=== PATIENT | male | born 1950 | race African-American/Black ===

== ENCOUNTER 2017-12-15 10:45 | Outpatient (RCR) | payer MEDICARE, SELFPAY ==
[2017-11-22 00:48] VITALS: BP 120/74; PULSE 74; RESP 22; TEMP 36.4; O2SAT 96; BMI 22.4
== END 2017-12-22 23:59 ==
LOC: PR 10:45
PROVIDERS: Family Provider Family Medicine; PCP Family Medicine; Visit Provider Internal Medicine Critical Care Medicine
DX: J44.9 Chronic obstructive pulmonary disease, unspecified (principal); J62.8 Pneumoconiosis due to other dust containing silica; Z72.0 Tobacco use
CPT/HCPCS: 97150; G0424

== ENCOUNTER 2018-05-01 20:20 | Inpatient (IN) | payer MEDICARE, OTHER, SELFPAY ==
--- NOTE | 2018-05-01 12:37 | EKG12_ITS ---
Test Reason : REPEAT EKG Blood Pressure : / mmHG Vent. Rate : 079 BPM Atrial Rate : 079 BPM P-R Int : 140 ms QRS Dur : 108 ms QT Int : 360 ms P-R-T Axes : 075 -37 089 degrees QTc Int : 412 ms Normal sinus rhythm Left axis deviation Nonspecific ST and T wave abnormality Abnormal ECG Confirmed by LIZET NGUYEN, SASCHA ([id number]), web content editor MALIA INGRAM ([id number]) on 05/04/2018 5:47:13 PM Referred By: Clayton Joyce Confirmed By:SASCHA HINDS MD
--- NOTE | 2018-05-01 12:38 | EKG12_ITS ---
Test Reason : AM EKG Blood Pressure : / mmHG Vent. Rate : 108 BPM Atrial Rate : 150 BPM P-R Int : 156 ms QRS Dur : 108 ms QT Int : 370 ms P-R-T Axes : 055 -48 083 degrees QTc Int : 495 ms Sinus tachycardia with occasional Premature ventricular complexes Left axis deviation Abnormal ECG Confirmed by DUNCAN NGUYEN, KAHLIL ([id number]), greeting card editor MALIA INGRAM ([id number]) on 05/06/2018 1:45:42 PM Referred By: Clayton Joyce Confirmed By:KAHLIL SONG MD
--- NOTE | 2018-05-01 20:45 | RAD_ITS ---
STUDY: X-RAY CHEST REASON FOR EXAM: Male, 67 years old. Short of breath TECHNIQUE: AP portable COMPARISON: July 07, 2017 FINDINGS: Lungs are hyperinflated.. There is an irregular nodular opacity in the right upper lobe. There appears to be symmetric pulmonary interstitial edema or infiltrate in the left lung There is a small left pleural effusion. Heart is enlarged. Normal mediastinum and yee. Normal visualized pulmonary arteries. Tortuous aortic arch and descending thoracic aorta. Pacemaker noted on the left with electrodes in satisfactory position. Dorsal spine demonstrates spondylosis. Normal visualized ribs, clavicles, and shoulders. There is no demonstrated abnormality of the visualized soft tissue structures of the upper abdomen. RAD/Chest 1 View (Portable) IMPRESSION: Asymmetric unilateral pulmonary interstitial edema or infiltrate with small effusion. Persistent irregular nodular opacity in the right upper lobe Electronically Signed: Elijah Munoz MD at 21:15 EDT , Service support ,
--- NOTE | 2018-05-01 22:50 | DT_ITS ---
This patient was seen during an EMR downtime April 25, 2018 - May 02, 2018. This patient may have a combination of paper and electronic documentation or all paper documentation. All documentation is viewable within the e-chart portion of [facility] for each patient visit.
[2018-05-02] VITALS (14 sets, daily range): BP systolic 103–104; BP diastolic 60–67; PULSE 62–127; RESP 17–25; TEMP 36.7–36.8; O2SAT 97–100
[2018-05-02 03:30] LABS: Absolute Lymphocyte Count 0.22 X10^3/ul (0.83-4.51); Absolute Neutrophil Count 3.3 X10^3/uL (2.0-7.7); Hematocrit 32.5 % (40-54); Hemoglobin 9.3 g/dl (13.0-16.5); Lymphocyte # 0.22 X10^3/ul (4.0); Lymphocyte % 6.3 % (19-41); Mean Corp Hgb Conc 28.6 g/gl (32-36); Mean Corpuscular Hgb 27.7 pg (27.0-32.0); Mean Corpuscular Volume 96.7 fL (80-94); Mean Platelet Vol. 9.4 fl (6.2-12.0); Monocyte# 0.04 X10^3/uL; Monocyte% 1.1 % (0-10); Neutrophil # 3.26 X10^3/uL (2.7-7.7); Neutrophil % 92.6 % (47-70); Platelet Count 102 K/mm3 (150-450); RBC Distribution Width CV 14.3 % (11.6-14.6); RBC Distribution Width SD 48.2 fl (35.1-43.9); Red Blood Count 3.36 M/mm3 (4.6-6.2); White Blood Count 3.5 K/mm3 (4.4-11.0)
[2018-05-02 03:32] LABS: Differential Indicated SCAN CRITERIA MET; POSITIVE COUNT NO; POSITIVE DIFFERENTIAL YES; POSITIVE MORPHOLOGY YES
--- NOTE | 2018-05-02 05:55 | RAD_ITS ---
STUDY: X-RAY CHEST REASON FOR EXAM: Male, 67 years old. Chronic respiratory failure. COPD. TECHNIQUE: PA and lateral chest. COMPARISON: July 07, 2017. FINDINGS: Lungs are hyperinflated. Scattered areas of fibrosis primarily involving the upper lobes. No focal infiltrates or effusions. No pneumothorax. Cardiac pacemaker left hemithorax. Postoperative changes of lower cervical fusion. Normal size heart. Normal mediastinum and yee. Normal visualized pulmonary arteries. Normal visualized aortic arch and descending thoracic aorta. Normal visualized thoracic spine. Normal visualized ribs, clavicles, and shoulders. There is no demonstrated abnormality of the visualized soft tissue structures of the upper abdomen. RAD/Chest PA and Lateral IMPRESSION: Stable chest, no acute cardiopulmonary disease. COPD. Electronically Signed: Arpan Sabillon MD at 7:23 EDT , Service support ,
[2018-05-02] MEDS: hydrALAZINE 50 MG Tablet PO (06:15)
[2018-05-02] MEDS: 0.9% NaCl Peripheral Flush Adult/Peds IV (06:15)
[2018-05-02] MEDS: Budesonide Respules 0.5 MG/2 ML AMPUL.NEB. INHALATION ×2 (07:00→18:43)
[2018-05-02] MEDS: Ipratropium/Albuterol Sulfate 3 ML AMPUL.NEB INHALATION ×5 (07:00→23:03)
[2018-05-02] MEDS: Carvedilol 25 MG Tablet PO ×2 (10:28→21:50)
[2018-05-02] MEDS: APIXABAN 5 MG TABLET PO ×2 (10:28→21:49)
[2018-05-02] MEDS: Isosorbide Mononitrate 30 MG Tablet PO (10:28)
[2018-05-02] MEDS: Spironolactone 25 MG Tablet PO (10:28)
[2018-05-02] MEDS: Ferrous Sulfate 325 MG Tablet PO (10:28)
[2018-05-02] MEDS: Furosemide 40 MG Tablet PO ×2 (10:29→18:00)
[2018-05-02] MEDS: Digoxin 250 MCG Tablet PO (10:29)
[2018-05-02] MEDS: Memantine Hydrochloride 10 MG Tablet PO ×2 (10:29→21:49)
--- NOTE | 2018-05-02 10:29 | CON.PCM_ITS ---
Problem List (1) Acute on chronic respiratory failure with hypoxia and hypercapnia Status: Acute (2) COPD exacerbation Status: Acute (3) PETE (obstructive sleep apnea) Status: Chronic (4) Hypersomnia Status: Chronic (5) Stage 4 very severe COPD by GOLD classification Status: Chronic (6) Tobacco abuse Status: Chronic (7) Silicosis Status: Chronic (8) History of implantable cardioverter-defibrillator (ICD) placement Status: Chronic (9) Hypertension Status: Chronic Reason for Consult Date of Consultation: 05/02/18 Reason for Consultation: Respiratory failure, severe COPD History of Present Illness: The patient is a 67 year old M with past medical history as below, presented to the ED on 05/01/18 with complaints of a 3 day history of increased shortness of breath that worsened with exertion, wheezing, and fatigue. Patient follows the pulmonary clinic with Dr. Arnett and Kenna Trinh for stage IV COPD, PETE, combined respiratory failure, history of silicosis. He is on supplemental oxygen at home. He was last seen in February 2018 for management of his lung problems. He reports compliance with his BiPAP at home. Patient on maintenance dose of 10 mg prednisone daily. Patient does continue to smoke cigarettes despite urging in the past to quit. He admits not wearing his oxygen at all times at home. Patient unable to answer many of my questions, states he forgets easily and his usually handles everything. She is not present at the time of consultation. Patient denies any fever or chills, nausea, vomiting, or diarrhea. He denies any dizziness or orthopnea. Reports very minimal improvement in his overall breathing status. Most information was obtained from patient's medical record. He has required frequent prednisone taper for COPD exacerbations in the past. He has completed cardiac and pulmonary rehab in the past. Vital signs on arrival are stable, blood pressure 113/69, pulse 85, RR 22, 97.8 , and 94% on 3 L of oxygen. Blood work revealed WBC 3.5, hemoglobin 9.3, platelet 102. Chemistry is pending. A blood gas was drawn on 05/01/18 and revealed a pH of 7.33, PCO2 of 95.6, PO2 of 41, bicarbonate 50, and a base excess of 24. I did review past ABG results which were similar to current. Chest x-ray showed nothing acute, just hyperinflation and scattered areas of fibrosis primarily involving the upper lobes. The patient was treated in the emergency room with aerosols, Solu-Medrol, antibiotics, and BiPAP secondary to respiratory distress. He was admitted to the progressive care unit for further evaluation and management. He did improve with BiPAP therapy and wore it throughout the night. He is currently maintaining appropriate saturations on his home oxygen requirement of 3 L. He is on his baseline Lasix therapy of 40 mg p.o. A viral respiratory panel and blood cultures were ordered, however those results are not available to me at this time. Past Medical History Past Medical History (Chronic Problems): Chronic Problems (Last Reviewed 03/04/18 @ 09:42 by Kenna Trinh NP-C) PETE (obstructive sleep apnea) (Chronic) Hypersomnia (Chronic) PETE (obstructive sleep apnea) (Chronic) Stage 4 very severe COPD by GOLD classification (Chronic) Tobacco abuse (Chronic) Hypercapnic respiratory failure, chronic (Chronic) Acute and chronic respiratory failure with hypercapnia (Chronic) Chronic respiratory failure (Chronic) Silicosis (Chronic) History of implantable cardioverter-defibrillator (ICD) placement (Chronic) CHF (congestive heart failure) (Chronic) COPD (chronic obstructive pulmonary disease) (Chronic) Hypertension (Chronic) Medical History: Medical History (Last Reviewed 03/04/18 @ 09:42 by Kenna Trinh NP-C) Hypersomnia (Chronic) G47.10 Pleural effusion (Acute) J90 Runny nose (Acute) R09.89 PETE (obstructive sleep apnea) (Chronic) G47.33 Stage 4 very severe COPD by GOLD classification (Chronic) J44.9 Tobacco abuse (Chronic) Z72.0 Shortness of breath (Acute) R06.02 Confusion (Acute) R41.0 Hypercapnic respiratory failure, chronic (Chronic) J96.12 Acute and chronic respiratory failure with hypercapnia (Chronic) J96.22 Paroxysmal atrial fibrillation (Acute) I48.0 Chronic respiratory failure (Chronic) J96.10 Silicosis (Chronic) J62.8 Acute on chronic systolic (congestive) heart failure (Acute) I50.23 Pneumothorax on left (Acute) J93.9 CHF (congestive heart failure) (Chronic) I50.9 COPD (chronic obstructive pulmonary disease) (Chronic) J44.9 Hypertension (Chronic) I10 Allergies aspirin Adverse Reaction (Verified 11/17/17 12:54) Upset Stomach Home Medications: Ambulatory Orders Medication Instructions Recorded Carvedilol [Coreg (Beta Virgie)] 25 mg PO BID 09/09/15 Finasteride [Proscar] 5 mg PO DAILY 09/09/15 Vit B12/Levomefolate/Vit B6/B2 1 tab PO 1700 09/09/15 [l-Methyl-Mc Tablet] Apixaban [Eliquis] 5 mg PO BID 06/19/16 Isosorbide Mononitrate [Imdur] 30 mg PO DAILY 06/19/16 Oxygen, Home [Home Oxygen] 3 lpm NASAL DAILY PRN PRN 08/12/16 hydrALAZINE [Apresoline] 50 mg PO TID 08/12/16 Spironolactone [Aldactone] 25 mg PO DAILY 12/11/16 Lisinopril [Zestril] 20 mg PO QHS 03/19/17 Acetaminophen [Tylenol Tablet] 650 mg PO Q6H PRN PRN #0 tab 03/22/17 Digoxin [Lanoxin] 250 mcg PO DAILY tab 03/22/17 Furosemide [Lasix] 40 mg PO BID@1000,1800 tab 03/22/17 Potassium Chloride [K-Dur] 20 meq PO DAILY tab 03/22/17 Ferrous Sulfate 325 mg PO DAILY@0800 04/02/17 Gabapentin [Neurontin] 100 mg PO BID 04/02/17 Omeprazole [Prilosec] 20 mg PO BID 04/02/17 predniSONE tablet 10 mg PO DAILY 04/02/17 memantine 5 mg tablet 5 mg PO QDAY 11/09/17 nystatin 100,000 unit/mL oral 5 ml MUCOUS MEMBRANE TID #250 ml 11/17/17 suspension ipratropium-albuterol 0.5 mg-3 3 ml INHALATION Q4H PRN PRN #180 ml 11/18/17 mg(2.5 mg base)/3 mL nebulization soln budesonide 0.5 mg/2 mL suspension 0.5 mg INHALATION Q6H #60 ml 11/19/17 for nebulization prednisone 10 mg tablet 10 mg PO QDAY #30 tab 03/02/18 Surgical History: Surgical History (Last Reviewed 03/04/18 @ 09:42 by ARAM Garcia) History of implantable cardioverter-defibrillator (ICD) placement (Chronic) Z95.810 Surgical History: total knee arthroplasty, - - back surgery, brain surgery for aneurysm. ICD insertion Psychiatric History: No pertinent psych hx Lives: Spouse/ Significant Other Tobacco Use: Cigarettes, Vapor Alcohol: None Drugs: None - *Family History Paternal Family History: Family History (Last Reviewed 03/04/18 @ 09:42 by ARAM Garcia) Father Lung disease Brother Cancer History Items: No pertinent history Maternal Family History: Family History (Last Reviewed 03/04/18 @ 09:42 by ARAM Garcia) Father Lung disease Brother Cancer History Items: No pertinent history Review of Systems Constitutional: Reports: Weakness. Denies: Anorexia, Chills, Fever, Night Sweats, Malaise, Weight Change, Fatigue Eyes: Denies: Vision Change HEENT: Reports: Hard of Hearing. Denies: Difficulty Swallowing, Nasal Congestion, Post Nasal Drip, Sinus Congestion, Sore Throat Cardiovascular: Reports: Chest Tightness. Denies: Chest Pain, Edema, Light Headedness, Orthopnea, Palpitations, Paroxysmal Noc. Dyspnea, Syncope Respiratory: Reports: Shortness of breath upon exertion, Wheezing. Denies: Cough, Hemoptysis, Shortness of breath at rest, Sputum production Gastrointestinal: Denies: Abdominal Pain, Constipation, Diarrhea, Dyspepsia, Hematemesis, Hematochezia, Nausea, Melena, Vomiting Genitourinary: Reports: Frequency. Denies: Dysuria, Hematuria, Retention Musculoskeletal: Denies: Back Pain, Muscle pain Skin: Denies: Rash, Wounds Neurological: Reports: - - Forgetfulness. Denies: Balance problems, Change in Speech, Confusion, Difficulty swallowing, Focal weakness, Numbness, Tingling, Tremor, Seizures Psychiatric: Denies: Anxiety, Depression Endocrine: Denies: Change in Body Habitus, Polydipsia, Polyuria Hematologic/ Lymphatic: Reports: Anemia. Denies: Adenopathy, Easy Bruising Patient Problems: Active and Suspected Problems (Last Reviewed 03/04/18 @ 09:42 by ARAM Garcia) COPD exacerbation (Acute) Acute on chronic respiratory failure with hypoxia and hypercapnia (Acute) Subjective: The patient was seen and examined. He is resting in bed with eyes closed, did witness some apnea. He is not currently wearing BiPAP. Reports dyspnea on exertion is at his baseline. However, also states minimal improvement from arrival overnight. Maintaining appropriate oxygen saturations on 3 L. Denies cough or sputum production. Objective: Clinical Impression(s) from Imaging Studies Chest X-Ray 05/02/18 05:55 IMPRESSION: Stable chest, no acute cardiopulmonary disease. COPD. Electronically Signed: Arpan Sabillon MD at 7:23 EDT , Service support , - Physical Exam General: Alert, Oriented x3, Cooperative, No apparent distress, - - Forgetful. HEENT: Atraumatic, PERRLA, Normocephalic Oral: Moist Mucosa, No Gingival or Mucosal Lesions/ Ulcerations Neck: Supple, No Nodes, Trachea Midline Lungs: No rhonchi, No wheeze, No rales, Diminished, - - Poor air movement. Symmetric expansion, no dullness to percussion. Cardiovascular: Regular rate, Regular Rhythm, Normal S1, Normal S2, No rub noted , No Gallop, - - AICD Abdomen: Bowel Sounds Present, Soft, Non Tender, Non-Distended Extremities: No cyanosis, No edema, Clubbing Skin: No rashes, No breakdown Musculoskeletal: No Tenderness to Palpation of Joints or Extremities Lymphatic: No Cervical, Supraclavicular, or Inguinal Adenopathy Neurological: Cranial nerves II-XII grossly intact, Neuro grossly intact, Motor Exam 5/5 strength throughout Psych/Mental Status: Appropriate, Flat Affect Microbiology Past 72 Hours 05/02/18 03:15 Legionella Antigen - Final Urine, Clean Catch Streptococcus pneumoniae Antigen (M - Final Laboratory Tests Past 24 Hrs 05/02/18 05/02/18 05/02/18 00:28 00:28 03:10 WBC RBC Hgb Hct MCV MCH MCHC RDW RDW Differential Plt Count MPV Immature Gran % (Auto) Neut % (Auto) Lymph % (Auto) [place] % (Auto) Eos % (Auto) Baso % (Auto) Absolute Neuts (auto) Absolute Lymphs (auto) Total Counted Sodium Pending Potassium Pending Chloride Pending Carbon Dioxide Pending Anion Gap Pending BUN Pending Creatinine Pending Est GFR (MDRD) Af Amer Pending Est GFR (MDRD) Non-Af Pending BUN/Creatinine Ratio Pending Glucose Pending Lactic Acid 2.0 Calcium Pending Magnesium 2.0 Troponin I 0.078 H Pending 05/02/18 03:10 WBC 3.5 L RBC 3.36 L Hgb 9.3 L Hct 32.5 L MCV 96.7 H MCH 27.7 MCHC 28.6 L RDW 14.3 RDW Differential 48.2 H Plt Count 102 L MPV 9.4 Immature Gran % (Auto) 0.000 Neut % (Auto) 92.6 H Lymph % (Auto) 6.3 L [place] % (Auto) 1.1 Eos % (Auto) 0.0 Baso % (Auto) 0.0 Absolute Neuts (auto) 3.3 Absolute Lymphs (auto) 0.22 L Total Counted Not Reportable Sodium Potassium Chloride Carbon Dioxide Anion Gap BUN Creatinine Est GFR (MDRD) Af Amer Est GFR (MDRD) Non-Af BUN/Creatinine Ratio Glucose Lactic Acid Calcium Magnesium Troponin I Assessment/Plan All Active Problems (Last Reviewed 03/04/18 @ 09:42 by Kenna Trinh, ÁNGELA-C) COPD exacerbation (Acute) Acute on chronic respiratory failure with hypoxia and hypercapnia (Acute) Pleural effusion (Acute) Runny nose (Acute) Shortness of breath (Acute) Confusion (Acute) Paroxysmal atrial fibrillation (Acute) Acute on chronic systolic (congestive) heart failure (Acute) Pneumothorax on left (Acute) RECOMMENDATIONS 1. Wean oxygen supplementation to keep saturations 88-92%. 2. Encourage incentive spirometer. 3. Increase activity as tolerated, PT consult. 4. Continue aerosols, steroids. Transition to oral tomorrow. 5. Await infectious workup, discontinue antibiotics if negative. 6. Obtain sputum if cough becomes productive. 7. Ambulatory pulse ox prior to discharge 8. Follow-up in the pulmonary clinic in 2 weeks. 9. Continue palliative care IMPRESSIONS 1. Acute on chronic combined respiratory failure secondary to presumed acute COPD exacerbation (stage IV) Improved, BiPAP overnight. Currently on baseline 3 L. Minimal subjective improvement. Chest x-ray showed nothing acute, just hyperinflation and scattered areas of fibrosis primarily involving the upper lobes. Infectious workup is pending, consider discontinuation of antibiotics if negative. Respiratory viral panel was ordered, no results available at this time. Obtain sputum if cough becomes productive. Suspect patient has been taking off oxygen to smoke, likely resulting in persistent hypoxia and increased shortness of breath. Wean oxygen supplementation to keep saturations 88-92%. Increase activity as tolerated. Continue steroids and likely okay to transition to oral tomorrow. Continue breathing treatments. Patient had been following with palliative care in the past, unsure if this has been continued. Can obtain more information when the is present. 2. Ongoing tobacco abuse Patient has been decreasing the amount of cigarettes he smokes per day, was 1 pack per day and states he smokes anywhere from half to three quarters pack per day currently. Discussed with him the benefits of smoking cessation and he verbalized understanding. Also reinforced how smoking complicates his overall breathing status. 3. PETE Compliant with BiPAP at home. Continue BiPAP at night and PRN during the day for increased shortness of breath or lethargy. His ABG did indicate chronic CO2 retention. 4. History of silicosis/ischemic cardiomyopathy S/P AICD/PAF/chronic systolic CHF/hypertension Complicates care, management, recovery, and prognosis. Continue home medications as indicated. Patient on his baseline Lasix therapy of 40 mg p.o. Thank you for the opportunity to participate in this patient's care, please do not hesitate contact us with any further questions or concerns. This note was generated with bContext dictation software. It may contain incorrect words, spelling, and punctuation that were not noted in checking the note before signing.
[2018-05-02] MEDS: Famotidine 20 MG Tablet PO ×2 (10:30→21:49)
[2018-05-02] MEDS: Finasteride 5 MG Tablet PO (10:30)
[2018-05-02 11:11] LABS: Allen Test POS; Base Excess 24 mmol/L (-2 to +2); Bicarbonate 50.3 mmol/L (22-26); Blood Gas Specimen Type ART; EPAP 6; FI02 30; IPAP 12; PO2 41 mmHG (75-100); RR 12; SITE R Radial; SO2 67 % (95-99); Time Given 2315; Total Carbon Dioxide > 50 mmol/L; pCO2 95.6 mmHg (35-45); pH 7.33 (7.35-7.45)
[2018-05-02] MEDS: Ceftriaxone 1 GM/50 mL Premix Q24 IV (11:54)
--- NOTE | 2018-05-02 12:02 | EKG12_ITS ---
Test Reason : SOB Blood Pressure : / mmHG Vent. Rate : 108 BPM Atrial Rate : 108 BPM P-R Int : 144 ms QRS Dur : 110 ms QT Int : 354 ms P-R-T Axes : 072 -31 089 degrees QTc Int : 474 ms Sinus tachycardia with Premature supraventricular complexes and a short run of atrial fibrillation Left axis deviation ST & T wave abnormality, consider lateral ischemia Abnormal ECG Confirmed by LIZET NGUYEN, SASCHA ([id number]), slot editor MALIA INGRAM ([id number]) on 05/04/2018 5:46:58 PM Referred By: Clayton Joyce Confirmed By:SASCHA HINDS MD
[2018-05-02 12:21] LABS: Allen Test POS; Base Excess 21 mmol/L (-2 to +2); Bicarbonate 47.1 mmol/L (22-26); Blood Gas Specimen Type ART; EPAP 6; FI02 30; IPAP 12; PO2 68 mmHG (75-100); RR 24; SITE R Radial; SO2 90 % (95-99); Time Given 200; Total Carbon Dioxide 50 mmol/L; pCO2 87.4 mmHg (35-45); pH 7.34 (7.35-7.45)
--- NOTE | 2018-05-02 15:29 | CASEMGMT ---
RN FAISAL Face to Face with patient for initial transition planning/care coordination assessment. RN CM introduced self and role at [facility]. Patient lying in bed, alert and oriented, at bedside. Patient willing to participate in assessment and is able to answer all questions appropriately. Care providers, pharmacy, and demographics verified. See link attached. Patient wishes to discharge home, denies need for home health at this time. Patient states he has no further needs or concerns at this time. CM to follow for discharge planning needs that may arise. Disposition Plan: Patient to discharge home with family support and follow-up plans in place. Patient receives palliative and CCN services.
[2018-05-02 22:20] LABS: Bedside Glucose 131 mg/dL (70-110)
[2018-05-03] VITALS (24 sets, daily range): BP systolic 94–129; BP diastolic 49–78; PULSE 63–157; RESP 12–21; TEMP 36.3–36.8; O2SAT 86–100
[2018-05-03] MEDS: Ipratropium/Albuterol Sulfate 3 ML AMPUL.NEB INHALATION ×6 (03:42→22:35)
--- NOTE | 2018-05-03 04:45 | CPS ---
increased the FIO2 to 40%
[2018-05-03 06:20] LABS: Absolute Lymphocyte Count 0.25 X10^3/ul (0.83-4.51); Absolute Neutrophil Count 6.3 X10^3/uL (2.0-7.7); Hematocrit 30.7 % (40-54); Hemoglobin 8.7 g/dl (13.0-16.5); Lymphocyte # 0.25 X10^3/ul (4.0); Lymphocyte % 3.7 % (19-41); Mean Corp Hgb Conc 28.3 g/gl (32-36); Mean Corpuscular Hgb 26.9 pg (27.0-32.0); Monocyte# 0.19 X10^3/uL; Monocyte% 2.8 % (0-10); Neutrophil # 6.28 X10^3/uL (2.7-7.7); Neutrophil % 93.5 % (47-70); Platelet Count 96 K/mm3 (150-450); RBC Distribution Width CV 14.6 % (11.6-14.6); Red Blood Count 3.23 M/mm3 (4.6-6.2); White Blood Count 6.7 K/mm3 (4.4-11.0)
[2018-05-03 06:38] LABS: Anion Gap 4 (5-15); BUN 36 mg/dL (7-18); BUN/Creat Ratio 34.6 RATIO (10-20); Calcium,Total 8.5 mg/dL (8.5-10.1); Chloride 94 mmol/L (98-107); Creatinine, Serum 1.04 mg/dL (0.70-1.30); EST Glomerular Filtration Rate 75 mL/min (>60); Est Glom Filt Rate - Afr Amer 91 mL/min (>60); Glucose 137 mg/dL (74-106); Magnesium 2.5 mg/dL (1.6-2.6); Phosphorus 3.2 mg/dL (2.5-4.9); Potassium 4.8 mmol/L (3.5-5.1); Sodium Level 143 mmol/L (136-145)
[2018-05-03 06:52] LABS: Differential Comment SCANNED; Differential Indicated SCAN CRITERIA MET; Hypochromasia 1+; Ovalocyte 2+; POSITIVE COUNT NO; POSITIVE DIFFERENTIAL YES; POSITIVE MORPHOLOGY NO
--- NOTE | 2018-05-03 06:57 | PN_ITS ---
Patient Problems: Active and Suspected Problems (Last Reviewed 03/04/18 @ 09:42 by Kenna Trinh NP-C) COPD exacerbation (Acute) Acute on chronic respiratory failure with hypoxia and hypercapnia (Acute) Vitals/I&O's: Vital Signs Temp Pulse Resp BP Pulse Ox 98.1 F 63 14 105/70 97 05/03/18 06:11 05/03/18 06:12 05/03/18 06:11 05/03/18 06:12 05/03/18 06:11 Oxygen Flow Rate (L/min) 3 Oxygen Delivery Method CPAP Weight: 73.6 kg Intake and Output for Last 24 Hours 05/01/18 05/02/18 05/03/18 23:59 23:59 23:59 Intake Total 946 / 946 Output Total 550 / 550 450 / 450 Balance 396 / 396 -450 / -450 Microbiology Past 72 Hours 05/02/18 03:15 Urine, Clean Catch Legionella Antigen - Final 05/02/18 03:15 Urine, Clean Catch Streptococcus pneumoniae Antigen (M - Final Laboratory Results 05/01/18 23:37: Specimen Type ART, Sample Site R Radial, pH 7.33 L, Bicarbonate Actual 50.3 H, POC Total CO2 > 50, Base Excess 24 H, O2 Saturation 67 L, O2 % 30 , ABG pCO2 95.6 H*, ABG pO2 41 L, Cristian Test POS, Respiration Rate 12, O2 Delivery Device Bi / C PAP, EPAP 6, IPAP 12, Blood Gas Notified Whom ED , Blood Gas Notified Time 2315 05/02/18 00:28: Magnesium 2.0, Troponin I 0.078 H 05/02/18 00:28: Lactic Acid 2.0 05/02/18 01:54: Specimen Type ART, Sample Site R Radial, pH 7.34 L, Bicarbonate Actual 47.1 H, POC Total CO2 50, Base Excess 21 H, O2 Saturation 90 L, O2 % 30, ABG pCO2 87.4 H*, ABG pO2 68 L, Cristian Test POS, Respiration Rate 24, O2 Delivery Device Bi / C PAP, EPAP 6, IPAP 12, Blood Gas Notified Whom ROMEL NGUYEN, Blood Gas Notified Time 200 05/02/18 21:43: POC Glucose 131 H 05/03/18 06:00: WBC 6.7, RBC 3.23 L, Hgb 8.7 L, Hct 30.7 L, MCV 95.0 H, MCH 26.9 L, MCHC 28.3 L, RDW 14.6, RDW Differential 50.0 H, Plt Count 96 L, MPV 9.0 , Immature Gran % (Auto) 0.000, Neut % (Auto) 93.5 H, Lymph % (Auto) 3.7 L, [place] % (Auto) 2.8, Eos % (Auto) 0.0, Baso % (Auto) 0.0, Absolute Neuts (auto) 6.3, Absolute Lymphs (auto) 0.25 L, Total Counted Not Reportable, Differential Comment SCANNED, Hypochromasia 1+, Ovalocytes 2+ 05/03/18 06:00: Sodium 143, Potassium 4.8, Chloride 94 L, Carbon Dioxide 45.0 H , Anion Gap 4 L, BUN 36 H, Creatinine 1.04, Est GFR (MDRD) Af Amer 91, Est GFR ( MDRD) Non-Af 75, BUN/Creatinine Ratio 34.6 H, Glucose 137 H, Calcium 8.5, Phosphorus 3.2, Magnesium 2.5 Current Medications Acetaminophen (Tylenol) 650 mg PO Q4H PRN PRN PRN Reason: PAIN/FEVER Albuterol Sulfate (Ventolin Aerosols) 2.5 mg INHALATION Q2H PRN PRN PRN Reason: DYSPNEA/WHEEZING Albuterol/Ipratropium (Duoneb) 3 ml INHALATION Q4H.RT [facility] Last Admin: 05/03/18 03:42 Dose: 3 ml Apixaban (Eliquis) 5 mg PO BID [facility] Last Admin: 05/02/18 21:49 Dose: 5 mg Budesonide (Pulmicort Aerosol) 0.5 mg INHALATION Q6H.RT [facility] Last Admin: 05/02/18 18:43 Dose: 0.5 mg Carvedilol (Coreg) 25 mg PO BID [facility] Last Admin: 05/02/18 21:50 Dose: 25 mg Digoxin (Lanoxin) 250 mcg PO DAILY [facility] Last Admin: 05/02/18 10:29 Dose: 250 mcg Famotidine (Pepcid) 20 mg PO BID [facility] Last Admin: 05/02/18 21:49 Dose: 20 mg [facility] Last Admin: 05/02/18 10:28 Dose: 325 mg Finasteride (Proscar) 5 mg PO DAILY [facility] Last Admin: 05/02/18 10:30 Dose: 5 mg Furosemide (Lasix) 40 mg PO BIDLX [facility] Last Admin: 05/02/18 18:00 Dose: 40 mg Hydralazine HCl (Apresoline Iv) 10 mg IV Q4H PRN PRN PRN Reason: SBP >=160 Hydralazine HCl (Apresoline) 50 mg PO TID [facility] Last Admin: 05/03/18 06:12 Dose: Not Given Ceftriaxone Sodium (Rocephin) 1 gm in 50 mls @ 100 mls/hr IV Q24 [facility] Last Admin: 05/02/18 11:54 Dose: 100 mls/hr Azithromycin 500 mg/ Dextrose 255 mls @ 250 mls/hr IV Q24 [facility] Last Admin: 05/02/18 15:52 Dose: 250 mls/hr Isosorbide Mononitrate (Imdur) 30 mg PO DAILY [facility] Last Admin: 05/02/18 10:28 Dose: 30 mg Lisinopril (Zestril) 20 mg PO DAILY@2200 [facility] Last Admin: 05/02/18 21:49 Dose: Not Given Memantine (Namenda) 10 mg PO BID [facility] Last Admin: 05/02/18 21:49 Dose: 10 mg Methylprednisolone (Solu-Medrol) 40 mg IV Q6 [facility] Last Admin: 05/03/18 06:16 Dose: 40 mg Morphine Sulfate () 1 - 2 mg IV Q4H PRN PRN PRN Reason: SEVERE PAIN (6-10/10) Nitroglycerin (Nitrostat) 0.4 mg SUBLINGUAL Q5M PRN PRN Reason: CARDIAC/CHEST PAIN Ondansetron HCl (Zofran) 4 mg IV Q6H PRN PRN PRN Reason: NAUSEA/VOMITING Oxycodone HCl (Oxyir) 5 - 10 mg PO Q4H PRN PRN PRN Reason: MILD-MOD PAIN (1-5/10) Promethazine HCl (Phenergan) 6.25 mg IV Q6H PRN PRN PRN Reason: NAUSEA/VOMITING Sodium Chloride () 5 - 30 ml IV UD PRN PRN Reason: SALINE FLUSH Last Admin: 05/02/18 06:15 Dose: 5 ml Spironolactone (Aldactone) 25 mg PO DAILY [facility] Last Admin: 05/02/18 10:28 Dose: 25 mg Medical Necessity - Tobacco Use Smoking Status: Current every day smoker Tobacco Use: Cigarettes, Vapor Assessment/Plan All Active Problems (Last Reviewed 03/04/18 @ 09:42 by Kenna Trinh NP-C) COPD exacerbation (Acute) Acute on chronic respiratory failure with hypoxia and hypercapnia (Acute) Pleural effusion (Acute) Runny nose (Acute) Shortness of breath (Acute) Confusion (Acute) Paroxysmal atrial fibrillation (Acute) Acute on chronic systolic (congestive) heart failure (Acute) Pneumothorax on left (Acute) Acute on chronic hypoxic hypercapnic respiratory failure secondary to comment acquired pneumonia Community-acquired pneumonia Chronic systolic CHF status post AICD/pacemaker Moderate to severe protein calorie malnutrition Tobacco use disorder PETE on BiPAP Iron deficiency anemia Paroxysmal atrial fibrillation Hyperlipidemia Code Visit Inpatient E&M: 38348 Subs Hosp L2
[2018-05-03] MEDS: Budesonide Respules 0.5 MG/2 ML AMPUL.NEB. INHALATION (07:03)
[2018-05-03 07:11] LABS: Bedside Glucose 141 mg/dL (70-110)
--- NOTE | 2018-05-03 08:37 | PCM.PROGNOTE ---
Patient Problems: Active and Suspected Problems (Last Reviewed 03/04/18 @ 09:42 by ARAM Garcia) COPD exacerbation (Acute) Acute on chronic respiratory failure with hypoxia and hypercapnia (Acute) Subjective: The patient was seen and examined. Sitting up in bed in no acute distress, eating his breakfast. More alert this morning. Asking if he can go home. Denies any complaints. Nursing staff reports some air hunger earlier this morning, utilizing BiPAP. Maintaining appropriate saturations on baseline of 3 L of oxygen. Objective: Recent lab and culture data reviewed. WBC 6.7 and hemoglobin is stable at 8.7, chronic anemia. Viral respiratory panel is negative. Blood cultures from 05/02 are pending. Urine strep/Legionella antigens were also negative. Chest x-ray on 05/02 showed hyperinflation with scattered areas of fibrosis, primarily involving the upper lobes. Nothing acute. FiO2 was increased to 40% overnight. - Physical Exam General: Alert, Oriented x3, Cooperative, No apparent distress, - - No conversational dyspnea HEENT: Atraumatic, Normocephalic Oral: Moist Mucosa Neck: Supple, No Nodes, Trachea Midline Lungs: No rhonchi, No wheeze, No rales, Diminished, - - Few faint scattered wheezes intermittently, no dullness to percussion. No tachypnea Cardiovascular: Regular rate, Regular Rhythm, Normal S1, Normal S2, No murmurs, No rub noted, No Gallop Abdomen: Bowel Sounds Present, Soft, Non Tender, Non-Distended Extremities: No cyanosis, No edema, Clubbing Skin: No rashes, No breakdown Musculoskeletal: No Tenderness to Palpation of Joints or Extremities Lymphatic: - - No adenopathy Neurological: Neuro grossly intact Psych/Mental Status: Flat Affect, - - more alert, oriented at this time Vital Signs Temp Pulse Resp BP Pulse Ox 98.1 F 88 18 105/70 98 05/03/18 06:11 05/03/18 07:03 05/03/18 07:03 05/03/18 06:12 05/03/18 07:03 Oxygen Flow Rate (L/min) 3 Oxygen Delivery Method CPAP Weight: 162 lb 4.163 oz Intake and Output for Last 24 Hours 05/01/18 05/02/18 05/03/18 23:59 23:59 23:59 Intake Total 946 / 946 Output Total 550 / 550 450 / 450 Balance 396 / 396 -450 / -450 Microbiology Past 72 Hours 05/02/18 03:15 Legionella Antigen - Final Urine, Clean Catch Streptococcus pneumoniae Antigen (M - Final Laboratory Tests Past 24 Hrs 05/01/18 05/02/18 05/03/18 23:37 01:54 06:00 WBC 6.7 RBC 3.23 L Hgb 8.7 L Hct 30.7 L MCV 95.0 H MCH 26.9 L MCHC 28.3 L RDW 14.6 RDW Differential 50.0 H Plt Count 96 L MPV 9.0 Immature Gran % (Auto) 0.000 Neut % (Auto) 93.5 H Lymph % (Auto) 3.7 L [place] % (Auto) 2.8 Eos % (Auto) 0.0 Baso % (Auto) 0.0 Absolute Neuts (auto) 6.3 Absolute Lymphs (auto) 0.25 L Total Counted Not Reportable Differential Comment SCANNED Hypochromasia 1+ Ovalocytes 2+ Specimen Type ART ART Sample Site R Radial R Radial pH 7.33 L 7.34 L Bicarbonate Actual 50.3 H 47.1 H POC Total CO2 > 50 50 Base Excess 24 H 21 H O2 Saturation 67 L 90 L O2 % 30 30 ABG pCO2 95.6 H* 87.4 H* ABG pO2 41 L 68 L Cristian Test POS POS Respiration Rate 12 24 O2 Delivery Device Bi / C PAP Bi / C PAP EPAP 6 6 IPAP 12 12 Blood Gas Notified Whom ED HOSP Blood Gas Notified Time 2315 200 Sodium Potassium Chloride Carbon Dioxide Anion Gap BUN Creatinine Est GFR (MDRD) Af Amer Est GFR (MDRD) Non-Af BUN/Creatinine Ratio Glucose Hemoglobin A1c Calcium Phosphorus Magnesium 05/03/18 05/03/18 06:00 06:00 WBC RBC Hgb Hct MCV MCH MCHC RDW RDW Differential Plt Count MPV Immature Gran % (Auto) Neut % (Auto) Lymph % (Auto) [place] % (Auto) Eos % (Auto) Baso % (Auto) Absolute Neuts (auto) Absolute Lymphs (auto) Total Counted Differential Comment Hypochromasia Ovalocytes Specimen Type Sample Site pH Bicarbonate Actual POC Total CO2 Base Excess O2 Saturation O2 % ABG pCO2 ABG pO2 Cristian Test Respiration Rate O2 Delivery Device EPAP IPAP Blood Gas Notified Whom Blood Gas Notified Time Sodium 143 Potassium 4.8 Chloride 94 L Carbon Dioxide 45.0 H Anion Gap 4 L BUN 36 H Creatinine 1.04 Est GFR (MDRD) Af Amer 91 Est GFR (MDRD) Non-Af 75 BUN/Creatinine Ratio 34.6 H Glucose 137 H Hemoglobin A1c Pending Calcium 8.5 Phosphorus 3.2 Magnesium 2.5 POC Glucose 05/03/18 05/02/18 06:42 21:43 POC Glucose 141 H 131 H Medical Necessity - Tobacco Use Smoking Status: Current every day smoker Tobacco Use: Cigarettes, Vapor Assessment/Plan All Active Problems (Last Reviewed 03/04/18 @ 09:42 by Kenna Trinh, ÁNGELA-C) COPD exacerbation (Acute) Acute on chronic respiratory failure with hypoxia and hypercapnia (Acute) Pleural effusion (Acute) Runny nose (Acute) Shortness of breath (Acute) Confusion (Acute) Paroxysmal atrial fibrillation (Acute) Acute on chronic systolic (congestive) heart failure (Acute) Pneumothorax on left (Acute) RECOMMENDATIONS 1. Wean oxygen supplementation to keep saturations 88-92%. 2. Encourage incentive spirometer. 3. Increase activity as tolerated, continue PT/OT 4. Transition to oral steroids today, 12 day taper at DC 5. Await infectious workup, discontinue antibiotics if negative. 6. Obtain sputum if cough becomes productive. 7. Ambulatory pulse ox prior to discharge 8. Follow-up in the pulmonary clinic in 2 weeks. 9. Continue palliative care, consider hospice IMPRESSIONS 1. Acute on chronic combined respiratory failure secondary to presumed acute COPD exacerbation (stage IV) Improved, BiPAP overnight beneficial. Currently on baseline 3 L. Chest x-ray showed nothing acute, just hyperinflation and scattered areas of fibrosis primarily involving the upper lobes. Infectious workup is pending, consider discontinuation of antibiotics if negative after 48 hrs. Respiratory viral panel negative. Obtain sputum if cough becomes productive. Patient admits taking off oxygen to smoke, likely resulting in persistent hypoxia and increased shortness of breath. Wean oxygen supplementation to keep saturations 88-92%. Increase activity as tolerated. Continue breathing treatments and transition to oral steroids today. Patient had been following with palliative care in the past, would likely be hospice appropriate. 2. Ongoing tobacco abuse Patient has been decreasing the amount of cigarettes he smokes per day, was 1 pack per day and states he smokes anywhere from half to 3/4 PPD currently. Discussed with him the benefits of smoking cessation and he verbalized understanding. Also reinforced how smoking complicates his overall breathing status. 3. PETE Compliant with BiPAP at home. Continue BiPAP at night and PRN during the day for increased shortness of breath or lethargy. His ABG did indicate chronic CO2 retention. 4. History of silicosis/ischemic cardiomyopathy S/P AICD/PAF/chronic systolic CHF/hypertension Complicates care, management, recovery, and prognosis. Continue home medications as indicated. Patient on his baseline Lasix therapy of 40 mg p.o. Thank you for the opportunity to participate in this patient's care, please do not hesitate contact us with any further questions or concerns. This note was generated with [employer] dictation software. It may contain incorrect words, spelling, and punctuation that were not noted in checking the note before signing.
[2018-05-03 08:39] LABS: Hemoglobin A1c 4.8 % (4.2-6.3)
[2018-05-03] MEDS: Ceftriaxone 1 GM/50 mL Premix Q24 IV (09:41)
[2018-05-03] MEDS: 0.9% NaCl Peripheral Flush Adult/Peds IV ×2 (09:42→20:55)
[2018-05-03] MEDS: APIXABAN 5 MG TABLET PO ×2 (09:57→21:00)
[2018-05-03] MEDS: Famotidine 20 MG Tablet PO ×2 (09:57→21:00)
[2018-05-03] MEDS: Memantine Hydrochloride 10 MG Tablet PO ×2 (09:57→21:00)
[2018-05-03] MEDS: Finasteride 5 MG Tablet PO (09:57)
[2018-05-03] MEDS: Isosorbide Mononitrate 30 MG Tablet PO (09:57)
[2018-05-03] MEDS: Spironolactone 25 MG Tablet PO (09:57)
[2018-05-03] MEDS: Ferrous Sulfate 325 MG Tablet PO (09:57)
[2018-05-03] MEDS: Digoxin 250 MCG Tablet PO (09:57)
[2018-05-03] MEDS: Furosemide 40 MG Tablet PO ×2 (09:57→17:51)
[2018-05-03] MEDS: Carvedilol 25 MG Tablet PO (09:57)
[2018-05-03 11:24] LABS: Anion Gap 3 (5-15); BNP,B-Type NATRIURETIC PEPTIDE 190.5 pg/mL (0-100); BUN 21 mg/dL (7-18); BUN/Creat Ratio 25.3 RATIO (10-20); Calcium,Total 8.5 mg/dL (8.5-10.1); Chloride 96 mmol/L (98-107); Creatinine, Serum 0.83 mg/dL (0.70-1.30); Digoxin Level 0.88 ng/mL (0.80-2.00); EST Glomerular Filtration Rate 98 mL/min (>60); Est Glom Filt Rate - Afr Amer 119 mL/min (>60); Glucose 102 mg/dL (74-106); Potassium 4.7 mmol/L (3.5-5.1); Sodium Level 142 mmol/L (136-145)
[2018-05-03 11:37] LABS: BUN 24 mg/dL (7-18); Glucose 202 mg/dL (74-106)
[2018-05-03 11:38] LABS: Calcium,Total 8.5 mg/dL (8.5-10.1); Carbon Dioxide > 45.0 mmol/L (21.0-32.0); Chloride 92 mmol/L (98-107); EST Glomerular Filtration Rate 79 mL/min (>60); Est Glom Filt Rate - Afr Amer 96 mL/min (>60); Potassium 4.7 mmol/L (3.5-5.1); Sodium Level 141 mmol/L (136-145)
--- NOTE | 2018-05-03 12:25 | PN_ITS ---
<Deja Joseph - Last Filed: 05/03/18 12:25> Patient Problems: Active and Suspected Problems (Last Reviewed 03/04/18 @ 09:42 by Kenna Trinh NP-C) COPD exacerbation (Acute) Acute on chronic respiratory failure with hypoxia and hypercapnia (Acute) Subjective: Patient seen and examined. States he feels somewhat improved. Continues to have shortness of breath. Denies significant cough, fever, chills. No other current complaints. - Physical Exam General: Alert, Oriented x3, Cooperative, No apparent distress HEENT: Atraumatic, PERRLA, EOMI, Normocephalic Neck: Supple, No JVD, Negative Carotid Bruits Lungs: Diminished, Wheezes Cardiovascular: Regular rate, Regular Rhythm, Normal S1, Normal S2, No murmurs Abdomen: Bowel Sounds Present, Soft, Non Tender, Non-Distended Extremities: No clubbing, No cyanosis, No edema, Capillary Refill Less than 3 Seconds Skin: No rashes, No breakdown Musculoskeletal: No Tenderness to Palpation of Joints or Extremities Neurological: Cranial nerves II-XII grossly intact Psych/Mental Status: Normal Affect, Appropriate Vital Signs Temp Pulse Resp BP Pulse Ox 98.1 F 86 20 H 110/78 97 05/03/18 09:45 05/03/18 11:16 05/03/18 11:13 05/03/18 09:59 05/03/18 11:13 Oxygen Flow Rate (L/min) 2 Oxygen Delivery Method Nasal Cannula Weight: 73.6 kg Intake and Output for Last 24 Hours 05/01/18 05/02/18 05/03/18 23:59 23:59 23:59 Intake Total 946 / 946 Output Total 550 / 550 450 / 450 Balance 396 / 396 -450 / -450 Microbiology Past 72 Hours 05/02/18 03:15 Legionella Antigen - Final Urine, Clean Catch Streptococcus pneumoniae Antigen (M - Final Laboratory Tests Past 24 Hrs 05/01/18 05/01/18 05/01/18 Unknown Unknown Unknown WBC RBC Hgb Hct MCV MCH MCHC RDW RDW Differential Plt Count MPV Immature Gran % (Auto) Neut % (Auto) Lymph % (Auto) [place] % (Auto) Eos % (Auto) Baso % (Auto) Absolute Neuts (auto) Absolute Lymphs (auto) Total Counted Differential Comment Hypochromasia Ovalocytes Specimen Type Sample Site pH Bicarbonate Actual POC Total CO2 Base Excess O2 Saturation O2 % ABG pCO2 ABG pO2 Cristian Test Respiration Rate O2 Delivery Device EPAP IPAP Blood Gas Notified Whom Blood Gas Notified Time Sodium 142 Potassium 4.7 Chloride 96 L Carbon Dioxide 43.0 H Anion Gap 3 L BUN 21 H Creatinine 0.83 Est GFR (MDRD) Af Amer 119 Est GFR (MDRD) Non-Af 98 BUN/Creatinine Ratio 25.3 H Glucose 102 Hemoglobin A1c Calcium 8.5 Phosphorus Magnesium Troponin I 0.090 H B-Natriuretic Peptide 190.5 H Digoxin 0.88 05/02/18 05/02/18 05/03/18 01:54 03:10 06:00 WBC 6.7 RBC 3.23 L Hgb 8.7 L Hct 30.7 L MCV 95.0 H MCH 26.9 L MCHC 28.3 L RDW 14.6 RDW Differential 50.0 H Plt Count 96 L MPV 9.0 Immature Gran % (Auto) 0.000 Neut % (Auto) 93.5 H Lymph % (Auto) 3.7 L [place] % (Auto) 2.8 Eos % (Auto) 0.0 Baso % (Auto) 0.0 Absolute Neuts (auto) 6.3 Absolute Lymphs (auto) 0.25 L Total Counted Not Reportable Differential Comment SCANNED Hypochromasia 1+ Ovalocytes 2+ Specimen Type ART Sample Site R Radial pH 7.34 L Bicarbonate Actual 47.1 H POC Total CO2 50 Base Excess 21 H O2 Saturation 90 L O2 % 30 ABG pCO2 87.4 H* ABG pO2 68 L Cristian Test POS Respiration Rate 24 O2 Delivery Device Bi / C PAP EPAP 6 IPAP 12 Blood Gas Notified Whom [facility] Blood Gas Notified Time 200 Sodium 141 Potassium 4.7 Chloride 92 L Carbon Dioxide > 45.0 H* Anion Gap TNP BUN 24 H Creatinine 1.00 Est GFR (MDRD) Af Amer 96 Est GFR (MDRD) Non-Af 79 BUN/Creatinine Ratio 24.0 H Glucose 202 H Hemoglobin A1c Calcium 8.5 Phosphorus Magnesium Troponin I 0.078 H B-Natriuretic Peptide Digoxin 05/03/18 05/03/18 06:00 06:00 WBC RBC Hgb Hct MCV MCH MCHC RDW RDW Differential Plt Count MPV Immature Gran % (Auto) Neut % (Auto) Lymph % (Auto) [place] % (Auto) Eos % (Auto) Baso % (Auto) Absolute Neuts (auto) Absolute Lymphs (auto) Total Counted Differential Comment Hypochromasia Ovalocytes Specimen Type Sample Site pH Bicarbonate Actual POC Total CO2 Base Excess O2 Saturation O2 % ABG pCO2 ABG pO2 Cristian Test Respiration Rate O2 Delivery Device EPAP IPAP Blood Gas Notified Whom Blood Gas Notified Time Sodium 143 Potassium 4.8 Chloride 94 L Carbon Dioxide 45.0 H Anion Gap 4 L BUN 36 H Creatinine 1.04 Est GFR (MDRD) Af Amer 91 Est GFR (MDRD) Non-Af 75 BUN/Creatinine Ratio 34.6 H Glucose 137 H Hemoglobin A1c 4.8 Calcium 8.5 Phosphorus 3.2 Magnesium 2.5 Troponin I B-Natriuretic Peptide Digoxin POC Glucose 05/03/18 05/02/18 06:42 21:43 POC Glucose 141 H 131 H Medical Necessity - Tobacco Use Smoking Status: Current every day smoker Tobacco Use: Cigarettes, Vapor Assessment/Plan All Active Problems (Last Reviewed 03/04/18 @ 09:42 by Kenna Trinh NP-C) COPD exacerbation (Acute) Acute on chronic respiratory failure with hypoxia and hypercapnia (Acute) Pleural effusion (Acute) Runny nose (Acute) Shortness of breath (Acute) Confusion (Acute) Paroxysmal atrial fibrillation (Acute) Acute on chronic systolic (congestive) heart failure (Acute) Pneumothorax on left (Acute) 1. Acute on chronic combined respiratory failure secondary to presumed acute COPD exacerbation stage IV-pulmonary following. On baseline 3 L nasal cannula. Continue BiPAP at bedtime. Continue antibiotics empirically pending cultures. Respiratory panel negative. Patient denies productive cough. Send sputum sample if able. Continue albuterol and DuoNeb aerosols. Transition to oral prednisone today. Patient has been in palliative care in the past and pulmonary medicine feels hospice may be appropriate. We will further discuss with patient. 2. Chronic systolic CHF-no acute exacerbation. Continue home regimen including digoxin, Lasix, lisinopril. 3. Ischemic cardiomyopathy status post AICD 4. Paroxysmal atrial fibrillation-continue Eliquis, carvedilol. 5. Hypertension-stable, continue current regimen. 6. Obstructive sleep apnea-continue BiPAP at night and as needed during the day. 7. Tobacco dependence-encourage smoking cessation. DVT prophylaxis-Eliquis This patient was seen by Deja Jake, CELL SUPPORT OPERATOR-C under the supervision of Dr. Ca. <Shanelle Ca - Last Filed: 05/03/18 14:28> - Physical Exam Vital Signs Temp Pulse Resp BP Pulse Ox 98.1 F 86 20 H 110/78 97 05/03/18 09:45 05/03/18 11:16 05/03/18 11:13 05/03/18 09:59 05/03/18 11:13 Oxygen Flow Rate (L/min) 2 Oxygen Delivery Method Nasal Cannula Weight: 73.6 kg Intake and Output for Last 24 Hours 05/01/18 05/02/18 05/03/18 23:59 23:59 23:59 Intake Total 946 / 946 623 / 623 Output Total 550 / 550 450 / 450 Balance 396 / 396 173 / 173 Microbiology Past 72 Hours 05/02/18 03:15 Legionella Antigen - Final Urine, Clean Catch Streptococcus pneumoniae Antigen (M - Final Laboratory Tests Past 24 Hrs 05/01/18 05/01/18 05/01/18 Unknown Unknown Unknown WBC RBC Hgb Hct MCV MCH MCHC RDW RDW Differential Plt Count MPV Immature Gran % (Auto) Neut % (Auto) Lymph % (Auto) [place] % (Auto) Eos % (Auto) Baso % (Auto) Absolute Neuts (auto) Absolute Lymphs (auto) Total Counted Differential Comment Hypochromasia Ovalocytes Sodium 142 Potassium 4.7 Chloride 96 L Carbon Dioxide 43.0 H Anion Gap 3 L BUN 21 H Creatinine 0.83 Est GFR (MDRD) Af Amer 119 Est GFR (MDRD) Non-Af 98 BUN/Creatinine Ratio 25.3 H Glucose 102 Hemoglobin A1c Calcium 8.5 Phosphorus Magnesium Troponin I 0.090 H B-Natriuretic Peptide 190.5 H Digoxin 0.88 05/02/18 05/03/18 05/03/18 03:10 06:00 06:00 WBC 6.7 RBC 3.23 L Hgb 8.7 L Hct 30.7 L MCV 95.0 H MCH 26.9 L MCHC 28.3 L RDW 14.6 RDW Differential 50.0 H Plt Count 96 L MPV 9.0 Immature Gran % (Auto) 0.000 Neut % (Auto) 93.5 H Lymph % (Auto) 3.7 L [place] % (Auto) 2.8 Eos % (Auto) 0.0 Baso % (Auto) 0.0 Absolute Neuts (auto) 6.3 Absolute Lymphs (auto) 0.25 L Total Counted Not Reportable Differential Comment SCANNED Hypochromasia 1+ Ovalocytes 2+ Sodium 141 143 Potassium 4.7 4.8 Chloride 92 L 94 L Carbon Dioxide > 45.0 H* 45.0 H Anion Gap TNP 4 L BUN 24 H 36 H Creatinine 1.00 1.04 Est GFR (MDRD) Af Amer 96 91 Est GFR (MDRD) Non-Af 79 75 BUN/Creatinine Ratio 24.0 H 34.6 H Glucose 202 H 137 H Hemoglobin A1c Calcium 8.5 8.5 Phosphorus 3.2 Magnesium 2.5 Troponin I 0.078 H B-Natriuretic Peptide Digoxin 05/03/18 06:00 WBC RBC Hgb Hct MCV MCH MCHC RDW RDW Differential Plt Count MPV Immature Gran % (Auto) Neut % (Auto) Lymph % (Auto) [place] % (Auto) Eos % (Auto) Baso % (Auto) Absolute Neuts (auto) Absolute Lymphs (auto) Total Counted Differential Comment Hypochromasia Ovalocytes Sodium Potassium Chloride Carbon Dioxide Anion Gap BUN Creatinine Est GFR (MDRD) Af Amer Est GFR (MDRD) Non-Af BUN/Creatinine Ratio Glucose Hemoglobin A1c 4.8 Calcium Phosphorus Magnesium Troponin I B-Natriuretic Peptide Digoxin POC Glucose 05/03/18 05/02/18 06:42 21:43 POC Glucose 141 H 131 H Assessment/Plan Patient was seen and examined independently of nurse practitioner Deja Joseph. I agree with interval history physical exam and assessment and plan as documented above. Patient denied any new complaints, still feels short of breath, on 3 L of oxygen as at home. Vitals were reviewed, stable Physical exam is significant for significant wheezes in both anterior and posterior lung vargas. Bilateral leg edema, status post Jim wraps We will continue breathing treatment and IV steroids with transition to oral prednisone. Patient will be reassessed in the morning for ambulatory oxygen prior to possible discharge. Code Visit Inpatient E&M: 05440 Subs Hosp L2
[2018-05-03 13:43] LABS: Hematocrit 33.9 % (40-54); Hemoglobin 9.5 g/dl (13.0-16.5); Mean Corpuscular Hgb 26.9 pg (27.0-32.0); Platelet Count 102 K/mm3 (150-450); RBC Distribution Width SD 51.9 fl (35.1-43.9); Red Blood Count 3.53 M/mm3 (4.6-6.2); Scan Indicated on CBC? Y/N NO; White Blood Count 5.7 K/mm3 (4.4-11.0)
[2018-05-03] MEDS: hydrALAZINE 50 MG Tablet PO (14:41)
[2018-05-04] VITALS (11 sets, daily range): BP systolic 112–151; BP diastolic 72–77; PULSE 64–104; RESP 12–20; TEMP 36.6–37.1; O2SAT 96–99
[2018-05-04] MEDS: Ipratropium/Albuterol Sulfate 3 ML AMPUL.NEB INHALATION ×3 (03:05→11:00)
--- NOTE | 2018-05-04 03:10 | CPS ---
decreased Fio2 to 35%
[2018-05-04] MEDS: hydrALAZINE 50 MG Tablet PO (05:20)
--- NOTE | 2018-05-04 08:27 | PN_ITS ---
Patient Problems: Active and Suspected Problems (Last Updated 05/04/18 @ 09:00 by Nola Guzman , IV THERAPY NURSE-C) COPD exacerbation (Acute) Acute on chronic respiratory failure with hypoxia and hypercapnia (Acute) Subjective: The patient was seen and examined. He is sitting up in bed, no acute distress. No conversational dyspnea. Denies any complaints. No cough, sputum production. Does have some intermittent wheezing per nursing staff. Some tachycardia with exertion. Objective: No new labs to review. Culture data reviewed. Remains afebrile and hemodynamically stable. Viral respiratory panel is negative. Blood cultures from 05/02 showed no growth x48 hrs. Urine strep/Legionella antigens were also negative. Chest x-ray on 05/02 showed hyperinflation with scattered areas of fibrosis, primarily involving the upper lobes. Nothing acute. Cumulative fluid balance of as of this morning is +500 mL. - Physical Exam General: Alert, Oriented x3, Cooperative, No apparent distress, - - No conversational dyspnea HEENT: Atraumatic, Normocephalic Oral: Moist Mucosa, No Gingival or Mucosal Lesions/ Ulcerations Neck: Supple, No Nodes, Trachea Midline Lungs: No rhonchi, No rales, Diminished, - - Expiratory wheezes t/o. Poor airflow overall, no dullness to percussion, symmetric expansion Cardiovascular: Regular rate, Regular Rhythm, Normal S1, Normal S2, No murmurs, No rub noted, No Gallop, - - AICD left upper chest Abdomen: Bowel Sounds Present, Soft, Non Tender, Non-Distended Extremities: No cyanosis, No edema, Clubbing Skin: No rashes, No breakdown Musculoskeletal: No Tenderness to Palpation of Joints or Extremities Lymphatic: No Cervical, Supraclavicular, or Inguinal Adenopathy Neurological: Neuro grossly intact Psych/Mental Status: Flat Affect, - - Cooperative, appropriate Vital Signs Temp Pulse Resp BP Pulse Ox 98.7 F 94 20 H 139/76 H 96 05/04/18 02:47 05/04/18 06:49 05/04/18 03:05 05/04/18 05:20 05/04/18 03:05 Oxygen Flow Rate (L/min) 2 Oxygen Delivery Method Bi-pap Weight: 163 lb 5.8 oz Intake and Output for Last 24 Hours 05/02/18 05/03/18 05/04/18 23:59 23:59 23:59 Intake Total 946 / 946 1143 / 1143 Output Total 550 / 550 800 / 800 Balance 396 / 396 343 / 343 Microbiology Past 72 Hours 05/02/18 00:45 Blood Culture - Preliminary Blood Culture (Wb) - Anticubital Right No growth in 48 hours. 05/02/18 00:28 Blood Culture - Preliminary Blood Culture (Wb) - Anticubital Right No growth in 48 hours. 05/02/18 03:15 Legionella Antigen - Final Urine, Clean Catch Streptococcus pneumoniae Antigen (M - Final Laboratory Tests Past 24 Hrs 05/01/18 05/01/18 05/01/18 Unknown Unknown Unknown Sodium 142 Potassium 4.7 Chloride 96 L Carbon Dioxide 43.0 H Anion Gap 3 L BUN 21 H Creatinine 0.83 Est GFR (MDRD) Af Amer 119 Est GFR (MDRD) Non-Af 98 BUN/Creatinine Ratio 25.3 H Glucose 102 Hemoglobin A1c Calcium 8.5 Troponin I 0.090 H B-Natriuretic Peptide 190.5 H Digoxin 0.88 05/02/18 05/03/18 03:10 06:00 Sodium 141 Potassium 4.7 Chloride 92 L Carbon Dioxide > 45.0 H* Anion Gap TNP BUN 24 H Creatinine 1.00 Est GFR (MDRD) Af Amer 96 Est GFR (MDRD) Non-Af 79 BUN/Creatinine Ratio 24.0 H Glucose 202 H Hemoglobin A1c 4.8 Calcium 8.5 Troponin I 0.078 H B-Natriuretic Peptide Digoxin Medical Necessity - Tobacco Use Smoking Status: Current every day smoker Tobacco Use: Cigarettes, Vapor Assessment/Plan All Active Problems (Last Updated 05/04/18 @ 09:00 by Nola Guzman, ÁNGELA-C) COPD exacerbation (Acute) Acute on chronic respiratory failure with hypoxia and hypercapnia (Acute) Confusion (Resolved) Acute on chronic systolic (congestive) heart failure (Acute) Pneumothorax on left (Resolved) RECOMMENDATIONS 1. Wean oxygen supplementation to keep saturations 88-92%. 2. Encourage incentive spirometer. 3. Increase activity as tolerated, continue PT/OT 4. Transition to oral steroids today, 5 day course at d/c then resume baseline 10mg 5. Discontinue antibiotics 6. Ambulatory pulse ox prior to discharge 7. Follow-up in the pulmonary clinic in 2 weeks with IV THERAPY NURSE. 8. Continue palliative care, consider hospice. Okay to discharge from pulmonary perspective. IMPRESSIONS 1. Acute on chronic combined respiratory failure secondary to presumed acute COPD exacerbation (stage IV) Improved, BiPAP overnight beneficial. Chest x-ray showed nothing acute, just hyperinflation and scattered areas of fibrosis primarily involving the upper lobes. Infectious workup is pending, consider discontinuation of antibiotics if negative after 48 hrs. Respiratory viral panel negative. Obtain sputum if cough becomes productive. Patient admits taking off oxygen to smoke, likely resulting in persistent hypoxia and increased shortness of breath. Wean oxygen supplementation to keep saturations 88-92%. Has been weaned to 2 L, wears 3L at home. Increase activity as tolerated. Continue breathing treatments and oral steroids with plans for 5 day burst, then resume maintenance dose of 10mg. Resume home inhaler regimen upon d/c. Patient had been following with palliative care in the past, would likely be hospice appropriate. 2. Ongoing tobacco abuse Patient has been decreasing the amount of cigarettes he smokes per day, was 1 pack per day and states he smokes anywhere from half to 3/4 PPD currently. Discussed with him the benefits of smoking cessation and he verbalized understanding. Also reinforced how smoking and the removal of supplemental oxygen complicates his overall breathing status. 3. PETE Compliant with BiPAP at home. Continue BiPAP at night and PRN during the day for increased shortness of breath or lethargy. His ABG did indicate chronic CO2 retention. Encourage ongoing compliance at home, will decompensate if does not adhere to PAP therapy. 4. History of silicosis/ischemic cardiomyopathy S/P AICD/PAF/chronic systolic CHF/hypertension Complicates care, management, recovery, and prognosis. Continue home medications as indicated. Patient on his baseline Lasix dose. Cumulative fluid balance +500. PT eval with recommendations for further skilled therapy, possible HH? Thank you for the opportunity to participate in this patient's care, please do not hesitate contact us with any further questions or concerns. This note was generated with [employer]ji dictation software. It may contain incorrect words, spelling, and punctuation that were not noted in checking the note before signing.
[2018-05-04] MEDS: Digoxin 250 MCG Tablet PO (08:51)
[2018-05-04] MEDS: Famotidine 20 MG Tablet PO (08:51)
[2018-05-04] MEDS: Finasteride 5 MG Tablet PO (08:51)
[2018-05-04] MEDS: Spironolactone 25 MG Tablet PO (08:52)
[2018-05-04] MEDS: Isosorbide Mononitrate 30 MG Tablet PO (08:52)
[2018-05-04] MEDS: APIXABAN 5 MG TABLET PO (08:52)
[2018-05-04] MEDS: Ferrous Sulfate 325 MG Tablet PO (08:52)
[2018-05-04] MEDS: Furosemide 40 MG Tablet PO (08:52)
[2018-05-04] MEDS: predniSONE 20 MG Tablet 40 MG PO (08:52)
[2018-05-04] MEDS: Memantine Hydrochloride 10 MG Tablet PO (08:52)
[2018-05-04] MEDS: Carvedilol 25 MG Tablet PO (08:52)
[2018-05-04] MEDS: 0.9% NaCl Peripheral Flush Adult/Peds IV (08:55)
[2018-05-04] MEDS: Ceftriaxone 1 GM/50 mL Premix Q24 IV (08:55)
[2018-05-04] MEDS: Bisacodyl 5 MG Tablet 10 MG PO (09:56)
--- NOTE | 2018-05-04 10:55 | PCM.DC ---
- Discharge Diagnoses Current Active Problems: Current Active and Chronic Problems (Last Updated 05/04/18 @ 09:00 by ARAM Camacho) COPD exacerbation (Acute) Acute on chronic respiratory failure with hypoxia and hypercapnia (Acute) You will use the following diet at home:: Cardiac Discharge Activity: Return to Normal Activity Call your doctor if you observe: Fever of 101 or Higher, Shortness of breath, Dizziness, Fainting spells, Chest pain Allergies/Adverse Reactions: Allergies aspirin Adverse Reaction (Verified 11/17/17 12:54) Upset Stomach Medications to take at Discharge Carvedilol [Coreg (Beta Virgie)] 25 mg PO BID 09/09/15 Finasteride [Proscar] 5 mg PO DAILY 09/09/15 Vit B12/Levomefolate/Vit B6/B2 [l-Methyl-Mc Tablet] 1 tab PO 1700 09/09/15 Apixaban [Eliquis] 5 mg PO BID 06/19/16 Isosorbide Mononitrate [Imdur] 30 mg PO DAILY 06/19/16 Oxygen, Home [Home Oxygen] 3 lpm NASAL DAILY PRN PRN 08/12/16 hydrALAZINE [Apresoline] 50 mg PO TID 08/12/16 Spironolactone [Aldactone] 25 mg PO DAILY 12/11/16 Lisinopril [Zestril] 20 mg PO QHS 03/19/17 Acetaminophen [Tylenol Tablet] 650 mg PO Q6H PRN PRN #0 tab 03/22/17 Ferrous Sulfate 325 mg PO DAILY@0800 04/02/17 Gabapentin [Neurontin] 100 mg PO BID 04/02/17 Omeprazole [Prilosec] 20 mg PO BID 04/02/17 predniSONE tablet 10 mg PO DAILY 04/02/17 memantine 5 mg tablet 28 mg PO QDAY 11/09/17 nystatin 100,000 unit/mL oral suspension 5 ml MUCOUS MEMBRANE TID #250 ml 11/17/17 ipratropium-albuterol 0.5 mg-3 mg(2.5 mg base)/3 mL nebulization soln 3 ml INHALATION Q4H PRN PRN #180 ml 11/18/17 budesonide 0.5 mg/2 mL suspension for nebulization 0.5 mg INHALATION Q6H #60 ml 11/19/17 Cyanocobalamin [Vitamin B12] 1,000 mcg PO DAILY@0800 05/02/18 Digoxin [Lanoxin] 250 mcg PO DAILY 05/02/18 Furosemide [Lasix] 40 mg PO BID@1000,1800 05/02/18 Levalbuterol HCl [Xopenex] 3 ml INHALATION Q6H PRN PRN 05/02/18 Nitroglycerin 0.4 mg SL PRN PRN 05/02/18 Potassium Chloride [K-Dur] 20 meq PO DAILY 05/02/18 Prednisone 10 mg PO QDAY 05/02/18 Prednisone 40 mg PO DAILY 4 Days #8 tab 05/04/18 The following prescriptions were given: Prednisone 40 mg PO DAILY 4 Days #8 tab Primary Care Physician: Sony Allison MD [Primary Care Provider] - Please follow up with your Primary Care Physician in: 1 Week Please Follow Up With: Jet Arnett MD - May see STAFF RADIOGRAPHER When: 2 Weeks Proposed Discharge Date: 05/04/18
--- NOTE | 2018-05-04 11:00 | PCM.DC.SUM ---
<Deja Joseph - Last Filed: 05/04/18 11:13> Discharge Date and Diagnosis Date of Admission: 03/19/17 Date of Discharge: 05/04/18 - Primary Discharge Diagnosis Active and Suspected Problems (Last Updated 05/04/18 @ 09:00 by ARAM Camacho) 1. Acute on chronic combined respiratory failure secondary to presumed acute COPD exacerbation stage IV - Secondary Discharge Diagnosis Chronic Problems (Last Updated 05/04/18 @ 09:00 by ARAM Camacho) PETE (obstructive sleep apnea) (Chronic) Hypersomnia (Chronic) Runny nose (Chronic) PETE (obstructive sleep apnea) (Chronic) Stage 4 very severe COPD by GOLD classification (Chronic) Tobacco abuse (Chronic) Shortness of breath (Chronic) Hypercapnic respiratory failure, chronic (Chronic) Acute and chronic respiratory failure with hypercapnia (Chronic) Paroxysmal atrial fibrillation (Chronic) Chronic respiratory failure (Chronic) Silicosis (Chronic) History of implantable cardioverter-defibrillator (ICD) placement (Chronic) CHF (congestive heart failure) (Chronic) Hypertension (Chronic) Hospital Course and Treatment Imaging Results: Diagnostic Data Chest X-Ray 05/02/18 05:55 IMPRESSION: Stable chest, no acute cardiopulmonary disease. COPD. Electronically Signed: Arpan Sabillon MD at 7:23 EDT , Service support , Dr. Arnett- Pulmonary Medicine Operations: None Procedures: None Summary of Care Provided: 1. Acute on chronic combined respiratory failure secondary to presumed acute COPD exacerbation stage IV-pulmonary following. On baseline 3 L nasal cannula. Continue BiPAP at bedtime. Blood culture is negative, antibiotics discontinued. Respiratory panel negative. Patient denies productive cough. Continue home nebulizer and inhaler regimen. Continue oral prednisone at discharge for 40 mg ?5 days. Patient stable for discharge home with continued palliative care. Follow-up with pulmonary medicine in 2 weeks. 2. Chronic systolic CHF-no acute exacerbation. Continue home regimen including digoxin, Lasix, lisinopril. 3. Ischemic cardiomyopathy status post AICD 4. Paroxysmal atrial fibrillation-continue Eliquis, carvedilol. 5. Hypertension-stable, continue current regimen. 6. Obstructive sleep apnea-continue BiPAP at night and as needed during the day. 7. Tobacco dependence-encouraged smoking cessation. General: Alert, Oriented x3, Cooperative, No apparent distress HEENT: Atraumatic, PERRLA, EOMI, Normocephalic Neck: Supple, No JVD, Negative Carotid Bruits Lungs: Diminished, Wheezes Cardiovascular: Regular rate, Regular Rhythm, Normal S1, Normal S2, No murmurs Abdomen: Bowel Sounds Present, Soft, Non Tender, Non-Distended Extremities: No clubbing, No cyanosis, No edema, Capillary Refill Less than 3 Seconds Skin: No rashes, No breakdown Musculoskeletal: No Tenderness to Palpation of Joints or Extremities Neurological: Cranial nerves II-XII grossly intact Psych/Mental Status: Normal Affect, Appropriate Patient seen exam prior to discharge. Physical assessment as noted above. Patient is stable for discharge home with further follow-up recommendations as noted above. This patient was seen by ARAM Jordan under the supervision of Dr. Ca. Discharge Diet: Low fat/ Low Cholesterol Discharge Activity: Return to Normal Activity Call your doctor if you observe: Fever of 101 or Higher, Shortness of breath, Dizziness, Fainting spells, Chest pain Home Medications: Medications to take at Discharge Carvedilol [Coreg (Beta Virgie)] 25 mg PO BID 09/09/15 Finasteride [Proscar] 5 mg PO DAILY 09/09/15 Vit B12/Levomefolate/Vit B6/B2 [l-Methyl-Mc Tablet] 1 tab PO 1700 09/09/15 Apixaban [Eliquis] 5 mg PO BID 06/19/16 Isosorbide Mononitrate [Imdur] 30 mg PO DAILY 06/19/16 Oxygen, Home [Home Oxygen] 3 lpm NASAL DAILY PRN PRN 08/12/16 hydrALAZINE [Apresoline] 50 mg PO TID 08/12/16 Spironolactone [Aldactone] 25 mg PO DAILY 12/11/16 Lisinopril [Zestril] 20 mg PO QHS 03/19/17 Acetaminophen [Tylenol Tablet] 650 mg PO Q6H PRN PRN #0 tab 03/22/17 Ferrous Sulfate 325 mg PO DAILY@0800 04/02/17 Gabapentin [Neurontin] 100 mg PO BID 04/02/17 Omeprazole [Prilosec] 20 mg PO BID 04/02/17 predniSONE tablet 10 mg PO DAILY 04/02/17 memantine 5 mg tablet 28 mg PO QDAY 11/09/17 nystatin 100,000 unit/mL oral suspension 5 ml MUCOUS MEMBRANE TID #250 ml 11/17/17 ipratropium-albuterol 0.5 mg-3 mg(2.5 mg base)/3 mL nebulization soln 3 ml INHALATION Q4H PRN PRN #180 ml 11/18/17 budesonide 0.5 mg/2 mL suspension for nebulization 0.5 mg INHALATION Q6H #60 ml 11/19/17 Cyanocobalamin [Vitamin B12] 1,000 mcg PO DAILY@0800 05/02/18 Digoxin [Lanoxin] 250 mcg PO DAILY 05/02/18 Furosemide [Lasix] 40 mg PO BID@1000,1800 05/02/18 Levalbuterol HCl [Xopenex] 3 ml INHALATION Q6H PRN PRN 05/02/18 Nitroglycerin 0.4 mg SL PRN PRN 05/02/18 Potassium Chloride [K-Dur] 20 meq PO DAILY 05/02/18 Prednisone 10 mg PO QDAY 05/02/18 Prednisone 40 mg PO DAILY 4 Days #8 tab 05/04/18 Following Prescrptions Were Given to Patient: Prednisone 40 mg PO DAILY 4 Days #8 tab Primary Care Physician: Sony Allison MD [Primary Care Provider] - Please follow up with your Primary Care Physician in: 1 Week Please Follow Up With: Jet Arnett MD - May see TECHNICAL MGR When: 2 Weeks Disposition: Palliative Minutes spent on discharge:: 35 Patient Condition:: Stable Medical Necessity - Tobacco Use Smoking Status: Current every day smoker Tobacco Use: Cigarettes, Vapor Meaningful Use Info Meaningful Use Diagnoses (Choose all that apply): None applicable <Paintsil,[place] - Last Filed: 05/04/18 21:16> Discharge Date and Diagnosis - Secondary Discharge Diagnosis Chronic Problems (Last Updated 05/04/18 @ 09:00 by Nola Guzman NP-C) PETE (obstructive sleep apnea) (Chronic) Hypersomnia (Chronic) Runny nose (Chronic) PETE (obstructive sleep apnea) (Chronic) Stage 4 very severe COPD by GOLD classification (Chronic) Tobacco abuse (Chronic) Shortness of breath (Chronic) Hypercapnic respiratory failure, chronic (Chronic) Acute and chronic respiratory failure with hypercapnia (Chronic) Paroxysmal atrial fibrillation (Chronic) Chronic respiratory failure (Chronic) Silicosis (Chronic) History of implantable cardioverter-defibrillator (ICD) placement (Chronic) CHF (congestive heart failure) (Chronic) Hypertension (Chronic) Hospital Course and Treatment Summary of Care Provided: The patient is a 67 year old M [] Code Visit Inpatient E&M: 14977 Disch Hosp
--- NOTE | 2018-05-04 11:11 | DS.PCM_ITS ---
<Deja Joseph - Last Filed: 05/04/18 11:13> Discharge Date and Diagnosis Date of Admission: 03/19/17 Date of Discharge: 05/04/18 - Primary Discharge Diagnosis Active and Suspected Problems (Last Updated 05/04/18 @ 09:00 by ARAM Camacho) 1. Acute on chronic combined respiratory failure secondary to presumed acute COPD exacerbation stage IV - Secondary Discharge Diagnosis Chronic Problems (Last Updated 05/04/18 @ 09:00 by ARAM Camacho) PETE (obstructive sleep apnea) (Chronic) Hypersomnia (Chronic) Runny nose (Chronic) PETE (obstructive sleep apnea) (Chronic) Stage 4 very severe COPD by GOLD classification (Chronic) Tobacco abuse (Chronic) Shortness of breath (Chronic) Hypercapnic respiratory failure, chronic (Chronic) Acute and chronic respiratory failure with hypercapnia (Chronic) Paroxysmal atrial fibrillation (Chronic) Chronic respiratory failure (Chronic) Silicosis (Chronic) History of implantable cardioverter-defibrillator (ICD) placement (Chronic) CHF (congestive heart failure) (Chronic) Hypertension (Chronic) Hospital Course and Treatment Imaging Results: Diagnostic Data Chest X-Ray 05/02/18 05:55 IMPRESSION: Stable chest, no acute cardiopulmonary disease. COPD. Electronically Signed: Arpan Sabillon MD at 7:23 EDT , Service support , Dr. Arnett- Pulmonary Medicine Operations: None Procedures: None Summary of Care Provided: 1. Acute on chronic combined respiratory failure secondary to presumed acute COPD exacerbation stage IV-pulmonary following. On baseline 3 L nasal cannula. Continue BiPAP at bedtime. Blood culture is negative, antibiotics discontinued. Respiratory panel negative. Patient denies productive cough. Continue home nebulizer and inhaler regimen. Continue oral prednisone at discharge for 40 mg ?5 days. Patient stable for discharge home with continued palliative care. Follow-up with pulmonary medicine in 2 weeks. 2. Chronic systolic CHF-no acute exacerbation. Continue home regimen including digoxin, Lasix, lisinopril. 3. Ischemic cardiomyopathy status post AICD 4. Paroxysmal atrial fibrillation-continue Eliquis, carvedilol. 5. Hypertension-stable, continue current regimen. 6. Obstructive sleep apnea-continue BiPAP at night and as needed during the day. 7. Tobacco dependence-encouraged smoking cessation. General: Alert, Oriented x3, Cooperative, No apparent distress HEENT: Atraumatic, PERRLA, EOMI, Normocephalic Neck: Supple, No JVD, Negative Carotid Bruits Lungs: Diminished, Wheezes Cardiovascular: Regular rate, Regular Rhythm, Normal S1, Normal S2, No murmurs Abdomen: Bowel Sounds Present, Soft, Non Tender, Non-Distended Extremities: No clubbing, No cyanosis, No edema, Capillary Refill Less than 3 Seconds Skin: No rashes, No breakdown Musculoskeletal: No Tenderness to Palpation of Joints or Extremities Neurological: Cranial nerves II-XII grossly intact Psych/Mental Status: Normal Affect, Appropriate Patient seen exam prior to discharge. Physical assessment as noted above. Patient is stable for discharge home with further follow-up recommendations as noted above. This patient was seen by ARAM Jordan under the supervision of Dr. Ca. Discharge Diet: Low fat/ Low Cholesterol Discharge Activity: Return to Normal Activity Call your doctor if you observe: Fever of 101 or Higher, Shortness of breath, Dizziness, Fainting spells, Chest pain Home Medications: Medications to take at Discharge Carvedilol [Coreg (Beta Virgie)] 25 mg PO BID 09/09/15 Finasteride [Proscar] 5 mg PO DAILY 09/09/15 Vit B12/Levomefolate/Vit B6/B2 [l-Methyl-Mc Tablet] 1 tab PO 1700 09/09/15 Apixaban [Eliquis] 5 mg PO BID 06/19/16 Isosorbide Mononitrate [Imdur] 30 mg PO DAILY 06/19/16 Oxygen, Home [Home Oxygen] 3 lpm NASAL DAILY PRN PRN 08/12/16 hydrALAZINE [Apresoline] 50 mg PO TID 08/12/16 Spironolactone [Aldactone] 25 mg PO DAILY 12/11/16 Lisinopril [Zestril] 20 mg PO QHS 03/19/17 Acetaminophen [Tylenol Tablet] 650 mg PO Q6H PRN PRN #0 tab 03/22/17 Ferrous Sulfate 325 mg PO DAILY@0800 04/02/17 Gabapentin [Neurontin] 100 mg PO BID 04/02/17 Omeprazole [Prilosec] 20 mg PO BID 04/02/17 predniSONE tablet 10 mg PO DAILY 04/02/17 memantine 5 mg tablet 28 mg PO QDAY 11/09/17 nystatin 100,000 unit/mL oral suspension 5 ml MUCOUS MEMBRANE TID #250 ml ipratropium-albuterol 0.5 mg-3 mg(2.5 mg base)/3 mL nebulization soln 3 ml INHALATION Q4H PRN PRN #180 ml 11/18/17 budesonide 0.5 mg/2 mL suspension for nebulization 0.5 mg INHALATION Q6H #60 ml 11/19/17 Cyanocobalamin [Vitamin B12] 1,000 mcg PO DAILY@0800 05/02/18 Digoxin [Lanoxin] 250 mcg PO DAILY 05/02/18 Furosemide [Lasix] 40 mg PO BID@1000,1800 05/02/18 Levalbuterol HCl [Xopenex] 3 ml INHALATION Q6H PRN PRN 05/02/18 Nitroglycerin 0.4 mg SL PRN PRN 05/02/18 Potassium Chloride [K-Dur] 20 meq PO DAILY 05/02/18 Prednisone 10 mg PO QDAY 05/02/18 Prednisone 40 mg PO DAILY 4 Days #8 tab 05/04/18 Following Prescrptions Were Given to Patient: Prednisone 40 mg PO DAILY 4 Days #8 tab Primary Care Physician: Sony Allison MD [Primary Care Provider] - Please follow up with your Primary Care Physician in: 1 Week Please Follow Up With: Jet Arnett MD - May see COMPOUNDING SCALER When: 2 Weeks Disposition: Palliative Minutes spent on discharge:: 35 Patient Condition:: Stable Medical Necessity - Tobacco Use Smoking Status: Current every day smoker Tobacco Use: Cigarettes, Vapor Meaningful Use Info Meaningful Use Diagnoses (Choose all that apply): None applicable <Paintsil,[place] - Last Filed: 05/04/18 21:16> Discharge Date and Diagnosis - Secondary Discharge Diagnosis Chronic Problems (Last Updated 05/04/18 @ 09:00 by Nola Guzman NP-C) PETE (obstructive sleep apnea) (Chronic) Hypersomnia (Chronic) Runny nose (Chronic) PETE (obstructive sleep apnea) (Chronic) Stage 4 very severe COPD by GOLD classification (Chronic) Tobacco abuse (Chronic) Shortness of breath (Chronic) Hypercapnic respiratory failure, chronic (Chronic) Acute and chronic respiratory failure with hypercapnia (Chronic) Paroxysmal atrial fibrillation (Chronic) Chronic respiratory failure (Chronic) Silicosis (Chronic) History of implantable cardioverter-defibrillator (ICD) placement (Chronic) CHF (congestive heart failure) (Chronic) Hypertension (Chronic) Hospital Course and Treatment Summary of Care Provided: The patient is a 67 year old M [] Code Visit Inpatient E&M: 23217 Disch Hosp
[2018-05-05 13:15] LABS: Bedside Glucose 92 mg/dL (70-110)
== END 2018-05-04 12:45 | disposition hospice, home (50) | DRG 189 ==
LOC: ED 22:50 → PCU 05-02 08:02
PROVIDERS: Internal Medicine Critical Care Medicine; Admitting Provider Family Medicine; Emergency Provider Emergency Medicine; Family Provider Family Medicine; PCP Family Medicine; Visit Provider Internal Medicine
DX: J96.21 Acute and chronic respiratory failure with hypoxia (principal); J44.1 Chronic obstructive pulmonary disease with (acute) exacerbation; I50.22 Chronic systolic (congestive) heart failure; J96.22 Acute and chronic respiratory failure with hypercapnia; I25.5 Ischemic cardiomyopathy; I11.0 Hypertensive heart disease with heart failure; I48.0 Paroxysmal atrial fibrillation; D50.9 Iron deficiency anemia, unspecified; E78.5 Hyperlipidemia, unspecified; G47.33 Obstructive sleep apnea (adult) (pediatric); F17.210 Nicotine dependence, cigarettes, uncomplicated; Z91.14 Patient's other noncompliance with medication regimen; Z99.81 Dependence on supplemental oxygen; Z79.01 Long term (current) use of anticoagulants; Z79.52 Long term (current) use of systemic steroids; Z79.899 Other long term (current) drug therapy; Z95.810 Presence of automatic (implantable) cardiac defibrillator
CPT/HCPCS: 36415; 36600; 71045; 71046; 80048; 80162; 82803; 82962; 83036; 83605; 83735; 83880; 84100; 84484; 85025; 85027; 87040; 87449; 87633; 93005; 94002; 94003; 94640; 97162; 97165; 97530; 97802; A4216; J1940; J2405

== ENCOUNTER 2018-05-05 18:56 | Inpatient (IN) | payer MEDICARE, OTHER, SELFPAY ==
[2018-05-05 18:57] VITALS: BP 117/75; PULSE 79; RESP 30; TEMP 36.5; O2SAT 97; BMI 22.7
[2018-05-05 19:07] VITALS: O2SAT 99
--- NOTE | 2018-05-05 19:30 | EKG12_ITS ---
Test Reason : SOB Blood Pressure : / mmHG Vent. Rate : 081 BPM Atrial Rate : 081 BPM P-R Int : 104 ms QRS Dur : 114 ms QT Int : 356 ms P-R-T Axes : 055 -40 102 degrees QTc Int : 413 ms Sinus rhythm with marked sinus arrhythmia with short MS with occasional Premature ventricular complex es Left axis deviation ST & T wave abnormality, consider lateral ischemia Abnormal ECG Confirmed by DUNCAN NGUYEN, KAHLIL ([id number]), advertising editor MALIA INGRAM ([id number] on 05/11/2018 3:14:32 PM Referred By: VALERIE Confirmed By:KAHLIL SONG MD
--- NOTE | 2018-05-05 19:30 | RAD_ITS ---
STUDY: X-RAY CHEST REASON FOR EXAM: Male, 67 years old. Increased shortness of breath TECHNIQUE: AP portable COMPARISON: May 02, 2018 FINDINGS: There is bilateral interstitial thickening greater on the left. There appears to be a tiny left pleural effusion and small pneumothorax... There appears to be very small nodular opacity in the right upper lobe with possible cavitation. Heart is mildly enlarged. Normal mediastinum and yee. Normal visualized pulmonary arteries. Tortuous mildly calcified aortic arch and descending thoracic aorta. Pacer noted on the left with electrodes in satisfactory position. Normal visualized thoracic spine. Normal visualized ribs, clavicles, and shoulders. Postsurgical changes status post cervical fusion. There is no demonstrated abnormality of the visualized soft tissue structures of the upper abdomen. The interstitial thickening has increased in the left lung since previous study.. Pneumothorax appears slightly smaller. RAD/Chest 1 View (Portable) IMPRESSION: Increasing interstitial thickening in the left lung possibly representing unilateral pulmonary interstitial edema in association with tiny left pleural effusion and pneumothorax. Question nodule in the right upper lobe with cavitation CT would be useful for further assessment if clinically indicated.. N.B. : The above information has been verbally conveyed by Elijah Munoz MD to Dr. Elijah Rock, Referring Physician, on 05/05/2018 20:56:32 (ET). Electronically Signed: Elijah Munoz MD at 20:22 EDT , Service support , N.B. : The above information has been verbally conveyed by Elijah Munoz MD to Dr. Elijah Rock, Referring Physician, on 05/05/2018 20:56:32 (ET).
--- NOTE | 2018-05-05 19:35 | ED.DCSUM_ITS ---
- ER Visit Summary Date of Service: 05/05/18 Chief Complaint: Shortness of breath History of Present Illness: The patient is a 67 M 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 Also has a pacemaker defibrillator and a history of A. fib. Recently was hospitalized that was from the hospital for COPD flare and discharged yesterday. Today's getting progressively more short of breath. No chest pain. No hemoptysis. No history of DVT or PE. He also has a history of CHF and is has bipedal edema. Physical Examination: Male respiratory distress. Vital signs are stable. His pulse ox currently on 3 L is 97%. That is his normal home O2. H exam unremarkable. Neck nontender no JVD. Lungs prolonged story phase bilaterally. Externally wheezing throughout both sides. Equal symmetrical. Heart regular rhythm rate about 80 no murmur. Chest nontender. No subcu air. Abdomen soft nontender. Moving all 4 extremities. Neurovascular intact. Bipedal edema. Calves nontender no cords. Neurologically is awake alert without focal motor deficits. Test Results: Chest x-ray portable one view shows a small left pneumothorax. Chronic changes. Read by myself the radiologist. CT of the chest was done without contrast to define the size of a pneumothorax it appears to be small. There are also possible spiculated lesions and both upper lungs and will need further evaluation to rule out any type of malignancy. I did discuss the CAT scan with the radiologist. His CBC shows a white count of 6 a hemoglobin of 9.8 which is baseline anemia. Platelet count of 118,000. Electrolytes show a chloride of 97 and CO2 greater than 45. Normal creatinine. His troponin is elevated 0.181 it has been increasing over the last several troponins. This will need further evaluation. Emergency Department Course and Treatment: She will be treated with IV Solu- Medrol and aerosols. Treatment Plan: P exam patient is doing much better 2350. He is breathing much easier. I went over all test results with he and his . They did develop a prior small pneumothorax. And are agreeable with admission. I very spoken to the hospitalist. Disposition: Admission Impression: Acute exacerbation COPD Small left pneumothorax Upper lobe lung lesions of uncertain etiology Elevated troponin This note was generated with [employer] dictation software. It may contain incorrect words, spelling, and punctuation that were not noted in review of the chart prior to signing ED Disposition - Plan for ED Patient: Chief Complaint: Shortness of Breath Referrals: Sony Allison MD [Primary Care Provider] -
[2018-05-05] MEDS: MethylPREDNISolone 125 MG/2 ML Vial IV (19:39)
[2018-05-05 19:47] LABS: Absolute Lymphocyte Count 1.27 X10^3/ul (0.83-4.51); Absolute Neutrophil Count 4.9 X10^3/uL (2.0-7.7); Eosinophil# 0.01 X10^3/uL; Eosinophils% 0.2 % (0-5); Hematocrit 34.7 % (40-54); Hemoglobin 9.8 g/dl (13.0-16.5); Lymphocyte # 1.27 X10^3/ul (4.0); Lymphocyte % 20.2 % (19-41); Mean Corp Hgb Conc 28.2 g/gl (32-36); Mean Corpuscular Hgb 26.8 pg (27.0-32.0); Mean Corpuscular Volume 94.8 fL (80-94); Mean Platelet Vol. 9.1 fl (6.2-12.0); Monocyte# 0.08 X10^3/uL; Monocyte% 1.3 % (0-10); Neutrophil # 4.94 X10^3/uL (2.7-7.7); Neutrophil % 78.3 % (47-70); Platelet Count 118 K/mm3 (150-450); RBC Distribution Width CV 14.8 % (11.6-14.6); RBC Distribution Width SD 50.7 fl (35.1-43.9); Red Blood Count 3.66 M/mm3 (4.6-6.2); White Blood Count 6.3 K/mm3 (4.4-11.0)
[2018-05-05 19:49] LABS: POSITIVE COUNT NO; POSITIVE DIFFERENTIAL NO; POSITIVE MORPHOLOGY NO
[2018-05-05] MEDS: Albuterol 2.5 MG/3 ML VIAL.NEB. INHALATION ×2 (19:49)
[2018-05-05 19:51] VITALS: PULSE 81; RESP 18
[2018-05-05 20:06] LABS: BUN 36 mg/dL (7-18); BUN/Creat Ratio 32.1 RATIO (10-20); Chloride 97 mmol/L (98-107); Creatinine, Serum 1.12 mg/dL (0.70-1.30); EST Glomerular Filtration Rate 69 mL/min (>60); Est Glom Filt Rate - Afr Amer 83 mL/min (>60); Glucose 84 mg/dL (74-106); Potassium 4.3 mmol/L (3.5-5.1); Sodium Level 143 mmol/L (136-145)
--- NOTE | 2018-05-05 20:25 | ED.RN ---
lab called with critical lab results. CO2 level <45. Dr. Rock made aware. no new orders at this time
[2018-05-05 20:26] LABS: Carbon Dioxide > 45.0 mmol/L (21.0-32.0)
[2018-05-05 20:56] VITALS: BP 109/84; PULSE 75; RESP 22; O2SAT 98
--- NOTE | 2018-05-05 22:16 | CT_ITS ---
STUDY: CT CHEST WITHOUT CONTRAST REASON FOR EXAM: Male, 67 years old. Pneumothorax RADIATION DOSAGE (If Supplied By Facility): CTDIvol = ( 9.30 ) mGy, DLP = ( 332.19 ) mGycm TECHNIQUE: Transaxial imaging was performed without the administration of intravenous contrast material. Individualized dose optimization techniques were used for this CT. COMPARISON: Chest x-ray from today and CT chest September 05, 2017 FINDINGS: Centrilobular and paraseptal emphysema. Spiculated mass in the suprahilar region right lung measuring up to 3.1 x 1.5 cm in maximal transverse dimensions. There is a 2 x 2.2 cm spiculated mass in the left apex. There is a small left effusion. There is a small basilar pneumothorax on the left. Normal heart and pericardium. Pacer wires right heart. Calcific coronary artery disease. Normal mediastinum. Normal hilar regions. Normal unenhanced pulmonary arteries. Normal aorta arch and descending thoracic aorta. Normal osseous structures. There is no demonstrated abnormality of the visualized upper abdomen. CT/Chest without Contrast IMPRESSION: Small left basilar pneumothorax. Bilateral apical/suprahilar mass is. Neoplasm not excluded. Follow-up recommended. Centrilobular and paraseptal emphysema. Coronary artery disease and pacer. N.B. : The above information has been verbally conveyed by Lele Bearden MD to Dr. Elijah Rock, Covering Physician, on 05/05/2018 23:58:51 (ET). Electronically Signed: Lele Bearden MD at 23:37 EDT , Service support , N.B. : The above information has been verbally conveyed by Lele Bearden MD to Dr. Elijha Rock, Covering Physician, on 05/05/2018 23:58:51 (ET).
[2018-05-05 22:25] VITALS: BP 109/84; PULSE 75; RESP 25; O2SAT 99
[2018-05-05] MEDS: Acetaminophen 500 MG Tablet 1000 MG PO (22:25)
[2018-05-05 23:15] VITALS: BP 107/65; PULSE 71; RESP 17; O2SAT 100
[2018-05-06] VITALS (19 sets, daily range): BP systolic 109–122; BP diastolic 64–74; PULSE 72–141; RESP 16–24; TEMP 36.6–36.8; O2SAT 98–100; BMI 22.0
--- NOTE | 2018-05-06 00:15 | PCM.HP.STD ---
Problem List (1) Pneumothorax Status: Acute (2) Elevated troponin Status: Acute (3) COPD exacerbation Status: Acute History of Present Illness Date of Admission: 05/05/18 Chief Complaint: shortness of breath. The patient is a 67 year old M who was just discharged on the with acute on chronic respiratory failure due to COPD exacerbation. At home on the patient was doing well and his left and when the patient's daughter went to see him he was a short of breath. Patient was using his oxygen and was coughing up phlegm. Patient was brought to the emergency room for evaluation. In the emergency room patient underwent imaging that did show continued left sided pneumothorax but improved. Patient received Solu-Medrol and aerosols. Patient is currently breathing fine. Patient is currently on 4 L and is on 3 L at home. Patient has been using his BiPAP at home when he sleeps. Symptoms are similar to prior episodes of COPD exacerbation and respiratory failure. 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 classification (Chronic) Tobacco abuse (Chronic) Shortness of breath (Chronic) Hypercapnic respiratory failure, chronic (Chronic) Acute and chronic respiratory failure with hypercapnia (Chronic) Paroxysmal atrial fibrillation (Chronic) Chronic respiratory failure (Chronic) Silicosis (Chronic) History of implantable cardioverter-defibrillator (ICD) placement (Chronic) CHF (congestive heart failure) (Chronic) Hypertension (Chronic) Medical History: Medical History (Last Reviewed 05/06/18 @ 00:17 by Ronni Sotomayor DO) Hypersomnia (Chronic) G47.10 Pleural effusion (Inactive) J90 PETE (obstructive sleep apnea) (Chronic) G47.33 Stage 4 very severe COPD by GOLD classification (Chronic) J44.9 Tobacco abuse (Chronic) Z72.0 Shortness of breath (Chronic) R06.02 Confusion (Resolved) R41.0 Hypercapnic respiratory failure, chronic (Chronic) J96.12 Acute and chronic respiratory failure with hypercapnia (Chronic) J96.22 Paroxysmal atrial fibrillation (Chronic) I48.0 Chronic respiratory failure (Chronic) J96.10 Silicosis (Chronic) J62.8 Acute on chronic systolic (congestive) heart failure (Acute) I50.23 CHF (congestive heart failure) (Chronic) I50.9 Hypertension (Chronic) I10 Pneumothorax on left (Resolved) J93.9 Allergies aspirin Adverse Reaction (Verified 05/05/18 18:57) Upset Stomach Home Medications: Ambulatory Orders Medication Instructions Recorded Carvedilol [Coreg (Beta Virgie)] 25 mg PO BID 09/09/15 Finasteride [Proscar] 5 mg PO DAILY 09/09/15 Vit B12/Levomefolate/Vit B6/B2 1 tab PO 1700 09/09/15 [l-Methyl-Mc Tablet] Apixaban [Eliquis] 5 mg PO BID 06/19/16 Isosorbide Mononitrate [Imdur] 30 mg PO DAILY 06/19/16 Oxygen, Home [Home Oxygen] 3 lpm NASAL DAILY PRN PRN 08/12/16 hydrALAZINE [Apresoline] 50 mg PO TID 08/12/16 Spironolactone [Aldactone] 25 mg PO DAILY 12/11/16 Lisinopril [Zestril] 20 mg PO QHS 03/19/17 Acetaminophen [Tylenol Tablet] 650 mg PO Q6H PRN PRN #0 tab 03/22/17 Ferrous Sulfate 325 mg PO DAILY@0800 04/02/17 Gabapentin [Neurontin] 100 mg PO BID 04/02/17 Omeprazole [Prilosec] 20 mg PO BID 04/02/17 memantine 5 mg tablet 28 mg PO QDAY 11/09/17 nystatin 100,000 unit/mL oral 5 ml MUCOUS MEMBRANE TID #250 ml 11/17/17 suspension ipratropium-albuterol 0.5 mg-3 3 ml INHALATION Q4H PRN PRN #180 ml 11/18/17 mg(2.5 mg base)/3 mL nebulization soln budesonide 0.5 mg/2 mL suspension 0.5 mg INHALATION Q6H #60 ml 11/19/17 for nebulization Cyanocobalamin [Vitamin B12] 1,000 mcg PO DAILY@0800 05/02/18 Digoxin [Lanoxin] 250 mcg PO DAILY 05/02/18 Furosemide [Lasix] 40 mg PO BID@1000,1800 05/02/18 Levalbuterol HCl [Xopenex] 3 ml INHALATION Q6H PRN PRN 05/02/18 Nitroglycerin 0.4 mg SL PRN PRN 05/02/18 Potassium Chloride [K-Dur] 20 meq PO DAILY 05/02/18 Prednisone 40 mg PO DAILY 4 Days #8 tab 05/04/18 Surgical History: Surgical History (Last Reviewed 05/06/18 @ 00:17 by Ronni Sotomayor DO) History of implantable cardioverter-defibrillator (ICD) placement (Chronic) Z95.810 Surgical History: total knee arthroplasty, - - back surgery, brain surgery for aneurysm. ICD insertion Psychiatric History: No pertinent psych hx Smoking Status: Former smoker Tobacco Use: Non-smoker - Has not smoked since the Alcohol: None Drugs: None - *Family History Paternal Family History: Family History (Last Reviewed 05/06/18 @ 00:18 by Ronni Sotomayor DO) Father Lung disease Brother Cancer History Items: No pertinent history Maternal Family History: Family History (Last Reviewed 05/06/18 @ 00:18 by Ronni Sotomayor DO) Father Lung disease Brother Cancer History Items: No pertinent history Review of Systems Constitutional: Denies: Anorexia, Chills, Fever Eyes: Denies: Blurred vision, Double vision HEENT: Denies: Head Aches, Sinus Congestion, Sinus Drainage Cardiovascular: Denies: Chest Pain, Palpitations Respiratory: Reports: Cough, Shortness of Breath, Sputum production Gastrointestinal: Denies: Abdominal Pain, Nausea, Vomiting Genitourinary: Denies: Dysuria Musculoskeletal: Denies: Joint Pain, Joint Tenderness Skin: Denies: Rash, Wounds Neurological: Denies: Numbness, Tingling, Focal weakness Psychiatric: Denies: Anxiety, Depression Hematologic/ Lymphatic: Denies: Easy Bruising, Easy Bleeding, Hx of blood clot Comment: Otherwise all review systems are negative except for as mentioned above in HPI and ROS. VTE Information - Inpt Only VTE Present on Admission: No VTE Pharm Prophylaxis ordered?: Yes Patient Problems: Active and Suspected Problems (Last Updated 05/04/18 @ 09:00 by Nola Guzman NP-C) Pneumothorax (Acute) Elevated troponin (Acute) - Physical Exam General: Alert, Cooperative, No apparent distress, - - No respiratory distress. No conversational dyspnea. HEENT: Atraumatic, Normocephalic Oral: Moist Mucosa, No Gingival or Mucosal Lesions/ Ulcerations Neck: No Nodes, Thyroid Normal Size and Texture Lungs: Diminished, Wheezes Cardiovascular: Regular rate, Regular Rhythm, Normal S1, Normal S2 Abdomen: Bowel Sounds Present, Soft, Non Tender, Non-Distended Extremities: No edema, No Calf Tenderness Skin: No rashes, No breakdown Musculoskeletal: No Tenderness to Palpation of Joints or Extremities, No Muscle Wasting Neurological: Neuro grossly intact, Muscle tone normal, Sensory exam intact to light touch and pain Psych/Mental Status: Appropriate, Flat Affect Vital Signs Temp Pulse Resp BP Pulse Ox 36.5 C L 71 17 107/65 100 05/05/18 18:57 05/05/18 23:15 05/05/18 23:15 05/05/18 23:15 05/05/18 23:15 Oxygen Flow Rate (L/min) 3 Oxygen Delivery Method Nasal Cannula Weight: 73.936 kg Body Mass Index (BMI) 22.7 Laboratory Tests Past 24 Hrs 05/05/18 05/05/18 19:18 19:18 WBC 6.3 RBC 3.66 L Hgb 9.8 L Hct 34.7 L MCV 94.8 H MCH 26.8 L MCHC 28.2 L RDW 14.8 H RDW Differential 50.7 H Plt Count 118 L MPV 9.1 Immature Gran % (Auto) 0.000 Neut % (Auto) 78.3 H Lymph % (Auto) 20.2 [place] % (Auto) 1.3 Eos % (Auto) 0.2 Baso % (Auto) 0.0 Absolute Neuts (auto) 4.9 Absolute Lymphs (auto) 1.27 Total Counted Not Reportable Sodium 143 Potassium 4.3 Chloride 97 L Carbon Dioxide > 45.0 H* Anion Gap TNP BUN 36 H Creatinine 1.12 Estim Creat Clear Calc 65.10 Est GFR (MDRD) Af Amer 83 Est GFR (MDRD) Non-Af 69 BUN/Creatinine Ratio 32.1 H Glucose 84 Calcium 9.0 Troponin I 0.181 H Clinical Impression(s) from Imaging Studies Chest X-Ray 05/05/18 19:30 IMPRESSION: Increasing interstitial thickening in the left lung possibly representing unilateral pulmonary interstitial edema in association with tiny left pleural effusion and pneumothorax. Question nodule in the right upper lobe with cavitation CT would be useful for further assessment if clinically indicated.. N.B. : The above information has been verbally conveyed by Elijah Munoz MD to Dr. Elijah Rock, Referring Physician, on 05/05/2018 20:56:32 (ET). Electronically Signed: Elijah Munoz MD at 20:22 EDT , Service support , N.B. : The above information has been verbally conveyed by Elijah Munoz MD to Dr. Elijah Rock, Referring Physician, on 05/05/2018 20:56:32 (ET). Chest CT 05/05/18 22:16 IMPRESSION: Small left basilar pneumothorax. Bilateral apical/suprahilar mass is. Neoplasm not excluded. Follow-up recommended. Centrilobular and paraseptal emphysema. Coronary artery disease and pacer. N.B. : The above information has been verbally conveyed by eLle Bearden MD to Dr. Elijah Rock, Covering Physician, on 05/05/2018 23:58:51 (ET). Electronically Signed: Lele Bearden MD at 23:37 EDT , Service support , N.B. : The above information has been verbally conveyed by Lele Bearden MD to Dr. Elijah Rock, Covering Physician, on 05/05/2018 23:58:51 (ET). Assessment/Plan All Active Problems (Last Updated 05/04/18 @ 09:00 by Nola Guzman NP-C) Pneumothorax (Acute) Elevated troponin (Acute) COPD exacerbation (Acute) Acute on chronic respiratory failure with hypoxia and hypercapnia (Acute) Confusion (Resolved) Acute on chronic systolic (congestive) heart failure (Acute) Pneumothorax on left (Resolved) 1. Acute hypercapnic respiratory failure Patient is otherwise hypercapnic and his BMP shows his CO2 is greater than 45 which he has been before. I feel that his respiratory stress is due to his underlying lung disease but patient may have had a transient mucous plug that may have caused his acute decline. Patient is fine now but will monitor him overnight and watch him. 2. Acute COPD exacerbation Patient is diminished and does have wheezes sure this is actual worsening of where he was before this is just a continued improvement Would continue with Solu-Medrol for now and bronchodilators Consult pulmonology for further input 3. Left-sided pneumothorax Small and not necessary for a chest tube at this time. We will recheck chest x-ray in the morning 4. Advanced care planning: Discussed with the patient's states the patient is DNR Comfort Care arrest and no intubation 5. DVT prophylaxis patient is already anticoagulated on Eliquis. Patient seen and examined on the and billing to reflect as such. Code Visit Inpatient E&M: 47137 Init Hosp L3
--- NOTE | 2018-05-06 00:23 | HP.PCM_ITS ---
Problem List (1) Pneumothorax Status: Acute (2) Elevated troponin Status: Acute (3) COPD exacerbation Status: Acute History of Present Illness Date of Admission: 05/05/18 Chief Complaint: shortness of breath. The patient is a 67 year old M who was just discharged on the with acute on chronic respiratory failure due to COPD exacerbation. At home on the patient was doing well and his left and when the patient's daughter went to see him he was a short of breath. Patient was using his oxygen and was coughing up phlegm. Patient was brought to the emergency room for evaluation. In the emergency room patient underwent imaging that did show continued left sided pneumothorax but improved. Patient received Solu-Medrol and aerosols. Patient is currently breathing fine. Patient is currently on 4 L and is on 3 L at home. Patient has been using his BiPAP at home when he sleeps. Symptoms are similar to prior episodes of COPD exacerbation and respiratory failure. 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 classification (Chronic) Tobacco abuse (Chronic) Shortness of breath (Chronic) Hypercapnic respiratory failure, chronic (Chronic) Acute and chronic respiratory failure with hypercapnia (Chronic) Paroxysmal atrial fibrillation (Chronic) Chronic respiratory failure (Chronic) Silicosis (Chronic) History of implantable cardioverter-defibrillator (ICD) placement (Chronic) CHF (congestive heart failure) (Chronic) Hypertension (Chronic) Medical History: Medical History (Last Reviewed 05/06/18 @ 00:17 by Ronni Sotomayor DO) Hypersomnia (Chronic) G47.10 Pleural effusion (Inactive) J90 PETE (obstructive sleep apnea) (Chronic) G47.33 Stage 4 very severe COPD by GOLD classification (Chronic) J44.9 Tobacco abuse (Chronic) Z72.0 Shortness of breath (Chronic) R06.02 Confusion (Resolved) R41.0 Hypercapnic respiratory failure, chronic (Chronic) J96.12 Acute and chronic respiratory failure with hypercapnia (Chronic) J96.22 Paroxysmal atrial fibrillation (Chronic) I48.0 Chronic respiratory failure (Chronic) J96.10 Silicosis (Chronic) J62.8 Acute on chronic systolic (congestive) heart failure (Acute) I50.23 CHF (congestive heart failure) (Chronic) I50.9 Hypertension (Chronic) I10 Pneumothorax on left (Resolved) J93.9 Allergies aspirin Adverse Reaction (Verified 05/05/18 18:57) Upset Stomach Home Medications: Ambulatory Orders Medication Instructions Recorded Carvedilol [Coreg (Beta Virgie)] 25 mg PO BID 09/09/15 Finasteride [Proscar] 5 mg PO DAILY 09/09/15 Vit B12/Levomefolate/Vit B6/B2 1 tab PO 1700 09/09/15 [l-Methyl-Mc Tablet] Apixaban [Eliquis] 5 mg PO BID 06/19/16 Isosorbide Mononitrate [Imdur] 30 mg PO DAILY 06/19/16 Oxygen, Home [Home Oxygen] 3 lpm NASAL DAILY PRN PRN 08/12/16 hydrALAZINE [Apresoline] 50 mg PO TID 08/12/16 Spironolactone [Aldactone] 25 mg PO DAILY 12/11/16 Lisinopril [Zestril] 20 mg PO QHS 03/19/17 Acetaminophen [Tylenol Tablet] 650 mg PO Q6H PRN PRN #0 tab 03/22/17 Ferrous Sulfate 325 mg PO DAILY@0800 04/02/17 Gabapentin [Neurontin] 100 mg PO BID 04/02/17 Omeprazole [Prilosec] 20 mg PO BID 04/02/17 memantine 5 mg tablet 28 mg PO QDAY 11/09/17 nystatin 100,000 unit/mL oral 5 ml MUCOUS MEMBRANE TID #250 ml 11/17/17 suspension ipratropium-albuterol 0.5 mg-3 3 ml INHALATION Q4H PRN PRN #180 ml 11/18/17 mg(2.5 mg base)/3 mL nebulization soln budesonide 0.5 mg/2 mL suspension 0.5 mg INHALATION Q6H #60 ml 11/19/17 for nebulization Cyanocobalamin [Vitamin B12] 1,000 mcg PO DAILY@0800 05/02/18 Digoxin [Lanoxin] 250 mcg PO DAILY 05/02/18 Furosemide [Lasix] 40 mg PO BID@1000,1800 05/02/18 Levalbuterol HCl [Xopenex] 3 ml INHALATION Q6H PRN PRN 05/02/18 Nitroglycerin 0.4 mg SL PRN PRN 05/02/18 Potassium Chloride [K-Dur] 20 meq PO DAILY 05/02/18 Prednisone 40 mg PO DAILY 4 Days #8 tab 05/04/18 Surgical History: Surgical History (Last Reviewed 05/06/18 @ 00:17 by Ronni Sotomayor DO) History of implantable cardioverter-defibrillator (ICD) placement (Chronic) Z95.810 Surgical History: total knee arthroplasty, - - back surgery, brain surgery for aneurysm. ICD insertion Psychiatric History: No pertinent psych hx Smoking Status: Former smoker Tobacco Use: Non-smoker - Has not smoked since the Alcohol: None Drugs: None - *Family History Paternal Family History: Family History (Last Reviewed 05/06/18 @ 00:18 by Ronni Sotomayor DO) Father Lung disease Brother Cancer History Items: No pertinent history Maternal Family History: Family History (Last Reviewed 05/06/18 @ 00:18 by Ronni Sotomayor DO) Father Lung disease Brother Cancer History Items: No pertinent history Review of Systems Constitutional: Denies: Anorexia, Chills, Fever Eyes: Denies: Blurred vision, Double vision HEENT: Denies: Head Aches, Sinus Congestion, Sinus Drainage Cardiovascular: Denies: Chest Pain, Palpitations Respiratory: Reports: Cough, Shortness of Breath, Sputum production Gastrointestinal: Denies: Abdominal Pain, Nausea, Vomiting Genitourinary: Denies: Dysuria Musculoskeletal: Denies: Joint Pain, Joint Tenderness Skin: Denies: Rash, Wounds Neurological: Denies: Numbness, Tingling, Focal weakness Psychiatric: Denies: Anxiety, Depression Hematologic/ Lymphatic: Denies: Easy Bruising, Easy Bleeding, Hx of blood clot Comment: Otherwise all review systems are negative except for as mentioned above in HPI and ROS. VTE Information - Inpt Only VTE Present on Admission: No VTE Pharm Prophylaxis ordered?: Yes Patient Problems: Active and Suspected Problems (Last Updated 05/04/18 @ 09:00 by Nola Guzman NP-C) Pneumothorax (Acute) Elevated troponin (Acute) - Physical Exam General: Alert, Cooperative, No apparent distress, - - No respiratory distress. No conversational dyspnea. HEENT: Atraumatic, Normocephalic Oral: Moist Mucosa, No Gingival or Mucosal Lesions/ Ulcerations Neck: No Nodes, Thyroid Normal Size and Texture Lungs: Diminished, Wheezes Cardiovascular: Regular rate, Regular Rhythm, Normal S1, Normal S2 Abdomen: Bowel Sounds Present, Soft, Non Tender, Non-Distended Extremities: No edema, No Calf Tenderness Skin: No rashes, No breakdown Musculoskeletal: No Tenderness to Palpation of Joints or Extremities, No Muscle Wasting Neurological: Neuro grossly intact, Muscle tone normal, Sensory exam intact to light touch and pain Psych/Mental Status: Appropriate, Flat Affect Vital Signs Temp Pulse Resp BP Pulse Ox 36.5 C L 71 17 107/65 100 05/05/18 18:57 05/05/18 23:15 05/05/18 23:15 05/05/18 23:15 05/05/18 23:15 Oxygen Flow Rate (L/min) 3 Oxygen Delivery Method Nasal Cannula Weight: 73.936 kg Body Mass Index (BMI) 22.7 Laboratory Tests Past 24 Hrs 05/05/18 05/05/18 19:18 19:18 WBC 6.3 RBC 3.66 L Hgb 9.8 L Hct 34.7 L MCV 94.8 H MCH 26.8 L MCHC 28.2 L RDW 14.8 H RDW Differential 50.7 H Plt Count 118 L MPV 9.1 Immature Gran % (Auto) 0.000 Neut % (Auto) 78.3 H Lymph % (Auto) 20.2 [place] % (Auto) 1.3 Eos % (Auto) 0.2 Baso % (Auto) 0.0 Absolute Neuts (auto) 4.9 Absolute Lymphs (auto) 1.27 Total Counted Not Reportable Sodium 143 Potassium 4.3 Chloride 97 L Carbon Dioxide > 45.0 H* Anion Gap TNP BUN 36 H Creatinine 1.12 Estim Creat Clear Calc 65.10 Est GFR (MDRD) Af Amer 83 Est GFR (MDRD) Non-Af 69 BUN/Creatinine Ratio 32.1 H Glucose 84 Calcium 9.0 Troponin I 0.181 H Clinical Impression(s) from Imaging Studies Chest X-Ray 05/05/18 19:30 IMPRESSION: Increasing interstitial thickening in the left lung possibly representing unilateral pulmonary interstitial edema in association with tiny left pleural effusion and pneumothorax. Question nodule in the right upper lobe with cavitation CT would be useful for further assessment if clinically indicated.. N.B. : The above information has been verbally conveyed by Elijah Munoz MD to Dr. Elijah Rock, Referring Physician, on 05/05/2018 20:56:32 (ET). Electronically Signed: Elijah Munoz MD at 20:22 EDT , Service support , N.B. : The above information has been verbally conveyed by Elijah Munoz MD to Dr. Elijah Rock, Referring Physician, on 05/05/2018 20:56:32 (ET). Chest CT 05/05/18 22:16 IMPRESSION: Small left basilar pneumothorax. Bilateral apical/suprahilar mass is. Neoplasm not excluded. Follow-up recommended. Centrilobular and paraseptal emphysema. Coronary artery disease and pacer. N.B. : The above information has been verbally conveyed by Lele Bearden MD to Dr. Elijah Rock, Covering Physician, on 05/05/2018 23:58:51 (ET). Electronically Signed: Lele Bearden MD at 23:37 EDT , Service support , N.B. : The above information has been verbally conveyed by Lele Bearden MD to Dr. Elijah Rock, Covering Physician, on 05/05/2018 23:58:51 (ET). Assessment/Plan All Active Problems (Last Updated 05/04/18 @ 09:00 by Nola Guzman NP-C) Pneumothorax (Acute) Elevated troponin (Acute) COPD exacerbation (Acute) Acute on chronic respiratory failure with hypoxia and hypercapnia (Acute) Confusion (Resolved) Acute on chronic systolic (congestive) heart failure (Acute) Pneumothorax on left (Resolved) 1. Acute hypercapnic respiratory failure * Patient is otherwise hypercapnic and his BMP shows his CO2 is greater than 45 which he has been before. I feel that his respiratory stress is due to his underlying lung disease but patient may have had a transient mucous plug that may have caused his acute decline. Patient is fine now but will monitor him overnight and watch him. 2. Acute COPD exacerbation * Patient is diminished and does have wheezes sure this is actual worsening of where he was before this is just a continued improvement * Would continue with Solu-Medrol for now and bronchodilators * Consult pulmonology for further input 3. Left-sided pneumothorax * Small and not necessary for a chest tube at this time. * We will recheck chest x-ray in the morning 4. Advanced care planning: Discussed with the patient's states the patient is DNR Comfort Care arrest and no intubation 5. DVT prophylaxis patient is already anticoagulated on Eliquis. Patient seen and examined on the and billing to reflect as such. Code Visit Inpatient E&M: [id number] Init Hosp L3
--- NOTE | 2018-05-06 03:10 | CPS ---
PER DR. LAMBERT OKAY TO LET PT WEAR HIS HOME BIPAP UNIT HS. PT HAS BEEN WEARING AT HOME BETWEEN LAST ADMIT AND NOW AND HIS PNEUMOTHORAX IS SMALLER. FAMILY TO BRING HOME UNIT IN. PT DECLINES WANTING TO USE HOSPITAL MACHINE. NURSING AWARE.
[2018-05-06] MEDS: Ipratropium/Albuterol Sulfate 3 ML AMPUL.NEB INHALATION ×4 (03:25→14:49)
[2018-05-06 04:21] LABS: Anion Gap 5 (5-15); BUN 44 mg/dL (7-18); BUN/Creat Ratio 33.8 RATIO (10-20); Calcium,Total 8.5 mg/dL (8.5-10.1); Chloride 96 mmol/L (98-107); EST Glomerular Filtration Rate 58 mL/min (>60); Est Glom Filt Rate - Afr Amer 70 mL/min (>60); Estimated Creatinine Clearance 54.39 ml/min; Glucose 281 mg/dL (74-106); Potassium 4.5 mmol/L (3.5-5.1); Sodium Level 145 mmol/L (136-145)
[2018-05-06] MEDS: hydrALAZINE 50 MG Tablet PO ×2 (05:31→14:11)
[2018-05-06] MEDS: NYSTATIN 500,000 UNIT/5 ML UDC 500000 UNIT PO ×2 (05:32→14:11)
[2018-05-06] MEDS: 0.9% NaCl Peripheral Flush Adult/Peds IV (05:33)
--- NOTE | 2018-05-06 05:55 | RAD_ITS ---
STUDY: X-RAY CHEST REASON FOR EXAM: Male, 67 years old. LEFT PNEUMOTHORAX TECHNIQUE: Single AP portable view of the chest. COMPARISON: None. FINDINGS: There are interstitial fibrotic changes of the lungs. There is a small left pleural effusion. Normal size heart. Normal mediastinum and yee. Normal visualized pulmonary arteries. Normal visualized aortic arch and descending thoracic aorta. Normal visualized thoracic spine. Normal visualized ribs, clavicles, and shoulders. There is no demonstrated abnormality of the visualized soft tissue structures of the upper abdomen. RAD/Chest 1 View (Portable) IMPRESSION: Small left pleural effusion. There is no evidence of pneumothorax. Electronically Signed: Oscar Aguilera MD at 9:44 EDT Tel , Service support ,
[2018-05-06] MEDS: Budesonide Respules 0.5 MG/2 ML AMPUL.NEB. INHALATION (06:51)
--- NOTE | 2018-05-06 08:35 | PCM.CONS.GEN ---
Problem List (1) Pneumothorax Status: Acute Qualifiers: Encounter type: initial encounter (2) Acute on chronic respiratory failure with hypoxia and hypercapnia Status: Acute (3) PETE (obstructive sleep apnea) Status: Chronic (4) Stage 4 very severe COPD by GOLD classification Status: Chronic (5) 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 (6) Shortness of breath Status: Chronic (7) Paroxysmal atrial fibrillation Status: Chronic (8) Silicosis Status: Chronic (9) CHF (congestive heart failure) Status: Chronic (10) Hypertension Status: Chronic Reason for Consult Date of Consultation: 05/06/18 Reason for Consultation: COPD, pneumothorax History of Present Illness: The patient is a 67 year old M with past medical history as below, just discharged from hospital on May 04, presented to the ED on 05/05 with complaints of shortness of breath. Patient was reportedly doing well, however when the patient's daughter visited him in the 's absence, he seemed to be more short of breath and was coughing up white mucus. He admitted to a coughing episode that may have contributed to his SOB. He tried BiPAP with some relief. He denies smoking since prior to his last admission. He does have some difficulty expectorating sputum and feels his chest is congested intermittently. He denies any dizziness, syncope, or chest pain. Denies any hemoptysis. Chest x-ray on arrival showed increasing interstitial thickening in the left lung, ? unilateral pulmonary interstitial edema in association with tiny left pleural effusion and pneumothorax. Questionable nodule right upper lobe with cavitation. CT of the chest was then obtained and revealed a small left basilar pneumothorax, bilateral apical/suprahilar spiculated masses (right suprahilar measuring 3.1 x 1.5 cm and left apex measuring 2 x 2.2 cm), centrilobular and paraseptal emphysema, pacer and CAD. Small left effusion. Blood work revealed no leukocytosis. Chemistry remarkable for a chloride of 97 and serum bicarb of greater than 45, which is common for this patient. Kidney function was at baseline. Troponin mildly elevated at 0.181. The patient was given IV Solu-Medrol and aerosols, maintained on 2-4 L of oxygen supplementation, and transferred to the progressive care unit for further evaluation and management. Pulmonary was consulted for respiratory failure and pneumothorax. Since then, the patient has been maintained on his baseline oxygen requirements of 3 L. He is compliant with his BiPAP at night in the home environment. A repeat chest x-ray was obtained this morning to reevaluate the pneumothorax. Again, there was a small left pleural effusion, but no evidence of pneumothorax. Patient currently appears to be at his baseline, he has been maintained on 3 L of oxygen. He denies any nausea, vomiting, or diarrhea. He reports compliance with BiPAP and steroid burst he was sent home on from his last admission. 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 Shortness of breath (Chronic) Hypercapnic respiratory failure, chronic (Chronic) Acute and chronic respiratory failure with hypercapnia (Chronic) Paroxysmal atrial fibrillation (Chronic) Chronic respiratory failure (Chronic) Silicosis (Chronic) History of implantable cardioverter-defibrillator (ICD) placement (Chronic) CHF (congestive heart failure) (Chronic) Hypertension (Chronic) Medical History: Medical History (Last Reviewed 05/06/18 @ 00:17 by Ronni Sotomayor DO) Hypersomnia (Chronic) G47.10 Pleural effusion (Inactive) J90 PETE (obstructive sleep apnea) (Chronic) G47.33 Stage 4 very severe COPD by GOLD classification (Chronic) J44.9 Tobacco abuse (Chronic) Z72.0 Shortness of breath (Chronic) R06.02 Confusion (Resolved) R41.0 Hypercapnic respiratory failure, chronic (Chronic) J96.12 Acute and chronic respiratory failure with hypercapnia (Chronic) J96.22 Paroxysmal atrial fibrillation (Chronic) I48.0 Chronic respiratory failure (Chronic) J96.10 Silicosis (Chronic) J62.8 Acute on chronic systolic (congestive) heart failure (Acute) I50.23 CHF (congestive heart failure) (Chronic) I50.9 Hypertension (Chronic) I10 Pneumothorax on left (Resolved) J93.9 Allergies aspirin Adverse Reaction (Verified 05/05/18 18:57) Upset Stomach Home Medications: Ambulatory Orders Medication Instructions Recorded Carvedilol [Coreg (Beta Virgie)] 25 mg PO BID 09/09/15 Finasteride [Proscar] 5 mg PO DAILY 09/09/15 Vit B12/Levomefolate/Vit B6/B2 1 tab PO 1700 09/09/15 [l-Methyl-Mc Tablet] Apixaban [Eliquis] 5 mg PO BID 06/19/16 Isosorbide Mononitrate [Imdur] 30 mg PO DAILY 06/19/16 Oxygen, Home [Home Oxygen] 3 lpm NASAL DAILY PRN PRN 08/12/16 hydrALAZINE [Apresoline] 50 mg PO TID 08/12/16 Spironolactone [Aldactone] 25 mg PO DAILY 12/11/16 Lisinopril [Zestril] 20 mg PO QHS 03/19/17 Acetaminophen [Tylenol Tablet] 650 mg PO Q6H PRN PRN #0 tab 03/22/17 Ferrous Sulfate 325 mg PO DAILY@0800 04/02/17 Gabapentin [Neurontin] 100 mg PO BID 04/02/17 Omeprazole [Prilosec] 20 mg PO BID 04/02/17 memantine 5 mg tablet 28 mg PO QDAY 11/09/17 nystatin 100,000 unit/mL oral 5 ml MUCOUS MEMBRANE TID #250 ml 11/17/17 suspension ipratropium-albuterol 0.5 mg-3 3 ml INHALATION Q4H PRN PRN #180 ml 11/18/17 mg(2.5 mg base)/3 mL nebulization soln budesonide 0.5 mg/2 mL suspension 0.5 mg INHALATION Q6H #60 ml 11/19/17 for nebulization Cyanocobalamin [Vitamin B12] 1,000 mcg PO DAILY@0800 05/02/18 Digoxin [Lanoxin] 250 mcg PO DAILY 05/02/18 Furosemide [Lasix] 40 mg PO BID@1000,1800 05/02/18 Levalbuterol HCl [Xopenex] 3 ml INHALATION Q6H PRN PRN 05/02/18 Nitroglycerin 0.4 mg SL PRN PRN 05/02/18 Potassium Chloride [K-Dur] 20 meq PO DAILY 05/02/18 Prednisone 40 mg PO DAILY 4 Days #8 tab 05/04/18 Surgical History: Surgical History (Last Reviewed 05/06/18 @ 00:17 by Ronni Sotomayor DO) History of implantable cardioverter-defibrillator (ICD) placement (Chronic) Z95.810 Surgical History: total knee arthroplasty, - - back surgery, brain surgery for aneurysm. ICD insertion Psychiatric History: No pertinent psych hx Lives: Spouse/ Significant Other Smoking Status: Former smoker - quit early April 2018 Tobacco Use: Cigarettes Alcohol: None Drugs: None - *Family History Paternal Family History: Family History (Last Reviewed 05/06/18 @ 00:18 by Ronni Sotomayor DO) Father Lung disease Brother Cancer History Items: No pertinent history Maternal Family History: Family History (Last Reviewed 05/06/18 @ 00:18 by Ronni Sotomayor DO) Father Lung disease Brother Cancer History Items: No pertinent history Review of Systems Constitutional: Reports: Fatigue. Denies: Anorexia, Chills, Fever, Night Sweats, Malaise, Weakness, Weight Change Eyes: Denies: Vision Change HEENT: Reports: Post Nasal Drip. Denies: Difficulty Swallowing, Nasal Congestion, Sinus Congestion, Sore Throat Cardiovascular: Denies: Chest Pain, Chest Tightness, Edema, Light Headedness, Orthopnea, Palpitations, Paroxysmal Noc. Dyspnea, Syncope Respiratory: Reports: Cough, Shortness of breath upon exertion, Sputum production, Wheezing - occasional, - - SOB at rest has resolved. Denies: Hemoptysis Gastrointestinal: Denies: Abdominal Pain, Constipation, Diarrhea, Dyspepsia, Hematemesis, Hematochezia, Nausea, Melena, Vomiting Genitourinary: Denies: Dysuria, Frequency, Hematuria, Nocturia, Retention Musculoskeletal: Denies: Back Pain, Muscle pain Skin: Denies: Rash, Wounds Neurological: Denies: Balance problems, Change in Speech, Difficulty swallowing, Focal weakness, Tremor, Seizures Psychiatric: Reports: Depression. Denies: Anxiety Endocrine: Denies: Change in Body Habitus, Polydipsia, Polyuria Hematologic/ Lymphatic: Denies: Adenopathy, Anemia, Easy Bruising, Easy Bleeding Patient Problems: Active and Suspected Problems (Last Reviewed 05/06/18 @ 00:17 by Ronni Sotomayor DO) Pneumothorax (Acute) Elevated troponin (Acute) Subjective: The patient was seen and examined. He does not appear to be in any acute distress. Asking if he can go home. Objective: Clinical Impression(s) from Imaging Studies Chest X-Ray 05/05/18 19:30 IMPRESSION: Increasing interstitial thickening in the left lung possibly representing unilateral pulmonary interstitial edema in association with tiny left pleural effusion and pneumothorax. Question nodule in the right upper lobe with cavitation CT would be useful for further assessment if clinically indicated.. N.B. : The above information has been verbally conveyed by Elijah Munoz MD to Dr. Elijah Rock, Referring Physician, on 05/05/2018 20:56:32 (ET). Electronically Signed: Elijah Munoz MD at 20:22 EDT , Service support , N.B. : The above information has been verbally conveyed by Elijah Munoz MD to Dr. Elijah Rock, Referring Physician, on 05/05/2018 20:56:32 (ET). Chest CT 05/05/18 22:16 IMPRESSION: Small left basilar pneumothorax. Bilateral apical/suprahilar mass is. Neoplasm not excluded. Follow-up recommended. Centrilobular and paraseptal emphysema. Coronary artery disease and pacer. N.B. : The above information has been verbally conveyed by Lele Bearden MD to Dr. Elijah Rock, Covering Physician, on 05/05/2018 23:58:51 (ET). Electronically Signed: Lele Bearden MD at 23:37 EDT , Service support , N.B. : The above information has been verbally conveyed by Lele Bearden MD to Dr. Elijah Rock, Covering Physician, on 05/05/2018 23:58:51 (ET). Chest X-Ray 05/06/18 05:55 IMPRESSION: Small left pleural effusion. There is no evidence of pneumothorax. Electronically Signed: Oscar Aguilera MD at 9:44 EDT Tel , Service support , - Physical Exam General: Alert, Oriented x3, Cooperative, No apparent distress, - - Forgetful HEENT: Atraumatic, Normocephalic Oral: Moist Mucosa, No Gingival or Mucosal Lesions/ Ulcerations Neck: Supple, No JVD, No Nodes, Trachea Midline Lungs: - - Severely diminished throughout, otherwise clear to auscultation. Symmetric expansion, no dullness to percussion Cardiovascular: Normal S1, Normal S2, No murmurs, Irregular Rate, No rub noted, No Gallop Abdomen: Bowel Sounds Present, Soft, Non Tender, Non-Distended Extremities: No cyanosis, No edema, Clubbing, Diminished Peripheral Pulses Skin: No rashes, No breakdown Musculoskeletal: No Tenderness to Palpation of Joints or Extremities Lymphatic: No Cervical, Supraclavicular, or Inguinal Adenopathy Neurological: Cranial nerves II-XII grossly intact, Neuro grossly intact, Motor Exam 5/5 strength throughout Psych/Mental Status: Alert and oriented to time, place, person, mood and affect Vital Signs Temp Pulse Resp BP Pulse Ox 98 F 72 16 110/73 99 05/06/18 05:38 05/06/18 06:51 05/06/18 06:51 05/06/18 01:30 05/06/18 06:51 Oxygen Flow Rate (L/min) 3 Oxygen Delivery Method Nasal Cannula Weight: 158 lb 1.143 oz Body Mass Index (BMI) 22.0 Intake and Output for Last 24 Hours 05/04/18 05/05/18 05/06/18 23:59 23:59 23:59 Intake Total 1100 / 1100 Output Total 325 / 325 Balance 775 / 775 Laboratory Tests Past 24 Hrs 05/06/18 05/06/18 01:45 03:50 Sodium 145 Potassium 4.5 Chloride 96 L Carbon Dioxide 44.0 H Anion Gap 5 BUN 44 H Creatinine 1.30 Estim Creat Clear Calc 54.39 Est GFR (MDRD) Af Amer 70 Est GFR (MDRD) Non-Af 58 L BUN/Creatinine Ratio 33.8 H Glucose 281 H Calcium 8.5 Troponin I 0.163 H 0.153 H Assessment/Plan All Active Problems (Last Reviewed 05/06/18 @ 00:17 by Ronni Sotomayor DO) Pneumothorax (Acute) Elevated troponin (Acute) COPD exacerbation (Acute) Acute on chronic respiratory failure with hypoxia and hypercapnia (Acute) Confusion (Resolved) Acute on chronic systolic (congestive) heart failure (Acute) Pneumothorax on left (Resolved) RECOMMENDATIONS 1. Leave on baseline of 3L oxygen supplementation 2. Encourage incentive spirometer/Acapella 3. Increase activity as tolerated 4. Continue bronchodilators, discontinue Pulmicort secondary to systemic steroids 5. Transition to oral steroids today to complete outpatient course through 05/09. Restart Pulmicort 05/10. 6. Hold BiPAP over the weekend 7. Repeat CT chest on Wednesday IMPRESSIONS 1. Acute on chronic hypoxic and hypercarbic respiratory failure, small left basilar pneumothorax Improved. May have had mucous plug causing acute distress, patient appears to be back at his baseline at this time. Patient does have diffuse scarring and past pneumo. He will need to continue with aggressive pulmonary toileting as at home, including incentive spirometer and Acapella. He was instructed on this. Did have elevated troponin, likely demand ischemia. Patient is a chronic CO2 retainer and does require BiPAP, however CT confirmed pneumothorax so NO BIPAP over the weekend. Will repeat chest CT on Wednesday to reevaluate pneumo. Patient does have end-stage COPD and residual small left effusion that was previously present. Transition patient to prior oral steroids through 05/09, then restart Pulmicort when course completed. 2. Bilateral spiculated lung masses Present greater than 2 years. No further diagnostic studies needed at this time. 3. Tobacco abuse, in remission Quit prior to last admit, denies any smoking at home when discharged. Encourage ongoing cessation. 4. PETE/stage IV very severe COPD/PAF/silicosis/systolic CHF/AICD/hypertension Complicates care, management, recovery, and prognosis. Continue home medications as indicated. Resume home inhaler regimen when discharged. Anticoagulated on Eliquis. Thank you for the opportunity to participate in this patient's care, please do not hesitate contact us with any further questions or concerns. This note was generated with [employer] dictation software. It may contain incorrect words, spelling, and punctuation that were not noted in checking the note before signing.
--- NOTE | 2018-05-06 08:55 | CON.PCM_ITS ---
Problem List (1) Pneumothorax Status: Acute Qualifiers: Encounter type: initial encounter (2) Acute on chronic respiratory failure with hypoxia and hypercapnia Status: Acute (3) PETE (obstructive sleep apnea) Status: Chronic (4) Stage 4 very severe COPD by GOLD classification Status: Chronic (5) 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 (6) Shortness of breath Status: Chronic (7) Paroxysmal atrial fibrillation Status: Chronic (8) Silicosis Status: Chronic (9) CHF (congestive heart failure) Status: Chronic (10) Hypertension Status: Chronic Reason for Consult Date of Consultation: 05/06/18 Reason for Consultation: COPD, pneumothorax History of Present Illness: The patient is a 67 year old M with past medical history as below, just discharged from hospital on May 04, presented to the ED on 05/05 with complaints of shortness of breath. Patient was reportedly doing well, however when the patient's daughter visited him in the 's absence, he seemed to be more short of breath and was coughing up white mucus. He admitted to a coughing episode that may have contributed to his SOB. He tried BiPAP with some relief. He denies smoking since prior to his last admission. He does have some difficulty expectorating sputum and feels his chest is congested intermittently. He denies any dizziness, syncope, or chest pain. Denies any hemoptysis. Chest x-ray on arrival showed increasing interstitial thickening in the left lung, ? unilateral pulmonary interstitial edema in association with tiny left pleural effusion and pneumothorax. Questionable nodule right upper lobe with cavitation. CT of the chest was then obtained and revealed a small left basilar pneumothorax, bilateral apical/suprahilar spiculated masses (right suprahilar measuring 3.1 x 1.5 cm and left apex measuring 2 x 2.2 cm), centrilobular and paraseptal emphysema, pacer and CAD. Small left effusion. Blood work revealed no leukocytosis. Chemistry remarkable for a chloride of 97 and serum bicarb of greater than 45, which is common for this patient. Kidney function was at baseline. Troponin mildly elevated at 0.181. The patient was given IV Solu-Medrol and aerosols, maintained on 2-4 L of oxygen supplementation , and transferred to the progressive care unit for further evaluation and management. Pulmonary was consulted for respiratory failure and pneumothorax. Since then, the patient has been maintained on his baseline oxygen requirements of 3 L. He is compliant with his BiPAP at night in the home environment. A repeat chest x-ray was obtained this morning to reevaluate the pneumothorax. Again, there was a small left pleural effusion, but no evidence of pneumothorax. Patient currently appears to be at his baseline, he has been maintained on 3 L of oxygen. He denies any nausea, vomiting, or diarrhea. He reports compliance with BiPAP and steroid burst he was sent home on from his last admission. Past Medical History Past Medical History (Chronic Problems): Chronic Problems (Last Reviewed 05/06/18 @ 00:17 by Ronin Sotomayor DO) PETE (obstructive sleep apnea) (Chronic) Hypersomnia (Chronic) Runny nose (Chronic) PETE (obstructive sleep apnea) (Chronic) 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 Shortness of breath (Chronic) Hypercapnic respiratory failure, chronic (Chronic) Acute and chronic respiratory failure with hypercapnia (Chronic) Paroxysmal atrial fibrillation (Chronic) Chronic respiratory failure (Chronic) Silicosis (Chronic) History of implantable cardioverter-defibrillator (ICD) placement (Chronic) CHF (congestive heart failure) (Chronic) Hypertension (Chronic) Medical History: Medical History (Last Reviewed 05/06/18 @ 00:17 by Ronni Sotomayor DO) Hypersomnia (Chronic) G47.10 Pleural effusion (Inactive) J90 PETE (obstructive sleep apnea) (Chronic) G47.33 Stage 4 very severe COPD by GOLD classification (Chronic) J44.9 Tobacco abuse (Chronic) Z72.0 Shortness of breath (Chronic) R06.02 Confusion (Resolved) R41.0 Hypercapnic respiratory failure, chronic (Chronic) J96.12 Acute and chronic respiratory failure with hypercapnia (Chronic) J96.22 Paroxysmal atrial fibrillation (Chronic) I48.0 Chronic respiratory failure (Chronic) J96.10 Silicosis (Chronic) J62.8 Acute on chronic systolic (congestive) heart failure (Acute) I50.23 CHF (congestive heart failure) (Chronic) I50.9 Hypertension (Chronic) I10 Pneumothorax on left (Resolved) J93.9 Allergies aspirin Adverse Reaction (Verified 05/05/18 18:57) Upset Stomach Home Medications: Ambulatory Orders Medication Instructions Recorded Carvedilol [Coreg (Beta Virgie)] 25 mg PO BID 09/09/15 Finasteride [Proscar] 5 mg PO DAILY 09/09/15 Vit B12/Levomefolate/Vit B6/B2 1 tab PO 1700 09/09/15 [l-Methyl-Mc Tablet] Apixaban [Eliquis] 5 mg PO BID 06/19/16 Isosorbide Mononitrate [Imdur] 30 mg PO DAILY 06/19/16 Oxygen, Home [Home Oxygen] 3 lpm NASAL DAILY PRN PRN 08/12/16 hydrALAZINE [Apresoline] 50 mg PO TID 08/12/16 Spironolactone [Aldactone] 25 mg PO DAILY 12/11/16 Lisinopril [Zestril] 20 mg PO QHS 03/19/17 Acetaminophen [Tylenol Tablet] 650 mg PO Q6H PRN PRN #0 tab 03/22/17 Ferrous Sulfate 325 mg PO DAILY@0800 04/02/17 Gabapentin [Neurontin] 100 mg PO BID 04/02/17 Omeprazole [Prilosec] 20 mg PO BID 04/02/17 memantine 5 mg tablet 28 mg PO QDAY 11/09/17 nystatin 100,000 unit/mL oral 5 ml MUCOUS MEMBRANE TID #250 ml 11/17/17 suspension ipratropium-albuterol 0.5 mg-3 3 ml INHALATION Q4H PRN PRN #180 ml 11/18/17 mg(2.5 mg base)/3 mL nebulization soln budesonide 0.5 mg/2 mL suspension 0.5 mg INHALATION Q6H #60 ml 11/19/17 for nebulization Cyanocobalamin [Vitamin B12] 1,000 mcg PO DAILY@0800 05/02/18 Digoxin [Lanoxin] 250 mcg PO DAILY 05/02/18 Furosemide [Lasix] 40 mg PO BID@1000,1800 05/02/18 Levalbuterol HCl [Xopenex] 3 ml INHALATION Q6H PRN PRN 05/02/18 Nitroglycerin 0.4 mg SL PRN PRN 05/02/18 Potassium Chloride [K-Dur] 20 meq PO DAILY 05/02/18 Prednisone 40 mg PO DAILY 4 Days #8 tab 05/04/18 Surgical History: Surgical History (Last Reviewed 05/06/18 @ 00:17 by Ronni Sotomayor DO) History of implantable cardioverter-defibrillator (ICD) placement (Chronic) Z95.810 Surgical History: total knee arthroplasty, - - back surgery, brain surgery for aneurysm. ICD insertion Psychiatric History: No pertinent psych hx Lives: Spouse/ Significant Other Smoking Status: Former smoker - quit early April 2018 Tobacco Use: Cigarettes Alcohol: None Drugs: None - *Family History Paternal Family History: Family History (Last Reviewed 05/06/18 @ 00:18 by Ronni Sotomayor DO) Father Lung disease Brother Cancer History Items: No pertinent history Maternal Family History: Family History (Last Reviewed 05/06/18 @ 00:18 by Ronni Sotomayor DO) Father Lung disease Brother Cancer History Items: No pertinent history Review of Systems Constitutional: Reports: Fatigue. Denies: Anorexia, Chills, Fever, Night Sweats , Malaise, Weakness, Weight Change Eyes: Denies: Vision Change HEENT: Reports: Post Nasal Drip. Denies: Difficulty Swallowing, Nasal Congestion, Sinus Congestion, Sore Throat Cardiovascular: Denies: Chest Pain, Chest Tightness, Edema, Light Headedness, Orthopnea, Palpitations, Paroxysmal Noc. Dyspnea, Syncope Respiratory: Reports: Cough, Shortness of breath upon exertion, Sputum production, Wheezing - occasional, - - SOB at rest has resolved. Denies: Hemoptysis Gastrointestinal: Denies: Abdominal Pain, Constipation, Diarrhea, Dyspepsia, Hematemesis, Hematochezia, Nausea, Melena, Vomiting Genitourinary: Denies: Dysuria, Frequency, Hematuria, Nocturia, Retention Musculoskeletal: Denies: Back Pain, Muscle pain Skin: Denies: Rash, Wounds Neurological: Denies: Balance problems, Change in Speech, Difficulty swallowing , Focal weakness, Tremor, Seizures Psychiatric: Reports: Depression. Denies: Anxiety Endocrine: Denies: Change in Body Habitus, Polydipsia, Polyuria Hematologic/ Lymphatic: Denies: Adenopathy, Anemia, Easy Bruising, Easy Bleeding Patient Problems: Active and Suspected Problems (Last Reviewed 05/06/18 @ 00:17 by Ronni Sotomayor DO) Pneumothorax (Acute) Elevated troponin (Acute) Subjective: The patient was seen and examined. He does not appear to be in any acute distress. Asking if he can go home. Objective: Clinical Impression(s) from Imaging Studies Chest X-Ray 05/05/18 19:30 IMPRESSION: Increasing interstitial thickening in the left lung possibly representing unilateral pulmonary interstitial edema in association with tiny left pleural effusion and pneumothorax. Question nodule in the right upper lobe with cavitation CT would be useful for further assessment if clinically indicated.. N.B. : The above information has been verbally conveyed by Elijah Munoz MD to Dr. Elijah Rock, Referring Physician, on 05/05/2018 20:56:32 (ET). Electronically Signed: Elijah Munoz MD at 20:22 EDT , Service support , N.B. : The above information has been verbally conveyed by Elijah Munoz MD to Dr. Elijah Rock, Referring Physician, on 05/05/2018 20:56:32 (ET). Chest CT 05/05/18 22:16 IMPRESSION: Small left basilar pneumothorax. Bilateral apical/suprahilar mass is. Neoplasm not excluded. Follow-up recommended. Centrilobular and paraseptal emphysema. Coronary artery disease and pacer. N.B. : The above information has been verbally conveyed by Lele Bearden MD to Dr. Elijah Rock, Covering Physician, on 05/05/2018 23:58:51 (ET). Electronically Signed: Lele Bearedn MD at 23:37 EDT , Service support , N.B. : The above information has been verbally conveyed by Lele Bearden MD to Dr. Elijah Rock, Covering Physician, on 05/05/2018 23:58:51 (ET). Chest X-Ray 05/06/18 05:55 IMPRESSION: Small left pleural effusion. There is no evidence of pneumothorax. Electronically Signed: Oscar Aguilera MD at 9:44 EDT Tel , Service support , - Physical Exam General: Alert, Oriented x3, Cooperative, No apparent distress, - - Forgetful HEENT: Atraumatic, Normocephalic Oral: Moist Mucosa, No Gingival or Mucosal Lesions/ Ulcerations Neck: Supple, No JVD, No Nodes, Trachea Midline Lungs: - - Severely diminished throughout, otherwise clear to auscultation. Symmetric expansion, no dullness to percussion Cardiovascular: Normal S1, Normal S2, No murmurs, Irregular Rate, No rub noted, No Gallop Abdomen: Bowel Sounds Present, Soft, Non Tender, Non-Distended Extremities: No cyanosis, No edema, Clubbing, Diminished Peripheral Pulses Skin: No rashes, No breakdown Musculoskeletal: No Tenderness to Palpation of Joints or Extremities Lymphatic: No Cervical, Supraclavicular, or Inguinal Adenopathy Neurological: Cranial nerves II-XII grossly intact, Neuro grossly intact, Motor Exam 5/5 strength throughout Psych/Mental Status: Alert and oriented to time, place, person, mood and affect Vital Signs Temp Pulse Resp BP Pulse Ox 98 F 72 16 110/73 99 05/06/18 05:38 05/06/18 06:51 05/06/18 06:51 05/06/18 01:30 05/06/18 06:51 Oxygen Flow Rate (L/min) 3 Oxygen Delivery Method Nasal Cannula Weight: 158 lb 1.143 oz Body Mass Index (BMI) 22.0 Intake and Output for Last 24 Hours 05/04/18 05/05/18 05/06/18 23:59 23:59 23:59 Intake Total 1100 / 1100 Output Total 325 / 325 Balance 775 / 775 Laboratory Tests Past 24 Hrs 05/06/18 05/06/18 01:45 03:50 Sodium 145 Potassium 4.5 Chloride 96 L Carbon Dioxide 44.0 H Anion Gap 5 BUN 44 H Creatinine 1.30 Estim Creat Clear Calc 54.39 Est GFR (MDRD) Af Amer 70 Est GFR (MDRD) Non-Af 58 L BUN/Creatinine Ratio 33.8 H Glucose 281 H Calcium 8.5 Troponin I 0.163 H 0.153 H Assessment/Plan All Active Problems (Last Reviewed 05/06/18 @ 00:17 by Ronni Sotomayor DO) Pneumothorax (Acute) Elevated troponin (Acute) COPD exacerbation (Acute) Acute on chronic respiratory failure with hypoxia and hypercapnia (Acute) Confusion (Resolved) Acute on chronic systolic (congestive) heart failure (Acute) Pneumothorax on left (Resolved) RECOMMENDATIONS 1. Leave on baseline of 3L oxygen supplementation 2. Encourage incentive spirometer/Acapella 3. Increase activity as tolerated 4. Continue bronchodilators, discontinue Pulmicort secondary to systemic steroids 5. Transition to oral steroids today to complete outpatient course through . Restart Pulmicort 05/10. 6. Hold BiPAP over the weekend 7. Repeat CT chest on Wednesday IMPRESSIONS 1. Acute on chronic hypoxic and hypercarbic respiratory failure, small left basilar pneumothorax Improved. May have had mucous plug causing acute distress, patient appears to be back at his baseline at this time. Patient does have diffuse scarring and past pneumo. He will need to continue with aggressive pulmonary toileting as at home, including incentive spirometer and Acapella. He was instructed on this. Did have elevated troponin, likely demand ischemia. Patient is a chronic CO2 retainer and does require BiPAP, however CT confirmed pneumothorax so NO BIPAP over the weekend. Will repeat chest CT on Wednesday to reevaluate pneumo. Patient does have end-stage COPD and residual small left effusion that was previously present. Transition patient to prior oral steroids through 05/09 , then restart Pulmicort when course completed. 2. Bilateral spiculated lung masses Present greater than 2 years. No further diagnostic studies needed at this time. 3. Tobacco abuse, in remission Quit prior to last admit, denies any smoking at home when discharged. Encourage ongoing cessation. 4. PETE/stage IV very severe COPD/PAF/silicosis/systolic CHF/AICD/hypertension Complicates care, management, recovery, and prognosis. Continue home medications as indicated. Resume home inhaler regimen when discharged. Anticoagulated on Eliquis. Thank you for the opportunity to participate in this patient's care, please do not hesitate contact us with any further questions or concerns. This note was generated with [employer] dictation software. It may contain incorrect words, spelling, and punctuation that were not noted in checking the note before signing.
[2018-05-06] MEDS: Pantoprazole Sodium 20 MG Tablet PO (09:46)
[2018-05-06] MEDS: Isosorbide Mononitrate 30 MG Tablet PO (09:46)
[2018-05-06] MEDS: Gabapentin 100 MG Capsule PO (09:46)
[2018-05-06] MEDS: Memantine Hydrochloride 10 MG Tablet PO (09:46)
[2018-05-06] MEDS: Carvedilol 25 MG Tablet PO (09:46)
[2018-05-06] MEDS: Finasteride 5 MG Tablet PO (09:46)
[2018-05-06] MEDS: Furosemide 40 MG Tablet PO (09:46)
[2018-05-06] MEDS: Spironolactone 25 MG Tablet PO (09:46)
[2018-05-06] MEDS: Digoxin 250 MCG Tablet PO (09:46)
[2018-05-06] MEDS: APIXABAN 5 MG TABLET PO (09:47)
[2018-05-06] MEDS: Ferrous Sulfate 325 MG Tablet PO (09:47)
[2018-05-06] MEDS: Cyanocobalamin 500 MCG Tablet 1000 MCG PO (09:47)
--- NOTE | 2018-05-06 13:11 | CASEMGMT ---
Readmission chart review. Pt was released on 05/04 and came back 05/05 for increased SOB and pt now with small pneumothorax. See CM assessment completed by Betty REBOLLEDO CM on 05/02. This RN CM to room to speak with pt and regarding discharge plan and per pt/, he will go home with resumption of palliative care and CCN. Pt is also on home oxygen at 3 liters, has a nebulizer and bipap/cpap. Pt/ state no further concerns/needs at this time and pt states ready for discharge. Jeramie REBOLLEDO CM
--- NOTE | 2018-05-06 15:07 | PCM.DC ---
- Discharge Diagnoses Current Active Problems: Current Active and Chronic Problems (Last Reviewed 05/06/18 @ 00:17 by Ronni Sotomayor DO) Pneumothorax (Acute) Elevated troponin (Acute) You will use the following diet at home:: Cardiac - <2 grams Your food should be the consistency of: Regular Your liquids should be the consistency of: Regular/Thin Discharge Activity: Return to Normal Activity Additional Instructions: DO NOT USE CPAP/BiPAP for 1 WEEK UNLESS OTHERWISE ADVISED BY PULMONOLOGY Allergies/Adverse Reactions: Allergies aspirin Adverse Reaction (Verified 05/05/18 18:57) Upset Stomach Medications to take at Discharge Carvedilol [Coreg (Beta Virgie)] 25 mg PO BID 09/09/15 Finasteride [Proscar] 5 mg PO DAILY 09/09/15 Vit B12/Levomefolate/Vit B6/B2 [l-Methyl-Mc Tablet] 1 tab PO 1700 09/09/15 Apixaban [Eliquis] 5 mg PO BID 06/19/16 Isosorbide Mononitrate [Imdur] 30 mg PO DAILY 06/19/16 Oxygen, Home [Home Oxygen] 3 lpm NASAL DAILY PRN PRN 08/12/16 hydrALAZINE [Apresoline] 50 mg PO TID 08/12/16 Spironolactone [Aldactone] 25 mg PO DAILY 12/11/16 Lisinopril [Zestril] 20 mg PO QHS 03/19/17 Acetaminophen [Tylenol Tablet] 650 mg PO Q6H PRN PRN #0 tab 03/22/17 Ferrous Sulfate 325 mg PO DAILY@0800 04/02/17 Gabapentin [Neurontin] 100 mg PO BID 04/02/17 Omeprazole [Prilosec] 20 mg PO BID 04/02/17 memantine 5 mg tablet 28 mg PO QDAY 11/09/17 nystatin 100,000 unit/mL oral suspension 5 ml MUCOUS MEMBRANE TID #250 ml 11/17/17 ipratropium-albuterol 0.5 mg-3 mg(2.5 mg base)/3 mL nebulization soln 3 ml INHALATION Q4H PRN PRN #180 ml 11/18/17 budesonide 0.5 mg/2 mL suspension for nebulization 0.5 mg INHALATION Q6H #60 ml 11/19/17 Cyanocobalamin [Vitamin B12] 1,000 mcg PO DAILY@0800 05/02/18 Digoxin [Lanoxin] 250 mcg PO DAILY 05/02/18 Furosemide [Lasix] 40 mg PO BID@1000,1800 05/02/18 Levalbuterol HCl [Xopenex] 3 ml INHALATION Q6H PRN PRN 05/02/18 Nitroglycerin 0.4 mg SL PRN PRN 05/02/18 Potassium Chloride [K-Dur] 20 meq PO DAILY 05/02/18 Prednisone 40 mg PO DAILY 4 Days #8 tab 05/04/18 Orders to be completed after discharge: Chest PA and Lateral [RAD] Time Frame: 4 Days, Location: None Selected Primary Care Physician: Sony Allison MD [Primary Care Provider] - Please follow up with your Primary Care Physician in: 1-2 weeks Please Follow Up With: Jet Arnett MD - YOU MUST HAVE CHEST XRAY IN THE MORNING BEFORE YOUR APPOINTMENT When: 4 days Proposed Discharge Date: 05/06/18
--- NOTE | 2018-05-06 15:09 | PCM.DC.SUM ---
<Leo Londono - Last Filed: 05/06/18 15:09> Discharge Date and Diagnosis Date of Admission: 05/05/18 Date of Discharge: 05/06/18 - Primary Discharge Diagnosis Active and Suspected Problems (Last Reviewed 05/06/18 @ 00:17 by Ronni Sotomayor DO) Pneumothorax (Acute) - suspected ruptured bleb Elevated troponin (Acute) COPD exacerbation Chronic hypoxic and hypercapneic respiratory failure Continued tobacco abuse PAfib sillicosis CHF HTN ICD Ischemic cardiomyopathy PETE - Secondary Discharge Diagnosis Chronic Problems (Last Reviewed 05/06/18 @ 00:17 by Ronni Sotomayor DO) PETE (obstructive sleep apnea) (Chronic) Hypersomnia (Chronic) Runny nose (Chronic) PETE (obstructive sleep apnea) (Chronic) 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 Shortness of breath (Chronic) Hypercapnic respiratory failure, chronic (Chronic) Acute and chronic respiratory failure with hypercapnia (Chronic) Paroxysmal atrial fibrillation (Chronic) Chronic respiratory failure (Chronic) Silicosis (Chronic) History of implantable cardioverter-defibrillator (ICD) placement (Chronic) CHF (congestive heart failure) (Chronic) Hypertension (Chronic) Hospital Course and Treatment Imaging Results: RAD/Chest 1 View (Portable) IMPRESSION: Increasing interstitial thickening in the left lung possibly representing unilateral pulmonary interstitial edema in association with tiny left pleural effusion and pneumothorax. Question nodule in the right upper lobe with cavitation CT would be useful for further assessment if clinically indicated.. RAD/Chest 1 View (Portable) IMPRESSION: Small left pleural effusion. There is no evidence of pneumothorax. CT/Chest without Contrast IMPRESSION: Small left basilar pneumothorax. Bilateral apical/suprahilar mass is. Neoplasm not excluded. Follow-up recommended. Centrilobular and paraseptal emphysema. Coronary artery disease and pacer. Consults: Melquiades - pulm Operations: None Procedures: None Summary of Care Provided: Physical exam on day of discharge: General: Resting comfortably NAD Psych: A/Ox3 normal affect HEENT: PEARRLA AT NC Neck: Supple NT CV: RRR no m/t/r/g/h Resp: Lungs are severely diminished throughout all vargas, I do not appreciate any wheezing at this time. Abd: [id number] Soft NT no guarding or rigidity Ext: DP2+= no edema Skin: W/D normal turgor Lymph/Heme: No active bleeding or adenopathy Neuro: CN2-12 intact Hospital course: The patient is a 67 year old M with a history of end-stage COPD, chronic hypoxic and hypercapnic respiratory failure, CHF, ischemic cardiomyopathy, obstructive sleep apnea on CPAP, continued nicotine abuse, paroxysmal atrial fibrillation, silicosis, hypertension who presented to the emergency room 2 days after being discharged from the hospital with an acute COPD exacerbation with worsening shortness of breath. He was brought to the emergency room and a checks x-ray revealed a small left base pneumothorax. He was admitted to the hospital and pulmonology was consulted. He remained stable on his home oxygen levels. He was placed on Solu-Medrol and bronchodilators. Pulmonology came and saw the patient and felt immediate he may have ruptured a bleb. A repeat chest x-ray the following morning did not show pneumothorax. Pulmonology advised that the patient hold off on CPAP and BiPAP for 1 week given the pneumothorax. Patient and family were agreeable to discharge home with follow-up in the pulmonary clinic in 4 days. He will have a repeat chest x-ray in the morning before his pulmonary follow-up. He was advised to complete the prednisone course that he was previously does prescribed at discharge. He remained in stable condition and desired to go home. He was discharged home in stable condition. This patient was seen by Leo Londono PA-C under the supervision of Doctor Roby. [] Discharge Diet: Low fat/ Low Cholesterol, 2000 mg Sodium Diet Discharge Activity: Return to Normal Activity Home Medications: Medications to take at Discharge Carvedilol [Coreg (Beta Virgie)] 25 mg PO BID 09/09/15 Finasteride [Proscar] 5 mg PO DAILY 09/09/15 Vit B12/Levomefolate/Vit B6/B2 [l-Methyl-Mc Tablet] 1 tab PO 1700 09/09/15 Apixaban [Eliquis] 5 mg PO BID 06/19/16 Isosorbide Mononitrate [Imdur] 30 mg PO DAILY 06/19/16 Oxygen, Home [Home Oxygen] 3 lpm NASAL DAILY PRN PRN 08/12/16 hydrALAZINE [Apresoline] 50 mg PO TID 08/12/16 Spironolactone [Aldactone] 25 mg PO DAILY 12/11/16 Lisinopril [Zestril] 20 mg PO QHS 03/19/17 Acetaminophen [Tylenol Tablet] 650 mg PO Q6H PRN PRN #0 tab 03/22/17 Ferrous Sulfate 325 mg PO DAILY@0800 04/02/17 memantine 5 mg tablet 28 mg PO QDAY 11/09/17 nystatin 100,000 unit/mL oral suspension 5 ml MUCOUS MEMBRANE TID #250 ml 11/17/17 ipratropium-albuterol 0.5 mg-3 mg(2.5 mg base)/3 mL nebulization soln 3 ml INHALATION Q4H PRN PRN #180 ml 11/18/17 budesonide 0.5 mg/2 mL suspension for nebulization 0.5 mg INHALATION Q6H #60 ml 11/19/17 Cyanocobalamin [Vitamin B12] 1,000 mcg PO DAILY@0800 05/02/18 Digoxin [Lanoxin] 250 mcg PO DAILY 05/02/18 Furosemide [Lasix] 40 mg PO BID@1000,1800 05/02/18 Nitroglycerin 0.4 mg SL PRN PRN 05/02/18 Potassium Chloride [K-Dur] 20 meq PO DAILY 05/02/18 Prednisone 40 mg PO DAILY 4 Days #8 tab 05/04/18 Other Amb Orders: Chest PA and Lateral [RAD] Time Frame: 4 Days, Location: None Selected Primary Care Physician: Sony Allison MD [Primary Care Provider] - Please follow up with your Primary Care Physician in: 1-2 weeks Please Follow Up With: Jte Arnett MD - YOU MUST HAVE CHEST XRAY IN THE MORNING BEFORE YOUR APPOINTMENT When: 4 days Additional Instructions: no CPAP/BiPAP for a week. Repeat CXR prior to Pulm follow up Disposition: Home Minutes spent on discharge:: 35 Patient Condition:: Stable Medical Necessity - Tobacco Use Smoking Status: Former smoker - quit early April 2018 Tobacco Use: Cigarettes Meaningful Use Info Meaningful Use Diagnoses (Choose all that apply): None applicable <[place],[place] - Last Filed: 05/06/18 17:37> Discharge Date and Diagnosis - Secondary Discharge Diagnosis Chronic Problems (Last Reviewed 05/06/18 @ 00:17 by Ronni Sotomayor DO) PETE (obstructive sleep apnea) (Chronic) Hypersomnia (Chronic) Runny nose (Chronic) PETE (obstructive sleep apnea) (Chronic) 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 Shortness of breath (Chronic) Hypercapnic respiratory failure, chronic (Chronic) Acute and chronic respiratory failure with hypercapnia (Chronic) Paroxysmal atrial fibrillation (Chronic) Chronic respiratory failure (Chronic) Silicosis (Chronic) History of implantable cardioverter-defibrillator (ICD) placement (Chronic) CHF (congestive heart failure) (Chronic) Hypertension (Chronic) Hospital Course and Treatment Summary of Care Provided: The patient is a 67 year old M [] Code Visit Inpatient E&M: 70014 Disch Hosp
--- NOTE | 2018-05-06 15:17 | DS.PCM_ITS ---
<Leo Londono - Last Filed: 05/06/18 15:09> Discharge Date and Diagnosis Date of Admission: 05/05/18 Date of Discharge: 05/06/18 - Primary Discharge Diagnosis Active and Suspected Problems (Last Reviewed 05/06/18 @ 00:17 by Ronni Sotomayor DO) Pneumothorax (Acute) - suspected ruptured bleb Elevated troponin (Acute) COPD exacerbation Chronic hypoxic and hypercapneic respiratory failure Continued tobacco abuse PAfib sillicosis CHF HTN ICD Ischemic cardiomyopathy PETE - Secondary Discharge Diagnosis Chronic Problems (Last Reviewed 05/06/18 @ 00:17 by Ronni Sotomayor DO) PETE (obstructive sleep apnea) (Chronic) Hypersomnia (Chronic) Runny nose (Chronic) PETE (obstructive sleep apnea) (Chronic) 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 Shortness of breath (Chronic) Hypercapnic respiratory failure, chronic (Chronic) Acute and chronic respiratory failure with hypercapnia (Chronic) Paroxysmal atrial fibrillation (Chronic) Chronic respiratory failure (Chronic) Silicosis (Chronic) History of implantable cardioverter-defibrillator (ICD) placement (Chronic) CHF (congestive heart failure) (Chronic) Hypertension (Chronic) Hospital Course and Treatment Imaging Results: RAD/Chest 1 View (Portable) IMPRESSION: Increasing interstitial thickening in the left lung possibly representing unilateral pulmonary interstitial edema in association with tiny left pleural effusion and pneumothorax. Question nodule in the right upper lobe with cavitation CT would be useful for further assessment if clinically indicated.. RAD/Chest 1 View (Portable) IMPRESSION: Small left pleural effusion. There is no evidence of pneumothorax. CT/Chest without Contrast IMPRESSION: Small left basilar pneumothorax. Bilateral apical/suprahilar mass is. Neoplasm not excluded. Follow-up recommended. Centrilobular and paraseptal emphysema. Coronary artery disease and pacer. Consults: Melquiades - pulm Operations: None Procedures: None Summary of Care Provided: Physical exam on day of discharge: General: Resting comfortably NAD Psych: A/Ox3 normal affect HEENT: PEARRLA AT NC Neck: Supple NT CV: RRR no m/t/r/g/h Resp: Lungs are severely diminished throughout all vargas, I do not appreciate any wheezing at this time. Abd: [id number] Soft NT no guarding or rigidity Ext: DP2+= no edema Skin: W/D normal turgor Lymph/Heme: No active bleeding or adenopathy Neuro: CN2-12 intact Hospital course: The patient is a 67 year old M with a history of end-stage COPD, chronic hypoxic and hypercapnic respiratory failure, CHF, ischemic cardiomyopathy, obstructive sleep apnea on CPAP, continued nicotine abuse, paroxysmal atrial fibrillation, silicosis, hypertension who presented to the emergency room 2 days after being discharged from the hospital with an acute COPD exacerbation with worsening shortness of breath. He was brought to the emergency room and a checks x-ray revealed a small left base pneumothorax. He was admitted to the hospital and pulmonology was consulted. He remained stable on his home oxygen levels. He was placed on Solu-Medrol and bronchodilators. Pulmonology came and saw the patient and felt immediate he may have ruptured a bleb. A repeat chest x-ray the following morning did not show pneumothorax. Pulmonology advised that the patient hold off on CPAP and BiPAP for 1 week given the pneumothorax. Patient and family were agreeable to discharge home with follow- up in the pulmonary clinic in 4 days. He will have a repeat chest x-ray in the morning before his pulmonary follow-up. He was advised to complete the prednisone course that he was previously does prescribed at discharge. He remained in stable condition and desired to go home. He was discharged home in stable condition. This patient was seen by Leo Londono PA-C under the supervision of Doctor Roby. [] Discharge Diet: Low fat/ Low Cholesterol, 2000 mg Sodium Diet Discharge Activity: Return to Normal Activity Home Medications: Medications to take at Discharge Carvedilol [Coreg (Beta Virgie)] 25 mg PO BID 09/09/15 Finasteride [Proscar] 5 mg PO DAILY 09/09/15 Vit B12/Levomefolate/Vit B6/B2 [l-Methyl-Mc Tablet] 1 tab PO 1700 09/09/15 Apixaban [Eliquis] 5 mg PO BID 06/19/16 Isosorbide Mononitrate [Imdur] 30 mg PO DAILY 06/19/16 Oxygen, Home [Home Oxygen] 3 lpm NASAL DAILY PRN PRN 08/12/16 hydrALAZINE [Apresoline] 50 mg PO TID 08/12/16 Spironolactone [Aldactone] 25 mg PO DAILY 12/11/16 Lisinopril [Zestril] 20 mg PO QHS 03/19/17 Acetaminophen [Tylenol Tablet] 650 mg PO Q6H PRN PRN #0 tab 03/22/17 Ferrous Sulfate 325 mg PO DAILY@0800 04/02/17 memantine 5 mg tablet 28 mg PO QDAY 11/09/17 nystatin 100,000 unit/mL oral suspension 5 ml MUCOUS MEMBRANE TID #250 ml ipratropium-albuterol 0.5 mg-3 mg(2.5 mg base)/3 mL nebulization soln 3 ml INHALATION Q4H PRN PRN #180 ml 11/18/17 budesonide 0.5 mg/2 mL suspension for nebulization 0.5 mg INHALATION Q6H #60 ml 11/19/17 Cyanocobalamin [Vitamin B12] 1,000 mcg PO DAILY@0800 05/02/18 Digoxin [Lanoxin] 250 mcg PO DAILY 05/02/18 Furosemide [Lasix] 40 mg PO BID@1000,1800 05/02/18 Nitroglycerin 0.4 mg SL PRN PRN 05/02/18 Potassium Chloride [K-Dur] 20 meq PO DAILY 05/02/18 Prednisone 40 mg PO DAILY 4 Days #8 tab 05/04/18 Other Amb Orders: Chest PA and Lateral [RAD] Time Frame: 4 Days, Location: None Selected Primary Care Physician: Sony Allison MD [Primary Care Provider] - Please follow up with your Primary Care Physician in: 1-2 weeks Please Follow Up With: Jet Arnett MD - YOU MUST HAVE CHEST XRAY IN THE MORNING BEFORE YOUR APPOINTMENT When: 4 days Additional Instructions: no CPAP/BiPAP for a week. Repeat CXR prior to Pulm follow up Disposition: Home Minutes spent on discharge:: 35 Patient Condition:: Stable Medical Necessity - Tobacco Use Smoking Status: Former smoker - quit early April 2018 Tobacco Use: Cigarettes Meaningful Use Info Meaningful Use Diagnoses (Choose all that apply): None applicable <[place] - Last Filed: 05/06/18 17:37> Discharge Date and Diagnosis - Secondary Discharge Diagnosis Chronic Problems (Last Reviewed 05/06/18 @ 00:17 by Ronni Sotomayor DO) PETE (obstructive sleep apnea) (Chronic) Hypersomnia (Chronic) Runny nose (Chronic) PETE (obstructive sleep apnea) (Chronic) 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
== END 2018-05-06 16:05 | disposition home or self-care (01) | DRG 199 ==
LOC: ED 19:40 → PCU 05-06 00:29
PROVIDERS: Emergency Provider Emergency Medicine; Family Provider Family Medicine; PCP Family Medicine; Visit Provider Internal Medicine
DX: J93.9 Pneumothorax, unspecified (principal); J96.22 Acute and chronic respiratory failure with hypercapnia; I50.22 Chronic systolic (congestive) heart failure; J44.1 Chronic obstructive pulmonary disease with (acute) exacerbation; Z99.81 Dependence on supplemental oxygen; Z66 Do not resuscitate; I11.0 Hypertensive heart disease with heart failure; J62.8 Pneumoconiosis due to other dust containing silica; G47.33 Obstructive sleep apnea (adult) (pediatric); I48.0 Paroxysmal atrial fibrillation; I25.5 Ischemic cardiomyopathy; R79.89 Other specified abnormal findings of blood chemistry; Z72.0 Tobacco use; Z79.01 Long term (current) use of anticoagulants; Z95.810 Presence of automatic (implantable) cardiac defibrillator
CPT/HCPCS: 36415; 71045; 71250; 80048; 84484; 85025; 93005; 94640; 94667; 94668; 97161; 99283; A4216

== ENCOUNTER → 2018-05-10 10:34 | Outpatient (CLI) | payer MEDICARE, OTHER, SELFPAY ==
--- NOTE | 2018-05-10 10:35 | RAD_ITS ---
STUDY: X-RAY CHEST REASON FOR EXAM: Male, 67 years old. Shortness of breath. TECHNIQUE: PA and lateral views of the chest. COMPARISON: Comparison is made with prior study dated May 06, 2018. FINDINGS: Hyperinflation. Persistent infiltrates in the upper lobes. There is mild improvement. Blunting of left costophrenic angle with left basilar atelectasis and/or scarring. Normal size heart. A left-sided dual-chamber pacemaker is seen. Normal mediastinum and yee. Normal visualized pulmonary arteries. There is atherosclerotic calcification of the aortic arch with tortuosity. Normal visualized thoracic spine. Normal visualized ribs, clavicles, and shoulders. There is no demonstrated abnormality of the visualized soft tissue structures of the upper abdomen. RAD/Chest PA and Lateral IMPRESSION: Persistent bilateral upper lobe infiltrates although there has been mild improvement as compared to prior study. Blunting of left costophrenic angle with underlying atelectasis and/or scarring. Electronically Signed: Ritesh Bunch MD at 16:02 EDT Tel [phone], Service support ,
== END ==
PROVIDERS: Family Provider Family Medicine; PCP Family Medicine; Visit Provider Physician Assistant
DX: R06.02 Shortness of breath (principal); R06.00 Dyspnea, unspecified
CPT/HCPCS: 71046

== ENCOUNTER 2018-05-12 10:06 | Emergency (ER) | payer MEDICARE, OTHER, SELFPAY ==
[2018-05-12] VITALS (8 sets, daily range): BP systolic 92–119; BP diastolic 64–85; PULSE 51–104; RESP 13–22; TEMP 36.9; O2SAT 97–100; BMI 24.4
--- NOTE | 2018-05-12 10:22 | CT_ITS ---
STUDY: CTA CHEST REASON FOR EXAM: Male, 67 years old. Chest pain. Worsening back pain and shortness of breath. Recent hospitalization for pneumothorax. RADIATION DOSAGE (If Supplied By Facility): CTDIvol = ( 9.39 ) mGy, DLP = ( 236.99 ) mGycm TECHNIQUE: The examination was performed with the intravenous administration of 100 ml of Isovue 370 contrast material. Post-processing of the angiographic images was performed, with multiplanar reformation and 3D reconstruction. Individualized dose optimization techniques were used for this CT. COMPARISON: Comparison is made with prior study dated June 18, 2016. FINDINGS: Normal enhancement of the main pulmonary artery and right and left pulmonary arteries. Normal enhancement of the bilateral peripheral pulmonary arteries. There is no demonstrated pulmonary embolism. Normal thoracic aorta and visualized great vessels. There is no demonstrated aortic dissection. There are calcifications of the coronary arteries. Normal mediastinum. Normal hilar regions. Normal visualized trachea and bronchi. Hyperinflation. Diffuse emphysematous changes with bullous formation worse in the upper lobes. Spiculated right upper lobe mass adjacent to the major fissure. This is essentially unchanged. Stable nodular densities in the left upper lobe. Stable left pleural thickening on the left side. Normal chest wall structures. There are degenerative changes of thoracic spine. Normal visualized upper abdomen. CT/CTA Chest W/WO Contrast IMPRESSION: There is no evidence of pneumothorax at this time. Hyperinflation with the evidence of the emphysematous changes and bullous formation. Stable bilateral nodular densities. Stable left-sided pleural thickening. Electronically Signed: Ritesh Bunch MD at 12:22 EDT Tel [phone], Service support ,
--- NOTE | 2018-05-12 10:26 | RAD_ITS ---
STUDY: X-RAY CHEST REASON FOR EXAM: Male, 67 years old. Chest pain. History of silicosis. TECHNIQUE: Single AP portable view of the chest. COMPARISON: Comparison is made with prior study dated May 10, 2018. FINDINGS: EKG electrode are seen. Stable nodular infiltrates in the right upper lobe as well as in the left apex. Stable pleural parenchymal changes at the left lung base. There is no evidence of pneumothorax on this examination. Normal size heart. A left-sided dual-chamber pacemaker is seen. Normal mediastinum and yee. Normal visualized pulmonary arteries. There is atherosclerotic calcification of the aortic arch with tortuosity. Normal visualized thoracic spine. Normal visualized ribs, clavicles, and shoulders. There is no demonstrated abnormality of the visualized soft tissue structures of the upper abdomen. RAD/Chest 1 View (Portable) IMPRESSION: Stable nodular infiltrates in both upper lobes as well as stable left pleural-parenchymal changes. There is no evidence of pneumothorax. Electronically Signed: Ritesh Bunch MD at 12:23 EDT Tel [phone], Service support ,
--- NOTE | 2018-05-12 10:26 | EKG12_ITS ---
Test Reason : SOB Blood Pressure : / mmHG Vent. Rate : 106 BPM Atrial Rate : 106 BPM P-R Int : 156 ms QRS Dur : 108 ms QT Int : 334 ms P-R-T Axes : 052 -37 091 degrees QTc Int : 443 ms Sinus tachycardia with Premature ventricular complexes or Fusion complexes Left axis deviation Nonspecific ST and T wave abnormality Abnormal ECG Confirmed by SAM NEWTON ([id number]), editor city JOANNE BEE ([id number]) on 05/16/2018 2:46:38 PM Referred By: Leo Londono Confirmed By:SAM NEWTON
--- NOTE | 2018-05-12 10:28 | ED.VISSUMM ---
- ER Visit Summary Date of Service: 05/12/18 Chief Complaint: [] Left posterior back chest pain for about 2 weeks History of Present Illness: The patient is a 67 M [] history of severe COPD home O2 home BiPAP, cardiac defibrillator pacemaker rate of CHF and heart disease, was admitted to the hospital for chest pain found to have a left-sided pneumothorax is very small chronic spiculated masses upper lungs no major change on CT with pleural effusions or small he basically indicates per he has had persistent pain to the left posterior back chest since about May 01 when he was admitted to symptoms of not improved they seem worse today after the shower his symptoms are worse when he bends forward moves his left arm his cardiopulmonary status is stable he indicates his breathing is actually improved he has had no anginal type chest pain, no leg edema and history of DVT PE NH, no trauma no fever no cough he is eating and drinking well normal bowel bladder habits normal urinary output Physical Examination: [] His vital signs are within normal range she is chronic on his 3 L home O2 he speaking in his normal phrases he is in no distress his HEENT exams unremarkable the lungs are diminished bilaterally with scattered wheezing heart tones sound regular the abdomen soft nontender upper lower extremities unremarkable he is awake moving all 4, his back pain/area of pain is actually the left parascapular area infrascapular region this area to palpation shows mild pain no lesions no skin rashes the symptoms are worse when he bends forward or moves his left arm his upper lower extremity exams are again unremarkable he has about 2+ edema to lower legs that is not new neurologically is normal per the Test Results: [] Emergency Department Course and Treatment: [] Screening labs CT EKG and management the patient's lab studies EKG CTA of chest are all generally unremarkable nothing acute but no pneumothorax, no PE no abnormalities of the chest wall, some chronic changes that were present before please see all those reports I spoke with Dr. Marroquin occupational therapist assistants for Dr. Arnett given all the above he agrees the patient be discharged home to follow-up in the office tomorrow in the rapid follow-up clinic back to reassess the patient he is resting comfortably he feels better discussed all the above with him and the they are comfortable with discharge home to follow-up with a rapid clinic and stay on the chronic meds and return for change in symptoms he is feeling better Troponin is chronically elevated, and his potassium is 5.9 he is noted to be on potassium supplementations and have asked him to hold those until he follows up with his physicians Treatment Plan: [] Disposition: [] Stable home Impression: [] left parascapular pain etiology unclear weeks, history of COPD history of hyperkalemia on potassium supplements This note was generated with [employer] dictation software. It may contain incorrect words, spelling, and punctuation that were not noted in review of the chart prior to signing ED Disposition - Plan for ED Patient: Chief Complaint: Back Instructions: ED Spasm Back No Trauma Referrals: Jonathon Marroquin DO [STAFF PHYSICIAN] - Sony Allison MD [Primary Care Provider] -
[2018-05-12 10:49] LABS: Absolute Lymphocyte Count 0.73 X10^3/ul (0.83-4.51); Absolute Neutrophil Count 3.1 X10^3/uL (2.0-7.7); Eosinophil# 0.01 X10^3/uL; Eosinophils% 0.2 % (0-5); Hematocrit 33.2 % (40-54); Hemoglobin 9.6 g/dl (13.0-16.5); Lymphocyte # 0.73 X10^3/ul (4.0); Lymphocyte % 16.8 % (19-41); Mean Corp Hgb Conc 28.9 g/gl (32-36); Mean Corpuscular Hgb 27.4 pg (27.0-32.0); Mean Corpuscular Volume 94.9 fL (80-94); Mean Platelet Vol. 9.5 fl (6.2-12.0); Monocyte# 0.48 X10^3/uL; Neutrophil # 3.11 X10^3/uL (2.7-7.7); Neutrophil % 71.5 % (47-70); POSITIVE COUNT NO; POSITIVE DIFFERENTIAL NO; POSITIVE MORPHOLOGY NO; Platelet Count 143 K/mm3 (150-450); RBC Distribution Width CV 14.6 % (11.6-14.6); RBC Distribution Width SD 46.8 fl (35.1-43.9); White Blood Count 4.4 K/mm3 (4.4-11.0)
[2018-05-12] MEDS: Ondansetron 4 MG/2 ML Vial IV (10:51)
[2018-05-12] MEDS: morphine 8 MG/ML Syringe IV (10:51)
[2018-05-12 11:05] LABS: Anion Gap -2 (5-15); BUN 28 mg/dL (7-18); Calcium,Total 8.8 mg/dL (8.5-10.1); Chloride 100 mmol/L (98-107); Creatinine, Serum 1.22 mg/dL (0.70-1.30); EST Glomerular Filtration Rate 62 mL/min (>60); Est Glom Filt Rate - Afr Amer 76 mL/min (>60); Estimated Creatinine Clearance 60.86 ml/min; Glucose 94 mg/dL (74-106); Potassium 5.9 mmol/L (3.5-5.1); Sodium Level 142 mmol/L (136-145)
[2018-05-12 11:19] LABS: BNP,B-Type NATRIURETIC PEPTIDE 56.1 pg/mL (0-100)
[2018-05-12] MEDS: Ipratropium/Albuterol Sulfate 3 ML AMPUL.NEB INHALATION (11:23)
[2018-05-12] MEDS: Budesonide Respules 0.5 MG/2 ML AMPUL.NEB. INHALATION (11:31)
--- NOTE | 2018-05-12 13:49 | ED.DEP ---
ED Disposition - Plan for ED Patient: Chief Complaint: Back Instructions: ED Spasm Back No Trauma Referrals: Sony Allison MD [Primary Care Provider] - Jonathon Marroquin DO [STAFF PHYSICIAN] -
--- NOTE | 2018-05-12 13:51 | ED.DEP ---
ED Disposition - Plan for ED Patient: Chief Complaint: Back Instructions: ED Spasm Back No Trauma Referrals: Jonathon Marroquin DO [STAFF PHYSICIAN] - Sony Allison MD [Primary Care Provider] - Additional Instructions: Please stop the potassium pills you are taking at home until you follow-up with your doctors
== END 2018-05-12 14:17 | disposition home or self-care (01) ==
LOC: ED 11:10
PROVIDERS: Emergency Provider Emergency Medicine; Family Provider Family Medicine; PCP Family Medicine
DX: M54.9 Dorsalgia, unspecified (principal); J44.9 Chronic obstructive pulmonary disease, unspecified; E87.6 Hypokalemia; I50.9 Heart failure, unspecified; Z99.81 Dependence on supplemental oxygen; Z79.02 Long term (current) use of antithrombotics/antiplatelets; Z79.899 Other long term (current) drug therapy
CPT/HCPCS: 71045; 71275; 80048; 83880; 84484; 85025; 93005; 94640; 96374; 96375; 99284; J7040; J7050; Q9967; A4216; J2405

== ENCOUNTER → 2018-06-22 11:25 | Outpatient (CLI) | payer MEDICARE, OTHER, SELFPAY ==
--- NOTE | 2018-06-22 11:40 | RAD_ITS ---
STUDY: X-RAY - THORACIC SPINE REASON FOR EXAM: Male, 68 years old. Mid back pain, no known injury TECHNIQUE: 4 view(s) of the thoracic spine were obtained. COMPARISON: None. FINDINGS: Normal kyphosis of the thoracic spine. There is no substantial scoliosis. There is demineralization of the thoracic spine. Normal disc space heights. There is a moderately severe compression deformity of T7 and mild compression deformity of T6. There has been further compression deformity of T7 from prior CTA study of 05/12/2018. The T6 compression deformity represents a new interval finding. The soft tissue structures are unremarkable. RAD/Thoracic Spine 2 Views IMPRESSION: 1. Moderately severe compression deformity of T7, increased in severity from prior CT of the chest dated 05/12/2018. 2. New mild compression deformity of T6. 3. The bones are osteopenic. 4. If clinically indicated, nuclear bone scan may be helpful for further evaluation. Electronically Signed: Desmond Ty MD at 17:13 EDT , Service support ,
== END ==
PROVIDERS: Family Provider Family Medicine; PCP Family Medicine; Visit Provider Anesthesiology Pain Medicine
DX: M54.6 Pain in thoracic spine (principal)
CPT/HCPCS: 72070

== ENCOUNTER 2018-07-01 18:26 | Emergency (ER) | payer MEDICARE, OTHER, SELFPAY ==
[2018-07-01 18:28] VITALS: BP 108/70; PULSE 87; RESP 18; TEMP 36.3; O2SAT 98; BMI 23.4
--- NOTE | 2018-07-01 18:55 | ED.VISSUMM ---
- ER Visit Summary Date of Service: 07/01/18 Chief Complaint: Leg swelling History of Present Illness: The patient is a 68 M with a history of CHF, COPD, hypertension, paroxysmal A. fib, sleep apnea. Patient does wear 3 L of oxygen at home. He complains of a several week history of lower extremity edema. He states symptoms seem to get worse today. He does describe some aching in his legs. He does report shortness of breath with exertion similar to his prior CHF exacerbations, but does not have shortness of breath at rest. He denies chest pain. Patient believes his credit assessment analyst is Jarett Driscoll at the [facility]. Physical Examination: Vital signs are unremarkable. Pulse ox is 98% on 3 L. Head and neck examination unremarkable. Heart is regular rate and rhythm. Lung sounds are mildly diminished at the bases. Abdomen is soft, nontender, nondistended. Lower external examination reveals 2+ edema that is symmetric. He has strong distal pulses. No overlying skin changes. Test Results: EKG is sinus at 101. He has lateral ST depression and T inversion. This is more pronounced when compared to prior study of 05/12/2018, but does have a very similar appearance to study done on 05/05/2018. CBC reveals normal white count hemoglobin 9.5. Platelet count is 110,000. Chemistry studies significant for bicarb of greater than 45, which is consistent with his prior labs as well. BUN is 41. Troponin is 0.126. For the last 18 months patient has had a chronically elevated troponin in this range. BNP is mildly elevated at 170. Portable chest x-ray read by radiology is COPD and chronic interstitial lung disease. Bipolar pacemaker is in place. Venous ultrasound of the legs reveal no evidence of DVT. There is evidence of possible superficial clot in the lesser saphenous. Emergency Department Course and Treatment: Patient remained stable throughout his ED stay. Patient was given 40 mg of IV Lasix. I did discuss test results with him. I believe his chest x-ray looks slightly wet. Patient's Lasix dose at home will be altered for the next 3 days to try to remove extra fluid. I did review medication with him and he is currently on Eliquis. Patient will follow with his credit assessment analyst, Dr. Jarett Driscoll. Patient is encouraged to return for any worsening symptoms. Treatment Plan: [] Disposition: Discharge Impression: 1. Mild CHF exacerbation 2. Chronically elevated troponin This note was generated with [employer] dictation software. It may contain incorrect words, spelling, and punctuation that were not noted in review of the chart prior to signing ED Disposition - Plan for ED Patient: Disposition: Home or Assisted Living Chief Complaint: Edema Instructions: ED CHF General Referrals: Jarett Driscoll MD [STAFF PHYSICIAN] - 1 Week Additional Instructions: For the next 3 days only: Take 2 tabs Lasix in the morning (80mg) and 1 tab Lasix in the evening (40mg).
--- NOTE | 2018-07-01 19:07 | US_ITS ---
STUDY: VENOUS DOPPLER ULTRASOUND - BILATERAL LOWER EXTREMITIES REASON FOR EXAM: Male, 68 years old. Lower leg swelling TECHNIQUE: Ultrasound evaluation of the deep vein system to include bazzi-scale imaging and compression was performed. Baziz-scale imaging and Doppler sonographic evaluation, including duplex spectral analysis and qualitative color flow sonography, was performed. COMPARISON: None. FINDINGS: RIGHT LEG partial compression and internal echoes superficial lower lesser saphenous vein. Common Femoral Vein: Normal compression, spontaneity and augmentation. Normal color Doppler. Common Femoral Vein/Greater Saphenous Junction: Normal compression, spontaneity and augmentation. Normal color Doppler. Deep Femoral Vein: Normal compression, spontaneity and augmentation. Normal color Doppler. Femoral Proximal: Normal compression, spontaneity and augmentation. Normal color Doppler. Femoral Middle: Normal compression, spontaneity and augmentation. Normal color Doppler. Femoral Distal: Normal compression, spontaneity and augmentation. Normal color Doppler. Popliteal Vein: Normal compression, spontaneity and augmentation. Normal color Doppler. Posterior Tibial Vein: Normal compression, spontaneity and augmentation. Normal color Doppler. Peroneal Vein: Normal compression, spontaneity and augmentation. Normal color Doppler. LEFT LEG partial compression and internal echoes superficial lower lesser saphenous vein. Common Femoral Vein: Normal compression, spontaneity and augmentation. Normal color Doppler. Common Femoral Vein/Greater Saphenous Junction: Normal compression, spontaneity and augmentation. Normal color Doppler. Deep Femoral Vein: Normal compression, spontaneity and augmentation. Normal color Doppler. Femoral Proximal: Normal compression, spontaneity and augmentation. Normal color Doppler. Femoral Middle: Normal compression, spontaneity and augmentation. Normal color Doppler. Femoral Distal: Normal compression, spontaneity and augmentation. Normal color Doppler. Popliteal Vein: Normal compression, spontaneity and augmentation. Normal color Doppler. Posterior Tibial Vein: Normal compression, spontaneity and augmentation. Normal color Doppler. Peroneal Vein: Normal compression, spontaneity and augmentation. Normal color Doppler. US/Venous Duplex Imag/Aaron Extrem IMPRESSION: Bilateral nonocclusive thrombus lesser saphenous veins but no deep venous thrombosis. Electronically Signed: Lele Bearden MD at 20:56 EDT , Service support ,
[2018-07-01 19:22] LABS: Absolute Lymphocyte Count 0.39 X10^3/ul (0.83-4.51); Absolute Neutrophil Count 5.2 X10^3/uL (2.0-7.7); Hematocrit 34.1 % (40-54); Hemoglobin 9.5 g/dl (13.0-16.5); Lymphocyte # 0.39 X10^3/ul (4.0); Lymphocyte % 6.7 % (19-41); Mean Corp Hgb Conc 27.9 g/gl (32-36); Mean Corpuscular Hgb 26.8 pg (27.0-32.0); Mean Corpuscular Volume 96.3 fL (80-94); Mean Platelet Vol. 9.4 fl (6.2-12.0); Monocyte# 0.18 X10^3/uL; Monocyte% 3.1 % (0-10); Neutrophil # 5.22 X10^3/uL (2.7-7.7); Platelet Count 110 K/mm3 (150-450); RBC Distribution Width CV 14.7 % (11.6-14.6); RBC Distribution Width SD 51.1 fl (35.1-43.9); Red Blood Count 3.54 M/mm3 (4.6-6.2); White Blood Count 5.8 K/mm3 (4.4-11.0)
[2018-07-01 19:24] LABS: Differential Indicated SCAN CRITERIA MET; POSITIVE COUNT NO; POSITIVE DIFFERENTIAL YES; POSITIVE MORPHOLOGY NO
[2018-07-01 19:40] LABS: BUN 41 mg/dL (7-18); BUN/Creat Ratio 31.8 RATIO (10-20); Calcium,Total 8.9 mg/dL (8.5-10.1); Chloride 99 mmol/L (98-107); Creatinine, Serum 1.29 mg/dL (0.70-1.30); EST Glomerular Filtration Rate 59 mL/min (>60); Est Glom Filt Rate - Afr Amer 71 mL/min (>60); Estimated Creatinine Clearance 56.75 ml/min; Glucose 81 mg/dL (74-106); Potassium 4.9 mmol/L (3.5-5.1); Sodium Level 143 mmol/L (136-145)
[2018-07-01 19:43] LABS: Carbon Dioxide > 45.0 mmol/L (21.0-32.0)
[2018-07-01 19:53] LABS: Platelet Estimate SLT DEC (ADEQ)
[2018-07-01 19:54] LABS: Anisocytosis RARE; Hypochromasia 1+; Macrocytosis RARE; Ovalocyte RARE
[2018-07-01 20:33] VITALS: BP 120/77; PULSE 109; RESP 34
[2018-07-01 21:00] LABS: BNP,B-Type NATRIURETIC PEPTIDE 170.9 pg/mL (0-100)
--- NOTE | 2018-07-01 21:24 | RAD_ITS ---
STUDY: X-RAY CHEST REASON FOR EXAM: Male, 68 years old. Shortness of breath TECHNIQUE: Single frontal view of the chest. COMPARISON: May 12, 2018 FINDINGS: Bipolar pacer on the left unchanged. Patchy bilateral pleural-parenchymal infiltrates appear unchanged. Blunting of the costophrenic angle on the left. The lungs are hyperaerated. Normal size heart. Normal mediastinum and yee. Normal visualized pulmonary arteries. Normal visualized aortic arch and descending thoracic aorta. Normal visualized thoracic spine. Normal visualized ribs, clavicles, and shoulders. There is no demonstrated abnormality of the visualized soft tissue structures of the upper abdomen. RAD/Chest 1 View (Portable) IMPRESSION: COPD and interstitial lung disease unchanged. Bipolar pacer. Electronically Signed: Lele Bearden MD at 22:33 EDT , Service support ,
[2018-07-01] MEDS: Furosemide 40 MG/4 ML Vial IV (21:29)
[2018-07-01 21:30] VITALS: BP 118/72; PULSE 109; RESP 23; O2SAT 100
--- NOTE | 2018-07-01 21:55 | ED.DEP ---
ED Disposition - Plan for ED Patient: Disposition: Home or Assisted Living Chief Complaint: Edema Instructions: ED CHF General Referrals: Jarett Driscoll MD [STAFF PHYSICIAN] - 1 Week Additional Instructions: For the next 3 days only: Take 2 tabs Lasix in the morning (80mg) and 1 tab Lasix in the evening (40mg).
[2018-07-01 21:59] VITALS: BP 116/77; PULSE 102; RESP 28
== END 2018-07-01 22:00 | disposition home or self-care (01) ==
PROVIDERS: Emergency Provider Emergency Medicine; Family Provider Family Medicine; PCP Family Medicine
DX: I11.0 Hypertensive heart disease with heart failure (principal); I50.9 Heart failure, unspecified; R79.89 Other specified abnormal findings of blood chemistry; M54.9 Dorsalgia, unspecified; J44.9 Chronic obstructive pulmonary disease, unspecified; I48.0 Paroxysmal atrial fibrillation; G47.33 Obstructive sleep apnea (adult) (pediatric); Z99.81 Dependence on supplemental oxygen; Z87.891 Personal history of nicotine dependence; Z79.02 Long term (current) use of antithrombotics/antiplatelets; Z79.899 Other long term (current) drug therapy
CPT/HCPCS: 71045; 80048; 83880; 84484; 85025; 93005; 93970; 96374; 97110; 99284; A4216; J1940

== ENCOUNTER 2018-07-27 11:00 | Outpatient (RCR) | payer MEDICARE, OTHER, SELFPAY ==
--- NOTE | 2018-06-29 12:00 | HP.PTEVAL_ITS ---
Patient's Visit Information JOYCELYN BUTLER is a 68 year old M referred to Physical Therapy by Lamar Weiss with a diagnosis of BACK PAIN. Date of Evaluation: 06/29/18 Physical Therapist: [facility], - Visit Plan Frequency: 2x /Week Duration: 4 Weeks Plan: PRECAUTIONS: PACEMAKER /DIFFIBRILATOR. W/C LEVEL MIN WALKER AT HOME,3L02 CONTS,H/O LUMBAR FUSION/CERVICAL FUSION. VERY DECONDITIONED. GRADE SLOW PROGRESSION STRENGTHENING BLE,POSTURAL EX'S,CORE EX'S KARIS - Subjective Subjective: This 68 y/o male presents to physical therapy with back pain since FEBRUARY. Patient developed lumba pain symmtrical no radicular symptoms or etiology of pain . Symptoms worse walking short distances ,inactivity. Patient has 3 L02 continues. Patient limited with walking due COPD/CHF.PRECAUTION- PACEMAKER/DIFFIBRILATOR. Patient has h/o lumbar fusion x2 with foot drop , cervical fusion,left TKR. .Symtoms better with nothing. Seen DR Puentes tried 4 injections in lumbar didnt help. Patient sleeping okay. Denies parathesia/ tingling.Patient was hospitalized had pneumothorax . Patient has w/c at home , fww. Stays in bed majority of time. Bowel/bladder good. Patient condition impairs QOL and function,. Patient fww at home. Unable to stand less than a min walks 20 feet increase SOB and pain. SOCIAL: - Pain Bilateral Back Pain Intensity (Out of 10): 7 Pain Intensity Range: 10 - Objective POSTURE: rounded shoulders head foward ,posterior pelic tilt. NEURO: denies parathesia/tingling,reflexes L3-4,L4-5,L5-S1 1/3. GAIT: ambulated 10 feet shuffle steps unsteadt. BALANCE: FAIR dynamic. MMT: ankle DF 3+/5,PF 3/5,quads /hams 4-/5,hip flexion 3+/5. LUMBAR ROM: flexion mod loss,extension severe loss ,. FLEXABLITY: hams mod loss. CONDITION: very poor - Special Tests L/S Slump test left side: Negative L/S Slump test right side: Negative L/S Left Straight Leg Raise: Negative L/S Right Straight Leg Raise: Negative - Goals Goal 1:: Independant with HEP Goal Time Frame: 4-6 Weeks Goal 2:: Patient increase strength BLE 1/2 grade to improve function. Goal Time Frame: 4-6 Weeks Goal 3:: Patient decrease lumbar pain by 40% or greater to improve function. Goal Time Frame: 4-6 Weeks Goal 4:: Patient to ambulate 20-30 feet with less pain with 02 Goal Time Frame: 4-6 Weeks Goal 5:: Patient improve functional endurance for activity to fair- Goal Time Frame: 4-6 Weeks Goal 6:: Patient be more active at home to improve QOL Goal Time Frame: 4-6 Weeks - Rehabilitation Potential Physical Therapy Diagnosis: This patient has multiple complexity issues with back pain with comorbities with lumbar fusion x2,cervical fusion,left TKR , pacemaker/diffibralator,w/c level min walks no device ,bed majority of day , poor endurance on 3L02 thus benifit from skilled PT Rehabilitation Potential: Fair - Anticipated Interventions Patient/Client Instruction: Educate patient on: Condition, Plan of Care For the Purpose of:: To decrease pain, To increase ROM, To improve muscle performance and motor function, To improve ability to perform ADL's, To increase tolerance to activity/condition/position, To improve performance and independence with ADL's, To decrease level of supervision to perform tasks, To improve ability of physical actions for home/community/work/leisure, To improve gait and locomotor functions, To increase flexibility/ROM, To improve endurance , To improve balance, To improve safety with gait, To assume or resume ADL's, To improve health and function, To improve ability to perform tasks related to life management Therapeutic Exercise to Include: Strength training, Endurance training, Balance training, Postural training, Flexibilty training, Dynamic Lumbar Stabilization Comment: GRADED SLOW For the Purpose of:: To decrease pain, To increase ROM, To improve muscle performance and motor function, To increase tolerance to activity/condition/ position, To improve performance and independence with ADL's, To improve ability of physical actions for home/community/work/leisure, To improve gait and locomotor functions, To improve health of tissue, To decrease soft tissue restriction, To increase flexibility/ROM, To improve endurance, To improve balance, To improve safety with gait, To assume or resume ADL's, To improve ability to perform tasks related to life management Thank you for the opportunity to evaluate your patient. For Medicare and Medicare HMO plans, please review the plan of care and approve it. It will need to be FAXED BACK to us at [phone] for Medicare purposes. Please let me know if there are questions or concerns regarding this plan of care. Physician Signature: Date:
--- NOTE | 2018-07-27 11:30 | HP.PTDCSUM_ITS ---
HP - PT D/C Summary It has been my pleasure to treat JOYCELYN BUTLER under orders from Lamar Weiss, for the diagnosis of BACK PAIN for a total of 8 visit(s). Discharge Date: 07/27/18 Please see the following information for a summary of their discharge status. - Subjective Subjective: Seen Dr weston hernandez md thoracic region. Patient feels stronger , but spouse stated can do ex's on own - Pain Bilateral Back Pain Intensity (Out of 10): 5 - Overall Improvement % Improvement: 40 - Objective Objective/Function: POSTURE: mild foward posture trunk flexed ,hip knee flexed. GAIT: ambulates with slow cadnece mild foeard posture with O2. MMT: quads/ hams 4-/5 ,ankle 2/3 right,hip flexion 3+/5 right left 4-/5. TRANSFERS :sit stand mod independant. LUMBAR ROM: mod loss flexion extemsion sever loss - Goals Goal 1:: Independant with HEP Goal Progress: Goal Met Goal 2:: Patient increase strength BLE 1/2 grade to improve function. Goal Progress: Progressing Goal 3:: Patient decrease lumbar pain by 40% or greater to improve function. Goal Progress: Progressing Goal 4:: Patient to ambulate 20-30 feet with less pain with 02 Goal Progress: Progressing Goal 5:: Patient improve functional endurance for activity to fair- Goal Progress: Progressing Goal 6:: Patient be more active at home to improve QOL Goal Progress: Progressing - Plan Plan: D/C TO HEP - D/C Information Discharge Comments: HEP If there are questions or concerns regarding this patient's physical therapy, please feel free to call me at [phone]. Thank you for the referral of this patient. Sincerely, [place], PT,
== END 2018-07-27 19:00 | disposition home or self-care (01) ==
LOC: PT 11:00
PROVIDERS: Family Provider Family Medicine; PCP Family Medicine; Visit Provider Anesthesiology Pain Medicine
DX: M54.9 Dorsalgia, unspecified (principal)
CPT/HCPCS: 97110; 97162; 97530

== ENCOUNTER 2018-08-02 11:16 | Emergency (ER) | payer MEDICARE, OTHER, SELFPAY ==
[2018-08-02 11:17] VITALS: BP 101/85; PULSE 86; RESP 22; TEMP 35.8; O2SAT 92; BMI 20.9
[2018-08-02] MEDS: 0.9% Normal Saline 1,000 ML 250 ML IV (12:05)
[2018-08-02] MEDS: Morphine 4 MG/ML Syringe IV (12:06)
[2018-08-02] MEDS: Ondansetron 4 MG/2 ML Vial IV (12:06)
[2018-08-02 12:32] LABS: Anion Gap 2 (5-15); BUN 44 mg/dL (7-18); Calcium,Total 9.2 mg/dL (8.5-10.1); Chloride 100 mmol/L (98-107); Creatinine, Serum 1.42 mg/dL (0.70-1.30); EST Glomerular Filtration Rate 52 mL/min (>60); Est Glom Filt Rate - Afr Amer 63 mL/min (>60); Estimated Creatinine Clearance 46.58 ml/min; Glucose 112 mg/dL (74-106); Sodium Level 145 mmol/L (136-145)
[2018-08-02 13:05] LABS: Bacteria 0 SEEN /hpf (None Seen); Mucous, Urine 0 SEEN /hpf (<or=2+); Red Blood Cells-Urine 0 SEEN /hpf (0-5)
[2018-08-02 13:08] LABS: Color, Urine Yellow (Yellow); Glucose, Dipstick 100 mg/dl (Normal); Ketone-Dipstick Negative (Negative); Leukocyte Esterase-Dipstick 25 /ul (Negative); Nitrite-Dipstick Negative (Negative); Occult Blood-Urine Negative /ul (Negative); Protein-Dipstick Negative (Negative); Specific Gravity, Urine 1.015 (1.002-1.030); Urine Bilirubin Dipstick Negative (Negative); Urine Clarity Clear (Clear); Urine Urobilinogen Normal (Normal)
[2018-08-02 13:17] LABS: Squamous Epithelial Cells - UA 0-5 SEEN /hpf (0-5); White Blood Cells 0-5 SEEN /hpf (0-5)
--- NOTE | 2018-08-02 14:55 | ED.VISSUMM ---
- ER Visit Summary Date of Service: 08/02/18 Chief Complaint: Acute left flank pain History of Present Illness: The patient is a 68 M who presents with acute left flank pain that started last evening. He states he was reaching for something when he developed severe excruciating pain. He denies fever, chills night sweats. He denies dysuria, frequency, urgency or hematuria. He denies history of renal ureterolithiasis. He does have history of end-stage renal disease. He states he has slight worsening of pain with movement. The pain is constant. He has not taken anything for the pain. He states he has not noted a rash. He denies respiratory symptoms. He does report shortness of breath and dyspnea exertion secondary to chronic COPD. He is oxygen dependent. He also has history of obstructive sleep apnea. Physical Examination: Patient appears uncomfortable. He is thin. Vital signs noted and remarkable for respiratory rate of 22. He is not hypoxic. H EENT exam is unremarkable. Lungs revealed decreased movement of air bilaterally with end inspiratory rales. Slight scattered wheezing noted on expiration. Heart is regular without murmur, gallop or rub. Abdomen is soft nontender with no palpable cell mass or abdominal bruit. There is no reproducible left flank pain. Movement causes slight exacerbation of his pain. There is no evidence of inguinal lymphadenopathy or hernia. No rash noted. Neuro exam is nonfocal. Test Results: Basic metabolic panel marked for an elevated creatinine 1.42 and a BUN of 44. UA is remarkable for glucose. Emergency Department Course and Treatment: With minimal discomfort with movement and not reproducible pain on exam differential would include ureterolithiasis versus musculoskeletal versus other cause. Patient was medicated with 4 mg of morphine. He was reassessed at 1450 and reports marked improvement. Treatment Plan: Prescription for p.o. analgesia and follow-up with PCP as needed Disposition: Discharged to home with significant other/balance Impression: Musculoskeletal left back pain without sciatica This note was generated with [employer] dictation software. It may contain incorrect words, spelling, and punctuation that were not noted in review of the chart prior to signing ED Disposition - Plan for ED Patient: Disposition: Home or Assisted Living Chief Complaint: Back Instructions: ED Spasm Back No Trauma Prescriptions: Hydrocodone Bitart/Apap 5-325 [Hudson 5MG-325MG] 1 tab PO Q6H PRN PRN 3 Days #10 tab PRN Reason: Pain Referrals: Sony Allison MD [Primary Care Provider] - 3-5 Days if not improving
[2018-08-02 15:24] VITALS: BP 100/70; PULSE 70; RESP 16; O2SAT 100
== END 2018-08-02 15:24 | disposition home or self-care (01) ==
PROVIDERS: Emergency Provider Emergency Medicine; Family Provider Family Medicine; PCP Family Medicine
DX: M54.9 Dorsalgia, unspecified (principal); J44.9 Chronic obstructive pulmonary disease, unspecified; G47.33 Obstructive sleep apnea (adult) (pediatric); I13.2 Hypertensive heart and chronic kidney disease with heart failure and with stage 5 chronic kidney disease, or end stage renal disease; E11.22 Type 2 diabetes mellitus with diabetic chronic kidney disease; I50.9 Heart failure, unspecified; N18.6 End stage renal disease; I48.92 Unspecified atrial flutter; Z99.81 Dependence on supplemental oxygen; Z79.02 Long term (current) use of antithrombotics/antiplatelets; Z79.899 Other long term (current) drug therapy
CPT/HCPCS: 80048; 81001; 96361; 96374; 96375; 99283; J7030; A4216; J2405

== ENCOUNTER → 2018-10-10 13:42 | Outpatient (CLI) | payer MEDICARE, OTHER, SELFPAY ==
[2018-09-27 11:26] VITALS: BMI 21.7
--- NOTE | 2018-10-10 13:48 | RAD_ITS ---
STUDY: X-RAY - LUMBAR SPINE REASON FOR EXAM: Male, 68 years old. Intense pain but no recent fall. TECHNIQUE: 3 view(s) of the lumbar spine were obtained. COMPARISON: None FINDINGS: Normal lumbar lordosis. There is no substantial scoliosis. Mild degenerative anterolisthesis of L3 on L4. Mild anterior wedge compression fracture of the upper L2 vertebral body. Age is indeterminate. No other suspicious acute fractures of the lumbar spine. Mild L4-L5 disc space height narrowing. The remaining lumbar disc space heights are normal. The soft tissue structures are unremarkable. RAD/Lumbar Spine 2 or 3 Views IMPRESSION: 1. Mild anterior wedge compression fracture of the upper L2 vertebral body. Age is indeterminate. 2. Mild degenerative anterolisthesis of L3 on L4. COMMENT: If there is focal tenderness at the thoracolumbar junction area and kyphoplasty is a therapeutic consideration, MRI will be very helpful for further evaluation. Electronically Signed: Hossein Gonzales MD at 14:32 EST , Service support ,
== END ==
PROVIDERS: Family Provider Family Medicine; PCP Family Medicine; Referring Provider Anesthesiology Pain Medicine; Visit Provider Anesthesiology Pain Medicine
DX: M54.5 Low back pain (principal)
CPT/HCPCS: 72100

== ENCOUNTER 2018-11-04 11:59 | Day surgery (SDC) | payer MEDICARE, OTHER, SELFPAY ==
[2018-11-04] VITALS (7 sets, daily range): BP systolic 100–116; BP diastolic 62–79; PULSE 70–104; RESP 15–20; TEMP 36–36.6; O2SAT 99–100; BMI 19.8
--- NOTE | 2018-11-04 13:00 | RAD_ITS ---
PROCEDURE: Kyphoplasty of the L2 vertebrae. DATE OF EXAMINATION: November 04, 2018 INDICATION: Male, 68 years old. Back pain. FLUOROSCOPY TIME (if supplied): (1:20) minutes/seconds. 6 coned-down views were obtained. Intraoperative imaging provided for vertebroplasty of the L2 vertebrae. RAD/Spine 1 View Any Level IMPRESSION: Intraoperative imaging provided for vertebroplasty of the L2 vertebrae. Electronically Signed: Ritesh Bunch MD at 15:59 EST Tel [phone], Service support ,
[2018-11-04] MEDS: Cefazolin 2 GM in 0.9% Normal Saline 100 ML IV (14:11)
[2018-11-04] MEDS: Bupiv/Epi 0.5% Mpf 30 ML Vial (14:30)
--- OUTSIDE RECORDS SUMMARY | 2018-12-21 06:38 | XMS RPT_ITS ---
:1950 Author Organization [facility] Address [address] [place] [id number] Phone Care Team Providers Name Role Phone Smith Scot D Unavailable Reason for Visit Reason For Visit Description Start Date New - 1st visit with practice Preliminary reason for visit data, not yet signed by the author as of mid back pain Preliminary reason for visit data, not yet signed by the author as of Chief Complaint Chief Complaint Description Start Date mid back pain Preliminary chief complaint data, not yet signed by the author as of Instructions Instruction Description Start Date Completed Plan of Care Type Date Detail Patient education \cps-sql1\CPS_PtEducation\qu itting_[id number], \cps-[email or web address]\CPS_PtEducation\CD [email or web address].pdf Medications Medication Instructions Start Stop Generic Name NDC Provider Date Date [facility] VITAMIN B12 dissolve one CYANOCOBALAMIN 97689056501 Scot D 1000 MCG TABS tablet under 20 Smith DO the tongue once a day PREDNISONE 10 MG one tablet by / PREDNISONE 65092238604 Scot D TABS mouth daily 20 Smith DO PULMICORT inhale two / BUDESONIDE 30927540187 Scot D FLEXHALER 180 puffs as 20 Smith DO MCG/ACT AEPB instructed twice daily NITROGLYCERIN 0.4 dissolve one / NITROGLYCERIN 41851000653 Scot D MG SUBL tablet under 20 Smith DO tongue as needed KLOR-CON M10 10 one tablet by / POTASSIUM 92661884146 Scot D MEQ CR-TABS mouth at 20 CHLORIDE RACHANA ER Smith DO breakfast PULMICORT 0.5 / BUDESONIDE 38889871880 Scot D MG/2ML SUSP 20 Smith DO XOPENEX 0.63 3 ml via / LEVALBUTEROL HCL 57229050395 Scot D MG/3ML NEBU nebulizer every 20 Smith DO six hours as needed for wheezing/shortn ess of breath FINASTERIDE 5 MG one tablet a / FINASTERIDE 79780851378 Scot D TABS day 20 Smith DO CARVEDILOL 25 MG one tablet / CARVEDILOL 19100936999 Scot D TABS twice a day 20 Smith DO with meals DIGOXIN 250 MCG one tablet a / DIGOXIN 02784463656 Scot D TABS day 20 Smith DO FUROSEMIDE 20 MG one tablet / FUROSEMIDE 80987954933 Scot D TABS twice a day 20 Smith DO ELIQUIS 5 MG TABS one tablet a / APIXABAN 03296547694 Scot D day 20 Smith DO MEMANTINE HCL ER one tablet a / MEMANTINE HCL 59797990808 Scot D 28 MG [id number] day 20 Smith DO LISINOPRIL 20 MG one tablet a / LISINOPRIL 46628926429 Scot D TABS day 20 Smith DO SPIRONOLACTONE 25 one tablet a / SPIRONOLACTONE 29982335351 Scot D MG TABS day 20 Smith DO HYDRALAZINE HCL one tablet / HYDRALAZINE HCL 46233288524 Scot D 50 MG TABS three times a 20 Smith DO day ISOSORBIDE 1 tablet daily / ISOSORBIDE 07135017450 Scot D MONONITRATE ER 30 20 MONONITRATE Smith DO MG [id number] Conditions or Problems Problem Problem Onset Status Entry Provider Comment Standard Annotate Name Code Date Date Description Other [id number] Active Scot D Chronic low chronic (SNOMED CT) / Smith DO back pain pain Low back [id number] Active Scot D Chronic low pain (SNOMED CT) / Smith DO back pain Allergies, Adverse Reactions, Alerts Observed no known allergies at Social History Concept Description Observation Name Observation Value Units Start Date Alcohol use ETOH USE No Preliminary social history data, not yet signed by the author as of Current every day SMOK STATUS current everyday smoker smoker Preliminary social history data, not yet signed by the author as of Details of drug DRUG USE No misuse behavior Preliminary social history data, not yet signed by the author as of Vital Signs Date Name Value Unit Description BMI (Body Mass 21.84 kg/m2 Body Mass Index Index) [Ratio] Preliminary vital sign data, not yet signed by the author as of Height 71 [in_us] height E&M Preliminary vital sign data, not yet signed by the author as of Height 180 cm height in centimeters E&M Preliminary vital sign data, not yet signed by the author as of Weight Measured 156 [lb_av] weight E&M Preliminary vital sign data, not yet signed by the author as of Weight Measured 71 kg weight in kilograms E&M Preliminary vital sign data, not yet signed by the author as of Results No information available. Procedures Code Procedure Name Date Entry Date G8730 Pain assessment documented as positive - follow-up documented G8427 Current medications documented 4004F-8P Tobacco screening or cessation counseling not performed - unknown reason G8785 Blood pressure screening not performed - reason not given 1100F Fallen more than twice or injured themselves from a fall documented 3288F Falls risk assessment documented 0518F Falls plan of care documented [id number] Patient Encounter Medications Administered No information available. Immunizations No information available. Advance Directives There may be information available, but it has not been provided by the sender. Assessments There may be information available, but it has not been provided by the sender. Review of Systems There may be information available, but it has not been provided by the sender. Family History There may be information available, but it has not been provided by the sender. History of Past Illness There may be information available, but it has not been provided by the sender. History of Present Illness There may be information available, but it has not been provided by the sender.
--- OUTSIDE RECORDS SUMMARY | 2018-12-21 06:40 | XMS RPT_ITS ---
:1950 Author Organization OHIP Support Name Relationship Address Phone Kg Butler Unavailable [address] [place] [address] Marisol Butler Unavailable Unavailable + [place] [address] R Unavailable Unavailable Unavailable Butler, Kg Unavailable [address] + [address] [place] [address] Marisol Butler Unavailable Unavailable + [place] [address] R Unavailable Unavailable Unavailable Butler, Kg Unavailable [address] [place] [address] Marisol Butler Unavailable Unavailable + [place] [address] R Unavailable Unavailable Unavailable BUTLER, KG Unavailable [address] [place] [address] MARISOL BUTLER Unavailable Unavailable + [place] [address] R Unavailable Unavailable Unavailable Butler, Kg Unavailable [address] [place] [address] Marisol Butler Unavailable Unavailable + [place] [address] R Unavailable Unavailable Unavailable Butler, Kg Unavailable [address] [place] [address] Marisol Butler Unavailable Unavailable + [place] [address] R Unavailable Unavailable Unavailable BUTLER, KG Unavailable [address] [place] [address] MARISOL BUTLER Unavailable Unavailable + [place] [address] R Unavailable Unavailable Unavailable BUTLER, KG Unavailable [address] [place] [address] MARISOL BUTLER Unavailable Unavailable + [place] [address] R Unavailable Unavailable Unavailable BUTLER, KG Unavailable [address] [place] [address] MARISOL BUTLER Unavailable Unavailable + [place] [address] R Unavailable Unavailable Unavailable Butler, Kg Unavailable [address] [place] [address] Marisol Butler Unavailable Unavailable + [place] [address] R Unavailable Unavailable Unavailable Butler, Kg Unavailable [address] [place] [address] Marisol Butler Unavailable Unavailable + [place] [address] R Unavailable Unavailable Unavailable BUTLER, KG Unavailable [address] [place] [address] MARISOL BUTLER Unavailable Unavailable + [place] [address] R Unavailable Unavailable Unavailable Butler, Kg Unavailable [address] [place] [address] Marisol Butler Unavailable Unavailable + [place] [address] R Unavailable Unavailable Unavailable BUTLER, KG Unavailable [address] [place] [address] MARISOL BUTLER Unavailable Unavailable + [place] [address] R Unavailable Unavailable Unavailable Butler, Kg Unavailable [address] [place] [address] Marisol Butler Unavailable Unavailable + [place] [address] R Unavailable Unavailable Unavailable BUTLER, KG Unavailable [address] [place] [address] MARISOL BUTLER Unavailable Unavailable + [place] [address] R Unavailable Unavailable Unavailable Butler, Kg Unavailable [address] [place] [address] Marisol Butler Unavailable Unavailable + [place] [address] R Unavailable Unavailable Unavailable BUTLER, KG Unavailable [address] [place] [address] MARISOL BUTLER Unavailable Unavailable + [place] [address] R Unavailable Unavailable Unavailable Butler, Kg Unavailable [address] [place] [address] Marisol Butler Unavailable Unavailable + [place] [address] R Unavailable Unavailable Unavailable Butler, Kg Unavailable [address] [place] [address] Marisol Butler Unavailable Unavailable + [place] [address] R Unavailable Unavailable Unavailable Butler, Kg Unavailable [address] [place] [address] Marisol Butler Unavailable Unavailable + [place] [address] R Unavailable Unavailable Unavailable Butler, Kg Unavailable [address] [place] [address] Marisol Butler Unavailable Unavailable + [place] [address] R Unavailable Unavailable Unavailable BUTLER, KG Unavailable [address] [place] [address] MARISOL BUTLER Unavailable [address] [place] [address] R Unavailable Unavailable Unavailable BUTLER, KG Unavailable [address] [place] [address] MARISOL BUTLER Unavailable [address] [place] [address] R Unavailable Unavailable Unavailable BUTLER, KG Unavailable [address] [place] [address] MARISOL BUTLER Unavailable [address] [place] [address] R Unavailable Unavailable Unavailable BUTLER, KG Unavailable [address] [place] [address] MARISOL BUTLER Unavailable Unavailable + [place] [address] R Unavailable Unavailable Unavailable BUTLER, GK Unavailable [address] [place] [address] MARISOL BUTLER Unavailable Unavailable + [place] [address] R Unavailable Unavailable Unavailable BUTLER, KG Unavailable [address] [place] [address] MARISOL BUTLER Unavailable Unavailable + [place] [address] R Unavailable Unavailable Unavailable BUTLER, KG Unavailable [address] [place] [address] MARISOL BUTLER Unavailable . + [place] [address] R Unavailable Unavailable Unavailable BUTLER, KG Unavailable [address] [place] [address] MARISOL BUTLER Unavailable . + [place] [address] R Unavailable Unavailable Unavailable BUTLER, KG Unavailable [address] [place] [address] MARISOL BUTLER Unavailable . + [place] [address] R Unavailable Unavailable Unavailable BUTLER, KG Unavailable [address] [place] [address] MARISOL BUTLER Unavailable . + [place] [address] R Unavailable Unavailable Unavailable BUTLER, KG Unavailable [address] [place] [address] MARISOL BUTLER Unavailable Unavailable + [place] [address] R Unavailable Unavailable Unavailable BUTLER, KG Unavailable [address] [place] [address] MARISOL BUTLER Unavailable Unavailable + [place] [address] R Unavailable Unavailable Unavailable BUTLER, KG Unavailable [address] [place] [address] MARISOL BUTLER Unavailable Unavailable + [place] [address] R Unavailable Unavailable Unavailable BUTLER, KG Unavailable [address] [place] [address] MARISOL BUTLER Unavailable Unavailable + [place] [address] R Unavailable Unavailable Unavailable BUTLER, KG Unavailable [address] [place] [address] MARISOL BUTLER Unavailable . + [place] [address] R Unavailable Unavailable Unavailable BUTLER, KG Unavailable [address] [place] [address] MARISOL UBTLER Unavailable . + [place] [address] R Unavailable Unavailable Unavailable BUTLER, KG Unavailable [address] [place] [address] MARISOL BUTLER Unavailable Unavailable + [place] [address] R Unavailable Unavailable Unavailable BUTLER, KG Unavailable [address] [place] [address] MARISOL BUTLER Unavailable Unavailable + [place] [address] R Unavailable Unavailable Unavailable BUTLER, KG Unavailable [address] [place] [address] MARISOL BUTLER Unavailable Unavailable + [place] [address] R Unavailable Unavailable Unavailable BUTLER, KG Unavailable [address] [place] [address] MARISOL BUTLER Unavailable Unavailable + [place] [address] R Unavailable Unavailable Unavailable BUTLER, KG Unavailable [address] [place] [address] MARISOL BUTLER Unavailable . + [place] [address] R Unavailable Unavailable Unavailable BUTLER, KG Unavailable [address] [place] [address] MARISOL BUTLER Unavailable Unavailable + [place] [address] R Unavailable Unavailable Unavailable BUTLER, KG Unavailable [address] [place] [address] MARISOL BUTLER Unavailable Unavailable + [place] [address] R Unavailable Unavailable Unavailable BUTLER, KG Unavailable [address] [place] [address] MARISOL BUTLER Unavailable . + [place] [address] R Unavailable Unavailable Unavailable BUTLER, KG Unavailable [address] [place] [address] MARISOL BUTLER Unavailable . + [place] [address] R Unavailable Unavailable Unavailable KG BUTLER Unavailable [address] [address] [place] [address] MARISOL BUTLER Unavailable . + [place] [address] R Unavailable Unavailable Unavailable KG BUTLER Unavailable [address] [place] [address] R Unavailable Unavailable Unavailable KG BUTLER Unavailable [address] [place] [address] R Unavailable Unavailable Unavailable KG BUTLER Unavailable [address] [place] [address] R Unavailable Unavailable Unavailable KG BUTLER Unavailable [address] [place] [address] R Unavailable Unavailable Unavailable Care Team Providers Name Role Phone Lamar Weiss Attending Unavailable [facility] Unavailable Lamar Weiss Referring Unavailable [facility] Unavailable Agyepong, Alpesh Admitting Unavailable Agyepong, Alpesh Referring Unavailable Jet Arnett Consulting Unavailable SemenTheresa vieyra Attending Unavailable Prah, Alpesh Consulting Unavailable Agyepong, Alpesh Admitting Unavailable Agyepong, Alpesh Attending Unavailable Agyepong, Alpesh Referring Unavailable [facility] Unavailable Agyepong, Alpesh Consulting Unavailable Agyepong, Alpesh Admitting Unavailable Ronni Sotomayor Attending Unavailable Agyepong, Alpesh Referring Unavailable [facility] Unavailable Jet Arnett Consulting Unavailable Ronni Sotomayor Consulting Unavailable Agyepong, Alpesh Admitting Unavailable Jet Arnett Attending Unavailable Agyepong, Alpesh Referring Unavailable [facility] Unavailable Jet Arnett Consulting Unavailable Sementi, Theresa Consulting Unavailable Agyepong, Alpesh Admitting Unavailable Jonathon Marroquin D.O. Attending Unavailable Agyepong, Alpesh Referring Unavailable [facility] Unavailable Jet Arnett Consulting Unavailable Prah, Alpesh Consulting Unavailable Sementi, Theresa Consulting Unavailable Sementi, Theresa Referring Unavailable Agyepong, Alpesh Admitting Unavailable Prarolan, Alpesh Attending Unavailable [facility] Unavailable Jet Arnett Consulting Unavailable Prah, Alpesh Consulting Unavailable Sementi, Theresa Consulting Unavailable Agyepong, Alpesh Admitting Unavailable Sementi, Theresa Attending Unavailable Agyepong, Alpesh Referring Unavailable [facility] Unavailable Melquiades, Jet Consulting Unavailable Prah, Alpesh Consulting Unavailable Sementi, Theresa Consulting Unavailable Agyepong, Alpesh Admitting Unavailable Sementi, Theresa Attending Unavailable Agyepong, Alpesh Referring Unavailable [facility] Unavailable Melquiades, Jet Consulting Unavailable Prah, Alpesh Consulting Unavailable Sementi, Theresa Consulting Unavailable Agyepong, Alpesh Admitting Unavailable Jonathon Marroquin D.O. Attending Unavailable Agyepong, Alpesh Referring Unavailable [facility] Unavailable Melquiades, Jet Consulting Unavailable Prah, Alpesh Consulting Unavailable Sementi, Theresa Consulting Unavailable Agyepong, Alpesh Admitting Unavailable Sementi, Theresa Attending Unavailable Agyepong, Alpesh Referring Unavailable [facility] Unavailable Melquiades, Jet Consulting Unavailable Prah, Alpesh Consulting Unavailable Sementi, Theresa Consulting Unavailable Melquiades, Jet Attending Unavailable Melquiades, Jet Referring Unavailable [facility] Unavailable Melquiades, Jet Attending Unavailable Melquiades, Jet Referring Unavailable [facility] Un[facility] Unavailable Kenna Trinh Attending Unavailable RltaElijah aparicio Referring Unavailable Agyepong, Alpesh Admitting Unavailable Jonathon Marroquin D.O. Attending Unavailable Agyepong, Alpesh Referring Unavailable [facility] Unavailable Melquiades, Jet Consulting Unavailable Prah, Alpesh Consulting Unavailable Sementi, Theresa Consulting Unavailable Agyepong, Alpesh Admitting Unavailable Sementi, Theresa Attending Unavailable Agyepong, Alpesh Referring Unavailable [facility] Unavailable Melquiades, Jet Consulting Unavailable Prah, Alpesh Consulting Unavailable Sementi, Theresa Consulting Unavailable Agyepong, Alpesh Admitting Unavailable Jonathon Marroquin D.O. Attending Unavailable Agyepong, Alpesh Referring Unavailable [facility] Unavailable Melquiades, Jet Consulting Unavailable Prah, Alpesh Consulting Unavailable Sementi, Theresa Consulting Unavailable Agyepong, Alpesh Admitting Unavailable Sementi, Theresa Attending Unavailable Agyepong, Alpesh Referring Unavailable [facility] Unavailable Melquiades, Jet Consulting Unavailable Prah, Alpesh Consulting Unavailable Sementi, Theresa Consulting Unavailable Agyepong, Alpesh Admitting Unavailable Jonathon Marroquin D.O. Attending Unavailable Agyepong, Alpesh Referring Unavailable [facility] Unavailable Melquiades, Jet Consulting Unavailable Prah, Alpesh Consulting Unavailable Sementi, Theresa Consulting Unavailable Agyepong, Alpesh Admitting Unavailable Sementi, Theresa Attending Unavailable Agyepong, Alpesh Referring Unavailable [facility] Unavailable Melquiades, Jet Consulting Unavailable Prah, Alpesh Consulting Unavailable Sementi, Theresa Consulting Unavailable Agyepong, Alpesh Admitting Unavailable Sementi, Theresa Attending Unavailable Agyepong, Alpesh Referring Unavailable [facility] Unavailable Melquiades, Jet Consulting Unavailable Prah, Alpesh Consulting Unavailable Sementi, Theresa Consulting Unavailable Ingram, Marisol Attending Unavailable Ingram, Marisol Attending Unavailable Moodispaw, Jonny Attending Unavailable Agyepong, Alpesh Referring Unavailable MoodispaJonny glynn Attending Unavailable Sementi, Theresa Referring Unavailable Ingram, Marisol Attending Unavailable Maria Del Carmen, Phil Referring Unavailable [facility] Unavailable White, Anni Admitting Unavailable [place], [place] Attending Unavailable Melquiades, Jet Consulting Unavailable White, Anni Admitting Unavailable Nola Guzman [employer] Attending Unavailable Maria Del Carmen, Phil Referring Unavailable [facility] Unavailable [place], [place] Consulting Unavailable White, Anni Admitting Unavailable Melquiades, Jet Attending Unavailable Maria Del Carmen, Phil Referring Unavailable [facility] Unavailable [place], [place] Consulting Unavailable White, Anni Admitting Unavailable Nola Guzman [employer]IVER-C Attending Unavailable Maria Del Carmen, Phil Referring Unavailable [facility] Unavailable Melquiades, Jet Consulting Unavailable [place], [place] Consulting Unavailable White, Anni Admitting Unavailable Melquiades Jet Attending Unavailable Maria Del Carmen, Phil Referring Unavailable [facility] Unavailable Melquiades, Jet Consulting Unavailable Paint[place], [place] Consulting Unavailable White, Anni Admitting Unavailable Maria Del Carmen, Phil Referring Unavailable [facility] Unavailable Melquiades, Jet Consulting Unavailable [place], [place] Attending Unavailable [place], [place] Consulting Unavailable White, Anni Admitting Unavailable Nola Guzman [employer]IVER-C Attending Unavailable Maria Del Carmen, Phil Referring Unavailable [facility] Unavailable Melquiades, Jet Consulting Unavailable [place], [place] Consulting Unavailable White, Anni Admitting Unavailable Jet Arnett Attending Unavailable Maria Del Carmen, Phil Referring [facility]available [facility] Unavailable Melquiades, Jet Consulting Unavailable [place], [place] Consulting Unavailable White, Anni Admitting Unavailable Deja Joseph NP-C Attending Unavailable Maria Del Carmen, Phil Referring Unavailable [facility] Unavailable Melquiades, Jet Consulting Unavailable [place], [place] Consulting Unavailable [facility] [place] [facility] Unavailable Jopperi, Ronni Admitting Unavailable Melquiades, Jet Consulting Unavailable [place], [place] Attending Unavailable Jopperi, Ronni Attending Unavailable [facility] [place] [facility] Unavailable Jopperi, Ronni Admitting Unavailable Nola Guzman N[employer] TR[employer] DRIVER-C Attending Unavailable [facility] [place] [facility] Unavailable Melquiades, Jet Consulting Unavailable [place], [place] Consulting Unavailable Jopperi, Ronni Admitting Unavailable Melquiades Jet Attending Unavailable [facility] Unavailable Melquiades, Jte Consulting Unavailable [place], [place] Consulting Unavailable Leo Londono Attending Unavailable Leo Londono Referring Unavailable [facility] Unavailable Kenna Trinh Attending Unavailable [facility], Sally Referring Unavailable Anni Tello Attending Unavailable [place], [place] Attending Unavailable [facility] Unavailable Alli Hartman Attending Unavailable Jonny Meneses Attending Unavailable WhiteAnni Referring Unavailable BasaliLamar Attending Unavailable Basali, Ayman Referring Unavailable [facility] Unavailable Basali Ayman Attending Unavailable Basali, Ayman Referring Unavailable [facility] Unavailable [facility] Unavailable Jenifer Grewal Attending Unavailable [facility] Unavailable Ignacio New Attending Unavailable Jet Arnett Attending Unavailable Elijah Wayne Referring Unavailable Basali, Ayman Attending Unavailable Basali, Ayman Referring Unavailable [facility] [place] Primary [facility] Unavailable JARETT FINN Attending Unavailable JARETT FINN Referring Unavailable DESMOND ROMERO JR Attending Unavailable JARETT FINN Referring Unavailable MASON DIAZ (STEPHAN) Attending Unavailable JARETT FINN Referring Unavailable MASON DIAZ (STEPHAN) Referring Unavailable TONY RICK Attending Unavailable JARETT FINN Referring Unavailable HUMA, JARETT E Referring Unavailable DESMOND ROMERO JR Attending Unavailable ISHMAEL WAYNE R Referring Unavailable ELDERSALLY MATUTE Attending Unavailable MASON DIAZ ([place]) Attending Unavailable SALLY ALLISON Referring Unavailable ELDERBROSALLY MILLER Referring Unavailable DIAZ, MASON ([place]) Referring Unavailable FAB, CHRISS (RIBBON CLEANER) Attending Unavailable DIAZ, MASON ([place]) Attending Unavailable HUMA, JARETT E Attending Unavailable HUMA, JARETT E Referring Unavailable FAB, CHRISS (RIBBON CLEANER) Referring Unavailable DIAZ, MASON ([place]) Referring Unavailable ELDERBROSALLY MILLER Attending Unavailable FAB, CHRISS (RIBBON CLEANER) Referring Unavailable ELDERBROCKSALLY Referring Unavailable RLTAK, ISHMAEL R Referring Unavailable FAB, CHRISS (RIBBON CLEANER) Referring Unavailable HUMA, JARETT E Referring Unavailable HUMA, JARETT E Attending Unavailable HUMA, JARETT E Referring Unavailable HUMA, JARETT E Referring Unavailable TONY RICK Attending Unavailable TONY RICK Referring Unavailable TONY RICK Referring Unavailable HUMA, JARETT E Referring Unavailable HUMA, JARETT E Referring Unavailable HUMA, JARETT E Referring Unavailable HUMA, JARETT E Attending Unavailable HUMA, JARETT E Referring Unavailable HUMA, JARETT E Referring Unavailable SALLY ALLISON Attending Unavailable SALLY ALLISON Referring Unavailable HUMA, JARETT E Referring Unavailable MASON DIAZ ([place]) Referring Unavailable DESMOND ROMERO JR Referring Unavailable TEOFILO BEARDEN Referring Unavailable TEOFILO BEARDEN Attending Unavailable MARISOL INGRAM Referring Unavailable TEOFILO BEARDEN Referring Unavailable DESMOND ROMERO Attending Unavailable [facility] Referring Unavailable Sally Allison Primary Care Unavailable HUMA, JARETT Attending Unavailable HUMA, JARETT Referring Unavailable Elijah Wayne RJulian Primary Care Unavailable HUMA, JARETT Attending Unavailable HUMA, JARETT Referring Unavailable Elijah Wayne Primary Care Unavailable PROBLEMS PROBLEMS DATE TYPE CONDITION / CODE ATTENDING STATUS SOURCE Active Presence of automatic NA Active [facility] (implantable) cardiac Clinic Main defibrillator / [place] Z95.810(ICD-10) Repository Active Chronic obstructive NA Active [facility] pulmonary disease, Clinic Main unspecified / [place] J44.9(ICD-10) Repository Active Thrombocytopenia, NA Active [facility] [facility] unspecified / Clinic Main D69.6(ICD-10) [place] Repository Unknown M48.50XA - Collapsed Sementi, Active [place] 9 vertebra, not Theresa Community elsewhere classified, Hospital site unspecified, Repository initial encounter for fracture / M48.50XA(ICD-10) Unknown R94.31 - Abnormal Moodispaw, Active [place] 9 electrocardiogram [facility] [ECG] [EKG] / Hospital R94.31(ICD-10) Repository Active Obstructive sleep LIZZ DEVINE, Active [place] 8 apnea (adult) [facility] Other (pediatric) / [place] G47.33(ICD-10) Repository Active Unspecified dementia LIZZ DEVINE, Active [facility] 8 without behavioral [facility] Other disturbance / [place] F03.90(ICD-10) Repository Active Repeated falls / LIZZ DEVINE, Active [place] 8 R29.6(ICD-10) [facility] Other [place] Repository Active Disease of spinal LIZZ DEVINE, 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, unspecified / [facility] Other G95.9(ICD-10) [place] Repository Active Other fracture of LIZZ DEVINE, Active [facility] 8 unspecified lumbar [facility] Other vertebra, initial [place] encounter for closed Repository fracture / S32.008A(ICD-10) Admitting Unknown / UNK(Unknown) DESMOND ROMERO Active [facility] 8 [facility] Rep[facility] Unknown Z23 - Encounter for Jet Arnett Active [facility] 8 immunization / Community Z23(ICD-10) Hospital Repository Active 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 / I25.10(ICD-10) Active Other cardiomyopathies NA Active [facility] / I42.8(ICD-10) Clinic Main [place] Repository Unknown M54.9 - Dorsalgia, New, Ignacio Active [place] 8 unspecified / Community M54.9(ICD-10) Hospital Repository Unknown Z79.899 - Other long New, Ignacio Active [place] 8 term (current) drug Community therapy / Hospital Z79.899(ICD-10) Repository Active Essential (primary) NA Active [facility] hypertension / Clinic Main I10(ICD-10) [place] Repository Active Anemia, unspecified / NA Active [facility] 3 D64.9(ICD-10) Clinic Main [place] Repository Active Retention of urine, DIAZ, Active [facility] unspecified / [place] ([place]) Clinic Main R33.9(ICD-10) [place] Repository Active Urinary tract DIAZ, Active [place] 8 infection, site not MASON ([place]) Clinic Main specified / [place] N39.0(ICD-10) Repository Unknown R06.02 - Shortness of Leo Londono Active [place] 8 breath / Community R06.02(ICD-10) Hospital Repository Unknown R06.00 - Dyspnea, Leo Londono Active [place] 8 unspecified / Community R06.00(ICD-10) Hospital Repository Unknown I50.22 - Chronic Moodispaw, Active [place] 8 systolic (congestive) [facility] heart failure / Hospital I50.22(ICD-10) Repository Unknown I25.5 - Ischemic [place], Active [place] 8 cardiomyopathy / [facility] I25.5(ICD-10) Hospital Repository Active Acute cystitis without NA Active [facility] 8 hematuria / Clinic Main N30.00(ICD-10) [place] Repository Active Hypertrophy of breast NA Active [facility] / N62(ICD-10) Clinic Main [place] Repository Active Unspecified lump in NA Active [facility] 8 the right breast, Clinic Main unspecified quadrant / [place] N63.10(ICD-10) Repository Active Unknown / UNK(Unknown) LIZZ DEVINE, Active [place] 8 DESMOND Owen [facility] Main [place] Repository Unknown Z51.89 - Encounter for Andrés, Active [place] 8 other specified [facility] aftercare / Hospital Z51.89(ICD-10) Repository Active Unspecified atrial NA Active [facility] 5 fibrillation / Clinic Main I48.91(ICD-10) [place] Repository Active Benign prostatic NA Active [facility] 8 hyperplasia with lower Clinic Main urinary tract symptoms [place] / N40.1(ICD-10) Repository Active Frequency of NA Active [facility] 8 micturition / Clinic Main R35.0(ICD-10) [place] Repository Active Chronic systolic HUMA, Active [place] 8 (congestive) heart [facility] Other failure / [place] I50.22(ICD-10) Repository Active Paroxysmal atrial HUMA, Active [place] 8 fibrillation / [facility] Other I48.0(ICD-10) [place] Repository Unknown J44.9 - Chronic MelquiadesJet rodriguez Active [place] 8 obstructive pulmonary Community disease, unspecified / Hospital J44.9(ICD-10) Repository PROCEDURES PROCEDURES No Procedure Records FoundRESULTS RESULTS PROGRESS Observed: 12/14/2018 Status: COMPLETED Source: [place] 3:17 PM [facility] REPOSITORY HNO ID: [id number] Author: Robbin WrenRn) Service: (none) Author Type: Registered Nurse Type: Progress Notes Filed: 12/14/2018 3:18 PM Note Text: PRIMARY CARE COORDINATION FOLLOW-UP NOTE Provider Action/FYI Noted Patient identified by name and date of . YES Signature Tricia Siegel RN December 14, 2018 PROGRESS Observed: 12/14/2018 Status: COMPLETED Source: [place] 12:51 PM [facility] REPOSITORY HNO ID: [id number] Author: Elyssa Menendez Service: (none) Author Type: Journalism Professor Type: Progress Notes Filed: 12/14/2018 3:18 PM Note Text: POPULATION HEALTH FIELD SERVICE REP QUICKNOTE Provider Action/FYI: Mariah called from [facility]. Jimmy is doing ok. He is finishing with rehab. Service. Family hasn't decided if Jimmy will be return home or longterm resident. Palliative care was called and came to see the patient. No discharge date Will follow up next Wednesday, November Patient identified by name and . Elyssa Menendez MA PROGRESS Observed: 12/14/2018 Status: COMPLETED Source: [place] 8:41 AM [facility] REPOSITORY HNO ID: [id number] Author: Elyssa Menendez Service: (none) Author Type: Journalism Professor Type: Progress Notes Filed: 12/14/2018 3:18 PM Note Text: POPULATION HEALTH FIELD SERVICE REP QUICKNOTE Provider Action/FYI: Called , left message for MANJULA Ward, for an update of Jimmy Butler's condition. Next follow up December 21. Patient identified by name and . Elyssa Menendez MA BASIC METABOLIC Collected: 12/14/2018 Status: F Source: [place] PROFILE (BMP) 6:30 AM [facility] REPOSITORY Order Comment: 408 TYPE CODE TESTS RESULT OUT OF RANGE REFERENCE UNITS LAB L501.0100 74-106 mg/dL High GLU 112 Result Comment: Fasting Glucose result from 100 to 125 mg/dL suggests IMPAIRED HOMEOSTASIS per A.D.A. criteria. Please note revised GLUCOSE reference range effective 2017. LAB L501.1000 7-18 mg/dL High BUN 25 LAB L501.1100 0.70-1.30 mg/dL Normal CREAT,SERUM 1.03 Result Comment: The validity of the calculated GFR AND GFRAA in patients over 70 years has not been determined. Clinical correlation is essential. LAB L501.1110 >60 mL/min Normal EST GFR 76 Result Comment: Non- GFR Calc LAB L501.1115 >60 mL/min Normal EST GFR - AA 92 Result Comment: GFR Calc LAB L501.1300 10-20 RATIO High BUN/CRE 24.3 LAB L501.2200 8.5-10.1 mg/dL Low CA 8.3 LAB L501.5300 136-145 mmol/L High NA 146 LAB L501.5600 3.5-5.1 mmol/L K Normal 4.0 LAB L501.5900 98-107 mmol/L CL Normal 101 LAB L501.6100 21.0-32.0 mmol/L High CO2 41.0 LAB L501.6200 5-15 Low GAP 4 Performed By: #### L500.2500 #### [facility] [address] [place], [address] CBC-COMPLETE BLOOD CNT Collected: 12/14/2018 Status: F Source: [place] NO DIFF 6:30 AM [facility] REPOSITORY TYPE CODE TESTS RESULT OUT OF RANGE REFERENCE UNITS LAB L100.1000 4.4-11.0 K/mm3 Low WBC 2.9 LAB L100.1200 4.6-6.2 M/mm3 Low RBC 2.93 LAB L100.1300 13.0-16.5 g/dl Low HGB 8.1 LAB L100.1400 40-54 % Low HCT 28.8 LAB L100.1500 80-94 fL High MCV 98.3 LAB L100.1600 27.0-32.0 pg Normal MCH 27.6 LAB L100.1700 32-36 g/gl Low MCHC 28.1 LAB L100.1810 11.6-14.6 % High RDW CV 20.8 LAB L100.1820 35.1-43.9 fl High RDW SD 69.1 LAB L100.1900 150-450 K/mm3 Low PLT 121 LAB L100.2000 6.2-12.0 fl Normal MPV 9.0 Performed By: #### L100.0500, L100.4500 #### [facility] [address] [place], [place], [address] DIFFERENTIAL COMMENT Collected: 12/14/2018 Status: F Source: [place] 6:30 AM [facility] REPOSITORY TYPE CODE TESTS RESULT OUT OF RANGE REFERENCE UNITS LAB L100.4500 Normal SMEAR COMMENT Result Comment: SLIDE SCANNED - 1+ ANISO. Performed By: #### L100.0500, L100.4500 #### [facility] [address] [place], [place], [address] CNPTOUTREACH Observed: 12/14/2018 Status: COMPLETED Source: [place] 12:00 AM [facility] REPOSITORY Patient Outreach (FAMPWS) JIMMY BUTLER ([id number]) 1950 M Date Time Provider Department 12/14/18 ELYSSA MENENDEZ (KULDEEP) FAMPWS During your visit today, we recorded the following information about you: Elyssa Menendez MA 12/14/2018 3:18 PM Signed [facility] FIELD SERVICE REP FERN Provider Action/FYI: Called , left message for MANJULA Ward, for an update of Jimmy Butler's condition. Next follow up December 21. Patient identified by name and . KULDEEP Sanchez MA 12/14/2018 3:18 PM Signed [facility] FIELD SERVICE REP FERN Provider Action/FYI: Mariah called from [facility]. Jimmy is doing ok. He is finishing with rehab. Service. 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 Palliative care was called and came to see the patient. No discharge date Will follow up next Wednesday, November Patient identified by name and . KULDEEP Sanchez RN 12/14/2018 3:18 PM Signed PRIMARY CARE COORDINATION FOLLOW-UP NOTE Provider Action/FYI Noted Patient identified by name and date of . YES Signature Tricia Siegel RN December 14, 2018 Allergies As of Date: 12/14/2018 Noted Allergy Reaction ASA (ASPIRIN) 07/19/2017 8 - GI Upset ASA (SALICYLATES) 01/29/2006 8 - GI Upset Date Reviewed: 12/09/2018 Reviewed by: Marylou Rahman LPN - Fully Assessed Reason for Visit: PHMA Monitoring [3812] [facility] [3612] Reason For Visit History Recorded Prescriptions as of 12/14/2018 Sig: AMIODARONE 200 MG TABLET Take 200 mg by mouth once josh* OXYCODONE 5 MG TABLET Take 5 mg by mouth every 8 ho* ALBUTEROL SULFATE 2.5 MG/3 ML* Use 2.5 mg via nebulizer ever* POTASSIUM, SODIUM PHOSPHATES * Take 1 Packet by mouth three * PANTOPRAZOLE 40 MG TABLET,DEL* Take 40 mg by mouth once asad* LOSARTAN 25 MG TABLET Take 25 mg by mouth once asad* CHOLECALCIFEROL (VITAMIN D3) * Take 50,000 Units by mouth on* ALENDRONATE 70 MG TABLET Take 70 mg by mouth once each* AMMONIUM LACTATE 12 % LOTION Apply to affected area as nee* IPRATROPIUM-ALBUTEROL 0.5 MG-* Inhale 3 mL as instructed cooper* ACETAMINOPHEN 500 MG TABLET Take 1,000 mg by mouth every * MEMANTINE 28 MG CAPSULE SPRIN* Take 1 capsule by mouth once * DONEPEZIL 5 MG TABLET Take 1 tablet by mouth daily * ISOSORBIDE MONONITRATE ER 30 * TAKE 1 TABLET EVERY DAY HYDRALAZINE 50 MG TABLET TAKE 1 TABLET THREE TIMES JOSH* Patient not taking: Reported on 12/09/2018 LISINOPRIL 20 MG TABLET Take 1 tablet by mouth once d* Patient not taking: Reported on 12/09/2018 METOLAZONE 2.5 MG TABLET Take 2.5 mg by mouth every 48* PREDNISONE 10 MG TABLET Take 1 tablet by mouth once d* SPIRONOLACTONE 25 MG TABLET Take 0.5 tablets by mouth onc* FUROSEMIDE 40 MG TABLET Take 1 1/2 tablets (60mg) twi* DIGOXIN 62.5 MCG TABLET Take 1 tablet by mouth once d* Patient not taking: Reported on 12/09/2018 HYDRALAZINE 50 MG TABLET Take 0.5 tablets by mouth thr* Patient not taking: Reported on 12/09/2018 NYSTATIN 100,000 UNIT/ML ORAL* Take 5 mL by mouth three time* CARVEDILOL 25 MG TABLET TAKE 1 TABLET BY MOUTH TWICE * ELIQUIS 5 MG TABLET TAKE 1 TABLET BY MOUTH TWICE * NITROFURANTOIN MONOHYDRATE AND * Take 1 capsule by mouth once * Patient not taking: Reported on 12/09/2018 FINASTERIDE 5 MG TABLET Take 1 tablet by mouth once d* BIPAP LEVALBUTEROL 0.63 MG/3 ML BIBIANA* Use 3 mL via nebulizer every * Patient not taking: Reported on 12/09/2018 NITROGLYCERIN 0.4 MG SUBLINGU* Dissolve 1 tablet under the t* COMPOUNDED PRESCRIPTION [facility] for [facility]* COMPOUNDED PRESCRIPTION Oxygen 3 liters CYANOCOBALAMIN (VIT B-12) 1,0* Dissolve 1 tablet under the t* Problem List As Of Date 12/14/2018 Noted Resolved Hypertension [I10] INVALID FOR* Lumbar disc disease [M51.9] INVALID FOR* Cervical disc disease [M50.90] INVALID FOR* COPD (chronic obstructive pulmonary disease) [J*INVALID FOR* BPH (benign prostatic hyperplasia) [N40.0] INVALID FOR* Urethral stricture [IUP2889] INVALID FOR* Difficulty voiding [R39.198] INVALID FOR* Frequency of urination [R35.0] INVALID FOR* Urinary retention [R33.9] INVALID FOR* Anemia [D64.9] INVALID FOR* Tobacco abuse [Z72.0] INVALID FOR* Nonischemic cardiomyopathy (HCC) [I42.8] INVALID FOR* Atrial fibrillation with rapid ventricular resp*INVALID FOR* AICD (automatic cardioverter/defibrillator) pre*INVALID FOR* Spontaneous pneumothorax [J93.83] INVALID FOR* Swallowing difficulty [R13.10] INVALID FOR* More... PETE treated with BiPAP [G47.33] INVALID FOR* More... Vascular dementia without behavioral disturbanc*INVALID FOR* Encounter Status:Closed by TRICIA SIEGEL on 12/14/18 PROGRESS Observed: 12/09/2018 Status: COMPLETED Source: [place] 10:47 AM [facility] REPOSITORY HNO ID: [id number] Author: Teofilo Bearden Service: (none) Author Type: Physician Type: Progress Notes Filed: 12/12/2018 7:54 AM Note Text: Hematology and Medical Oncology PATIENT NAME: Jimmy Butler. CLINIC NO: [id number]. ATTENDING PHYSICIAN: Teofilo Bearden MD. DATE OF SERVICE:12/09/2018. DIAGNOSIS: anemia of chronic disease, lymphopenia and chronic thrombocytopenia Consultation requested by Dr. Marisol Ingram for an opinion regarding anemia and thrombocytopenia. My final recommendations will be communicated back to the requesting physician by way of shared Medical record or letter to requesting physician via US mail. PERFORMANCE STATUS:50% HPI: 68-year-old gentleman with anemia of chronic disease, chronic thrombocytopenia and leukopenia who presented to the hospital recently because of severe dehydration and sepsis. He was treated for UTI. She also had a compression fracture after kyphoplasty several months ago. He also have vascular dementia. He had blood transfusion for hemoglobin of 7.0 Gm/dl last month. He also has history of ischemic cardiomyopathy with EF 20%, COPD on oxygen. During hospitalization his stool was Hemoccult negative. He continue on Eliquis for paroxysmal atrial fibrillation. He denies rectal bleeding or melena. Not taking aspirin or NSAIDs. Patient has fallen several times in the last 6 months, and mainly bedbound. Appetite is poor enough to 25-50% of his meals, 3 times daily. No best sore role decubitus ulcer. He requires total assist for his ADL. MEDICATIONS: Current Outpatient Prescriptions: amiodarone (PACERONE) 200 mg tablet Take 200 mg by mouth once daily. oxyCODONE IR (ROXICODONE) 5 mg immediate release tablet Take 5 mg by mouth every 8 hours as needed. albuterol (PROVENTIL) 2.5 mg/3 mL (0.083 %) nebulizer solution Use 2.5 mg via nebulizer every 2 hours as needed. potassium-sodium phosphates (PHOS-NAK) 280-160-250 mg pwpk Take 1 Packet by mouth three times daily. pantoprazole DR (PROTONIX) 40 mg tablet Take 40 mg by mouth once daily. losartan (COZAAR) 25 mg tablet Take 25 mg by mouth once daily. cholecalciferol, Vitamin D3, (D3-50 CHOLECALCIFEROL) 50,000 unit cap capsule Take 50,000 Units by mouth once each week. alendronate (FOSAMAX) 70 mg tablet Take 70 mg by mouth once each week. ammonium lactate (LAC-HYDRIN) 12 % lotion Apply to affected area as needed. ipratropium-albuterol (DUONEB) 0.5 mg-3 mg(2.5 mg base)/3 mL nebu Inhale 3 mL as instructed every 6 hours as needed. acetaminophen (TYLENOL EXTRA STRENGTH) 500 mg tablet Take 1,000 mg by mouth every 8 hours as needed. memantine XR (NAMENDA XR) 28 mg CSpX Take 1 capsule by mouth once daily. donepezil (ARICEPT) 5 mg tablet Take 1 tablet by mouth daily at bedtime. isosorbide mononitrate ER (IMDUR) 30 mg 24 hr tablet TAKE 1 TABLET EVERY DAY predniSONE (DELTASONE) 10 mg tablet Take 1 tablet by mouth once daily. spironolactone (ALDACTONE) 25 mg tablet Take 0.5 tablets by mouth once daily. furosemide (LASIX) 40 mg tablet Take 1 1/2 tablets (60mg) twice daily nystatin (MYCOSTATIN) 100,000 unit/mL susp Take 5 mL by mouth three times daily. carvedilol (COREG) 25 mg tablet TAKE 1 TABLET BY MOUTH TWICE DAILY WITH MEALS ELIQUIS 5 mg tab(s) TAKE 1 TABLET BY MOUTH TWICE DAILY finasteride (PROSCAR) 5 mg tablet Take 1 tablet by mouth once daily. BIPAP nitroglycerin sublingual (NITROQUICK) 0.4 mg SL tablet Dissolve 1 tablet under the tongue as needed. FOR CHEST PAIN. IF NO RELIEF CALL 911 COMPOUNDED PRESCRIPTION Oxygen 3 liters Cyanocobalamin (VITAMIN B-12) 1,000 mcg subl Dissolve 1 tablet under the tongue once daily. hydrALAZINE (APRESOLINE) 50 mg tablet TAKE 1 TABLET THREE TIMES DAILY (Patient not taking: Reported on 12/09/2018) lisinopril (ZESTRIL, PRINIVIL) 20 mg tablet Take 1 tablet by mouth once daily. (Patient not taking: Reported on 12/09/2018) metOLAzone (ZAROXOLYN) 2.5 mg tablet Take 2.5 mg by mouth every 48 hours. digoxin 62.5 mcg tab Take 1 tablet by mouth once daily. (Patient not taking: Reported on 12/09/2018 ) hydrALAZINE (APRESOLINE) 50 mg tablet Take 0.5 tablets by mouth three times daily. (Patient not taking: Reported on 12/09/2018 ) nitrofurantoin monohydrate and macrocrystal (MACROBID) 100 mg capsule Take 1 capsule by mouth once daily. (Patient not taking: Reported on 12/09/2018 ) levalbuterol (XOPENEX) 0.63 mg/3 mL nebulizer solution Use 3 mL via nebulizer every 6 hours as needed for Wheezing/Shortness of Breath (for wheezing). Dx: J44.9 (Patient not taking: Reported on 12/09/2018 ) COMPOUNDED PRESCRIPTION [facility] for home BP monitoring No current facility-administered medications for this visit. . ALLERGIES: ALLERGIES Allergen Reactions - Asa [Aspirin] GI Upset - Asa [Salicylates] GI Upset . 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 Upper lobe nodular infiltrates. - Unspecified essential hypertension . PAST SURGICAL HISTORY: PAST SURGICAL HISTORY Procedure Laterality Date - INSERTION OF CHEST TUBE 06/19/16 left - KYPHOPLASTY 1 VERTEBRAL BODY-LUMBAR 11/04/2018 - LAMINECT W/EXPLOR LUMBAR ST jaylon Hess. - PAST SURGICAL HISTORY OF cervical fusion 2x. - PAST SURGICAL HISTORY OF torn lig. knee, left - PAST SURGICAL HISTORY OF carpel tunnel L side - PAST SURGICAL HISTORY OF ~ brain aneurysms, repaired before rupture. - PAST SURGICAL HISTORY OF pacemaker,defibrillator - TOTAL KNEE REPLACEMENT left knee - TRANSURETHRAL ELEC-SURG PROSTATECTOM ~2009 x2. Still symptomatic. . FAMILY HISTORY: FAMILY HISTORY Problem Relation Age of Onset - Hypertension Mother - Emphysema Father - Cancer Brother lung - COPD Sister - No Known Problems Sister . 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 Social History Main Topics Smoking status: Former Smoker Packs/day: 1.00 Years: 50.00 Types: Cigarettes Start date: 1964 Quit date: 10/22/2018 Smokeless tobacco: Never Used Alcohol use: Yes Comment: Infrequent beer. 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 Dog. Birds. PALLIATIVE MEDICINE PALLIATIVE PERFORMANCE SCALE Palliative Performance Scale % (PPS) 30-50 (2.5) Oral Intake Moderately reduced (> mouthfuls) (1.0) Edema Absent (0) Dyspnea at Rest Absent (0) Delirium Absent (0) Palliative Prognostic Index (PPI) Total Score 3.5 Note: The scores from each prognostic domain are added. A score of 0 to 2.0 was associated with a median survival of 90 days; score of 2.1 to 4.0 is 61 days, and score of >4.0 is 12 days. PHYSICAL EXAMINATION: 68-year-old thin with muscle wasting chronically ill gentleman. BP 112/80 Pulse 95 Temp (Src) 97.9 (Oral) Ht 5' 9.685[verified by Antoinette Alegre LPN[ (1.77m) Wt 145 lb 8 oz (66.0kg) BMI 21.07 kg/(m2). HEENT: Head is normocephalic, atraumatic. Sclerae white, conjunctivae pink. PEERL. EOMs are intact. Oropharynx is benign. Complexion PALE, anicteric Neck: supple + JVD, no thyromegaly LYMPHATICS: There is no palpable adenopathy in the neck, supraclavicular region, axillae, or groin. LUNGS: Lungs are clear to percussion and auscultation. HEART: Heart is normal with grade 1/6 systolic murmurs, gallops, or rubs. + pacemaker / defibrillator ABDOMEN: Soft and nontender without organomegaly. No masses can be palpated. EXTREMITIES: Are trace edema. NEUROLOGIC: Exam is physiologic LABORATORY DATA: Component Latest Ref Rng AND Units 12/09/2018 WBC, [place] 3.70 - 11.00 k/uL 3.14 (L) RBC, [place] 4.20 - 6.00 m/uL 3.05 (L) Hemoglobin, [place] 13.0 - 17.0 g/dL 8.4 (L) Hematocrit, [place] 39.0 - 51.0 % 29.4 (L) MCV, [place] 80.0 - 100.0 fL 96.4 MCH, [place] 26.0 - 34.0 pg 27.5 MCHC, [place] 30.5 - 36.0 g/dL 28.6 (L) RDW, [place] 11.5 - 15.0 % 20.2 (H) Platelet Cnt, [place] 150 - 400 k/uL 125 (L) MPV, [place] 9.0 - 12.7 fL 9.1 Comment, CBC Result checked and verified Neut%, [place] % 78.6 Lymp%, [place] % 9.9 [place]%, [place] % 10.2 Eos%, [place] % 1.0 Baso%, [place] % 0.3 Abs Neut, [place] 1.45 - 7.50 k/uL 2.47 Abs Lymp, [place] 1.00 - 4.00 k/uL 0.31 (L) Abs [place], [place] <0.87 k/uL 0.32 Abs Eos, [place] <0.46 k/uL 0.03 Abs Baso, [place] <0.11 k/uL <0.03 Component Latest Ref Rng AND Units 12/09/2018 Iron 41 - 186 ug/dL 95 TIBC 232 - 386 ug/dL 344 Transferrin Saturation 15 - 57 % 28 Retic % 0.4 - 2.0 % 3.3 (H) Abs Retic 0.0180 - 0.1000 M/uL 0.100 Ferritin 30.3 - 565.7 ng/mL 200.6 Folate >4.7 ng/mL >20.0 Vitamin B12 232 - 1,245 pg/mL >2,000 (H) Component Latest Ref Rng AND Units 12/09/2018 Hep C Antibody IA Negative Negative JULIO INDEX: patients with dementia Total score = 20.5 6 months Mortality ( 49% - 62% ) ASSESSMENT: 68-year-old gentleman with multiple comorbidity including vascular dementia, ischemic cardiomyopathy, COPD on oxygen, severe protein malnutrition with anorexia. Patient has anemia of chronic disease. He has chronic leukopenia and thrombocytopenia which has not changed in the last 5 years. However, he has required blood transfusion recently and chronic anticoagulation could increase his risk for bleeding and requirement for blood transfusion. PLAN: - anemia panel and hepatitis C serology ordered today. - Check stool for Hemoccult x 3; if stool was positive for occult blood, then stop ELIQUIS - Followed with cardiology regarding long-term anticoagulation therapy as well as inactivating his defibrillator. - I recommend supportive blood transfusion only for hemoglobin < 8.0 gm/dl or for symptom of anemia. - He is being seen in follow-up by palliative care next week. I will [facility]. 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 I spent 60 minutes in the visit, with more than 50% of the total [id number] time of the visit in counseling / coordination of care. The patient and family were allowed enough time to ask questions. All questions were answered to their satisfaction. Patient and family verbalized understanding of treatment plan and agreed to follow- up with PCP and palliative medicine. Teofilo Bearden MD. ELECTRONICALLY SIGNED Cc: Dr. Sally Pedro CNP - [facility] PROGRESS Observed: 12/09/2018 Status: COMPLETED Source: [place] 10:23 AM [facility] REPOSITORY HNO ID: [id number] Author: Robbin Clarke (Rn) Service: (none) Author Type: Registered Nurse Type: Progress Notes Filed: 12/09/2018 10:25 AM Note Text: PRIMARY CARE COORDINATION FOLLOW-UP NOTE Provider Action/FYI Noted, Thank You Patient identified by name and date of . YES Signature Tricia Siegel RN December 09, 2018 CNOVSP Observed: 12/09/2018 Status: COMPLETED Source: [place] 10:00 AM [facility] REPOSITORY Visit (SP) Office ([facility]) JIMMY BUTLER ([id number]) 1950 M Date Time Provider Department 12/09/18 10:00 AM TEOFILO BEARDEN During your visit today, we recorded the following information about you: Temperature Pulse Blood pressure Weight 97.9 degrees 95/minute 112/80 66 kg Height 1.77 m Marylou Rahman LPN 12/09/2018 10:35 AM Signed New patient. Dx possible MDS d/t anemia. Marylou Bearden MD 12/09/2018 10:41 AM Signed monitor CBC and transfuse if indicated for symptoms Or Hgb < 8.0 gm/dl Stop Eliquis if stool are Hemoccult positive Teofilo Beraden MD 12/12/2018 7:54 AM Signed Hematology and Medical Oncology PATIENT NAME: Jimmy Butler. CLINIC NO: [id number]. ATTENDING PHYSICIAN: Teofilo Bearden MD. DATE OF SERVICE:12/09/2018. DIAGNOSIS: anemia of chronic disease, lymphopenia and chronic thrombocytopenia Consultation requested by Dr. Marisol Ingram for an opinion regarding anemia and thrombocytopenia. My final recommendations will be communicated back to the requesting physician by way of shared Medical record or letter to requesting physician via US mail. PERFORMANCE STATUS:50% HPI: 68-year-old gentleman with anemia of chronic disease, chronic thrombocytopenia and leukopenia who presented to the hospital recently because of severe dehydration and sepsis. He was treated for UTI. She also had a compression fracture after kyphoplasty several months ago. He also have vascular dementia. He had blood transfusion for hemoglobin of 7.0 Gm/dl last month. He also has history of ischemic cardiomyopathy with EF 20%, COPD on oxygen. During hospitalization his stool was Hemoccult negative. He continue on Eliquis for paroxysmal atrial fibrillation. He denies rectal bleeding or melena. Not taking aspirin or NSAIDs. Patient has fallen several times in the last 6 months, and mainly bedbound. Appetite is poor enough to 25- 50% of his meals, 3 times daily. No best sore role decubitus ulcer. He requires total assist for his ADL. MEDICATIONS: Current Outpatient Prescriptions: amiodarone (PACERONE) 200 mg tablet Take 200 mg by mouth once daily. oxyCODONE IR (ROXICODONE) 5 mg immediate release tablet Take 5 mg by mouth every 8 hours as needed. albuterol (PROVENTIL) 2.5 mg/3 mL (0.083 %) nebulizer solution Use 2.5 mg via nebulizer every 2 hours as needed. potassium-sodium phosphates (PHOS-NAK) 280-160-250 mg pwpk Take 1 Packet by mouth three times daily. pantoprazole DR (PROTONIX) 40 mg tablet Take 40 mg by mouth once daily. losartan (COZAAR) 25 mg tablet Take 25 mg by mouth once daily. cholecalciferol, Vitamin D3, (D3-50 CHOLECALCIFEROL) 50,000 unit cap capsule Take 50,000 Units by mouth once each week. alendronate (FOSAMAX) 70 mg tablet Take 70 mg by mouth once each week. ammonium lactate (LAC-HYDRIN) 12 % lotion Apply to affected area as needed. ipratropium-albuterol (DUONEB) 0.5 mg-3 mg(2.5 mg base)/3 mL nebu Inhale 3 mL as instructed every 6 hours as needed. acetaminophen (TYLENOL EXTRA STRENGTH) 500 mg tablet Take 1,000 mg by mouth every 8 hours as needed. memantine XR (NAMENDA XR) 28 mg CSpX Take 1 capsule by mouth once daily. donepezil (ARICEPT) 5 mg tablet Take 1 tablet by mouth daily at bedtime. isosorbide mononitrate ER (IMDUR) 30 mg 24 hr tablet TAKE 1 TABLET EVERY DAY predniSONE (DELTASONE) 10 mg tablet Take 1 tablet by mouth once daily. spironolactone (ALDACTONE) 25 mg tablet Take 0.5 tablets by mouth once daily. furosemide (LASIX) 40 mg tablet Take 1 1/2 tablets (60mg) twice daily nystatin (MYCOSTATIN) 100,000 unit/mL susp Take 5 mL by mouth three times daily. carvedilol (COREG) 25 mg tablet TAKE 1 TABLET BY MOUTH TWICE DAILY WITH MEALS ELIQUIS 5 mg tab(s) TAKE 1 TABLET BY MOUTH TWICE DAILY finasteride (PROSCAR) 5 mg tablet Take 1 tablet by mouth once daily. BIPAP nitroglycerin sublingual (NITROQUICK) 0.4 mg SL tablet Dissolve 1 tablet under the tongue as needed. FOR CHEST PAIN. IF NO RELIEF CALL 911 COMPOUNDED PRESCRIPTION Oxygen 3 liters Cyanocobalamin (VITAMIN B-12) 1,000 mcg subl Dissolve 1 tablet under the tongue once daily. hydrALAZINE (APRESOLINE) 50 mg tablet TAKE 1 TABLET THREE TIMES DAILY (Patient not taking: Reported on 12/09/2018) lisinopril (ZESTRIL, PRINIVIL) 20 mg tablet Take 1 tablet by mouth once daily. (Patient not taking: Reported on 12/09/2018) metOLAzone (ZAROXOLYN) 2.5 mg tablet Take 2.5 mg by mouth every 48 hours. digoxin 62.5 mcg tab Take 1 tablet by mouth once daily. (Patient not taking: Reported on 12/09/2018 ) hydrALAZINE (APRESOLINE) 50 mg tablet Take 0.5 tablets by mouth three times daily. (Patient not taking: Reported on 12/09/2018 ) nitrofurantoin monohydrate and macrocrystal (MACROBID) 100 mg capsule Take 1 capsule by mouth once daily. (Patient not taking: Reported on 12/09/2018 ) levalbuterol (XOPENEX) 0.63 mg/3 mL nebulizer solution Use 3 mL via nebulizer every 6 hours as needed for Wheezing/Shortness of Breath (for wheezing). Dx: J44.9 (Patient not taking: Reported on 12/09/2018 ) COMPOUNDED PRESCRIPTION [facility] for home BP monitoring No current facility-administered medications for this visit. . ALLERGIES: ALLERGIES Allergen Reactions - Asa [Aspirin] GI Upset - Asa [Salicylates] GI Upset . 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 Upper lobe nodular infiltrates. - Unspecified essential hypertension . PAST SURGICAL HISTORY: PAST SURGICAL HISTORY Procedure Laterality Date - INSERTION OF CHEST TUBE 06/19/16 left - KYPHOPLASTY 1 VERTEBRAL BODY-LUMBAR 11/04/2018 - LAMINECT W/EXPLOR LUMBAR ST jaylon Hess. - PAST SURGICAL HISTORY OF cervical fusion 2x. - PAST SURGICAL HISTORY OF torn lig. knee, left - PAST SURGICAL HISTORY OF carpel tunnel L side - PAST SURGICAL HISTORY OF ~ brain aneurysms, repaired before rupture. - PAST SURGICAL HISTORY OF pacemaker,defibrillator - TOTAL KNEE REPLACEMENT left knee - TRANSURETHRAL ELEC-SURG PROSTATECTOM ~2009 x2. Still symptomatic. . FAMILY HISTORY: FAMILY HISTORY Problem Relation Age of Onset - Hypertension Mother - Emphysema Father - Cancer Brother lung - COPD Sister - No Known Problems Sister . 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 Social History Main Topics Smoking status: Former Smoker Packs/day: 1.00 Years: 50.00 Types: Cigarettes Start date: 1964 Quit date: 10/22/2018 Smokeless tobacco: Never Used Alcohol use: Yes Comment: Infrequent beer. 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 Dog. Birds. PALLIATIVE MEDICINE PALLIATIVE PERFORMANCE SCALE Palliative Performance Scale % (PPS) 30-50 (2.5) Oral Intake Moderately reduced (> mouthfuls) (1.0) Edema Absent (0) Dyspnea at Rest Absent (0) Delirium Absent (0) Palliative Prognostic Index (PPI) Total Score 3.5 Note: The scores from each prognostic domain are added. A score of 0 to 2.0 was associated with a median survival of 90 days; score of 2.1 to 4.0 is 61 days, and score of >4.0 is 12 days. PHYSICAL EXAMINATION: 68-year-old thin with muscle wasting chronically ill gentleman. BP 112/80 Pulse 95 Temp (Src) 97.9 (Oral) Ht 5' 9.685[verified by Antoinette Alegre LPN[ (1.77m) Wt 145 lb 8 oz (66.0kg) BMI 21.07 kg/(m2). HEENT: Head is normocephalic, atraumatic. Sclerae white, conjunctivae pink. PEERL. EOMs are intact. Oropharynx is benign. Complexion PALE, anicteric Neck: supple + JVD, no thyromegaly LYMPHATICS: There is no palpable adenopathy in the neck, supraclavicular region, axillae, or groin. LUNGS: Lungs are clear to percussion and auscultation. HEART: Heart is normal with grade 1/6 systolic murmurs, gallops, or rubs. + pacemaker / defibrillator ABDOMEN: Soft and nontender without organomegaly. No masses can be palpated. EXTREMITIES: Are trace edema. NEUROLOGIC: Exam is physiologic LABORATORY DATA: Component Latest Ref Rng AND Units 12/09/2018 WBC, [place] 3.70 - 11.00 k/uL 3.14 (L) RBC, [place] 4.20 - 6.00 m/uL 3.05 (L) Hemoglobin, [place] 13.0 - 17.0 g/dL 8.4 (L) Hematocrit, [place] 39.0 - 51.0 % 29.4 (L) MCV, [place] 80.0 - 100.0 fL 96.4 MCH, [place] 26.0 - 34.0 pg 27.5 MCHC, [place] 30.5 - 36.0 g/dL 28.6 (L) RDW, [place] 11.5 - 15.0 % 20.2 (H) Platelet Cnt, [place] 150 - 400 k/uL 125 (L) MPV, [place] 9.0 - 12.7 fL 9.1 Comment, CBC Result checked and verified Neut%, [place] % 78.6 Lymp%, [place] % 9.9 [place]%, [place] % 10.2 Eos%, [place] % 1.0 Baso%, [place] % 0.3 Abs Neut, [place] 1.45 - 7.50 k/uL 2.47 Abs Lymp, [place] 1.00 - 4.00 k/uL 0.31 (L) Abs [place], [place] <0.87 k/uL 0.32 Abs Eos, [place] <0.46 k/uL 0.03 Abs Baso, [place] <0.11 k/uL <0.03 Component Latest Ref Rng AND Units 12/09/2018 Iron 41 - 186 ug/dL 95 TIBC 232 - 386 ug/dL 344 Transferrin Saturation 15 - 57 % 28 Retic % 0.4 - 2.0 % 3.3 (H) Abs Retic 0.0180 - 0.1000 M/uL 0.100 Ferritin 30.3 - 565.7 ng/mL 200.6 Folate >4.7 ng/mL >20.0 Vitamin B12 232 - 1,245 pg/mL >2,000 (H) Component Latest Ref Rng AND Units 12/09/2018 Hep C Antibody IA Negative Negative JULIO INDEX: patients with dementia Total score = 20.5 6 months Mortality ( 49% - 62% ) ASSESSMENT: 68-year-old gentleman with multiple comorbidity including vascular dementia, ischemic cardiomyopathy, COPD on oxygen, severe protein malnutrition with anorexia. Patient has anemia of chronic disease. He has chronic leukopenia and thrombocytopenia which has not changed in the last 5 years. However, he has required blood transfusion recently and chronic anticoagulation could increase his risk for bleeding and requirement for blood transfusion. PLAN: - anemia panel and hepatitis C serology ordered today. - Check stool for Hemoccult x 3; if stool was positive for occult blood, then stop ELIQUIS - Followed with cardiology regarding long-term anticoagulation therapy as well as inactivating his defibrillator. - I recommend supportive blood transfusion only for hemoglobin < 8.0 gm/dl or for symptom of anemia. - He is being seen in follow-up by palliative care next week. I will forward my report to [facility]. 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 I spent 60 minutes in the visit, with more than 50% of the total [id number] time of the visit in counseling / coordination of care. The patient and family were allowed enough time to ask questions. All questions were answered to their satisfaction. Patient and family verbalized understanding of treatment plan and agreed to follow-up with PCP and palliative medicine. Teofilo Bearden MD. ELECTRONICALLY SIGNED Cc: Dr. Sally Pedro, [facility] - [facility] hospice Referring Provider: MARISOL INGRAM [[id number]] Allergies As of Date: 12/09/2018 Noted Allergy Reaction ASA (ASPIRIN) 07/19/2017 8 - GI Upset ASA (SALICYLATES) 01/29/2006 8 - GI Upset Date Reviewed: 12/09/2018 Reviewed by: Marylou Rahman LPN - Fully Assessed Reason for Visit: New Patient [172] Primary Visit Diagnosis:Anemia, unspecified type [D64.9] Other Visit Diagnoses:Nonischemic cardiomyopathy (HCC) [I42.8] Chronic obstructive pulmonary disease, unspecified COPD type (HCC) [J44.9] AICD (automatic cardioverter/defibrillator) present [Z95.810] Thrombocytopenia (HCC) [D69.6] Vascular dementia without behavioral disturbance [F01.50] Lymphopenia [D72.810] Order(s):FERRITIN BLD [SQFERR] Order #: [id number] FUTURE FOLATE SERUM [SQSERFOL] Order #: [id number] FUTURE METHYLMALONIC ACID [SQMMA] Order #: [id number] FUTURE RETIC COUNT [SQRETIC] Order #: [id number] FUTURE VITAMIN B12 BLOOD [SQB12] Order #: [id number] FUTURE VITAMIN B6/PYRIDOXIN [SQVITB6] Order #: [id number] FUTURE ERYTHROPOIETIN/EPO [SQEPO] Order #: [id number] FUTURE IRON + TIBC [SQIRON] Order #: [id number] FUTURE HEP C AB IA BLOOD [SQAHCV] Order #: [id number] FUTURE Level of Service: NEW PATIENT VISIT LEVEL 5 [[id number]] LOS history recorded Follow-up and Disposition History Recorded Prescriptions as of 12/09/2018 Sig: AMIODARONE 200 MG TABLET Take 200 mg by mouth once josh* OXYCODONE 5 MG TABLET Take 5 mg by mouth every 8 ho* ALBUTEROL SULFATE 2.5 MG/3 ML* Use 2.5 mg via nebulizer ever* POTASSIUM, SODIUM PHOSPHATES * Take 1 Packet by mouth three * PANTOPRAZOLE 40 MG TABLET,DEL* Take 40 mg by mouth once asad* LOSARTAN 25 MG TABLET Take 25 mg by mouth once asad* CHOLECALCIFEROL (VITAMIN D3) * Take 50,000 Units by mouth on* ALENDRONATE 70 MG TABLET Take 70 mg by mouth once each* AMMONIUM LACTATE 12 % LOTION Apply to affected area as nee* IPRATROPIUM-ALBUTEROL 0.5 MG-* Inhale 3 mL as instructed cooper* ACETAMINOPHEN 500 MG TABLET Take 1,000 mg by mouth every * MEMANTINE 28 MG CAPSULE SPRIN* Take 1 capsule by mouth once * DONEPEZIL 5 MG TABLET Take 1 tablet by mouth daily * ISOSORBIDE MONONITRATE ER 30 * TAKE 1 TABLET EVERY DAY PREDNISONE 10 MG TABLET Take 1 tablet by mouth once d* SPIRONOLACTONE 25 MG TABLET Take 0.5 tablets by mouth onc* FUROSEMIDE 40 MG TABLET Take 1 1/2 tablets (60mg) twi* NYSTATIN 100,000 UNIT/ML ORAL* Take 5 mL by mouth three time* CARVEDILOL 25 MG TABLET TAKE 1 TABLET BY MOUTH TWICE * ELIQUIS 5 MG TABLET TAKE 1 TABLET BY MOUTH TWICE * FINASTERIDE 5 MG TABLET Take 1 tablet by mouth once d* BIPAP NITROGLYCERIN 0.4 MG SUBLINGU* Dissolve 1 tablet under the t* COMPOUNDED PRESCRIPTION Oxygen 3 liters CYANOCOBALAMIN (VIT B-12) 1,0* Dissolve 1 tablet under the t* HYDRALAZINE 50 MG TABLET TAKE 1 TABLET THREE TIMES JOSH* Patient not taking: Reported on 12/09/2018 LISINOPRIL 20 MG TABLET Take 1 tablet by mouth once d* Patient not taking: Reported on 12/09/2018 METOLAZONE 2.5 MG TABLET Take 2.5 mg by mouth every 48* DIGOXIN 62.5 MCG TABLET Take 1 tablet by mouth once d* Patient not taking: Reported on 12/09/2018 HYDRALAZINE 50 MG TABLET Take 0.5 tablets by mouth thr* Patient not taking: Reported on 12/09/2018 NITROFURANTOIN MONOHYDRATE AND * Take 1 capsule by mouth once * Patient not taking: Reported on 12/09/2018 LEVALBUTEROL 0.63 MG/3 ML BIBIANA* Use 3 mL via nebulizer every * Patient not taking: Reported on 12/09/2018 COMPOUNDED PRESCRIPTION [facility] for ho* Medication notes this encounter FUROSEMIDE 40 MG TABLET >> Marylou Rahman LPN 12/09/2018 10:23 AM >> MARYLOU RAHMAN LPN Dec 09, 2018 10:23 AM Taking 60 mg once a day ELIQUIS 5 MG TABLET >> Marylou Rahman LPN 12/09/2018 10:22 AM >> MARYLOU RAHMAN LPN Dec 09, 2018 10:22 AM Taking 2.5 mg twice a day HYDRALAZINE 50 MG TABLET >> Marylou Rahman LPN 12/09/2018 10:25 AM >> MARYLOU RAHMAN LPN [facility] Dec 09, 2018 10:25 AM discontinued LISINOPRIL 20 MG TABLET >> Marylou Carli ELLIOTT 12/09/2018 10:27 AM >> MARYLOU RAHMAN LPN [facility] Dec 09, 2018 10:27 AM discontinued METOLAZONE 2.5 MG TABLET >> Maryloulilo Rahamn LPN 12/09/2018 10:28 AM >> RAHMAN EARLMARYLOU WedDec 09, 2018 10:28 AM discontinued DIGOXIN 62.5 MCG TABLET >> Maryloulilo Rahman LPN 12/09/2018 10:21 AM >> RAHMAN HEAD WAITRESSMARYLOU Amaya [facility] Dec 09, 2018 10:21 AM Not taking HYDRALAZINE 50 MG TABLET >> Maryloulilo Rahman LPN 12/09/2018 10:25 AM >> MARYLOU RAHMAN LPN [facility] Dec 09, 2018 10:25 AM discontinued LEVALBUTEROL 0.63 MG/3 ML SOLUTION FOR NEBULIZATION >> Maryloulilo Rahman LPN 12/09/2018 10:26 AM >> RAHMAN HEAD WAITRESSMARYLOU Amaya [facility] Dec 09, 2018 10:26 AM discontinued Problem List As Of Date 12/09/2018 Noted Resolved Hypertension [I10] INVALID FOR* Lumbar disc disease [M51.9] INVALID FOR* Cervical disc disease [M50.90] INVALID FOR* COPD (chronic obstructive pulmonary disease) [J*INVALID FOR* BPH (benign prostatic hyperplasia) [N40.0] INVALID FOR* Urethral stricture [IRJ7975] INVALID FOR* Difficulty voiding [R39.198] INVALID FOR* Frequency of urination [R35.0] INVALID FOR* Urinary retention [R33.9] INVALID FOR* Anemia [D64.9] INVALID FOR* Tobacco abuse [Z72.0] INVALID FOR* Nonischemic cardiomyopathy (HCC) [I42.8] INVALID FOR* Atrial fibrillation with rapid ventricular resp*INVALID FOR* AICD (automatic cardioverter/defibrillator) pre*INVALID FOR* Spontaneous pneumothorax [J93.83] INVALID FOR* Swallowing difficulty [R13.10] INVALID FOR* More... PETE treated with BiPAP [G47.33] INVALID FOR* More... Vascular dementia without behavioral disturbanc*INVALID FOR* Other instructions from your clinician: monitor CBC and transfuse if indicated for symptoms Or Hgb < 8.0 gm/dl Stop Eliquis if stool are Hemoccult positive Visit Notes: >> Marylou Carli ELLIOTT WedDec 09, 2018 10:15 AM Status: Signed New patient. Dx possible MDS d/t anemia. Marylou Carli ELLIOTT Encounter Status:Closed by TEOFILO BEARDEN MD on 12/12/18 IRON AND TIBC Collected: 12/09/2018 Status: F Source: [place] 9:55 AM [facility] REPOSITORY TYPE CODE TESTS RESULT OUT OF RANGE REFERENCE UNITS LAB IRN 41-186 ug/dL Iron 95 Result Comment: Results may be falsely increased due to interference by hemolysis. Suggest reorder as clinically indicated. LAB TIBC 232-386 ug/dL TIBC 344 LAB SAT 15-57 % Transferrin Saturatn 28 Performed By: #### IRON, RETIC, B12, SERFOL, FERR, AHCV, EPO, MMA #### [facility] [employer] [address] [place], [place] [address] RETICULOCYTE Collected: 12/09/2018 Status: F Source: [place] 9:55 AM [facility] REPOSITORY TYPE CODE TESTS RESULT OUT OF REFERENCE UNITS RANGE LAB RETC 0.4-2.0 % High Retic% 3.3 LAB ABRET 0.0180-0.1000 M/uL Abs Retic 0.100 Performed By: #### IRON, RETIC, B12, SERFOL, FERR, AHCV, EPO, MMA #### [facility] [employer] [address] [place], [place] [address] VITAMIN B12 Collected: 12/09/2018 Status: F Source: [place] 9:55 AM [facility] REPOSITORY TYPE CODE TESTS RESULT OUT OF REFERENCE UNITS RANGE LAB B12 232-1245 pg/mL High Vitamin B12 >2000 Performed By: #### IRON, RETIC, B12, SERFOL, FERR, AHCV, EPO, MMA #### [facility] [employer] [address] [place], [place] [address] FOLATE, SERUM Collected: 12/09/2018 Status: F Source: [place] 9:55 AM [facility] REPOSITORY TYPE CODE TESTS RESULT OUT OF REFERENCE UNITS RANGE LAB SERFOL >4.7 ng/mL Folate, >20.0 Serum Result Comment: A result of > 20 ng/mL is not necessarily indicative of a pathologic or treatable condition: it reflects a limitation of the test methodology. Assay reference range: 4.8 to 24.2 ng/mL. Suitable for detection of folate deficiency. Reference: Folate III (Folate III) [package insert V 2.0 Turkish]. [employer], [place], [place]: September 2015. Performed By: #### IRON, RETIC, B12, SERFOL, FERR, AHCV, EPO, MMA #### [facility] [address] [place] [address] FERRITIN Collected: 12/09/2018 Status: F Source: [place] 9:55 AM [facility] REPOSITORY TYPE CODE TESTS RESULT OUT OF REFERENCE UNITS RANGE LAB FERR 30.3-565.7 ng/mL Ferritin 200.6 Performed By: #### IRON, RETIC, B12, SERFOL, FERR, AHCV, EPO, MMA #### [place] [phone] HEPATITIS C AB IA Collected: 12/09/2018 Status: F Source: [place] 9:55 [facility] REPOSITORY TYPE CODE TESTS RESULT OUT OF REFERENCE UNITS RANGE LAB AHCV Negative Hepatitis C Ab Negative IA Performed By: #### IRON, RETIC, B12, SERFOL, FERR, AHCV, EPO, MMA #### [place] [id number] [place] [phone] EPO Collected: 12/09/2018 Status: F Source: [place] 9:55 [facility] REPOSITORY TYPE CODE TESTS RESULT OUT OF RANGE REFERENCE UNITS LAB EPO 2.6-18.5 mIU/mL High EPO 49.3 Result Comment: Test analyzed by the Ramirez DxI method. Performed By: #### IRON, RETIC, B12, SERFOL, FERR, AHCV, EPO, MMA #### [place] [phone] METHYLMALONIC ACID Collected: 12/09/2018 Status: F Source: [place] 9:55 [facility] REPOSITORY TYPE CODE TESTS RESULT OUT OF REFERENCE UNITS RANGE LAB MMA 79-376 nmol/L Methylmalonic Acid 215 Result Comment: This test was developed and its performance characteristics determined by [facility] ([facility]). It has not been cleared or approved by the FDA. [facility] is regulated under CLIA as qualified to perform high-complexity testing. This test is used for clinical purposes. It should not be regarded as investigational or for research. Performed By: #### IRON, RETIC, B12, SERFOL, FERR, AHCV, EPO, MMA #### [facility] [address] [place], [place] [address] [place] CBC AND DIFF Collected: 12/09/2018 Status: F Source: [place] 9:54 AM [facility] REPOSITORY TYPE CODE TESTS RESULT OUT OF REFERENCE UNITS RANGE LAB WWBC 3.70-11.00 k/uL Low [place] WBC 3.14 LAB WRBC 4.20-6.00 m/uL Low [place] RBC 3.05 LAB WHGB 13.0-17.0 g/dL Low [place] Hemoglobin 8.4 LAB WHCT 39.0-51.0 % Low [place] Hematocrit 29.4 LAB WMCV 80.0-100.0 fL [place] MCV 96.4 LAB WMCH 26.0-34.0 pg [place] MCH 27.5 LAB WMCHC 30.5-36.0 g/dL Low [place] MCHC 28.6 LAB WRDW 11.5-15.0 % [place] High RDW 20.2 LAB WPLT 150-400 k/uL Low [place] Platelet Cnt 125 LAB WMPV 9.0-12.7 fL [place] MPV 9.1 Result Comment: Test performed at: [facility], [address] [place] [address] Rd[address] [place] [address]. LAB CBCCOM Result Comment checked and verified LAB WNEUT % 78.6 [place] Neut% LAB WLYMP % 9.9 [place] Lymp% LAB WMONOC % 10.2 [place]% LAB WEOS % 1.0 [place] Eos% LAB WBASO % 0.3 [place] Baso% LAB WANEUT 1.45-7.5 k/uL 0 2.47 [place] Abs Neut LAB WALYMP 1.00-4.0 k/uL Low 0 0.31 [place] Abs Lymp LAB WAMONO <0.87 k/uL 0.32 [place] Abs [place] LAB WAEOS <0.46 k/uL 0.03 [place] Abs Eos LAB WABASO <0.11 k/uL <0.03 [place] Abs Baso STAFF REV W CBCDIF Collected: 12/09/2018 Status: F Source: [place] 9:53 AM [facility] REPOSITORY TYPE CODE TESTS RESULT OUT OF REFERENCE UNITS RANGE LAB WBC 3.70-11.00 k/uL WBC Low 3.00 LAB RBC 4.20-6.00 m/uL RBC Low 2.97 LAB HGB 13.0-17.0 g/dL Low Hemoglobin 8.2 LAB HCT 39.0-51.0 % Low Hematocrit 29.2 LAB MCV 80.0-100.0 fL MCV 98.3 LAB MCH 26.0-34.0 pG MCH 27.6 LAB MCHC 30.5-36.0 g/dL MCHC Low 28.1 LAB RDWCV 11.5-15.0 % RDW-CV High 20.4 LAB PLTCT 150-400 k/uL Platelet Low Count 127 LAB MPV 9.0-12.7 fL MPV 10.0 LAB ANEUT % Neut% 80.1 LAB AANEUT 1.45-7.50 k/uL Abs Neut 2.38 LAB ALYMP % Lymph% 10.3 LAB AALYMP 1.00-4.00 k/uL Abs Low Lymph 0.31 LAB AMONO % [place]% 9.3 LAB AAMONO <0.87 k/uL Abs [place] 0.28 LAB AEOS % Eosin% 0.3 LAB AAEOS <0.46 k/uL Abs Eosin <0.03 LAB ABASO % Baso% 0.0 LAB AABASO <0.11 k/uL Abs Baso <0.03 LAB AUNRBC 0 /100 WBC NRBCs 0.0 LAB ABNRBC <0.01 k/uL Absolute nRBC <0.01 LAB DTYP DTYPE Auto Diff LAB SREVW Staff Review SEE COMMENT Result Comment: The Staff Review on this sample was cancelled because the hematology analyzer did not flag any parameters as requiring manual review. If there is a specific clinical concern for which yo u would like a staff pathologist to review the blood smear, please call Lab Client Services within 28 days. Account Credited LAB SRPATH Pathologist The Staff Review on this sample was cancelled because the hematology analyzer did not flag any parameters as requiring manual review. If there is a specific clinical concern for which you would like a staff pathologist to review the blood smear, please call Lab Client Services within 28 days. Result Comment: Account Credited Performed By: #### STREV #### [facility] [address] [place] [id number] PROGRESS Observed: 12/07/2018 Status: COMPLETED Source: [place] 4:37 PM [facility] REPOSITORY HNO ID: [id number] Author: Sally Allison Service: (none) Author Type: Physician Type: Progress Notes Filed: 12/07/2018 4:37 PM Note Text: Noted Sally Allison MD PROGRESS Observed: 12/07/2018 Status: COMPLETED Source: [place] 12:27 PM [facility] REPOSITORY HNO ID: [id number] Author: Elyssa Menendez Service: (none) Author Type: Journalism Professor Type: Progress Notes Filed: 12/07/2018 4:37 PM Note Text: POPULATION HEALTH FIELD SERVICE REP QUICKNOTE Provider Action/FYI: Spoke to Mariah MANJULA at [facility]. Patient is still on the rehab unit. He is slightly Improved but not great. He will be there at least for a couple of weeks. With potential placement in intermediate care. I will follow up care next December 14. Elyssa Menendez MA Patient identified by name and .yes Elyssa Menendez MA CBC-COMPLETE BLOOD CNT Collected: 12/07/2018 Status: F Source: [place] NO DIFF 5:50 AM [facility] REPOSITORY Order Comment: ROOM 408 TYPE CODE TESTS RESULT OUT OF RANGE REFERENCE UNITS LAB L100.1000 4.4-11.0 K/mm3 Low WBC 3.2 LAB L100.1200 4.6-6.2 M/mm3 Low RBC 2.94 LAB L100.1300 13.0-16.5 g/dl Low HGB 8.0 LAB L100.1400 40-54 % Low HCT 28.7 LAB L100.1500 80-94 fL High MCV 97.6 LAB L100.1600 27.0-32.0 pg Normal MCH 27.2 LAB L100.1700 32-36 g/gl Low MCHC 27.9 LAB L100.1810 11.6-14.6 % High RDW CV 20.1 LAB L100.1820 35.1-43.9 fl High RDW SD 68.1 LAB L100.1900 150-450 K/mm3 Low PLT 131 LAB L100.2000 6.2-12.0 fl Normal MPV 9.2 Performed By: #### L100.0500, L100.4500 #### [facility] [address] [place], [address] DIFFERENTIAL COMMENT Collected: 12/07/2018 Status: F Source: [place] 5:50 AM [facility] REPOSITORY Order Comment: ROOM 408 TYPE CODE TESTS RESULT OUT OF RANGE REFERENCE UNITS LAB L100.4500 Normal SMEAR COMMENT COMMENT Result Comment: SLIDE SCANNED - 1+ ANISO. Performed By: #### L100.0500, L100.4500 #### [facility] [address] [place], [address] BASIC METABOLIC Collected: 12/07/2018 Status: F Source: [place] PROFILE (BMP) 5:50 AM [facility] REPOSITORY Order Comment: ROOM 408 TYPE CODE TESTS RESULT OUT OF RANGE REFERENCE UNITS LAB L501.0100 74-106 mg/dL Normal GLU 78 Result Comment: Please note revised GLUCOSE reference range effective 2017. LAB L501.1000 7-18 mg/dL High BUN 28 LAB L501.1100 0.70-1.30 mg/dL Normal CREAT,SERUM 1.16 Result Comment: The validity of the calculated GFR AND GFRAA in patients over 70 years has not been determined. Clinical correlation is essential. LAB L501.1110 >60 mL/min Normal EST GFR 66 Result Comment: Non- GFR Calc LAB L501.1115 >60 mL/min Normal EST GFR - AA 80 Result Comment: GFR Calc LAB L501.1300 10-20 RATIO High BUN/CRE 24.1 LAB L501.2200 8.5-10.1 mg/dL Low CA 8.3 LAB L501.5300 136-145 mmol/L NA Normal 143 LAB L501.5600 3.5-5.1 mmol/L K Normal 4.6 LAB L501.5900 98-107 mmol/L CL Normal 99 LAB L501.6100 21.0-32.0 mmol/L High CO2 42.0 LAB L501.6200 5-15 Low GAP 2 Performed By: #### L500.2500 #### [facility] [address] [place], [address] CNPTOUTREACH Observed: 12/07/2018 Status: COMPLETED Source: [place] 12:00 AM [facility] REPOSITORY Patient Outreach (FPWADS) JIMMY BUTLER ([id number]) 1950 M Date Time Provider Department 12/07/18 ELSYSA MENENDEZ) [place] During your visit today, we recorded the following information about you: Elyssa Menendez MA 12/07/2018 4:37 PM Signed [facility] FIELD SERVICE REP [place] Provider Action/FYI: Spoke to Mariah FAIR at [facility]. Patient is still on the rehab unit. He is slightly Improved but not great. He will be there at least for a couple of weeks. With potential placement in intermediate care. I will follow up care next December 14. Elyssa Menendez MA Patient identified by name and .yes KULDEEP Sanchez MD 12/07/2018 4:37 PM Signed Noted MD Tricia Murray RN 12/09/2018 10:25 AM Signed PRIMARY CARE COORDINATION FOLLOW-UP NOTE Provider Action/FYI Noted, Thank You Patient identified by name and date of . YES Signature Tricia Siegel RN December 09, 2018 Allergies As of Date: 12/07/2018 Noted Allergy Reaction ASA (ASPIRIN) 07/19/2017 8 - GI Upset ASA (SALICYLATES) 01/29/2006 8 - GI Upset Date Reviewed: 10/21/2018 Reviewed by: Desmond Romero Jr. - Fully Assessed Reason for Visit: PHMA Monitoring [3812] [facility] [3612] Reason For Visit History Recorded Prescriptions as of 12/07/2018 Sig: MEMANTINE 28 MG CAPSULE SPRIN* Take 1 capsule by mouth once * DONEPEZIL 5 MG TABLET Take 1 tablet by mouth daily * ISOSORBIDE MONONITRATE ER 30 * TAKE 1 TABLET EVERY DAY HYDRALAZINE 50 MG TABLET TAKE 1 TABLET THREE TIMES JOSH* Patient not taking: Reported on 12/09/2018 LISINOPRIL 20 MG TABLET Take 1 tablet by mouth once d* Patient not taking: Reported on 12/09/2018 METOLAZONE 2.5 MG TABLET Take 2.5 mg by mouth every 48* PREDNISONE 10 MG TABLET Take 1 tablet by mouth once d* SPIRONOLACTONE 25 MG TABLET Take 0.5 tablets by mouth onc* FUROSEMIDE 40 MG TABLET Take 1 1/2 tablets (60mg) twi* DIGOXIN 62.5 MCG TABLET Take 1 tablet by mouth once d* Patient not taking: Reported on 12/09/2018 HYDRALAZINE 50 MG TABLET Take 0.5 tablets by mouth thr* Patient not taking: Reported on 12/09/2018 NYSTATIN 100,000 UNIT/ML ORAL* Take 5 mL by mouth three time* CARVEDILOL 25 MG TABLET TAKE 1 TABLET BY MOUTH TWICE * ELIQUIS 5 MG TABLET TAKE 1 TABLET BY MOUTH TWICE * NITROFURANTOIN MONOHYDRATE AND * Take 1 capsule by mouth once * Patient not taking: Reported on 12/09/2018 FINASTERIDE 5 MG TABLET Take 1 tablet by mouth once d* BIPAP LEVALBUTEROL 0.63 MG/3 ML BIBIANA* Use 3 mL via nebulizer every * Patient not taking: Reported on 12/09/2018 NITROGLYCERIN 0.4 MG SUBLINGU* Dissolve 1 tablet under the t* COMPOUNDED PRESCRIPTION [facility]* COMPOUNDED PRESCRIPTION Oxygen 3 liters CYANOCOBALAMIN (VIT B-12) 1,0* Dissolve 1 tablet under the t* Problem List As Of Date 12/07/2018 Noted Resolved Hypertension [I10] INVALID FOR* Lumbar disc disease [M51.9] INVALID FOR* Cervical disc disease [M50.90] INVALID FOR* COPD (chronic obstructive pulmonary disease) [J*INVALID FOR* BPH (benign prostatic hyperplasia) [N40.0] INVALID FOR* Urethral stricture [JBG7292] INVALID FOR* Difficulty voiding [R39.198] INVALID FOR* Frequency of urination [R35.0] INVALID FOR* Urinary retention [R33.9] INVALID FOR* Anemia [D64.9] INVALID FOR* Tobacco abuse [Z72.0] INVALID FOR* Nonischemic cardiomyopathy (HCC) [I42.8] INVALID FOR* Atrial fibrillation with rapid ventricular resp*INVALID FOR* AICD (automatic cardioverter/defibrillator) pre*INVALID FOR* Spontaneous pneumothorax [J93.83] INVALID FOR* Swallowing difficulty [R13.10] INVALID FOR* More... PETE treated with BiPAP [G47.33] INVALID FOR* More... Encounter Status:Closed by SALLY ALLISON MD on 12/07/18 DISCHARGE SUMMARY Observed: 12/05/2018 Status: F Source: [place] 2:08 PM [facility] REPOSITORY [facility] Medical Records Department [address] [place] [id number] Discharge Summary 11/27/18 1521 MR#: [id number] Acct: [id number] Name: JIMMY BUTLER Rep #: [id number] : 1950 68 From: Kerri Quintanilla DO PCP: Sally Allison MD Status: DIS IN Y Location: [place] [address]1 ADDENDUM by Theresa Quintanilla on 12/05/18 at 1408 Code Visit The discharge diagnoses should include severe malnutrition which complicates immune function, care and recovery. 12/05/18 1408 <Electronically signed by Kerri Quintanilla DO> Date Kerri Quintanilla DO cc: Lamar Weiss MD; Theresa Quintanilla; Jonathon Marroquin D.O.; Sally Allison MD * Signed Discharge Date and Diagnosis - Problem List Patient Problems: Active and Suspected Problems (Last Reviewed 11/19/18 @ 21:52 by Alpesh Caro MD) RSV infection (Acute) Cystitis (Acute) Hypernatremia (Acute) Acute renal failure superimposed on chronic kidney disease (Acute) Cardiomyopathy (Acute) Severe with a 35% ejection fraction Hypophosphatemia (Acute) Elevated parathyroid hormone (Acute) PTH is 98, 24 hour urine Calcium is only 52. 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 Acute exacerbation of COPD Acute on chronic systolic congestive heart failure - Secondary Discharge Diagnosis Chronic Problems (Last Reviewed 11/19/18 @ 21:52 by Alpesh Caro MD) Anemia (Chronic) etiology unknown BPH (benign prostatic hyperplasia) (Chronic) Alzheimer's dementia (Chronic) History of kyphoplasty (Chronic) PETE (obstructive sleep apnea) (Chronic) Hypersomnia (Chronic) 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 No new or acute pathology. Electronically Signed: Jaylon Abarca MD at 20:22 EST , Service support , Lumbar Spine X-Ray 11/20/18 06:25 IMPRESSION: Mild acute superior endplate fracture at L2. Electronically Signed: Bay Johansen MD at 14:05 EST Tel , Service support , Lumbar Spine CT 11/23/18 05:55 IMPRESSION: Multilevel degenerative changes, as described above. Status post laminectomies at the L4-5 and L5-S1 levels. Status post kyphoplasty at the L2 level. Compression fractures of the T11 and L1 1 vertebral bodies were also present on the November 20 exam, but were not present on the October 10 exam. Electronically Signed: Jose Martin Hamilton MD at 7:49 EST , Service support , Chest X-Ray 11/23/18 13:39 IMPRESSION: 1. Bilateral upper lobe infiltrates stable in the interval. 2. Left costophrenic angle blunting consistent with small effusion or pleural reaction, also stable in the interval. 3. A bipolar left-sided pacemaker is present. Electronically Signed: Desmond Ty MD at 17:22 EST , Service support , Chest X-Ray 11/26/18 09:03 IMPRESSION: Mild bilateral upper lobes infiltrates slightly improved since previous exam. Electronically Signed: Felice Cross MD at 12:58 EST Tel , Service support , Microbiology 11/25/18 16:30 Urine Catheter - [place] Urine Culture - Final GNR lactose manager configuration 11/19/18 18:55 Blood Culture (Wb) - Anticubital Left Blood Culture - Final No growth in 5 days. 11/19/18 18:45 Blood Culture (Wb) - Anticubital Right Blood Culture - Final No growth in 5 days. 11/21/18 08:17 Mucosa - Nasopharyngeal Respiratory Panel (PCR) - Final RSV B 11/19/18 21:03 Urine, Clean Catch Urine Culture - Final Klebsiella pneumoniae sp pneum 11/19/18 19:55 Stool Stool Occult Blood (JEANNE) - Final Laboratory Results - last 24 hr ESR 38 H Sodium 146 H Potassium 4.6 Chloride 101 Carbon Dioxide 42.0 H Anion Gap 3 L BUN [address] Jonathon Marroquin and Dr. Jet Arnett-hot air furnace installer repairer/pulmonary medicine Dr. Alpesh Guevara-hematology/oncology Operations: None Procedures: 2-D Echocardiogram Summary of Care Provided: The pt is a 68 YO male with a PMH of stage 4 COPD, dilated CM with a 25-30% EF in 2014, CAD, chronic renal failure stage II 3, PETE, PAF, diabetes mellitus type 2, chronic anticoagulation with Eliquis, Silicosis, AICD placement, HTN , BPH with TURP's in the past with the most recent being in 2014, chronic dropped foot on the right, Alzheimer's dementia, cervical fusion and resection of a cerebral aneurysm who presented to the emergency department at [facility] on 11/10/2018 with complaints of increased confusion and increased somnolence. He additionally complained of severe back pain that started suddenly when he sat down hard in a WC. His stated that he had been unable to walk since then. He had recently had a Kyphoplasty at L2 by . Significant lab in the emergency room included a hemoglobin of 7.0, sodium of 149, serum bicarb of 44, BUN of 97 and creatinine of 2.21. Lactic acid was 1.2. Troponin was elevated at 0.408 and then trended down. UA had 5-10 white blood cells and was nitrite negative. There was 4+ bacteria. An ABG done on a 4 L nasal cannula showed a pH of 7.33, PCO2 of 89 and a PO2 of 122. Chest x-ray showed no infiltrates, pleural effusions or pulmonary vascular congestion. He was admitted to [facility] ICU on 11/19/2018 with acute metabolic encephalopathy on chronic dementia, acute on chronic respiratory failure with hypoxemia and hypercarbia, severe dehydration with hypernatremia, hypotension, acute kidney injury, cystitis and severe anemia. He was transfused and started on Steroids, aerosolized bronchodilators, ceftriaxone and IV fluids. Dr. Arnett was consulted to participate in management. Urine culture grew Klebsiella pneumoniae which was resistant to ampicillin but otherwise pansensitive. Blood cultures had no growth after 5 days. Hemoccult stool was negative. Respiratory panel grew RSV B. A plain x-ray of the back showed a new superior endplate depression at L1. He continued to complain of severe back pain and a CT scan of the lumbar spine was obtained and showed new compression fractures of the T11 and L1 vertebral bodies. There was multilevel degenerative changes and evidence of old laminectomies at L4-5 and L5-S1. He was started on Tylenol 1 GM PO q 8H and Oxy IR 5 mg every 8 hours and this adequately controlled his pain. An echocardiogram was done which showed mild to moderate global left ventricular systolic dysfunction with a 35% EF. The right ventricle was mildly dilated and the right ventricular systolic pressure was increased at 46 consistent with mild to moderate pulmonary hypertension. There was mild enlargement of both atria and no significant valvular heart disease. Dr. Guevara was consulted regarding the severe chronic anemia but, the pt had 2 units of PRBC's and this invalidated the results any blood testing done following the transfusions. He will follow up with the pt in the clinic in 3 months. Because of the multiple compression fractures PTH, vitamin D and a 24 hour urine for quantitative calcium were ordered. Vitamin D levels are still pending at the time of discharge. The calcium corrected for hypoalbuminemia is within normal limits. PTH is mildly elevated at 98.7. Testosterone is low at 6.4. The 24-hour urine for quantitative calcium had 52 mg of calcium per 24-hour period. 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 The PTH is only mildly elevated. Of interest is a low TSH with an A normal T3 and T4. He may have subclinical hyperthyroidism and this may be contributing to bone loss, AF and CM. It may be a good idea to refer him to an tester sound. Also of interest is and increased RA at 130. Rheumatologic disease could be contributing to the n/N anemia and he should be referred to a title i director to be evaluated. Would check a CCP. Lasix was held at admission due to severe dehydration and he subsequently developed acute systolic CHF. He was started on IV diuretics. He also went into AF with RVR and the rate was difficult to control until he was started on Amiodarone on 11/26/18. On 11/27/18 he was in NSR with occasional PVC's. He was discharged to [facility] on 11/27/18 for further PT/OT prior to returning home. He will be kept on Amiodarone. He was discharged on Lasix 60 mg daily. He also will continue on Keflex for 7 more doses. I recommend that he has a DEXA in the future and if he has osteoporosis would start a bisphosphonate. He was started on Vitamin D in the hospital. GENERAL: Looks more rested today. There are no family members in his room at the time I examined him. ORAL: moist mucosa, no mucosal lesions NECK: Mild JVD, supple, trachea midline LUNGS: diminished, symmetric chest expansion, no wheezing today, no rales today, still with pursed lip breathing but minimal. No conversational dyspnea today and no accessory muscle use HEART: regular, Normal S1 and S2, no rub, no gallop, telemetry shows NSR with occasional PVC's and some paced beats. ABDOMEN: soft, NT, mildly distended and tympanic, BS present, no guarding with palpation EXTREMITIES: no edema, no cyanosis, no calf tenderness SKIN: No rashes, no breakdown. He has petechiae on the arms from the BP cuff but this is unchanged and he has no rash any where else on his body NEUROLOGIC: no focal neurologic deficits PSYCH: appropriate, normal affect, pleasant This note was generated with [employer] dictation software. It may contain incorrect words, spelling, and punctuation that were not noted in checking the note before signing. Patient Problems: Active and Suspected Problems (Last Reviewed 11/19/18 @ 21:52 by Alpesh Caro MD) RSV infection (Acute) Cystitis (Acute) Hypernatremia (Acute) Acute renal failure superimposed on chronic kidney disease (Acute) Cardiomyopathy (Acute) Severe with a 35% ejection fraction Hypophosphatemia (Acute) Elevated parathyroid hormone (Acute) PTH is 98, 24 hour urine Calcium is only 52. 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 - Physical Exam Vital Signs Temp Pulse Resp BP Pulse Ox 97.9 F 96 18 107/64 95 11/27/18 14:09 11/27/18 15:00 11/27/18 14:09 11/27/18 14:09 11/27/18 14:09 Oxygen Flow Rate (L/min) 0.5 Oxygen Delivery Method Nasal Cannula Weight: 149 lb 11.102 oz Body Mass Index (BMI) 19.1 Intake and Output for Last 24 Hours Intake Total 828 / 828 1595 / 1595 794 / 794 Output Total 1450 / 1450 1950 / 1950 600 / 600 Balance -622 / -622 -355 / -355 194 / 194 Microbiology Past 72 Hours 11/25/18 16:30 Urine Culture - Final Urine Catheter - [place] GNR lactose manager configuration 11/19/18 18:55 Blood Culture - Final Laboratory Tests Past 24 Hrs ESR Home Medications: Medications to take at Discharge Finasteride [Proscar] 5 mg PO DAILY 09/09/15 Isosorbide Mononitrate [Imdur] 30 mg PO DAILY 06/19/16 memantine 5 mg tablet 28 mg PO QDAY 11/09/17 Cyanocobalamin [Vitamin B12] 1,000 mcg PO DAILY@0800 05/02/18 Nitroglycerin 0.4 mg SL PRN PRN 05/02/18 spironolactone 25 mg tablet 12.5 mg PO DAILY tab 09/27/18 Donepezil HCl 5 mg PO QHS 11/19/18 Acetaminophen [Tylenol] 1,000 mg PO Q8 tablet 11/27/18 Albuterol Aerosols [Ventolin Aerosols] 2.5 mg INHALATION Q2H PRN PRN vial.neb. 11/27/18 Amiodarone HCl [Pacerone] 200 mg PO UD #1 tablet 11/27/18 Apixaban [Eliquis] 2.5 mg PO BID tablet 11/27/18 Carvedilol [Coreg (Beta Kade)] 6.25 mg PO BID tablet 11/27/18 Cephalexin [Keflex] 500 mg PO Q8 #7 capsule 11/27/18 Ergocalciferol [Vitamin D] 50,000 unit PO Q7D capsule 11/27/18 Furosemide 60 mg PO DAILY #1 tab 11/27/18 Ipratropium/Albuterol Sulfate [Duoneb] 3 ml INHALATION Q6H.RT ampul.neb 11/27/18 Losartan Potassium [Cozaar] 25 mg PO DAILY #1 tablet 11/27/18 Na Biphos/Potassium Phosphate [Neutra-Phos Packet] 1 packet PO TID #6 packet 11/27/18 Oxycodone [Oxyir] 5 mg PO Q8 7 Days #21 tab 11/27/18 Oxygen, Home [Home Oxygen] 3 lpm NASAL DAILY PRN PRN #0 11/27/18 Pantoprazole Sodium [Protonix] 40 mg PO DAILY tablet 11/27/18 Prednisone 10 mg PO QDAY #30 tab 11/27/18 Following Prescrptions Were Given to Patient: Amiodarone HCl [Pacerone] 200 mg PO UD #1 tablet Losartan Potassium [Cozaar] 25 mg PO DAILY #1 tablet Oxycodone [Oxyir] 5 mg PO Q8 7 Days #21 tab Prednisone 10 mg PO QDAY #30 tab Na Biphos/Potassium Phosphate [Neutra-Phos Packet] 1 packet PO TID #6 packet Primary Care Physician: Sally Allison MD [Primary Care Provider] - Please follow up with your Primary Care Physician in: Following discharge from SNF Please Follow Up With: Alpesh Guevara MD When: 3 months Please Follow Up With: Jonathon Marroquin DO When: 2 weeks Please Follow Up With: Lamar Weiss MD When: as needed for pain management Disposition: Shelter facility Minutes spent on discharge:: 45 Patient Condition:: Stable Medical Necessity - Tobacco Use Smoking Status: Former smoker Tobacco Use: Non-smoker Meaningful Use Info Meaningful Use Diagnoses (Choose all that apply): CHF - CHF ANDREA/ARB ordered at discharge?: Yes Documented LVEF (%): 35 Code Visit Inpatient E AND M: [id number] Disch Hosp 11/27/18 1614 <Electronically signed by Kerri Quintanilla DO> Date Kerri Quintanilla DO Cosigner Signature (if applicable): Date CC: Lamar Weiss MD; Theresa Quintanilla; Jonathon Marroquin D.O.; Sally Allison MD Signed 12 LEAD ELECTROCARDIOGRAM Observed: 12/01/2018 Status: F Source: [place] 10:54 AM [facility] REPOSITORY [facility] Cardiovascular Services [address] [place] [address] 12 Lead EKG 11/26/18 1137 MR#: [id number] Acct: [id number] Name: JIMMY BUTLER Rep #: [id number] : 1950 68 From: Jonny Meneses MD Attending Dr: Theresa Quintanilla Status: DIS IN Ordering Dr: Kerri Quintanilla DO Date: 11/26/18 Location: [facility] Sex: M AA Admitted: 11/19/18 Test Reason : ARRYTHMIA Blood Pressure : / mmHG Vent. Rate : 132 BPM Atrial Rate : 133 BPM P-R Int : 122 ms QRS Dur : 108 ms QT Int : 304 ms P-R-T Axes : 051 -72 125 degrees QTc Int : 450 ms Sinus tachycardia with Premature supraventricular complexes and with occasional Premature ventricular complexes Left axis deviation ST AND T wave abnormality, consider lateral ischemia Abnormal ECG Confirmed by DUNCAN NGUYEN, JONNY ([id number]), news copy editor MALIA INGRAM ([id number]) on 12/01/2018 10:53:53 AM Referred By: Alpesh Caro Confirmed By:JONNY MENESES MD 12/01/18 1053 Date Jonny Meneses MD CC: Theresa Quintanilla; Alpesh Caro MD; Sally Allison MD Signed BASIC METABOLIC Collected: 11/30/2018 Status: F Source: [place] PROFILE (BMP) 6:45 AM [facility] REPOSITORY Order Comment: 408 TYPE CODE TESTS RESULT OUT OF RANGE REFERENCE UNITS LAB L501.0100 74-106 mg/dL High GLU 156 Result Comment: Fasting Glucose result greater than or equal to 126 mg/dL suggests DIABETES MELLITUS per A.D.A. criteria. Please note revised GLUCOSE reference range effective 2017. LAB L501.1000 7-18 mg/dL High BUN 27 LAB L501.1100 0.70-1.30 mg/dL Normal CREAT,SERUM 0.99 Result Comment: The validity of the calculated GFR AND GFRAA in patients over 70 years has not been determined. Clinical correlation is essential. LAB L501.1110 >60 mL/min Normal EST GFR 79 Result Comment: Non- GFR Calc LAB L501.1115 >60 mL/min Normal EST GFR - AA 96 Result Comment: GFR Calc LAB L501.1300 10-20 RATIO High BUN/CRE 27.2 LAB L501.2200 8.5-10.1 mg/dL Low CA 8.2 LAB L501.5300 136-145 mmol/L High NA 146 LAB L501.5600 3.5-5.1 mmol/L K Normal 4.2 LAB L501.5900 98-107 mmol/L CL Normal 100 LAB L501.6100 21.0-32.0 mmol/L High CO2 43.0 LAB L501.6200 5-15 Low GAP 3 Performed By: #### L500.2500, L501.2300 #### [facility] [address] [place], [place], [address] PHOSPHORUS Collected: 11/30/2018 Status: F Source: [place] 6:45 AM [facility] REPOSITORY Order Comment: 408 TYPE CODE TESTS RESULT OUT OF RANGE REFERENCE UNITS LAB L501.2300 2.5-4.9 mg/dL Low PHOS 1.5 Performed By: #### L500.2500, L501.2300 #### [facility] [address] [place], [place], [address] CBC-COMPLETE BLOOD CNT Collected: 11/30/2018 Status: F Source: [place] NO DIFF 6:45 AM [facility] REPOSITORY Order Comment: 408 TYPE CODE TESTS RESULT OUT OF RANGE REFERENCE UNITS LAB L100.1000 4.4-11.0 K/mm3 Normal WBC 6.5 LAB L100.1200 4.6-6.2 M/mm3 Low RBC 3.01 LAB L100.1300 13.0-16.5 g/dl Low HGB 8.0 LAB L100.1400 40-54 % Low HCT 28.7 LAB L100.1500 80-94 fL High MCV 95.3 LAB L100.1600 27.0-32.0 pg Low MCH 26.6 LAB L100.1700 32-36 g/gl Low MCHC 27.9 LAB L100.1810 11.6-14.6 % High RDW CV 17.2 LAB L100.1820 35.1-43.9 fl High RDW SD 54.3 LAB L100.1900 150-450 K/mm3 Normal PLT 174 LAB L100.2000 6.2-12.0 fl Normal MPV 9.6 Performed By: #### L100.0500 #### [facility] [address] [place], [address] PROGRESS Observed: 11/29/2018 Status: COMPLETED Source: [place] 2:31 PM [facility] REPOSITORY HNO ID: [id number] Author: Elyssa Tatum) Kapil Service: (none) Author Type: Journalism Professor Type: Progress Notes Filed: 11/29/2018 2:31 PM Note Text: Noted. Will follow patient at SNF. Elyssa Menendez MA PROGRESS Observed: 11/29/2018 Status: COMPLETED Source: [place] 12:25 PM [facility] REPOSITORY HNO ID: [id number] Author: Robbin Clarke (Rn) Service: (none) Author Type: Registered Nurse Type: Progress Notes Filed: 11/29/2018 2:23 PM Note Text: TRANSITION CARE MANAGEMENT (TCM) DISCHARGE TO POST ACUTE FACILITY POST ACUTE TRANSFER SUMMARY: -Pt discharged from [facility] on 11/27/18. -Post Acute Facility Admitted to [facility] -Admitted for: RSV infection (Acute), Cystitis (Acute), Hypernatremia (Acute), Acute renal failure superimposed on chronic kidney disease (Acute),Cardiomyopathy (Acute) Severe with a 35% ejection fraction, Hypophosphatemia (Acute), Elevated parathyroid hormone (Acute) PTH is 98, 24 hour urine Calcium is only 52, Elevated rheumatoid factor (Acute), 130, Osteoporosis (Suspected), Needs a DEXA scan, Atrial fibrillation with rapid ventricular response (Acute) Vertebral compression fracture (Acute), Severe dehydration (Acute), Acute encephalopathy (Acute) 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 BRIEF HOSPITAL COURSE: [facility] Excerpt Summary of Care Provided: The pt is a 68 YO male with a PMH of stage 4 COPD, dilated CM with a 25-30% EF in 2015, CAD, chronic renal failure stage II?3, PETE, PAF, diabetes mellitus type 2, chronic anticoagulation with Eliquis, Silicosis, AICD placement, HTN , BPH with TURP's in the past with the most recent being in 2014, chronic dropped foot on the right, Alzheimer's dementia, cervical fusion and resection of a cerebral aneurysm who presented to the emergency department at [facility] on 11/10/2018 with complaints of increased confusion and increased somnolence. He additionally complained of severe back pain that started suddenly when he sat down hard in a WC. His stated that he had been unable to walk since then. He had recently had a Kyphoplasty at L2 by . Significant lab in the emergency room included a hemoglobin of 7.0, sodium of 149, serum bicarb of 44, BUN of 97 and creatinine of 2.21. Lactic acid was 1.2. Troponin was elevated at 0.408 and then trended down. UA had 5-10 white blood cells and was nitrite negative. There was 4+ bacteria. An ABG done on a 4 L nasal cannula showed a pH of 7.33, PCO2 of 89 and a PO2 of 122. Chest x-ray showed no infiltrates, pleural effusions or pulmonary vascular congestion. He was admitted to [facility] ICU on 11/19/2018 with acute metabolic encephalopathy on chronic dementia, acute on chronic respiratory failure with hypoxemia and hypercarbia, severe dehydration with hypernatremia, hypotension, acute kidney injury, cystitis and severe anemia. He was transfused and started on Steroids, aerosolized bronchodilators, ceftriaxone and IV fluids. Dr. Arnett was consulted to participate in management. Urine culture grew Klebsiella pneumoniae which was resistant to ampicillin but otherwise pansensitive. Blood cultures had no growth after 5 days. Hemoccult stool was negative. Respiratory panel grew RSV B. A plain x-ray of the back showed a new superior endplate depression at L1. He continued to complain of severe back pain and a CT scan of the lumbar spine was obtained and showed new compression fractures of the T11 and L1 vertebral bodies. There was multilevel degenerative changes and evidence of old laminectomies at L4-5 and L5-S1. He was started on Tylenol 1 GM PO q 8H and Oxy IR 5 mg every 8 hours and this adequately controlled his pain. An echocardiogram was done which showed mild to moderate global left ventricular systolic dysfunction with a 35% EF. The right ventricle was mildly dilated and the right ventricular systolic pressure was increased at 46 consistent with mild to moderate pulmonary hypertension. There was mild enlargement of both atria and no significant valvular heart disease. Dr. Guevara was consulted regarding the severe chronic anemia but, the pt had 2 units of PRBC's and this invalidated the results any blood testing done following the transfusions. He will follow up with the pt in the clinic in 3 months. Because of the multiple compression fractures PTH, vitamin D and a 24 hour urine for quantitative calcium were ordered. Vitamin D levels are still pending at the time of discharge. The calcium corrected for hypoalbuminemia is within normal limits. PTH is mildly elevated at 98.7. Testosterone is low at 6.4. The 24-hour urine for quantitative calcium had 52 mg of calcium per 24-hour period. 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 The PTH is only mildly elevated. Of interest is a low TSH with an A normal T3 and T4. He may have subclinical hyperthyroidism and this may be contributing to bone loss, AF and CM. It may be a good idea to refer him to an tester sound. Also of interest is and increased RA at 130. Rheumatologic disease could be contributing to the n/N anemia and he should be referred to a title i director to be evaluated. Would check a CCP. Lasix was held at admission due to severe dehydration and he subsequently developed acute systolic CHF. He was started on IV diuretics. He also went into AF with RVR and the rate was difficult to control until he was started on Amiodarone on 11/26/18. On 11/27/18 he was in NSR with occasional PVC's. He was discharged to [facility] on 11/27/18 for further PT/OT prior to returning home. He will be kept on Amiodarone. He was discharged on Lasix 60 mg daily. He also will continue on Keflex for 7 more doses. I recommend that he has a DEXA in the future and if he has osteoporosis would start a bisphosphonate. He was started on Vitamin D in the hospital. Tricia Siegel RN November 29, 2018 2:20 PM ARTURO Observed: 11/29/2018 Status: COMPLETED Source: [place] 12:00 AM [facility] REPOSITORY Patient Outreach (FAMPWS) JIMMY BUTLER ([id number]) 1950 M Date Time Provider Department 11/29/18 ROBBIN CLARKE (RN) FAMPWS During your visit today, we recorded the following information about you: Tricia Siegel RN 11/29/2018 2:23 PM Signed TRANSITION CARE MANAGEMENT (TCM) DISCHARGE TO POST ACUTE FACILITY POST ACUTE TRANSFER SUMMARY: -Pt discharged from [facility] on 11/27/18. -Post Acute Facility Admitted to [facility] -Admitted for: RSV infection (Acute), Cystitis (Acute), Hypernatremia (Acute), Acute renal failure superimposed on chronic kidney disease (Acute),Cardiomyopathy (Acute) Severe with a 35% ejection fraction, Hypophosphatemia (Acute), Elevated parathyroid hormone (Acute) PTH is 98, 24 hour urine Calcium is only 52, Elevated rheumatoid factor (Acute), 130, Osteoporosis (Suspected), Needs a DEXA scan, Atrial fibrillation with rapid ventricular response (Acute) Vertebral compression fracture (Acute), Severe dehydration (Acute), Acute encephalopathy (Acute) 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 BRIEF HOSPITAL COURSE: [facility] Excerpt Summary of Care Provided: The pt is a 68 YO male with a PMH of stage 4 COPD, dilated CM with a 25-30% EF in 2014, CAD, chronic renal failure stage II?3, PETE, PAF, diabetes mellitus type 2, chronic anticoagulation with Eliquis, Silicosis, AICD placement, HTN , BPH with TURP's in the past with the most recent being in 2014, chronic dropped foot on the right, Alzheimer's dementia, cervical fusion and resection of a cerebral aneurysm who presented to the emergency department at [facility] on 11/10/2018 with complaints of increased confusion and increased somnolence. He additionally complained of severe back pain that started suddenly when he sat down hard in a WC. His stated that he had been unable to walk since then. He had recently had a Kyphoplasty at L2 by . Significant lab in the emergency room included a hemoglobin of 7.0, sodium of 149, serum bicarb of 44, BUN of 97 and creatinine of 2.21. Lactic acid was 1.2. Troponin was elevated at 0.408 and then trended down. UA had 5-10 white blood cells and was nitrite negative. There was 4+ bacteria. An ABG done on a 4 L nasal cannula showed a pH of 7.33, PCO2 of 89 and a PO2 of 122. Chest x-ray showed no infiltrates, pleural effusions or pulmonary vascular congestion. He was admitted to [facility] ICU on 11/19/2018 with acute metabolic encephalopathy on chronic dementia, acute on chronic respiratory failure with hypoxemia and hypercarbia, severe dehydration with hypernatremia, hypotension, acute kidney injury, cystitis and severe anemia. He was transfused and started on Steroids, aerosolized bronchodilators, ceftriaxone and IV fluids. Dr. Arnett was consulted to participate in management. Urine culture grew Klebsiella pneumoniae which was resistant to ampicillin but otherwise pansensitive. Blood cultures had no growth after 5 days. Hemoccult stool was negative. Respiratory panel grew RSV B. A plain x-ray of the back showed a new superior endplate depression at L1. He continued to complain of severe back pain and a CT scan of the lumbar spine was obtained and showed new compression fractures of the T11 and L1 vertebral bodies. There was multilevel degenerative changes and evidence of old laminectomies at L4-5 and L5-S1. He was started on Tylenol 1 GM PO q 8H and Oxy IR 5 mg every 8 hours and this adequately controlled his pain. An echocardiogram was done which showed mild to moderate global left ventricular systolic dysfunction with a 35% EF. The right ventricle was mildly dilated and the right ventricular systolic pressure was increased at 46 consistent with mild to moderate pulmonary hypertension. There was mild enlargement of both atria and no significant valvular heart disease. Dr. Guevara was consulted regarding the severe chronic anemia but, the pt had 2 units of PRBC's and this invalidated the results any blood testing done following the transfusions. He will follow up with the pt in the clinic in 3 months. Because of the multiple compression fractures PTH, vitamin D and a 24 hour urine for quantitative calcium were ordered. Vitamin D levels are still pending at the time of discharge. The calcium corrected for hypoalbuminemia is within normal limits. PTH is mildly elevated at 98.7. Testosterone is low at 6.4. The 24-hour urine for quantitative calcium had 52 mg of calcium per 24-hour period. 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 The PTH is only mildly elevated. Of interest is a low TSH with an A normal T3 and T4. He may have subclinical hyperthyroidism and this may be contributing to bone loss, AF and CM. It may be a good idea to refer him to an tester sound. Also of interest is and increased RA at 130. Rheumatologic disease could be contributing to the n/N anemia and he should be referred to a title i director to be evaluated. Would check a CCP. Lasix was held at admission due to severe dehydration and he subsequently developed acute systolic CHF. He was started on IV diuretics. He also went into AF with RVR and the rate was difficult to control until he was started on Amiodarone on 11/26/18. On 11/27/18 he was in NSR with occasional PVC's. He was discharged to [facility] on 11/27/18 for further PT/OT prior to returning home. He will be kept on Amiodarone. He was discharged on Lasix 60 mg daily. He also will continue on Keflex for 7 more doses. I recommend that he has a DEXA in the future and if he has osteoporosis would start a bisphosphonate. He was started on Vitamin D in the hospital. Tricia Siegel RN November 29, 2018 2:20 PM Elyssa Menendez MA 11/29/2018 2:31 PM Signed Noted. Will follow patient at [facility]. Elyssa Menendez MA Allergies As of Date: 11/29/2018 Noted Allergy Reaction ASA (ASPIRIN) 07/19/2017 8 - GI Upset ASA (SALICYLATES) 01/29/2006 8 - GI Upset Date Reviewed: 10/21/2018 Reviewed by: Desmond Romero Jr. - Fully Assessed Reason for Visit: Transition Of Care [7804] Cmt: HEMA D/C 11/27/18 Dx: Prescriptions as of 11/29/2018 Sig: MEMANTINE 28 MG CAPSULE SPRIN* Take 1 capsule by mouth once * DONEPEZIL 5 MG TABLET Take 1 tablet by mouth daily * ISOSORBIDE MONONITRATE ER 30 * TAKE 1 TABLET EVERY DAY HYDRALAZINE 50 MG TABLET TAKE 1 TABLET THREE TIMES JOSH* LISINOPRIL 20 MG TABLET Take 1 tablet by mouth once d* METOLAZONE 2.5 MG TABLET Take 2.5 mg by mouth every 48* PREDNISONE 10 MG TABLET Take 1 tablet by mouth once d* SPIRONOLACTONE 25 MG TABLET Take 0.5 tablets by mouth onc* FUROSEMIDE 40 MG TABLET Take 1 1/2 tablets (60mg) twi* DIGOXIN 62.5 MCG TABLET Take 1 tablet by mouth once d* HYDRALAZINE 50 MG TABLET Take 0.5 tablets by mouth thr* NYSTATIN 100,000 UNIT/ML ORAL* Take 5 mL by mouth three time* CARVEDILOL 25 MG TABLET TAKE 1 TABLET BY MOUTH TWICE * ELIQUIS 5 MG TABLET TAKE 1 TABLET BY MOUTH TWICE * NITROFURANTOIN MONOHYDRATE AND * Take 1 capsule by mouth once * FINASTERIDE 5 MG TABLET Take 1 tablet by mouth once d* BIPAP LEVALBUTEROL 0.63 MG/3 ML BIBIANA* Use 3 mL via nebulizer every * NITROGLYCERIN 0.4 MG SUBLINGU* Dissolve 1 tablet under the t* COMPOUNDED PRESCRIPTION [facility]* COMPOUNDED PRESCRIPTION Oxygen 3 liters CYANOCOBALAMIN (VIT B-12) 1,0* Dissolve 1 tablet under the t* Problem List As Of Date 11/29/2018 Noted Resolved Hypertension [I10] INVALID FOR* Lumbar disc disease [M51.9] INVALID FOR* Cervical disc disease [M50.90] INVALID FOR* COPD (chronic obstructive pulmonary disease) [J*INVALID FOR* BPH (benign prostatic hyperplasia) [N40.0] INVALID FOR* Urethral stricture [RTR3674] INVALID FOR* Difficulty voiding [R39.198] INVALID FOR* Frequency of urination [R35.0] INVALID FOR* Urinary retention [R33.9] INVALID FOR* Anemia [D64.9] INVALID FOR* Tobacco abuse [Z72.0] INVALID FOR* Nonischemic cardiomyopathy (HCC) [I42.8] INVALID FOR* Atrial fibrillation with rapid ventricular resp*INVALID FOR* AICD (automatic cardioverter/defibrillator) pre*INVALID FOR* Spontaneous pneumothorax [J93.83] INVALID FOR* Swallowing difficulty [R13.10] INVALID FOR* More... PETE treated with BiPAP [G47.33] INVALID FOR* More... Encounter Status:Closed by TRICIA SIEGEL on 11/29/18 TRANSFER TO EXTENDED Observed: 11/27/2018 Status: F Source: [facility] 3:21 PM [facility] REPOSITORY [facility] Medical Records Department [address] [place] [address] Transfer to Extended Care MR#: [id number] Acct: [id number] Name: JIMMY BUTLER Rep #: [id number] : 1950 68 From: Kerri Quintanilla DO PCP: Sally Allison MD Status: ADM IN JIMMY BUTLER (Patient) (Health Ins. Claim No.) (Day of Discharge to Facility) Certification of patient admission REQUIRED AT TIME OF ADMISSION. I CERTIFY THAT POST-HOSPITAL ECF SERVICES ARE REQUIRED TO BE GIVEN ON AN IN-PATIENT BASIS BECAUSE OF THE ABOVE NAMED PATIENT'S NEED FOR RESIDENTIAL CARE ON A CONTINUING BASIS FOR THE CONDITION(S) FOR WHICH HE/SHE WAS RECEIVING IN-PATIENT HOSPITAL SERVICES PRIOR TO HIS/HER TRANSFER TO THE ECF. 11/27/18 1521 <Electronically signed by Kerri Quintanilla DO> Date Kerri Quintanilla DO - Diet 11/21/18 13:38 Diet: Cardiac/Low Cholesterol Is pt able to select menu?: Yes Fluid restriction: 1500 cc daily - Routine Orders/Code Status Enema Type: Fleetz Enema Frequency: Daily PRN Suppository Type: Dulcolax 10mg Suppository Frequency: Daily PRN O2 Liters per Minute: 0.5-1 liter O2 Frequency: Continuous Keep PO Greater than or Equal to (%): 89 - titrate to keep the O2 sat between 89-93 and no higher than 93...he is a CO2 retainer Routine Lab Work: - - BMP, CBC, phos on 11/30/18 Code Status: DNRCC-A - Wound(s) Left chin Wound Type: Abrasion Left hip Wound Type: scab R Hip Wound Type: scab - Therapies Weight Bearing: Full weight bearing Physical Therapy: Eval and Treat Occupational Therapy: Eval and Treat - Problem/Diagnosis (1) Acute encephalopathy Status: Acute Comment: 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 Current Visit: Yes (2) Severe dehydration Status: Acute Current Visit: Yes (3) Anemia Status: Chronic Comment: etiology unknown Current Visit: Yes (4) Acute on chronic respiratory failure with hypoxia and hypercapnia Status: Acute Current Visit: No (5) Acute on chronic systolic (congestive) heart failure Status: Acute Current Visit: No (6) COPD exacerbation Status: Acute Current Visit: No (7) Elevated troponin Status: Acute Comment: likely due to acute on chronic renal failure Current Visit: No (8) History of implantable cardioverter-defibrillator (ICD) placement Status: Chronic Current Visit: No (9) Hypersomnia Status: Chronic Current Visit: No (10) Hypertension Status: Chronic Current Visit: No (11) PETE (obstructive sleep apnea) Status: Chronic Current Visit: No (12) Paroxysmal atrial fibrillation Status: Chronic Current Visit: No (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 Current Visit: No (14) Stage 4 very severe COPD by GOLD classification Status: Chronic Current Visit: No (15) 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 Current Visit: No (16) Pleural effusion Status: Acute Comment: due to acute systolic CHF Current Visit: No (17) RSV infection Status: Acute Current Visit: Yes (18) Cystitis Status: Acute Current Visit: Yes (19) Hypernatremia Status: Acute Current Visit: Yes (20) Thrombocytopenia Status: Resolved Current Visit: Yes (21) Leukopenia Status: Resolved Current Visit: Yes (22) BPH (benign prostatic hyperplasia) Status: Chronic Current Visit: Yes (23) Alzheimer's dementia Status: Chronic Current Visit: Yes (24) Acute renal failure superimposed on chronic kidney disease Status: Acute Current Visit: Yes (25) Cardiomyopathy Status: Acute Comment: Severe with a 35% ejection fraction Current Visit: Yes (26) Hypophosphatemia Status: Acute Current Visit: Yes (27) Elevated parathyroid hormone Status: Acute Comment: PTH is 98, 24 hour urine Calcium is only 52. Current Visit: Yes (28) Elevated rheumatoid factor Status: Acute Comment: 130 Current Visit: Yes (29) Osteoporosis Status: Suspected Comment: Needs a DEXA scan Current Visit: Yes (30) Atrial fibrillation with rapid ventricular response Status: Acute Current Visit: Yes (31) Vertebral compression fracture Status: Acute Current Visit: Yes (32) History of kyphoplasty Status: Chronic Current Visit: Yes - Allergies/Procedures Done in Hospital Allergies/Adverse Reactions: Allergies aspirin Adverse Reaction (Verified 11/19/18 18:24) Upset Stomach Procedures: 2-D Echocardiogram - Type of Care/Length of Stay Estimated LOS: Convalescent Care Less Than 30 days Type of Care Needed: Skilled Rehab Potential: Good Prognosis: Good - Additional Orders/Day of Discharge H AND P will serve as current which was dated: 11/19/18 Day of Discharge: 11/27/18 - Dietary and Speech Recommendations Dietitian Recommendations/Changes: Rec diet change to regular, no added salt d/t signs/symptoms of malnutrition. - Follow Up Care Primary Care Physician: Sally Allison MD [Primary Care Provider] - Please follow up with your Primary Care Physician in: Following discharge from SNF Please Follow Up With: Alpesh Guevara MD When: 3 months Please Follow Up With: Jonathon Marroquin DO When: 2 weeks Please Follow Up With: Lamar Weiss MD When: as needed for pain management 11/27/18 1521 <Electronically signed by Kerri Quintanilla DO> Date Kerri Quintanilla DO CC: Lamar Weiss MD; Jet Arnett MD; Jonathon Marroquin D.O.; Alpesh Guevara MD; Sally Allison MD Signed ERYTHROCYTE SED RATE Collected: 11/27/2018 Status: F Source: [place] 6:10 AM [facility] REPOSITORY TYPE CODE TESTS RESULT OUT OF RANGE REFERENCE UNITS LAB L102.0000 0-20 mm/hr High SED RATE 38 Performed By: #### L101.9900 #### [facility] [place], [address] BASIC METABOLIC Collected: 11/27/2018 Status: F Source: [place] PROFILE (BMP) 6:10 AM [facility] REPOSITORY TYPE CODE TESTS RESULT OUT OF RANGE REFERENCE UNITS LAB L501.0100 74-106 mg/dL Normal GLU 84 Result Comment: Please note revised GLUCOSE reference range effective 2017. LAB L501.1000 7-18 mg/dL High BUN 38 LAB L501.1100 0.70-1.30 mg/dL Normal CREAT,SERUM 0.97 Result Comment: The validity of the calculated GFR AND GFRAA in patients over 70 years has not been determined. Clinical correlation is essential. LAB L501.1110 >60 mL/min Normal EST GFR 81 Result Comment: Non- GFR Calc LAB L501.1115 >60 mL/min Normal EST GFR - AA 98 Result Comment: GFR Calc LAB L501.1255 ml/min Normal Estimated CRCL 68.06 LAB L501.1300 10-20 RATIO High BUN/CRE 39.2 LAB L501.2200 8.5-10 mg/dL Low .1 CA 8.3 LAB L501.5300 136-14 mmol/L High 5 NA 146 LAB L501.5600 3.5-5. mmol/L Normal 1 K 4.6 LAB L501.5900 98-107 mmol/L Normal CL 101 LAB L501.6100 21.0-3 mmol/L High 2.0 CO2 42.0 LAB L501.6200 5-15 Low GAP 3 Performed By: #### L500.2500, L501.2300, L501.6710 #### [facility] [address] [place], [place], [address] PHOSPHORUS Collected: 11/27/2018 Status: F Source: [place] 6:10 AM [facility] REPOSITORY TYPE CODE TESTS RESULT OUT OF RANGE REFERENCE UNITS LAB L501.2300 2.5-4.9 mg/dL Low PHOS 1.8 Performed By: #### L500.2500, L501.2300, L501.6710 #### [facility] [address] [place], [place], [address] CRP Collected: 11/27/2018 Status: F Source: [place] 6:10 AM [facility] REPOSITORY TYPE CODE TESTS RESULT OUT OF RANGE REFERENCE UNITS LAB L501.6710 0.0-3.0 mg/L High 5.32 C-REACTIVE PROT Result Comment: C-Reactive Protein (CRP) provides useful information for the diagnosis, therapy and monitoring of inflammatory processes and associated diseases. For the evaluation of Relative Risk for Cardiovascular Disease, a High Sensitivity CRP (HSCRP) should be ordered. Performed By: #### L500.2500, L501.2300, L501.6710 #### [facility] [address] [place], [address] VITAMIN D,25 HYDROXY Collected: 11/27/2018 Status: F Source: [place] 6:10 AM [facility] REPOSITORY TYPE CODE TESTS RESULT OUT OF RANGE REFERENCE UNITS LAB L506.1000 29.95-100.01 ng/mL Normal Vitamin D 41.8 25-OH Result Comment: Vitamin D 25(OH) Status Range Deficiency <20 ng/mL (50nmol/L) Insuffciency 20 - 30 ng/mL (50 - 75 nmol/L) Sufficiency 30 - 100 ng/mL (75 - 250 nmol/L) Toxicity >100 ng/mL (>250 nmol/L) Performed By: #### L506.1000 #### [facility] [address] [place], [address] CALCIUM, URINE 24HR Collected: 11/26/2018 Status: F Source: [place] 4:30 PM [facility] REPOSITORY TYPE CODE TESTS RESULT OUT OF RANGE REFERENCE UNITS LAB L501.2280 Normal Calcium UR pH 2 LAB L501.2281 24.0-24.0 HR Normal UR Collect 24.0 Time LAB L501.2288 ml Normal UR Total 2620 Volume LAB L501.2290 Not Estab. Normal Urine Calcium < 2.0 LAB L501.2293 42.0-353.0 mg/24 HR Normal 24HR UR 52.4 Calcium Performed By: #### L500.7000 #### [facility] [address] [place], [address] HH, HEMOGLOBIN AND Collected: 11/26/2018 Status: F Source: [place] HEMATOCRIT 7:44 AM [facility] REPOSITORY TYPE CODE TESTS RESULT OUT OF RANGE REFERENCE UNITS LAB L100.1300 13.0-16.5 g/dl Low HGB 7.9 LAB L100.1400 40-54 % Low HCT 27.6 Performed By: #### L100.0600 #### [facility] [address] [place], [place], [id number] BASIC METABOLIC Collected: 11/26/2018 Status: F Source: [place] PROFILE (BMP) 7:44 AM [facility] REPOSITORY TYPE CODE TESTS RESULT OUT OF RANGE REFERENCE UNITS LAB L501.0100 74-106 mg/dL Normal GLU 94 Result Comment: Please note revised GLUCOSE reference range effective 2017. LAB L501.1000 7-18 mg/dL High BUN 39 LAB L501.1100 0.70-1.30 mg/dL Normal CREAT,SERUM 1.00 Result Comment: The validity of the calculated GFR AND GFRAA in patients over 70 years has not been determined. Clinical correlation is essential. LAB L501.1110 >60 mL/min Normal EST GFR 78 Result Comment: Non- GFR Calc LAB L501.1115 >60 mL/min Normal EST GFR - AA 95 Result Comment: GFR Calc LAB L501.1255 ml/min Normal Estimated CRCL 64.85 LAB L501.1300 10-20 RATIO High BUN/CRE 39.0 LAB L501.2200 8.5-10 mg/dL Low .1 CA 8.3 LAB L501.5300 136-14 mmol/L High 5 NA 148 LAB L501.5600 3.5-5. mmol/L Normal 1 K 4.4 LAB L501.5900 98-107 mmol/L Normal CL 104 LAB L501.6100 21.0-3 mmol/L High 2.0 CO2 41.0 LAB L501.6200 5-15 Low GAP 3 Performed By: #### L500.2500, L501.1800, L501.2300 #### [facility] [address] [facility] [place], [address] ALBUMIN, SERUM Collected: 11/26/2018 Status: F Source: [place] 7:44 AM [facility] REPOSITORY TYPE CODE TESTS RESULT OUT OF RANGE REFERENCE UNITS LAB L501.1800 3.2-5.0 g/dL Low ALB 2.4 Performed By: #### L500.2500, L501.1800, L501.2300 #### [facility] [address] [place], [address] PHOSPHORUS Collected: 11/26/2018 Status: F Source: [place] 7:44 AM [facility] REPOSITORY TYPE CODE TESTS RESULT OUT OF RANGE REFERENCE UNITS LAB L501.2300 2.5-4.9 mg/dL Normal PHOS 3.2 Performed By: #### L500.2500, L501.1800, L501.2300 #### [facility] [address] [place], [address] CHEST PA AND LATERAL Observed: 11/26/2018 Status: F Source: [place] 12:00 AM [facility] REPOSITORY [facility] Imaging Services [address] [place] [address] Chest PA and Lateral MR#: [id number] Acct: [id number] Name: JIMMY BUTLER Rep #: [id number] : 1950 M 68 From: Felice Cross MD PCP: Keegan NGUYEN,Sally Status: ADM IN Study: Chest PA and Lateral Date of Exam: 11/26/18 Exam# [id number] Ordering Dr: Kerri Quintanilla DO STUDY: X-RAY CHEST REASON FOR EXAM: Male, 68 years old. Congestive heart failure. TECHNIQUE: PA and lateral views of the chest. COMPARISON: 11/23/2018. FINDINGS: There again is a dual-chamber left sided pacemaker in stable position. Patchy infiltrate in the right upper lobe is again seen slightly improved since the previous examination. There is continued slightly prominent markings in the left upper lobe/infiltrate. There is small left pleural effusion. There are mild atelectatic changes in the left lung base. The heart is within normal limits in size. Normal mediastinum and yee. Normal visualized pulmonary arteries. There is atherosclerotic tortuosity of the aortic arch and descending thoracic aorta. There is decrease height of several thoracic vertebrae. There are degenerative changes in the right shoulder. There is no demonstrated abnormality of the visualized soft tissue structures of the upper abdomen. RAD/Chest PA and Lateral IMPRESSION: Mild bilateral upper lobes infiltrates slightly improved since previous exam. Electronically Signed: Felice Cross MD at 12:58 EST Tel , Service support , CC: Theresa Quintanilla; Sally Allison MD [employer] Crewmember: Signed URINALYSIS, COMPLETE Collected: 11/25/2018 Status: F Source: [place] 4:30 PM [facility] REPOSITORY Order Comment: How was Urine Obtained? CUPOLA TENDER HELPER TO SPECIFY TYPE CODE TESTS RESULT OUT OF RANGE REFERENCE UNITS LAB L400.3000 Yellow COLOR Normal Yellow LAB L400.3050 Clear Normal CLARITY Clear LAB L400.3200 Normal mg/dl High 50 GLUCOSE, UR LAB L400.3300 Negative mg/dL Normal BILIRUBIN URINE Negative LAB L400.3400 Negative mg/dl Normal KETONE UR Negative LAB L400.3465 1.002-1.030 Normal SP.GR. DIPSTX 1.010 LAB L400.3550 5.0 - 8.0 pH UR Normal 8.0 LAB L400.3600 Negative mg/dl High PROT 15 DIPSTX LAB L400.3700 Normal mg/dl Normal UROBILI Normal LAB L400.3750 Negative Normal NITRITE UR Negative LAB L400.3780 Negative /ul Normal OCCULT BLOOD-UR Negative LAB L400.3800 Negative /ul LEUK Normal ESTERASE Negative LAB L400.4050 0-5 /hpf WBC 0 Normal SEEN LAB L400.4100 0-5 /hpf 0 Normal RBC-UA SEEN LAB L400.4150 0-5 /hpf SQUAM Normal EPI 0-5 SEEN LAB L400.4300 None Seen /hpf 0 Normal BACTERIA SEEN LAB L400.4350 <or=2+ /hpf 0 Normal MUCUS, URINE SEEN Performed By: #### L400.0001 #### [facility] [place], [address] Observed: 11/25/2018 Status: F Source: [place] CULTURE, URINE 4:30 PM [facility] REPOSITORY Urine Culture Below infection level. ORGANISM 1: GNR lactose manager configuration [place] Count <1000 Performed By: #### M100.0650 #### [facility] [address], [address] PROGRESS Observed: 11/25/2018 Status: COMPLETED Source: [place] 3:51 PM [facility] REPOSITORY HNO ID: [id number] Author: Sally Allison Service: (none) Author Type: Physician Type: Progress Notes Filed: 11/25/2018 5:11 PM Note Text: Noted Sally Allison MD PROGRESS Observed: 11/25/2018 Status: COMPLETED Source: [place] 2:50 PM [facility] REPOSITORY HNO ID: [id number] Author: Robbin Clarke (Rn) Service: (none) Author Type: Registered Nurse Type: Progress Notes Filed: 11/25/2018 5:11 PM Note Text: PRIMARY CARE COORDINATION FOLLOW-UP NOTE 1. Pt presented to [facility] ED 11/19/18 with Dyspnea, Dx: Acute on Chronic Respiratory Failure with Hypercapnia, Elevated Troponin, Anemia Hgb 7, Sepsis , UTI, RAFAEL 2. Pt remains Inpt at [facility] Patient identified by name and date of . 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: Follow for Care Needs Signature Tricia Siegel, [place] November 25, 2018 CBC-COMPLETE BLOOD CNT Collected: 11/25/2018 Status: F Source: [place] NO DIFF 6:30 AM [facility] REPOSITORY TYPE CODE TESTS RESULT OUT OF RANGE REFERENCE UNITS LAB L100.1000 4.4-11.0 K/mm3 Normal WBC 5.2 LAB L100.1200 4.6-6.2 M/mm3 Low RBC 2.78 LAB L100.1300 13.0-16.5 g/dl Low HGB 7.7 LAB L100.1400 40-54 % Low HCT 27.1 LAB L100.1500 80-94 fL High MCV 97.5 LAB L100.1600 27.0-32.0 pg Normal MCH 27.7 LAB L100.1700 32-36 g/gl Low MCHC 28.4 LAB L100.1810 11.6-14.6 % High RDW CV 15.1 LAB L100.1820 35.1-43.9 fl High RDW SD 49.6 LAB L100.1900 150-450 K/mm3 Low PLT 148 LAB L100.2000 6.2-12.0 fl Normal MPV 9.7 Performed By: #### L100.0500 #### [facility] [address] [facility]. [place], [place], [address] BASIC METABOLIC Collected: 11/25/2018 Status: F Source: [place] PROFILE (BMP) 6:30 AM [facility] REPOSITORY TYPE CODE TESTS RESULT OUT OF RANGE REFERENCE UNITS LAB L501.0100 74-106 mg/dL Normal GLU 84 Result Comment: Please note revised GLUCOSE reference range effective 2017. LAB L501.1000 7-18 mg/dL High BUN 41 LAB L501.1100 0.70-1.30 mg/dL Normal CREAT,SERUM 1.12 Result Comment: The validity of the calculated GFR AND GFRAA in patients over 70 years has not been determined. Clinical correlation is essential. LAB L501.1110 >60 mL/min Normal EST GFR 69 Result Comment: Non- GFR Calc LAB L501.1115 >60 mL/min Normal EST GFR - AA 83 Result Comment: GFR Calc LAB L501.1255 ml/min Normal Estimated CRCL 55.90 LAB L501.1300 10-20 RATIO High BUN/CRE 36.6 LAB L501.2200 8.5-10 mg/dL Normal .1 CA 8.8 LAB L501.5300 136-14 mmol/L High 5 NA 148 LAB L501.5600 3.5-5. mmol/L Normal 1 K 4.7 LAB L501.5900 98-107 mmol/L Normal CL 104 LAB L501.6100 21.0-3 mmol/L High 2.0 CO2 40.0 LAB L501.6200 5-15 Low GAP 4 Performed By: #### L500.2500, L501.2300, L501.5200 #### [facility] [address] [place], [address] PHOSPHORUS Collected: 11/25/2018 Status: F Source: [place] 6:30 AM [facility] REPOSITORY TYPE CODE TESTS RESULT OUT OF RANGE REFERENCE UNITS LAB L501.2300 2.5-4.9 mg/dL Low PHOS 1.6 Performed By: #### L500.2500, L501.2300, L501.5200 #### [facility] [address] [place], [address] MAGNESIUM Collected: 11/25/2018 Status: F Source: [place] 6:30 AM [facility] REPOSITORY TYPE CODE TESTS RESULT OUT OF RANGE REFERENCE UNITS LAB L501.5200 1.6-2.6 mg/dL Normal MG 2.5 Performed By: #### L500.2500, L501.2300, L501.5200 #### [facility] [address] [place], [address] BEDSIDE GLUCOSE Collected: 11/25/2018 Status: F Source: [place] 2:41 AM [facility] REPOSITORY TYPE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 Oropharynx:: Dry mucosa Neck:: Supple, Trachea midline. Negative for: JVD, bilateral Cardiac:: Regular rate, Regular rhythm, Normal S1, Normal S2. Negative for: Murmur Lungs: Clear to auscultation, Excusion symmetrical. Negative for: Rhonchi, Wheezes Abdomen:: Bowel sounds x 4, Soft, Non-tender, Non-distended. Negative for: Hepatosplenomegaly Skin:: Negative for: Lesions, Rash, Petechiae, Ecchymosis Lymphatics:: Negative for: Cervical lymphadenopathy, Supraclavicular lymphadenopathy, Axillary lymphadenopathy Laboratory Data: Microbiology 11/21/18 08:17 Respiratory Panel (PCR) - Final Laboratory Tests WBC (4.4-11.0) K/mm3 RBC (4.6-6.2) M/mm3 Hgb (13.0-16.5) g/dl WBC (4.4-11.0) K/mm3 RBC (4.6-6.2) M/mm3 Hgb (13.0-16.5) g/dl Hct (40-54) % MCV (80-94) fL Diagnostic Data: Diagnostic Data Chest X-Ray 11/19/18 18:35 IMPRESSION: Stable hyperexpansion compatible with COPD. No new or acute pathology. Electronically Signed: Jaylon Abarca MD at 20:22 EST , Service support , Lumbar Spine X-Ray 11/20/18 06:25 IMPRESSION: Mild acute superior endplate fracture at L2. Electronically Signed: Bay Johansen MD at 14:05 EST Tel , Service support , Assessment and Plan Chronic Anemia, etiology may be multifactorial, including malnutrition, anemia of chronic disease. Admitted with RSV and respiratory failure. S/P PRBC transfusion. Suggestion is to continue supportive care. Follow up as outpatient on discharge for work up. Medications: Prescriptions This Visit Medication Instructions Recorded Donepezil HCl 5 mg PO QHS 11/19/18 Medications Added to Medication List This Visit Apixaban [Eliquis] Med 11/21/18 10:00 Active Primary Care Provider: Sally Allison MD Referring Provider: Alpesh Caro MD - Problem List (1) Anemia Status: Chronic Qualifiers: Anemia type: unspecified type Qualified Code(s): D64.9 - Anemia, unspecified Code Visit Office Visits / Consults: [id number] IP Consult L5 11/21/18 1800 <Electronically signed by Alpesh Guevara MD> Date Alpesh Guevara MD Cosigner Signature (if applicable): Date CC: Jet Arnett MD; Alpesh Caro MD; Alpesh Guevara MD; Sally Allison MD Signed BEDSIDE GLUCOSE Collected: 11/21/2018 Status: F Source: [place] 5:07 PM [facility] REPOSITORY TYPE CODE TESTS RESULT OUT OF REFERENCE UNITS RANGE LAB L501.080 70-110 mg/dL High BEDSIDE GLU 121 Result Comment: MANAGEMENT OF PATIENT CARE PER NURSING PROTOCOL Performed By: #### L501.080 #### [facility] Point of Care [address] [place] [address] 12 LEAD ELECTROCARDIOGRAM Observed: 11/21/2018 Status: F Source: [place] 12:47 PM [facility] REPOSITORY [facility] Cardi[facility] Services [address] [place] [address] 12 Lead EKG 11/19/18 1933 MR#: [id number] Acct: [id number] Name: JIMMY BUTLER Rep #: [id number] : 1950 68 From: Jonny Meneses MD Attending Dr: Theresa Quintanilla Status: ADM IN Ordering Dr: Joseph Davis MD Date: 11/19/18 Location: ICU Sex: M AA Admitted: 11/19/18 Test Reason : SOB Blood Pressure : / mmHG Vent. Rate : 101 BPM Atrial Rate : 108 BPM P-R Int : 144 ms QRS Dur : 104 ms QT Int : 356 ms P-R-T Axes : 047 -62 121 degrees QTc Int : 461 ms Sinus tachycardia with occasional Premature ventricular complexes Left axis deviation ST AND T wave abnormality, consider lateral ischemia Abnormal ECG Confirmed by DUNCAN NGUYEN, JONNY ([id number]), news copy editor MALIA INGRAM ([id number]) on 11/21/2018 12:47:03 PM Referred By: Alpesh Caro Confirmed By:JONNY MENESES MD 11/21/18 1247 Date Jonny Meneses MD CC: Theresa Quintanilla; Joseph Davis MD; Alpesh Caro MD; Sally Allison MD Signed BEDSIDE GLUCOSE Collected: 11/21/2018 Status: F Source: [place] 11:20 AM [facility] REPOSITORY TYPE CODE TESTS RESULT OUT OF REFERENCE UNITS RANGE LAB L501.080 70-110 mg/dL High BEDSIDE GLU 201 Result Comment: MANAGEMENT OF PATIENT CARE PER NURSING PROTOCOL Performed By: #### L501.080 #### [facility] Point of Care [address] [place] [address] IMMUNOFIXATION URINE Collected: 11/21/2018 Status: F Source: [place] 9:40 AM [facility] REPOSITORY TYPE CODE TESTS RESULT OUT OF RANGE REFERENCE UNITS LAB L3600.4030 . Normal LIZETT Urine Comment: Result Comment: Urine LIZETT shows asymmetrical IgA suggestive of a monoclonal protein. Suggest serum LIZETT and free light chain analysis if clinically indicated. Performed at: [facility] [address] [id number] Director Public Policy: Minh Kwan PhD, Phone: [phone] Performed By: #### L3600.4030 #### [facility] (refer to report for specific site) refer to report for address and phone number CONSULTATION Observed: 11/21/2018 Status: F Source: [place] 9:05 AM [facility] REPOSITORY [facility] Medical Records Department [address] [place] [address] Consultation 11/20/18 0707 MR#: [id number] Acct: [id number] Name: JIMMY BUTLER Rep #: [id number] : 1950 68 From: Jet Arnett MD PCP: Sally Allison MD Status: ADM IN Y Location: ICU [id number] Problem List (1) Elevated troponin Status: Acute (2) Acute on chronic respiratory failure with hypercapnia Status: Acute (3) Severe dehydration Status: Acute (4) Acute encephalopathy Status: Acute (5) Acute on chronic respiratory failure with hypoxia and hypercapnia Status: Acute (6) PETE (obstructive sleep apnea) Status: Chronic (7) Pleural effusion Status: Inactive (8) Stage 4 very severe COPD by GOLD classification Status: Chronic (9) 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 (10) Chronic respiratory failure Status: Chronic (11) Silicosis Status: Chronic (12) History of implantable cardioverter-defibrillator (ICD) placement Status: Chronic (13) CHF (congestive heart failure) Status: Chronic (14) Hypertension Status: Chronic Reason for Consult Date of Consultation: 12/30/18 Reason for Consultation: Respiratory failure History of Present Illness: The patient is a 68 year old M, with past medical history listed below and well-known to me from the outpatient office, who presented to [facility] on 11/19/2018 secondary to increasing shortness of breath. Patient reportedly had also become very sleepy and confused. Patient reportedly has had no change in his cough or sputum and denied any leg swelling or chest pain. Patient reportedly did have a kyphoplasty of L2 3 weeks ago and has had continued back pain since that time with limited mobility. On presentation to the emergency room, patient was noted to be tachycardic at 106 bpm and 93% on his baseline 4 L nasal cannula. Patient was very slow to respond and noted to be hypernatremic with elevated creatinine at 2.2 and BNP at 343. ABG showed partially compensated hypercarbic respiratory failure. Patient was placed on BiPAP therapy and given DuoNeb therapy. Chest x-ray was not suggestive of any infiltrates. Patient was treated with Rocephin and admitted to the intensive care unit for further evaluation. Patient is not able to provide much additional history at this time. Patient has improved following BiPAP therapy. Patient has been receiving IV fluids and tolerating well. Patient's blood pressure has improved following IV hydration. Patient reportedly was a full code in the ER and this is consistent with outpatient discussions of CODE STATUS. Patient does have a history of a spiculated right upper lobe mass, but there was no significant change compared to 2016. In the office, patient has had issues with cor pulmonale requiring diuretic therapy with subjective improvement. Patient does continue to smoke despite oxygen therapy. Patient is relatively sedentary otherwise. Patient is anticoagulated secondary to A. fib. Patient has had a history in the past of a spontaneous pneumothorax secondary to his advanced COPD. Unable to obtain any further review of systems. 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 Shortness of breath (Chronic) Hypercapnic respiratory failure, chronic (Chronic) Acute and chronic respiratory failure with hypercapnia (Chronic) Paroxysmal atrial fibrillation (Chronic) Chronic respiratory failure (Chronic) Silicosis (Chronic) History of implantable cardioverter-defibrillator (ICD) placement (Chronic) CHF (congestive heart failure) (Chronic) Hypertension (Chronic) Medical History: Medical History (Last Reviewed 11/19/18 @ 21:52 by Alepsh Caro MD) Hypersomnia (Chronic) G47.10 Pleural effusion (Inactive) J90 PETE (obstructive sleep apnea) (Chronic) G47.33 Stage 4 very severe COPD by GOLD classification (Chronic) J44.9 Tobacco abuse (Chronic) Z72.0 in remission 04/2018 Shortness of breath (Chronic) R06.02 Confusion (Resolved) R41.0 Hypercapnic respiratory failure, chronic (Chronic) J96.12 Acute and chronic respiratory failure with hypercapnia (Chronic) J96.22 Paroxysmal atrial fibrillation (Chronic) I48.0 Chronic respiratory failure (Chronic) J96.10 Silicosis (Chronic) J62.8 Acute on chronic systolic (congestive) heart failure (Acute) I50.23 CHF (congestive heart failure) (Chronic) I50.9 Hypertension (Chronic) I10 Pneumothorax on left (Resolved) J93.9 Allergies aspirin Adverse Reaction (Verified 11/19/18 18:24) Upset Stomach Home Medications: Ambulatory Orders Medication Instructions Recorded Finasteride [Proscar] 5 mg PO DAILY 09/09/15 Apixaban [Eliquis] 5 mg PO BID 06/19/16 Isosorbide Mononitrate [Imdur] 30 mg PO DAILY 06/19/16 Oxygen, Home [Home Oxygen] 3 lpm NASAL DAILY PRN PRN 08/12/16 Surgical History: Surgical History (Last Reviewed 11/19/18 @ 21:52 by Alpesh Caro MD) History of implantable cardioverter-defibrillator (ICD) placement (Chronic) Z95.810 Surgical History: total knee arthroplasty, - - back surgery, brain surgery for aneurysm. ICD insertion Psychiatric History: No pertinent psych hx Smoking Status: Former smoker - *Family History Paternal Family History: Family History (Last Reviewed 11/19/18 @ 21:53 by Alpesh Caro MD) Father Lung disease Brother Cancer History Items: No pertinent history Maternal Family History: Family History (Last Reviewed 11/19/18 @ 21:53 by Alpesh Caro MD) Father Lung disease Brother Cancer History Items: No pertinent history Review of Systems Unable to obtain accurate/complete ROS d/t: See HPI Patient Problems: Active and Suspected Problems (Last Reviewed 11/19/18 @ 21:52 by Alpesh Caro MD) Acute on chronic respiratory failure with hypercapnia (Acute) Severe dehydration (Acute) Acute encephalopathy (Acute) Objective: Chest x-ray was personally reviewed and appears to be at his baseline. Patient CT scan from April was personally reviewed showing spiculated right upper lobe and left upper lobe masses. These were consistent with CT from 2016. - Physical Exam General: - - On BiPAP therapy. Appears older than stated age. Good BiPAP synchrony noted. HEENT: Atraumatic, PERRLA, EOMI, Normocephalic, - - Scleral injection without icterus Oral: No Gingival or Mucosal Lesions/ Ulcerations, Dry Mucosa Neck: Supple, No JVD, No Nodes, Trachea Midline Lungs: No rhonchi, No wheeze, No rales, Diminished, - - Symmetric expansion. No dullness to percussion. Cardiovascular: Normal S1, Normal S2, Irregular Rate, Murmur - Grade 2 out of 6 systolic ejection murmur at the left sternal border, No rub noted, No Gallop Abdomen: Bowel Sounds Present, Soft, Non Tender, Non-Distended Extremities: No cyanosis, Capillary Refill Less than 3 Seconds, Clubbing, Edema - Trace lower extremity Skin: No breakdown, - - Slight petechial rash noted in left antecubital Musculoskeletal: Cachexia, Muscle Wasting Lymphatic: No Cervical, Supraclavicular, or Inguinal Adenopathy Neurological: Cranial nerves II-XII grossly intact, Neuro grossly intact, Motor Exam 5/5 strength throughout Psych/Mental Status: Appropriate, Flat Affect Vital Signs Temp Pulse Resp BP Pulse Ox 37.5 C H 102 H 20 H 106/83 H 100 11/20/18 07:00 11/20/18 07:00 11/20/18 07:00 11/20/18 07:00 11/20/18 07:00 Oxygen Flow Rate (L/min) 6 Oxygen Delivery Method Nasal Cannula Weight: 64.5 kg Body Mass Index (BMI) 19.1 Intake and Output for Last 24 Hours Intake Total 0 / 0 1728 / 1728 Output Total 750 / 750 Balance 0 / 0 978 / 978 Microbiology Past 72 Hours 12/29/18 19:55 Stool Occult Blood (JEANNE) - Final Stool Laboratory Tests Past 24 Hrs WBC RBC Hgb Hct MCV MCH MCHC RDW RDW Differential Plt Count WBC WBC 4.3 L RBC 2.92 L Hgb 8.0 L POC Glucose POC Glucose 119 H 84 Clinical Impression(s) from Imaging Studies Chest X-Ray 11/19/18 18:35 IMPRESSION: Stable hyperexpansion compatible with COPD. No new or acute pathology. Electronically Signed: Jaylon Abarca MD at 20:22 EST , Service support , Assessment/Plan Active and Suspected Problems (Last Reviewed 11/19/18 @ 21:52 by Alpesh Caro MD) Acute on chronic respiratory failure with hypercapnia (Acute) Severe dehydration (Acute) Acute encephalopathy (Acute) RECOMMENDATIONS: 1. Continue BiPAP rescue as necessary 2. Obtain imaging of kyphoplasty 3. Okay to start clears if able to tolerate off BiPAP therapy for over an hour 4. Initiate D5W at low rate 5. Okay to continue baseline medications for rate control 6. No further transfusions IMPRESSIONS: 1. Acute on chronic combined respiratory failure Unclear etiology at this time. Patient is on steroids, bronchodilators and BiPAP therapy at this time. Patient did appear severely dehydrated on presentation and may have developed respiratory muscle fatigue from an attempt to compensate for metabolic acidosis. We will continue with BiPAP rescue as necessary. Empiric antibiotics are not unreasonable initially, but low clinical suspicion for acute infectious etiology. 2. Hypovolemic hypotension Clinical suspicion for dehydration secondary to decreased mobility with recent kyphoplasty. Patient responded well to volume resuscitation and blood pressures are doing better. Patient's creatinine is improved. Patient will be initiated on D5W secondary to hypernatremia. 3. Hypernatremia/hyperchloremia Likely secondary to initial volume resuscitation. Patient will be initiated on D5W. Will need to watch closely given patient's history of congestive heart failure/cor pulmonale. 4. Anemia/chronic A. fib/diabetes mellitus/early dementia/metabolic encephalopathy/acute kidney injury Complicates care, management, recovery and prognosis. Monitor blood sugars closely. No further transfusions are indicated. Patient appears to have prerenal etiology of acute kidney injury. Volume resuscitation has been ordered. Patient can likely be continued on baseline cardiac medications if able to pass a bedside swallow evaluation following at least 1 hour of BiPAP breaks. TIME: 37 minutes critical care time spent addressing patient's acute respiratory failure, hypotension, electrolyte abnormalities, review of all data and collaboration with care team (6 AM to 7 AM) Code Visit 9xxxx: [id number] Critical care first hour 11/21/18 0905 <Electronically signed by Jet Arnett MD> Date Jet Arnett MD Cosigner Signature (if applicable): Date CC: Jet Arnett MD; Alpesh Caro MD; Sally Allison MD Signed Observed: 11/21/2018 Status: F Source: [place] RESPIRATORY PANEL 8:17 AM [facility] MOLECULAR REPOSITORY RP PANEL Normal Reference Range = Not Detected RESULTS CALLED TO CATALINA MCCALLUM 11/21/18 1135 Deja Salmon. REPORT READ BACK BY SAME. Copy of report sent to Infection Control Printer MS#[id number] 11/21/18 2526 JOSHUA. ADENOVIRUS Not Detected HUMAN METAPHNEUMO Not Detected INFLUENZA A Not Detected INFLUENZA A (SUBTYPE H1) Not Detected INFLUENZA A (SUBTYPE H3) Not Detected INFLUENZA B Not Detected PARAINFLUENZA 1 Not Detected PARAINFLUENZA 2 Not Detected PARAINFLUENZA 3 Not Detected PARAINFLUENZA 4 Not Detected RHINOVIRUS Not Detected RSV A Not Detected RSV B Positive for RSV B by NAAT technology NAAT METHOD Testing was performed using nucleic acid amplification ORGANISM 1: RSV B Performed By: #### M100.638 #### [facility] [address] [place], [address] BEDSIDE GLUCOSE Collected: 11/21/2018 Status: F Source: [place] 5:28 AM [facility] REPOSITORY TYPE CODE TESTS RESULT OUT OF REFERENCE UNITS RANGE LAB L501.080 70-110 mg/dL High BEDSIDE GLU 157 Result Comment: MANAGEMENT OF PATIENT CARE PER NURSING PROTOCOL Performed By: #### L501.080 #### [facility] Point of Care [address] [place], [place] [address] PROTHROMBIN TIME W/INR Collected: 11/21/2018 Status: F Source: [place] 3:50 AM [facility] REPOSITORY TYPE CODE TESTS RESULT OUT OF RANGE REFERENCE UNITS LAB L300.4150 11.7-14.9 SECONDS High PROTIME 20.7 LAB L300.4200 Normal INR 1.8 Performed By: #### L300.3900 #### [facility] [address] [place], [place], [address] BASIC METABOLIC Collected: 11/21/2018 Status: F Source: [place] PROFILE (BMP) 3:50 AM [facility] REPOSITORY TYPE CODE TESTS RESULT OUT OF RANGE REFERENCE UNITS LAB L501.0100 74-106 mg/dL High GLU 158 Result Comment: Fasting Glucose result greater than or equal to 126 mg/dL suggests DIABETES MELLITUS per A.D.A. criteria. Please note revised GLUCOSE reference range effective 2017. LAB L501.1000 7-18 mg/dL High BUN 81 LAB L501.1100 0.70-1.30 mg/dL High CREAT,SERUM 1.60 Result Comment: The validity of the calculated GFR AND GFRAA in patients over 70 years has not been determined. Clinical correlation is essential. LAB L501.1110 >60 mL/min Low EST GFR 46 Result Comment: Non- GFR Calc LAB L501.1115 >60 mL/min Low EST GFR - AA 55 Result Comment: GFR Calc LAB L501.1255 ml/min Normal Estimated CRCL 40.10 LAB L501.1300 10-20 RATIO High BUN/CRE 50.6 LAB L501.2200 8.5-10 mg/dL Normal .1 CA 8.7 LAB L501.5300 136-14 mmol/L High 5 NA 148 LAB L501.5600 3.5-5. mmol/L Normal 1 K 4.8 LAB L501.5900 98-107 mmol/L Normal CL 103 LAB L501.6100 21.0-3 mmol/L High 2.0 CO2 38.0 LAB L501.6200 5-15 Normal GAP 7 Performed By: #### L500.2500, L501.5200 #### [facility] [address] [place], [address] MAGNESIUM Collected: 11/21/2018 Status: F Source: [place] 3:50 AM [facility] REPOSITORY TYPE CODE TESTS RESULT OUT OF RANGE REFERENCE UNITS LAB L501.5200 1.6-2.6 mg/dL Normal MG 2.6 Performed By: #### L500.2500, L501.5200 #### [facility] [address] [place], [address] CBC W/DIFF, AUTOMATED Collected: 11/21/2018 Status: F Source: [place] 3:50 AM [facility] REPOSITORY TYPE CODE TESTS RESULT OUT OF RANGE REFERENCE UNITS LAB L100.1000 4.4-11.0 K/mm3 Normal WBC 4.6 LAB L100.1200 4.6-6.2 M/mm3 Low RBC 2.91 LAB L100.1300 13.0-16.5 g/dl Low HGB 7.9 LAB L100.1400 40-54 % Low HCT 27.1 LAB L100.1500 80-94 fL Normal MCV 93.1 LAB L100.1600 27.0-32.0 pg Normal MCH 27.1 LAB L100.1700 32-36 g/gl Low MCHC 29.2 LAB L100.1810 11.6-14.6 % High RDW CV 15.7 LAB L100.1820 35.1-43.9 fl High RDW SD 51.3 LAB L100.1900 150-450 K/mm3 Normal PLT 156 LAB L100.2000 6.2-12.0 fl Normal MPV 10.0 LAB L100.2100 47-70 % High NEUT% 90.6 LAB L100.2200 19-41 % Low LY% 7.2 LAB L100.2300 0-10 % Normal MONO% 2.2 LAB L100.2400 0-5 % Normal EO% 0.0 LAB L100.2500 0-1 % Normal BASO% 0.0 LAB L100.2550 0.0-0.9 % Normal IM GRAN % 0.000 Result Comment: IG% - Immature Granulocytes (promyelocytes, myelocytes and metamyelocytes) > 1% indicates that a LEFT SHIFT is Present. LAB L100.2620 2.0-7.7 X10 3/uL Normal Absolute Neut 4.1 LAB L100.2720 0.83-4.51 X10 3/ul Low Absolute Lymph 0.33 LAB L100.4500 Normal SMEAR COMMENT SCANNED Result Comment: LYMPHOPENIA NOTED LAB L100.7600 Normal HYPOCHROMASIA 2+ LAB L100.8200 Normal OVALOCYTE 2+ LAB L100.8600 Normal TARGET CELLS 1+ Performed By: #### L100.0100 #### [facility] [address] [place], [place], [id number] PHOSPHORUS Collected: 11/21/2018 Status: F Source: [place] 3:50 AM [facility] REPOSITORY TYPE CODE TESTS RESULT OUT OF RANGE REFERENCE UNITS LAB L501.2300 2.5-4.9 mg/dL Normal PHOS 3.3 Performed By: #### L501.2300 #### [facility] [address] [place], [place], [address] RETIC PANEL Collected: 11/21/2018 Status: F Source: [place] 3:50 AM [facility] REPOSITORY TYPE CODE TESTS RESULT OUT OF RANGE REFERENCE UNITS LAB L101.0000 0.5-1.5 % High RETIC 1.82 LAB L101.0060 3.00-15.90 % High IM RET FRACTION 16.00 LAB L101.0090 30-35 pg Low RET-HE 15.7 LAB L101.0110 1.0-7.9 % Normal IPF 4.6 Result Comment: Low PLT + Low IPF suggest a bone marrow production disorder Low PLT + high IPF suggests peripheral destruction (e.g.ITP, TTP, HIT, DIC, autoimmune) or bone marrow recovery Trending of serial IPF measurements is recommended when evaluating for bone marrow respones Value above normal range indicates an increase in RBC cellular response from bone marrow. Performed By: #### L100.9950 #### [facility] [address] [place], [place], [address] FREE T3 Collected: 11/21/2018 Status: F Source: [place] 3:50 AM [facility] REPOSITORY TYPE CODE TESTS RESULT OUT OF RANGE REFERENCE UNITS LAB L501.07051 2.18-3.98 pg/mL Low FREE T3 1.1 Performed By: #### L501.68512, L501.9520, L506.0400, L505.7010 #### [facility] [address] [place], [address] THYROID STIM HORMONE Collected: 11/21/2018 Status: F Source: [place] (TSH) 3:50 AM [facility] REPOSITORY TYPE CODE TESTS RESULT OUT OF RANGE REFERENCE UNITS LAB L501.9520 0.358-3.74 uIU/mL Low TSH 0.06 Performed By: #### L501.54977, L501.9520, L506.0400, L505.7010 #### [facility] [address] [place], [place], [id number] T4 FREE DIRECT Collected: 11/21/2018 Status: F Source: [place] 3:50 AM [facility] REPOSITORY TYPE CODE TESTS RESULT OUT OF RANGE REFERENCE UNITS LAB L506.0400 0.76-1.46 ng/dL Normal T4 FREE 0.99 DIRECT Performed By: #### L501.20623, L501.9520, L506.0400, L505.7010 #### [facility] [address] [place], [place], [id number] RHEUMATOID FACTOR Collected: 11/21/2018 Status: F Source: [place] 3:50 AM [facility] REPOSITORY TYPE CODE TESTS RESULT OUT OF REFERENCE UNITS RANGE LAB L505.7010 <15 IU/mL High RHEUMATOID FAC 130.0 Performed By: #### L501.00102, L501.9520, L506.0400, L505.7010 #### [facility] [address] [place], [address] BEDSIDE GLUCOSE Collected: 11/21/2018 Status: F Source: [place] 12:00 AM [facility] REPOSITORY TYPE CODE TESTS RESULT OUT OF REFERENCE UNITS RANGE LAB L501.080 70-110 mg/dL High BEDSIDE GLU 152 Result Comment: MANAGEMENT OF PATIENT CARE PER NURSING PROTOCOL Performed By: #### L501.080 #### [facility] [place] [address] BELKIS W/ REFLEX MULT Collected: 11/21/2018 Status: F Source: [place] CONFIRM 12:00 AM [facility] REPOSITORY TYPE CODE TESTS RESULT OUT OF RANGE REFERENCE UNITS LAB L3100.5475 Negative High Positive BELKIS-DIRECT LAB L3100.5500 0-9 IU/mL <1 Normal dsDNA AB Result Comment: Negative <5 Equivocal 5 - 9 Positive >9 LAB L3100.9200 0.0-0.9 AI Anti-SS-A High 1.2 LAB L3100.9300 0.0-0.9 AI Anti-SS-B Normal < 0.2 LAB L3410.0427 0.0-0.9 AI ANTICHROMATIN Normal <0.2 LAB L3410.0500 0.0-0.9 AI ANTI-MICHELLE Normal <0.2 LAB L3410.0700 0.0-0.9 AI ANTISCLER Normal <0.2 LAB L3410.1200 0.0-0.9 AI STATISTICAL METHODS TEACHER Ab Normal 0.4 LAB L3410.1300 0.0-0.9 AI ESPARZA Ab Normal <0.2 LAB L3410.4010 0.0-0.9 AI ANTI-CENT B Normal <0.2 LAB L3410.4150 . COMMENT Normal Comment Result Comment: Autoantibody Disease Association Condition Frequency --------- Antinuclear Antibody, SLE, mixed connective Direct (BELKIS-D) tissue diseases --------- dsDNA SLE 40 - 60% --------- Chromatin Drug induced SLE 90% SLE 48 - 97% --------- SSA (Ro) SLE 25 - 35% Sjogren's Syndrome 40 - 70% Lupus 100% --------- SSB (La) SLE 10% Sjogren's Syndrome 30% --------- Sm (anti-Esparza) SLE 15 - 30% --------- STATISTICAL METHODS TEACHER Mixed Connective Tissue Disease 95% (U1 nRNP, SLE 30 - 50% anti-ribonucleoprotein) Polymyositis and/or Dermatomyositis 20% --------- Scl-70 (antiDNA Scleroderma (diffuse) 20 - 35% topoisomerase) Crest 13% --------- Michelle-1 Polymyositis and/or Dermatomyositis 20 - 40% --------- Centromere B Scleroderma - Crest variant 80% Performed at: - [facility] [address] [id number] Director Public Policy: Minh Kwan PhD, Phone: [phone] Performed By: #### L3100.5450 #### [facility] (refer to report for specific site) refer to report for address and phone number BEDSIDE GLUCOSE Collected: 11/20/2018 Status: F Source: [place] 5:36 PM [facility] REPOSITORY TYPE CODE TESTS RESULT OUT OF REFERENCE UNITS RANGE LAB L501.080 70-110 mg/dL High BEDSIDE GLU 139 Result Comment: MANAGEMENT OF PATIENT CARE PER NURSING PROTOCOL Performed By: #### L501.080 #### [facility] [place], [place] [address] BASIC METABOLIC Collected: 11/20/2018 Status: F Source: [place] PROFILE (BMP) 11:50 AM [facility] REPOSITORY TYPE CODE TESTS RESULT OUT OF RANGE REFERENCE UNITS LAB L501.0100 74-106 mg/dL High GLU 142 Result Comment: Fasting Glucose result greater than or equal to 126 mg/dL suggests DIABETES MELLITUS per A.D.A. criteria. Please note revised GLUCOSE reference range effective 2017. LAB L501.1000 7-18 mg/dL High BUN 82 LAB L501.1100 0.70-1.30 mg/dL High CREAT,SERUM 1.61 Result Comment: The validity of the calculated GFR AND GFRAA in patients over 70 years has not been determined. Clinical correlation is essential. LAB L501.1110 >60 mL/min Low EST GFR 45 Result Comment: Non- GFR Calc LAB L501.1115 >60 mL/min Low EST GFR - AA 55 Result Comment: GFR Calc LAB L501.1255 ml/min Normal Estimated CRCL 38.95 LAB L501.1300 10-20 RATIO High BUN/CRE 50.9 LAB L501.2200 8.5-10 mg/dL Normal .1 CA 8.5 LAB L501.5300 136-14 mmol/L High 5 NA 151 LAB L501.5600 3.5-5. mmol/L Normal 1 K 4.3 LAB L501.5900 98-107 mmol/L High CL 108 LAB L501.6100 21.0-3 mmol/L High 2.0 CO2 40.0 LAB L501.6200 5-15 Low GAP 3 Performed By: #### L500.2500 #### [facility] [address] [place], [address] BEDSIDE GLUCOSE Collected: 11/20/2018 Status: F Source: [place] 11:41 AM [facility] REPOSITORY TYPE CODE TESTS RESULT OUT OF REFERENCE UNITS RANGE LAB L501.080 70-110 mg/dL High BEDSIDE GLU 134 Result Comment: MANAGEMENT OF PATIENT CARE PER NURSING PROTOCOL Performed By: #### L501.080 #### [facility] Point of Care [address] [facility] [place] [address] LUMBAR SPINE 2 OR 3 Observed: 11/20/2018 Status: F Source: [place] VIEWS 6:26 AM [facility] REPOSITORY [facility] Services [address] [place] [address] Lumbar Spine 2 or 3 Views MR#: [id number] Acct: [id number] Name: JIMMY BUTLER Rep #: [id number] : 1950 M 68 From: Bay Johansen PCP: Sally Allison MD Status: ADM IN Study: Lumbar Spine 2 or 3 Views Date of Exam: 11/20/18 Exam# [id number] Ordering Dr: Jet Arnett MD STUDY: X-RAY - LUMBAR SPINE REASON FOR EXAM: Male, 68 years old. recent kyphoplasty, pain in back since TECHNIQUE: 2 view(s) of the lumbar spine were obtained. COMPARISON: October 10, 2018 FINDINGS: Normal lumbar lordosis. There is vertebroplasty at L2 now. There is superior endplate depression at L1 now. There is multilevel endplate spondylosis of the lumbar vertebrae. There is multi-level degenerative disc disease with multi-level disc space narrowing. The soft tissue structures are unremarkable. RAD/Lumbar Spine 2 or 3 Views IMPRESSION: Mild acute superior endplate fracture at L2. Electronically Signed: Bay Johansen MD at 14:05 EST Tel , Service support , CC: Jet Arnett MD; Sally Allison MD [employer]ocket [employer] Crewmember: Signed BEDSIDE GLUCOSE Collected: 11/20/2018 Status: F Source: [place] 5:17 AM [facility] REPOSITORY TYPE CODE TESTS RESULT OUT OF REFERENCE UNITS RANGE LAB L501.080 70-110 mg/dL High BEDSIDE GLU 119 Result Comment: MANAGEMENT OF PATIENT CARE PER NURSING PROTOCOL Performed By: #### L501.080 #### [facility] Point [place] [address] CBC-COMPLETE BLOOD CNT Collected: 11/20/2018 Status: F Source: [place] NO DIFF 4:50 AM [facility] REPOSITORY TYPE CODE TESTS RESULT OUT OF RANGE REFERENCE UNITS LAB L100.1000 4.4-11.0 K/mm3 Low WBC 4.3 LAB L100.1200 4.6-6.2 M/mm3 Low RBC 2.92 LAB L100.1300 13.0-16.5 g/dl Low HGB 8.0 LAB L100.1400 40-54 % Low HCT 27.3 LAB L100.1500 80-94 fL Normal MCV 93.5 LAB L100.1600 27.0-32.0 pg Normal MCH 27.4 LAB L100.1700 32-36 g/gl Low MCHC 29.3 LAB L100.1810 11.6-14.6 % High RDW CV 15.5 LAB L100.1820 35.1-43.9 fl High RDW SD 49.6 LAB L100.1900 150-450 K/mm3 Low PLT 135 LAB L100.2000 6.2-12.0 fl Normal MPV 9.7 Performed By: #### L100.0500 #### [facility] [address] [place], [place], [address] BASIC METABOLIC Collected: 11/20/2018 Status: F Source: [place] PROFILE (BMP) 4:50 AM [facility] REPOSITORY TYPE CODE TESTS RESULT OUT OF RANGE REFERENCE UNITS LAB L501.0100 74-106 mg/dL Normal GLU 106 Result Comment: Fasting Glucose result from 100 to 125 mg/dL suggests IMPAIRED HOMEOSTASIS per A.D.A. criteria. Please note revised GLUCOSE reference range effective 2017. LAB L501.1000 7-18 mg/dL High BUN 81 LAB L501.1100 0.70-1.30 mg/dL High CREAT,SERUM 1.61 Result Comment: The validity of the calculated GFR AND GFRAA in patients over 70 years has not been determined. Clinical correlation is essential. LAB L501.1110 >60 mL/min Low EST GFR 45 Result Comment: Non- GFR Calc LAB L501.1115 >60 mL/min Low EST GFR - AA 55 Result Comment: GFR Calc LAB L501.1255 ml/min Normal Estimated CRCL 38.95 LAB L501.1300 10-20 RATIO High BUN/CRE 50.3 LAB L501.2200 8.5-10 mg/dL Normal .1 CA 8.5 LAB L501.5300 136-14 mmol/L High 5 NA 155 LAB L501.5600 3.5-5. mmol/L Normal 1 K 4.6 LAB L501.5900 98-107 mmol/L High CL 109 LAB L501.6100 21.0-3 mmol/L High 2.0 CO2 41.0 LAB L501.6200 5-15 Normal GAP 5 Performed By: #### L500.2500 #### [facility] [address] [place], [place], [address] TROPONIN-I Collected: 11/20/2018 Status: F Source: [place] 2:22 AM [facility] REPOSITORY Order Comment: 'TROP' Serial specimen #1, #2 or #3: 3 TYPE CODE TESTS RESULT OUT OF RANGE REFERENCE UNITS LAB L501.4010 <0.045 ng/mL High 0.325 TROPONIN-I Result Comment: TROPONIN-I EXPECTED VALUES <0.045 Negative 0.045 - 0.590 Consistent with Cardiac Damage > OR = 0.600 Critical Value Not every elevated troponin is indicative of [place]. These values should be used with clinical judgement in examining the patient's clinical picture for diagnosis. To establish a diagnosis of [place] versus myocardial injury, there must be a demonstrated rise and/or fall in the troponin values, in addition to ischemic symptoms, EKG changes, new regional wall motion abnormality, and/or angiographical evidence. PLEASE NOTE: REFERENCE RANGES EDITED 18 Performed By: #### L501.4010 #### [facility] [address] [facility] [place], [place], [address] BEDSIDE GLUCOSE Collected: 11/20/2018 Status: F Source: [place] 1:15 AM [facility] REPOSITORY TYPE CODE TESTS RESULT OUT OF RANGE REFERENCE UNITS LAB L501.080 70-110 mg/dL Normal BEDSIDE GLU 84 Result Comment: MANAGEMENT OF PATIENT CARE PER NURSING PROTOCOL Performed By: #### L501.080 #### [facility] Point of Care [address] [facility] [place], [place] [address] BASIC METABOLIC Collected: 11/20/2018 Status: F Source: [place] PROFILE (BMP) 12:35 AM [facility] REPOSITORY TYPE CODE TESTS RESULT OUT OF RANGE REFERENCE UNITS LAB L501.0100 74-106 mg/dL Normal GLU 98 Result Comment: Please note revised GLUCOSE reference range effective 2017. LAB L501.1000 7-18 mg/dL High BUN 88 LAB L501.1100 0.70-1.30 mg/dL High CREAT,SERUM 1.73 Result Comment: The validity of the calculated GFR AND GFRAA in patients over 70 years has not been determined. Clinical correlation is essential. LAB L501.1110 >60 mL/min Low EST GFR 42 Result Comment: Non- GFR Calc LAB L501.1115 >60 mL/min Low EST GFR - AA 50 Result Comment: GFR Calc LAB L501.1255 ml/min Normal Estimated CRCL 35.01 LAB L501.1300 10-20 RATIO High BUN/CRE 50.9 LAB L501.2200 8.5-10 mg/dL Low .1 CA 8.2 LAB L501.5300 136-14 mmol/L High 5 NA 150 LAB L501.5600 3.5-5. mmol/L Normal 1 K 4.8 Result Comment: Slight Hemolysis, Result may be falsely increased. LAB L501.5900 98-107 mmol/L High CL 108 LAB L501.6100 21.0-32.0 mmol/L High CO2 40.0 LAB L501.6200 5-15 Low 2 GAP Performed By: #### L500.2500, L501.2300, L501.5200 #### [facility] [address] [place], [place], [address] PHOSPHORUS Collected: 11/20/2018 Status: F Source: [place] 12:35 AM [facility] REPOSITORY TYPE CODE TESTS RESULT OUT OF RANGE REFERENCE UNITS LAB L501.2300 2.5-4.9 mg/dL Normal PHOS 3.8 Performed By: #### L500.2500, L501.2300, L501.5200 #### [facility] [address] [place], [place], [address] MAGNESIUM Collected: 11/20/2018 Status: F Source: [place] 12:35 AM [facility] REPOSITORY TYPE CODE TESTS RESULT OUT OF RANGE REFERENCE UNITS LAB L501.5200 1.6-2.6 mg/dL Normal MG 2.5 Result Comment: Slight Hemolysis, Result may be falsely increased. Performed By: #### L500.2500, L501.2300, L501.5200 #### [facility] [address] [place], [place], [address] TROPONIN-I Collected: 11/20/2018 Status: F Source: [place] 12:35 AM [facility] REPOSITORY Order Comment: 'TROP' Serial specimen #1, #2 or #3: 2 TYPE CODE TESTS RESULT OUT OF RANGE REFERENCE UNITS LAB L501.4010 <0.045 ng/mL High 0.348 TROPONIN-I Result Comment: TROPONIN-I EXPECTED VALUES <0.045 Negative 0.045 - 0.590 Consistent with Cardiac Damage > OR = 0.600 Critical Value Not every elevated troponin is indicative of [place]. These values should be used with clinical judgement in examining the patient's clinical picture for diagnosis. To establish a diagnosis of [place] versus myocardial injury, there must be a demonstrated rise and/or fall in the troponin values, in addition to ischemic symptoms, EKG changes, new regional wall motion abnormality, and/or angiographical evidence. PLEASE NOTE: REFERENCE RANGES EDITED 18 Performed By: #### L501.4010 #### [facility] [address] [place], [address] IRON+IRON BINDING Collected: 11/20/2018 Status: F Source: [place] CAPACITY 12:35 AM [facility] REPOSITORY TYPE CODE TESTS RESULT OUT OF RANGE REFERENCE UNITS LAB L503.6075 250-450 ug/dL Low TIBC 218 LAB L503.6150 65-175 ug/dL Low IRON 36 Result Comment: Slight Hemolysis, Result may be falsely increased. LAB L503.6250 15.0-55.0 % IRON Normal SATURATION 16.5 Performed By: #### L503.6030, L503.6550, L506.0250 #### [facility] [address] [place], [address] FERRITIN Collected: 11/20/2018 Status: F Source: [place] 12:35 AM [facility] REPOSITORY TYPE CODE TESTS RESULT OUT OF RANGE REFERENCE UNITS LAB L503.6550 26-388 ng/mL Normal FERRITIN 269 Performed By: #### L503.6030, L503.6550, L506.0250 #### [facility] [address] [place], [address] FOLATES, (FOLIC ACID) Collected: 11/20/2018 Status: F Source: [place] 12:35 AM [facility] REPOSITORY TYPE CODE TESTS RESULT OUT OF RANGE REFERENCE UNITS LAB L506.0250 3.1-55.4 ng/mL Normal FOLATES 24.70 Result Comment: Slight Hemolysis, Result may be falsely increased. Performed By: #### L503.6030, L503.6550, L506.0250 #### [facility] [address] [place], [address] VITAMIN B12 Collected: 11/20/2018 Status: F Source: [place] 12:35 AM [facility] REPOSITORY TYPE CODE TESTS RESULT OUT OF REFERENCE UNITS RANGE LAB L503.0105 211-911 pg/mL High Vitamin B12 > 2000 Performed By: #### L503.0105 #### [facility] [address] [place], [address] HISTORY AND PHYSICAL Observed: 11/20/2018 Status: F Source: [place] EXAM 12:32 AM [facility] REPOSITORY [facility] Medical Records Department [address] [place] [address] History and Physical 11/19/18 2102 MR#: [id number] Acct: [id number] Name: JIMMY BUTLER Rep #: [id number] : 1950 68 From: Alpesh Caro MD PCP: Sally Allison MD Status: ADM IN Y Location: ICU ICU01-1 ADDENDUM by Alpesh Caro MD on 11/20/18 at 0032 Code Visit Echocardiogram ordered in a.m. for severe hypertension; shortness of breath acute encephalopathy with EKG changes and elevated troponin. CORRECTED TO : Echocardiogram ordered in a.m. for severe hypotension; shortness of breath acute encephalopathy with EKG changes and elevated troponin. Because his blood pressure is picking up into the normal range maintenance IV normal saline will be discontinued as patient receives 2 units of packed red blood cells. 11/20/18 003 <Electronically signed by Alpesh Caro MD> Date Alpesh Caro MD cc: Alpesh Caro MD; Sally Allison MD * Signed ADDENDUM by Alpesh Caro MD on 11/19/18 at 2238 Code Visit Echocardiogram ordered in a.m. for severe hypertension; shortness of breath acute encephalopathy with EKG changes and elevated troponin.. 11/19/182237 <Electronically signed by Alpesh Caro MD> Date Alpesh Caro MD cc: Alpesh Caro MD; Sally Allison MD * Signed Problem List (1) Acute on chronic respiratory failure with hypercapnia Status: Acute (2) Severe dehydration Status: Acute (3) COPD exacerbation Status: Acute (4) Acute encephalopathy Status: Acute (5) Acute on chronic respiratory failure with hypoxia and hypercapnia Status: Acute History of Present Illness Date of Admission: 11/19/18 Chief Complaint: lethargy History was taken from the emergency department doctor because at the time of assessment patient was on BiPAP and who came to the emergency department with patient was not present at that time. The patient is a 68 year old M with a significant history of CAD; COPD; type 2 diabetes; hypertension; hypercholesterolemia; and dementia who presented with increased shortness of breath and weakness for a couple of days. Associated with symptoms is confusion and increased somnolence. Patient had a compression fracture and he had a kyphoplasty with Dr. Weiss. He has continued to have pain after the procedure. At emergency department his hemoglobin was 7.0. The patient is on Eliquis for A. fib. EKG at the emergency department shows some ST changes and he had a troponin of 0.4. 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 Shortness of breath (Chronic) Hypercapnic respiratory failure, chronic (Chronic) Acute and chronic respiratory failure with hypercapnia (Chronic) Paroxysmal atrial fibrillation (Chronic) Chronic respiratory failure (Chronic) Silicosis (Chronic) History of implantable cardioverter-defibrillator (ICD) placement (Chronic) CHF (congestive heart failure) (Chronic) Hypertension (Chronic) Medical History: Medical History (Last Reviewed 11/19/18 @ 21:52 by Alpesh Caro MD) Hypersomnia (Chronic) G47.10 Pleural effusion (Inactive) J90 PETE (obstructive sleep apnea) (Chronic) G47.33 Stage 4 very severe COPD by GOLD classification (Chronic) J44.9 Tobacco abuse (Chronic) Z72.0 in remission 04/2018 Shortness of breath (Chronic) R06.02 Confusion (Resolved) R41.0 Hypercapnic respiratory failure, chronic (Chronic) J96.12 Acute and chronic respiratory failure with hypercapnia (Chronic) J96.22 Paroxysmal atrial fibrillation (Chronic) I48.0 Chronic respiratory failure (Chronic) J96.10 Silicosis (Chronic) J62.8 Acute on chronic systolic (congestive) heart failure (Acute) I50.23 CHF (congestive heart failure) (Chronic) I50.9 Hypertension (Chronic) I10 Pneumothorax on left (Resolved) J93.9 Allergies aspirin Adverse Reaction (Verified 11/19/18 18:24) Upset Stomach Home Medications: Ambulatory Orders Medication Instructions Recorded Finasteride [Proscar] 5 mg PO DAILY 09/09/15 Apixaban [Eliquis] 5 mg PO BID 06/19/16 Isosorbide Mononitrate [Imdur] 30 mg PO DAILY 06/19/16 Oxygen, Home [Home Oxygen] 3 lpm NASAL DAILY PRN PRN 08/12/16 Surgical History: Surgical History (Last Reviewed 11/19/18 @ 21:52 by Alpesh Caro MD) History of implantable cardioverter-defibrillator (ICD) placement (Chronic) Z95.810 Surgical History: total knee arthroplasty, - - back surgery, brain surgery for aneurysm. ICD insertion Psychiatric History: No pertinent psych hx Smoking Status: Former smoker - *Family History Paternal Family History: Family History (Last Reviewed 11/19/18 @ 21:53 by Alpesh Caro MD) Father Lung disease Brother Cancer History Items: No pertinent history Maternal Family History: Family History (Last Reviewed 11/19/18 @ 21:53 by Alpesh Caro MD) Father Lung disease Brother Cancer History Items: No pertinent history Review of Systems Unable to obtain accurate/complete ROS d/t: since patient is lethargic and he is on bipap. VTE Information - Inpt Only VTE Present on Admission: No VTE Mechan Device Prophylaxis: SCD's, None VTE Pharm Prophylaxis ordered?: Yes Patient Problems: Active and Suspected Problems (Last Reviewed 11/19/18 @ 21:52 by Alpesh Caro MD) Acute on chronic respiratory failure with hypercapnia (Acute) Severe dehydration (Acute) Acute encephalopathy (Acute) - Physical Exam General: Lethargic HEENT: Atraumatic, PERRLA, Normocephalic Neck: Supple, No JVD, Negative Carotid Bruits Lungs: Rhonchi, Tachypneic Cardiovascular: Regular rate, No murmurs Abdomen: Bowel Sounds Present, Soft, Non Tender, - - Emergency department doctor reported unremarkable rectal exams. Extremities: No edema, Capillary Refill Less than 3 Seconds Skin: No rashes, No breakdown Musculoskeletal: No Tenderness to Palpation of Joints or Extremities Neurological: - - Lethargic Psych/Mental Status: - - Patient was lethargic on BiPAP. Vital Signs Temp Pulse Resp BP Pulse Ox 96.9 F L 92 18 100/75 97 11/19/18 20:40 11/19/18 20:40 11/19/18 20:40 11/19/18 20:40 11/19/18 20:40 Oxygen Flow Rate (L/min) 4 Oxygen Delivery Method Bi-pap Weight: 65.771 kg Body Mass Index (BMI) 20.2 Microbiology Past 72 Hours 11/19/18 19:55 Stool Occult Blood (JEANNE) - Final Stool Laboratory Tests Past 24 Hrs WBC 5.3 RBC 2.71 L Hgb 7.0 L WBC RBC Hgb Hct MCV MCH MCHC RDW WBC RBC Hgb Hct MCV MCH Assessment/Plan All Active Problems (Last Reviewed 11/19/18 @ 21:52 by Alpesh Caro MD) Elevated troponin (Acute) Acute on chronic respiratory failure with hypercapnia (Acute) Severe dehydration (Acute) Acute encephalopathy (Acute) Pneumothorax (Acute) COPD exacerbation (Acute) Acute on chronic respiratory failure with hypoxia and hypercapnia (Acute) Confusion (Resolved) Acute on chronic systolic (congestive) heart failure (Acute) Pneumothorax on left (Resolved) The patient is a 68 year old M with a significant history of CAD; COPD; type 2 diabetes; hypertension; hypercholesterolemia; and dementia who presented with increased shortness of breath and weakness for a couple of days; and found to be anemic; with severely elevated creatinine and with severe hypotension; abnormal urinalysis; EKG changes and slightly elevated troponin. Acute encephalopathy Likely due to CO2 narcosis and severe dehydration BiPAP was started from the emergency department; continue. Acute COPD exacerbation Will order Solu-Medrol 125 mg x1 and prednisone 40 mg daily. Aakash scheduled Albuterol as needed Severe dehydration Sodium on admission was 149; his BUN was 97. Review of records shows that his BUN 3 months ago was 44 His creatinine on admission was 2.21. Review of records show that his creatinine about 3 months ago was 1.42. His baseline creatinine is about 1.25. Patient received normal saline IV bolus at emergency department. We will continue patient on maintenance infusion normal saline. Because of anemia to packed red blood cells was ordered for the emergency department the patient will receive. Severe hypotension On admission his blood pressure was 79/56. His blood pressures responded to IV fluids but still maintain low with systolic blood pressure of of 89-100. Emergency department doctor reports that after patient does not have high blood pressure and is highest home blood pressure is around 120. Patient does not meet criteria for sepsis at this time. Blood cultures was ordered from the emergency department. Urine culture was ordered from emergency department. Occult stool was ordered from emergency department. Lactic acid at emergency department was 1.2. RAFAEL On admission his creatinine was at 2.21. Review of records showed a baseline creatinine of around 1.25. BUN over creatinine is severely elevated. Likely prerenal azotemia from dehydration. IV hydration and blood administration as above. Trend BMP. Severe anemia Would hold Eliquis for A. fib at this time. We will get iron studies; folate and vitamin B12. Blood administration as above Repeat CBC in a.m Protonix twice daily Occult stool ordered from the ED. Acute cystitis Preliminary urinalysis at emergency department showed elevated leukocyte esterase. Patient has been started on ceftriaxone from the emergency department. We will continue ceftriaxone Chronic A. fib Eliquis held at this time because of anemia Digoxin level 1.36 comparatively elevated especially in the setting of RAFAEL. We will hold digoxin at this time. Diabetes mellitus Admission his blood glucose was not within goal. Because of his severe encephalopathy and on BiPAP we will keep patient n.p.o. and will start patient on low dose correction scale insulin every 4 hours. EKG changes with elevated troponin Is elevated troponin could be due to RAFAEL; or dehydration Trend troponin Repeat EKG in a.m. Dementia Home medication held because of acute encephalopathy. DVT prophylaxis SCD ordered. Miscellaneous: Because of encephalopathy all his p.o. medications were held. Code Visit Inpatient E AND M: 73660 Init Hosp 11/19/181 <Electronically signed by Alpesh Caro MD> Date Alpesh Caro MD Cosigner Signature: Date (if applicable) CC: Alpesh Caro MD; Sally Allison MD Signed EMERGENCY DEPARTMENT Observed: 11/19/2018 Status: F Source: [place] SUMMARY 11:54 PM [facility] REPOSITORY [facility] Medical Records Department [address] [place] [address] Emergency Department Summary 11/19/182214 MR#: [id number] Acct: [id number] Name: JIMMY BUTLER Rep #: [id number] : 1950 68 From: Joseph Davis MD PCP: Sally Allison MD Status: ADM IN - ER Visit Summary Date of Service: 11/19/18 Chief Complaint: Dyspnea History of Present Illness: The patient is a 68 M who was brought in from home for increasing shortness of breath that started this morning. It has been continuous and severe. He has been sleepy and confused and so some of the history is obtained from his . He is currently denying any cough or sputum. Denies any chest pain. Denies any leg swelling. He has an extensive medical history including respiratory failure, hypercapnia, obstructive sleep apnea, CHF, COPD, pleural effusions, smoking, A. fib, low blood pressure. He takes digoxin and Eliquis and is on 3 L of oxygen at home among his other medications. His reported that he had a kyphoplasty 3 weeks ago and has continued back pain since the kyphoplasty. Physical Examination: Afebrile. Heart rate 106 and respiratory rate 28. 93% on nasal cannula, 4 L. Initial blood pressure was 121/107. The patient was somnolent with his eyes mostly closed, but he aroused to voice. He was oriented. HEENT exam unremarkable. Heart tachycardic but regular. Lungs show diminished sounds throughout. Abdomen soft and nontender. Back was nontender. Rectal exam was nontender with no gross blood. Lower extremities show good symmetric strength and sensation. Normal reflexes, symmetric. Test Results: EKG showed sinus rhythm at a rate of 101 with PVCs and nonspecific ST and T wave changes. CBC unremarkable except for a white count of 7.0. Sodium 149, CO2 44, glucose 215, BUN 97, creatinine 2.21, INR 2.4. Troponin 0 0.408, BNP 343, lactate 1.2. Urinalysis showed signs of infection. Initial pH 7.329, CO2 89.1 and O2 122. Cultures pending. Hemoccult testing negative. Chest x-ray showed chronic changes, COPD. Emergency Department Course and Treatment: Patient presents with signs of respiratory failure, history of COPD and hypercapnia. He was started on BiPAP and placed on a monitor. He was treated with a DuoNeb. Symptomatically, he felt much better. Chest x-ray showed no evidence of pneumonia. He is not having pneumonia symptoms and does not have a fever or leukocytosis. Patient had an EKG concerning for some ischemia. His troponin was elevated at 0.408. He is denying any chest pain. Hemoglobin is 7. He has no history of bleeding or anemia. Type and cross was ordered and I ordered 2 units of packed red cells. He and his consented to this. His Hemoccult testing was negative. I am not sure where he is losing blood. Again, he is on Eliquis. Urinalysis showed signs of infection. He needs criteria for severe sepsis. His lactate was normal. He did have some hypotension, but his map was never below 65. His states that he is always hypotensive. I looked at his old records. He does tend to run around 100 systolic and rarely he is as high as 120 systolic. His blood pressure and heart rate improved with IV fluids. I suspect he will also improve with blood transfusion. He was treated with Rocephin. Culture pending. BUN 97 and creatinine 2.21. The patient received IV fluids. Patient was discussed with the hospitalist. Hospitalist requested central line placement for hypotension and possible need for pressors. I discussed this with the patient and his . She told me that he always has low blood pressure and does not understand why we would want to give pressors. I explained this. She does not want a central line at this point. He has [address] She said that she would consent for central line if he absolutely needed it but would not want one now unless it was truly an emergency. I discussed this with the hospitalist. I also spoke with the hot air furnace installer repairer, and the patient will be admitted to the ICU. I spoke with the patient's on multiple occasions. I expressed that he is critically ill and will require admission to the ICU because he has multiple serious medical issues going on right now. Patient is full code. Treatment Plan: As above Disposition: Admission to ICU Impression: 1. Acute respiratory failure 2. Severe sepsis 3. UTI 4. Elevated troponin 5. Anemia 6. Acute kidney injury This note was generated with [employer] dictation software. It may contain incorrect words, spelling, and punctuation that were not noted in review of the chart prior to signing ED Disposition - Plan for ED Patient: Chief Complaint: Shortness of Breath What to do if you have Problems For any increased pain, shortness of breath, bleeding, nausea or vomiting, chest pain, or any unexpected problems, contact your Primary Care Provider. Call [facility] ([phone]) or report to the closest Emergency Room. Call 911 if necessary. 11/19/18 9314 <Electronically signed by Joseph Davis MD> Date Joseph Davis MD Cosigner Signature (If Indicated): Date CC: Sally Allison MD BLOOD GASES BY CPS Collected: 11/19/2018 Status: F Source: [place] 9:51 PM [facility] REPOSITORY TYPE CODE TESTS RESULT OUT OF RANGE REFERENCE UNITS LAB L9000.9990 Normal BLD GAS TYPE ART LAB L9001.1000 Normal SITE L Radial LAB L9001.1010 Normal ZACHARY TEST POS LAB L9001.1050 O2 Normal Delivery Dev Bi / C PAP LAB L9001.1070 RR Normal 12 LAB L9001.1074 Normal FI02 45 LAB L9001.1088 Normal IPAP 14 LAB L9001.1090 Normal EPAP 6 LAB L9001.1104 Normal Results To ED LAB L9001.1105 Normal Time Given 2145 LAB L9001.1110 7.35-7.45 pH Normal - I-STAT 7.35 LAB L9001.1210 35-45 mmHg High alert pCO2 - ISTAT 80.1 LAB L9001.1310 75-100 mmHG Normal PO2 I-STAT 88 LAB L9001.2300 22-26 mmol/L High HCO3 ISTAT 44.0 LAB L9001.2400 -2 to +2 mmol/L High BE ISTAT 18 LAB L9001.2415 mmol/L Normal TOTAL CO2 46 ISTAT LAB L9001.2425 95-99 % Normal SO2 ISTAT 95 Performed By: #### L9000.0800 #### [facility] Point of Care [address] [place] [address] URINALYSIS, COMPLETE Collected: 11/19/2018 Status: F Source: [place] 9:03 PM [facility] REPOSITORY Order Comment: Order Date: 11/19/18 How was Urine Obtained? CUPOLA TENDER HELPER TO SPECIFY TYPE CODE TESTS RESULT OUT OF RANGE REFERENCE UNITS LAB L400.3000 Yellow COLOR Normal Yellow LAB L400.3050 Clear Normal CLARITY Sl. Cloudy LAB L400.3200 Normal mg/dl Normal GLUCOSE, UR Normal LAB L400.3300 Negative mg/dL Normal BILIRUBIN URINE Negative LAB L400.3400 Negative mg/dl Normal KETONE UR Negative LAB L400.3465 1.002-1.030 Normal SP.GR. DIPSTX 1.010 LAB L400.3550 5.0 - 8.0 pH UR Normal 5.0 LAB L400.3600 Negative mg/dl PROT Normal DIPSTX Negative LAB L400.3700 Normal mg/dl Normal UROBILI Normal LAB L400.3750 Negative Normal NITRITE UR Negative LAB L400.3780 Negative /ul Normal OCCULT BLOOD-UR Negative LAB L400.3800 Negative /ul High LEUK ESTERASE 500 LAB L400.4050 0-5 /hpf WBC Normal 5-10 SEEN LAB L400.4100 0-5 /hpf 0 Normal RBC-UA SEEN LAB L400.4150 0-5 /hpf SQUAM Normal EPI 0-5 SEEN LAB L400.4300 None Seen /hpf 4+ Normal BACTERIA LAB L400.4350 <or=2+ /hpf 1+ Normal MUCUS, URINE Performed By: #### L400.0001 #### [facility] [address] [place], [address] Observed: 11/19/2018 Status: F Source: [place] CULTURE, URINE 9:03 PM [facility] REPOSITORY Order Date: 11/19/18 Urine Culture ORGANISM 1: Klebsiella pneumoniae sp pneum [place] Count >100,000 Klebsiella pneumoniae sp pneum: REACTION Amoxacillin/Clavulanic Acid $ <=2 S Ampicillin $ >=32 R Ampicillin/Sulbactam $ 4 S Cefazolin $ <=4 S Cefepime $ <=1 S Ceftriaxone $ <=1 S Ciprofloxacin $ <=0.25 S ESBL - Ertapenim $$$ <=0.5 S Gentamicin $ <=1 S Imipenem *NF <=0.25 S Levofloxacin $ <=0.12 S Nitrofurantoin $ 32 S Piperacillin/Tazobactam $$ <=4 S Tobramycin $ <=1 S Trimethoprim/Sulfametho $ <=20 S (NF) indicates non-formulary drug at [facility]. Approval by Infectious Disease Specialist required before non-formulary drugs may be ordered and/or dispensed. Performed By: #### M100.0650 #### [facility] [address] [facility] [place], [place], [address] DIGOXIN LEVEL Collected: 11/19/2018 Status: F Source: [place] 8:14 PM [facility] REPOSITORY TYPE CODE TESTS RESULT OUT OF RANGE REFERENCE UNITS LAB L501.7510 0.80-2.00 ng/mL Normal DIG 1.36 Performed By: #### L501.7510 #### [facility] [address] [place], [place], [address] TYPE AND SCREEN Collected: 11/19/2018 Status: F Source: [place] 8:14 PM [facility] REPOSITORY Order Comment: REDRAW. PREVIOUS SPECIMEN REJECTED DUE TO HEMOLYSIS. 11/19/181954 Ana Mohan. CMV NEG?* N Give When? When Ready Irradiated? N Leukodepleted? Y Reason for Type AND Screen/Red Cells: ANEMIA TYPE CODE TESTS RESULT OUT OF RANGE REFERENCE UNITS LAB B10.0800 O Normal BLOOD TYPE GEL POSITIVE LAB B100.4000 Normal Antibody NEGATIVE Screen Performed By: #### B101.7450 #### [facility] [address] [place], [address] RC Collected: 11/19/2018 Status: F Source: [place] 8:14 PM [facility] REPOSITORY TYPE CODE TESTS RESULT OUT OF REFERENCE UNITS RANGE LAB U100.0000 [id number] TRANSFUSED PRODUCT: T AND S with Crossmatch, Red Cells COUNT: 2 Performed By: #### U100.0000 #### [facility] - refer to report for specific site Observed: 11/19/2018 Status: F Source: [place] STOOL OCCULT BLOOD 7:55 PM [facility] IFOB REPOSITORY STOB iFOB Occult Blood Negative Performed By: #### M100.7900 #### [facility] [place], [place], [address] Observed: 11/19/2018 Status: F Source: [place] CULTURE, BLOOD (WB) 6:55 PM [facility] REPOSITORY BC No growth in 5 days. Performed By: #### M200.1000 #### [facility] [address] [place], [address] BLOOD GASES BY CPS Collected: 11/19/2018 Status: F Source: [place] 6:52 PM [facility] REPOSITORY TYPE CODE TESTS RESULT OUT OF RANGE REFERENCE UNITS LAB L9000.9990 Normal BLD GAS TYPE ART LAB L9001.1000 Normal SITE R Radial LAB L9001.1010 Normal ZACHARY TEST POS LAB L9001.1050 O2 Normal Delivery Dev Nasal Can LAB L9001.1055 /min Normal LPM 4.0 LAB L9001.1104 Normal Results To ED LAB L9001.1105 Normal Time Given 1847 LAB L9001.1110 7.35-7.45 Low pH - I-STAT 7.33 LAB L9001.1210 35-45 mmHg High alert pCO2 - ISTAT 89.1 LAB L9001.1310 75-100 mmHG High PO2 I-STAT 122 LAB L9001.2300 22-26 mmol/L High HCO3 ISTAT 46.8 LAB L9001.2400 -2 to +2 mmol/L High BE ISTAT 21 LAB L9001.2415 mmol/L Normal TOTAL CO2 50 ISTAT LAB L9001.2425 95-99 % Normal SO2 ISTAT 98 Performed By: #### L9000.0800 #### [facility] [place] [address] CBC W/DIFF, AUTOMATED Collected: 11/19/2018 Status: F Source: [place] 6:45 PM [facility] REPOSITORY TYPE CODE TESTS RESULT OUT OF RANGE REFERENCE UNITS LAB L100.1000 4.4-11.0 K/mm3 Normal WBC 5.3 LAB L100.1200 4.6-6.2 M/mm3 Low RBC 2.71 LAB L100.1300 13.0-16.5 g/dl Low HGB 7.0 LAB L100.1400 40-54 % Low HCT 25.1 LAB L100.1500 80-94 fL Normal MCV 92.6 LAB L100.1600 27.0-32.0 pg Low MCH 25.8 LAB L100.1700 32-36 g/gl Low MCHC 27.9 LAB L100.1810 11.6-14.6 % High RDW CV 16.3 LAB L100.1820 35.1-43.9 fl High RDW SD 53.5 LAB L100.1900 150-450 K/mm3 Normal PLT 219 LAB L100.2000 6.2-12.0 fl Normal MPV 10.5 LAB L100.2100 47-70 % High NEUT% 84.3 LAB L100.2200 19-41 % Low LY% 8.3 LAB L100.2300 0-10 % Normal MONO% 7.4 LAB L100.2400 0-5 % Normal EO% 0.0 LAB L100.2500 0-1 % Normal BASO% 0.0 LAB L100.2550 0.0-0.9 % Normal IM GRAN % 0.000 Result Comment: IG% - Immature Granulocytes (promyelocytes, myelocytes and metamyelocytes) > 1% indicates that a LEFT SHIFT is Present. LAB L100.2620 2.0-7.7 X10 3/uL Normal Absolute Neut 4.5 LAB L100.2720 0.83-4.51 X10 3/ul Low Absolute Lymph 0.44 LAB L100.4500 Normal SMEAR COMMENT SCANNED Result Comment: LYMPHOPENIA NOTED Performed By: #### L100.0100 #### [facility] [address] [place], [place], [address] PROTHROMBIN TIME W/INR Collected: 11/19/2018 Status: F Source: [place] 6:45 PM [facility] REPOSITORY TYPE CODE TESTS RESULT OUT OF RANGE REFERENCE UNITS LAB L300.4150 11.7-14.9 SECONDS High PROTIME 26.5 LAB L300.4200 Normal INR 2.4 Performed By: #### L300.3900, L300.4310 #### [facility] [address] [facility] [place], [address] PARTIAL THROMBOPLAST Collected: 11/19/2018 Status: F Source: [facility] 6:45 PM [facility] REPOSITORY TYPE CODE TESTS RESULT OUT OF RANGE REFERENCE UNITS LAB L300.4310 24.1-36.2 Seconds Normal PTT 29.5 Performed By: #### L300.3900, L300.4310 #### [facility] [address] [facility] [place], [place], [address] COMPREHENSIVE METABOLIC Collected: 11/19/2018 Status: F Source: [place] PROFIL 6:45 PM [facility] REPOSITORY TYPE CODE TESTS RESULT OUT OF RANGE REFERENCE UNITS LAB L501.0100 74-106 mg/dL High GLU 215 Result Comment: Glucose result greater than or equal to 200 mg/dL suggests DIABETES MELLITUS per A.D.A. criteria. Please note revised GLUCOSE reference range effective 2017. LAB L501.1000 7-18 mg/dL High BUN 97 LAB L501.1100 0.70-1.30 mg/dL High CREAT,SERUM 2.21 Result Comment: The validity of the calculated GFR AND GFRAA in patients over 70 years has not been determined. Clinical correlation is essential. LAB L501.1110 >60 mL/min Low EST GFR 31 Result Comment: Non- GFR Calc LAB L501.1115 >60 mL/min Low EST GFR - AA 38 Result Comment: GFR Calc LAB L501.1255 ml/min Normal Estimated CRCL 28.93 LAB L501.1300 10-20 RATIO High BUN/CRE 43.9 LAB L501.1500 6.4-8. g/dL Normal 2 T PROT 7.6 LAB L501.1800 3.2-5. g/dL Low 0 ALB 2.9 LAB L501.1950 2.2-4. g/dL High 2 GLOB 4.7 LAB L501.2000 0.9-2. RATIO Low 4 A/G 0.6 LAB L501.2200 8.5-10 mg/dL Normal .1 CA 8.9 LAB L501.4100 15-37 U/L High AST 43 Result Comment: Moderate Hemolysis, Result may be falsely increased. LAB L501.4305 45-117 U/L Normal ALK P 92 LAB L501.4405 16-61 U/L Normal ALT 18 LAB L501.4600 0.20-1.00 mg/dL Normal T BILI 0.40 LAB L501.5300 136-145 mmol/L High NA 149 LAB L501.5600 3.5-5.1 mmol/L Normal K 5.0 Result Comment: Moderate Hemolysis, Result may be falsely increased. LAB L501.5900 98-107 mmol/L Normal CL 99 LAB L501.6100 21.0-32.0 mmol/L High CO2 44.0 LAB L501.6200 5-15 Normal GAP 6 Performed By: #### L500.4050, L501.4010 #### [facility] [address] [facility] [place], [address] TROPONIN-I Collected: 11/19/2018 Status: F Source: [place] 6:45 PM [facility] REPOSITORY TYPE CODE TESTS RESULT OUT OF RANGE REFERENCE UNITS LAB L501.4010 <0.045 ng/mL High 0.408 TROPONIN-I Result Comment: TROPONIN-I EXPECTED VALUES <0.045 Negative 0.045 - 0.590 Consistent with Cardiac Damage > OR = 0.600 Critical Value Not every elevated troponin is indicative of [place]. These values should be used with clinical judgement in examining the patient's clinical picture for diagnosis. To establish a diagnosis of [place] versus myocardial injury, there must be a demonstrated rise and/or fall in the troponin values, in addition to ischemic symptoms, EKG changes, new regional wall motion abnormality, and/or angiographical evidence. PLEASE NOTE: REFERENCE RANGES EDITED 18 Performed By: #### L500.4050, L501.4010 #### [facility] [address] [place], [address] LACTIC ACID Collected: 11/19/2018 Status: F Source: [place] 6:45 PM [facility] REPOSITORY Order Comment: Yes/No query for Sepsis Lactate Rule Y TYPE CODE TESTS RESULT OUT OF RANGE REFERENCE UNITS LAB L503.6005 0.4-2.0 mmol/L Normal LACTIC ACID 1.2 Performed By: #### L503.6005 #### [facility] [address] [place], [address] BNP,B-TYPE NATRIURETIC Collected: 11/19/2018 Status: F Source: [place] PEPTIDE 6:45 PM [facility] REPOSITORY TYPE CODE TESTS RESULT OUT OF RANGE REFERENCE UNITS LAB L503.6620 0-100 pg/mL High B-TYPE 343.0 EJ PEP Performed By: #### L503.6620 #### [facility] [address] [place], [address] Observed: 11/19/2018 Status: F Source: [place] CULTURE, BLOOD (WB) 6:45 PM [facility] REPOSITORY BC No growth in 5 days. Performed By: #### M200.1000 #### [facility] [address] [facility] [place], [address] CHEST 1 VIEW Observed: 11/19/2018 Status: F Source: [place] (PORTABLE) 6:38 PM [facility] REPOSITORY [facility] Imaging Services [address] [place] [address] Chest 1 View (Portable) MR#: [id number] Acct: [id number] Name: JIMMY BUTLER Rep #: [id number] : 1950 M 68 From: Jaylon Abarca MD PCP: Sally Allison MD Status: REG ER Study: Chest 1 View (Portable) Date of Exam: 11/19/18 Exam# [id number] Ordering Dr: Joseph Davis MD STUDY: X-RAY CHEST REASON FOR EXAM: Male, 68 years old. Dyspnea. Cough. TECHNIQUE: Single frontal view of the chest. COMPARISON: July 01, 2018 FINDINGS: There is stable hyperexpansion. There are interstitial opacities in both apices unchanged. There is no demonstrated pleural abnormality. There is stable cardiomegaly with a dual lead cardiac pacer. Normal mediastinum and yee. Normal visualized pulmonary arteries. Normal visualized aortic arch and descending thoracic aorta. There is a new kyphoplasty of the upper lumbar spine. Normal visualized ribs, clavicles, and shoulders. There is no demonstrated abnormality of the visualized soft tissue structures of the upper abdomen. RAD/Chest 1 View (Portable) IMPRESSION: Stable hyperexpansion compatible with COPD. No new or acute pathology. Electronically Signed: Jaylon Abarca MD at 20:22 EST , Service support , CC: Joseph Davis MD; Sally Allison MD Multiple Launch Rocket System Crewmember: Signed SPINE 1 VIEW ANY Observed: 11/04/2018 Status: F Source: [place] LEVEL 3:34 AM [facility] REPOSITORY [facility] Imaging Services [address] [place] [address] Spine 1 View Any Level MR#: [id number] Acct: [id number] Name: JIMMY BUTLER Rep #: [id number] : 1950 M 68 From: Ritesh Bunch MD PCP: Sally Allison MD Status: [facility] Study: Spine 1 View Any Level Date of Exam: 11/04/18 Exam# [id number] Ordering Dr: Lamar Weiss MD PROCEDURE: Kyphoplasty of the L2 vertebrae. DATE OF EXAMINATION: November 04, 2018 INDICATION: Male, 68 years old. Back pain. FLUOROSCOPY TIME (if supplied): (1:20) minutes/seconds. 6 coned-down views were obtained. Intraoperative imaging provided for vertebroplasty of the L2 vertebrae. RAD/Spine 1 View Any Level IMPRESSION: Intraoperative imaging provided for vertebroplasty of the L2 vertebrae. Electronically Signed: Ritesh Bunch MD at 15:59 EST Tel [phone], Service support , CC: Lamar Weiss MD; Sally Allison MD Multiple Launch Rocket System Crewmember: Signed CT BRAIN WO IVCON Observed: 10/31/2018 Status: F Source: [place] 12:26 PM [facility] REPOSITORY * * *Final Report* * * DATE OF EXAM: Oct 31 2018 12:26PM [facility] 0504 - CT BRAIN WO IVCON / PROCEDURE REASON: multiple diagnoses * * * * Physician Interpretation * * * * EXAMINATION: CT BRAIN WO IVCON CLINICAL HISTORY: Dementia. TECHNIQUE: Serial axial images without IV contrast were obtained from the vertex to the foramen magnum. MQ: [id number] CT Dose-Length Product (DLP): 2040 mGy*cm CT Dose Reduction Employed: Automated exposure control(AEC) and iterative recon COMPARISON: 08/24/2017 RESULT: Post-operative change: Again noted are changes of occipital craniectomy with underlying encephalomalacia involving cerebellum dorsally, similar in appearance to prior examination. Acute change: No CT evidence of an acute infarct or other acute parenchymal process. Hemorrhage: No evidence of acute intracranial hemorrhage. Mass Lesion / Mass Effect: There is no evidence of an intracranial mass or extraaxial fluid collection. No significant mass effect. Chronic change: Scattered patchy foci of low attenuation are present within supratentorial white matter which is a nonspecific finding but likely represents mild microvascular ischemia. Parenchyma: There is mild generalized volume loss. The brain parenchyma is otherwise within normal limits for age. Ventricles: Ventricular enlargement concordant with the degree of parenchymal volume loss. Paranasal sinuses and skull base: The visualized paranasal sinuses are grossly clear except for mucosal thickening within the partially visualized right maxillary sinus. The skull base and imaged soft tissues are unremarkable. IMPRESSION: No CT evidence of an acute intracranial process. Mild chronic changes as discussed. Postsurgical changes posterior fossa as discussed. [employer] Crewmember: PSCGiselle Transcribe Date/Time: Oct 31 2018 12:43P Dictated by : GONZALO GUZMAN MD This examination was interpreted and the report reviewed and electronically signed by: GONZALO GUZMAN MD on Oct 31 2018 12:46PM EST [id number] CT CERVICAL SPINE WO Observed: 10/31/2018 Status: F Source: [place] IVCON 12:26 PM [facility] REPOSITORY * * *Final Report* * * DATE OF EXAM: Oct 31 2018 12:26PM [facility] 0505 - CT CERVICAL SPINE WO IVCON / PROCEDURE REASON: Disease of spinal cord (HCC) * * * * Physician Interpretation * * * * EXAMINATION: CT CERVICAL SPINE WO IVCON CLINICAL HISTORY: Back pain. Multiple falls. TECHNIQUE: CT of the cervical spine without IV contrast. Spiral, high resolution axial images were obtained from the skull base to the cervicothoracic junction with sagittal and coronal planar reconstructions. MQ: CTCSPWO_5 CT Dose-Length Product (DLP): 2040 mGy*cm CT Dose Reduction Employed: Automated exposure control(AEC) and iterative recon COMPARISON: None. RESULT: Counting reference: Craniocervical junction. Anatomic Variants: None. Alignment: Grade 1 degenerative anterolisthesis of C2 on C3 with fusion of the posterior elements. Straightening of the cervical lordosis. Alignment is otherwise preserved. Craniocervical junction: Craniocervical junction is normal. Atlantoaxial interval is preserved. Osseous structures/fracture: Patient is status post C3- 6 posterior decompression with anterior instrumented fusion at C5-6-7. Hardware appears intact without CT evidence of loosening. There is osseous fusion between the vertebral bodies at C3-7 as well as posterior elements at C2-6 bilaterally. There is no fracture. No destructive osseous lesion. Cervical soft tissues: The paraspinal soft tissues are within normal limits. Degenerative changes: C2-3: Facet and uncinate joint hypertrophy at C2-3 with severe right and moderate left bony neural foraminal narrowing. Grade 1 degenerative anterolisthesis at C2-3 with disc/osteophyte bulge/uncovering resulting in moderate to severe bony spinal canal stenosis. C3-4: Canal is decompressed posteriorly. No significant bony neural foraminal stenosis. C4-5: Canal is decompressed posteriorly. Mild left bony neural foraminal stenosis. Right bony neural foramen is patent. C5-6: Canal is decompressed posteriorly. Facet and uncinate hypertrophy with moderate bilateral bony neural foraminal stenosis: C6-7: Disc/osteophyte complex bulge with mild bony spinal canal narrowing as well as moderate bilateral bony neural foraminal stenosis. C7-T1. Facet hypertrophy with mild bilateral bony neural foraminal stenosis. Spinal canal is patent. Noncalcified bilateral upper lobe nodules are partially visualized and can be further evaluated with CT chest. IMPRESSION: Degenerative and postsurgical changes of the cervical spine as discussed. No fracture or traumatic malalignment. Hardware appears intact and without CT evidence of loosening. Degenerative changes are most pronounced at C2-3 with moderate to severe bony spinal canal narrowing, severe right and moderate left bony neural foraminal stenosis. Additional multilevel mild to moderate bony neural foraminal stenosis identified. Noncalcified bilateral upper lobe nodules are partially visualized and can be further evaluated with CT chest. Anatomic Variant: None. Assume 7 cervical vertebrae with counting from the craniocervical junction. [employer] Crewmember: KIM Transcribe Date/Time: Oct 31 2018 12:46P Dictated by : GONZALO GUZMAN MD This examination was interpreted and the report reviewed and electronically signed by: GONZALO GUZMAN MD on Oct 31 2018 12:58PM EST [id number] CT LUMBAR SPINE WO Observed: 10/31/2018 Status: F [facility] REPOSITORY * * *Final Report* * * DATE OF EXAM: Oct 31 2018 12:26PM [facility] 0508 - CT LUMBAR SPINE WO IVCON / PROCEDURE REASON: Other fracture of unspecified lumbar vertebra, initial encounter for closed frac * * * * Physician Interpretation * * * * EXAMINATION: CT LUMBAR SPINE WO IVCON CLINICAL HISTORY: Recurrent falls. Low back pain. TECHNIQUE: Spiral, high resolution axial images were obtained from the thoracolumbar junction to the sacrum with sagittal and coronal planar reconstructions. MQ: CTLSPWO_3 Dose-Length Product (DLP): 2040 mGy*cm. CT Dose Reduction Employed: Automated exposure control(AEC) and iterative recon COMPARISON: None. RESULT: Counting reference: Lumbosacral junction. For the purposes of this report, L4-5 is considered the level of the iliac crest and there are 5 lumbar-type vertebrae. Anatomic Variants: None. Alignment: Alignment is anatomic. There is diffuse osteopenia. Mild age indeterminant compression deformities of L2 and L4 vertebral bodies with-type 15% height loss, no retropulsion. Additional, age indeterminant compression deformity of T11 with approximately 30% height loss centrally, no retropulsion. Mild sclerosis of the superior endplate of T11 suggesting acute to subacute etiology. Patient is status post L4-5 posterior decompression. No other fracture. No focal destructive osseous process identified. Paraspinal soft tissues: The paraspinal soft tissues planes are maintained. Lower thoracic spine: The visualized lower thoracic bony canal and foramina are patent. T12-L1: Canal and foramina are patent. L1-L2: Canal and foramina are patent. L2-L3: Disc bulge combined with facet ligamentous atrophy resulting in mild bony spinal canal narrowing and mild to moderate bilateral bony neural foraminal stenosis. L3-L4: Disc bulge combined with facet ligamentous hypertrophy resulting in mild to moderate bony spinal canal narrowing and moderate bilateral bony neural foraminal stenosis. L4-L5: Canal is decompressed posteriorly. Disc bulge and facet hypertrophy with mild to moderate bilateral bony neural foraminal stenosis. L5-S1: Canal is decompressed posteriorly. Mild bilateral bony neural foraminal stenosis. Sacrum and iliac wings: The visualized sacrum and iliac wings are within normal limits. IMPRESSION: Degenerative and postsurgical changes of the lumbar spine as discussed. Age indeterminant but likely acute to subacute compression deformity of T11 with approximately 30% height loss, no retropulsion. Age indeterminate but likely chronic mild compression deformities of L2 and L4 with 15% height loss, no retropulsion. No other compression deformity identified. Diffuse osteopenia. Degenerative changes of the lumbar spine are most pronounced at L3-4 with mild to moderate bony spinal canal stenosis as well as moderate bilateral bony neural foraminal narrowing. Anatomic Thoracic/Lumbar Variant: None. L4-5 is considered the level of the iliac crest and assume there are 5 lumbar-type vertebrae. [employer] Crewmember: KIM Transcribe Date/Time: Oct 31 2018 12:59P Dictated by : GONZALO GUZMAN MD This examination was interpreted and the report reviewed and electronically signed by: GONZALO GUZMAN MD on Oct 31 2018 1:04PM EST [id number] PROGRESS Observed: 10/31/2018 Status: COMPLETED Source: [place] 12:09 PM [facility] REPOSITORY HNO ID: [id number] Author: Pema Rucker Ct Service: (none) Author Type: (none) Type: Progress Notes Filed: 10/31/2018 12:09 PM Note Text: Radiology Service Progress Note PATIENT NAME: Jimmy Butler DATE OF SERVICE: October 31, 2018 TIME: 12:09 PM PATIENT IDENTITY VERIFICATION COMPLETED USING TWO (2) METHODS: Patient confirmed name verbally and Date of . PATIENT GENDER DATA: Male PATIENT RELEVANT IMPLANT DATA REVIEWED: Not Applicable RADIOLOGY DEPARTMENT: CT; Exam(s) Completed: Brain and Spine PERIPHERAL IV DATA: Not applicable SIGNED BY: Pema Rucker Ct October 31, 2018 12:09 PM Observed: 10/25/2018 Status: F Source: [place] URINE CULTURE 10:55 AM [facility] REPOSITORY Sp. Request/Comment: - FOR PRE OPERATIVE STERILIZATIONPLEASE ADD FOSFOMYCIN TO SENSITIVITY Culture Result - <10,000 CFU/ml Lactose negative gram negative bacilli --> ABNORMAL ALERT Insignificant colony count. No further workup. --> ABNORMAL ALERT 1,000 - <5,000 CFU/ml --> ABNOR MAL ALERT Lactose positive gram negative bacilli --> ABNORMAL ALERT Morphology 1 --> ABNORMAL ALERT Insignificant colony count. No further workup. --> ABNORMAL ALERT <1,000 CFU/ml --> ABN ORMAL ALERT Lactose positive gram negative bacilli --> ABNORMAL ALERT Morphology 2 --> ABNORMAL ALERT Insignificant colony count. No further workup. --> ABNORMAL ALERT Performed By: #### URCUL #### [facility] [address] [place] [address] CNOV Observed: 10/21/2018 Status: COMPLETED Source: [place] 9:[address] [facility] REPOSITORY Office Visit (NEURBA) JIMMY BUTLER ([id number]) 1950 M Date Time Provider Department 10/21/18 9:40 AM DESMOND ROMERO JR During your visit today, we recorded the following information about you: Pulse Respiration Blood pressure Weight 120/minute 20/minute 111/70 68.9 kg Height 1.803 m Desmond Romero MD 10/21/2018 10:39 AM Signed ESTABLISHED PATIENT VISIT HISTORY OF PRESENT ILLNESS: Jimmy Butler is a 68 year old male, with a PMH significant for: 1. Dementia without behavioral disturbance, unspecified dementia type - ICD9: 294.20, ICD10: F03.90 (primary diagnosis) Overall MOCA stable last visit, although subjectively, patient may have had more cognitive impairments at home then MOCA would predict. No changes made to meds last visit. 2. PETE treated with BiPAP - ICD9: 327.23, ICD10: G47.33 Overall doing well by download last visit. Family and patient still planning on moving to [place]. Patient reportedly now having a lot of falls with a reported fracture in his back. Patient is having increasing falls since February of this year. Reportedly no workup per family. Does have chronic history of back injury with drop foot. Just yesterday fell off the bed. At this time having about 1 fall per week. Denies vertigo or lightheadedness. Denies sensation that legs are giving out on him. Not tripping over oxygen. Can be standing and suddenly collapses. There is no loss of consciousness. Note he is on anticoagulation. At least one fall associated with head trauma. Denies headaches. Last CT I have record of was in 08/2017. Does have numbness in the feet, but non-specific description. In addition to falls, decline in memory. Increased forgetfulness. MOCA completed but did not save for unknown reasons. MOCA score today is 12. He could not tell me date, year, day of week correctly. He could not correctly perform serial 7s. Able to repeat numbers correctly as well as sentences. Unable to correctly answer tasks of abstract thought. Numbers inappropriately placed on clock as well as hands. Delayed recall 0/5. Overall more sleepy, despite compliance with Bilevel - using >4 hours per night. REVIEW OF SYSTEMS GENERAL:No weight loss, malaise or fevers. HEENT:Negative for frequent or significant headaches, No changes in hearing or vision, no nose bleeds or other nasal problems NECK:Negative for lumps, goiter, pain and significant neck swelling RESPIRATORY: CABRALES and SOB at rest as well. Followed by Dr. Jet Arnett in [place]. CARDIOVASCULAR: Negative for chest pain or palpitations. + Leg swelling. GASTROINTESTINAL: Negative for abdominal discomfort, blood in stools or black stools or change in bowel habits GENITOURINARY: No history of dysuria, frequency or incontinence MUSCULOSKELETAL: Negative for joint pain or swelling, back pain or muscle pain. NEUROLOGIC:Negative for focal numbness or weakness, headaches and dizziness or syncope, vision changes, speech/languag changes - EXCEPT that as per HPI above. SKIN:Negative for lesions, rash, and itching. HEMATOLOGIC/LYMPHATIC/IMMUNOLOGIC:Negative for prolonged bleeding, bruising easily or swollen nodes. ENDOCRINE: Negative for cold or heat intolerance, polyuria, polydipsia and goiter. The remainder of the ROS was reviewed and is negative. LAB/IMAGING: Those performed since patient's last visit have been reviewed. WBC (k/uL) Date Value 06/16/2018 4.80 RBC (m/uL) Date Value 06/16/2018 3.36 (L) Hemoglobin (g/dL) Date Value 06/16/2018 9.2 (L) Hematocrit (%) Date Value 06/16/2018 33.2 (L) MCV (fL) Date Value 06/16/2018 98.8 MCH (pG) Date Value 06/16/2018 27.4 MCHC (g/dL) Date Value 06/16/2018 27.7 (L) RDW-CV (%) Date Value 06/16/2018 15.4 (H) Platelet Count (k/uL) Date Value 06/16/2018 145 (L) MPV (fL) Date Value 06/16/2018 9.7 Glucose (mg/dL) Date Value 10/05/2018 125 (H) BUN (mg/dL) Date Value 10/05/2018 39 (H) Creatinine (mg/dL) Date Value 10/05/2018 1.30 (H) Sodium (mmol/L) Date Value 10/05/2018 142 Potassium (mmol/L) Date Value 10/05/2018 4.2 Chloride (mmol/L) Date Value 10/05/2018 91 (L) CO2 (mmol/L) Date Value 10/05/2018 45 (H) Protein, Total (g/dL) Date Value 05/19/2018 6.1 (L) Albumin (g/dL) Date Value 05/19/2018 3.6 (L) Calcium (mg/dL) Date Value 10/05/2018 10.0 Alkaline Phosphatase (U/L) Date Value 05/19/2018 52 Bilirubin, Total (mg/dL) Date Value 05/19/2018 0.2 AST (U/L) Date Value 05/19/2018 21 ALT (U/L) Date Value 05/19/2018 12 BELKIS (no units) Date Value 09/13/2015 Negative <1:40 MEDICATIONS: isosorbide mononitrate ER (IMDUR) 30 mg 24 hr tablet TAKE 1 TABLET EVERY DAY hydrALAZINE (APRESOLINE) 50 mg tablet TAKE 1 TABLET THREE TIMES DAILY lisinopril (ZESTRIL, PRINIVIL) 20 mg tablet Take 1 tablet by mouth once daily. metOLAzone (ZAROXOLYN) 2.5 mg tablet Take 2.5 mg by mouth every 48 hours. predniSONE (DELTASONE) 10 mg tablet Take 1 tablet by mouth once daily. spironolactone (ALDACTONE) 25 mg tablet Take 0.5 tablets by mouth once daily. furosemide (LASIX) 40 mg tablet Take 1 1/2 tablets (60mg) twice daily memantine XR (NAMENDA XR) 28 mg CSpX TAKE 1 CAPSULE EVERY DAY digoxin 62.5 mcg tab Take 1 tablet by mouth once daily. hydrALAZINE (APRESOLINE) 50 mg tablet Take 0.5 tablets by mouth three times daily. nystatin (MYCOSTATIN) 100,000 unit/mL susp Take 5 mL by mouth three times daily. carvedilol (COREG) 25 mg tablet TAKE 1 TABLET BY MOUTH TWICE DAILY WITH MEALS ELIQUIS 5 mg tab(s) TAKE 1 TABLET BY MOUTH TWICE DAILY nitrofurantoin monohydrate and macrocrystal (MACROBID) 100 mg capsule Take 1 capsule by mouth once daily. finasteride (PROSCAR) 5 mg tablet Take 1 tablet by mouth once daily. BIPAP levalbuterol (XOPENEX) 0.63 mg/3 mL nebulizer solution Use 3 mL via nebulizer every 6 hours as needed for Wheezing/Shortness of Breath (for wheezing). Dx: J44.9 nitroglycerin sublingual (NITROQUICK) 0.4 mg SL tablet Dissolve 1 tablet under the tongue as needed. FOR CHEST PAIN. IF NO RELIEF CALL 911 COMPOUNDED PRESCRIPTION [facility] for home BP monitoring COMPOUNDED PRESCRIPTION Oxygen 3 liters Cyanocobalamin (VITAMIN B-12) 1,000 mcg subl Dissolve 1 tablet under the tongue once daily. 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 Upper lobe nodular infiltrates. - Unspecified essential hypertension FAMILY HISTORY Problem Relation Age of Onset - Hypertension Mother - Emphysema Father - Cancer Brother Lung SOCIAL HISTORY Social History Substance Use Topics - Smoking status: Current Every Day Smoker Packs/day: 1.00 Years: 50.00 Types: Cigarettes Start date: 1964 Last attempt to quit: 12/23/2014 - Smokeless tobacco: Never Used Comment: 1-2 per dy - Alcohol use Yes Comment: Infrequent beer. PHYSICAL EXAMINATION Blood pressure 111/70, pulse 120, resp. rate 20, height 5' 11 (1.803 m), weight 152 lb (68.9 kg). GENERAL EXAM: General appearance: NAD, pleasant. HEENT: NC/AT, nasal congestion absent, no oral lesions, membranes moist. NECK: No masses, supple. Lungs: Mild scattered wheezes. Inspiration > Expiration. On O2 via NC. CV: Tachy. No carotid bruits. Abd: Soft, nontender. Bowel sounds present. Extr: Trace pedal edema. No evidence of fasciculations. Extremity pulses 1+ in DPPs. Skin: Cool to touch. NEUROLOGICAL EXAM: General: Awake, alert, oriented x2 (person,place), speech fluent, no dysarthria; See MOCA above CN: PERRL, fundi appear normal including no evidence of papilledema, EOMI and without nystagmus, VFF to confrontation, facial sensation and strength are normal and symmetric, hearing is intact, palate and tongue movements are intact and symmetric. SCM and trapezius strength normal. Motor: Normal tone, bulk and strength (5/5) bilaterally (throughout extremities x4). Reflexes: 1/4 and symmetric although cannot elicit at ankles, plantar stimulation is mute. Coordination: FNF, SOFIA, HTS intact. No tremors. Sensation: Light touch and pin diminished in distal lower exts but not absent. No evidence of neglect. Gait: Very unsteady gait, with legs essentially wobbly, somewhat decreased stride (not shuffling), and need for assist. Assessment and Plan: ASSESSMENT/PLAN: 1. Dementia without behavioral disturbance, unspecified dementia type - ICD9: 294.20, ICD10: F03.90 (primary diagnosis) Cognition has worsened since last visit with decrease in MOCA. As in past, encouraged brain exercises. Will continue Namenda XR 28mg daily. However, will now also initiate Aricept 5mg daily. SE and ADRs reviewed with pt. Uncertain if it will have any significant benefit at this time. Note they are still planning to move to [facility] next spring (2018). 2. Recurrent falls - ICD9: V15.88, ICD10: R29.6 Etiology unclear but concerning in that he has hit his head and is on Eliquis. Non-focal exam except abnormal gait and sensory deficits in lower exts as above. Will further evaluate with CT brain for intracranial etiology including SDH. Also will get CT C spine and L spine to evaluate for stenosis or further injuries secondary to traumas that could in fact result in recurrent falls. Note that it is reported he has a recent L spine fx and is seeing Dr. Weiss. 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 3. PETE treated with BiPAP - ICD9: 327.23, ICD10: G47.33 Encouraged PAP compliance. Download requested and awaiting data for review. Reminded to clean equipment regularly. Desmond Romero MD I spent 40 minutes in the visit, with more than 50% of the total [id number] time of the visit in counseling / coordination of care. Referring Provider: SELF [[id number]] Allergies As of Date: 10/21/2018 Noted Allergy Reaction ASA (ASPIRIN) 07/19/2017 8 - GI Upset ASA (SALICYLATES) 01/29/2006 8 - GI Upset Date Reviewed: 10/21/2018 Reviewed by: Desmond Romero Jr. - Fully Assessed Reason for Visit: Follow Up [171] Primary Visit Diagnosis:Dementia without behavioral disturbance, unspecified dementia type [F03.90] Other Visit Diagnoses:Recurrent falls [R29.6] Disease of spinal cord (HCC) [G95.9] Other fracture of unspecified lumbar vertebra, initial encounter for closed fracture (HCC) [S32.008A] PETE treated with BiPAP [G47.33] Order(s):memantine XR (NAMENDA XR) 28 mg CSpXTake 1 capsule by mouth once daily.Disp: 90 capsuleRfl: 3 donepezil (ARICEPT) 5 mg tabletTake 1 tablet by mouth daily at bedtime.Disp: 90 tabletRfl: 1 CT BRAIN WO IVCON [[id number]] Order #: [id number] FUTURE CT CERVICAL SPINE WO IVCON [[id number]] Order #: [id number] FUTURE CT LUMBAR SPINE WO IVCON [[id number]] Order #: [id number] FUTURE Prescriptions as of 10/21/2018 Sig: MEMANTINE 28 MG CAPSULE SPRIN* Take 1 capsule by mouth once * ISOSORBIDE MONONITRATE ER 30 * TAKE 1 TABLET EVERY DAY HYDRALAZINE 50 MG TABLET TAKE 1 TABLET THREE TIMES JOSH* LISINOPRIL 20 MG TABLET Take 1 tablet by mouth once d* PREDNISONE 10 MG TABLET Take 1 tablet by mouth once d* SPIRONOLACTONE 25 MG TABLET Take 0.5 tablets by mouth onc* FUROSEMIDE 40 MG TABLET Take 1 1/2 tablets (60mg) twi* DIGOXIN 62.5 MCG TABLET Take 1 tablet by mouth once d* HYDRALAZINE 50 MG TABLET Take 0.5 tablets by mouth thr* NYSTATIN 100,000 UNIT/ML ORAL* Take 5 mL by mouth three time* CARVEDILOL 25 MG TABLET TAKE 1 TABLET BY MOUTH TWICE * ELIQUIS 5 MG TABLET TAKE 1 TABLET BY MOUTH TWICE * NITROFURANTOIN MONOHYDRATE AND * Take 1 capsule by mouth once * FINASTERIDE 5 MG TABLET Take 1 tablet by mouth once d* BIPAP LEVALBUTEROL 0.63 MG/3 ML BIBIANA* Use 3 mL via nebulizer every * NITROGLYCERIN 0.4 MG SUBLINGU* Dissolve 1 tablet under the t* COMPOUNDED PRESCRIPTION [facility] for ho* COMPOUNDED PRESCRIPTION Oxygen 3 liters CYANOCOBALAMIN (VIT B-12) 1,0* Dissolve 1 tablet under the t* DONEPEZIL 5 MG TABLET Take 1 tablet by mouth daily * METOLAZONE 2.5 MG TABLET Take 2.5 mg by mouth every 48* Medication notes this encounter NITROFURANTOIN MONOHYDRATE AND MACROCRYSTAL 100 MG ORAL CAP >> Dale Franco MA 10/21/2018 10:05 AM >> FLACO FRANCO MASE WedOct 21, 2018 10:05 AM Refill needed Problem List As Of Date 10/21/2018 Noted Resolved Hypertension [I10] INVALID FOR* Lumbar disc disease [M51.9] INVALID FOR* Cervical disc disease [M50.90] INVALID FOR* COPD (chronic obstructive pulmonary disease) [J*INVALID FOR* BPH (benign prostatic hyperplasia) [N40.0] INVALID FOR* Urethral stricture [KZX6253] INVALID FOR* Difficulty voiding [R39.198] INVALID FOR* Frequency of urination [R35.0] INVALID FOR* Urinary retention [R33.9] INVALID FOR* Anemia [D64.9] INVALID FOR* Tobacco abuse [Z72.0] INVALID FOR* Nonischemic cardiomyopathy (HCC) [I42.8] INVALID FOR* Atrial fibrillation with rapid ventricular resp*INVALID FOR* AICD (automatic cardioverter/defibrillator) pre*INVALID FOR* Spontaneous pneumothorax [J93.83] INVALID FOR* Swallowing difficulty [R13.10] INVALID FOR* More... PETE treated with BiPAP [G47.33] INVALID FOR* More... Prescriptions ordered this encounter Disp Refills Start End MEMANTINE 28 MG CAPSULE TRUDY,EXT* 90 c* 3 10/21/2018 01/19/2019 Route: ORAL Sig: Take 1 capsule by mouth once daily. DONEPEZIL 5 MG TABLET 90 t* 1 10/21/2018 Route: ORAL Sig: Take 1 tablet by mouth daily at bedtime. Medications Discontinued During This Encounter memantine XR (NAMENDA XR) 28 mg CSpX 90 c* 0 09/20/2018 10/21/2018 Cmt: Med-sync patient. If too soon, we will put new RX on hold for next cycle. Sig: TAKE 1 CAPSULE EVERY DAY Disc: Reason for discontinue is not on file. Disposition: Return in about 9 weeks (around 12/23/2018). Follow-up and Disposition History Recorded Encounter Status:Closed by DESMOND ROMERO on 10/21/18 PROGRESS Observed: 10/21/2018 Status: COMPLETED Source: [place] 8:24 AM [facility] OTHER [facility]AMPUS REPOSITORY O ID: [id number] Author: Desmond Romero Jr. Service: (none) Author Type: Physician Type: Progress Notes Filed: 10/21/2018 10:39 AM Note Text: ESTABLISHED PATIENT VISIT HISTORY OF PRESENT ILLNESS: Jimmy Butler is a 68 year old male, with a PMH significant for: 1. Dementia without behavioral disturbance, unspecified dementia type - ICD9: 294.20, ICD10: F03.90 (primary diagnosis) Overall MOCA stable last visit, although subjectively, patient may have had more cognitive impairments at home then MOCA would predict. No changes made to meds last visit. 2. PETE treated with BiPAP - ICD9: 327.23, ICD10: G47.33 Overall doing well by download last visit. Family and patient still planning on moving to [place]. Patient reportedly now having a lot of falls with a reported fracture in his back. Patient is having increasing falls since February of this year. Reportedly no workup per family. Does have chronic history of back injury with drop foot. Just yesterday fell off the bed. At this time having about 1 fall per week. Denies vertigo or lightheadedness. Denies sensation that legs are giving out on him. Not tripping over oxygen. Can be standing and suddenly collapses. There is no loss of consciousness. Note he is on anticoagulation. At least one fall associated with head trauma. Denies headaches. Last CT I have record of was in 08/2017. Does have numbness in the feet, but non-specific description. In addition to falls, decline in memory. Increased forgetfulness. MOCA completed but did not save for unknown reasons. MOCA score today is 12. He could not tell me date, year, day of week correctly. He could not correctly perform serial 7s. Able to repeat numbers correctly as well as sentences. Unable to correctly answer tasks of abstract thought. Numbers inappropriately placed on clock as well as hands. Delayed recall 0/5. Overall more sleepy, despite compliance with Bilevel - using >4 hours per night. REVIEW OF SYSTEMS GENERAL:No weight loss, malaise or fevers. HEENT:Negative for frequent or significant headaches, No changes in hearing or vision, no nose bleeds or other nasal problems NECK:Negative for lumps, goiter, pain and significant neck swelling RESPIRATORY: CABRALES and SOB at rest as well. Followed by Dr. eJt Arnett in [place]. CARDIOVASCULAR: Negative for chest pain or palpitations. + Leg swelling. GASTROINTESTINAL: Negative for abdominal discomfort, blood in stools or black stools or change in bowel habits GENITOURINARY: No history of dysuria, frequency or incontinence MUSCULOSKELETAL: Negative for joint pain or swelling, back pain or muscle pain. NEUROLOGIC:Negative for focal numbness or weakness, headaches and dizziness or syncope, vision changes, speech/languag changes - EXCEPT that as per HPI above. SKIN:Negative for lesions, rash, and itching. HEMATOLOGIC/LYMPHATIC/IMMUNOLOGIC:Negative for prolonged bleeding, bruising easily or swollen nodes. ENDOCRINE: Negative for cold or heat intolerance, polyuria, polydipsia and goiter. The remainder of the ROS was reviewed and is negative. LAB/IMAGING: Those performed since patient's last visit have been reviewed. WBC (k/uL) Date Value 06/16/2018 4.80 RBC (m/uL) Date Value 06/16/2018 3.36 (L) Hemoglobin (g/dL) Date Value 06/16/2018 9.2 (L) Hematocrit (%) Date Value 06/16/2018 33.2 (L) MCV (fL) Date Value 06/16/2018 98.8 MCH (pG) Date Value 06/16/2018 27.4 MCHC (g/dL) Date Value 06/16/2018 27.7 (L) RDW-CV (%) Date Value 06/16/2018 15.4 (H) Platelet Count (k/uL) Date Value 06/16/2018 145 (L) MPV (fL) Date Value 06/16/2018 9.7 Glucose (mg/dL) Date Value 10/05/2018 125 (H) BUN (mg/dL) Date Value 10/05/2018 39 (H) Creatinine (mg/dL) Date Value 10/05/2018 1.30 (H) Sodium (mmol/L) Date Value 10/05/2018 142 Potassium (mmol/L) Date Value 10/05/2018 4.2 Chloride (mmol/L) Date Value 10/05/2018 91 (L) CO2 (mmol/L) Date Value 10/05/2018 45 (H) Protein, Total (g/dL) Date Value 05/19/2018 6.1 (L) Albumin (g/dL) Date Value 05/19/2018 3.6 (L) Calcium (mg/dL) Date Value 10/05/2018 10.0 Alkaline Phosphatase (U/L) Date Value 05/19/2018 52 Bilirubin, Total (mg/dL) Date Value 05/19/2018 0.2 AST (U/L) Date Value 05/19/2018 21 ALT (U/L) Date Value 05/19/2018 12 BELKIS (no units) Date Value 09/13/2015 Negative <1:40 MEDICATIONS: isosorbide mononitrate ER (IMDUR) 30 mg 24 hr tablet TAKE 1 TABLET EVERY DAY hydrALAZINE (APRESOLINE) 50 mg tablet TAKE 1 TABLET THREE TIMES DAILY lisinopril (ZESTRIL, PRINIVIL) 20 mg tablet Take 1 tablet by mouth once daily. metOLAzone (ZAROXOLYN) 2.5 mg tablet Take 2.5 mg by mouth every 48 hours. predniSONE (DELTASONE) 10 mg tablet Take 1 tablet by mouth once daily. spironolactone (ALDACTONE) 25 mg tablet Take 0.5 tablets by mouth once daily. furosemide (LASIX) 40 mg tablet Take 1 1/2 tablets (60mg) twice daily memantine XR (NAMENDA XR) 28 mg CSpX TAKE 1 CAPSULE EVERY DAY digoxin 62.5 mcg tab Take 1 tablet by mouth once daily. hydrALAZINE (APRESOLINE) 50 mg tablet Take 0.5 tablets by mouth three times daily. nystatin (MYCOSTATIN) 100,000 unit/mL susp Take 5 mL by mouth three times daily. carvedilol (COREG) 25 mg tablet TAKE 1 TABLET BY MOUTH TWICE DAILY WITH MEALS ELIQUIS 5 mg tab(s) TAKE 1 TABLET BY MOUTH TWICE DAILY nitrofurantoin monohydrate and macrocrystal (MACROBID) 100 mg capsule Take 1 capsule by mouth once daily. finasteride (PROSCAR) 5 mg tablet Take 1 tablet by mouth once daily. BIPAP levalbuterol (XOPENEX) 0.63 mg/3 mL nebulizer solution Use 3 mL via nebulizer every 6 hours as needed for Wheezing/Shortness of Breath (for wheezing). Dx: J44.9 nitroglycerin sublingual (NITROQUICK) 0.4 mg SL tablet Dissolve 1 tablet under the tongue as needed. FOR CHEST PAIN. IF NO RELIEF CALL 911 COMPOUNDED PRESCRIPTION [facility] for home BP monitoring COMPOUNDED PRESCRIPTION Oxygen 3 liters Cyanocobalamin (VITAMIN B-12) 1,000 mcg subl Dissolve 1 tablet under the tongue once daily. 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 Upper lobe nodular infiltrates. - Unspecified essential hypertension FAMILY HISTORY Problem Relation Age of Onset - Hypertension Mother - Emphysema Father - Cancer Brother Lung SOCIAL HISTORY Social History Substance Use Topics - Smoking status: Current Every Day Smoker Packs/day: 1.00 Years: 50.00 Types: Cigarettes Start date: 1964 Last attempt to quit: 12/23/2014 - Smokeless tobacco: Never Used Comment: 1-2 per dy - Alcohol use Yes Comment: Infrequent beer. PHYSICAL EXAMINATION Blood pressure 111/70, pulse 120, resp. rate 20, height 5' 11 (1.803 m), weight 152 lb (68.9 kg). GENERAL EXAM: General appearance: NAD, pleasant. HEENT: NC/AT, nasal congestion absent, no oral lesions, membranes moist. NECK: No masses, supple. Lungs: Mild scattered wheezes. Inspiration > Expiration. On O2 via NC. CV: Tachy. No carotid bruits. Abd: Soft, nontender. Bowel sounds present. Extr: Trace pedal edema. No evidence of fasciculations. Extremity pulses 1+ in DPPs. Skin: Cool to touch. NEUROLOGICAL EXAM: General: Awake, alert, oriented x2 (person,place), speech fluent, no dysarthria; See MOCA above CN: PERRL, fundi appear normal including no evidence of papilledema, EOMI and without nystagmus, VFF to confrontation, facial sensation and strength are normal and symmetric, hearing is intact, palate and tongue movements are intact and symmetric. SCM and trapezius strength normal. Motor: Normal tone, bulk and strength (5/5) bilaterally (throughout extremities x4). Reflexes: 1/4 and symmetric although cannot elicit at ankles, plantar stimulation is mute. Coordination: FNF, SOFIA, HTS intact. No tremors. Sensation: Light touch and pin diminished in distal lower exts but not absent. No evidence of neglect. Gait: Very unsteady gait, with legs essentially wobbly, somewhat decreased stride (not shuffling), and need for assist. Assessment and Plan: ASSESSMENT/PLAN: 1. Dementia without behavioral disturbance, unspecified dementia type - ICD9: 294.20, ICD10: F03.90 (primary diagnosis) Cognition has worsened since last visit with decrease in MOCA. As in past, encouraged brain exercises. Will continue Namenda XR 28mg daily. However, will now also initiate Aricept 5mg daily. SE and ADRs reviewed with pt. Uncertain if it will have any significant benefit at this time. Note they are still planning to move to [facility] next spring (2018). 2. Recurrent falls - ICD9: V15.88, ICD10: R29.6 Etiology unclear but concerning in that he has hit his head and is on Eliquis. Non-focal exam except abnormal gait and sensory deficits in lower exts as above. Will further evaluate with CT brain for intracranial etiology including SDH. Also will get CT C spine and L spine to evaluate for stenosis or further injuries secondary to traumas that could in fact result in recurrent falls. Note that it is reported he has a recent L spine fx and is seeing Dr. Weiss. 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 3. PETE treated with BiPAP - ICD9: 327.23, ICD10: G47.33 Encouraged PAP compliance. Download requested and awaiting data for review. Reminded to clean equipment regularly. Desmond Romero MD I spent 40 minutes in the visit, with more than 50% of the total [id number] time of the visit in counseling / coordination of care. PROGRESS Observed: 10/10/2018 Status: COMPLETED Source: [place] 3:38 PM [facility] REPOSITORY HNO ID: [id number] Author: Robbin Clarke (Rn) Service: (none) Author Type: Registered Nurse Type: Progress Notes Filed: 10/10/2018 5:03 PM Note Text: PRIMARY CARE COORDINATION FOLLOW-UP NOTE Provider Action/FYI 1. Spk with Pt's significant other, Pt was had back injections in June by Dr. Weiss, Appt scheduled with see [facility] Dr. Jake Ingram 10/20/18 to discuss option of Kyphoplasty. 2. Pt denies CP, has Sob when in pain, denies new or unusual symptoms. 3. Pt was seen by Dr. Arnett last week, had flu vaccination at that time 4. Denies needs or concerns at this time Patient identified by name and date of . YES Signature Tricia Siegel RN October 10, 2018 LUMBAR SPINE 2 OR 3 Observed: 10/10/2018 Status: F Source: [place] 1:47 PM [facility] REPOSITORY [facility] Imaging Services [address] [place] [address] Lumbar Spine 2 or 3 Views MR#: [id number] Acct: [id number] Name: JIMMY BUTLER Rep #: [id number] : 1950 M 68 From: Hossein Gonzales MD PCP: Keegan NGUYEN,Sally Status: REG CLI Study: Lumbar Spine 2 or 3 Views Date of Exam: 10/10/18 Exam# [id number] Ordering Dr: Lamar Weiss MD STUDY: X-RAY - LUMBAR SPINE REASON FOR EXAM: Male, 68 years old. Intense pain but no recent fall. TECHNIQUE: 3 view(s) of the lumbar spine were obtained. COMPARISON: None FINDINGS: Normal lumbar lordosis. There is no substantial scoliosis. Mild degenerative anterolisthesis of L3 on L4. Mild anterior wedge compression fracture of the upper L2 vertebral body. Age is indeterminate. No other suspicious acute fractures of the lumbar spine. Mild L4-L5 disc space height narrowing. The remaining lumbar disc space heights are normal. The soft tissue structures are unremarkable. RAD/Lumbar Spine 2 or 3 Views IMPRESSION: 1. Mild anterior wedge compression fracture of the upper L2 vertebral body. Age is indeterminate. 2. Mild degenerative anterolisthesis of L3 on L4. COMMENT: If there is focal tenderness at the thoracolumbar junction area and kyphoplasty is a therapeutic consideration, MRI will be very helpful for further evaluation. 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 Reference ranges and high/low indicator flags are provided as general guidelines only. The treating physician must determine appropriate target levels/dosing based on the specific clinical situation. Performed By: #### DIG #### [facility] [address] [place] [address] BASIC METABOLIC PANL Collected: 10/05/2018 Status: F Source: [place] 10:03 AM [facility] REPOSITORY TYPE CODE TESTS RESULT OUT OF REFERENCE UNITS RANGE LAB GLU 74-99 mg/dL Glucose High 125 LAB BUN 7-21 mg/dL BUN High 39 LAB CRET 0.73-1.22 mg/dL High Creatinine 1.30 LAB NA 136-144 mmol/L Sodium 142 LAB K 3.7-5.1 mmol/L Potassium 4.2 LAB CL 97-105 mmol/L Low Chloride 91 LAB CO2 22-30 mmol/L CO2 High 45 LAB AGAP 9-18 mmol/L Low Anion Gap 6 LAB CA 8.5-10.2 mg/dL Calcium, Total 10.0 LAB GFRAA eGFR- >60 Amer. LAB GFRNAA . eGFR-All Other Races 55 Result Comment: eGFR (Estimated GFR) Units of measure: mL/min/1.73 meters squared eGFR is derived from the reexpressed MDRD Study equation using the following parameters: serum creatinine, age, gender and race. The creatinine assay has been calibrated to be traceable to IDMS. An eGFR <60 mL/min/1.73m2 for >3 months is consistent with chronic kidney disease. Refer to KDOQI guidelines for clinical interpretation. In patients with unstable renal function, e.g. those with acute kidney injury, the eGFR may not accurately reflect actual GFR. PROGRESS Observed: 09/30/2018 Status: COMPLETED Source: [place] 3:13 PM [facility] REPOSITORY HNO ID: [id number] Author: Sally Allison Service: (none) Author Type: Physician Type: Progress Notes Filed: 09/30/2018 5:26 PM Note Text: Chief Complaint Patient presents with: F/U 6 Month: HTN and COPD HPI Jimmy Butler is a 68 year old male who presents here today for a 6 mo f/u. Pt here today with his for a follow up. Barely able to stay awake during the exam. Notes he doesn't have an appetite much. PETE - Improved with BiPap nightly, but continues to sleep often through out the day. Sleeps all night and then sleeps most of the day cause he's tired. Pulm - Recently seen Dr. Arnett who started him on Zaroxoyln 2.5 mg 1 tab po q other day for 7 days for bilateral ankle edema. Pt on constant 3 liters of oxygen, stating this his breathing still isn't very good. Admits to smoking 1-2 cigarettes per day. On regimen of Prednisone 10 mg once daily, Oxygen 3 liters and Nebulizer. Following up with him in 3 months. Using Morphine Solution 0.25 ml every 4 hours prn for dyspnea or prior to breathing tests. states this comes from Penny who see's pt once a month, but Rx'd by Dr. Nicole. HTN/ASHD - Denies checking BP at home, but most times his BP is low. Denies any chest pain or dizziness. Admits to constant sob and bilateral ankle/foot edema. Following with Dr. Finn every 4 months with most recent visit on 09/20/18. On current regimen of Imdur 30 mg once daily, Digoxin 62.5 mg once daily, Eliquis 5 mg 1 tab po bid, Aldactone 25 mg 0.5 tab po once daily, Lasix 40 mg 1.5 tabs po twice daily (kidney function improved), Coreg 25 mg 1 tab po bid, Hydralazine 50 mg 0.5 tab po TID, Lisinopril 20 mg once daily and most recently added to regimen Zaroxolyn 2.5 mg 1 tab po q other day for 7 days. Back pain - Continuous lower back pain since February with no improvement. Following with Dr. Weiss who's been giving him shots with no improvement. Using Tramadol 50 mg prn with last Rx dispensed on 06/25/18. On review of medications pt is also receiving Morphine sulf 100 mg, taking 0.25 ml (5 mg) po q 4 hrs as needed for dyspnea by outside Provider. states that x-ray showed an old fracture and new fracture. Pain rated an 8/10 today, located on lower right side, but moves to either side. Pain has worsened due to recent fall. No improvement with oral medication, giving him Aleve and using icy hot as well. Has an appt with [facility]. BPH - Following with Dr. Diaz and taking Finasteride 5 mg once daily. Past medical history, appointments, medications, allergies reviewed. 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 Upper lobe nodular infiltrates. - Unspecified essential hypertension Previous Surgical History PAST SURGICAL HISTORY Procedure Laterality Date - INSERTION OF CHEST TUBE 06/19/16 left - LAMINECT W/EXPLOR LUMBAR ST jaylon Hess. - PAST SURGICAL HISTORY OF cervical fusion 2x. - PAST SURGICAL HISTORY OF torn lig. knee, left - PAST SURGICAL HISTORY OF carpel tunnel L side - PAST SURGICAL HISTORY OF ~ brain aneurysms, repaired before rupture. - TOTAL KNEE REPLACEMENT left knee - TRANSURETHRAL ELEC-SURG PROSTATECTOM ~2009 x2. Still symptomatic. Family History FAMILY HISTORY Problem Relation Age of Onset - Hypertension Mother - Emphysema Father - Cancer Brother Lung Patient Allergies ALLERGIES Allergen Reactions - Asa [Aspirin] GI Upset - Asa [Salicylates] GI Upset Current Medications Current Outpatient Prescriptions on File Prior to Visit: spironolactone (ALDACTONE) 25 mg tablet Take 0.5 tablets by mouth once daily. furosemide (LASIX) 40 mg tablet Take 1 1/2 tablets (60mg) twice daily memantine XR (NAMENDA XR) 28 mg CSpX TAKE 1 CAPSULE EVERY DAY digoxin 62.5 mcg tab Take 1 tablet by mouth once daily. predniSONE (DELTASONE) 20 mg tablet Take 2 tablets by mouth once daily. lisinopril (ZESTRIL, PRINIVIL) 20 mg tablet Take 0.5 tablets by mouth once daily. hydrALAZINE (APRESOLINE) 50 mg tablet Take 0.5 tablets by mouth three times daily. nystatin (MYCOSTATIN) 100,000 unit/mL susp Take 5 mL by mouth three times daily. carvedilol (COREG) 25 mg tablet TAKE 1 TABLET BY MOUTH TWICE DAILY WITH MEALS ELIQUIS 5 mg tab(s) TAKE 1 TABLET BY MOUTH TWICE DAILY nitrofurantoin monohydrate and macrocrystal (MACROBID) 100 mg capsule Take 1 capsule by mouth once daily. finasteride (PROSCAR) 5 mg tablet Take 1 tablet by mouth once daily. isosorbide mononitrate ER (IMDUR) 30 mg 24 hr tablet TAKE 1 TABLET BY MOUTH EVERY DAY BIPAP levalbuterol (XOPENEX) 0.63 mg/3 mL nebulizer solution Use 3 mL via nebulizer every 6 hours as needed for Wheezing/Shortness of Breath (for wheezing). Dx: J44.9 nitroglycerin sublingual (NITROQUICK) 0.4 mg SL tablet Dissolve 1 tablet under the tongue as needed. FOR CHEST PAIN. IF NO RELIEF CALL 911 COMPOUNDED PRESCRIPTION [facility] for home BP monitoring COMPOUNDED PRESCRIPTION Oxygen 3 liters Cyanocobalamin (VITAMIN B-12) 1,000 mcg subl Dissolve 1 tablet under the tongue once daily. No current facility-administered medications on file prior to visit. 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 Social History Main Topics Smoking status: Current Every Day Smoker Packs/day: 1.00 Years: 50.00 Types: Cigarettes Start date: 1964 Last attempt to quit: 12/23/2014 Smokeless tobacco: Never Used Comment: 1-2 per dy Alcohol use: Yes Comment: Infrequent beer. 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 Dog. Birds. EXAM: BP 92/58 (BP Site: Left Arm, BP Position: Sitting, BP Cuff Size: Regular Adult) Pulse (!) 52 Resp 16 Wt 68.8 kg (151 lb 9.6 oz) BMI 21.14 kg/m? General Appearance: Well appearing, semi-alert, falling asleep in exam, in no acute distress, well-hydrated, well nourished. Back: Chronic back pain Lungs: lungs clear to auscultation. No wheezing, rhonchi, rales. Heart: RRR without murmur, gallop, or rubs. No ectopy. Extremities: Edema: L>R located around ankles. States they tend to be painful when rubbed. Health Maintenance List DTAP,TDAP,TD(1 - Tdap) due on 1967 HEPATITIS C SCREENING due on 1992 LUNG CANCER SCREENING due on 2003 COLORECTAL CANCER SCREENING,SEE MODIFIER due on 05/08/2012 INFLUENZA(1) due on 07/23/2018 ANDREA/ARB MED PRESCRIBED due on 10/22/2018 LDL CHOLESTEROL due on 12/16/2018 ANNUAL PCP TEAM CHRONIC DISEASE VISIT due on 06/16/2019 BP CONTROLLED (<130/80) due on 09/20/2019 DIABETES SCREEN due on 09/20/2021 LIPID SCREEN due on 12/16/2022 ADULT PREVNAR-13 Completed PNEUMOVAX AGE 65 AND OVER WITH 5YR LOOKBACK Completed Data reviewed Appointment on 09/20/2018 Component Date Value - Glucose 09/20/2018 118* - BUN 09/20/2018 30* - Creatinine 09/20/2018 1.15 - Sodium 09/20/2018 141 - Potassium 09/20/2018 4.2 - Chloride 09/20/2018 95* - CO2 09/20/2018 39* - Anion Gap 09/20/2018 7* - Calcium 09/20/2018 9.6 - eGFR- 09/20/2018 >60 - eGFR-All Other Races 09/20/2018 >60 - Digoxin 09/20/2018 0.5* Appointment on 08/29/2018 Component Date Value - Digoxin 08/29/2018 1.3* Appointment on 08/29/2018 Component Date Value - Glucose 08/29/2018 100* - BUN 08/29/2018 39* - Creatinine 08/29/2018 1.53* - Sodium 08/29/2018 147* - Potassium 08/29/2018 4.7 - Chloride 08/29/2018 96* - CO2 08/29/2018 37* - Anion Gap 08/29/2018 14 - Calcium 08/29/2018 9.5 - eGFR- 08/29/2018 55 - eGFR-All Other Races 08/29/2018 45 Appointment on 08/19/2018 Component Date Value - Glucose 08/19/2018 93 - BUN 08/19/2018 43* - Creatinine 08/19/2018 1.42* - Sodium 08/19/2018 144 - Potassium 08/19/2018 5.2* - Chloride 08/19/2018 95* - CO2 08/19/2018 38* - Anion Gap 08/19/2018 11 - Calcium 08/19/2018 9.7 - eGFR- 08/19/2018 60 - eGFR-All Other Races 08/19/2018 49 ASSESSMENT/PLAN: 1. Chronic obstructive pulmonary disease, unspecified COPD type (HCC) - ICD9: 496, ICD10: J44.9 (primary diagnosis) - Cont f/u with Dr. Arnett - Continue current medication regimen. 2. Hypertension, unspecified type - ICD9: 401.9, ICD10: I10 - Low BP, stable - Continue current medication(s) 3. Atrial fibrillation with rapid ventricular response (HCC) - ICD9: 427.31, ICD10: I48.91 - carpometacarpal 4. PETE treated with BiPAP - ICD9: 327.23, ICD10: G47.33 - Continue current medication regimen. 5. Bilateral leg edema - ICD9: 782.3, ICD10: R60.0 - Continue current medication regimen. - Give compression stockings 6. Lumbar disc disease - ICD9: 722.93, ICD10: M51.9 Chronic low back pain - F/u with Emma LaiDr. Ingram 7. Benign prostatic hyperplasia without lower urinary tract symptoms - ICD9: 600.00, ICD10: N40.0 - Continue current medication regimen. 3 mo f/u I agree with the Chief Complaint, ROS, and Past Histories independently gathered by the clinical customer support technician and the remaining scribed note accurately describes my personal service to the patient. Sally Allison MD The documentation for this note was completed by Leesa Jeffrey Ma acting as scribe for Sally Allison MD. September 30, 2018 3:14 PM. CNOV Observed: 09/30/2018 Status: COMPLETED Source: [place] 2:40 PM [facility] REPOSITORY Office Visit (FAMPWS) JIMMY BUTLER ([id number]) 1950 M Date Time Provider Department 09/30/18 2:40 PM SALLY ALLISON FAMPWS During your visit today, we recorded the following information about you: Pulse Respiration Blood pressure Weight 52/minute 16/minute 92/58 68.8 kg Sally Allison MD 09/30/2018 5:26 PM Signed Chief Complaint Patient presents with: F/U 6 Month: HTN and COPD HPI Jimmy Butler is a 68 year old male who presents here today for a 6 mo f/u. Pt here today with his for a follow up. Barely able to stay awake during the exam. Notes he doesn't have an appetite much. PETE - Improved with BiPap nightly, but continues to sleep often through out the day. Sleeps all night and then sleeps most of the day cause he's tired. Pulm - Recently seen Dr. Arnett who started him on Zaroxoyln 2.5 mg 1 tab po q other day for 7 days for bilateral ankle edema. Pt on constant 3 liters of oxygen, stating this his breathing still isn't very good. Admits to smoking 1-2 cigarettes per day. On regimen of Prednisone 10 mg once daily, Oxygen 3 liters and Nebulizer. Following up with him in 3 months. Using Morphine Solution 0.25 ml every 4 hours prn for dyspnea or prior to breathing tests. states this comes from Penny who see's pt once a month, but Rx'd by Dr. Nicole. HTN/ASHD - Denies checking BP at home, but most times his BP is low. Denies any chest pain or dizziness. Admits to constant sob and bilateral ankle/foot edema. Following with Dr. Finn every 4 months with most recent visit on 09/20/18. On current regimen of Imdur 30 mg once daily, Digoxin 62.5 mg once daily, Eliquis 5 mg 1 tab po bid, Aldactone 25 mg 0.5 tab po once daily, Lasix 40 mg 1.5 tabs po twice daily (kidney function improved), Coreg 25 mg 1 tab po bid, Hydralazine 50 mg 0.5 tab po TID, Lisinopril 20 mg once daily and most recently added to regimen Zaroxolyn 2.5 mg 1 tab po q other day for 7 days. Back pain - Continuous lower back pain since February with no improvement. Following with Dr. Weiss who's been giving him shots with no improvement. Using Tramadol 50 mg prn with last Rx dispensed on 06/25/18. On review of medications pt is also receiving Morphine sulf 100 mg, taking 0.25 ml (5 mg) po q 4 hrs as needed for dyspnea by outside Provider. states that x-ray showed an old fracture and new fracture. Pain rated an 8/10 today, located on lower right side, but moves to either side. Pain has worsened due to recent fall. No improvement with oral medication, giving him Aleve and using icy hot as well. Has an appt with [facility]. BPH - Following with Dr. Diaz and taking Finasteride 5 mg once daily. Past medical history, appointments, medications, allergies reviewed. 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 Upper lobe nodular infiltrates. - Unspecified essential hypertension Previous Surgical History PAST SURGICAL HISTORY Procedure Laterality Date - INSERTION OF CHEST TUBE 06/19/16 left - LAMINECT W/EXPLOR LUMBAR ST jaylon Hess. - PAST SURGICAL HISTORY OF cervical fusion 2x. - PAST SURGICAL HISTORY OF torn lig. knee, left - PAST SURGICAL HISTORY OF carpel tunnel L side - PAST SURGICAL HISTORY OF ~ brain aneurysms, repaired before rupture. - TOTAL KNEE REPLACEMENT left knee - TRANSURETHRAL ELEC-SURG PROSTATECTOM ~2009 x2. Still symptomatic. Family History FAMILY HISTORY Problem Relation Age of Onset - Hypertension Mother - Emphysema Father - Cancer Brother Lung Patient Allergies ALLERGIES Allergen Reactions - Asa [Aspirin] GI Upset - Asa [Salicylates] GI Upset Current Medications Current Outpatient Prescriptions on File Prior to Visit: spironolactone (ALDACTONE) 25 mg tablet Take 0.5 tablets by mouth once daily. furosemide (LASIX) 40 mg tablet Take 1 1/2 tablets (60mg) twice daily memantine XR (NAMENDA XR) 28 mg CSpX TAKE 1 CAPSULE EVERY DAY digoxin 62.5 mcg tab Take 1 tablet by mouth once daily. predniSONE (DELTASONE) 20 mg tablet Take 2 tablets by mouth once daily. lisinopril (ZESTRIL, PRINIVIL) 20 mg tablet Take 0.5 tablets by mouth once daily. hydrALAZINE (APRESOLINE) 50 mg tablet Take 0.5 tablets by mouth three times daily. nystatin (MYCOSTATIN) 100,000 unit/mL susp Take 5 mL by mouth three times daily. carvedilol (COREG) 25 mg tablet TAKE 1 TABLET BY MOUTH TWICE DAILY WITH MEALS ELIQUIS 5 mg tab(s) TAKE 1 TABLET BY MOUTH TWICE DAILY nitrofurantoin monohydrate and macrocrystal (MACROBID) 100 mg capsule Take 1 capsule by mouth once daily. finasteride (PROSCAR) 5 mg tablet Take 1 tablet by mouth once daily. isosorbide mononitrate ER (IMDUR) 30 mg 24 hr tablet TAKE 1 TABLET BY MOUTH EVERY DAY BIPAP levalbuterol (XOPENEX) 0.63 mg/3 mL nebulizer solution Use 3 mL via nebulizer every 6 hours as needed for Wheezing/Shortness of Breath (for wheezing). Dx: J44.9 nitroglycerin sublingual (NITROQUICK) 0.4 mg SL tablet Dissolve 1 tablet under the tongue as needed. FOR CHEST PAIN. IF NO RELIEF CALL 911 COMPOUNDED PRESCRIPTION [facility] for home BP monitoring COMPOUNDED PRESCRIPTION Oxygen 3 liters Cyanocobalamin (VITAMIN B-12) 1,000 mcg subl Dissolve 1 tablet under the tongue once daily. No current facility-administered medications on file prior to visit. 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 Social History Main Topics Smoking status: Current Every Day Smoker Packs/day: 1.00 Years: 50.00 Types: Cigarettes Start date: 1964 Last attempt to quit: 12/23/2014 Smokeless tobacco: Never Used Comment: 1-2 per dy Alcohol use: Yes Comment: Infrequent beer. 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 Dog. Birds. EXAM: BP 92/58 (BP Site: Left Arm, BP Position: Sitting, BP Cuff Size: Regular Adult) Pulse (!) 52 Resp 16 Wt 68.8 kg (151 lb 9.6 oz) BMI 21.14 kg/m? General Appearance: Well appearing, semi-alert, falling asleep in exam, in no acute distress, well-hydrated, well nourished. Back: Chronic back pain Lungs: lungs clear to auscultation. No wheezing, rhonchi, rales. Heart: RRR without murmur, gallop, or rubs. No ectopy. Extremities: Edema: L>R located around ankles. States they tend to be painful when rubbed. Health Maintenance List DTAP,TDAP,TD(1 - Tdap) due on 1967 HEPATITIS C SCREENING due on 1992 LUNG CANCER SCREENING due on 2003 COLORECTAL CANCER SCREENING,SEE MODIFIER due on 05/08/2012 INFLUENZA(1) due on 07/23/2018 ANDREA/ARB MED PRESCRIBED due on 10/22/2018 LDL CHOLESTEROL due on 12/16/2018 ANNUAL PCP TEAM CHRONIC DISEASE VISIT due on 06/16/2019 BP CONTROLLED (<130/80) due on 09/20/2019 DIABETES SCREEN due on 09/20/2021 LIPID SCREEN due on 12/16/2022 ADULT PREVNAR-13 Completed PNEUMOVAX AGE 65 AND OVER WITH 5YR LOOKBACK Completed Data reviewed Appointment on 09/20/2018 Component Date Value - Glucose 09/20/2018 118* - BUN 09/20/2018 30* - Creatinine 09/20/2018 1.15 - Sodium 09/20/2018 141 - Potassium 09/20/2018 4.2 - Chloride 09/20/2018 95* - CO2 09/20/2018 39* - Anion Gap 09/20/2018 7* - Calcium 09/20/2018 9.6 - eGFR- 09/20/2018 >60 - eGFR-All Other Races 09/20/2018 >60 - Digoxin 09/20/2018 0.5* Appointment on 08/29/2018 Component Date Value - Digoxin 08/29/2018 1.3* Appointment on 08/29/2018 Component Date Value - Glucose 08/29/2018 100* - BUN 08/29/2018 39* - Creatinine 08/29/2018 1.53* - Sodium 08/29/2018 147* - Potassium 08/29/2018 4.7 - Chloride 08/29/2018 96* - CO2 08/29/2018 37* - Anion Gap 08/29/2018 14 - Calcium 08/29/2018 9.5 - eGFR- 08/29/2018 55 - eGFR-All Other Races 08/29/2018 45 Appointment on 08/19/2018 Component Date Value - Glucose 08/19/2018 93 - BUN 08/19/2018 43* - Creatinine 08/19/2018 1.42* - Sodium 08/19/2018 144 - Potassium 08/19/2018 5.2* - Chloride 08/19/2018 95* - CO2 08/19/2018 38* - Anion Gap 08/19/2018 11 - Calcium 08/19/2018 9.7 - eGFR- 08/19/2018 60 - eGFR-All Other Races 08/19/2018 49 ASSESSMENT/PLAN: 1. Chronic obstructive pulmonary disease, unspecified COPD type (HCC) - ICD9: 496, ICD10: J44.9 (primary diagnosis) - Cont f/u with Dr. Arnett - Continue current medication regimen. 2. Hypertension, unspecified type - ICD9: 401.9, ICD10: I10 - Low BP, stable - Continue current medication(s) 3. Atrial fibrillation with rapid ventricular response (HCC) - ICD9: 427.31, ICD10: I48.91 - carpometacarpal 4. PETE treated with BiPAP - ICD9: 327.23, ICD10: G47.33 - Continue current medication regimen. 5. Bilateral leg edema - ICD9: 782.3, ICD10: R60.0 - Continue current medication regimen. - Give compression stockings 6. Lumbar disc disease - ICD9: 722.93, ICD10: M51.9 Chronic low [facility] 7. Benign prostatic hyperplasia without lower urinary tract symptoms - ICD9: 600.00, ICD10: N40.0 - Continue current medication regimen. 3 mo f/u I agree with the Chief Complaint, ROS, and Past Histories independently gathered by the clinical customer support technician and the remaining scribed note accurately describes my personal service to the patient. Sally Allison MD The documentation for this note was completed by Leesa Jeffrey Ma acting as scribe for Sally Allison MD. September 30, 2018 3:14 PM. Referring Provider: SALLY ALLISON [[id number]] Allergies As of Date: 09/30/2018 Noted Allergy Reaction ASA (ASPIRIN) 07/19/2017 8 - GI Upset ASA (SALICYLATES) 01/29/2006 8 - GI Upset Date Reviewed: 09/30/2018 Reviewed by: Leesa Jeffrey Ma - Fully Assessed Reason for Visit: F/U 6 Month [444] Cmt: HTN and COPD Primary Visit Diagnosis:Chronic obstructive pulmonary disease, unspecified COPD type (HCC) [J44.9] Other Visit Diagnoses:Hypertension, unspecified type [I10] Atrial fibrillation with rapid ventricular response (HCC) [I48.91] PETE treated with BiPAP [G47.33] Bilateral leg edema [R60.0] Lumbar disc disease [M51.9] Benign prostatic hyperplasia without lower urinary tract symptoms [N40.0] Order(s):COMPRESSION STOCKINGS [[id number]] Order #: [id number] Prescriptions as of 09/30/2018 Sig: METOLAZONE 2.5 MG TABLET Take 2.5 mg by mouth every 48* SPIRONOLACTONE 25 MG TABLET Take 0.5 tablets by mouth onc* FUROSEMIDE 40 MG TABLET Take 1 1/2 tablets (60mg) twi* MEMANTINE 28 MG CAPSULE SPRIN* TAKE 1 CAPSULE EVERY DAY DIGOXIN 62.5 MCG TABLET Take 1 tablet by mouth once d* LISINOPRIL 20 MG TABLET Take 0.5 tablets by mouth onc* HYDRALAZINE 50 MG TABLET Take 0.5 tablets by mouth thr* NYSTATIN 100,000 UNIT/ML ORAL* Take 5 mL by mouth three time* CARVEDILOL 25 MG TABLET TAKE 1 TABLET BY MOUTH TWICE * ELIQUIS 5 MG TABLET TAKE 1 TABLET BY MOUTH TWICE * NITROFURANTOIN MONOHYDRATE AND * Take 1 capsule by mouth once * FINASTERIDE 5 MG TABLET Take 1 tablet by mouth once d* ISOSORBIDE MONONITRATE ER 30 * TAKE 1 TABLET BY MOUTH EVERY * BIPAP LEVALBUTEROL 0.63 MG/3 ML BIBIANA* Use 3 mL via nebulizer every * NITROGLYCERIN 0.4 MG SUBLINGU* Dissolve 1 tablet under the t* COMPOUNDED PRESCRIPTION [facility] for ho* COMPOUNDED PRESCRIPTION Oxygen 3 liters CYANOCOBALAMIN (VIT B-12) 1,0* Dissolve 1 tablet under the t* PREDNISONE 10 MG TABLET Take 1 tablet by mouth once d* Problem List As Of Date 09/30/2018 Noted Resolved Hypertension [I10] INVALID FOR* Lumbar disc disease [M51.9] INVALID FOR* Cervical disc disease [M50.90] INVALID FOR* COPD (chronic obstructive pulmonary disease) [J*INVALID FOR* BPH (benign prostatic hyperplasia) [N40.0] INVALID FOR* Urethral stricture [FRC2549] INVALID FOR* Difficulty voiding [R39.198] INVALID FOR* Frequency of urination [R35.0] INVALID FOR* Urinary retention [R33.9] INVALID FOR* Anemia [D64.9] INVALID FOR* Tobacco abuse [Z72.0] INVALID FOR* Nonischemic cardiomyopathy (HCC) [I42.8] INVALID FOR* Atrial fibrillation with rapid ventricular resp*INVALID FOR* AICD (automatic cardioverter/defibrillator) pre*INVALID FOR* Spontaneous pneumothorax [J93.83] INVALID FOR* Swallowing difficulty [R13.10] INVALID FOR* More... PETE treated with BiPAP [G47.33] INVALID FOR* More... Medications Discontinued During This Encounter ferrous sulfate 325 mg (65 mg iron) * 30 t* 2 05/09/2018 09/30/2018 Route: ORAL Sig: Take 1 tablet by mouth daily with breakfast. Patient not taking: Reported on 08/01/2018 Disc: Course of therapy completed memantine XR (NAMENDA XR) 28 mg CSpX 90 c* 3 03/15/2018 09/30/2018 Route: ORAL Sig: Take 1 capsule by mouth once daily. Disc: Duplicate Entry predniSONE (DELTASONE) 10 mg tablet 09/30/2018 Class: Historical Med Route: ORAL Sig: Take 10 mg by mouth once daily. Disc: Duplicate Entry predniSONE (DELTASONE) 20 mg tablet 10 t* 0 06/16/2018 09/30/2018 Route: ORAL Sig: Take 2 tablets by mouth once daily. Disc: Changing Therapy/Dosage Form Disposition: Return in about 3 months (around 12/31/2018). Follow-up and Disposition History Recorded Encounter Status:Closed by SALLY ALLISON MD on 09/30/18 ARTURO Observed: 09/30/2018 Status: COMPLETED Source: [place] 12:00 AM [facility] REPOSITORY Patient Outreach (FAMPWS) JIMMY BUTLER ([id number]) 1950 M Date Time Provider Department 09/30/18 ROBBIN WrenRN) FAMPWS During your visit today, we recorded the following information about you: Tricia Siegel RN 10/10/2018 5:03 PM Signed PRIMARY CARE COORDINATION FOLLOW-UP NOTE Provider Action/FYI 1. Spk with Pt's significant other, Pt was had back injections in June by Dr. Weiss, Appt scheduled with see [facility] Dr. Jake Ingram 10/20/18 to discuss option of Kyphoplasty. 2. Pt denies CP, has Sob when in pain, denies new or unusual symptoms. 3. Pt was seen by Dr. Arnett last week, had flu vaccination at that time 4. Denies needs or concerns at this time Patient identified by name and date of . YES Signature Tricia Siegel RN October 10, 2018 Allergies As of Date: 09/30/2018 Noted Allergy Reaction ASA (ASPIRIN) 07/19/2017 8 - GI Upset ASA (SALICYLATES) 01/29/2006 8 - GI Upset Date Reviewed: 09/30/2018 Reviewed by: Leesa Jeffrey Ma - Fully Assessed Reason for Visit: [facility] [0255] Cmt: [facility] Maint. / Update Reason For Visit History Recorded Prescriptions as of 09/30/2018 Sig: METOLAZONE 2.5 MG TABLET Take 2.5 mg by mouth every 48* PREDNISONE 10 MG TABLET Take 1 tablet by mouth once d* SPIRONOLACTONE 25 MG TABLET Take 0.5 tablets by mouth onc* FUROSEMIDE 40 MG TABLET Take 1 1/2 tablets (60mg) twi* MEMANTINE 28 MG CAPSULE SPRIN* TAKE 1 CAPSULE EVERY DAY DIGOXIN 62.5 MCG TABLET Take 1 tablet by mouth once d* X PREDNISONE 20 MG TABLET Take 2 tablets by mouth once * X LISINOPRIL 20 MG TABLET Take 0.5 tablets by mouth onc* HYDRALAZINE 50 MG TABLET Take 0.5 tablets by mouth thr* NYSTATIN 100,000 UNIT/ML ORAL* Take 5 mL by mouth three time* CARVEDILOL 25 MG TABLET TAKE 1 TABLET BY MOUTH TWICE * ELIQUIS 5 MG TABLET TAKE 1 TABLET BY MOUTH TWICE * NITROFURANTOIN MONOHYDRATE AND * Take 1 capsule by mouth once * FINASTERIDE 5 MG TABLET Take 1 tablet by mouth once d* ISOSORBIDE MONONITRATE ER 30 * TAKE 1 TABLET BY MOUTH EVERY * BIPAP LEVALBUTEROL 0.63 MG/3 ML BIBIANA* Use 3 mL via nebulizer every * NITROGLYCERIN 0.4 MG SUBLINGU* Dissolve 1 tablet under the t* COMPOUNDED PRESCRIPTION [facility] for ho* COMPOUNDED PRESCRIPTION Oxygen 3 liters CYANOCOBALAMIN (VIT B-12) 1,0* Dissolve 1 tablet under the t* Problem List As Of Date 09/30/2018 Noted Resolved Hypertension [I10] INVALID FOR* Lumbar disc disease [M51.9] INVALID FOR* Cervical disc disease [M50.90] INVALID FOR* COPD (chronic obstructive pulmonary disease) [J*INVALID FOR* BPH (benign prostatic hyperplasia) [N40.0] INVALID FOR* Urethral stricture [OYB1289] INVALID FOR* Difficulty voiding [R39.198] INVALID FOR* Frequency of urination [R35.0] INVALID FOR* Urinary retention [R33.9] INVALID FOR* Anemia [D64.9] INVALID FOR* Tobacco abuse [Z72.0] INVALID FOR* Nonischemic cardiomyopathy (HCC) [I42.8] INVALID FOR* Atrial fibrillation with rapid ventricular resp*INVALID FOR* AICD (automatic cardioverter/defibrillator) pre*INVALID FOR* Spontaneous pneumothorax [J93.83] INVALID FOR* Swallowing difficulty [R13.10] INVALID FOR* More... PETE treated with BiPAP [G47.33] INVALID FOR* More... Encounter Status:Closed by TRICIA SIEGEL on 10/10/18 PULMONARY VISIT REPORT Observed: 09/27/2018 Status: F Source: [place] 12:22 PM [facility] REPOSITORY [facility] [address] [place] [address] OFFICE VISIT Date of Service: 09/27/18 MR#: [id number] Acct: [id number] Name: JIMMY BUTLER Rep #: [id number] : 1950 Provider: Jet Arnett MD Age/Sex: 68/M Location: [facility] [place].[facility] Status: Signed Assessment AND Plan Problems 1. Stage 4 very severe COPD by GOLD classification J44.9 2. PETE (obstructive sleep apnea) G47.33 3. Tobacco abuse Z72.0 4. Acute on chronic systolic (congestive) heart failure I50.23 Plan Patient with worsening shortness of breath, but states saturations have been controlled with supplemental oxygen. Patient does have significant lower extremity swelling at this time and there is significant concern for acute on chronic CHF adding to current situation. Patient will be placed on Zaroxolyn for a short period of time in addition to his current diuretics. Patient understands that he should not use more than 3 doses at a time. Spoke frankly with the patient about the quit smoking entirely. Patient voiced understanding, but does not have any plan at this time. Tobacco discussion approximately 4 minutes. Patient will be given a flu shot today. Trial of Zaroxolyn. Flu shot. Continue current plan otherwise. Orders Orders: Medications New: Discontinued: Fluad 65yr up(PF)45 mcg(15 mcgx3)/0.5 mL intr45 mcg (0.5 mL) IM ONCE #1 0RF NS Z23 amuscular syringe (flu vac 2017 [id number])) Discontinued Reason: Office Medication has been Doc umented as given HPI 3 M FU: Chief Complaint: Shortness of breath on exertion Details: Patient is a 68-year-old -[place] male, currently under the care of Dr. esquivel, who presents for evaluation secondary to shortness of breath on exertion. Since last visit, patient denies any ER visits, hospitalizations or prednisone burst. 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 Patient reports that he has had significant anorexia recently. Patient states that he complies with a low-salt diet, but has noted progressive edema of his lower extremities. Patient states they can weep at times. Patient does use Andrea bandages and elevation at night, but typically does not wear them during the day. Patient continues to have a cough, but denies any change in consistency, frequency or color. Patient states he continues to smoke approximately 1 cigarette/day. Patient states this can be at any time during the day and tends to help with his nerves. Patient states he does take off his oxygen prior to any open flames. Patient has been compliant with his BiPAP therapy. Patient states occasionally will fall asleep in the chair without putting on his mask leading to decreased use overnight. Patient states that he has no problems with pain at the interface site, epistaxis or sore throat limiting compliance. 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 Accompanied by: Allergies aspirin Adverse Reaction (Verified 09/27/18 11:26) Upset Stomach Medications Finasteride [Proscar] 5 mg PO DAILY 09/09/15 [History Confirmed 09/27/18] Apixaban [Eliquis] 5 mg PO BID 06/19/16 [History Confirmed 09/27/18] Isosorbide Mononitrate [Imdur] 30 mg PO DAILY 06/19/16 [History Confirmed 09/27/18] Oxygen, Home [Home Oxygen] 3 lpm NASAL DAILY PRN PRN 08/12/16 [History Confirmed 09/27/18] hydrALAZINE [Apresoline] 25 mg PO TID 08/12/16 [History Confirmed 09/27/18] Lisinopril [Zestril] 20 mg PO QHS 03/19/17 [History Confirmed 09/27/18] Ferrous Sulfate 325 mg PO DAILY@0800 04/02/17 [History Confirmed 09/27/18] memantine 5 mg tablet 28 mg PO QDAY 11/09/17 [History Confirmed 09/27/18] Cyanocobalamin [Vitamin B12] 1,000 mcg PO DAILY@0800 05/02/18 [History Confirmed 09/27/18] Nitroglycerin 0.4 mg SL PRN PRN 05/02/18 [History Confirmed 09/27/18] prednisone 10 mg tablet 10 mg PO QDAY 05/10/18 [History Confirmed 09/27/18] Nitrofurantoin Macrocrystal [Nitrofurantoin] 100 mg PO DAILY 05/12/18 [History Confirmed 09/27/18] Carvedilol 25 mg PO BID 07/01/18 [History Confirmed 09/27/18] Hydrocodone Bitart/Apap 5-325 [[place] 5MG-325MG] 1 tab PO Q6H PRN PRN 3 Days #10 tab 08/02/18 [Rx Confirmed 09/27/18] digoxin 62.5 mcg tablet 62.5 mcg PO DAILY 09/27/18 [History Confirmed 09/27/18] furosemide 40 mg tablet 60 mg PO BID tab 09/27/18 [History Confirmed 09/27/18] metolazone 2.5 mg tablet 2.5 mg PO Q OTHER DAY #7 tab 09/27/18 [Rx Confirmed 09/27/18] spironolactone 25 mg tablet 12.5 mg PO DAILY tab 09/27/18 [History Confirmed 09/27/18] PFSH Medical History Hypersomnia (Chronic) Pleural effusion (Inactive) PETE (obstructive sleep apnea) (Chronic) Stage 4 very severe COPD by GOLD classification (Chronic) Tobacco abuse (Chronic) Shortness of breath (Chronic) Confusion (Resolved) Hypercapnic respiratory failure, chronic (Chronic) Acute and chronic respiratory failure with hypercapnia (Chronic) Paroxysmal atrial fibrillation (Chronic) Chronic respiratory failure (Chronic) Silicosis (Chronic) Acute on chronic systolic (congestive) heart failure (Acute) CHF (congestive heart failure) (Chronic) Hypertension (Chronic) Pneumothorax on left (Resolved) Surgical History History of implantable cardioverter-defibrillator (ICD) placement (Chronic) Family History Father Lung disease Brother Cancer lung Social History Smoking Status: Current every day smoker second hand exposure: Yes alcohol intake: never substance use type: does not use Review of Systems Const CONSTITUTIONAL: Positive fatigue and weight gain; negative anorexia, body ache, chills, daytime sleepiness, fever(s), night sweats, oral thrush, stops breathing during sleep, weight loss, sleeping in chair, weight loss, frequent colds, seasonal allergies, other, headache(s) or orthopnea EETM Ear Nose Throat Mouth: Positive hearing normal; negative hoarseness, dry mouth in morning, change in vision, itchy eyes, eye pain, swallowing Difficulty, ear pain, headache(s), mouth pain, nasal congestion, nasal discharge, sinus pain, sinus pressure, sore throat, other, hard of hearing, nose bleed or post nasal drip Cardio Cardiovascular: Positive murmur; negative chest pain, chest pain at rest, chest pain with activity, irregular heart rhythm, edema, shortness of breath when lying down, palpitations or other Resp Respiratory: Positive as per HPI and shortness of breath shortness of breath: Positive with activity; negative pain with cough, wheezing, chest congestion, cough, chest tightness, pain on inspiration, inhalers, increase use of rescue inhalers, snoring, apnea or other Gastro Gastrointestional: Negative bloody stools, change in appetite, difficulty swallowing, reflux, hematemesis, melena stool, loose stool, constipation or other Genitourinary: Negative blood in urine, nocturia, pain with urination or other Musc Musculoskeletal: Negative body pain, back pain, neck pain or other Skin/Breast Skin/Breast: Negative dry skin, itching, unusual bruising, breast lump, other or rash Neuro Neurological: Negative restless legs, confusion, weakness or other Psych Psychocological: Negative abnormal sleep pattern, anxiety, thoughts of hurting self/others, hopelessness or other Lymph Lymphatic: Negative easy bleeding, easy bruising, swollen lymph nodes or other Exam Const Constitutional: Positive cooperative, in no acute respiratory distress, healthy appearing, well developed, well nourished, good hygiene and conversant Head Head: Positive normocephalic and atraumatic; negative cyanosis of lips/distal nose, frontal sinus tenderness or maxillary sinus tenderness Eyes Eye: Positive clear conjunctiva; negative nystagmus, scleral abnormality or cataract present Ears Ear: Positive hearing normal and external ears normal; negative hard of hearing Nose Nose: Positive external nose normal, septum normal and no nasal discharge; negative epistaxis or nasal polyp Mouth Mouth: Positive oral mucosae normal, no lesions, dentures and posterior oropharynx is adequate; negative post nasal drip, malodorous breath or oral thrush present Mallampati Score: II: Mallampati Score Neck Neck: Positive normal visual inspection, full ROM and trachea midline; negative lymphadenopathy or JVD Chest Wall Chest: Positive symmetric chest movement and increased A/P diameter; negative crepitus or tenderness Resp lung sounds: Positive rales, diminished, wheeze present on forced exhalation, prolonged expiratory time and normal chronic state of increased work of breathing; negative wheezes, rhonchi, use of accessory muscles or dullness to percussion Cardio Cardiac: Positive murmur, regular rate, S1 normal and S2 normal; negative rub or gallop GI GI: Positive normal to inspection and normal bowel sounds; negative distended, ascites or epigastric tenderness Genitourinary: Positive deferred Musc Musculoskeletal: Positive in a wheelchair; negative kyphosis or scoliosis Skin Pulmonary Skin Exam: Positive intact, scaly and dermal atrophy; negative rash, lesion or ulcers Pulses Pulse: Yes radial pulses present Extremities Extremities: Yes capillary refill normal, Yes clubbing, No cyanosis, Yes edema Location: lower extremity location: Bilateral chronic, pitting +3 Neuro Neurologic: Yes no focal neuro deficits, Yes normal concentration, Yes understands questions, Yes cooperative, Yes normal cognition, Yes normal coordination, Yes conversant Lymph Lymphatic: No lymphadenopathy Psych Appearance: Positive grossly normal Mental Status: Positive mental status grossly normal Mood: Positive congruent mood Affect: Positive normal affect Immunizations Fluad 2017- 65yr up(PF)45 mcg(15 mcgx3)/0.5 mL intramuscular syringe Performing Provider: Jet Arnett MD Administered by: Deja Chu on 09/27/18 12:06 Dose Route Admin Location Lot Number Expiration Date NDC Roll Icer 45 mcg IM Right Deltoid [id number] 03/21/19 98294-103-77 SEQIRUS VIS Given Date VIS Publication Date 09/27/18 06/28/15 Eligibility Eligibility Date Pulmonary Procedure Smoking Cessation Education: Yes 3-10 minutes, education provided, continue to encourage smoking cessation, expresses understanding and needs reinforcement Coding Level of Care Code Off vis,est,level 3 Diagnoses Stage 4 very severe COPD by GOLD classification J44.9 PETE (obstructive sleep apnea) G47.33 Tobacco abuse Z72.0 Acute on chronic systolic (congestive) heart failure I50.23 09/27/18 1222 <Electronically signed by Jet Arnett MD> Date Jet Arnett MD Cosigner Signature: Date (if applicable) CC: Elijah Wayne MD PROGRESS Observed: 09/20/2018 Status: COMPLETED Source: [place] 4:38 PM [facility] REPOSITORY HNO ID: [id number] Author: Jarett Finn Service: (none) Author Type: Physician Type: Progress Notes Filed: 09/20/2018 5:20 PM Note Text: PERTINENT CARDIAC HISTORY Cardiomyopathy - post viral HTN NSVT - ICD 2014 CHF - systolic Silicosis PAF AAA - 4.4 cm ADHERENCE TO GUIDELINES ANDREA-I or ARB for HF with prior LVEF<40 (NQF 0081) - met ASA or Plavix for ASHD (NQF 0067) - N/A Beta kade for ASHD with prior [place] or prior LVEF<40 (NQF 0070) - N/A Beta kade for HF with prior LVEF<40 (NQF 0083) - met ANDREA-I or ARB for ASHD with DM or prior LVEF<40 (NQF 0066) - N/A Statin therapy for ASHD or FHL or DM - N/A BMI documented and plan if >25 (NQF 0421) - lifestyle recommendation form Tobacco use screening and referral (NQF 0028) - lifestyle recommendation form Recommendation for whole food, plant based diet - lifestyle recommendation form CLINICAL IMPRESSION/PLAN: Jimmy Butler has stable nonischemic cardiomyopathy. He's still having short runs of SVT on exam. He will have basic profile and digoxin level. He is on a very small dose of digoxin at this time, although it may need to be adjusted. We may need to restart him on Aldactone for better control of his edema. If his potassium level is reasonable, we will try at low dose. I will see him in 4 months or as needed. I will pass along his concerns about his back pain to Dr. Allison. Written and verbal health teaching given to patient, patient verbalizes understanding and agrees with treatment plan. DIAGNOSIS FOR VISIT: CHF PAF HISTORY OF PRESENT ILLNESS Jimmy Butler returns for follow-up of his cardiomyopathy and hypertension. Exercise tolerance has been stable, but he is largely confined to wheelchair. His pulmonary status is gradually worsening. He is having more trouble with back pain and is under the care of pain management. He has not been satisfied with the care he has gotten and reports that he is having intermittent exacerbation of pain. He's had no chest tightness. He has had chronic pedal edema without change. He denies syncope, TIAs, amaurosis and claudication. He has received no therapies from his device and is unaware of his heart rhythm. ALLERGIES: ALLERGIES Allergen Reactions - Asa [Aspirin] GI Upset - Asa [Salicylates] GI Upset CURRENT OUTPATIENT MEDICATIONS: furosemide (LASIX) 40 mg tablet Take 1 1/2 tablets (60mg) twice daily digoxin 62.5 mcg tab Take 1 tablet by mouth once daily. lisinopril (ZESTRIL, PRINIVIL) 20 mg tablet Take 0.5 tablets by mouth once daily. hydrALAZINE (APRESOLINE) 50 mg tablet Take 0.5 tablets by mouth three times daily. nystatin (MYCOSTATIN) 100,000 unit/mL susp Take 5 mL by mouth three times daily. carvedilol (COREG) 25 mg tablet TAKE 1 TABLET BY MOUTH TWICE DAILY WITH MEALS ELIQUIS 5 mg tab(s) TAKE 1 TABLET BY MOUTH TWICE DAILY nitrofurantoin monohydrate and macrocrystal (MACROBID) 100 mg capsule Take 1 capsule by mouth once daily. finasteride (PROSCAR) 5 mg tablet Take 1 tablet by mouth once daily. memantine XR (NAMENDA XR) 28 mg CSpX Take 1 capsule by mouth once daily. isosorbide mononitrate ER (IMDUR) 30 mg 24 hr tablet TAKE 1 TABLET BY MOUTH EVERY DAY BIPAP levalbuterol (XOPENEX) 0.63 mg/3 mL nebulizer solution Use 3 mL via nebulizer every 6 hours as needed for Wheezing/Shortness of Breath (for wheezing). Dx: J44.9 nitroglycerin sublingual (NITROQUICK) 0.4 mg SL tablet Dissolve 1 tablet under the tongue as needed. FOR CHEST PAIN. IF NO RELIEF CALL 911 predniSONE (DELTASONE) 10 mg tablet Take 10 mg by mouth once daily. COMPOUNDED PRESCRIPTION [facility] for home BP monitoring COMPOUNDED PRESCRIPTION Oxygen 3 liters Cyanocobalamin (VITAMIN B-12) 1,000 mcg subl Dissolve 1 tablet under the tongue once daily. memantine XR (NAMENDA XR) 28 mg CSpX TAKE 1 CAPSULE EVERY DAY predniSONE (DELTASONE) 20 mg tablet Take 2 tablets by mouth once daily. ferrous sulfate 325 mg (65 mg iron) tablet Take 1 tablet by mouth daily with breakfast. PHYSICAL EXAMINATION: VITAL SIGNS: BP 95/68 Pulse 77 Ht 5' 11 (1.80m) Wt 154 lb (69.9kg) BMI 21.49 kg/(m2). Chest: Breath sounds are diminished. There are scattered rhonchi. There is marked expiratory prolongation. There are end inspiratory rales. Air entry is equal. Cardiac: irregularly irregular rhythm, s1 and S2 are normal. PMI is nondisplaced. there is a soft systolic ejection murmur and a soft murmur of tricuspid insufficiency Carotids are brisk without bruits. JVP is less than 10 cm. Abdomen: Soft and nontender. There are no pulsatile masses or bruits. No liver enlargement. Bowel sounds are active. Extremities:1 plus edema. Pulses are intact and symmetrical. Recent labs were reviewed. Renal function is moderately impaired and somewhat worse. Digoxin level was 1.3. Electronically Signed: Jarett Finn MD September 20, 2018 4:38 PM CC: Sally Allison MD DIGOXIN Collected: 09/20/2018 Status: F Source: [place] 11:52 AM [facility] REPOSITORY TYPE CODE TESTS RESULT OUT OF REFERENCE UNITS RANGE LAB DIG 0.6-1.2 ng/mL Low Digoxin 0.5 Result Comment: Provided therapeutic concentrations are based on the 2008 ESC Guidelines for the Diagnosis and Treatment of Acute and Chronic Heart Failure. Reference ranges and high/low indicator flags are provided as general guidelines only. The treating physician must determine appropriate target levels/dosing based on the specific clinical situation. Performed By: #### DIG #### [facility] [address] [place], [place] [address] BASIC METABOLIC PANL Collected: 09/20/2018 Status: F Source: [place] 11:51 AM [facility] REPOSITORY TYPE CODE TESTS RESULT OUT OF REFERENCE UNITS RANGE LAB GLU 74-99 mg/dL Glucose High 118 LAB BUN 7-21 mg/dL BUN High 30 LAB CRET 0.73-1.22 mg/dL Creatinine 1.15 LAB NA 136-144 mmol/L Sodium 141 LAB K 3.7-5.1 mmol/L Potassium 4.2 LAB CL 97-105 mmol/L Low Chloride 95 LAB CO2 22-30 mmol/L CO2 High 39 LAB AGAP 9-18 mmol/L Low Anion Gap 7 LAB CA 8.5-10.2 mg/dL Calcium, Total 9.6 LAB GFRAA eGFR- >60 Amer. LAB GFRNAA . eGFR-All Other Races >60 Result Comment: eGFR (Estimated GFR) Units of measure: mL/min/1.73 meters squared eGFR is derived from the reexpressed MDRD Study equation using the following parameters: serum creatinine, age, gender and race. The creatinine assay has been calibrated to be traceable to IDMS. An eGFR <60 mL/min/1.73m2 for >3 months is consistent with chronic kidney disease. Refer to KDOQI guidelines for clinical interpretation. In patients with unstable renal function, e.g. those with acute kidney injury, the eGFR may not accurately reflect actual GFR. CNOV Observed: 09/20/2018 Status: COMPLETED Source: [place] 11:15 AM [facility] REPOSITORY Office Visit (CAWSTR) JIMMY BUTLER ([id number]) 1950 M Date Time Provider Department 09/20/18 11:15 AM JARETT FINN During your visit today, we recorded the following information about you: Pulse Blood pressure Weight Height 77/minute 95/68 69.9 kg 1.803 m Jarett Finn MD 09/20/2018 5:20 PM Signed PERTINENT CARDIAC HISTORY Cardiomyopathy - post viral HTN NSVT - ICD 2014 CHF - systolic Silicosis PAF AAA - 4.4 cm ADHERENCE TO GUIDELINES ANDREA-I or ARB for HF with prior LVEF<40 (NQF 0081) - met ASA or Plavix for ASHD (NQF 0067) - N/A Beta kade for ASHD with prior [place] or prior LVEF<40 (NQF 0070) - N/A Beta kade for HF with prior LVEF<40 (NQF 0083) - met ANDREA-I or ARB for ASHD with DM or prior LVEF<40 (NQF 0066) - N/A Statin therapy for ASHD or FHL or DM - N/A BMI documented and plan if >25 (NQF 0421) - lifestyle recommendation form Tobacco use screening and referral (NQF 0028) - lifestyle recommendation form Recommendation for whole food, plant based diet - lifestyle recommendation form CLINICAL IMPRESSION/PLAN: Jimmy Butler has stable nonischemic cardiomyopathy. He's still having short runs of SVT on exam. He will have basic profile and digoxin level. He is on a very small dose of digoxin at this time, although it may need to be adjusted. We may need to restart him on Aldactone for better control of his edema. If his potassium level is reasonable, we will try at low dose. I will see him in 4 months or as needed. I will pass along his concerns about his back pain to Dr. Allison. Written and verbal health teaching given to patient, patient verbalizes understanding and agrees with treatment plan. DIAGNOSIS FOR VISIT: CHF PAF HISTORY OF PRESENT ILLNESS Jimmy Butler returns for follow-up of his cardiomyopathy and hypertension. Exercise tolerance has been stable, but he is largely confined to wheelchair. His pulmonary status is gradually worsening. He is having more trouble with back pain and is under the care of pain management. He has not been satisfied with the care he has gotten and reports that he is having intermittent exacerbation of pain. He's had no chest tightness. He has had chronic pedal edema without change. He denies syncope, TIAs, amaurosis and claudication. He has received no therapies from his device and is unaware of his heart rhythm. ALLERGIES: ALLERGIES Allergen Reactions - Asa [Aspirin] GI Upset - Asa [Salicylates] GI Upset CURRENT OUTPATIENT MEDICATIONS: furosemide (LASIX) 40 mg tablet Take 1 1/2 tablets (60mg) twice daily digoxin 62.5 mcg tab Take 1 tablet by mouth once daily. lisinopril (ZESTRIL, PRINIVIL) 20 mg tablet Take 0.5 tablets by mouth once daily. hydrALAZINE (APRESOLINE) 50 mg tablet Take 0.5 tablets by mouth three times daily. nystatin (MYCOSTATIN) 100,000 unit/mL susp Take 5 mL by mouth three times daily. carvedilol (COREG) 25 mg tablet TAKE 1 TABLET BY MOUTH TWICE DAILY WITH MEALS ELIQUIS 5 mg tab(s) TAKE 1 TABLET BY MOUTH TWICE DAILY nitrofurantoin monohydrate and macrocrystal (MACROBID) 100 mg capsule Take 1 capsule by mouth once daily. finasteride (PROSCAR) 5 mg tablet Take 1 tablet by mouth once daily. memantine XR (NAMENDA XR) 28 mg CSpX Take 1 capsule by mouth once daily. isosorbide mononitrate ER (IMDUR) 30 mg 24 hr tablet TAKE 1 TABLET BY MOUTH EVERY DAY BIPAP levalbuterol (XOPENEX) 0.63 mg/3 mL nebulizer solution Use 3 mL via nebulizer every 6 hours as needed for Wheezing/Shortness of Breath (for wheezing). Dx: J44.9 nitroglycerin sublingual (NITROQUICK) 0.4 mg SL tablet Dissolve 1 tablet under the tongue as needed. FOR CHEST PAIN. IF NO RELIEF CALL 911 predniSONE (DELTASONE) 10 mg tablet Take 10 mg by mouth once daily. COMPOUNDED PRESCRIPTION [facility] for home BP monitoring COMPOUNDED PRESCRIPTION Oxygen 3 liters Cyanocobalamin (VITAMIN B-12) 1,000 mcg subl Dissolve 1 tablet under the tongue once daily. memantine XR (NAMENDA XR) 28 mg CSpX TAKE 1 CAPSULE EVERY DAY predniSONE (DELTASONE) 20 mg tablet Take 2 tablets by mouth once daily. ferrous sulfate 325 mg (65 mg iron) tablet Take 1 tablet by mouth daily with breakfast. PHYSICAL EXAMINATION: VITAL SIGNS: BP 95/68 Pulse 77 Ht 5' 11 (1.80m) Wt 154 lb (69.9kg) BMI 21.49 kg/(m2). Chest: Breath sounds are diminished. There are scattered rhonchi. There is marked expiratory prolongation. There are end inspiratory rales. Air entry is equal. Cardiac: irregularly irregular rhythm, s1 and S2 are normal. PMI is nondisplaced. there is a soft systolic ejection murmur and a soft murmur of tricuspid insufficiency Carotids are brisk without bruits. JVP is less than 10 cm. Abdomen: Soft and nontender. There are no pulsatile masses or bruits. No liver enlargement. Bowel sounds are active. Extremities:1 plus edema. Pulses are intact and symmetrical. Recent labs were reviewed. Renal function is moderately impaired and somewhat worse. Digoxin level was 1.3. Electronically Signed: Jarett Finn MD September 20, 2018 4:38 PM CC: Sally Allison MD Referring Provider: JARETT FINN [[id number]] Allergies As of Date: 09/20/2018 Noted Allergy Reaction ASA (ASPIRIN) 07/19/2017 8 - GI Upset ASA (SALICYLATES) 01/29/2006 8 - GI Upset Date Reviewed: 09/20/2018 Reviewed by: Nelly Carson MA - Fully Assessed Reason for Visit: Established Patient [175] Primary Visit Diagnosis:ASHD (arteriosclerotic heart disease) [I25.10] Other Visit Diagnoses:Cardiomyopathy, nonischemic (HCC) [I42.8] Chronic systolic CHF (congestive heart failure) (HCC) [I50.22] PAF (paroxysmal atrial fibrillation) (HCC) [I48.0] Order(s):furosemide (LASIX) 40 mg tabletTake 1 1/2 tablets (60mg) twice dailyDisp: 270 tabletRfl: 3 DIGOXIN/LANOXIN [SQDIG] Order #: [id number] FUTURE BASIC METABOLIC PNL [SQBMP] Order #: [id number] FUTURE Prescriptions as of 09/20/2018 Sig: HYDRALAZINE 50 MG TABLET Take 0.5 tablets by mouth thr* NYSTATIN 100,000 UNIT/ML ORAL* Take 5 mL by mouth three time* CARVEDILOL 25 MG TABLET TAKE 1 TABLET BY MOUTH TWICE * ELIQUIS 5 MG TABLET TAKE 1 TABLET BY MOUTH TWICE * NITROFURANTOIN MONOHYDRATE AND * Take 1 capsule by mouth once * FINASTERIDE 5 MG TABLET Take 1 tablet by mouth once d* MEMANTINE 28 MG CAPSULE SPRIN* Take 1 capsule by mouth once * ISOSORBIDE MONONITRATE ER 30 * TAKE 1 TABLET BY MOUTH EVERY * BIPAP LEVALBUTEROL 0.63 MG/3 ML BIBIANA* Use 3 mL via nebulizer every * NITROGLYCERIN 0.4 MG SUBLINGU* Dissolve 1 tablet under the t* PREDNISONE 10 MG TABLET Take 10 mg by mouth once asad* COMPOUNDED PRESCRIPTION [facility] for ho* COMPOUNDED PRESCRIPTION Oxygen 3 liters CYANOCOBALAMIN (VIT B-12) 1,0* Dissolve 1 tablet under the t* FUROSEMIDE 40 MG TABLET Take 1 1/2 tablets (60mg) twi* DIGOXIN 62.5 MCG TABLET Take 1 tablet by mouth once d* PREDNISONE 20 MG TABLET Take 2 tablets by mouth once * Patient not taking: Reported on 09/20/2018 LISINOPRIL 20 MG TABLET Take 0.5 tablets by mouth onc* FERROUS SULFATE 325 MG (65 MG* Take 1 tablet by mouth daily * Patient not taking: Reported on 08/01/2018 Problem List As Of Date 09/20/2018 Noted Resolved Hypertension [I10] INVALID FOR* Lumbar disc disease [M51.9] INVALID FOR* Cervical disc disease [M50.90] INVALID FOR* COPD (chronic obstructive pulmonary disease) [J*INVALID FOR* BPH (benign prostatic hyperplasia) [N40.0] INVALID FOR* Urethral stricture [JLY9336] INVALID FOR* Difficulty voiding [R39.198] INVALID FOR* Frequency of urination [R35.0] INVALID FOR* Urinary retention [R33.9] INVALID FOR* Anemia [D64.9] INVALID FOR* Tobacco abuse [Z72.0] INVALID FOR* Nonischemic cardiomyopathy (HCC) [I42.8] INVALID FOR* Atrial fibrillation with rapid ventricular resp*INVALID FOR* AICD (automatic cardioverter/defibrillator) pre*INVALID FOR* Spontaneous pneumothorax [J93.83] INVALID FOR* Swallowing difficulty [R13.10] INVALID FOR* More... PETE treated with BiPAP [G47.33] INVALID FOR* More... Prescriptions ordered this encounter Disp Refills Start End FUROSEMIDE 40 MG TABLET 270 * 3 09/20/2018 Sig: Take 1 1/2 tablets (60mg) twice daily Medications Discontinued During This Encounter furosemide (LASIX) 40 mg tablet 08/31/2018 09/20/2018 Class: Med Update Sig: Take 1 1/2 tablets (60mg) twice daily Disc: Reason for discontinue is not on file. Follow-up and Disposition History Recorded Encounter Status:Closed by JARETT FINN MD on 09/20/18 DIGOXIN Collected: 08/29/2018 Status: F Source: [place] 4:25 PM [facility] REPOSITORY TYPE CODE TESTS RESULT OUT OF REFERENCE UNITS RANGE LAB DIG 0.6-1.2 ng/mL High Digoxin 1.3 Result Comment: Provided therapeutic concentrations are based on the 2008 ESC Guidelines for the Diagnosis and Treatment of Acute and Chronic Heart Failure. Reference ranges and high/low indicator flags are provided as general guidelines only. The treating physician must determine appropriate target levels/dosing based on the specific clinical situation. Performed By: #### DIG #### [facility] [address] [place] [id number] BASIC METABOLIC PANL Collected: 08/29/2018 Status: F Source: [place] 12:14 PM [facility] REPOSITORY TYPE CODE TESTS RESULT OUT OF REFERENCE UNITS RANGE LAB GLU 74-99 mg/dL High Glucose 100 Result Comment: The [place] Diabetes Association (ADA) provides guidance for cutoff values for fasting glucose and random glucose. The ADA defines fasting as no caloric intake for at least 8 hours. Fas ting plasma glucose results between 100 to 125 mg/dL indicate increased risk for diabetes (prediabetes). Fasting plasma glucose results greater than or equal to 126 mg/dL meet the criteria for diagnosis of diabetes. In the absence of unequivocal hyperglycemia, results should be confirmed by repeat testing. In a patient with classic symptoms of hyperglycemia or hyperglycemic crisis, random plasma glucose results greater than or equal to 200 mg/dL meet the criteria for diagnosis of diabetes. Reference: Standards of Medical Care in Diabetes 2016, [place] [employer] Association. Diabetes Care. 2016.39(Suppl 1). LAB BUN 9-24 mg/dL BUN High 39 LAB CRET 0.73-1.22 mg/dL Creatinine High 1.53 LAB NA 136-144 mmol/L Sodium High 147 LAB K 3.7-5.1 mmol/L Potassium 4.7 LAB CL 97-105 mmol/L Low Chloride 96 LAB CO2 22-30 mmol/L CO2 High 37 LAB AGAP 9-18 mmol/L Anion Gap 14 LAB CA 8.5-10.2 mg/dL Calcium, Total 9.5 LAB GFRAA eGFR- Amer. 55 LAB GFRNAA . eGFR-All Other Races 45 Result Comment: eGFR (Estimated GFR) Units of measure: mL/min/1.73 meters squared eGFR is derived from the reexpressed MDRD Study equation using the following parameters: serum creatinine, age, gender and race. The creatinine assay has been calibrated to be traceable to IDMS. An eGFR <60 mL/min/1.73m2 for >3 months is consistent with chronic kidney disease. Refer to KDOQI guidelines for clinical interpretation. In patients with unstable renal function, e.g. those with acute kidney injury, the eGFR may not accurately reflect actual GFR. Performed By: #### BMP #### [facility] [address] [place], [place] [address] BASIC METABOLIC PANL Collected: 08/19/2018 Status: F Source: [place] 12:33 PM [facility] REPOSITORY TYPE CODE TESTS RESULT OUT OF REFERENCE UNITS RANGE LAB GLU 74-99 mg/dL Glucose 93 Result Comment: The [place] Diabetes [employer] (ADA) provides guidance for cutoff values for fasting glucose and random glucose. The ADA defines fasting as no caloric intake for at least 8 hours. Fas ting plasma glucose results between 100 to 125 mg/dL indicate increased risk for diabetes (prediabetes). Fasting plasma glucose results greater than or equal to 126 mg/dL meet the criteria for diagnosis of diabetes. In the absence of unequivocal hyperglycemia, results should be confirmed by repeat testing. In a patient with classic symptoms of hyperglycemia or hyperglycemic crisis, random plasma glucose results greater than or equal to 200 mg/dL meet the criteria for diagnosis of diabetes. Reference: Standards of Medical Care in Diabetes 2016, [place] [employer]. Diabetes Care. 2016.39(Suppl 1). LAB BUN 9-24 mg/dL BUN High 43 LAB CRET 0.73-1.22 mg/dL Creatinine High 1.42 LAB NA 136-144 mmol/L Sodium 144 LAB K 3.7-5.1 mmol/L Potassium High 5.2 LAB CL 97-105 mmol/L Low Chloride 95 LAB CO2 22-30 mmol/L CO2 High 38 LAB AGAP 9-18 mmol/L Anion Gap 11 LAB CA 8.5-10.2 mg/dL Calcium, Total 9.7 LAB GFRAA eGFR- Amer. 60 LAB GFRNAA . eGFR-All Other Races 49 Result Comment: eGFR (Estimated GFR) Units of measure: mL/min/1.73 meters squared eGFR is derived from the reexpressed MDRD Study equation using the following parameters: serum creatinine, age, gender and race. The creatinine assay has been calibrated to be traceable to IDMS. An eGFR <60 mL/min/1.73m2 for >3 months is consistent with chronic kidney disease. Refer to KDOQI guidelines for clinical interpretation. In patients with unstable renal function, e.g. those with acute kidney injury, the eGFR may not accurately reflect actual GFR. Performed By: #### BMP #### [facility] [address] [place], [place] [address] EMERGENCY DEPARTMENT Observed: 08/02/2018 Status: F Source: [place] 3:01 PM [facility] REPOSITORY [facility] Medical Records Department [address] [place] [address] Emergency Department Summary 08/02/18 1455 MR#: [id number] Acct: [id number] Name: JIMMY BUTLER Rep #: [id number] : 1950 68 From: Ignacio New MD PCP: Sally Allison MD Status: REG ER - ER Visit Summary Date of Service: 08/02/18 Chief Complaint: Acute left flank pain History of Present Illness: The patient is a 68 M who presents with acute left flank pain that started last evening. He states he was reaching for something when he developed severe excruciating pain. He denies fever, chills night sweats. He denies dysuria, frequency, urgency or hematuria. He denies history of renal ureterolithiasis. He does have history of end-stage renal disease. He states he has slight worsening of pain with movement. The pain is constant. He has not taken anything for the pain. He states he has not noted a rash. He denies respiratory symptoms. He does report shortness of breath and dyspnea exertion secondary to chronic COPD. He is oxygen dependent. He also has history of obstructive sleep apnea. Physical Examination: Patient appears uncomfortable. He is thin. Vital signs noted and remarkable for respiratory rate of 22. He is not hypoxic. H EENT exam is unremarkable. Lungs revealed decreased movement of air bilaterally with end inspiratory rales. Slight scattered wheezing noted on expiration. Heart is regular without murmur, gallop or rub. Abdomen is soft nontender with no palpable cell mass or abdominal bruit. There is no reproducible left flank pain. Movement causes slight exacerbation of his pain. There is no evidence of inguinal lymphadenopathy or hernia. No rash noted. Neuro exam is nonfocal. Test Results: Basic metabolic panel marked for an elevated creatinine 1.42 and a BUN of 44. UA is remarkable for glucose. Emergency Department Course and Treatment: With minimal discomfort with movement and not reproducible pain on exam differential would include ureterolithiasis versus musculoskeletal versus other cause. Patient was medicated with 4 mg of morphine. He was reassessed at 1450 and reports marked improvement. Treatment Plan: Prescription for p.o. analgesia and follow- up with PCP as needed Disposition: Discharged to home with significant other/balance Impression: Musculoskeletal left back pain without sciatica This note was generated with [employer] dictation software. It may contain incorrect words, spelling, and punctuation that were not noted in review of the chart prior to signing ED Disposition - Plan for ED Patient: Disposition: Home or Assisted Living Chief Complaint: Back Instructions: ED Spasm Back No Trauma Prescriptions: Hydrocodone Bitart/Apap 5-325 [[place] 5MG-325MG] 1 tab PO Q6H PRN PRN 3 Days #10 tab PRN Reason: Pain Referrals: Sally Allison MD [Primary Care Provider] - 3-5 Days if not improving What to do if you have Problems For any increased pain, shortness of breath, bleeding, nausea or vomiting, chest pain, or any unexpected problems, contact your Primary Care Provider. Call [facility] ([phone]) or report to the closest Emergency Room. Call 911 if necessary. 08/02/18 1501 <Electronically signed by Ignacio New MD> Date Ignacio New MD Cosigner Signature (If Indicated): Date CC: Sally Allison MD URINALYSIS, COMPLETE Collected: 08/02/2018 Status: F Source: [place] 1:00 PM [facility] REPOSITORY Order Comment: Order Date: 08/02/18 How was Urine Obtained? CLEAN CATCH TYPE CODE TESTS RESULT OUT OF RANGE REFERENCE UNITS LAB L400.3000 Yellow COLOR Normal Yellow LAB L400.3050 Clear Normal CLARITY Clear LAB L400.3200 Normal mg/dl High GLUCOSE, UR 100 LAB L400.3300 Negative mg/dL Normal BILIRUBIN URINE Negative LAB L400.3400 Negative mg/dl Normal KETONE UR Negative LAB L400.3465 1.002-1.030 Normal SP.GR. DIPSTX 1.015 LAB L400.3550 5.0 - 8.0 pH UR Normal 6.0 LAB L400.3600 Negative mg/dl PROT Normal DIPSTX Negative LAB L400.3700 Normal mg/dl Normal UROBILI Normal LAB L400.3750 Negative Normal NITRITE UR Negative LAB L400.3780 Negative /ul Normal OCCULT BLOOD-UR Negative LAB L400.3800 Negative /ul High LEUK 25 ESTERASE LAB L400.4050 0-5 /hpf WBC Normal 0-5 SEEN LAB L400.4100 0-5 /hpf 0 Normal RBC-UA SEEN LAB L400.4150 0-5 /hpf SQUAM Normal EPI 0-5 SEEN LAB L400.4300 None Seen /hpf 0 Normal BACTERIA SEEN LAB L400.4350 <or=2+ /hpf 0 Normal MUCUS, URINE SEEN Performed By: #### L400.0001 #### [facility] [address] [place], [address] BASIC METABOLIC Collected: 08/02/2018 Status: F Source: [place] PROFILE (BMP) 12:10 PM [facility] REPOSITORY TYPE CODE TESTS RESULT OUT OF RANGE REFERENCE UNITS LAB L501.0100 74-106 mg/dL High GLU 112 Result Comment: Fasting Glucose result from 100 to 125 mg/dL suggests IMPAIRED HOMEOSTASIS per A.D.A. criteria. Please note revised GLUCOSE reference range effective 2017. LAB L501.1000 7-18 mg/dL High BUN 44 LAB L501.1100 0.70-1.30 mg/dL High CREAT,SERUM 1.42 Result Comment: The validity of the calculated GFR AND GFRAA in patients over 70 years has not been determined. Clinical correlation is essential. LAB L501.1110 >60 mL/min Low EST GFR 52 Result Comment: Non- GFR Calc LAB L501.1115 >60 mL/min Normal EST GFR - AA 63 Result Comment: GFR Calc LAB L501.1255 ml/min Normal Estimated CRCL 46.58 LAB L501.1300 10-20 RATIO High BUN/CRE 31.0 LAB L501.2200 8.5-10 mg/dL Normal .1 CA 9.2 LAB L501.5300 136-14 mmol/L Normal 5 NA 145 LAB L501.5600 3.5-5. mmol/L Normal 1 K 5.0 LAB L501.5900 98-107 mmol/L Normal CL 100 LAB L501.6100 21.0-3 mmol/L High 2.0 CO2 43.0 LAB L501.6200 5-15 Low GAP 2 Performed By: #### L500.2500 #### [facility] [address] [place] [address]. [place], [address] ECG COMPLETE W Observed: 08/01/2018 Status: F Source: [facility] 3:11 PM [facility] REPOSITORY NAME : JIMMY BUTLER PID : [id number] : 1950 Gender : Male Race : ORD : [id number] Procedure Date : Aug 01 2018 15:11:16 Edit Date : Aug 04 2018 16:08:48 Diagnosis:SINUS RHYTHM WITH PREMATURE SUPRAVENTRICULAR COMPLEXES LEFT AXIS DEVIATION ST & LATERAL T WAVE ABNORMALITY ABNORMAL ECG Confirmed by BIENVENIDO CRAVEN D.O. ([id number]) on 08/04/2018 4:08:37 PM Ventricular Rate : 100 BPM Atrial Rate : 100 BPM P-R Interval : 134 ms QRS Duration : 112 ms Q-T Interval : 344 ms QTC Calculation(Bezet) : 443 ms P [place] : 12 degrees R [place] : -38 degrees T [place] : 101 degrees Test Reason : Location : 158 : [facility] Overread By : BIENVENIDO CRAVEN D.O. Edited By : BIENVENIDO CRAVEN D.O. Referred By : TONY RICK Acquired by : FABRICE DE LA GARZA Observed: 08/01/2018 Status: COMPLETED Source: [place] 10:30 AM [facility] REPOSITORY Office Visit (CARDMM) JIMMY BUTLER ([id number]) 1950 M Date Time Provider Department 08/01/18 10:30 AM TONY RICK During your visit today, we recorded the following information about you: Pulse Blood pressure Weight 100/minute 96/60 69.4 kg Tony Rick MD, 08/01/2018 11:48 AM Signed EP STAFF NOTE: ? Please note: This note has been produced using speech recognition software and may contain errors related to that system including grammar, punctuation, spelling, gender and words and phrases that may be inappropriate ? ?ekg TODAY 08-01-18 - NSR with frequent multifocal PACs, IVCD ? PE: Vitals: BP 96/60 Pulse 100 Wt 69.4 kg (153 lb) SpO2 100% BMI 21.34 kg/m? General: On home O2. In no acute distress. Neck: no carotid bruits Lungs: diffuse wheezing bilaterally. Heart: IRIR, No M/G/R Extremities: trace peripheral edema bilaterally. ? ? ? DEVICE CHECK: ? UNDERLYING RHYTHM: SR ? BATTERY STATUS: Normal and shows no significant depletion. COUNTERS SINCE 04/26/17 ? ATRIAL ARRHYTHMIAS: AF burden <1%. ?On eliquis ? VENTRICULAR ARRHYTHMIAS: There have been no ventricular detections since the last evaluation. ? LEAD MEASUREMENTS: Capture and sensing are appropriate. The pacing outputs maintain safety margin. Review of the lead impedance trends are normal. ? IMPLANT SITE/ SYMPTOMS: The incision and pocket are painfree (0/10), well healed and without signs of erosion or infection. No arm swelling, syncope, pre-syncope or device related pocket stimulation. ? OTHER DIAGNOSTICS: RV pacing ?<1 %. ? PROGRAMMING CHANGES MADE TODAY: No changes made today ? ? Repreat check 06-27-18: UNDERLYING RHYTHM: SR with runs of 1:1 SVT at 110-120 bpm. ? BATTERY STATUS: Normal and shows no significant depletion. ? COUNTERS SINCE 12/2017: ? ATRIAL ARRHYTHMIAS: There have been 0 triggered episodes of atrial high rates. Anticoagulants listed: Eliquis. ? VENTRICULAR ARRHYTHMIAS: There have been a few nsVT ventricular detections since the last evaluation. ? LEAD MEASUREMENTS: Capture and sensing are appropriate. The pacing outputs maintain safety margin. Review of the lead impedance trends are normal. ? IMPLANT SITE/ SYMPTOMS: The incision and pocket are pain-free (0/10), well healed and without signs of erosion or infection. No arm swelling, syncope, pre-syncope or device related pocket stimulation. ? OTHER DIAGNOSTICS: V pacing <1%. ? PROGRAMMING CHANGES MADE TODAY: Increased the PVARP due to recorded PMTs. ? FOLLOW UP: Alerted Dr. Rick re: SVTs, he increased the digoxin. PROBLEM LIST: ? Cardiomyopathy - post viral ? HTN ? NSVT - DDD-ICD 2014 at an OSH ? CHF - systolic ? Silicosis ? PAF ? CHADS VASc - CHF / HTN / Age - 1 - on Eliquis ? EKG 12-16-2017 - NSR - QRS IVCD - 112 msec ? PETE - on CPAP ? TTE 2016: ? - The left ventricle is moderately dilated. There is mild concentric left ventricular hypertrophy. Left ventricular systolic function is moderately decreased. EF = 35 ? 5% (visual est.) Baseline left ventricular diastolic function ?is consistent with abnormal relaxation (stage 1). - The right ventricle is normal in size. Right ventricular systolic function is normal. - The left atrial cavity is mildly dilated. - The right atrial cavity is dilated. - There are no significant valvular abnormalities. - Mild MV thickening with trivial MR - 1+ TR - Mild AV sclerosis with 1+ AI - Estimated right ventricular systolic pressure is 51 mmHg consistent with moderate pulmonary hypertension. Estimated right atrial pressure is 5 mmHg. - Mild aortic root dilatation - Exam was compared with the prior echocardiographic exam performed on 05/29/2015. LVEF is probably the same. Prior images were off axis. The RVSP is higher. Aortic root is no larger after remeasuring. ? ? ? Exercise stress : 1. THE TEST WAS TERMINATED DUE TO GENERAL FATIGUE. ? 2. ADEQUATE HEART RATE RESPONSE OF ?86% ?PREDICTED MAXIMAL HEART RATE, ABNORMAL HEART RATE RECOVERY @ 1 MINUTE POST-EXERCISE. ?INCREASED RISK, ABNORMAL CHRONOTROPIC RESPONSE INDEX (</= 0.62 ON BETA-KADE) INCREASED RISK. ? 3. FUNCTIONAL CAPACITY IS ESTIMATED AT ?3 METS, STAGE ?2 ?MANUAL PROTOCOL. MAXIMAL RATE PRESSURE PRODUCT IS ?01903, ?POOR FUNCTIONAL CAPACITY FOR AGE AND GENDER. ?HIGH RISK. ? 4. RESTING HYPERTENSION. ? 5. NONDIAGNOSTIC ST SEGMENTS DUE TO ABNORMAL RESTING ECG. ? 7. ANGINA WAS NOT PROVOKED BY STRESS. ? 8. FREQUENT VENTRICULAR ECTOPY AT REST REMAINED UNCHANGED DURING STRESS, MULTIFOCAL PVC'S DURING THE TEST, PAC'S DURING THE TEST. ? 9. IN COMPARISON TO LAST TEST, GREATER ABNORMALITY DUE TO WORK CAPACITY. CONCLUSION: ? ABNORMAL DUE TO: POOR FUNCTIONAL CAPACITY. ADDITIONAL COMMENTS: ? NON-DIAGNOSTIC EXERCISE STRESS ECG AT 86% PMHR AND 2.5 METS DUE TO ABNORMAL RESTING ECG. ? CLINICALLY NEGATIVE FOR ISCHEMIA. OXYGEN SATURATION 93% ON 3 L/MIN AT REST AND 90-91% ON 4 L/MIN DURING LOW LEVEL EXERCISE. ? NOTE VERY POOR EXERCISE CAPACITY AND CHRONOTROPIC RESPONSE.. ? IMPRESSION: ? 67 y/o with a NICM, EF 35%, s/p DDD-ICD at an OSH and PAF on Xarelto. ? He presented to establish longitudinal care for his ICD - ? He is SOB with exertion. ? He continues to smoke. ? He has previously completed pulmonary rehab x2. Unable to complete cardiac rehab. ? Low burden of AF on device check - 1%. In AF at time of initial encounter - not acutely aware. Rate controlled. On Coreg 25 mg BID. ? On Xarelto - tolerating well without bleeding. ? Discussed remotes - deferred - wants to continue q6 month checks. I last him 06-27-18 when he was here for a device check - noted to be having frequent runs of SVT. AAD options limited based on his co- morbidities. His Dig was restarted. EKG today - multifocal PACs without SVT runs. His SVT remains asymptomatic. Will defer initiating dedicated AAD therapy. Was hospitalized in June in [place] for ADSHF. At that time weight 170 lbs. Currently 153. Euvolemic on PE - only trace edema noted on PE. BMP 8 with hypernatremia and hyperkalemia - diuretic regiment adjusted. Repeat 8 WNL. ? ? PLAN: ? 1. Follow burden of AF / PSVT - if burden worsens and this correlated to clinical decompensation - may benefit from a switch to a rhythm control strategy - options are going to be very limited in the setting of his impaired LV function and severe COPD - likely limited to Tikosyn. QTc 443 today. renal function normal. ? 2. Continue Eliquis ? 3. 6 month follow up with device check ? ? ? This note was created with electronic dictation and errors in syntax and meaning may have occurred. ? ? Tony Rick MD Pager: [phone] Office: [phone] ? I personally examined the patient and repeated the shabazz components of the exam and cardiac history, past medical and surgical history, social and family history. The assessment and plan were formulated and discussed with the patient and family. I spent over 25 minutes (face time) and greater than 50% of this time was spent counseling and/or coordinating the care of the patient with regard the diagnosis and medical regimen ? ? Referring Physician: ? Ishmael Wayne MD [address] [place] [address] [place] [address] ? Jarett Finn MD [address] [facility] [address] ? Referring Provider: TONY RICK [[id number]] Allergies As of Date: 08/01/2018 Noted Allergy Reaction ASA (ASPIRIN) 07/19/2017 8 - GI Upset ASA (SALICYLATES) 01/29/2006 8 - GI Upset Date Reviewed: 08/01/2018 Reviewed by: Sophie Teague Ma - Fully Assessed Reason for Visit: CARD Follow Up 6 Month [1231] Primary Visit Diagnosis:Paroxysmal atrial fibrillation (HCC) [I48.0] Order(s):ECG COMPLETE W INTERPRETATION [ECG01] Order #: [id number] FUTURE PACER OR ICD CHECK [1021526] Order #: [id number]: 1 FUTURE Prescriptions as of 08/01/2018 Sig: DIGOXIN 250 MCG TABLET Take 0.5 tablets by mouth onc* FUROSEMIDE 40 MG TABLET Take 1 tablet by mouth twice * SPIRONOLACTONE 25 MG TABLET Take 1 tablet by mouth once d* LISINOPRIL 20 MG TABLET Take 0.5 tablets by mouth onc* HYDRALAZINE 50 MG TABLET Take 0.5 tablets by mouth thr* NYSTATIN 100,000 UNIT/ML ORAL* Take 5 mL by mouth three time* CARVEDILOL 25 MG TABLET TAKE 1 TABLET BY MOUTH TWICE * ELIQUIS 5 MG TABLET TAKE 1 TABLET BY MOUTH TWICE * NITROFURANTOIN MONOHYDRATE AND * Take 1 capsule by mouth once * FINASTERIDE 5 MG TABLET Take 1 tablet by mouth once d* MEMANTINE 28 MG CAPSULE SPRIN* Take 1 capsule by mouth once * ISOSORBIDE MONONITRATE ER 30 * TAKE 1 TABLET BY MOUTH EVERY * BIPAP LEVALBUTEROL 0.63 MG/3 ML BIBIANA* Use 3 mL via nebulizer every * NITROGLYCERIN 0.4 MG SUBLINGU* Dissolve 1 tablet under the t* PREDNISONE 10 MG TABLET Take 10 mg by mouth once asad* COMPOUNDED PRESCRIPTION [facility] for ho* COMPOUNDED PRESCRIPTION Oxygen 3 liters CYANOCOBALAMIN (VIT B-12) 1,0* Dissolve 1 tablet under the t* PREDNISONE 20 MG TABLET Take 2 tablets by mouth once * Patient not taking: Reported on 08/01/2018 FERROUS SULFATE 325 MG (65 MG* Take 1 tablet by mouth daily * Patient not taking: Reported on 08/01/2018 Problem List As Of Date 08/01/2018 Noted Resolved Hypertension [I10] INVALID FOR* Lumbar disc disease [M51.9] INVALID FOR* Cervical disc disease [M50.90] INVALID FOR* COPD (chronic obstructive pulmonary disease) [J*INVALID FOR* BPH (benign prostatic hyperplasia) [N40.0] INVALID FOR* Urethral stricture [N35.9] INVALID FOR* Difficulty voiding [R39.198] INVALID FOR* Frequency of urination [R35.0] INVALID FOR* Urinary retention [R33.9] INVALID FOR* Anemia [D64.9] INVALID FOR* Tobacco abuse [Z72.0] INVALID FOR* Nonischemic cardiomyopathy (HCC) [I42.8] INVALID FOR* Atrial fibrillation with rapid ventricular resp*INVALID FOR* AICD (automatic cardioverter/defibrillator) pre*INVALID FOR* Spontaneous pneumothorax [J93.83] INVALID FOR* Swallowing difficulty [R13.10] INVALID FOR* More... PETE treated with BiPAP [G47.33] INVALID FOR* More... Disposition: Return in 6 months (on 01/29/2019). Follow-up and Disposition History Recorded Encounter Status:Closed by TONY RICK MD on 08/01/18 PROGRESS Observed: 07/31/2018 Status: COMPLETED Source: [place] 1:03 PM [facility] REPOSITORY HNO ID: [id number] Author: Tony Rick MD Service: (none) Author Type: Physician Type: Progress Notes Filed: 08/01/2018 11:48 AM Note Text: EP STAFF NOTE: ? Please note: This note has been produced using speech recognition software and may contain errors related to that system including grammar, punctuation, spelling, gender and words and phrases that may be inappropriate ? ?ekg TODAY 08-01-18 - NSR with frequent multifocal PACs, IVCD ? PE: Vitals: BP 96/60 Pulse 100 Wt 69.4 kg (153 lb) SpO2 100% BMI 21.34 kg/m? General: On home O2. In no acute distress. Neck: no carotid bruits Lungs: diffuse wheezing bilaterally. Heart: IRIR, No M/G/R Extremities: trace peripheral edema bilaterally. ? ? ? DEVICE CHECK: ? UNDERLYING RHYTHM: SR ? BATTERY STATUS: Normal and shows no significant depletion. COUNTERS SINCE 04/26/17 ? ATRIAL ARRHYTHMIAS: AF burden <1%. ?On eliquis ? VENTRICULAR ARRHYTHMIAS: There have been no ventricular detections since the last evaluation. ? LEAD MEASUREMENTS: Capture and sensing are appropriate. The pacing outputs maintain safety margin. Review of the lead impedance trends are normal. ? IMPLANT SITE/ SYMPTOMS: The incision and pocket are painfree (0/10), well healed and without signs of erosion or infection. No arm swelling, syncope, pre-syncope or device related pocket stimulation. ? OTHER DIAGNOSTICS: RV pacing ?<1 %. ? PROGRAMMING CHANGES MADE TODAY: No changes made today ? ? Repreat check 06-27-18: UNDERLYING RHYTHM: SR with runs of 1:1 SVT at 110-120 bpm. ? BATTERY STATUS: Normal and shows no significant depletion. ? COUNTERS SINCE 12/2017: ? ATRIAL ARRHYTHMIAS: There have been 0 triggered episodes of atrial high rates. Anticoagulants listed: Eliquis. ? VENTRICULAR ARRHYTHMIAS: There have been a few nsVT ventricular detections since the last evaluation. ? LEAD MEASUREMENTS: Capture and sensing are appropriate. The pacing outputs maintain safety margin. Review of the lead impedance trends are normal. ? IMPLANT SITE/ SYMPTOMS: The incision and pocket are pain-free (0/10), well healed and without signs of erosion or infection. No arm swelling, syncope, pre-syncope or device related pocket stimulation. ? OTHER DIAGNOSTICS: V pacing <1%. ? PROGRAMMING CHANGES MADE TODAY: Increased the PVARP due to recorded PMTs. ? FOLLOW UP: Alerted Dr. Rick re: SVTs, he increased the digoxin. PROBLEM LIST: ? Cardiomyopathy - post viral ? HTN ? NSVT - DDD-ICD 2014 at an OSH ? CHF - systolic ? Silicosis ? PAF ? CHADS VASc - CHF / HTN / Age - 1 - on Eliquis ? EKG 12-16-2017 - NSR - QRS IVCD - 112 msec ? PETE - on CPAP ? TTE 2016: ? - The left ventricle is moderately dilated. There is mild concentric left ventricular hypertrophy. Left ventricular systolic function is moderately decreased. EF = 35 ? 5% (visual est.) Baseline left ventricular diastolic function ?is consistent with abnormal relaxation (stage 1). - The right ventricle is normal in size. Right ventricular systolic function is normal. - The left atrial cavity is mildly dilated. - The right atrial cavity is dilated. - There are no significant valvular abnormalities. - Mild MV thickening with trivial MR - 1+ TR - Mild AV sclerosis with 1+ AI - Estimated right ventricular systolic pressure is 51 mmHg consistent with moderate pulmonary hypertension. Estimated right atrial pressure is 5 mmHg. - Mild aortic root dilatation - Exam was compared with the prior echocardiographic exam performed on 05/29/2015. LVEF is probably the same. Prior images were off axis. The RVSP is higher. Aortic root is no larger after remeasuring. ? ? ? Exercise stress : 1. THE TEST WAS TERMINATED DUE TO GENERAL FATIGUE. ? 2. ADEQUATE HEART RATE RESPONSE OF ?86% ?PREDICTED MAXIMAL HEART RATE, ABNORMAL HEART RATE RECOVERY @ 1 MINUTE POST-EXERCISE. ?INCREASED RISK, ABNORMAL CHRONOTROPIC RESPONSE INDEX (</= 0.62 ON BETA-KADE) INCREASED RISK. ? 3. FUNCTIONAL CAPACITY IS ESTIMATED AT ?3 METS, STAGE ?2 ?MANUAL PROTOCOL. MAXIMAL RATE PRESSURE PRODUCT IS ?86957, ?POOR FUNCTIONAL CAPACITY FOR AGE AND GENDER. ?HIGH RISK. ? 4. RESTING HYPERTENSION. ? 5. NONDIAGNOSTIC ST SEGMENTS DUE TO ABNORMAL RESTING ECG. ? 7. ANGINA WAS NOT PROVOKED BY STRESS. ? 8. FREQUENT VENTRICULAR ECTOPY AT REST REMAINED UNCHANGED DURING STRESS, MULTIFOCAL PVC'S DURING THE TEST, PAC'S DURING THE TEST. ? 9. IN COMPARISON TO LAST TEST, GREATER ABNORMALITY DUE TO WORK CAPACITY. CONCLUSION: ? ABNORMAL DUE TO: POOR FUNCTIONAL CAPACITY. ADDITIONAL COMMENTS: ? NON-DIAGNOSTIC EXERCISE STRESS ECG AT 86% PMHR AND 2.5 METS DUE TO ABNORMAL RESTING ECG. ? CLINICALLY NEGATIVE FOR ISCHEMIA. OXYGEN SATURATION 93% ON 3 L/MIN AT REST AND 90-91% ON 4 L/MIN DURING LOW LEVEL EXERCISE. ? NOTE VERY POOR EXERCISE CAPACITY AND CHRONOTROPIC RESPONSE.. ? IMPRESSION: ? 67 y/o with a NICM, EF 35%, s/p DDD- ICD at an OSH and PAF on Xarelto. ? He presented to establish longitudinal care for his ICD - ? He is SOB with exertion. ? He continues to smoke. ? He has previously completed pulmonary rehab x2. Unable to complete cardiac rehab. ? Low burden of AF on device check 2017 - 1%. In AF at time of initial encounter - not acutely aware. Rate controlled. On Coreg 25 mg BID. ? On Xarelto - tolerating well without bleeding. ? Discussed remotes - deferred - wants to continue q6 month checks. I last him 06-27-18 when he was here for a device check - noted to be having frequent runs of SVT. AAD options limited based on his co-morbidities. His Dig was restarted. EKG today - multifocal PACs without SVT runs. His SVT remains asymptomatic. Will defer initiating dedicated AAD therapy. Was hospitalized in June in [place] for ADSHF. At that time weight 170 lbs. Currently 153. Euvolemic on PE - only trace edema noted on PE. BMP 07-08 with hypernatremia and hyperkalemia - diuretic regiment adjusted. Repeat 07-19 WNL. ? ? PLAN: ? 1. Follow burden of AF / PSVT - if burden worsens and this correlated to clinical decompensation - may benefit from a switch to a rhythm control strategy - options are going to be very limited in the setting of his impaired LV function and severe COPD - likely limited to Tikosyn. QTc 443 today. renal function normal. ? 2. Continue Eliquis ? 3. 6 month follow up with device check ? ? ? This note was created with electronic dictation and errors in syntax and meaning may have occurred. ? ? Tony Rick MD Pager: [phone] Office: [phone] ? I personally examined the patient and repeated the shabazz components of the exam and cardiac history, past medical and surgical history, social and family history. The assessment and plan were formulated and discussed with the patient and family. I spent over 25 minutes (face time) and greater than 50% of this time was spent counseling and/or coordinating the care of the patient with regard the diagnosis and medical regimen ? ? Referring Physician: ? Ishmael Wayne MD [address] [place] [address] ? Jarett Finn MD [address] [facility] [address] ? PT D/C SUMMARY (1) Observed: 07/28/2018 Status: F Source: [place] 1:29 PM [facility] REPOSITORY [facility] [facility] [place] [address] Fax REHABILITATION SERVICES DISCHARGE SUMMARY MR#: [id number] Acct: [id number] Name: JIMMY BUTLER Rep #: [id number] : 1950 68 From: [place] PT, Cert. T, OCS Referring Dr.: Lamar Weiss MD Status: REG RCR Insurance: MEDICARE PART A B AARP HP - PT D/C Summary It has been my pleasure to treat JIMMY BUTLER under orders from Lamar Weiss, for the diagnosis of BACK PAIN for a total of 8 visit(s). Discharge Date: 07/27/18 Please see the following information for a summary of their discharge status. - Subjective Subjective: Seen Dr weston hernandez md thoracic region. Patient feels stronger ,but spouse stated can do ex's on own - Pain Bilateral Back Pain Intensity (Out of 10): 5 - Overall Improvement % Improvement: 40 - Objective Objective/Function: POSTURE: mild foward posture trunk flexed ,hip knee flexed. GAIT: ambulates with slow cadnece mild foeard posture with O2. MMT: quads/hams 4-/5 ,ankle 2/3 right,hip flexion 3+/5 right left 4-/5. TRANSFERS :sit stand mod independant. LUMBAR ROM: mod loss flexion extemsion sever loss - Goals Goal 1:: Independant with HEP Goal Progress: Goal Met Goal 2:: Patient increase strength BLE 1/2 grade to improve function. Goal Progress: Progressing Goal 3:: Patient decrease lumbar pain by 40% or greater to improve function. Goal Progress: Progressing Goal 4:: Patient to ambulate 20-30 feet with less pain with 02 Goal Progress: Progressing Goal 5:: Patient improve functional endurance for activity to fair- Goal Progress: Progressing Goal 6:: Patient be more active at home to improve QOL Goal Progress: Progressing - Plan Plan: D/C TO HEP - D/C Information Discharge Comments: HEP If there are questions or concerns regarding this patient's physical therapy, please feel free to call me at [phone]. Thank you for the referral of this patient. Sincerely, [place], PT, <Electronically signed by [place] PT, Cert. MDT, OCS> 07/28/18 1325 CC: Lamar Weiss MD; Sally Allison MD JLA Signed [place] BMP Collected: 07/19/2018 Status: F Source: [place] 2:11 PM [facility] REPOSITORY TYPE CODE TESTS RESULT OUT OF REFERENCE UNITS RANGE LAB NAWB 135-146 mmol/L Sodium, Whole 139 Bld LAB K1WB 3.5-5.0 mmol/L Potassium,Who 4.5 le Bld LAB CLWB 98-110 mmol/L Low Chloride, 93 Whole Bld LAB ICAWB 1.08-1.30 mmol/L Ionized 1.14 Calcium, WB Result Comment: Please note: This value represents ionized calcium not total calcium. LAB CO2WB 23-32 mmol/L High TCO2, Whole Blood 39 LAB GLUWB 65-100 mg/dL Glucose, Whole Bld 79 LAB BUNWB 10-25 mg/dL High BUN, Whole Blood 34 LAB BCRET 0.70-1.40 mg/dL Creatinine,Wh ole Bld 1.30 LAB AGAPWB 0-15 mmol/L Anion Gap, 7 Whole Bld LAB GFRAA eGFR- Amer. >60 LAB GFRNAA . eGFR-All Other Races 55 Result Comment: eGFR (Estimated GFR) Units of measure: mL/min/1.73 meters squared eGFR is derived from the reexpressed MDRD Study equation using the following parameters: serum creatinine, age, gender and race. The creatinine assay has been calibrated to be traceable to IDMS. An eGFR <60 mL/min/1.73m2 for >3 months is consistent with chronic kidney disease. Refer to KDOQI guidelines for clinical interpretation. In patients with unstable renal function, e.g. those with acute kidney injury, the eGFR may not accurately reflect actual GFR. PROGRESS Observed: 07/09/2018 Status: COMPLETED Source: [place] 10:18 AM [facility] REPOSITORY O ID: [id number] Author: Jarett Finn Service: (none) Author Type: Physician Type: Progress Notes Filed: 07/09/2018 10:24 AM Note Text: PERTINENT CARDIAC HISTORY Cardiomyopathy - post viral HTN NSVT - ICD 2014 CHF - systolic Silicosis PAF AAA - 4.4 cm ADHERENCE TO GUIDELINES ANDREA-I or ARB for HF with prior LVEF<40 (NQF 0081) - met ASA or Plavix for ASHD (NQF 0067) - N/A Beta kade for ASHD with prior [place] or prior LVEF<40 (NQF 0070) - N/A Beta kade for HF with prior LVEF<40 (NQF 0083) - met ANDREA-I or ARB for ASHD with DM or prior LVEF<40 (NQF 0066) - N/A Statin therapy for ASHD or FHL or DM - N/A BMI documented and plan if >25 (NQF 0421) - lifestyle recommendation form Tobacco use screening and referral (NQF 0028) - lifestyle recommendation form Recommendation for whole food, plant based diet - lifestyle recommendation form CLINICAL IMPRESSION/PLAN: Jimmy Butler has end-stage lung disease and heart disease. He is having intermittent episodes of SVT but I am leery of increasing his digoxin as his renal function is labile and his diet is not good. He was advised to return to his prior dose of digoxin. He is unaware of his SVT and more aggressive treatment would likely not improve his quality of life. We will continue to monitor this at pacemaker checks. Basic profile and magnesium level checked today and diuretics adjusted appropriately. I will see him as routinely scheduled. Written and verbal health teaching given to patient, patient verbalizes understanding and agrees with treatment plan. DIAGNOSIS FOR VISIT: CHF PAF HISTORY OF PRESENT ILLNESS Jimmy Butler returns for follow-up of his heart failure and PAF. He was recently hospitalized with decompensated heart failure. Medications were adjusted. He was noted to have episodic SVT. Rates were up to 150. His digoxin was recently increased because of a finding of SVT on his pacemaker check. He has not been eating. His edema has decreased significantly since discharge. He is currently on an increased dose of Lasix and Aldactone. He's had no chest tightness. He is short of breath all the time. Edema had worsened last weekend, but has improved. He's had no syncope, TIAs, amaurosis or claudication. He is unaware of his heart rhythm. ALLERGIES: ALLERGIES Allergen Reactions - Asa [Aspirin] GI Upset - Asa [Salicylates] GI Upset CURRENT OUTPATIENT MEDICATIONS: digoxin (LANOXIN) 250 mcg tablet Take 0.5 tablets by mouth once daily. furosemide (LASIX) 40 mg tablet Take 1 tablet by mouth twice daily. predniSONE (DELTASONE) 20 mg tablet Take 2 tablets by mouth once daily. lisinopril (ZESTRIL, PRINIVIL) 20 mg tablet Take 0.5 tablets by mouth once daily. hydrALAZINE (APRESOLINE) 50 mg tablet Take 0.5 tablets by mouth three times daily. ferrous sulfate 325 mg (65 mg iron) tablet Take 1 tablet by mouth daily with breakfast. nystatin (MYCOSTATIN) 100,000 unit/mL susp Take 5 mL by mouth three times daily. carvedilol (COREG) 25 mg tablet TAKE 1 TABLET BY MOUTH TWICE DAILY WITH MEALS ELIQUIS 5 mg tab(s) TAKE 1 TABLET BY MOUTH TWICE DAILY nitrofurantoin monohydrate and macrocrystal (MACROBID) 100 mg capsule Take 1 capsule by mouth once daily. finasteride (PROSCAR) 5 mg tablet Take 1 tablet by mouth once daily. memantine XR (NAMENDA XR) 28 mg CSpX Take 1 capsule by mouth once daily. isosorbide mononitrate ER (IMDUR) 30 mg 24 hr tablet TAKE 1 TABLET BY MOUTH EVERY DAY BIPAP levalbuterol (XOPENEX) 0.63 mg/3 mL nebulizer solution Use 3 mL via nebulizer every 6 hours as needed for Wheezing/Shortness of Breath (for wheezing). Dx: J44.9 nitroglycerin sublingual (NITROQUICK) 0.4 mg SL tablet Dissolve 1 tablet under the tongue as needed. FOR CHEST PAIN. IF NO RELIEF CALL 911 predniSONE (DELTASONE) 10 mg tablet Take 10 mg by mouth once daily. COMPOUNDED PRESCRIPTION [facility] for home BP monitoring COMPOUNDED PRESCRIPTION Oxygen 3 liters Cyanocobalamin (VITAMIN B-12) 1,000 mcg subl Dissolve 1 tablet under the tongue once daily. spironolactone (ALDACTONE) 25 mg tablet Take 1 tablet by mouth once daily. PHYSICAL EXAMINATION: VITAL SIGNS: BP 90/59 Pulse 82 Ht 5' 11 (1.80m) Wt 151 lb 9.6 oz (68.8kg) BMI 21.15 kg/(m2). Chest: Breath sounds are markedly diminished. There are scattered rhonchi. Marked expiratory prolongation. There are end inspiratory rales Trachea is midline. Air entry is equal. Cardiac: Regular rhythm. S1 and S2 are normal. PMI is displaced and sustained. There is a soft murmur of tricuspid insufficiency. Carotids are brisk without bruits. JVP is less than 10 cm. Abdomen: Soft and nontender. There are no pulsatile masses or bruits. No liver enlargement. Bowel sounds are active. Extremities: 1 plus edema. Pulses are diminished but symmetrical. EKG done at the hospital showed sinus rhythm with runs of SVT with aberrancy. At the time of discharge creatinine was 1.3. There was no evidence of acute coronary syndrome. Electronically Signed: Jarett Finn MD July 09, 2018 10:18 AM CC: Sally Allison MD CNOV Observed: 07/08/2018 Status: COMPLETED Source: [place] 8:30 AM [facility] REPOSITORY Office Visit (CAWSTR) CARRIEJIMMY ([id number]) 1950 M Date Time Provider Department 07/08/18 8:30 AM JARETT FINN During your visit today, we recorded the following information about you: Pulse Blood pressure Weight Height 82/minute 90/59 68.8 kg 1.803 m Jarett Finn MD 07/09/2018 10:24 AM Signed PERTINENT CARDIAC HISTORY Cardiomyopathy - post viral HTN NSVT - ICD 2014 CHF - systolic Silicosis PAF AAA - 4.4 cm ADHERENCE TO GUIDELINES ANDREA-I or ARB for HF with prior LVEF<40 (NQF 0081) - met ASA or Plavix for ASHD (NQF 0067) - N/A Beta kade for ASHD with prior [place] or prior LVEF<40 (NQF 0070) - N/A Beta kade for HF with prior LVEF<40 (NQF 0083) - met ANDREA-I or ARB for ASHD with DM or prior LVEF<40 (NQF 0066) - N/A Statin therapy for ASHD or FHL or DM - N/A BMI documented and plan if >25 (NQF 0421) - lifestyle recommendation form Tobacco use screening and referral (NQF 0028) - lifestyle recommendation form Recommendation for whole food, plant based diet - lifestyle recommendation form CLINICAL IMPRESSION/PLAN: Jimmy Butler has end-stage lung disease and heart disease. He is having intermittent episodes of SVT but I am leery of increasing his digoxin as his renal function is labile and his diet is not good. He was advised to return to his prior dose of digoxin. He is unaware of his SVT and more aggressive treatment would likely not improve his quality of life. We will continue to monitor this at pacemaker checks. Basic profile and magnesium level checked today and diuretics adjusted appropriately. I will see him as routinely scheduled. Written and verbal health teaching given to patient, patient verbalizes understanding and agrees with treatment plan. DIAGNOSIS FOR VISIT: CHF PAF HISTORY OF PRESENT ILLNESS Jimmy Butler returns for follow-up of his heart failure and PAF. He was recently hospitalized with decompensated heart failure. Medications were adjusted. He was noted to have episodic SVT. Rates were up to 150. His digoxin was recently increased because of a finding of SVT on his pacemaker check. He has not been eating. His edema has decreased significantly since discharge. He is currently on an increased dose of Lasix and Aldactone. He's had no chest tightness. He is short of breath all the time. Edema had worsened last weekend, but has improved. He's had no syncope, TIAs, amaurosis or claudication. He is unaware of his heart rhythm. ALLERGIES: ALLERGIES Allergen Reactions - Asa [Aspirin] GI Upset - Asa [Salicylates] GI Upset CURRENT OUTPATIENT MEDICATIONS: digoxin (LANOXIN) 250 mcg tablet Take 0.5 tablets by mouth once daily. furosemide (LASIX) 40 mg tablet Take 1 tablet by mouth twice daily. predniSONE (DELTASONE) 20 mg tablet Take 2 tablets by mouth once daily. lisinopril (ZESTRIL, PRINIVIL) 20 mg tablet Take 0.5 tablets by mouth once daily. hydrALAZINE (APRESOLINE) 50 mg tablet Take 0.5 tablets by mouth three times daily. ferrous sulfate 325 mg (65 mg iron) tablet Take 1 tablet by mouth daily with breakfast. nystatin (MYCOSTATIN) 100,000 unit/mL susp Take 5 mL by mouth three times daily. carvedilol (COREG) 25 mg tablet TAKE 1 TABLET BY MOUTH TWICE DAILY WITH MEALS ELIQUIS 5 mg tab(s) TAKE 1 TABLET BY MOUTH TWICE DAILY nitrofurantoin monohydrate and macrocrystal (MACROBID) 100 mg capsule Take 1 capsule by mouth once daily. finasteride (PROSCAR) 5 mg tablet Take 1 tablet by mouth once daily. memantine XR (NAMENDA XR) 28 mg CSpX Take 1 capsule by mouth once daily. isosorbide mononitrate ER (IMDUR) 30 mg 24 hr tablet TAKE 1 TABLET BY MOUTH EVERY DAY BIPAP levalbuterol (XOPENEX) 0.63 mg/3 mL nebulizer solution Use 3 mL via nebulizer every 6 hours as needed for Wheezing/Shortness of Breath (for wheezing). Dx: J44.9 nitroglycerin sublingual (NITROQUICK) 0.4 mg SL tablet Dissolve 1 tablet under the tongue as needed. FOR CHEST PAIN. IF NO RELIEF CALL 911 predniSONE (DELTASONE) 10 mg tablet Take 10 mg by mouth once daily. COMPOUNDED PRESCRIPTION [facility] for home BP monitoring COMPOUNDED PRESCRIPTION Oxygen 3 liters Cyanocobalamin (VITAMIN B-12) 1,000 mcg subl Dissolve 1 tablet under the tongue once daily. spironolactone (ALDACTONE) 25 mg tablet Take 1 tablet by mouth once daily. PHYSICAL EXAMINATION: VITAL SIGNS: BP 90/59 Pulse 82 Ht 5' 11 (1.80m) Wt 151 lb 9.6 oz (68.8kg) BMI 21.15 kg/(m2). Chest: Breath sounds are markedly diminished. There are scattered rhonchi. Marked expiratory prolongation. There are end inspiratory rales Trachea is midline. Air entry is equal. Cardiac: Regular rhythm. S1 and S2 are normal. PMI is displaced and sustained. There is a soft murmur of tricuspid insufficiency. Carotids are brisk without bruits. JVP is less than 10 cm. Abdomen: Soft and nontender. There are no pulsatile masses or bruits. No liver enlargement. Bowel sounds are active. Extremities: 1 plus edema. Pulses are diminished but symmetrical. EKG done at the hospital showed sinus rhythm with runs of SVT with aberrancy. At the time of discharge creatinine was 1.3. There was no evidence of acute coronary syndrome. Electronically Signed: Jarett Finn MD July 09, 2018 10:18 AM CC: Sally Allison MD Referring Provider: JARETT FINN [[id number]] Allergies As of Date: 07/08/2018 Noted Allergy Reaction ASA (ASPIRIN) 07/19/2017 8 - GI Upset ASA (SALICYLATES) 01/29/2006 8 - GI Upset Date Reviewed: 07/08/2018 Reviewed by: Nelly Carson MA - Fully Assessed Reason for Visit: Established Patient [175] Primary Visit Diagnosis:Chronic systolic congestive heart failure (HCC) [I50.22] Other Visit Diagnosis:Essential hypertension [I10] Order(s):digoxin (LANOXIN) 250 mcg tabletTake 0.5 tablets by mouth once daily.Disp: 90 tabletRfl: 3 [facility] I[facility] [SQWSTBMP] Order #: [id number] FUTURE furosemide (LASIX) 40 mg tabletTake 1 tablet by mouth twice daily.Disp: 60 tabletRfl: 11 [facility] [SQPICBMP] Order #: [id number]. #:[id number] Prescriptions as of 07/08/2018 Sig: DIGOXIN 250 MCG TABLET Take 0.5 tablets by mouth onc* FUROSEMIDE 40 MG TABLET Take 1 tablet by mouth twice * X SPIRONOLACTONE 25 MG TABLET Take 1 tablet by mouth twice * PREDNISONE 20 MG TABLET Take 2 tablets by mouth once * LISINOPRIL 20 MG TABLET Take 0.5 tablets by mouth onc* HYDRALAZINE 50 MG TABLET Take 0.5 tablets by mouth thr* FERROUS SULFATE 325 MG (65 MG* Take 1 tablet by mouth daily * NYSTATIN 100,000 UNIT/ML ORAL* Take 5 mL by mouth three time* CARVEDILOL 25 MG TABLET TAKE 1 TABLET BY MOUTH TWICE * ELIQUIS 5 MG TABLET TAKE 1 TABLET BY MOUTH TWICE * NITROFURANTOIN MONOHYDRATE AND * Take 1 capsule by mouth once * FINASTERIDE 5 MG TABLET Take 1 tablet by mouth once d* MEMANTINE 28 MG CAPSULE SPRIN* Take 1 capsule by mouth once * X POTASSIUM CHLORIDE ER 10 MEQ * Take 1 tablet by mouth daily * ISOSORBIDE MONONITRATE ER 30 * TAKE 1 TABLET BY MOUTH EVERY * BIPAP LEVALBUTEROL 0.63 MG/3 ML BIBIANA* Use 3 mL via nebulizer every * NITROGLYCERIN 0.4 MG SUBLINGU* Dissolve 1 tablet under the t* PREDNISONE 10 MG TABLET Take 10 mg by mouth once asad* COMPOUNDED PRESCRIPTION [facility] for ho* COMPOUNDED PRESCRIPTION Oxygen 3 liters CYANOCOBALAMIN (VIT B-12) 1,0* Dissolve 1 tablet under the t* Problem List As Of Date 07/08/2018 Noted Resolved Hypertension [I10] INVALID FOR* Lumbar disc disease [M51.9] INVALID FOR* Cervical disc disease [M50.90] INVALID FOR* COPD (chronic obstructive pulmonary disease) [J*INVALID FOR* BPH (benign prostatic hyperplasia) [N40.0] INVALID FOR* Urethral stricture [N35.9] INVALID FOR* Difficulty voiding [R39.198] INVALID FOR* Frequency of urination [R35.0] INVALID FOR* Urinary retention [R33.9] INVALID FOR* Anemia [D64.9] INVALID FOR* Tobacco abuse [Z72.0] INVALID FOR* Nonischemic cardiomyopathy (HCC) [I42.8] INVALID FOR* Atrial fibrillation with rapid ventricular resp*INVALID FOR* AICD (automatic cardioverter/defibrillator) pre*INVALID FOR* Spontaneous pneumothorax [J93.83] INVALID FOR* Swallowing difficulty [R13.10] INVALID FOR* More... PETE treated with BiPAP [G47.33] INVALID FOR* More... Prescriptions ordered this encounter Disp Refills Start End FUROSEMIDE 20 MG TABLET 60 t* 3 07/08/2018 07/08/2018 Class: Med Update Route: ORAL Sig: Take 2 tablets by mouth twice daily. DIGOXIN 250 MCG TABLET 90 t* 3 07/08/2018 Class: Med Update Route: ORAL Sig: Take 0.5 tablets by mouth once daily. SPIRONOLACTONE 25 MG TABLET 60 t* 11 07/08/2018 07/08/2018 Route: ORAL Sig: Take 1 tablet by mouth twice daily. FUROSEMIDE 40 MG TABLET 60 t* 11 07/08/2018 Route: ORAL Sig: Take 1 tablet by mouth twice daily. Medications Discontinued During This Encounter furosemide (LASIX) 20 mg tablet 60 t* 3 04/11/2018 07/08/2018 Cmt: PLEASE SEND NEW RX FOR THIS RX WELL SO THE PT HAS 90 DAY SUPPLY. THANK YOU! Route: ORAL Sig: TAKE 1 TABLET BY MOUTH TWICE DAILY Disc: Reason for discontinue is not on file. digoxin (LANOXIN) 250 mcg tablet 90 t* 3 04/11/2018 07/08/2018 Cmt: MED SYNC PT...PT DOES NOT HAVE ENOUGH ON FILE TO FILL 90 DAY SUPPLIES. PLEASE CALL IN RXS FOR 04/12 FRONT EDGER. SORRY SHORT NOTICE, THEY JUST CALLED US BACK. THANK YOU!! Route: ORAL Sig: Take 1 tablet by mouth once daily. Disc: Reason for discontinue is not on file. spironolactone (ALDACTONE) 25 mg tab* 07/05/2018 07/08/2018 Class: Med Update Route: ORAL Sig: Take 1 tablet by mouth twice daily. Disc: Reason for discontinue is not on file. furosemide (LASIX) 20 mg tablet 60 t* 3 07/08/2018 07/08/2018 Class: Med Update Route: ORAL Sig: Take 2 tablets by mouth twice daily. Disc: Reason for discontinue is not on file. Follow-up and Disposition History Recorded Encounter Status:Closed by JARETT FINN MD on 07/09/18 [facility] Collected: 07/08/2018 Status: F Source: [place] 8:25 AM [facility] REPOS[facility] TYPE CODE TESTS RESULT OUT OF REFERENCE UNITS RANGE LAB NA 128-145 mmol/L Sodium High 148 LAB K 3.6-5.1 mmol/L High Potassium 5.2 LAB CL 98-108 mmol/L Low Chloride 95 LAB CO2 18-33 mmol/L CO2 High 39 LAB CRET 0.6-1.2 mg/dL Creatinine 1.20 LAB BUN 7-22 mg/dL BUN High 40 LAB GLU 73-118 mg/dL Glucose 85 LAB CA 8.0-10.3 mg/dL Calcium, Total 9.6 LAB MG 1.6-2.3 mg/dL High Magnesium 2.6 LAB AGAP 9-18 mmol/L Anion Gap 14 LAB GFRAA eGFR- >60 Amer. LAB GFRNAA . eGFR-All Other Races 60 Result Comment: eGFR (Estimated GFR) Units of measure: mL/min/1.73 meters squared eGFR is derived from the reexpressed MDRD Study equation using the following parameters: serum creatinine, age, gender and race. The creatinine assay has been calibrated to be traceable to IDMS. An eGFR <60 mL/min/1.73m2 for >3 months is consistent with chronic kidney disease. Refer to KDOQI guidelines for clinical interpretation. In patients with unstable renal function, e.g. those with acute kidney injury, the eGFR may not accurately reflect actual GFR. CNPN Observed: 07/05/2018 Status: COMPLETED Source: [place] 12:00 AM [facility] REPOSITORY Telephone (CAWSTR) JIMMY BUTLER ([id number]) 1950 M Date Time Provider Department 07/05/18 JARETT FINN During your visit today, we recorded the following information about you: Nicole Grace RN 07/05/2018 11:08 AM Signed Pt's family called stating pt was seen in ED on 07-01-18 for swollen feet. [facility] records printed and placed in box to review. Please advise when pt needs scheduled for apt Nicole Finn MD 07/05/2018 1:20 PM Signed Please find out if his symptoms have improved and how much Lasix he is taking. Have basic profile done in the next 2 days. I will see early next week. MD Nicole Tinoco RN 07/05/2018 1:27 PM Signed Elyssa mendes you please schedule pt early next week please Nicole Grace RN 07/05/2018 1:28 PM Signed Left message to call office. 07/05/2018 1:27 PM Nicole Carter PSR 07/05/2018 2:06 PM Signed Spoke with patients spouse, scheduled patient for 07-11-18 at 10:30 am. Spouse voiced concern about waiting til Wednesday. She stated that his feet were swollen very badly and he also complained about his back aching. Asked if we could get him in sooner. I told her that I would advise the nurses and Dr. Finn of her concerns. Jarett Finn MD 07/05/2018 2:46 PM Signed I can see him Wednesday morning. Please get stat BMP on the way to the office. Increase Aldactone to 25 milligrams twice daily. How much Lasix has he been taking the last few days?. MD Nicole Tinoco RN 07/05/2018 3:58 PM Signed Called AND talked to pt's . Pt was taking 80mg lasix in am AND 40mg pm on Wednesday, Wednesday AND Wednesday (3 day dose per ). Pt returned to 20mg lasix bid per Patient's notified of provider's instructions. Patient's verbalizes understanding. Nicole Carter PSR 07/05/2018 4:12 PM Signed Spoke with patients , scheduled patient for 07-08-18 at 8:30 am. She agreed to date and time Jarett Finn MD 07/05/2018 4:25 PM Signed Continue Lasix at 40 milligrams twice daily until we meet. MD Nicole Tinoco RN 07/06/2018 9:56 AM Signed Left message to call office. 07/06/2018 9:56 AM Nicole Grace RN 07/06/2018 12:04 PM Signed Pt's called notified of provider's instructions to take lasix 40mg twice daily until he sees pt on wednesday. Patient's verbalizes understanding. Nicole Grace RN Allergies As of Date: 07/05/2018 Noted Allergy Reaction ASA (ASPIRIN) 07/19/2017 8 - GI Upset ASA (SALICYLATES) 01/29/2006 8 - GI Upset Date Reviewed: 06/16/2018 Reviewed by: Leesa Jeffrey Ma - Fully Assessed Reason for Visit: Recheck [92] Primary Visit Diagnosis:Essential hypertension [I10] Order(s):BASIC METABOLIC PNL [SQBMP] Order #: [id number] FUTURE spironolactone (ALDACTONE) 25 mg tabletTake 1 tablet by mouth twice daily.Disp: Rfl: Prescriptions as of 07/05/2018 Sig: SPIRONOLACTONE 25 MG TABLET Take 1 tablet by mouth twice * PREDNISONE 20 MG TABLET Take 2 tablets by mouth once * LISINOPRIL 20 MG TABLET Take 0.5 tablets by mouth onc* HYDRALAZINE 50 MG TABLET Take 0.5 tablets by mouth thr* FERROUS SULFATE 325 MG (65 MG* Take 1 tablet by mouth daily * NYSTATIN 100,000 UNIT/ML ORAL* Take 5 mL by mouth three time* CARVEDILOL 25 MG TABLET TAKE 1 TABLET BY MOUTH TWICE * ELIQUIS 5 MG TABLET TAKE 1 TABLET BY MOUTH TWICE * NITROFURANTOIN MONOHYDRATE AND * Take 1 capsule by mouth once * X DIGOXIN 250 MCG TABLET Take 1 tablet by mouth once d* X FUROSEMIDE 20 MG TABLET TAKE 1 TABLET BY MOUTH TWICE * FINASTERIDE 5 MG TABLET Take 1 tablet by mouth once d* MEMANTINE 28 MG CAPSULE SPRIN* Take 1 capsule by mouth once * POTASSIUM CHLORIDE ER 10 MEQ * Take 1 tablet by mouth daily * ISOSORBIDE MONONITRATE ER 30 * TAKE 1 TABLET BY MOUTH EVERY * BIPAP LEVALBUTEROL 0.63 MG/3 ML BIBIANA* Use 3 mL via nebulizer every * NITROGLYCERIN 0.4 MG SUBLINGU* Dissolve 1 tablet under the t* PREDNISONE 10 MG TABLET Take 10 mg by mouth once asad* COMPOUNDED PRESCRIPTION [facility] for ho* COMPOUNDED PRESCRIPTION Oxygen 3 liters CYANOCOBALAMIN (VIT B-12) 1,0* Dissolve 1 tablet under the t* Problem List As Of Date 07/05/2018 Noted Resolved Hypertension [I10] INVALID FOR* Lumbar disc disease [M51.9] INVALID FOR* Cervical disc disease [M50.90] INVALID FOR* COPD (chronic obstructive pulmonary disease) [J*INVALID FOR* BPH (benign prostatic hyperplasia) [N40.0] INVALID FOR* Urethral stricture [N35.9] INVALID FOR* Difficulty voiding [R39.198] INVALID FOR* Frequency of urination [R35.0] INVALID FOR* Urinary retention [R33.9] INVALID FOR* Anemia [D64.9] INVALID FOR* Tobacco abuse [Z72.0] INVALID FOR* Nonischemic cardiomyopathy (HCC) [I42.8] INVALID FOR* Atrial fibrillation with rapid ventricular resp*INVALID FOR* AICD (automatic cardioverter/defibrillator) pre*INVALID FOR* Spontaneous pneumothorax [J93.83] INVALID FOR* Swallowing difficulty [R13.10] INVALID FOR* More... PETE treated with BiPAP [G47.33] INVALID FOR* More... Prescriptions ordered this encounter Disp Refills Start End SPIRONOLACTONE 25 MG TABLET 07/05/2018 Class: Med Update Route: ORAL Sig: Take 1 tablet by mouth twice daily. Medications Discontinued During This Encounter spironolactone (ALDACTONE) 25 mg tab* 90 t* 3 10/13/2017 07/05/2018 Cmt: Med-sync patient. If too soon, we will put new RX on hold for next cycle. Sig: Take 1 tablet by mouth once daily. Disc: Reason for discontinue is not on file. Encounter Status:Closed by NICOLE GRACE RN on 07/07/18 12 LEAD ELECTROCARDIOGRAM Observed: 07/04/2018 Status: F Source: [place] 1:44 PM [facility] REPOSITORY [facility] Cardiovascular Services [address] [place] [id number] 12 Lead EKG 07/01/18 1909 MR#: [id number] Acct: [id number] Name: JIMMY BUTLER Rep #: [id number] : 1950 68 From: Melvin Raymundo MD Attending Dr: Status: DEP ER Ordering Dr: Jenifer Grewal MD Date: 07/01/18 Location: ED Sex: M AA Admitted: Test Reason : ADEMA Blood Pressure : / mmHG Vent. Rate : 101 BPM Atrial Rate : 061 BPM P-R Int : 124 ms QRS Dur : 104 ms QT Int : 348 ms P-R-T Axes : 039 -54 112 degrees QTc Int : 451 ms Suspect unspecified pacemaker failure Normal sinus rhythm Premature atrial complexes Left axis deviation ST AND T wave abnormality, consider lateral ischemia Abnormal ECG Confirmed by MELVIN RAYMUNDO MD ([id number]), news copy editor MALIA INGRAM ([id number]) on 07/04/2018 1:43:55 PM Referred By: Lamar Weiss Confirmed By:MELVIN RAYMUNDO MD 07/04/18 1343 Date Melvin Raymundo MD CC: Jenifer Grewal MD; Sally Allison MD Signed EMERGENCY DEPARTMENT Observed: 07/02/2018 Status: F Source: [place] SUMMARY 12:20 AM [facility] REPOSITORY [facility] Medical Records Department [address] [place] [address] Emergency Department Summary 07/01/18 1855 MR#: [id number] Acct: [id number] Name: JIMMY BUTLER Rep #: [id number] : 1950 68 From: Jenifer Grewal MD PCP: Sally Allison MD Status: DEP ER - ER Visit Summary Date of Service: 07/01/18 Chief Complaint: Leg swelling History of Present Illness: The patient is a 68 M with a history of CHF, COPD, hypertension, paroxysmal A. fib, sleep apnea. Patient does wear 3 L of oxygen at home. He complains of a several week history of lower extremity edema. He states symptoms seem to get worse today. He does describe some aching in his legs. He does report shortness of breath with exertion similar to his prior CHF exacerbations, but does not have shortness of breath at rest. He denies chest pain. 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 Physical Examination: Vital signs are unremarkable. Pulse ox is 98% on 3 L. Head and neck examination unremarkable. Heart is regular rate and rhythm. Lung sounds are mildly diminished at the bases. Abdomen is soft, nontender, nondistended. Lower external examination reveals 2+ edema that is symmetric. He has strong distal pulses. No overlying skin changes. Test Results: EKG is sinus at 101. He has lateral ST depression and T inversion. This is more pronounced when compared to prior study of 05/12/2018, but does have a very similar appearance to study done on 05/05/2018. CBC reveals normal white count hemoglobin 9.5. Platelet count is 110,000. Chemistry studies significant for bicarb of greater than 45, which is consistent with his prior labs as well. BUN is 41. Troponin is 0.126. For the last 18 months patient has had a chronically elevated troponin in this range. BNP is mildly elevated at 170. Portable chest x-ray read by radiology is COPD and chronic interstitial lung disease. Bipolar pacemaker is in place. Venous ultrasound of the legs reveal no evidence of DVT. There is evidence of possible superficial clot in the lesser saphenous. Emergency Department Course and Treatment: Patient remained stable throughout his ED stay. Patient was given 40 mg of IV Lasix. I did discuss test results with him. I believe his chest x-ray looks slightly wet. Patient's Lasix dose at home will be altered for the next 3 days to try to remove extra fluid. I did review medication with him and he is currently on Eliquis. Patient will follow with his cooky machine operator, Dr. Jarett Finn. Patient is encouraged to return for any worsening symptoms. Treatment Plan: [] Disposition: Discharge Impression: 1. Mild CHF exacerbation 2. Chronically elevated troponin This note was generated with [employer] dictation software. It may contain incorrect words, spelling, and punctuation that were not noted in review of the chart prior to signing ED Disposition - Plan for ED Patient: Disposition: Home or Assisted Living Chief Complaint: Edema Instructions: ED CHF General Referrals: Jarett Finn MD [STAFF PHYSICIAN] - 1 Week Additional Instructions: For the next 3 days only: Take 2 tabs Lasix in the morning (80mg) and 1 tab Lasix in the evening (40mg). What to do if you have Problems For any increased pain, shortness of breath, bleeding, nausea or vomiting, chest pain, or any unexpected problems, contact your Primary Care Provider. Call [facility] ([phone]) or report to the closest Emergency Room. Call 911 if necessary. 07/02/18 0020 <Electronically signed by Jenifer Grewal MD> Date Jenifer Grewal MD Cosigner Signature (If Indicated): Date CC: Sally Allison MD DISCHARGE INSTRUCTION Observed: 07/01/2018 Status: F Source: [place] 9:56 PM [facility] REPOSITORY [facility] Medical Records Department [address] [place] [address] Discharge Instruction 07/01/182154 MR#: [id number] Acct: [id number] Name: JIMMY BUTLER Rep #: [id number] : 1950 68 From: Jenifer Grewal MD PCP: Sally Allison MD Status: REG ER ED Disposition - Plan for ED Patient: Disposition: Home or Assisted Living Chief Complaint: Edema Instructions: ED CHF General Referrals: Jarett Finn MD [STAFF PHYSICIAN] - 1 Week Additional Instructions: For the next 3 days only: Take 2 tabs Lasix in the morning (80mg) and 1 tab Lasix in the evening (40mg). What to do if you have Problems For any increased pain, shortness of breath, bleeding, nausea or vomiting, chest pain, or any unexpected problems, contact your Primary Care Provider. Call [facility] ([phone]) or report to the closest Emergency Room. Call 911 if necessary. 07/01/182155 <Electronically signed by Jenifer Grewal MD> Date Jenifer Grewal MD Cosigner Signature (If Indicated): Date CC: Sally Allison MD CHEST 1 VIEW Observed: 07/01/2018 Status: F Source: [place] (PORTABLE) 9:15 PM [facility] REPOSITORY [facility] Imaging Services [address] [place] [address] Chest 1 View (Portable) MR#: [id number] Acct: [id number] Name: JIMMY BUTLER Rep #: [id number] : 1950 M 68 From: Lele Bearden MD PCP: Sally Allison MD Status: DEP ER Study: Chest 1 View (Portable) Date of Exam: 07/01/18 Exam# [id number] Ordering Dr: Jenifer Grewal MD STUDY: X-RAY CHEST REASON FOR EXAM: Male, 68 years old. Shortness of breath TECHNIQUE: Single frontal view of the chest. COMPARISON: May 12, 2018 FINDINGS: Bipolar pacer on the left unchanged. Patchy bilateral pleural-parenchymal infiltrates appear unchanged. Blunting of the costophrenic angle on the left. The lungs are hyperaerated. Normal size heart. Normal mediastinum and yee. Normal visualized pulmonary arteries. Normal visualized aortic arch and descending thoracic aorta. Normal visualized thoracic spine. Normal visualized ribs, clavicles, and shoulders. There is no demonstrated abnormality of the visualized soft tissue structures of the upper abdomen. RAD/Chest 1 View (Portable) IMPRESSION: COPD and interstitial lung disease unchanged. Bipolar pacer. Electronically Signed: Lele Bearden MD at 22:33 EDT , Service support , CC: Jenifer Grewal MD; Sally Allison MD [employer] System Crewmember: Signed CBC W/DIFF, AUTOMATED Collected: 07/01/2018 Status: F Source: [place] 7:07 PM [facility] REPOSITORY TYPE CODE TESTS RESULT OUT OF RANGE REFERENCE UNITS LAB L100.1000 4.4-11.0 K/mm3 Normal WBC 5.8 LAB L100.1200 4.6-6.2 M/mm3 Low RBC 3.54 LAB L100.1300 13.0-16.5 g/dl Low HGB 9.5 LAB L100.1400 40-54 % Low HCT 34.1 LAB L100.1500 80-94 fL High MCV 96.3 LAB L100.1600 27.0-32.0 pg Low MCH 26.8 LAB L100.1700 32-36 g/gl Low MCHC 27.9 LAB L100.1810 11.6-14.6 % High RDW CV 14.7 LAB L100.1820 35.1-43.9 fl High RDW SD 51.1 LAB L100.1900 150-450 K/mm3 Low PLT 110 LAB L100.2000 6.2-12.0 fl Normal MPV 9.4 LAB L100.2100 47-70 % High NEUT% 90.0 LAB L100.2200 19-41 % Low LY% 6.7 LAB L100.2300 0-10 % Normal MONO% 3.1 LAB L100.2400 0-5 % Normal EO% 0.0 LAB L100.2500 0-1 % Normal BASO% 0.0 LAB L100.2550 0.0-0.9 % Normal IM GRAN % 0.200 Result Comment: IG% - Immature Granulocytes (promyelocytes, myelocytes and metamyelocytes) > 1% indicates that a LEFT SHIFT is Present. LAB L100.2620 2.0-7.7 X10 3/uL Normal Absolute Neut 5.2 LAB L100.2720 0.83-4.51 X10 3/ul Low Absolute Lymph 0.39 LAB L100.4500 Normal SMEAR COMMENT SEE COMMENT Result Comment: LYMPHOPENIA NOTED LAB L100.5500 ADEQ PLT EST Normal SLT DEC LAB L100.7300 ANISO Normal RARE LAB L100.7600 HYPOCHROMASIA Normal 1+ LAB L100.7800 MACROCYTE Normal RARE LAB L100.8200 OVALOCYTE Normal RARE Performed By: #### L100.0100 #### [facility] [address] [place], [place], [id number] BASIC METABOLIC Collected: 07/01/2018 Status: F Source: [place] PROFILE (BMP) 7:07 PM [facility] REPOSITORY TYPE CODE TESTS RESULT OUT OF RANGE REFERENCE UNITS LAB L501.0100 74-106 mg/dL Normal GLU 81 Result Comment: Please note revised GLUCOSE reference range effective 2017. LAB L501.1000 7-18 mg/dL High BUN 41 LAB L501.1100 0.70-1.30 mg/dL Normal CREAT,SERUM 1.29 Result Comment: The validity of the calculated GFR AND GFRAA in patients over 70 years has not been determined. Clinical correlation is essential. LAB L501.1110 >60 mL/min Low EST GFR 59 Result Comment: Non- GFR Calc LAB L501.1115 >60 mL/min Normal EST GFR - AA 71 Result Comment: GFR Calc LAB L501.1255 ml/min Normal Estimated CRCL 56.75 LAB L501.1300 10-20 RATIO High BUN/CRE 31.8 LAB L501.2200 8.5-10 mg/dL Normal .1 CA 8.9 LAB L501.5300 136-14 mmol/L Normal 5 NA 143 LAB L501.5600 3.5-5. mmol/L Normal 1 K 4.9 LAB L501.5900 98-107 mmol/L Normal CL 99 LAB L501.6100 21.0-3 mmol/L High 2.0 CO2 alert > 45.0 Result Comment: CRITICAL VALUE VERIFIED. CALLED TO PATRICIA IN ED 07/01/181942 Savita Douglas. RESULTS READ BACK BY SAME . LAB L501.6200 5-15 Normal Test not performed GAP Performed By: #### L500.2500, L501.4010 #### [facility] [address] [place], [place], [address] TROPONIN-I Collected: 07/01/2018 Status: F Source: [place] 7:07 PM [facility] REPOSITORY TYPE CODE TESTS RESULT OUT OF RANGE REFERENCE UNITS LAB L501.4010 <0.045 ng/mL High 0.126 TROPONIN-I Result Comment: TROPONIN-I EXPECTED VALUES <0.045 Negative 0.045 - 0.590 Consistent with Cardiac Damage > OR = 0.600 Critical Value Not every elevated troponin is indicative of [place]. These values should be used with clinical judgement in examining the patient's clinical picture for diagnosis. To establish a diagnosis of [place] versus myocardial injury, there must be a demonstrated rise and/or fall in the troponin values, in addition to ischemic symptoms, EKG changes, new regional wall motion abnormality, and/or angiographical evidence. PLEASE NOTE: REFERENCE RANGES EDITED 18 Performed By: #### L500.2500, L501.4010 #### [facility] [address] [place], [address] VENOUS DUPLEX Observed: 07/01/2018 Status: F Source: [place] IMAG/AARON EXTREM 7:07 PM [facility] REPOSITORY [facility] Imaging Services [address] [place] [address] Venous Duplex Imag/Aaron Extrem MR#: [id number] Acct: [id number] Name: JIMMY BUTLER Rep #: [id number] : 1950 M 68 From: Lele Bearden MD PCP: Sally Allison MD Status: REG ER Study: Venous Duplex Imag/Aaron Extrem Date of Exam: 07/01/18 Exam# [id number] Ordering Dr: Jenifer Grewal MD STUDY: VENOUS DOPPLER ULTRASOUND - BILATERAL LOWER EXTREMITIES REASON FOR EXAM: Male, 68 years old. Lower leg swelling TECHNIQUE: Ultrasound evaluation of the deep vein system to include bazzi-scale imaging and compression was performed. Bazzi-scale imaging and Doppler sonographic evaluation, including duplex spectral analysis and qualitative color flow sonography, was performed. COMPARISON: None. FINDINGS: RIGHT LEG partial compression and internal echoes superficial lower lesser saphenous vein. Common Femoral Vein: Normal compression, spontaneity and augmentation. Normal color Doppler. Common Femoral Vein/Greater Saphenous Junction: Normal compression, spontaneity and augmentation. Normal color Doppler. Deep Femoral Vein: Normal compression, spontaneity and augmentation. Normal color Doppler. Femoral Proximal: Normal compression, spontaneity and augmentation. Normal color Doppler. Femoral Middle: Normal compression, spontaneity and augmentation. Normal color Doppler. Femoral Distal: Normal compression, spontaneity and augmentation. Normal color Doppler. Popliteal Vein: Normal compression, spontaneity and augmentation. Normal color Doppler. Posterior Tibial Vein: Normal compression, spontaneity and augmentation. Normal color Doppler. Peroneal Vein: Normal compression, spontaneity and augmentation. Normal color Doppler. LEFT LEG partial compression and internal echoes superficial lower lesser saphenous vein. Common Femoral Vein: Normal compression, spontaneity and augmentation. Normal color Doppler. Common Femoral Vein/Greater Saphenous Junction: Normal compression, spontaneity and augmentation. Normal color Doppler. Deep Femoral Vein: Normal compression, spontaneity and augmentation. Normal color Doppler. Femoral Proximal: Normal compression, spontaneity and augmentation. Normal color Doppler. Femoral Middle: Normal compression, spontaneity and augmentation. Normal color Doppler. Femoral Distal: Normal compression, spontaneity and augmentation. Normal color Doppler. Popliteal Vein: Normal compression, spontaneity and augmentation. Normal color Doppler. Posterior Tibial Vein: Normal compression, spontaneity and augmentation. Normal color Doppler. Peroneal Vein: Normal compression, spontaneity and augmentation. Normal color Doppler. US/Venous Duplex Imag/Aaron Extrem IMPRESSION: Bilateral nonocclusive thrombus lesser saphenous veins but no deep venous thrombosis. Electronically Signed: Lele Bearden MD at 20:56 EDT , Service support , CC: Jenifer Grewal MD; Sally Allison MD [employer] Crewmember: Signed BNP,B-TYPE NATRIURETIC Collected: 07/01/2018 Status: F Source: [place] PEPTIDE 7:07 PM [facility] REPOSITORY TYPE CODE TESTS RESULT OUT OF RANGE REFERENCE UNITS LAB L503.6620 0-100 pg/mL High B-TYPE 170.9 EJ PEP Performed By: #### L503.6620 #### [facility] [address] [place], [address] INITAL EVALUATION (1) Observed: 06/30/2018 Status: F Source: [place] - PT 6:18 PM [facility] REPOSITORY [facility] [address] [place] [address]. [address] [place] [address] Fax REHABILITATION SERVICES INITIAL EVALUATION MR#: [id number] Acct: [id number] Name: BUTLERJIMMY Rep #: [id number] : 1950 68 From: [place] [facility], Cert. MDT, OCS Referring Dr.: Lamar Weiss MD Status: REG RCR Insurance: MEDICARE PART A B [facility] Patient's Visit Information JIMMY BUTLER is a 68 year old M referred to Physical Therapy by Lamar Weiss with a diagnosis of BACK PAIN. Date of Evaluation: 06/29/18 Physical Therapist: [place] [facility], - Visit Plan Frequency: 2x /Week Duration: 4 Weeks Plan: PRECAUTIONS: PACEMAKER /DIFFIBRILATOR. W/C LEVEL MIN WALKER AT HOME,3L02 CONTS,H/O LUMBAR FUSION/CERVICAL FUSION. VERY DECONDITIONED. GRADE SLOW PROGRESSION STRENGTHENING BLE,POSTURAL EX'S,CORE EX'S KARIS - Subjective Subjective: This 68 y/o male presents to physical therapy with back pain since FEBRUARY. Patient developed lumba pain symmtrical no radicular symptoms or etiology of pain . Symptoms worse walking short distances ,inactivity. Patient has 3 L02 continues. Patient limited with walking due COPD/CHF.PRECAUTION-PACEMAKER/DIFFIBRILATOR. Patient has h/o lumbar fusion x2 with foot drop ,cervical fusion,left TKR. .Symtoms better with nothing. Seen DR Puentes tried 4 injections in lumbar didnt help. Patient sleeping okay. Denies parathesia/tingling.Patient was hospitalized had pneumothorax . Patient has w/c at home ,fww. Stays in bed majority of time. Bowel/bladder good. Patient condition impairs QOL and function,. Patient fww at home. Unable to stand less than a min walks 20 feet increase SOB and pain. SOCIAL: - Pain Bilateral Back Pain Intensity (Out of 10): 7 Pain Intensity Range: 10 - Objective POSTURE: rounded shoulders head foward ,posterior pelic tilt. NEURO: denies parathesia/tingling,reflexes L3-4,L4-5,L5-S1 1/3. GAIT: ambulated 10 feet shuffle steps unsteadt. BALANCE: FAIR dynamic. MMT: ankle DF 3+/5,PF 3/5,quads/hams 4-/5,hip flexion 3+/5. LUMBAR ROM: flexion mod loss,extension severe loss,. FLEXABLITY: hams mod loss. CONDITION: very poor - Special Tests L/S Slump test left side: Negative L/S Slump test right side: Negative L/S Left Straight Leg Raise: Negative L/S Right Straight Leg Raise: Negative - Goals Goal 1:: Independant with HEP Goal Time Frame: 4-6 Weeks Goal 2:: Patient increase strength BLE 1/2 grade to improve function. Goal Time Frame: 4-6 Weeks Goal 3:: Patient decrease lumbar pain by 40% or greater to improve function. Goal Time Frame: 4-6 Weeks Goal 4:: Patient to ambulate 20-30 feet with less pain with 02 Goal Time Frame: 4-6 Weeks Goal 5:: Patient improve functional endurance for activity to fair- Goal Time Frame: 4-6 Weeks Goal 6:: Patient be more active at home to improve QOL Goal Time Frame: 4-6 Weeks - Rehabilitation Potential Physical Therapy Diagnosis: This patient has multiple complexity issues with back pain with comorbities with lumbar fusion x2,cervical fusion,left TKR ,pacemaker/diffibralator,w/c level min walks no device ,bed majority of day ,poor endurance on 3L02 thus benifit from skilled PT Rehabilitation Potential: Fair - Anticipated Interventions Patient/Client Instruction: Educate patient on: Condition, Plan of Care For the Purpose of:: To decrease pain, To increase ROM, To improve muscle performance and motor function, To improve ability to perform ADL's, To increase tolerance to activity/condition/position, To improve performance and independence with ADL's, To decrease level of supervision to perform tasks, To improve ability of physical actions for home/community/work/leisure, To improve gait and locomotor functions, To increase flexibility/ROM, To improve endurance, To improve balance, To improve safety with gait, To assume or resume ADL's, To improve health and function, To improve ability to perform tasks related to life management Therapeutic Exercise to Include: Strength training, Endurance training, Balance training, Postural training, Flexibilty training, Dynamic Lumbar Stabilization Comment: GRADED SLOW For the Purpose of:: To decrease pain, To increase ROM, To improve muscle performance and motor function, To increase tolerance to activity/condition/position, To improve performance and independence with ADL's, To improve ability of physical actions for home/community/work/leisure, To improve gait and locomotor functions, To improve health of tissue, To decrease soft tissue restriction, To increase flexibility/ROM, To improve endurance, To improve balance, To improve safety with gait, To assume or resume ADL's, To improve ability to perform tasks related to life management Thank you for the opportunity to evaluate your patient. For Medicare and Medicare HMO plans, please review the plan of care and approve it. It will need to be FAXED BACK to us at [phone] for Medicare purposes. Please let me know if there are questions or concerns regarding this plan of care. Physician Signature: Date: <Electronically signed by [place] PT, Cert. T, OCS> 06/30/18 1818 CC: Lamar Weiss MD; Sally Allison MD DANNIE Signed For Medicare only, by signing this I certify the plan of care. Physicians Signature Date FECAL OCCULT BLD Collected: 06/27/2018 Status: F Source: [facility] 1:40 PM [facility] REPOSITORY TYPE CODE TESTS RESULT OUT OF REFERENCE UNITS RANGE LAB IFO Negative Immuno Negative FOB Result Comment: This test was developed and its performance characteristics determined by [facility]'s [facility] [place] [facility] It has not been cleared or approved by the FDA. [facility] is regulated under CLIA as qualified to perform high-complexity testing. This test is used for clinical purposes. It should not be regarded as investigational or for research. Performed By: #### IFOBT #### [facility] [address] [place], [place] [address] THORACIC SPINE 2 Observed: 06/22/2018 Status: F Source: [place] VIEWS 11:31 AM [facility] REPOSITORY [facility] Imaging Services [address] [place] [address] Thoracic Spine 2 Views MR#: [id number] Acct: [id number] Name: JIMMY BUTLER Rep #: [id number] : 1950 M 68 From: Desmond Ty MD PCP: Sally Allison MD Status: REG CLI Study: Thoracic Spine 2 Views Date of Exam: 06/22/18 Exam# [id number] Ordering Dr: Lamar Weiss MD STUDY: X-RAY - THORACIC SPINE REASON FOR EXAM: Male, 68 years old. Mid back pain, no known injury TECHNIQUE: 4 view(s) of the thoracic spine were obtained. COMPARISON: None. FINDINGS: Normal kyphosis of the thoracic spine. There is no substantial scoliosis. There is demineralization of the thoracic spine. Normal disc space heights. There is a moderately severe compression deformity of T7 and mild compression deformity of T6. There has been further compression deformity of T7 from prior CTA study of 05/12/2018. The T6 compression deformity represents a new interval finding. The soft tissue structures are unremarkable. RAD/Thoracic Spine 2 Views IMPRESSION: 1. Moderately severe compression deformity of T7, increased in severity from prior CT of the chest dated 05/12/2018. 2. New mild compression deformity of T6. 3. The bones are osteopenic. 4. If clinically indicated, nuclear bone scan may be helpful for further evaluation. Electronically Signed: Desmond Ty MD at 17:13 EDT , Service support , CC: Lamar Weiss MD; Sally Allison MD [employer] Crewmember: Signed PROGRESS Observed: 06/17/2018 Status: COMPLETED Source: [place] 5:31 PM [facility] REPOSITORY HNO ID: [id number] Author: Robbin Clarke (Rn) Service: (none) Author Type: Registered Nurse Type: Progress Notes Filed: 06/17/2018 5:32 PM Note Text: PRIMARY CARE COORDINATION QUICK NOTE Provider Action/FYI Opened in error Patient identified by name and date . Tricia Siegel RN June 17, 2018 5:32 PM CBC Collected: 06/16/2018 Status: F Source: [place] 2:25 PM [facility] REPOSITORY TYPE CODE TESTS RESULT OUT OF REFERENCE UNITS RANGE LAB WBC 3.70-11.00 k/uL WBC 4.80 LAB RBC 4.20-6.00 m/uL Low RBC 3.36 LAB HGB 13.0-17.0 g/dL Low Hemoglobin 9.2 LAB HCT 39.0-51.0 % Low Hematocrit 33.2 LAB MCV 80.0-100.0 fL MCV 98.8 LAB MCH 26.0-34.0 pG MCH 27.4 LAB MCHC 30.5-36.0 g/dL Low MCHC 27.7 LAB RDWCV 11.5-15.0 % RDW-CV High 15.4 LAB PLTCT 150-400 k/uL Low Platelet Count 145 LAB MPV 9.0-12.7 fL MPV 9.7 LAB ABSNUC <0.01 k/uL Absolute nRBC <0.01 Performed By: #### CBC, B12, SERFOL #### [facility] [employer] [address] [place], [place] [address] VITAMIN B12 Collected: 06/16/2018 Status: F Source: [place] 2:25 PM [facility] REPOSITORY TYPE CODE TESTS RESULT OUT OF REFERENCE UNITS RANGE LAB B12 232-1245 pg/mL Vitamin B12 1104 Performed By: #### CBC, B12, SERFOL #### [facility] [employer] [address] [place], [place] [address] FOLATE, SERUM Collected: 06/16/2018 Status: F Source: [place] 2:25 PM [facility] REPOSITORY TYPE CODE TESTS RESULT OUT OF REFERENCE UNITS RANGE LAB SERFOL >4.7 ng/mL Folate, 16.5 Serum Performed By: #### CBC, B12, SERFOL #### [facility] [employer] [address] [place], [place] [address] PROGRESS Observed: 06/16/2018 Status: COMPLETED Source: [place] 1:36 PM [facility] REPOSITORY HNO ID: [id number] Author: Sally Stroud [facility] Service: (none) Author Type: Physician Type: Progress Notes Filed: 06/17/2018 4:01 PM Note Text: Chief Complaint Patient presents with: Recheck: HTN, CHF and COPD HPI Jimmy Butler is a 68 year old male who presents here today for a follow up visit. Here today with his , Kg who's concerned. Hospital follow up - Recently seen in [facility] ER due to ongoing back pain that was exacerbated. Patient has been having ongoing back pain since prior hospitalization in February. Rates pain a 6-7/10 at times and states its sore, aching and throbbing. Pain worse at times in the morning or when lying down. Wonders if pain is due to being inactive. COPD - Still smoking 4-5 cigarettes. Feels his breathing isn't doing very good. Starting to get a bad cough with congestion, producing sputum but unsure what color due to not paying attention to what color it is. Admits to increased sob. Currently on 3 liters of oxygen constantly. Follows with Dr. Arnett, with last visit being about a mo and f/u every 3 months. Uses nebulizer daily, using more frequently through out the day then he has before. Uses Bipap at night to help help sleep and breath. Uses Prednisone 10 mg once daily currently. CHF - Has intermittent swelling in his feet. Currently taking Lasix 20 1 tab po bid and Aldactone 25 mg once daily. Follows with Dr. Camilo. HTN - Denies checking BP at home lately. [place] that defibrillator was fluttering the other day. Admits to sob. Denies dizziness. BP has been running low per pt , so Digoxin 250 mg has been reduced to 0.5 tab daily and Hydralazine 50 to 0.5 tab TID. Urology - Follows with Dr. Diaz for Prostate issues and take Macrobid daily to reduce infection and Proscar 5 mg 1 tab po once daily. Past medical history, appointments, medications, allergies reviewed. 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 Upper lobe nodular infiltrates. - Unspecified essential hypertension Previous Surgical History PAST SURGICAL HISTORY Procedure Laterality Date - INSERTION OF CHEST TUBE 06/19/16 left - LAMINECT W/EXPLOR LUMBAR ST jaylon Hess. - PAST SURGICAL HISTORY OF cervical fusion 2x. - PAST SURGICAL HISTORY OF torn lig. knee, left - PAST SURGICAL HISTORY OF carpel tunnel L side - PAST SURGICAL HISTORY OF ~ brain aneurysms, repaired before rupture. - TOTAL KNEE REPLACEMENT left knee - TRANSURETHRAL ELEC-SURG PROSTATECTOM ~2009 x2. Still symptomatic. Family History FAMILY HISTORY Problem Relation Age of Onset - Hypertension Mother - Emphysema Father - Cancer Brother Lung Patient Allergies ALLERGIES Allergen Reactions - Asa [Aspirin] GI Upset - Asa [Salicylates] GI Upset Current Medications Current Outpatient Prescriptions on File Prior to Visit: hydrALAZINE (APRESOLINE) 50 mg tablet Take 0.5 tablets by mouth three times daily. ferrous sulfate 325 mg (65 mg iron) tablet Take 1 tablet by mouth daily with breakfast. nystatin (MYCOSTATIN) 100,000 unit/mL susp Take 5 mL by mouth three times daily. lisinopril (ZESTRIL, PRINIVIL) 20 mg tablet Take 1 tablet by mouth once daily. carvedilol (COREG) 25 mg tablet TAKE 1 TABLET BY MOUTH TWICE DAILY WITH MEALS digoxin (LANOXIN) 250 mcg tablet Take 1 tablet by mouth once daily. ELIQUIS 5 mg tab(s) TAKE 1 TABLET BY MOUTH TWICE DAILY furosemide (LASIX) 20 mg tablet TAKE 1 TABLET BY MOUTH TWICE DAILY nitrofurantoin monohydrate and macrocrystal (MACROBID) 100 mg capsule Take 1 capsule by mouth once daily. finasteride (PROSCAR) 5 mg tablet Take 1 tablet by mouth once daily. memantine XR (NAMENDA XR) 28 mg CSpX Take 1 capsule by mouth once daily. potassium chloride (K-TAB) 10 mEq tablet Take 1 tablet by mouth daily with breakfast. isosorbide mononitrate ER (IMDUR) 30 mg 24 hr tablet TAKE 1 TABLET BY MOUTH EVERY DAY spironolactone (ALDACTONE) 25 mg tablet Take 1 tablet by mouth once daily. BIPAP levalbuterol (XOPENEX) 0.63 mg/3 mL nebulizer solution Use 3 mL via nebulizer every 6 hours as needed for Wheezing/Shortness of Breath (for wheezing). Dx: J44.9 nitroglycerin sublingual (NITROQUICK) 0.4 mg SL tablet Dissolve 1 tablet under the tongue as needed. FOR CHEST PAIN. IF NO RELIEF CALL 911 predniSONE (DELTASONE) 10 mg tablet Take 10 mg by mouth once daily. COMPOUNDED PRESCRIPTION [facility] for home BP monitoring COMPOUNDED PRESCRIPTION Oxygen 3 liters Cyanocobalamin (VITAMIN B-12) 1,000 mcg subl Dissolve 1 tablet under the tongue once daily. budesonide (PULMICORT FLEXHALER) 180 mcg/actuation aepb Inhale 2 Puffs as instructed twice daily. No current facility-administered medications on file prior to visit. 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 Social History Main Topics Smoking status: Current Every Day Smoker Packs/day: 1.00 Years: 50.00 Types: Cigarettes Start date: 1964 Last attempt to quit: 12/23/2014 Smokeless tobacco: Never Used Alcohol use: Yes Comment: Infrequent beer. 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 Dog. Birds. EXAM: BP 94/60 (BP Site: Left Arm, BP Position: Sitting, BP Cuff Size: Regular Adult) Pulse 92 Resp 16 General Appearance: Well appearing, alert, in no acute distress, well-hydrated, well nourished.. Lungs: Lungs sound tight on exam. Wheezing, rhonchi, rales. Heart: RRR without murmur, gallop, or rubs. No ectopy. Extremities: Edema: Left ankle slight edema, but overall look well on exam. Health Maintenance List DTAP,TDAP,TD(1 - Tdap) due on 1967 HEPATITIS C SCREENING due on 1992 COLORECTAL CANCER SCREENING,SEE MODIFIER due on 05/08/2012 ANDREA/ARB MED PRESCRIBED due on 06/22/2018 INFLUENZA(1) due on 07/23/2018 ANNUAL PCP TEAM CHRONIC DISEASE VISIT due on 05/09/2019 BLOOD PRESSURE CONTROLLED due on 05/19/2019 DIABETES SCREEN due on 05/19/2021 LIPID SCREEN due on 12/16/2022 ADULT PREVNAR-13 Completed PNEUMOVAX AGE 65 AND OVER WITH 5YR LOOKBACK Completed Data reviewed ER visit in May Appointment on 05/19/2018 Component Date Value - WBC 05/19/2018 4.12 - RBC 05/19/2018 2.98* - Hemoglobin 05/19/2018 8.1* - Hematocrit 05/19/2018 29.4* - MCV 05/19/2018 98.7 - MCH 05/19/2018 27.2 - MCHC 05/19/2018 27.6* - RDW-CV 05/19/2018 15.4* - Platelet Count 05/19/2018 134* - MPV 05/19/2018 10.5 - Neut% 05/19/2018 71.3 - Abs Neut (ANC) 05/19/2018 2.94 - Lymph% 05/19/2018 17.5 - Abs Lymph 05/19/2018 0.72* - [place]in% 05/19/2018 10.7 - Abs [place]in 05/19/2018 0.44 - Eosin% 05/19/2018 0.5 - Abs Eosin 05/19/2018 <0.03 - Baso% 05/19/2018 0.0 - Abs Baso 05/19/2018 <0.03 - Nucleated Reds 05/19/2018 0.5* - Absolute nRBC 05/19/2018 0.02* - Diff Type 05/19/2018 Auto Diff - Protein, Total 05/19/2018 6.1* - Albumin 05/19/2018 3.6* - Calcium 05/19/2018 8.9 - Bilirubin, Total 05/19/2018 0.2 - Alkaline Phosphatase 05/19/2018 52 - AST 05/19/2018 21 - Glucose 05/19/2018 94 - BUN 05/19/2018 21 - Creatinine 05/19/2018 1.17 - Sodium 05/19/2018 143 - Potassium 05/19/2018 4.3 - Chloride 05/19/2018 95* - CO2 05/19/2018 39* - Anion Gap 05/19/2018 9 - ALT 05/19/2018 12 - eGFR- 05/19/2018 >60 - eGFR-All Other Races 05/19/2018 >60 - Iron 05/19/2018 79 - TIBC 05/19/2018 308 - Transferrin Saturation 05/19/2018 26 - Ferritin 05/19/2018 116.9 Results Only on 05/18/2018 Component Date Value - GLUCOSE UA (POCT) 05/18/2018 Negative - BILIRUBIN UA (POCT) 05/18/2018 Negative - KETONE UA (POCT) 05/18/2018 Negative - SPECIFIC GRAVITY UA (POC* 05/18/2018 1.015 - HEMOGLOBIN/BLOOD UA (PO* 05/18/2018 Negative - PH UA (POCT) 05/18/2018 7.0 - PROTEIN UA (POCT) 05/18/2018 Trace* - UROBILINOGEN UA (POCT) 05/18/2018 0.2 - NITRITE UA (POCT) 05/18/2018 Negative - LEUKOCYTES UA (POCT) 05/18/2018 Trace* - COLOR UA (POCT) 05/18/2018 Dark yellow - CLARITY UA (POCT) 05/18/2018 Clear Office Visit on 05/18/2018 Component Date Value - Specimen Request 05/18/2018 Value:Presurgical Sterilization Specimen received in preservative - Culture 05/18/2018 * Value:<1,000 CFU/ml Normal Urogenital ramirez: Coagulase negative Staphylococcus species Appointment on 04/26/2018 Component Date Value - Specimen Request 04/26/2018 Value:Presurgical Sterilization Specimen received in preservative - Culture 04/26/2018 * Value:>=100,000 CFU/ml Enterococcus faecalis Cephalosporins, clindamycin, and TMP-SMX are not effective for the treatment of enterococcal infections. - Culture 04/26/2018 Testing or reporting of additional agents was requested. ASSESSMENT/PLAN: 1. Hypertension, unspecified type - ICD9: 401.9, ICD10: I10 (primary diagnosis) - good control - Continue current medication(s) - Goal of BP <140/90 2. Chronic obstructive pulmonary disease, unspecified COPD type (HCC) - ICD9: 496, ICD10: J44.9 3. PETE treated with BiPAP - ICD9: 327.23, ICD10: G47.33 4. AICD (automatic cardioverter/defibrillator) present - ICD9: V45.02, ICD10: Z95.810 5. Nonischemic cardiomyopathy (HCC) - ICD9: 425.4, ICD10: I42.8 6. Atrial fibrillation with rapid ventricular response (HCC) - ICD9: 427.31, ICD10: I48.91 7. Anemia, unspecified type - ICD9: 285.9, ICD10: D64.9 8. Low back pain without sciatica, unspecified back pain laterality, unspecified chronicity - ICD9: 724.2, ICD10: M54.5 9. Urethral stricture, unspecified stricture type - ICD9: 598.9, ICD10: N35.9 10. Tobacco abuse - ICD9: 305.1, ICD10: Z72.0 11. COPD with exacerbation (HCC) - ICD9: 491.21, ICD10: J44.1 Levaquin, prednisone; call if not improved next week Follow up in 2-3 months Sally Allison MD The documentation for this note was completed by Leesa Jeffrey Ma acting as scribe for Sally Allison MD. June 16, 2018 1:37 PM. CNOV Observed: 06/16/2018 Status: COMPLETED Source: [place] 1:20 PM [facility]POSITORY Office Visit (FAMPWS) JIMMY BUTLER ([id number]) 1950 M Date Time Provider Department 06/16/18 1:20 PM SALLY ALLISON During your visit today, we recorded the following information about you: Pulse Respiration Blood pressure 92/minute 16/minute 94/60 Sally Allison MD 06/17/2018 4:01 PM Signed Chief Complaint Patient presents with: Recheck: HTN, CHF and COPD HPI Jimmy Butler is a 68 year old male who presents here today for a follow up visit. Here today with his , Kg who's concerned. Hospital follow up - Recently seen in [facility] ER due to ongoing back pain that was exacerbated. Patient has been having ongoing back pain since prior hospitalization in February. Rates pain a 6-7/10 at times and states its sore, aching and throbbing. Pain worse at times in the morning or when lying down. Wonders if pain is due to being inactive. COPD - Still smoking 4-5 cigarettes. Feels his breathing isn't doing very good. Starting to get a bad cough with congestion, producing sputum but unsure what color due to not paying attention to what color it is. Admits to increased sob. Currently on 3 liters of oxygen constantly. Follows with Dr. Arnett, with last visit being about a mo and f/u every 3 months. Uses nebulizer daily, using more frequently through out the day then he has before. Uses Bipap at night to help help sleep and breath. Uses Prednisone 10 mg once daily currently. CHF - Has intermittent swelling in his feet. Currently taking Lasix 20 1 tab po bid and Aldactone 25 mg once daily. Follows with Dr. Camilo. HTN - Denies checking BP at home lately. Lerona that defibrillator was fluttering the other day. Admits to sob. Denies dizziness. BP has been running low per pt , so Digoxin 250 mg has been reduced to 0.5 tab daily and Hydralazine 50 to 0.5 tab TID. Urology - Follows with Dr. Diaz for Prostate issues and take Macrobid daily to reduce infection and Proscar 5 mg 1 tab po once daily. Past medical history, appointments, medications, allergies reviewed. 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 Upper lobe nodular infiltrates. - Unspecified essential hypertension Previous Surgical History PAST SURGICAL HISTORY Procedure Laterality Date - INSERTION OF CHEST TUBE 06/19/16 left - LAMINECT W/EXPLOR LUMBAR ST jaylon Hess. - PAST SURGICAL HISTORY OF cervical fusion 2x. - PAST SURGICAL HISTORY OF torn lig. knee, left - PAST SURGICAL HISTORY OF carpel tunnel L side - PAST SURGICAL HISTORY OF ~ brain aneurysms, repaired before rupture. - TOTAL KNEE REPLACEMENT left knee - TRANSURETHRAL ELEC-SURG PROSTATECTOM ~2009 x2. Still symptomatic. Family History FAMILY HISTORY Problem Relation Age of Onset - Hypertension Mother - Emphysema Father - Cancer Brother Lung Patient Allergies ALLERGIES Allergen Reactions - Asa [Aspirin] GI Upset - Asa [Salicylates] GI Upset Current Medications Current Outpatient Prescriptions on File Prior to Visit: hydrALAZINE (APRESOLINE) 50 mg tablet Take 0.5 tablets by mouth three times daily. ferrous sulfate 325 mg (65 mg iron) tablet Take 1 tablet by mouth daily with breakfast. nystatin (MYCOSTATIN) 100,000 unit/mL susp Take 5 mL by mouth three times daily. lisinopril (ZESTRIL, PRINIVIL) 20 mg tablet Take 1 tablet by mouth once daily. carvedilol (COREG) 25 mg tablet TAKE 1 TABLET BY MOUTH TWICE DAILY WITH MEALS digoxin (LANOXIN) 250 mcg tablet Take 1 tablet by mouth once daily. ELIQUIS 5 mg tab(s) TAKE 1 TABLET BY MOUTH TWICE DAILY furosemide (LASIX) 20 mg tablet TAKE 1 TABLET BY MOUTH TWICE DAILY nitrofurantoin monohydrate and macrocrystal (MACROBID) 100 mg capsule Take 1 capsule by mouth once daily. finasteride (PROSCAR) 5 mg tablet Take 1 tablet by mouth once daily. memantine XR (NAMENDA XR) 28 mg CSpX Take 1 capsule by mouth once daily. potassium chloride (K-TAB) 10 mEq tablet Take 1 tablet by mouth daily with breakfast. isosorbide mononitrate ER (IMDUR) 30 mg 24 hr tablet TAKE 1 TABLET BY MOUTH EVERY DAY spironolactone (ALDACTONE) 25 mg tablet Take 1 tablet by mouth once daily. BIPAP levalbuterol (XOPENEX) 0.63 mg/3 mL nebulizer solution Use 3 mL via nebulizer every 6 hours as needed for Wheezing/Shortness of Breath (for wheezing). Dx: J44.9 nitroglycerin sublingual (NITROQUICK) 0.4 mg SL tablet Dissolve 1 tablet under the tongue as needed. FOR CHEST PAIN. IF NO RELIEF CALL 911 predniSONE (DELTASONE) 10 mg tablet Take 10 mg by mouth once daily. COMPOUNDED PRESCRIPTION [facility] for home BP monitoring COMPOUNDED PRESCRIPTION Oxygen 3 liters Cyanocobalamin (VITAMIN B-12) 1,000 mcg subl Dissolve 1 tablet under the tongue once daily. budesonide (PULMICORT FLEXHALER) 180 mcg/actuation aepb Inhale 2 Puffs as instructed twice daily. No current facility-administered medications on file prior to visit. 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 Social History Main Topics Smoking status: Current Every Day Smoker Packs/day: 1.00 Years: 50.00 Types: Cigarettes Start date: 1964 Last attempt to quit: 12/23/2014 Smokeless tobacco: Never Used Alcohol use: Yes Comment: Infrequent beer. 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 Dog. Birds. EXAM: BP 94/60 (BP Site: Left Arm, BP Position: Sitting, BP Cuff Size: Regular Adult) Pulse 92 Resp 16 General Appearance: Well appearing, alert, in no acute distress, well-hydrated, well nourished.. Lungs: Lungs sound tight on exam. Wheezing, rhonchi, rales. Heart: RRR without murmur, gallop, or rubs. No ectopy. Extremities: Edema: Left ankle slight edema, but overall look well on exam. Health Maintenance List DTAP,TDAP,TD(1 - Tdap) due on 1967 HEPATITIS C SCREENING due on 1992 COLORECTAL CANCER SCREENING,SEE MODIFIER due on 05/08/2012 ANDREA/ARB MED PRESCRIBED due on 06/22/2018 INFLUENZA(1) due on 07/23/2018 ANNUAL PCP TEAM CHRONIC DISEASE VISIT due on 05/09/2019 BLOOD PRESSURE CONTROLLED due on 05/19/2019 DIABETES SCREEN due on 05/19/2021 LIPID SCREEN due on 12/16/2022 ADULT PREVNAR-13 Completed PNEUMOVAX AGE 65 AND OVER WITH 5YR LOOKBACK Completed Data reviewed ER visit in [facility] Appointment on 05/19/2018 Component Date Value - WBC 05/19/2018 4.12 - RBC 05/19/2018 2.98* - Hemoglobin 05/19/2018 8.1* - Hematocrit 05/19/2018 29.4* - MCV 05/19/2018 98.7 - MCH 05/19/2018 27.2 - MCHC 05/19/2018 27.6* - RDW-CV 05/19/2018 15.4* - Platelet Count 05/19/2018 134* - MPV 05/19/2018 10.5 - Neut% 05/19/2018 71.3 - Abs Neut (ANC) 05/19/2018 2.94 - Lymph% 05/19/2018 17.5 - Abs Lymph 05/19/2018 0.72* - [place]in% 05/19/2018 10.7 - Abs [place]in 05/19/2018 0.44 - Eosin% 05/19/2018 0.5 - Abs Eosin 05/19/2018 <0.03 - Baso% 05/19/2018 0.0 - Abs Baso 05/19/2018 <0.03 - Nucleated Reds 05/19/2018 0.5* - Absolute nRBC 05/19/2018 0.02* - Diff Type 05/19/2018 Auto Diff - Protein, Total 05/19/2018 6.1* - Albumin 05/19/2018 3.6* - Calcium 05/19/2018 8.9 - Bilirubin, Total 05/19/2018 0.2 - Alkaline Phosphatase 05/19/2018 52 - AST 05/19/2018 21 - Glucose 05/19/2018 94 - BUN 05/19/2018 21 - Creatinine 05/19/2018 1.17 - Sodium 05/19/2018 143 - Potassium 05/19/2018 4.3 - Chloride 05/19/2018 95* - CO2 05/19/2018 39* - Anion Gap 05/19/2018 9 - ALT 05/19/2018 12 - eGFR- 05/19/2018 >60 - eGFR-All Other Races 05/19/2018 >60 - Iron 05/19/2018 79 - TIBC 05/19/2018 308 - Transferrin Saturation 05/19/2018 26 - Ferritin 05/19/2018 116.9 Results Only on 05/18/2018 Component Date Value - GLUCOSE UA (POCT) 05/18/2018 Negative - BILIRUBIN UA (POCT) 05/18/2018 Negative - KETONE UA (POCT) 05/18/2018 Negative - SPECIFIC GRAVITY UA (POC* 05/18/2018 1.015 - HEMOGLOBIN/BLOOD UA (PO* 05/18/2018 Negative - PH UA (POCT) 05/18/2018 7.0 - PROTEIN UA (POCT) 05/18/2018 Trace* - UROBILINOGEN UA (POCT) 05/18/2018 0.2 - NITRITE UA (POCT) 05/18/2018 Negative - LEUKOCYTES UA (POCT) 05/18/2018 Trace* - COLOR UA (POCT) 05/18/2018 Dark yellow - CLARITY UA (POCT) 05/18/2018 Clear Office Visit on 05/18/2018 Component Date Value - Specimen Request 05/18/2018 Value:Presurgical Sterilization Specimen received in preservative - Culture 05/18/2018 * Value:<1,000 CFU/ml Normal Urogenital ramirez: Coagulase negative Staphylococcus species Appointment on 04/26/2018 Component Date Value - Specimen Request 04/26/2018 Value:Presurgical Sterilization Specimen received in preservative - Culture 04/26/2018 * Value:>=100,000 CFU/ml Enterococcus faecalis Cephalosporins, clindamycin, and TMP-SMX are not effective for the treatment of enterococcal infections. - Culture 04/26/2018 Testing or reporting of additional agents was requested. ASSESSMENT/PLAN: 1. Hypertension, unspecified type - ICD9: 401.9, ICD10: I10 (primary diagnosis) - good control - Continue current medication(s) - Goal of BP <140/90 2. Chronic obstructive pulmonary disease, unspecified COPD type (HCC) - ICD9: 496, ICD10: J44.9 3. PETE treated with BiPAP - ICD9: 327.23, ICD10: G47.33 4. AICD (automatic cardioverter/defibrillator) present - ICD9: V45.02, ICD10: Z95.810 5. Nonischemic cardiomyopathy (HCC) - ICD9: 425.4, ICD10: I42.8 6. Atrial fibrillation with rapid ventricular response (HCC) - ICD9: 427.31, ICD10: I48.91 7. Anemia, unspecified type - ICD9: 285.9, ICD10: D64.9 8. Low back pain without sciatica, unspecified back pain laterality, unspecified chronicity - ICD9: 724.2, ICD10: M54.5 9. Urethral stricture, unspecified stricture type - ICD9: 598.9, ICD10: N35.9 10. Tobacco abuse - ICD9: 305.1, ICD10: Z72.0 11. COPD with exacerbation (HCC) - ICD9: 491.21, ICD10: J44.1 Levaquin, prednisone; call if not improved next week Follow up in 2-3 months Sally Allison MD The documentation for this note was completed by Leesa Jeffrey Ma acting as scribe for Sally Allison MD. June 16, 2018 1:37 PM. Referring Provider: CHRISS SANON ([facility]) [[id number]] Allergies As of Date: 06/16/2018 Noted Allergy Reaction ASA (ASPIRIN) 07/19/2017 8 - GI Upset ASA (SALICYLATES) 01/29/2006 8 - GI Upset Date Reviewed: 06/16/2018 Reviewed by: Leesa Jeffrey Ma - Fully Assessed Reason for Visit: Recheck [92] Cmt: HTN, CHF, COPD and back pain Reason For Visit History Recorded Primary Visit Diagnosis:Hypertension, unspecified type [I10] Other Visit Diagnoses:Chronic obstructive pulmonary disease, unspecified COPD type (HCC) [J44.9] PETE treated with BiPAP [G47.33] AICD (automatic cardioverter/defibrillator) present [Z95.810] Nonischemic cardiomyopathy (HCC) [I42.8] Atrial fibrillation with rapid ventricular response (HCC) [I48.91] Anemia, unspecified type [D64.9] Low back pain without sciatica, unspecified back pain laterality, unspecified chronicity [M54.5] Urethral stricture, unspecified stricture type [N35.9] Tobacco abuse [Z72.0] COPD with exacerbation (HCC) [J44.1] Order(s):predniSONE (DELTASONE) 20 mg tabletTake 2 tablets by mouth once daily.Disp: 10 tabletRfl: 0 CBC [SQCBC] Order #: [id number] FUTURE VITAMIN B12 BLOOD [SQB12] Order #: [id number] FUTURE FOLATE SERUM [SQSERFOL] Order #: [id number] FUTURE levoFLOXacin (LEVAQUIN) 500 mg tabletTake 1 tablet by mouth once daily for 7 days.Disp: 7 tabletRfl: 0 Prescriptions as of 06/16/2018 Sig: LISINOPRIL 20 MG TABLET Take 0.5 tablets by mouth onc* HYDRALAZINE 50 MG TABLET Take 0.5 tablets by mouth thr* FERROUS SULFATE 325 MG (65 MG* Take 1 tablet by mouth daily * NYSTATIN 100,000 UNIT/ML ORAL* Take 5 mL by mouth three time* CARVEDILOL 25 MG TABLET TAKE 1 TABLET BY MOUTH TWICE * DIGOXIN 250 MCG TABLET Take 1 tablet by mouth once d* ELIQUIS 5 MG TABLET TAKE 1 TABLET BY MOUTH TWICE * FUROSEMIDE 20 MG TABLET TAKE 1 TABLET BY MOUTH TWICE * NITROFURANTOIN MONOHYDRATE AND * Take 1 capsule by mouth once * FINASTERIDE 5 MG TABLET Take 1 tablet by mouth once d* MEMANTINE 28 MG CAPSULE SPRIN* Take 1 capsule by mouth once * POTASSIUM CHLORIDE ER 10 MEQ * Take 1 tablet by mouth daily * ISOSORBIDE MONONITRATE ER 30 * TAKE 1 TABLET BY MOUTH EVERY * SPIRONOLACTONE 25 MG TABLET Take 1 tablet by mouth once d* BIPAP LEVALBUTEROL 0.63 MG/3 ML BIBIANA* Use 3 mL via nebulizer every * NITROGLYCERIN 0.4 MG SUBLINGU* Dissolve 1 tablet under the t* PREDNISONE 10 MG TABLET Take 10 mg by mouth once asad* COMPOUNDED PRESCRIPTION [facility]* COMPOUNDED PRESCRIPTION Oxygen 3 liters CYANOCOBALAMIN (VIT B-12) 1,0* Dissolve 1 tablet under the t* PREDNISONE 20 MG TABLET Take 2 tablets by mouth once * LEVOFLOXACIN 500 MG TABLET Take 1 tablet by mouth once d* Problem List As Of Date 06/16/2018 Noted Resolved Hypertension [I10] INVALID FOR* Lumbar disc disease [M51.9] INVALID FOR* Cervical disc disease [M50.90] INVALID FOR* COPD (chronic obstructive pulmonary disease) [J*INVALID FOR* BPH (benign prostatic hyperplasia) [N40.0] INVALID FOR* Urethral stricture [N35.9] INVALID FOR* Difficulty voiding [R39.198] INVALID FOR* Frequency of urination [R35.0] INVALID FOR* Urinary retention [R33.9] INVALID FOR* Anemia [D64.9] INVALID FOR* Tobacco abuse [Z72.0] INVALID FOR* Nonischemic cardiomyopathy (HCC) [I42.8] INVALID FOR* Atrial fibrillation with rapid ventricular resp*INVALID FOR* AICD (automatic cardioverter/defibrillator) pre*INVALID FOR* Spontaneous pneumothorax [J93.83] INVALID FOR* Swallowing difficulty [R13.10] INVALID FOR* More... PETE treated with BiPAP [G47.33] INVALID FOR* More... Prescriptions ordered this encounter Disp Refills Start End PREDNISONE 20 MG TABLET 10 t* 0 06/16/2018 Route: ORAL Sig: Take 2 tablets by mouth once daily. LEVOFLOXACIN 500 MG TABLET 7 ta* 0 06/16/2018 06/23/2018 Route: ORAL Sig: Take 1 tablet by mouth once daily for 7 days. Medications Discontinued During This Encounter budesonide (PULMICORT FLEXHALER) 180* 3 In* 5 09/02/2016 06/16/2018 Class: Med Update Route: INHALATION Sig: Inhale 2 Puffs as instructed twice daily. Disc: Reason for discontinue is not on file. lisinopril (ZESTRIL, PRINIVIL) 20 mg* 90 t* 0 04/12/2018 06/16/2018 Cmt: MED SYNC PT..PLEASE SEND NEW RX SO WE HAVE ENOUGH FOR A 90 D.S. 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 Sig: Take 1 tablet by mouth once daily. Disc: Reason for discontinue is not on file. Disposition: Return in about 2 months (around 08/17/2018). Follow-up and Disposition History Recorded Encounter Status:Closed by SALLY ALLISON MD on 06/17/18 ANN-MARIEJENNYFER Observed: 06/13/2018 Status: COMPLETED Source: [place] 12:00 AM [facility] REPOSITORY Patient Outreach (FAMPWS) JIMMY BUTLER ([id number]) 1950 M Date Time Provider Department 06/13/18 ROBBIN BIRD) FAMPWS During your visit today, we recorded the following information about you: Tricia Siegel RN 06/17/2018 5:32 PM Signed PRIMARY CARE COORDINATION QUICK NOTE Provider Action/FYI Opened in error Patient identified by name and date . Tricia Siegel RN June 17, 2018 5:32 PM Allergies As of Date: 06/13/2018 Noted Allergy Reaction ASA (ASPIRIN) 07/19/2017 8 - GI Upset ASA (SALICYLATES) 01/29/2006 8 - GI Upset Date Reviewed: 05/19/2018 Reviewed by: Nelly Carson MA - Fully Assessed Prescriptions as of 06/13/2018 Sig: HYDRALAZINE 50 MG TABLET Take 0.5 tablets by mouth thr* FERROUS SULFATE 325 MG (65 MG* Take 1 tablet by mouth daily * NYSTATIN 100,000 UNIT/ML ORAL* Take 5 mL by mouth three time* X LISINOPRIL 20 MG TABLET Take 1 tablet by mouth once d* CARVEDILOL 25 MG TABLET TAKE 1 TABLET BY MOUTH TWICE * DIGOXIN 250 MCG TABLET Take 1 tablet by mouth once d* ELIQUIS 5 MG TABLET TAKE 1 TABLET BY MOUTH TWICE * FUROSEMIDE 20 MG TABLET TAKE 1 TABLET BY MOUTH TWICE * NITROFURANTOIN MONOHYDRATE AND * Take 1 capsule by mouth once * FINASTERIDE 5 MG TABLET Take 1 tablet by mouth once d* MEMANTINE 28 MG CAPSULE SPRIN* Take 1 capsule by mouth once * POTASSIUM CHLORIDE ER 10 MEQ * Take 1 tablet by mouth daily * ISOSORBIDE MONONITRATE ER 30 * TAKE 1 TABLET BY MOUTH EVERY * SPIRONOLACTONE 25 MG TABLET Take 1 tablet by mouth once d* BIPAP LEVALBUTEROL 0.63 MG/3 ML BIBIANA* Use 3 mL via nebulizer every * NITROGLYCERIN 0.4 MG SUBLINGU* Dissolve 1 tablet under the t* X BUDESONIDE 180 MCG/ACTUATION * Inhale 2 Puffs as instructed * PREDNISONE 10 MG TABLET Take 10 mg by mouth once asad* COMPOUNDED PRESCRIPTION [facility] COMPOUNDED PRESCRIPTION Oxygen 3 liters CYANOCOBALAMIN (VIT B-12) 1,0* Dissolve 1 tablet under the t* Problem List As Of Date 06/13/2018 Noted Resolved Hypertension [I10] INVALID FOR* Lumbar disc disease [M51.9] INVALID FOR* Cervical disc disease [M50.90] INVALID FOR* COPD (chronic obstructive pulmonary disease) [J*INVALID FOR* BPH (benign prostatic hyperplasia) [N40.0] INVALID FOR* Urethral stricture [N35.9] INVALID FOR* Difficulty voiding [R39.198] INVALID FOR* Frequency of urination [R35.0] INVALID FOR* Urinary retention [R33.9] INVALID FOR* Anemia [D64.9] INVALID FOR* Tobacco abuse [Z72.0] INVALID FOR* Nonischemic cardiomyopathy (HCC) [I42.8] INVALID FOR* Atrial fibrillation with rapid ventricular resp*INVALID FOR* AICD (automatic cardioverter/defibrillator) pre*INVALID FOR* Spontaneous pneumothorax [J93.83] INVALID FOR* Swallowing difficulty [R13.10] INVALID FOR* More... PETE treated with BiPAP [G47.33] INVALID FOR* More... Encounter Status:Closed by TRICIA SIEGEL on 06/17/18 CNPN Observed: 05/23/2018 Status: COMPLETED Source: [place] 12:00 AM [facility] REPOSITORY Telephone (UROLMN) JIMMY BUTLER ([id number]) 1950 M Date Time Provider Department 05/23/18 MASON DIAZ) UROOVIDIO During your visit today, we recorded the following information about you: STEPHAN Gannon 05/23/2018 11:10 AM Signed The culture negative., no stones on CT , but enlarged prostate, we already discussed possibly doing a REZUM or Urolift , if he is interested he will need to come to [facility] for Cysto/TRUS/ Urodynamics with Shoskes then can decide if it will improve his situations Mason Diaz, MPAS, [place], PA-C Judith Mcintosh Ma 05/30/2018 9:13 AM Signed Pt has been notified. Judith Mcintosh Ma Allergies As of Date: 05/23/2018 Noted Allergy Reaction ASA (ASPIRIN) 07/19/2017 8 - GI Upset ASA (SALICYLATES) 01/29/2006 8 - GI Upset Date Reviewed: 05/19/2018 Reviewed by: Nelly Carson MA - Fully Assessed Reason for Visit: Results, Lab [1201] Prescriptions as of 05/23/2018 Sig: HYDRALAZINE 50 MG TABLET Take 0.5 tablets by mouth thr* FERROUS SULFATE 325 MG (65 MG* Take 1 tablet by mouth daily * NYSTATIN 100,000 UNIT/ML ORAL* Take 5 mL by mouth three time* LISINOPRIL 20 MG TABLET Take 1 tablet by mouth once d* CARVEDILOL 25 MG TABLET TAKE 1 TABLET BY MOUTH TWICE * DIGOXIN 250 MCG TABLET Take 1 tablet by mouth once d* ELIQUIS 5 MG TABLET TAKE 1 TABLET BY MOUTH TWICE * FUROSEMIDE 20 MG TABLET TAKE 1 TABLET BY MOUTH TWICE * NITROFURANTOIN MONOHYDRATE AND * Take 1 capsule by mouth once * FINASTERIDE 5 MG TABLET Take 1 tablet by mouth once d* MEMANTINE 28 MG CAPSULE SPRIN* Take 1 capsule by mouth once * POTASSIUM CHLORIDE ER 10 MEQ * Take 1 tablet by mouth daily * ISOSORBIDE MONONITRATE ER 30 * TAKE 1 TABLET BY MOUTH EVERY * SPIRONOLACTONE 25 MG TABLET Take 1 tablet by mouth once d* BIPAP LEVALBUTEROL 0.63 MG/3 ML BBIIANA* Use 3 mL via nebulizer every * NITROGLYCERIN 0.4 MG SUBLINGU* Dissolve 1 tablet under the t* BUDESONIDE 180 MCG/ACTUATION * Inhale 2 Puffs as instructed * PREDNISONE 10 MG TABLET Take 10 mg by mouth once asad* COMPOUNDED PRESCRIPTION [facility]* COMPOUNDED PRESCRIPTION Oxygen 3 liters CYANOCOBALAMIN (VIT B-12) 1,0* Dissolve 1 tablet under the t* Problem List As Of Date 05/23/2018 Noted Resolved Hypertension [I10] INVALID FOR* Lumbar disc disease [M51.9] INVALID FOR* Cervical disc disease [M50.90] INVALID FOR* COPD (chronic obstructive pulmonary disease) [J*INVALID FOR* BPH (benign prostatic hyperplasia) [N40.0] INVALID FOR* Urethral stricture [N35.9] INVALID FOR* Difficulty voiding [R39.198] INVALID FOR* Frequency of urination [R35.0] INVALID FOR* Urinary retention [R33.9] INVALID FOR* Anemia [D64.9] INVALID FOR* Tobacco abuse [Z72.0] INVALID FOR* Nonischemic cardiomyopathy (HCC) [I42.8] INVALID FOR* Atrial fibrillation with rapid ventricular resp*INVALID FOR* AICD (automatic cardioverter/defibrillator) pre*INVALID FOR* Spontaneous pneumothorax [J93.83] INVALID FOR* Swallowing difficulty [R13.10] INVALID FOR* More... PETE treated with BiPAP [G47.33] INVALID FOR* More... Encounter Status:Closed by MASON DIAZ PA-C on 05/23/18 PROGRESS Observed: 05/20/2018 Status: COMPLETED Source: [place] 2:57 PM [facility] REPOSITORY HNO ID: [id number] Author: Pema Rucker Ct Service: (none) Author Type: (none) Type: Progress Notes Filed: 05/20/2018 2:58 PM Note Text: Radiology Service Progress Note PATIENT NAME: Jimmy Butler DATE OF SERVICE: May 20, 2018 TIME: 2:57 PM PATIENT IDENTITY VERIFICATION COMPLETED USING TWO (2) METHODS: Patient confirmed name verbally and Date of . PATIENT GENDER DATA: Male PATIENT RELEVANT IMPLANT DATA REVIEWED: Not Applicable RADIOLOGY DEPARTMENT: CT; Exam(s) Completed: Abdomen/Pelvis PERIPHERAL IV DATA: Not applicable SIGNED BY: Pema Rucker Ct May 20, 2018 2:[address] FLANK WO IVCON Observed: 05/20/2018 Status: F Source: [place] 2:45 PM [facility] REPOSITORY * * *Final Report* * * DATE OF EXAM: May 20 2018 2:45PM [facility] 0529 - CT FLANK WO IVCON / PROCEDURE REASON: multiple diagnoses * * * * Physician Interpretation * * * * EXAMINATION: CT ABDOMEN AND PELVIS WITHOUT IV CONTRAST (Renal stone protocol) CLINICAL HISTORY: Urinary retention, BPH TECHNIQUE: Non-contrast imaging of the abdomen and pelvis was performed through the urinary tract. Study performed without intravenous or oral contrast to evaluate for urinary tract calculus. MQ: [id number] Contrast: IV contrast: None Oral contrast: None CT Radiation dose: Integrated dose-length product (DLP) for this visit = 366 mGy*cm. CT Dose Reduction Employed: mAs-kVp adjusted based on patient size-age COMPARISON: 12/11/2014 RESULT: Limitations: Unenhanced imaging is limited for the evaluation of some renal and other intra-abdominal and pelvic pathology. Urinary Tract: Right kidney and ureter: No calculus. No hydronephrosis. Multiple fluid attenuation cysts, the largest of which is in the upper pole and measures 2 cm. Left kidney and ureter: No calculus. No hydronephrosis. Fluid attenuation cysts measuring up to 1.5 cm in the upper pole. Bladder: No calculus. Bladder is markedly distended. Abdomen and Pelvis: Liver: There are a few, small low attenuation hepatic lesions. While they are too small to be evaluated, they are probably benign. Biliary: No biliary dilation. Spleen: No splenomegaly. Pancreas: Unremarkable. Adrenals: No mass. GI Tract: No bowel dilation. Lymph Nodes: No lymphadenopathy. Mesentery/peritoneum: No ascites. Vasculature: Arterial atherosclerotic calcifications with infrarenal abdominal aortic aneurysm measuring up to 4.1 x 4.4 cm (2:55), previously 3.3 x 3.2 cm. Pelvis: No mass or ascites. Enlarged prostate. Bones/Soft Tissues: Degenerative and postsurgical changes in the lumbar spine. Lower thorax: Emphysema and trace left pleural effusion. IMPRESSION: NO URINARY TRACT CALCULUS OR HYDRONEPHROSIS. DISTENDED URINARY BLADDER. CORRELATE CLINICALLY FOR BLADDER OUTLET OBSTRUCTION. ENLARGING INFRARENAL ABDOMINAL AORTIC ANEURYSM, NOW MEASURING UP TO 4.4 CM. [employer] Crewmember: KIM Transcribe Date/Time: May 20 2018 11:40P Dictated by : PHIL PALMER MD This examination was interpreted and the report reviewed and electronically signed by: PHIL PALMER MD on May 20 2018 11:49PM EST [id number] COMP METABOLIC PANEL Collected: 05/19/2018 Status: F Source: [place] 4:59 PM [facility] REPOSITORY TYPE CODE TESTS RESULT OUT OF REFERENCE UNITS RANGE LAB TP 6.3-8.0 g/dL Low Protein, Total 6.1 LAB ALB 3.9-4.9 g/dL Low Albumin 3.6 LAB CA 8.5-10.2 mg/dL Calcium, Total 8.9 LAB TBIL 0.2-1.3 mg/dL Bilirubin, Total 0.2 LAB ALKP 36-108 U/L Alkaline Phosphatase 52 LAB AST 14-40 U/L AST 21 LAB GLU 74-99 mg/dL Glucose 94 Result Comment: The [place] [employer] (ADA) provides guidance for cutoff values for fasting glucose and random glucose. The ADA defines fasting as no caloric intake for at least 8 hours. Fas ting plasma glucose results between 100 to 125 mg/dL indicate increased risk for diabetes (prediabetes). Fasting plasma glucose results greater than or equal to 126 mg/dL meet the criteria for diagnosis of diabetes. In the absence of unequivocal hyperglycemia, results should be confirmed by repeat testing. In a patient with classic symptoms of hyperglycemia or hyperglycemic crisis, random plasma glucose results greater than or equal to 200 mg/dL meet the criteria for diagnosis of diabetes. Reference: Standards of Medical Care in Diabetes 2016, [place] [employer]. Diabetes Care. 2016.39(Suppl 1). LAB BUN 9-24 mg/dL BUN 21 LAB CRET 0.73-1.22 mg/dL Creatinine 1.17 LAB NA 136-144 mmol/L Sodium 143 LAB K 3.7-5.1 mmol/L Potassium 4.3 LAB CL 97-105 mmol/L Low Chloride 95 LAB CO2 22-30 mmol/L CO2 High 39 LAB AGAP 9-18 mmol/L Anion Gap 9 LAB ALT 10-54 U/L ALT 12 LAB GFRAA eGFR- Amer. >60 LAB GFRNAA . eGFR-All Other Races >60 Result Comment: eGFR (Estimated GFR) Units of measure: mL/min/1.73 meters squared eGFR is derived from the reexpressed MDRD Study equation using the following parameters: serum creatinine, age, gender and race. The creatinine assay has been calibrated to be traceable to IDMS. An eGFR <60 mL/min/1.73m2 for >3 months is consistent with chronic kidney disease. Refer to KDOQI guidelines for clinical interpretation. In patients with unstable renal function, e.g. those with acute kidney injury, the eGFR may not accurately reflect actual GFR. Performed By: #### CMP, CBCDIF, FERR, IRON #### [facility] [address] [place], [place] [address] CBC AND DIFFERENTIAL Collected: 05/19/2018 Status: F Source: [place] 4:59 PM [facility] REPOSITORY TYPE CODE TESTS RESULT OUT OF REFERENCE UNITS RANGE LAB WBC 3.70-11.00 k/uL WBC 4.12 LAB RBC 4.20-6.00 m/uL Low RBC 2.98 LAB HGB 13.0-17.0 g/dL Low Hemoglobin 8.1 LAB HCT 39.0-51.0 % Low Hematocrit 29.4 LAB MCV 80.0-100.0 fL MCV 98.7 LAB MCH 26.0-34.0 pG MCH 27.2 LAB MCHC 30.5-36.0 g/dL Low MCHC 27.6 LAB RDWCV 11.5-15.0 % RDW-CV High 15.4 LAB PLTCT 150-400 k/uL Low Platelet Count 134 LAB MPV 9.0-12.7 fL MPV 10.5 LAB ANEUT % Neut% 71.3 LAB AANEUT 1.45-7.50 k/uL Abs Neut 2.94 LAB ALYMP % Lymph% 17.5 LAB AALYMP 1.00-4.00 k/uL Low Abs Lymph 0.72 LAB AMONO % [place]% 10.7 LAB AAMONO <0.87 k/uL Abs [place] 0.44 LAB AEOS % Eosin% 0.5 LAB AAEOS <0.46 k/uL Abs Eosin <0.03 LAB ABASO % Baso% 0.0 LAB AABASO <0.11 k/uL Abs Baso <0.03 LAB AUNRBC 0 /100 WBC NRBCs High 0.5 LAB ABNRBC <0.01 k/uL Absolute High nRBC 0.02 LAB DTYP DTYPE Auto Diff Performed By: #### CMP, CBCDIF, FERR, IRON #### [facility] [employer] [facility] [address], [place] [address] FERRITIN Collected: 05/19/2018 Status: F Source: [place] 4:59 PM [facility] REPOSITORY TYPE CODE TESTS RESULT OUT OF REFERENCE UNITS RANGE LAB FERR 30.3-565.7 ng/mL Ferritin 116.9 Performed By: #### CMP, CBCDIF, FERR, IRON #### [facility] [employer] [facility] [address] [place], [place] [address] IRON AND TIBC Collected: 05/19/2018 Status: F Source: [place] 4:59 PM [facility] REPOSITORY TYPE CODE TESTS RESULT OUT OF REFERENCE UNITS RANGE LAB IRN 41-186 ug/dL Iron 79 LAB TIBC 232-386 ug/dL TIBC 308 LAB SAT 15-57 % Transferrin Saturatn 26 Performed By: #### CMP, CBCDIF, FERR, IRON #### [facility] [facility] [address] [place], [place] [address] PROGRESS Observed: 05/19/2018 Status: COMPLETED Source: [place] 4:21 PM [facility] REPOSITORY HNO ID: [id number] Author: Jarett Finn Service: (none) Author Type: Physician Type: Progress Notes Filed: 05/19/2018 5:04 PM Note Text: PERTINENT CARDIAC HISTORY Cardiomyopathy - post viral HTN NSVT - ICD 2014 CHF - systolic Silicosis PAF ADHERENCE TO GUIDELINES ANDREA-I or ARB for HF with prior LVEF<40 (NQF 0081) - met ASA or Plavix for ASHD (NQF 0067) - N/A Beta kade for ASHD with prior [place] or prior LVEF<40 (NQF 0070) - N/A Beta kade for HF with prior LVEF<40 (NQF 0083) - met ANDREA-I or ARB for ASHD with DM or prior LVEF<40 (NQF 0066) - N/A Statin therapy for ASHD or FHL or DM - N/A BMI documented and plan if >25 (NQF 0421) - lifestyle recommendation form Tobacco use screening and referral (NQF 0028) - lifestyle recommendation form Recommendation for whole food, plant based diet - lifestyle recommendation form CLINICAL IMPRESSION/PLAN: Jimmy Butler has stable, nonischemic cardiomyopathy. Device check has been scheduled for [place]. His blood pressure is borderline low. He's been advised to decrease hydralazine to 25 milligrams 3 times daily and update me with vital signs in one week. Basic profile will be checked and likely potassium will be restarted. We may need to increase Aldactone if possible for better control of his peripheral edema. I will see him in 4 months or as needed. Written and verbal health teaching given to patient, patient verbalizes understanding and agrees with treatment plan. DIAGNOSIS FOR VISIT: Cardiomyopathy PAF HISTORY OF PRESENT ILLNESS Jimmy Butler returns for follow-up of multiple cardiac issues, as noted above. He had a recent hospitalization for decompensated COPD. He had short runs of SVT. There were no changes made in his medication. His blood pressure has been running borderline low. He was in the emergency department last week and potassium was discontinued as his potassium was 5.9. It has never been high before. He's had no recent chest discomfort. Exercise tolerance is poor but stable. He's had slightly more pedal edema. He denies syncope, palpitations, TIAs, amaurosis and claudication. ALLERGIES: ALLERGIES Allergen Reactions - Asa [Aspirin] GI Upset - Asa [Salicylates] GI Upset CURRENT OUTPATIENT MEDICATIONS: ferrous sulfate 325 mg (65 mg iron) tablet Take 1 tablet by mouth daily with breakfast. nystatin (MYCOSTATIN) 100,000 unit/mL susp Take 5 mL by mouth three times daily. lisinopril (ZESTRIL, PRINIVIL) 20 mg tablet Take 1 tablet by mouth once daily. carvedilol (COREG) 25 mg tablet TAKE 1 TABLET BY MOUTH TWICE DAILY WITH MEALS digoxin (LANOXIN) 250 mcg tablet Take 1 tablet by mouth once daily. ELIQUIS 5 mg tab(s) TAKE 1 TABLET BY MOUTH TWICE DAILY furosemide (LASIX) 20 mg tablet TAKE 1 TABLET BY MOUTH TWICE DAILY nitrofurantoin monohydrate and macrocrystal (MACROBID) 100 mg capsule Take 1 capsule by mouth once daily. finasteride (PROSCAR) 5 mg tablet Take 1 tablet by mouth once daily. memantine XR (NAMENDA XR) 28 mg CSpX Take 1 capsule by mouth once daily. potassium chloride (K-TAB) 10 mEq tablet Take 1 tablet by mouth daily with breakfast. isosorbide mononitrate ER (IMDUR) 30 mg 24 hr tablet TAKE 1 TABLET BY MOUTH EVERY DAY hydrALAZINE (APRESOLINE) 50 mg tablet Take 1 tablet by mouth three times daily. spironolactone (ALDACTONE) 25 mg tablet Take 1 tablet by mouth once daily. BIPAP levalbuterol (XOPENEX) 0.63 mg/3 mL nebulizer solution Use 3 mL via nebulizer every 6 hours as needed for Wheezing/Shortness of Breath (for wheezing). Dx: J44.9 nitroglycerin sublingual (NITROQUICK) 0.4 mg SL tablet Dissolve 1 tablet under the tongue as needed. FOR CHEST PAIN. IF NO RELIEF CALL 911 budesonide (PULMICORT FLEXHALER) 180 mcg/actuation aepb Inhale 2 Puffs as instructed twice daily. predniSONE (DELTASONE) 10 mg tablet Take 10 mg by mouth once daily. COMPOUNDED PRESCRIPTION [facility] for home BP monitoring COMPOUNDED PRESCRIPTION Oxygen 3 liters Cyanocobalamin (VITAMIN B-12) 1,000 mcg subl Dissolve 1 tablet under the tongue once daily. PHYSICAL EXAMINATION: VITAL SIGNS: BP 89/55 Pulse 79 Chest: There are end inspiratory rales. Expiratory prolongation is noted. There are diminished.. Trachea is midline. Air entry is equal. Cardiac: Regular rhythm. S1 and S2 are normal. PMI is laterally displaced. There is a soft murmur of tricuspid insufficiency. Carotids are brisk without bruits. JVP is less than 10 cm. Abdomen: Soft and nontender. There are no pulsatile masses or bruits. No liver enlargement. Bowel sounds are active. Extremities: 1 plus pedal edema. Pulses are diminished but symmetrical. EKG from the hospital shows no change. Recent labs reviewed. Renal function is normal. Electronically Signed: Jarett Finn MD May 19, 2018 4:21 PM CC: Sally Allison MD CNOV Observed: 05/19/2018 Status: COMPLETED Source: [place] 3:45 PM [facility] REPOSITORY Office Visit (CAWSTR) JIMMY BUTLER ([id number]) 1950 M Date Time Provider Department 05/19/18 3:45 PM JARETT FINNWSTR During your visit today, we recorded the following information about you: Pulse Blood pressure 79/minute 89/55 Jarett Finn MD 05/19/2018 5:04 PM Signed PERTINENT CARDIAC HISTORY Cardiomyopathy - post viral HTN NSVT - ICD 2014 CHF - systolic Silicosis PAF ADHERENCE TO GUIDELINES ANDREA-I or ARB for HF with prior LVEF<40 (NQF 0081) - met ASA or Plavix for ASHD (NQF 0067) - N/A Beta kade for ASHD with prior [place] or prior LVEF<40 (NQF 0070) - N/A Beta kade for HF with prior LVEF<40 (NQF 0083) - met ANDREA-I or ARB for ASHD with DM or prior LVEF<40 (NQF 0066) - N/A Statin therapy for ASHD or FHL or DM - N/A BMI documented and plan if >25 (NQF 0421) - lifestyle recommendation form Tobacco use screening and referral (NQF 0028) - lifestyle recommendation form Recommendation for whole food, plant based diet - lifestyle recommendation form CLINICAL IMPRESSION/PLAN: Jimmy Butler has stable, nonischemic cardiomyopathy. Device check has been scheduled for [place]. His blood pressure is borderline low. He's been advised to decrease hydralazine to 25 milligrams 3 times daily and update me with vital signs in one week. Basic profile will be checked and likely potassium will be restarted. We may need to increase Aldactone if possible for better control of his peripheral edema. I will see him in 4 months or as needed. Written and verbal health teaching given to patient, patient verbalizes understanding and agrees with treatment plan. DIAGNOSIS FOR VISIT: Cardiomyopathy PAF HISTORY OF PRESENT ILLNESS Jimmy Butler returns for follow-up of multiple cardiac issues, as noted above. He had a recent hospitalization for decompensated COPD. He had short runs of SVT. There were no changes made in his medication. His blood pressure has been running borderline low. He was in the emergency department last week and potassium was discontinued as his potassium was 5.9. It has never been high before. He's had no recent chest discomfort. Exercise tolerance is poor but stable. He's had slightly more pedal edema. He denies syncope, palpitations, TIAs, amaurosis and claudication. ALLERGIES: ALLERGIES Allergen Reactions - Asa [Aspirin] GI Upset - Asa [Salicylates] GI Upset CURRENT OUTPATIENT MEDICATIONS: ferrous sulfate 325 mg (65 mg iron) tablet Take 1 tablet by mouth daily with breakfast. nystatin (MYCOSTATIN) 100,000 unit/mL susp Take 5 mL by mouth three times daily. lisinopril (ZESTRIL, PRINIVIL) 20 mg tablet Take 1 tablet by mouth once daily. carvedilol (COREG) 25 mg tablet TAKE 1 TABLET BY MOUTH TWICE DAILY WITH MEALS digoxin (LANOXIN) 250 mcg tablet Take 1 tablet by mouth once daily. ELIQUIS 5 mg tab(s) TAKE 1 TABLET BY MOUTH TWICE DAILY furosemide (LASIX) 20 mg tablet TAKE 1 TABLET BY MOUTH TWICE DAILY nitrofurantoin monohydrate and macrocrystal (MACROBID) 100 mg capsule Take 1 capsule by mouth once daily. finasteride (PROSCAR) 5 mg tablet Take 1 tablet by mouth once daily. memantine XR (NAMENDA XR) 28 mg CSpX Take 1 capsule by mouth once daily. potassium chloride (K-TAB) 10 mEq tablet Take 1 tablet by mouth daily with breakfast. isosorbide mononitrate ER (IMDUR) 30 mg 24 hr tablet TAKE 1 TABLET BY MOUTH EVERY DAY hydrALAZINE (APRESOLINE) 50 mg tablet Take 1 tablet by mouth three times daily. spironolactone (ALDACTONE) 25 mg tablet Take 1 tablet by mouth once daily. BIPAP levalbuterol (XOPENEX) 0.63 mg/3 mL nebulizer solution Use 3 mL via nebulizer every 6 hours as needed for Wheezing/Shortness of Breath (for wheezing). Dx: J44.9 nitroglycerin sublingual (NITROQUICK) 0.4 mg SL tablet Dissolve 1 tablet under the tongue as needed. FOR CHEST PAIN. IF NO RELIEF CALL 911 budesonide (PULMICORT FLEXHALER) 180 mcg/actuation aepb Inhale 2 Puffs as instructed twice daily. predniSONE (DELTASONE) 10 mg tablet Take 10 mg by mouth once daily. COMPOUNDED PRESCRIPTION [facility] for home BP monitoring COMPOUNDED PRESCRIPTION Oxygen 3 liters Cyanocobalamin (VITAMIN B-12) 1,000 mcg subl Dissolve 1 tablet under the tongue once daily. PHYSICAL EXAMINATION: VITAL SIGNS: BP 89/55 Pulse 79 Chest: There are end inspiratory rales. Expiratory prolongation is noted. There are diminished.. Trachea is midline. Air entry is equal. Cardiac: Regular rhythm. S1 and S2 are normal. PMI is laterally displaced. There is a soft murmur of tricuspid insufficiency. Carotids are brisk without bruits. JVP is less than 10 cm. Abdomen: Soft and nontender. There are no pulsatile masses or bruits. No liver enlargement. Bowel sounds are active. Extremities: 1 plus pedal edema. Pulses are diminished but symmetrical. EKG from the hospital shows no change. Recent labs reviewed. Renal function is normal. Electronically Signed: Jarett Finn MD May 19, 2018 4:21 PM CC: MD Jarett Murray MD 05/19/2018 4:22 PM Signed LIFESTYLE CHANGE A healthy lifestyle is the most important component of your overall treatment plan. Please give serious thought to the following areas and commit to making oysterman changes. EAT A WHOLE FOOD, PLANT BASED DIET The nutrition your body gets is more important than the medicine you take. What matters most is the overall way you eat. We encourage you to minimize the use of animal products (which include dairy and all meats except fatty fish) and use whole, unprocessed plant foods to provide your protein, vitamins and other nutrients. We have a lot of information to share with you on this topic. This is not a diet. It is a way of life that you will keep with you. EXERCISE REGULARLY It is not important to spend hours in the gym, lifting weights and perspiring heavily. A total of 2-3 hours per week of aerobic (causing you to be moderately short of breath) exercise is sufficient to improve your health. Talk to us before you begin a new exercise program, if you have heart disease or experience shortness of breath or chest pain. REDUCE STRESS Chronic emotional and physical stress leads to disease. Ways of reducing stress include meditation, visualization, prayer, yoga and other forms of relaxation therapy. Consistency is the shabazz. Find a technique that works for you and do it every day. CULTIVATE RELATIONSHIPS Loneliness and isolation have a major negative impact on health. Seek out others who can love, care for and nurture you. Avoid hurtful relationships. MAINTAIN IDEAL BODY WEIGHT The best way to do this is to do all the things above. Our bodies naturally find the right weight if we keep moving and feed ourselves the right food. If your BMI is greater than 25, we strongly recommend a referral to a weight management program. Please speak to us or your family physician about available programs. AVOID NICOTINE IN ALL FORMS This includes all tobacco products, whether chewed, smoked, vaped, or rubbed on the skin. Smoking cessation programs, which can make use of tobacco substitutes, medications to suppress cravings and behavior management, are available. Please contact your family physician about programs in your area. Referring Provider: JARETT FINN [[id number]] Allergies As of Date: 05/19/2018 Noted Allergy Reaction ASA (ASPIRIN) 07/19/2017 8 - GI Upset ASA (SALICYLATES) 01/29/2006 8 - GI Upset Date Reviewed: 05/19/2018 Reviewed by: Nelly Carson MA - Fully Assessed Primary Visit Diagnosis:Cardiomyopathy, nonischemic (HCC) [I42.8] Other Visit Diagnosis:PAF (paroxysmal atrial fibrillation) (HCC) [I48.0] Order(s):hydrALAZINE (APRESOLINE) 50 mg tabletTake 0.5 tablets by mouth three times daily.Disp: 270 tabletRfl: 3 BASIC METABOLIC PNL [SQBMP] Order #: [id number] FUTURE Prescriptions as of 05/19/2018 Sig: HYDRALAZINE 50 MG TABLET Take 0.5 tablets by mouth thr* FERROUS SULFATE 325 MG (65 MG* Take 1 tablet by mouth daily * NYSTATIN 100,000 UNIT/ML ORAL* Take 5 mL by mouth three time* LISINOPRIL 20 MG TABLET Take 1 tablet by mouth once d* CARVEDILOL 25 MG TABLET TAKE 1 TABLET BY MOUTH TWICE * DIGOXIN 250 MCG TABLET Take 1 tablet by mouth once d* ELIQUIS 5 MG TABLET TAKE 1 TABLET BY MOUTH TWICE * FUROSEMIDE 20 MG TABLET TAKE 1 TABLET BY MOUTH TWICE * NITROFURANTOIN MONOHYDRATE AND * Take 1 capsule by mouth once * FINASTERIDE 5 MG TABLET Take 1 tablet by mouth once d* MEMANTINE 28 MG CAPSULE SPRIN* Take 1 capsule by mouth once * POTASSIUM CHLORIDE ER 10 MEQ * Take 1 tablet by mouth daily * ISOSORBIDE MONONITRATE ER 30 * TAKE 1 TABLET BY MOUTH EVERY * SPIRONOLACTONE 25 MG TABLET Take 1 tablet by mouth once d* BIPAP LEVALBUTEROL 0.63 MG/3 ML BIBIANA* Use 3 mL via nebulizer every * NITROGLYCERIN 0.4 MG SUBLINGU* Dissolve 1 tablet under the t* BUDESONIDE 180 MCG/ACTUATION * Inhale 2 Puffs as instructed * PREDNISONE 10 MG TABLET Take 10 mg by mouth once asad* COMPOUNDED PRESCRIPTION [facility]* COMPOUNDED PRESCRIPTION Oxygen 3 liters CYANOCOBALAMIN (VIT B-12) 1,0* Dissolve 1 tablet under the t* Problem List As Of Date 05/19/2018 Noted Resolved Hypertension [I10] INVALID FOR* Lumbar disc disease [M51.9] INVALID FOR* Cervical disc disease [M50.90] INVALID FOR* COPD (chronic obstructive pulmonary disease) [J*INVALID FOR* BPH (benign prostatic hyperplasia) [N40.0] INVALID FOR* Urethral stricture [N35.9] INVALID FOR* Difficulty voiding [R39.198] INVALID FOR* Frequency of urination [R35.0] INVALID FOR* Urinary retention [R33.9] INVALID FOR* Anemia [D64.9] INVALID FOR* Tobacco abuse [Z72.0] INVALID FOR* Nonischemic cardiomyopathy (HCC) [I42.8] INVALID FOR* Atrial fibrillation with rapid ventricular resp*INVALID FOR* AICD (automatic cardioverter/defibrillator) pre*INVALID FOR* Spontaneous pneumothorax [J93.83] INVALID FOR* Swallowing difficulty [R13.10] INVALID FOR* More... PETE treated with BiPAP [G47.33] INVALID FOR* More... Other instructions from your clinician: LIFESTYLE CHANGE A healthy lifestyle is the most important component of your overall treatment plan. Please give serious thought to the following areas and commit to making oysterman changes. EAT A WHOLE FOOD, PLANT BASED DIET The nutrition your body gets is more important than the medicine you take. What matters most is the overall way you eat. We encourage you to minimize the use of animal products (which include dairy and all meats except fatty fish) and use whole, unprocessed plant foods to provide your protein, vitamins and other nutrients. We have a lot of information to share with you on this topic. This is not a diet. It is a way of life that you will keep with you. EXERCISE REGULARLY It is not important to spend hours in the gym, lifting weights and perspiring heavily. A total of 2-3 hours per week of aerobic (causing you to be moderately short of breath) exercise is sufficient to improve your health. Talk to us before you begin a new exercise program, if you have heart disease or experience shortness of breath or chest pain. REDUCE STRESS Chronic emotional and physical stress leads to disease. Ways of reducing stress include meditation, visualization, prayer, yoga and other forms of relaxation therapy. Consistency is the shabazz. Find a technique that works for you and do it every day. CULTIVATE RELATIONSHIPS Loneliness and isolation have a major negative impact on health. Seek out others who can love, care for and nurture you. Avoid hurtful relationships. MAINTAIN IDEAL BODY WEIGHT The best way to do this is to do all the things above. Our bodies naturally find the right weight if we keep moving and feed ourselves the right food. If your BMI is greater than 25, we strongly recommend a referral to a weight management program. Please speak to us or your family physician about available programs. AVOID NICOTINE IN ALL FORMS This includes all tobacco products, whether chewed, smoked, vaped, or rubbed on the skin. Smoking cessation programs, which can make use of tobacco substitutes, medications to suppress cravings and behavior management, are available. Please contact your family physician about programs in your area. Prescriptions ordered this encounter Disp Refills Start End HYDRALAZINE 50 MG TABLET 270 * 3 05/19/2018 Class: Med Update Route: ORAL Sig: Take 0.5 tablets by mouth three times daily. Medications Discontinued During This Encounter hydrALAZINE (APRESOLINE) 50 mg tablet 270 * 3 12/14/2017 05/19/2018 Sig: Take 1 tablet by mouth three times daily. Disc: Reason for discontinue is not on file. Encounter Status:Closed by JARETT FINN MD on 05/19/18 PROGRESS Observed: 05/18/2018 Status: COMPLETED Source: [place] 6:31 PM [facility] REPOSITORY HNO ID: [id number] Author: Mason Mason) Miles Service: (none) Author Type: Physician Electrical Engineering Teacher Type: Progress Notes Filed: 05/18/2018 6:33 PM Note Text: CC : BPH and Urethral Stricture HPI: Patient here forfollow-up. He has had 2 UTIboth treated with stiil +ve cultures but asymptomatic He is tollerating Proscar well. He may need urethral dilation in the near future if he starts to have worsening LUTS 2 week post treat urine culture CT Flank - R/O Stones If +ve Urine Culture - may need ampicillin since Macrobid not working well LAB RESULTS: Results for orders placed or performed in visit on 04/26/18 URINE CULTURE Result Value Ref Range Specimen Request Presurgical Sterilization Specimen received in preservative Culture (A) >=100,000 CFU/ml Enterococcus faecalis Cephalosporins, clindamycin, and TMP-SMX are not effective for the treatment of enterococcal infections. Culture Testing or reporting of additional agents was requested. Susceptibility Enterococcus faecalis - MINIMUM INHIBITORY CONCENTRATION(VITEK) Ampicillin <=2 Susceptible Nitrofurantoin 32 Susceptible Vancomycin 1 Susceptible Fosfomycin* 128 Intermediate * The FDA indication for fosfomycin tromethamine is uncomplicated UTIs caused by E. faecalis and E. coli only. Urine Culture sent today Physical Exam: PHYSICAL EXAMINATION: Blood pressure 118/72, pulse 68, temperature 36.4 ?C (97.5 ?F), temperature source Temporal Artery. General appearance: cooperative, pleasant, no acute distress, alert and oriented, well hydrated, well nourished male. IMPRESSION: Encounter Diagnosis ICD-10-CM 1. Urinary retention R33.9 UA DIP, URINE (POC) CT FLANK WO IVCON URINE CULTURE CREATININE BLD 2. Urinary tract infection without hematuria, site unspecified N39.0 UA DIP, URINE (POC) CT FLANK WO IVCON URINE CULTURE PLAN: > Continue Proscar 5 mg >If patient has hematuria or increase in NTF he will make a sooner appointment for flexible cystoscopy > Urine Culture > Call pt with results CT Flank - R/O Stones Urine Culture - may need ampicillin or Augmentin if Macrobid not working well Mason Diaz, MPAS, [place], PA-C Observed: 05/18/2018 Status: F Source: [place] URINE CULTURE 3:30 PM [facility] REPOSITORY Sp. Request/Comment: - Presurgical Sterilization Specimen received in preservative Culture Result - <1,000 CFU/ml Normal Urogenital ramirez: --> ABNORMAL ALERT Coagulase negative Staphylococcus species --> ABNORMAL ALERT Performed By: #### URCUL #### [facility] [address] [place] [address] CNOV Observed: 05/18/2018 Status: COMPLETED Source: [place] 2:15 PM [facility] REPOSITORY Office Visit (UROLWS) JIMMY BUTLER ([id number]) 1950 M Date Time Provider Department 05/18/18 2:15 PM MASON DIAZ) UROLWS During your visit today, we recorded the following information about you: Temperature Pulse Blood pressure 97.5 degrees 68/minute 118/72 STEPHAN Gannon 05/18/2018 6:33 PM Signed CC : BPH and Urethral Stricture HPI: Patient here forfollow-up. He has had 2 UTIboth treated with stiil +ve cultures but asymptomatic He is tollerating Proscar well. He may need urethral dilation in the near future if he starts to have worsening LUTS 2 week post treat urine culture CT Flank - R/O Stones If +ve Urine Culture - may need ampicillin since Macrobid not working well LAB RESULTS: Results for orders placed or performed in visit on 04/26/18 URINE CULTURE Result Value Ref Range Specimen Request Presurgical Sterilization Specimen received in preservative Culture (A) >=100,000 CFU/ml Enterococcus faecalis Cephalosporins, clindamycin, and TMP-SMX are not effective for the treatment of enterococcal infections. Culture Testing or reporting of additional agents was requested. Susceptibility Enterococcus faecalis - MINIMUM INHIBITORY CONCENTRATION(VITEK) Ampicillin <=2 Susceptible Nitrofurantoin 32 Susceptible Vancomycin 1 Susceptible Fosfomycin* 128 Intermediate * The FDA indication for fosfomycin tromethamine is uncomplicated UTIs caused by E. faecalis and E. coli only. Urine Culture sent today Physical Exam: PHYSICAL EXAMINATION: Blood pressure 118/72, pulse 68, temperature 36.4 ?C (97.5 ?F), temperature source Temporal Artery. General appearance: cooperative, pleasant, no acute distress, alert and oriented, well hydrated, well nourished male. IMPRESSION: Encounter Diagnosis ICD-10-CM 1. Urinary retention R33.9 UA DIP, URINE (POC) CT FLANK WO IVCON URINE CULTURE CREATININE BLD 2. Urinary tract infection without hematuria, site unspecified N39.0 UA DIP, URINE (POC) CT FLANK WO IVCON URINE CULTURE PLAN: > Continue Proscar 5 mg >If patient has hematuria or increase in NTF he will make a sooner appointment for flexible cystoscopy > Urine Culture > Call pt with results CT Flank - R/O Stones Urine Culture - may need ampicillin or Augmentin if Macrobid not working well Mason Diaz, TRISH, [place], PA-C Referring Provider: SELF [200] Allergies As of Date: 05/18/2018 Noted Allergy Reaction ASA (ASPIRIN) 07/19/2017 8 - GI Upset ASA (SALICYLATES) 01/29/2006 8 - GI Upset Date Reviewed: 05/18/2018 Reviewed by: Pema Rucker Ct - Fully Assessed Reason for Visit: Follow Up [171] UTI [116] Back Pain [12] Reason For Visit History Recorded Primary Visit Diagnosis:Urinary retention [R33.9] Other Visit Diagnosis:Urinary tract infection without hematuria, site unspecified [N39.0] Order(s):UA DIP, URINE (POC) [[id number]] Order #: [id number] CT FLANK WO IVCON [[id number]] Order #: [id number]. #:[id number] URINE CULTURE [SQURCUL] Order #: [id number]. #:[id number] CREATININE BLD [SQCRET] Order #: [id number] Prescriptions as of 05/18/2018 Sig: FERROUS SULFATE 325 MG (65 MG* Take 1 tablet by mouth daily * NYSTATIN 100,000 UNIT/ML ORAL* Take 5 mL by mouth three time* LISINOPRIL 20 MG TABLET Take 1 tablet by mouth once d* CARVEDILOL 25 MG TABLET TAKE 1 TABLET BY MOUTH TWICE * DIGOXIN 250 MCG TABLET Take 1 tablet by mouth once d* ELIQUIS 5 MG TABLET TAKE 1 TABLET BY MOUTH TWICE * FUROSEMIDE 20 MG TABLET TAKE 1 TABLET BY MOUTH TWICE * NITROFURANTOIN MONOHYDRATE AND * Take 1 capsule by mouth once * FINASTERIDE 5 MG TABLET Take 1 tablet by mouth once d* MEMANTINE 28 MG CAPSULE SPRIN* Take 1 capsule by mouth once * POTASSIUM CHLORIDE ER 10 MEQ * Take 1 tablet by mouth daily * ISOSORBIDE MONONITRATE ER 30 * TAKE 1 TABLET BY MOUTH EVERY * X HYDRALAZINE 50 MG TABLET Take 1 tablet by mouth three * SPIRONOLACTONE 25 MG TABLET Take 1 tablet by mouth once d* BIPAP LEVALBUTEROL 0.63 MG/3 ML BIBIANA* Use 3 mL via nebulizer every * NITROGLYCERIN 0.4 MG SUBLINGU* Dissolve 1 tablet under the t* BUDESONIDE 180 MCG/ACTUATION * Inhale 2 Puffs as instructed * PREDNISONE 10 MG TABLET Take 10 mg by mouth once asad* COMPOUNDED PRESCRIPTION [facility]* COMPOUNDED PRESCRIPTION Oxygen 3 liters CYANOCOBALAMIN (VIT B-12) 1,0* Dissolve 1 tablet under the t* Problem List As Of Date 05/18/2018 Noted Resolved Hypertension [I10] INVALID FOR* Lumbar disc disease [M51.9] INVALID FOR* Cervical disc disease [M50.90] INVALID FOR* COPD (chronic obstructive pulmonary disease) [J*INVALID FOR* BPH (benign prostatic hyperplasia) [N40.0] INVALID FOR* Urethral stricture [N35.9] INVALID FOR* Difficulty voiding [R39.198] INVALID FOR* Frequency of urination [R35.0] INVALID FOR* Urinary retention [R33.9] INVALID FOR* Anemia [D64.9] INVALID FOR* Tobacco abuse [Z72.0] INVALID FOR* Nonischemic cardiomyopathy (HCC) [I42.8] INVALID FOR* Atrial fibrillation with rapid ventricular resp*INVALID FOR* AICD (automatic cardioverter/defibrillator) pre*INVALID FOR* Spontaneous pneumothorax [J93.83] INVALID FOR* Swallowing difficulty [R13.10] INVALID FOR* More... PETE treated with BiPAP [G47.33] INVALID FOR* More... LOS history recorded Follow-up and Disposition History Recorded Encounter Status:Closed by MASON DIAZ PA-C on 05/18/18 12 LEAD ELECTROCARDIOGRAM Observed: 05/16/2018 Status: F Source: [place] 2:47 PM [facility] REPOSITORY [facility] Cardiovascular Services [address] [address] 12 Lead EKG 05/12/18 1038 MR#: [id number] Acct: [id number] Name: JIMMY BUTLER Rep #: [id number] : 1950 67 From: Joseph Newton MD Attending Dr: Status: DEP ER Ordering Dr: Alli Hratman MD Date: 05/12/18 Location: ED Sex: M AA Admitted: Test Reason : SOB Blood Pressure : / mmHG Vent. Rate : 106 BPM Atrial Rate : 106 BPM P-R Int : 156 ms QRS Dur : 108 ms QT Int : 334 ms P-R-T Axes : 052 -37 091 degrees QTc Int : 443 ms Sinus tachycardia with Premature ventricular complexes or Fusion complexes Left axis deviation Nonspecific ST and T wave abnormality Abnormal ECG Confirmed by JOSEPH NEWTON ([id number]), news copy editor JOANNE BEE ([id number]) on 05/16/2018 2:46:38 PM Referred By: Leo Londono Confirmed By:JOSEPH NEWTON 05/16/18 1446 Date Joseph Newton MD CC: MD Zia Hartman; Sally Allison MD Signed DISCHARGE SUMMARY Observed: 05/16/2018 Status: F Source: [place] 12:40 PM [facility] REPOSITORY [facility] Medical Records Department [address] [place] [address] Discharge Summary 05/04/18 1100 MR#: [id number] Acct: [id number] Name: JIMMY BUTLER Rep #: [id number] : 1950 67 From: Deja EASLEYC PCP: Sally Allison MD Status: DIS IN Y Location: [place] [address]1 ADDENDUM by Shanelle Ca MD on 05/16/18 at 1240 Code Visit Documentation clarification: 1. Pneumonia was ruled out in this admission with repeat chest x-ray on 05/02/18, even though initial CXR was suggestive. 2. Patient did not have moderate-severe protein energy malnutrition, BMI was 22.8, fur sewer's note supports this with diagnosis of inadequate po intake 05/16/18 1240 <Electronically signed by Shanelle Ca MD> Date Shanelle Ca MD cc: [employer]-C Deja Joseph; Shanelle Ca MD; Sally Allison MD * Signed <Deja Joseph - Last Filed: 05/04/18 11:13> Discharge Date and Diagnosis Date of Admission: 03/19/17 Date of Discharge: 05/04/18 - Primary Discharge Diagnosis Active and Suspected Problems (Last Updated 05/04/18 @ 09:00 by Nola Guzman NP-C) 1. Acute on chronic combined respiratory failure secondary to presumed acute COPD exacerbation stage IV - Secondary Discharge Diagnosis Chronic Problems (Last Updated 05/04/18 @ 09:00 by Nola Guzman NP-C) PETE (obstructive sleep apnea) (Chronic) Hypersomnia (Chronic) Runny nose (Chronic) PETE (obstructive sleep apnea) (Chronic) Stage 4 very severe COPD by GOLD classification (Chronic) Tobacco abuse (Chronic) Shortness of breath (Chronic) Hypercapnic respiratory failure, chronic (Chronic) Acute and chronic respiratory failure with hypercapnia (Chronic) Paroxysmal atrial fibrillation (Chronic) Chronic respiratory failure (Chronic) Silicosis (Chronic) History of implantable cardioverter-defibrillator (ICD) placement (Chronic) CHF (congestive heart failure) (Chronic) Hypertension (Chronic) Hospital Course and Treatment Imaging Results: Diagnostic Data Chest X-Ray 05/02/18 05:55 IMPRESSION: Stable chest, no acute cardiopulmonary disease. COPD. Electronically Signed: Arpan Sabillon MD at 7:23 EDT , Service support , Dr. Arnett- Pulmonary Medicine Operations: None Procedures: None Summary of Care Provided: 1. Acute on chronic combined respiratory failure secondary to presumed acute COPD exacerbation stage IV-pulmonary following. On baseline 3 L nasal cannula. Continue BiPAP at bedtime. Blood culture is negative, antibiotics discontinued. Respiratory panel negative. Patient denies productive cough. Continue home nebulizer and inhaler regimen. Continue oral prednisone at discharge for 40 mg 5 days. Patient stable for discharge home with continued palliative care. Follow-up with pulmonary medicine in 2 weeks. 2. Chronic systolic CHF-no acute exacerbation. Continue home regimen including digoxin, Lasix, lisinopril. 3. Ischemic cardiomyopathy status post AICD 4. Paroxysmal atrial fibrillation-continue Eliquis, carvedilol. 5. Hypertension-stable, continue current regimen. 6. Obstructive sleep apnea-continue BiPAP at night and as needed during the day. 7. Tobacco dependence-encouraged smoking cessation. General: Alert, Oriented x3, Cooperative, No apparent distress HEENT: Atraumatic, PERRLA, EOMI, Normocephalic Neck: Supple, No JVD, Negative Carotid Bruits Lungs: Diminished, Wheezes Cardiovascular: Regular rate, Regular Rhythm, Normal S1, Normal S2, No murmurs Abdomen: Bowel Sounds Present, Soft, Non Tender, Non-Distended Extremities: No clubbing, No cyanosis, No edema, Capillary Refill Less than 3 Seconds Skin: No rashes, No breakdown Musculoskeletal: No Tenderness to Palpation of Joints or Extremities Neurological: Cranial nerves II-XII grossly intact Psych/Mental Status: Normal Affect, Appropriate Patient seen exam prior to discharge. Physical assessment as noted above. Patient is stable for discharge home with further follow-up recommendations as noted above. This patient was seen by ARAM Jordan under the supervision of Dr. Ca. Discharge Diet: Low fat/ Low Cholesterol Discharge Activity: Return to Normal Activity Call your doctor if you observe: Fever of 101 or Higher, Shortness of breath, Dizziness, Fainting spells, Chest pain Home Medications: Medications to take at Discharge Carvedilol [Coreg (Beta Kade)] 25 mg PO BID 09/09/15 Finasteride [Proscar] 5 mg PO DAILY 09/09/15 Vit B12/Levomefolate/Vit B6/B2 [l-Methyl-Mc Tablet] 1 tab PO 1700 09/09/15 Apixaban [Eliquis] 5 mg PO BID 06/19/16 Isosorbide Mononitrate [Imdur] 30 mg PO DAILY 06/19/16 Oxygen, Home [Home Oxygen] 3 lpm NASAL DAILY PRN PRN 08/12/16 hydrALAZINE [Apresoline] 50 mg PO TID 08/12/16 Spironolactone [Aldactone] 25 mg PO DAILY 12/11/16 Lisinopril [Zestril] 20 mg PO QHS 03/19/17 Acetaminophen [Tylenol Tablet] 650 mg PO Q6H PRN PRN #0 tab 03/22/17 Ferrous Sulfate 325 mg PO DAILY@0800 04/02/17 Gabapentin [Neurontin] 100 mg PO BID 04/02/17 Omeprazole [Prilosec] 20 mg PO BID 04/02/17 predniSONE tablet 10 mg PO DAILY 04/02/17 memantine 5 mg tablet 28 mg PO QDAY 11/09/17 nystatin 100,000 unit/mL oral suspension 5 ml MUCOUS MEMBRANE TID #250 ml 11/17/17 ipratropium-albuterol 0.5 mg-3 mg(2.5 mg base)/3 mL nebulization soln 3 ml INHALATION Q4H PRN PRN #180 ml 11/18/17 budesonide 0.5 mg/2 mL suspension for nebulization 0.5 mg INHALATION Q6H #60 ml 11/19/17 Cyanocobalamin [Vitamin B12] 1,000 mcg PO DAILY@0800 05/02/18 Digoxin [Lanoxin] 250 mcg PO DAILY 05/02/18 Furosemide [Lasix] 40 mg PO BID@1000,1800 05/02/18 Levalbuterol HCl [Xopenex] 3 ml INHALATION Q6H PRN PRN 05/02/18 Nitroglycerin 0.4 mg SL PRN PRN 05/02/18 Potassium Chloride [K-Dur] 20 meq PO DAILY 05/02/18 Prednisone 10 mg PO QDAY 05/02/18 Prednisone 40 mg PO DAILY 4 Days #8 tab 05/04/18 Following Prescrptions Were Given to Patient: Prednisone 40 mg PO DAILY 4 Days #8 tab Primary Care Physician: Sally Allison MD [Primary Care Provider] - Please follow up with your Primary Care Physician in: 1 Week Please Follow Up With: Jet Arnett MD - May see [employer] When: 2 Weeks Disposition: Palliative Minutes spent on discharge:: 35 Patient Condition:: Stable Medical Necessity - Tobacco Use Smoking Status: Current every day smoker Tobacco Use: Cigarettes, Vapor Meaningful Use Info Meaningful Use Diagnoses (Choose all that apply): None applicable <Shanelle Ca - Last Filed: 05/04/18 21:16> Discharge Date and Diagnosis - Secondary Discharge Diagnosis Chronic Problems (Last Updated 05/04/18 @ 09:00 by Nola Guzman NP-C) PETE (obstructive sleep apnea) (Chronic) Hypersomnia (Chronic) Runny nose (Chronic) PETE (obstructive sleep apnea) (Chronic) Stage 4 very severe COPD by GOLD classification (Chronic) Tobacco abuse (Chronic) Shortness of breath (Chronic) Hypercapnic respiratory failure, chronic (Chronic) Acute and chronic respiratory failure with hypercapnia (Chronic) Paroxysmal atrial fibrillation (Chronic) Chronic respiratory failure (Chronic) Silicosis (Chronic) History of implantable cardioverter-defibrillator (ICD) placement (Chronic) CHF (congestive heart failure) (Chronic) Hypertension (Chronic) Hospital Course and Treatment Summary of Care Provided: The patient is a 67 year old M [] Code Visit Inpatient E AND M: [id number] Disch Hosp 05/04/18 1114 <Electronically signed by Deja EASLEYC> Date Deja EASLEYC 05/04/186<Electronically signed by Shanelle Ca MD> Cosigner Signature (if applicable): Date Shanelle Ca MD CC: ARAM Joseph; Shanelle Ca MD; Sally Allison MD Signed EMERGENCY DEPARTMENT Observed: 05/12/2018 Status: F Source: [place] SUMMARY 5:36 PM [facility] REPOSITORY [facility] Medical Records Department [address] [place] [address] Emergency Department Summary 05/12/18 1028 MR#: [id number] Acct: [id number] Name: JIMMY BUTLER Rep #: [id number] : 1950 67 From: Alli Hartman MD PCP: Sally Allison MD Status: DEP ER - ER Visit Summary Date of Service: 05/12/18 Chief Complaint: [] Left posterior back chest pain for about 2 weeks History of Present Illness: The patient is a 67 M [] history of severe COPD home O2 home BiPAP, cardiac defibrillator pacemaker rate of CHF and heart disease, was admitted to the hospital for chest pain found to have a left-sided pneumothorax is very small chronic spiculated masses upper lungs no major change on CT with pleural effusions or small he basically indicates per he has had persistent pain to the left posterior back chest since about May 01 when he was admitted to symptoms of not improved they seem worse today after the shower his symptoms are worse when he bends forward moves his left arm his cardiopulmonary status is stable he indicates his breathing is actually improved he has had no anginal type chest pain, no leg edema and history of DVT PE [place], no trauma no fever no cough he is eating and drinking well normal bowel bladder habits normal urinary output Physical Examination: [] His vital signs are within normal range she is chronic on his 3 L home O2 he speaking in his normal phrases he is in no distress his HEENT exams unremarkable the lungs are diminished bilaterally with scattered wheezing heart tones sound regular the abdomen soft nontender upper lower extremities unremarkable he is awake moving all 4, his back pain/area of pain is actually the left parascapular area infrascapular region this area to palpation shows mild pain no lesions no skin rashes the symptoms are worse when he bends forward or moves his left arm his upper lower extremity exams are again unremarkable he has about 2+ edema to lower legs that is not new neurologically is normal per the Test Results: [] Emergency Department Course and Treatment: [] Screening labs CT EKG and management the patient's lab studies EKG CTA of chest are all generally unremarkable nothing acute but no pneumothorax, no PE no abnormalities of the chest wall, some chronic changes that were present before please see all those reports I spoke with Dr. Marroquin water sponger for Dr. Arnett given all the above he agrees the patient be discharged home to follow-up in the office tomorrow in the rapid follow-up clinic back to reassess the patient he is resting comfortably he feels better discussed all the above with him and the they are comfortable with discharge home to follow-up with a rapid clinic and stay on the chronic meds and return for change in symptoms he is feeling better Troponin is chronically elevated, and his potassium is 5.9 he is noted to be on potassium supplementations and have asked him to hold those until he follows up with his physicians Treatment Plan: [] Disposition: [] Stable home Impression: [] left parascapular pain etiology unclear weeks, history of COPD history of hyperkalemia on potassium supplements This note was generated with [employer] dictation software. It may contain incorrect words, spelling, and punctuation that were not noted in review of the chart prior to signing ED Disposition - Plan for ED Patient: Chief Complaint: Back Instructions: ED Spasm Back No Trauma Referrals: Jonathon Marroquin DO [STAFF PHYSICIAN] - Sally Allison MD [Primary Care Provider] - What to do if you have Problems For any increased pain, shortness of breath, bleeding, nausea or vomiting, chest pain, or any unexpected problems, contact your Primary Care Provider. Call [facility] ([phone]) or report to the closest Emergency Room. Call 911 if necessary. 05/12/18 0111 <Electronically signed by Alli Hartman MD> Date Alli Hartman MD Cosigner Signature (If Indicated): Date CC: Sally Allison MD DISCHARGE INSTRUCTION Observed: 05/12/2018 Status: F Source: [place] 1:52 PM [facility] REPOSITORY [facility] Medical Records Department [address] [place] [address] Discharge Instruction 05/12/18 1351 MR#: [id number] Acct: [id number] Name: JIMMY BUTLER Rep #: [id number] : 1950 67 From: Alli Hartman MD PCP: Sally Allison MD Status: REG ER ED Disposition - Plan for ED Patient: Chief Complaint: Back Instructions: ED Spasm Back No Trauma Referrals: Jonathon Marroquin DO [STAFF PHYSICIAN] - Sally Allison MD [Primary Care Provider] - Additional Instructions: Please stop the potassium pills you are taking at home until you follow-up with your doctors What to do if you have Problems For any increased pain, shortness of breath, bleeding, nausea or vomiting, chest pain, or any unexpected problems, contact your Primary Care Provider. Call [facility] ([phone]) or report to the closest Emergency Room. Call 911 if necessary. 05/12/18 1352 <Electronically signed by Alli Hartman MD> Date Alli Hartman MD Cosigner Signature (If Indicated): Date CC: Sally Allison MD DISCHARGE INSTRUCTION Observed: 05/12/2018 Status: F Source: [place] 1:50 PM [facility] REPOSITORY [facility] Medical Records Department [address] [place] [address] Discharge Instruction 05/12/18 1349 MR#: [id number] Acct: [id number] Name: JIMMY BUTLER Rep #: [id number] : 1950 67 From: Alli Hartman MD PCP: Sally Allison MD Status: REG ER ED Disposition - Plan for ED Patient: Chief Complaint: Back Instructions: ED Spasm Back No Trauma Referrals: Sally Allison MD [Primary Care Provider] - Jonathon Marroquin DO [STAFF PHYSICIAN] - What to do if you have Problems For any increased pain, shortness of breath, bleeding, nausea or vomiting, chest pain, or any unexpected problems, contact your Primary Care Provider. Call [facility] ([phone]) or report to the closest Emergency Room. Call 911 if necessary. 05/12/18 1350 <Electronically signed by Alli Hartman MD> Date Alli Hartman MD Cosigner Signature (If Indicated): Date CC: Sally Allison MD CBC W/DIFF, AUTOMATED Collected: 05/12/2018 Status: F Source: [place] 10:35 AM [facility] REPOSITORY TYPE CODE TESTS RESULT OUT OF RANGE REFERENCE UNITS LAB L100.1000 4.4-11.0 K/mm3 Normal WBC 4.4 LAB L100.1200 4.6-6.2 M/mm3 Low RBC 3.50 LAB L100.1300 13.0-16.5 g/dl Low HGB 9.6 LAB L100.1400 40-54 % Low HCT 33.2 LAB L100.1500 80-94 fL High MCV 94.9 LAB L100.1600 27.0-32.0 pg Normal MCH 27.4 LAB L100.1700 32-36 g/gl Low MCHC 28.9 LAB L100.1810 11.6-14.6 % Normal RDW CV 14.6 LAB L100.1820 35.1-43.9 fl High RDW SD 46.8 LAB L100.1900 150-450 K/mm3 Low PLT 143 LAB L100.2000 6.2-12.0 fl Normal MPV 9.5 LAB L100.2100 47-70 % High NEUT% 71.5 LAB L100.2200 19-41 % Low LY% 16.8 LAB L100.2300 0-10 % High MONO% 11.0 LAB L100.2400 0-5 % Normal EO% 0.2 LAB L100.2500 0-1 % Normal BASO% 0.0 LAB L100.2550 0.0-0.9 % Normal IM GRAN % 0.500 Result Comment: IG% - Immature Granulocytes (promyelocytes, myelocytes and metamyelocytes) > 1% indicates that a LEFT SHIFT is Present. LAB L100.2620 2.0-7.7 X10 3/uL Normal Absolute Neut 3.1 LAB L100.2720 0.83-4.51 X10 3/ul Low Absolute Lymph 0.73 Performed By: #### L100.0100 #### [facility] [address] [place], [place], [address] BASIC METABOLIC Collected: 05/12/2018 Status: F Source: [place] PROFILE (BMP) 10:35 AM [facility] REPOSITORY TYPE CODE TESTS RESULT OUT OF RANGE REFERENCE UNITS LAB L501.0100 74-106 mg/dL Normal GLU 94 Result Comment: Please note revised GLUCOSE reference range effective 2017. LAB L501.1000 7-18 mg/dL High BUN 28 LAB L501.1100 0.70-1.30 mg/dL Normal CREAT,SERUM 1.22 Result Comment: The validity of the calculated GFR AND GFRAA in patients over 70 years has not been determined. Clinical correlation is essential. LAB L501.1110 >60 mL/min Normal EST GFR 62 Result Comment: Non- GFR Calc LAB L501.1115 >60 mL/min Normal EST GFR - AA 76 Result Comment: GFR Calc LAB L501.1255 ml/min Normal Estimated CRCL 60.86 LAB L501.1300 10-20 RATIO High BUN/CRE 23.0 LAB L501.2200 8.5-10 mg/dL Normal .1 CA 8.8 LAB L501.5300 136-14 mmol/L Normal 5 NA 142 LAB L501.5600 3.5-5. mmol/L High 1 K 5.9 Result Comment: Slight Hemolysis, Result may be falsely increased. LAB L501.5900 98-107 mmol/L Normal CL 100 LAB L501.6100 21.0-32.0 mmol/L High CO2 44.0 LAB L501.6200 5-15 Low GAP -2 Performed By: #### L500.2500, L501.4010 #### [facility] [address] [facility] [place], [address] TROPONIN-I Collected: 05/12/2018 Status: F Source: [place] 10:35 AM [facility] REPOSITORY TYPE CODE TESTS RESULT OUT OF RANGE REFERENCE UNITS LAB L501.4010 <0.045 ng/mL High 0.096 TROPONIN-I Result Comment: TROPONIN-I EXPECTED VALUES <0.045 Negative 0.045 - 0.590 Consistent with Cardiac Damage > OR = 0.600 Critical Value Not every elevated troponin is indicative of [place]. These values should be used with clinical judgement in examining the patient's clinical picture for diagnosis. To establish a diagnosis of [place] versus myocardial injury, there must be a demonstrated rise and/or fall in the troponin values, in addition to ischemic symptoms, EKG changes, new regional wall motion abnormality, and/or angiographical evidence. PLEASE NOTE: REFERENCE RANGES EDITED 18 Performed By: #### L500.2500, L501.4010 #### [facility] [address] [place], [address] BNP,B-TYPE NATRIURETIC Collected: 05/12/2018 Status: F Source: [place] PEPTIDE 10:35 AM [facility] REPOSITORY TYPE CODE TESTS RESULT OUT OF RANGE REFERENCE UNITS LAB L503.6620 0-100 pg/mL Normal B-TYPE 56.1 EJ PEP Performed By: #### L503.6620 #### [facility] [address] [place], [address] CTA CHEST W/WO Observed: 05/12/2018 Status: F Source: [place] CONTRAST 10:28 AM [facility] REPOSITORY [facility] Imaging Services [address] [place] [address] CTA Chest W/WO Contrast MR#: [id number] Acct: [id number] Name: JIMMY BUTLER Rep #: [id number] : 1950 M 67 From: Ritesh Bunch MD PCP: Keegan NGUYEN,Sally Status: REG ER Study: CTA Chest W/WO Contrast Date of Exam: 05/12/18 Exam# [id number] Ordering Dr: Alli Hartman MD STUDY: CTA CHEST REASON FOR EXAM: Male, 67 years old. Chest pain. Worsening back pain and shortness of breath. Recent hospitalization for pneumothorax. RADIATION DOSAGE (If Supplied By Facility): CTDIvol = ( 9.39 ) mGy, DLP = ( 236.99 ) mGycm TECHNIQUE: The examination was performed with the intravenous administration of 100 ml of Isovue 370 contrast material. Post-processing of the angiographic images was performed, with multiplanar reformation and 3D reconstruction. Individualized dose optimization techniques were used for this CT. COMPARISON: Comparison is made with prior study dated June 18, 2016. FINDINGS: Normal enhancement of the main pulmonary artery and right and left pulmonary arteries. Normal enhancement of the bilateral peripheral pulmonary arteries. There is no demonstrated pulmonary embolism. Normal thoracic aorta and visualized great vessels. There is no demonstrated aortic dissection. There are calcifications of the coronary arteries. Normal mediastinum. Normal hilar regions. Normal visualized trachea and bronchi. Hyperinflation. Diffuse emphysematous changes with bullous formation worse in the upper lobes. Spiculated right upper lobe mass adjacent to the major fissure. This is essentially unchanged. Stable nodular densities in the left upper lobe. Stable left pleural thickening on the left side. Normal chest wall structures. There are degenerative changes of thoracic spine. Normal visualized upper abdomen. CT/CTA Chest W/WO Contrast IMPRESSION: There is no evidence of pneumothorax at this time. Hyperinflation with the evidence of the emphysematous changes and bullous formation. Stable bilateral nodular densities. Stable left-sided pleural thickening. Electronically Signed: Ritesh Bunch MD at 12:22 EDT Tel [phone], Service support , CC: MD Zia Hartman; Sally Allison MD [employer] Crewmember: Signed CHEST 1 VIEW Observed: 05/12/2018 Status: F Source: [place] (PORTABLE) 10:28 AM [facility] REPOSITORY [facility] Imaging Services [address] [place] [id number] Chest 1 View (Portable) MR#: [id number] Acct: [id number] Name: JIMMY BUTLER Rep #: [id number] : 1950 M 67 From: Ritesh Bunch MD PCP: Sally Allison MD Status: REG ER Study: Chest 1 View (Portable) Date of Exam: 05/12/18 Exam# [id number] Ordering Dr: Alli Hartman MD STUDY: X-RAY CHEST REASON FOR EXAM: Male, 67 years old. Chest pain. History of silicosis. TECHNIQUE: Single AP portable view of the chest. COMPARISON: Comparison is made with prior study dated May 10, 2018. FINDINGS: EKG electrode are seen. Stable nodular infiltrates in the right upper lobe as well as in the left apex. Stable pleural parenchymal changes at the left lung base. There is no evidence of pneumothorax on this examination. Normal size heart. A left-sided dual-chamber pacemaker is seen. Normal mediastinum and yee. Normal visualized pulmonary arteries. There is atherosclerotic calcification of the aortic arch with tortuosity. Normal visualized thoracic spine. Normal visualized ribs, clavicles, and shoulders. There is no demonstrated abnormality of the visualized soft tissue structures of the upper abdomen. RAD/Chest 1 View (Portable) IMPRESSION: Stable nodular infiltrates in both upper lobes as well as stable left pleural-parenchymal changes. There is no evidence of pneumothorax. Electronically Signed: Ritesh Bunch MD at 12:23 EDT Tel [phone], Service support , CC: MD Zia Hartman; Sally Allison MD [employer] Crewmember: Signed PULMONARY VISIT REPORT Observed: 05/11/2018 Status: F Source: [place] 3:45 PM [facility] REPOSITORY [facility] [address] [place] [address] OFFICE VISIT Date of Service: 05/10/18 MR#: [id number] Acct: [id number] Name: JIMMY BUTLER Rep #: [id number] : 1950 Provider: Kenna Trinh Age/Sex: 67/M Location: [facility] Status: Signed Assessment AND Plan 1. PETE (obstructive sleep apnea) G47.33 Status Chronic Plan Resume BiPAP. patient is benefiting and was using BiPAP prior to recent hospitalization. No indication for titration study at this time. Follow-up with Dr. Arnett in 3 months. 2. Stage 4 very severe COPD by GOLD classification J44.9 Status Chronic Plan He does not appear to be in exacerbation of his COPD today. No medication change medications. No additional testing at this time. Follow-up with Dr. Arnett in 3 months. 3. Chronic respiratory failure J96.10 Status Chronic Plan Recent frequent exacerbations. Continue to use submental oxygen as needed to maintain saturations 89-93%. No additional testing at this time, follow- up with Dr. Arnett in 3 months. 4. Tobacco abuse Z72.0 Status Chronic Plan Smoking cessation eduction provided about 5 minutes and discussed benefits and maintaining cessation. 5. Pneumothorax J93.9 Status Acute Plan Personally reviewed today's chest x-ray, pneumothorax appears resolved. Official read pending. No additional testing at this time. May resume BiPAP. Follow- up with Dr. Arnett in 3 months. Plan Detail Other Orders Orders: Follow Up 3 Months ([facility]) [facility] FU: Chief Complaint: Hospital f/U HPI Comments Details: Jimmy a 67-year-old male presented to the office for follow-up from hospitalization. He is wearing nasal canula oxygen and in a wheelchair. He is accompanied today by his . Patient stated his symptoms have improved since hospitalization and his is agreeable. He does have a intermittent ache to left lower back with inspiration that he rates the pain 4 out 5 out of 10 but has not tried any pain medication for this. He denies increased shortness of breath after hospitalization. Denies fever, n/v, chills, chest pain or tightness, dizziness or syncope. He wears oxygen 3 L/min via nasal cannula continuously and per recommendation does not use BiPAP at this time until reassessed at this visit. He states he gets adequate rest at night I sleep good at night. He stated he does have a moist intermittent nonproductive cough. He does not use inhalations, but takes routine prednisone daily. He last smoked cigarettes prior to hospital admission and he continues to be smoke free. Complaints report for the past 30 days shows that he has been 83% compliant with average use about 4 hours to 5 hours nightly. Current settings are 18/12 cm of water AHI is currently under control at 0.3 events per hour. Leaks do not appear to be a frequent issue. He has been advised not to wear the BiPAP from his hospital discharge until he could be followed up in the office today. The patient was recently in hospital this is ( 2) that was completed in hospital from May 02 - May 04, 2018 and again on May 05 - May 06, 2018. Patient was admitted for acute on chronic combined respiratory failure secondary to presumed acute exacerbation of COPD stage IV. 20 pages of hospital documentation was reviewed and found to be significant for chest x-ray was completed on May 02 showing a stable chest with no acute cardiopulmonary disease. Chest imaging from May 05, 2018 shows interstitial thickening in the left lung possibly representing unilateral pulmonary interstitial edema in association with a tiny left pleural effusion and pneumothorax. A CT of the chest was completed on May 05 subsequent to the previously mentioned chest x-ray, and showed central lobar and paraseptal emphysema. A spiculated mass in the suprahilar region right lung measuring up to 3.1 x 1.5 cm, also a 2 x 2.2 m related mass in the left apex. This chest imaging was compared to imaging that was completed back in 2016 and showed no change in these 2 nodules. Intake Vital Signs05/10/18 Height 5 ft 11 in 05/10/18 Weight: 161 lb 06/19/18 Body Mass Index (BMI) 22.4 Intake Visit Reasons: Hospital FU Accompanied by: Allergies aspirin Adverse Reaction (Verified 05/10/18 11:04) Upset Stomach Medications Carvedilol [Coreg (Beta Kade)] 25 mg PO BID 09/09/15 [History Confirmed 05/10/18] Finasteride [Proscar] 5 mg PO DAILY 09/09/15 [History Confirmed 05/10/18] Vit B12/Levomefolate/Vit B6/B2 [l-Methyl-Mc Tablet] 1 tab PO 1700 09/09/15 [History Confirmed 05/10/18] Apixaban [Eliquis] 5 mg PO BID 06/19/16 [History Confirmed 05/10/18] Isosorbide Mononitrate [Imdur] 30 mg PO DAILY 06/19/16 [History Confirmed 05/10/18] Oxygen, Home [Home Oxygen] 3 lpm NASAL DAILY PRN PRN 08/12/16 [History Confirmed 05/10/18] hydrALAZINE [Apresoline] 50 mg PO TID 08/12/16 [History Confirmed 05/10/18] Spironolactone [Aldactone] 25 mg PO DAILY 12/11/16 [History Confirmed 05/10/18] Lisinopril [Zestril] 20 mg PO QHS 03/19/17 [History Confirmed 05/10/18] Acetaminophen [Tylenol Tablet] 650 mg PO Q6H PRN PRN #0 tab 03/22/17 [Rx Confirmed 05/10/18] Ferrous Sulfate 325 mg PO DAILY@0800 04/02/17 [History Confirmed 05/10/18] memantine 5 mg tablet 28 mg PO QDAY 11/09/17 [History Confirmed 05/10/18] nystatin 100,000 unit/mL oral suspension 5 ml MUCOUS MEMBRANE TID #250 ml 11/17/17 [Rx Confirmed 05/10/18] ipratropium-albuterol 0.5 mg-3 mg(2.5 mg base)/3 mL nebulization soln 3 ml INHALATION Q4H PRN PRN #180 ml 11/18/17 [Rx Confirmed 05/10/18] budesonide 0.5 mg/2 mL suspension for nebulization 0.5 mg INHALATION Q6H #60 ml 11/19/17 [Rx Confirmed 05/10/18] Cyanocobalamin [Vitamin B12] 1,000 mcg PO DAILY@0800 05/02/18 [History Confirmed 05/10/18] Digoxin [Lanoxin] 250 mcg PO DAILY 05/02/18 [History Confirmed 05/10/18] Furosemide [Lasix] 40 mg PO BID@1000,1800 05/02/18 [History Confirmed 05/10/18] Nitroglycerin 0.4 mg SL PRN PRN 05/02/18 [History Confirmed 05/10/18] Potassium Chloride [K-Dur] 20 meq PO DAILY 05/02/18 [History Confirmed 05/10/18] prednisone 10 mg tablet 10 mg PO QDAY 05/10/18 [History Confirmed 05/10/18] [facility] Medical History Hypersomnia (Chronic) Pleural effusion (Inactive) PETE (obstructive sleep apnea) (Chronic) Stage 4 very severe COPD by GOLD classification (Chronic) Tobacco abuse (Chronic) Shortness of breath (Chronic) Confusion (Resolved) Hypercapnic respiratory failure, chronic (Chronic) Acute and chronic respiratory failure with hypercapnia (Chronic) Paroxysmal atrial fibrillation (Chronic) Chronic respiratory failure (Chronic) Silicosis (Chronic) Acute on chronic systolic (congestive) heart failure (Acute) CHF (congestive heart failure) (Chronic) Hypertension (Chronic) Pneumothorax on left (Resolved) Surgical History History of implantable cardioverter-defibrillator (ICD) placement (Chronic) Family History Father Lung disease Brother Cancer lung Social History Smoking Status: Former smoker second hand exposure: Yes alcohol intake: never substance use type: does not use Review of Systems Const CONSTITUTIONAL: Negative anorexia, body ache, chills, daytime sleepiness, fever(s), night sweats, oral thrush, stops breathing during sleep, weight loss, sleeping in chair, fatigue, weight loss, weight gain, frequent colds, seasonal allergies, other, headache(s) or orthopnea EETM Ear Nose Throat Mouth: Positive hard of hearing; negative hearing normal, hoarseness, dry mouth in morning, change in vision, itchy eyes, eye pain, swallowing Difficulty, ear pain, nose bleed, headache(s), mouth pain, nasal congestion, nasal discharge, post nasal drip, sinus pain, sinus pressure, sore throat or other Cardio Cardiovascular: Negative chest pain, chest pain at rest, chest pain with activity, irregular heart rhythm, edema, shortness of breath when lying down, palpitations, murmur or other Resp Respiratory: Positive as per HPI, shortness of breath shortness of breath: Positive with activity, cough cough: Positive non-productive and pain on inspiration; negative pain with cough, wheezing, chest congestion, chest tightness, inhalers, increase use of rescue inhalers, snoring, apnea or other c/o intermittent non productive cough and pain described as ache to left lower back upon inspiration. pain level 4-5/10 Gastro Gastrointestional: Negative bloody stools, change in appetite, difficulty swallowing, reflux, hematemesis, melena stool, loose stool, constipation or other Genitourinary: Negative blood in urine, nocturia, pain with urination or other Musc Musculoskeletal: Negative body pain, back pain, neck pain or other Skin/Breast Skin/Breast: Negative dry skin, itching, rash, unusual bruising, breast lump or other Neuro Neurological: Negative restless legs, confusion, weakness or other Psych Psychocological: Negative abnormal sleep pattern, anxiety, thoughts of hurting self/others, hopelessness or other Lymph Lymphatic: Negative easy bleeding, easy bruising, swollen lymph nodes or other Exam Const Constitutional: Positive cooperative, in no acute respiratory distress, thin, frail appearing, good hygiene, wearing supplemental oxygen and conversant Oxygen 3 L/min continuous via nasal cannula Head Head: Positive normocephalic and atraumatic Eyes Eye: Positive clear conjunctiva; negative nystagmus Ears Ear: Positive external ears normal and hard of hearing; negative hearing normal Nose Nose: Positive external nose normal and no nasal discharge; negative epistaxis Mouth Mouth: Positive oral mucosae normal, dentures and no lesions; negative post nasal drip, malodorous breath or oral thrush present Neck Neck: Positive normal visual inspection, full ROM and trachea midline; negative lymphadenopathy Chest Wall Chest: Positive increased A/P diameter and symmetric chest movement Resp lung sounds: Positive diminished and normal chronic state of increased work of breathing; negative wheezes, wheeze present on forced exhalation, rhonchi, rales or dullness to percussion left > right diminished Cardio Cardiac: Positive regular rate, S1 normal, S2 normal and regular rhythm; negative murmur GI GI: Positive normal bowel sounds and normal to inspection Genitourinary: Positive deferred Musc Musculoskeletal: Positive in a wheelchair and ROM normal; negative kyphosis or scoliosis Skin Pulmonary Skin Exam: Positive intact; negative rash, lesion, ulcers, erythema, scaly or dermal atrophy Pulses Pulse: Yes radial pulses present, Yes pulses normal x4 extremities Extremities Extremities: Yes capillary refill normal, Yes clubbing, No cyanosis, No edema Neuro Neurologic: Yes no focal neuro deficits, Yes cooperative, Yes understands questions, Yes normal concentration, Yes normal cognition, Yes conversant, Yes normal coordination, No tremor Lymph Lymphatic: No lymphadenopathy, No tenderness, No cervical adenopathy, No axillary adenopathy Psych Appearance: Positive grossly normal, eye contact and well kempt Mental Status: Positive mental status grossly normal Mood: Positive congruent mood Affect: Positive normal affect Office Procedures Smoking Cessation Time Spent 3-10 minutes: Yes Coding Level of Care Code Off vis,est,level 4 Diagnoses PETE (obstructive sleep apnea) G47.33 Stage 4 very severe COPD by GOLD classification J44.9 Chronic respiratory failure J96.10 Tobacco abuse Z72.0 Pneumothorax J93.9 Additional Codes Time Spent - 3-10 minutes: Yes ([id number]) Time Spent (min) 30 05/11/18 1545 <Electronically signed by Kenna CHIU> Date Kenna CHIU Cosigner Signature: Date (if applicable) CC: Sally Allison MD 12 LEAD ELECTROCARDIOGRAM Observed: 05/11/2018 Status: F Source: [place] 3:15 PM [facility] REPOSITORY [facility] Cardiovascular Services [address] [place] [address] 12 Lead EKG 05/05/186 MR#: [id number] Acct: [id number] Name: JIMMY BUTLER Rep #: [id number] : 1950 67 From: Jonny Meneses MD Attending Dr: Shanelle Ca MD Status: DIS IN Ordering Dr: Elijah Rock MD Date: 05/05/18 Location: [facility] Sex: M AA Admitted: 05/06/18 Test Reason : SOB Blood Pressure : / mmHG Vent. Rate : 081 BPM Atrial Rate : 081 BPM P-R Int : 104 ms QRS Dur : 114 ms QT Int : 356 ms P-R-T Axes : 055 -40 102 degrees QTc Int : 413 ms Sinus rhythm with marked sinus arrhythmia with short NJ with occasional Premature ventricular complexes Left axis deviation ST AND T wave abnormality, consider lateral ischemia Abnormal ECG Confirmed by DUNCAN NGUYEN, JONNY ([id number]), news copy editor MALIA INGRAM ([id number]) on 05/11/2018 3:14:32 PM Referred By: VALERIE Confirmed By:JONNY MENESES MD 05/11/18 1514 Date Jonny Meneses MD CC: Shanelle Ca MD; Elijah Rock MD; Sally Allison MD Signed DOWNTIME REPORT Observed: 05/11/2018 Status: F Source: [place] 2:10 PM [facility] Medical Records Department [address] [place] [address] Downtime Report MR#: [id number] Acct: [id number] Name: JIMMY BUTLER Rep #: [id number] : 1950 67 From: Derrick Ingram MD PCP: Sally Allison MD Status: DIS IN This patient was seen during an EMR downtime April 25, 2018 - May 02, 2018. This patient may have a combination of paper and electronic documentation or all paper documentation. All documentation is viewable within the e-chart portion of [employer] for each patient visit. CHEST PA AND LATERAL Observed: 05/10/2018 Status: F Source: [place] 10:36 AM [facility] Imaging Services [address] [place] [address] Chest PA and Lateral MR#: [id number] Acct: [id number] Name: JIMMY BUTLER Rep #: [id number] : 1950 M 67 From: Ritesh Bunch MD PCP: Sally Allison MD Status: REG CLI Study: Chest PA and Lateral Date of Exam: 05/10/18 Exam# [id number] Ordering Dr: Leo Londono STUDY: X-RAY CHEST REASON FOR EXAM: Male, 67 years old. Shortness of breath. TECHNIQUE: PA and lateral views of the chest. COMPARISON: Comparison is made with prior study dated May 06, 2018. FINDINGS: Hyperinflation. Persistent infiltrates in the upper lobes. There is mild improvement. Blunting of left costophrenic angle with left basilar atelectasis and/or scarring. Normal size heart. A left-sided dual-chamber pacemaker is seen. Normal mediastinum and yee. Normal visualized pulmonary arteries. There is atherosclerotic calcification of the aortic arch with tortuosity. Normal visualized thoracic spine. Normal visualized ribs, clavicles, and shoulders. There is no demonstrated abnormality of the visualized soft tissue structures of the upper abdomen. RAD/Chest PA and Lateral IMPRESSION: Persistent bilateral upper lobe infiltrates although there has been mild improvement as compared to prior study. Blunting of left costophrenic angle with underlying atelectasis and/or scarring. Electronically Signed: Ritesh Bunch MD at 16:02 EDT Tel [phone], Service support , CC: STEPHAN Londono; Sally Allison MD [employer]ocket System Crewmember: Signed PROGRESS Observed: 05/09/2018 Status: COMPLETED Source: [place] 9:07 AM [facility] REPOSITORY HNO ID: [id number] Author: Chriss Sanon Service: (none) Author Type: Nurse Practitioner Type: Progress Notes Filed: 05/09/2018 9:53 AM Note Text: TRANSITION CARE MANAGEMENT (TCM) INITIAL CONTACT Journalism Professor Outreach ? Provider Action/FYI: Brought to [facility] ER on 05/01/18 for 3 days of SOB, worse with exertion, wheezing and fatigue. Pt was discharged from [facility] on 05/04/18 for acute on chronic respiratory failure and COPD exacerbation. Pt on oxygen. Follows with [facility] Dr. Arnett at [facility]. Pt has palliative care. Pt uses a BiPAP machine for hie PETE. Does smoke 3/4 to 1/2 ppd. Uses 3 liters of oxygen, but does not wear all the time. Chest xray and labs done while admitted, had consult on 05/02/[address] Arnett. ? ? Initial contact with patient post discharge, spoke to remarks: LEFT MESSAGE FOR PT TO CALL BACK. PLEASE SET UP HOSPITAL FOLLOW UP WITHIN 14 DAYS OF 05/04/18. Patient identified by name and . ? SUMMARY: -Pt discharged from [facility] on 05/04/18. -Admitted for: 1. Acute on chronic respiratory failure with hypoxia and hypercapnia (Acute) 2. COPD exacerbation (Acute) ? ? Do you have a hospital follow up appointment with your PCP? Appointment on 05/09/2018 with Chriss Sanon NP. No. Assist patient with follow-up appointment within 1-14 calendar days from discharge date. If patient prefers not to schedule follow-up appointment at this time, notify PCP. ? MEDICATIONS: Many patients have questions or concerns about their medications once they are home. Were you prescribed any new medications? Yes ? Were you told to hold any medications? If yes, what are those medications? Prednisone 40 mg daily Were any of your medications discontinued? No ? Do you have any questions about getting or taking your medications? No ? Your discharge instructions/After visit Summary (AVS) are important in guiding you through the recovery process. Is there anything I might help you understand? No ? Do you have all the necessary equipment and supplies at home? Yes ? Medical records from recent hospitalization: Forms in office TRANSITION CARE MANAGEMENT (TCM): Provider Documentation. Chief Complaint Patient presents with: tcm HPI Jimmy Butler is a 67 year old male who presents here today for TCM. HOSPITAL/ER FOLLOW UP: Reason for visit: Acute respiratory failure, COPD exacerbation Which facility: [facility] Date of visit: Two admissions: 05/01/2018-05/04/2018 and 05/05/2018-05/06/2018 Diagnosis: Acute Respiratory failure, COPD stage IV exacerbation, ischemic cardiomyopathy, PAF, Elevated troponin levels, sillicosis, PETE, CHF with Pacemaker, HTN, pneumothorax. Testing done: Chest x-ray (05/05/2018) showed small pneumothorax left lung and questionable nodule of the right upper lobe with cavitation, CT of the chest (05/05/2018) showed small left basilar pneumothorax, bilateral apical/suprahilar mass. Neoplasm not excluded. Troponins were elevated. CBC: Hgb 9.8 Treatment given: Treated with medrol and breathing treatments. No chest tube was used as the pneumothorax was small. He was instructed to withhold CPAP/Bipap for one week and he is scheduled for a follow up with Dr. Arnett in 4 days from discharge, with a chest x-ray prior. Was given prednisone taper, which he has finished. Current symptoms: Has an appointment with Dr. Arnett tomorrow. At this time, the patient is doing okay. Blood pressure is 90/58. Breathing is okay. Patient is on 3 L of oxygen at this time. This has been his baseline. States that his breathing has slightly improved. No fevers or chills. Has not been performing his spirometry at home as instructed. Has been trying to get mucus out of his lungs. No cough. No chest pain. No leg swelling. Foot swelling has slowly improved. Patient is an ex-smoker. Did have stable anemia at the hospital, Hgb 9.8. Family is unclear about his source of anemia. Patient's family is a poor historian, has a difficult time with knowing, recognizing medications, patient's history, and occurrence at recent visit. Family states that inpatient cariology did not diagnose him with a [place]. Does have a cooky machine operator with Dr. Finn. No appointment until June. They also did not know about the spiculated mass in the bilateral upper lobes of his lungs. States that no one informed them. Past medical history, appointments, medications, allergies reviewed. 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 Upper lobe nodular infiltrates. - Unspecified essential hypertension Previous Surgical History PAST SURGICAL HISTORY Procedure Laterality Date - INSERTION OF CHEST TUBE 06/19/16 left - LAMINECT W/EXPLOR LUMBAR ST jaylon Hess. - PAST SURGICAL HISTORY OF cervical fusion 2x. - PAST SURGICAL HISTORY OF torn lig. knee, left - PAST SURGICAL HISTORY OF carpel tunnel L side - PAST SURGICAL HISTORY OF ~ brain aneurysms, repaired before rupture. - TOTAL KNEE REPLACEMENT left knee - TRANSURETHRAL ELEC-SURG PROSTATECTOM ~2009 x2. Still symptomatic. Family History FAMILY HISTORY Problem Relation Age of Onset - Hypertension Mother - Emphysema Father - Cancer Brother Lung Patient Allergies ALLERGIES Allergen Reactions - Asa [Aspirin] GI Upset - Asa [Salicylates] GI Upset Current Medications Current Outpatient Prescriptions on File Prior to Visit: omeprazole (PRILOSEC) 20 mg capsule Take 1 capsule by mouth twice daily before meals. 1/2 hr before meal. gabapentin (NEURONTIN) 100 mg capsule Take 1 capsule by mouth twice daily. ferrous sulfate 325 mg (65 mg iron) tablet Take 1 tablet by mouth daily with breakfast. nystatin (MYCOSTATIN) 100,000 unit/mL susp Take 5 mL by mouth three times daily. ipratropium-albuterol (DUONEB) 0.5 mg-3 mg(2.5 mg base)/3 mL nebu Inhale 3 mL as instructed every 4 hours as needed. lisinopril (ZESTRIL, PRINIVIL) 20 mg tablet Take 1 tablet by mouth once daily. carvedilol (COREG) 25 mg tablet TAKE 1 TABLET BY MOUTH TWICE DAILY WITH MEALS digoxin (LANOXIN) 250 mcg tablet Take 1 tablet by mouth once daily. ELIQUIS 5 mg tab(s) TAKE 1 TABLET BY MOUTH TWICE DAILY furosemide (LASIX) 20 mg tablet TAKE 1 TABLET BY MOUTH TWICE DAILY nitrofurantoin monohydrate and macrocrystal (MACROBID) 100 mg capsule Take 1 capsule by mouth once daily. finasteride (PROSCAR) 5 mg tablet Take 1 tablet by mouth once daily. memantine XR (NAMENDA XR) 28 mg CSpX Take 1 capsule by mouth once daily. potassium chloride (K-TAB) 10 mEq tablet Take 1 tablet by mouth daily with breakfast. isosorbide mononitrate ER (IMDUR) 30 mg 24 hr tablet TAKE 1 TABLET BY MOUTH EVERY DAY hydrALAZINE (APRESOLINE) 50 mg tablet Take 1 tablet by mouth three times daily. spironolactone (ALDACTONE) 25 mg tablet Take 1 tablet by mouth once daily. BIPAP levalbuterol (XOPENEX) 0.63 mg/3 mL nebulizer solution Use 3 mL via nebulizer every 6 hours as needed for Wheezing/Shortness of Breath (for wheezing). Dx: J44.9 budesonide (PULMICORT) 0.5 mg/2 mL nebulizer solution nitroglycerin sublingual (NITROQUICK) 0.4 mg SL tablet Dissolve 1 tablet under the tongue as needed. FOR CHEST PAIN. IF NO RELIEF CALL 911 budesonide (PULMICORT FLEXHALER) 180 mcg/actuation aepb Inhale 2 Puffs as instructed twice daily. predniSONE (DELTASONE) 10 mg tablet Take 10 mg by mouth once daily. COMPOUNDED PRESCRIPTION [facility] for home BP monitoring COMPOUNDED PRESCRIPTION Oxygen 3 liters Cyanocobalamin (VITAMIN B-12) 1,000 mcg subl Dissolve 1 tablet under the tongue once daily. No current facility-administered medications on file prior to visit. Social History Social History Marital status: Spouse name: Years of education: Number of children: Occupational History Occupation Employer Comment [employer] . Very smoky and concetta. 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 Social History Main Topics Smoking status: Current Every Day Smoker Packs/day: 1.00 Years: 50.00 Types: Cigarettes Start date: 1964 Last attempt to quit: 12/23/2014 Smokeless tobacco: Never Used Alcohol use: Yes Comment: Infrequent beer. 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 Dog. Birds. REVIEW OF SYSTEMS: as above ? Reviewed relevant PMHx, PSHx, Social Hx, current medications and allergies. EXAM: BP 90/58 Pulse 76 General Appearance: Well appearing, alert, in no acute distress, well-hydrated, well nourished. Positioned in a wheelchair. Head: Normocephalic, no masses, lesions, tenderness or abnormalities. Eyes: Anicteric sclera. Pupils are equally round and reactive to light. Extraocular movements are intact. . Ears: External ears normal, canals clear. Nose/Sinuses: Nares normal, septum midline, mucosa normal, no drainage or sinus tenderness. Oropharynx: Lips, mucosa, and tongue normal, teeth and gums normal, oropharynx normal. Neck: Supple, no adenopathy; thyroid symmetric, normal size. Lungs: Lungs clear to auscultation. No wheezing, rhonchi, rales. Heart: RRR without murmur, gallop, or rubs. No ectopy. Abdomen: Normal abdominal exam, Abdomen soft, non-tender. Bowel sounds normal. No masses, organomegaly. Extremities: No deformities, edema.. Peripheral Pulses: Normal, Pulses: radial=4/4, dorsalis pedis=4/4, posterior tibial=4/4. Lymph Nodes: No cervical lymphadenopathy and No supraclavicular lymphadenopathy. Health Maintenance List DTAP,TDAP,TD(1 - Tdap) due on 1967 HEPATITIS C SCREENING due on 1992 ZOSTER VACCINE (SHINGRIX)(1 of 2) due on 1998 COLORECTAL CANCER SCREENING,SEE MODIFIER due on 05/08/2012 INFLUENZA(Season Ended) due on 07/23/2018 DIABETES SCREEN due on 02/17/2021 LIPID SCREEN due on 12/16/2022 ADULT PREVNAR-13 Completed PNEUMOVAX AGE 65 AND OVER WITH 5YR LOOKBACK Completed Data reviewed [facility] ER note, [facility] Discharge summary 05/01/2018-05/04/2018 and 05/05/2018-05/06/2018, chest x-ray, CT of chest results. ASSESSMENT/PLAN: 1. PETE treated with BiPAP - ICD9: 327.23, ICD10: G47.33 (primary diagnosis) - Continue to hold Bipap as instructed by pulmonology for 1 week due to pneumothorax. 2. Nonischemic cardiomyopathy (HCC) - ICD9: 425.4, ICD10: I42.8 - Continue to follow with Dr. Finn. 3. Centrilobular emphysema (HCC) - ICD9: 492.8, ICD10: J43.2 - Breathing is stable, oxygen supplementation is back to normal level of 3 L NC. Continue to follow with Dr. Arnett with pulmonology. 4. Essential hypertension - ICD9: 401.9, ICD10: I10 - good control - Continue current medication(s) - Recommended regular aerobic exercise. - Recommend home blood pressure monitoring, to bring results in on next visit - Goal of BP <130/80 - COMP METABOLIC PANEL 5. Primary spontaneous pneumothorax - ICD9: 512.81, ICD10: J93.11 - Continue following with pulmonary, Dr. Arnett, get chest x-ray tomorrow. 6. Anemia, unspecified type - ICD9: 285.9, ICD10: D64.9 - Iron deficiency vs anemia of chronic disease. We will repeat with iron studies prior to next months appt. - FERROUS SULFATE 325 MG (65 MG IRON) TABLET - CBC + DIFF 7. Cavitating mass of lung - ICD9: 518.89, ICD10: J98.4 - Discussed need to follow up with pulmonology with patient and . She states that she will discuss with Dr. Arnett tomorrow. - Continue following with pulmonary, Dr. Arnett, get chest x-ray tomorrow. Follow up with Dr. Allison in 1 month, get labs prior. Sooner if needed. LILIANE ClaytonOV Observed: 05/09/2018 Status: COMPLETED Source: [place] 9:00 AM [facility] REPOSITORY Office Visit (FAMPWS) JIMMY BUTLER ([id number]) 1950 M Date Time Provider Department 05/09/18 9:00 AM CHRISS SANON (ANN-MARIE) FAMPWS During your visit today, we recorded the following information about you: Pulse Blood pressure 76/minute 90/58 Chriss Sanon APRN.CNP 05/09/2018 9:53 AM Signed TRANSITION CARE MANAGEMENT (TCM) INITIAL CONTACT Journalism Professor Outreach ? Provider Action/FYI: Brought to [facility] ER on 05/01/18 for 3 days of SOB, worse with exertion, wheezing and fatigue. Pt was discharged from [facility] on 05/04/18 for acute on chronic respiratory failure and COPD exacerbation. Pt on oxygen. Follows with [facility] Dr. Arnett at [facility]. Pt has palliative care. Pt uses a BiPAP machine for hie PETE. Does smoke 3/4 to 1/2 ppd. Uses 3 liters of oxygen, but does not wear all the time. Chest xray and labs done while admitted, had consult on 05/02/[address] Arnett. ? ? Initial contact with patient post discharge, spoke to remarks: LEFT MESSAGE FOR PT TO CALL BACK. PLEASE SET UP HOSPITAL FOLLOW UP WITHIN 14 DAYS OF 05/04/18. Patient identified by name and . ? SUMMARY: -Pt discharged from [facility] on 05/04/18. -Admitted for: 1. Acute on chronic respiratory failure with hypoxia and hypercapnia (Acute) 2. COPD exacerbation (Acute) ? ? Do you have a hospital follow up appointment with your PCP? Appointment on 05/09/2018 with Chriss Sanon NP. No. Assist patient with follow-up appointment within 1-14 calendar days from discharge date. If patient prefers not to schedule follow- up appointment at this time, notify PCP. ? MEDICATIONS: Many patients have questions or concerns about their medications once they are home. Were you prescribed any new medications? Yes ? Were you told to hold any medications? If yes, what are those medications? Prednisone 40 mg daily Were any of your medications discontinued? No ? Do you have any questions about getting or taking your medications? No ? Your discharge instructions/After visit Summary (AVS) are important in guiding you through the recovery process. Is there anything I might help you understand? No ? Do you have all the necessary equipment and supplies at home? Yes ? Medical records from recent hospitalization: Forms in office TRANSITION CARE MANAGEMENT (TCM): Provider Documentation. Chief Complaint Patient presents with: tcm HPI Jimmy Butler is a 67 year old male who presents here today for TCM. HOSPITAL/ER FOLLOW UP: Reason for visit: Acute respiratory failure, COPD exacerbation Which facility: [facility] Date of visit: Two admissions: 05/01/2018-05/04/2018 and 05/05/2018-05/06/2018 Diagnosis: Acute Respiratory failure, COPD stage IV exacerbation, ischemic cardiomyopathy, PAF, Elevated troponin levels, sillicosis, PETE, CHF with Pacemaker, HTN, pneumothorax. Testing done: Chest x-ray (05/05/2018) showed small pneumothorax left lung and questionable nodule of the right upper lobe with cavitation, CT of the chest (05/05/2018) showed small left basilar pneumothorax, bilateral apical/suprahilar mass. Neoplasm not excluded. Troponins were elevated. CBC: Hgb 9.8 Treatment given: Treated with medrol and breathing treatments. No chest tube was used as the pneumothorax was small. He was instructed to withhold CPAP/Bipap for one week and he is scheduled for a follow up with Dr. Arnett in 4 days from discharge, with a chest x-ray prior. Was given prednisone taper, which he has finished. Current symptoms: Has an appointment with Dr. Arnett tomorrow. At this time, the patient is doing okay. Blood pressure is 90/58. Breathing is okay. Patient is on 3 L of oxygen at this time. This has been his baseline. States that his breathing has slightly improved. No fevers or chills. Has not been performing his spirometry at home as instructed. Has been trying to get mucus out of his lungs. No cough. No chest pain. No leg swelling. Foot swelling has slowly improved. Patient is an ex-smoker. Did have stable anemia at the hospital, Hgb 9.8. Family is unclear about his source of anemia. Patient's family is a poor historian, has a difficult time with knowing, recognizing medications, patient's history, and occurrence at recent visit. Family states that inpatient cariology did not diagnose him with a [place]. Does have a cooky machine operator with Dr. Finn. No appointment until June. They also did not know about the spiculated mass in the bilateral upper lobes of his lungs. States that no one informed them. Past medical history, appointments, medications, allergies reviewed. 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 Upper lobe nodular infiltrates. - Unspecified essential hypertension Previous Surgical History PAST SURGICAL HISTORY Procedure Laterality Date - INSERTION OF CHEST TUBE 06/19/16 left - LAMINECT W/EXPLOR LUMBAR ST jaylon Hess. - PAST SURGICAL HISTORY OF cervical fusion 2x. - PAST SURGICAL HISTORY OF torn lig. knee, left - PAST SURGICAL HISTORY OF carpel tunnel L side - PAST SURGICAL HISTORY OF ~1990s brain aneurysms, repaired before rupture. - TOTAL KNEE REPLACEMENT left knee - TRANSURETHRAL ELEC-SURG PROSTATECTOM ~2009 x2. Still symptomatic. Family History FAMILY HISTORY Problem Relation Age of Onset - Hypertension Mother - Emphysema Father - Cancer Brother Lung Patient Allergies ALLERGIES Allergen Reactions - Asa [Aspirin] GI Upset - Asa [Salicylates] GI Upset Current Medications Current Outpatient Prescriptions on File Prior to Visit: omeprazole (PRILOSEC) 20 mg capsule Take 1 capsule by mouth twice daily before meals. 1/2 hr before meal. gabapentin (NEURONTIN) 100 mg capsule Take 1 capsule by mouth twice daily. ferrous sulfate 325 mg (65 mg iron) tablet Take 1 tablet by mouth daily with breakfast. nystatin (MYCOSTATIN) 100,000 unit/mL susp Take 5 mL by mouth three times daily. ipratropium-albuterol (DUONEB) 0.5 mg-3 mg(2.5 mg base)/3 mL nebu Inhale 3 mL as instructed every 4 hours as needed. lisinopril (ZESTRIL, PRINIVIL) 20 mg tablet Take 1 tablet by mouth once daily. carvedilol (COREG) 25 mg tablet TAKE 1 TABLET BY MOUTH TWICE DAILY WITH MEALS digoxin (LANOXIN) 250 mcg tablet Take 1 tablet by mouth once daily. ELIQUIS 5 mg tab(s) TAKE 1 TABLET BY MOUTH TWICE DAILY furosemide (LASIX) 20 mg tablet TAKE 1 TABLET BY MOUTH TWICE DAILY nitrofurantoin monohydrate and macrocrystal (MACROBID) 100 mg capsule Take 1 capsule by mouth once daily. finasteride (PROSCAR) 5 mg tablet Take 1 tablet by mouth once daily. memantine XR (NAMENDA XR) 28 mg CSpX Take 1 capsule by mouth once daily. potassium chloride (K-TAB) 10 mEq tablet Take 1 tablet by mouth daily with breakfast. isosorbide mononitrate ER (IMDUR) 30 mg 24 hr tablet TAKE 1 TABLET BY MOUTH EVERY DAY hydrALAZINE (APRESOLINE) 50 mg tablet Take 1 tablet by mouth three times daily. spironolactone (ALDACTONE) 25 mg tablet Take 1 tablet by mouth once daily. BIPAP levalbuterol (XOPENEX) 0.63 mg/3 mL nebulizer solution Use 3 mL via nebulizer every 6 hours as needed for Wheezing/Shortness of Breath (for wheezing). Dx: J44.9 budesonide (PULMICORT) 0.5 mg/2 mL nebulizer solution nitroglycerin sublingual (NITROQUICK) 0.4 mg SL tablet Dissolve 1 tablet under the tongue as needed. FOR CHEST PAIN. IF NO RELIEF CALL 911 budesonide (PULMICORT FLEXHALER) 180 mcg/actuation aepb Inhale 2 Puffs as instructed twice daily. predniSONE (DELTASONE) 10 mg tablet Take 10 mg by mouth once daily. COMPOUNDED PRESCRIPTION [facility] for home BP monitoring COMPOUNDED PRESCRIPTION Oxygen 3 liters Cyanocobalamin (VITAMIN B-12) 1,000 mcg subl Dissolve 1 tablet under the tongue once daily. No current facility-administered medications on file prior to visit. 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 Social History Main Topics Smoking status: Current Every Day Smoker Packs/day: 1.00 Years: 50.00 Types: Cigarettes Start date: 1964 Last attempt to quit: 12/23/2014 Smokeless tobacco: Never Used Alcohol use: Yes Comment: Infrequent beer. 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 Dog. Birds. REVIEW OF SYSTEMS: as above ? Reviewed relevant PMHx, PSHx, Social Hx, current medications and allergies. EXAM: BP 90/58 Pulse 76 General Appearance: Well appearing, alert, in no acute distress, well-hydrated, well nourished. Positioned in a wheelchair. Head: Normocephalic, no masses, lesions, tenderness or abnormalities. Eyes: Anicteric sclera. Pupils are equally round and reactive to light. Extraocular movements are intact. . Ears: External ears normal, canals clear. Nose/Sinuses: Nares normal, septum midline, mucosa normal, no drainage or sinus tenderness. Oropharynx: Lips, mucosa, and tongue normal, teeth and gums normal, oropharynx normal. Neck: Supple, no adenopathy; thyroid symmetric, normal size. Lungs: Lungs clear to auscultation. No wheezing, rhonchi, rales. Heart: RRR without murmur, gallop, or rubs. No ectopy. Abdomen: Normal abdominal exam, Abdomen soft, non-tender. Bowel sounds normal. No masses, organomegaly. Extremities: No deformities, edema.. Peripheral Pulses: Normal, Pulses: radial=4/4, dorsalis pedis=4/4, posterior tibial=4/4. Lymph Nodes: No cervical lymphadenopathy and No supraclavicular lymphadenopathy. Health Maintenance List DTAP,TDAP,TD(1 - Tdap) due on 1967 HEPATITIS C SCREENING due on 1992 ZOSTER VACCINE (SHINGRIX)(1 of 2) due on 1998 COLORECTAL CANCER SCREENING,SEE MODIFIER due on 05/08/2012 INFLUENZA(Season Ended) due on 07/23/2018 DIABETES SCREEN due on 02/17/2021 LIPID SCREEN due on 12/16/2022 ADULT PREVNAR-13 Completed PNEUMOVAX AGE 65 AND OVER WITH 5YR LOOKBACK Completed Data reviewed [facility] ER note, [facility] Discharge summary 05/01/2018-05/04/2018 and 05/05/2018-05/06/2018, chest x-ray, CT of chest results. ASSESSMENT/PLAN: 1. PETE treated with BiPAP - ICD9: 327.23, ICD10: G47.33 (primary diagnosis) - Continue to hold Bipap as instructed by pulmonology for 1 week due to pneumothorax. 2. Nonischemic cardiomyopathy (HCC) - ICD9: 425.4, ICD10: I42.8 - Continue to follow with Dr. Finn. 3. Centrilobular emphysema (HCC) - ICD9: 492.8, ICD10: J43.2 - Breathing is stable, oxygen supplementation is back to normal level of 3 L NC. Continue to follow with Dr. Arnett with pulmonology. 4. Essential hypertension - ICD9: 401.9, ICD10: I10 - good control - Continue current medication(s) - Recommended regular aerobic exercise. - Recommend home blood pressure monitoring, to bring results in on next visit - Goal of BP <130/80 - COMP METABOLIC PANEL 5. Primary spontaneous pneumothorax - ICD9: 512.81, ICD10: J93.11 - Continue following with pulmonary, Dr. Arnett, get chest x-ray tomorrow. 6. Anemia, unspecified type - ICD9: 285.9, ICD10: D64.9 - Iron deficiency vs anemia of chronic disease. We will repeat with iron studies prior to next months appt. - FERROUS SULFATE 325 MG (65 MG IRON) TABLET - CBC + DIFF 7. Cavitating mass of lung - ICD9: 518.89, ICD10: J98.4 - Discussed need to follow up with pulmonology with patient and . She states that she will discuss with Dr. Arnett tomorrow. - Continue following with pulmonary, Dr. Arnett, get chest x-ray tomorrow. Follow up with Dr. Allison in 1 month, get labs prior. Sooner if needed. LILIANE Clayton APRN.CNP 05/09/2018 9:26 AM Signed Please discuss findings of 3.1 X 1.5 cm spiculated mass in the right lung and the 2 X 2.2 cm spiculated mass in the left apex with pulmonology tomorrow, found on CT of chest on 05/06/2018. Chriss Sanon APRN.CNP Referring Provider: SELF [[id number]] Allergies As of Date: 05/09/2018 Noted Allergy Reaction ASA (ASPIRIN) 07/19/2017 8 - GI Upset ASA (SALICYLATES) 01/29/2006 8 - GI Upset Date Reviewed: 05/09/2018 Reviewed by: Chriss (Ann-Marie) Fab - Fully Assessed Reason for Visit: tcm [Other] Primary Visit Diagnosis:PETE treated with BiPAP [G47.33] Other Visit Diagnoses:Nonischemic cardiomyopathy (HCC) [I42.8] Centrilobular emphysema (HCC) [J43.2] Essential hypertension [I10] Primary spontaneous pneumothorax [J93.11] Anemia, unspecified type [D64.9] Cavitating mass of lung [J98.4] Order(s):ferrous sulfate 325 mg (65 mg iron) tabletTake 1 tablet by mouth daily with breakfast.Disp: 30 tabletRfl: 2 CBC + DIFF [SQCBCDIF] Order #: [id number] FUTURE COMP METABOLIC PANEL [SQCMP] Order #: [id number] FUTURE IRON + TIBC [SQIRON] Order #: [id number] FUTURE FERRITIN BLD [SQFERR] Order #: [id number] FUTURE Prescriptions as of 05/09/2018 Sig: NYSTATIN 100,000 UNIT/ML ORAL* Take 5 mL by mouth three time* LISINOPRIL 20 MG TABLET Take 1 tablet by mouth once d* CARVEDILOL 25 MG TABLET TAKE 1 TABLET BY MOUTH TWICE * DIGOXIN 250 MCG TABLET Take 1 tablet by mouth once d* ELIQUIS 5 MG TABLET TAKE 1 TABLET BY MOUTH TWICE * FUROSEMIDE 20 MG TABLET TAKE 1 TABLET BY MOUTH TWICE * NITROFURANTOIN MONOHYDRATE AND * Take 1 capsule by mouth once * FINASTERIDE 5 MG TABLET Take 1 tablet by mouth once d* MEMANTINE 28 MG CAPSULE SPRIN* Take 1 capsule by mouth once * POTASSIUM CHLORIDE ER 10 MEQ * Take 1 tablet by mouth daily * ISOSORBIDE MONONITRATE ER 30 * TAKE 1 TABLET BY MOUTH EVERY * HYDRALAZINE 50 MG TABLET Take 1 tablet by mouth three * SPIRONOLACTONE 25 MG TABLET Take 1 tablet by mouth once d* LEVALBUTEROL 0.63 MG/3 ML BIBIANA* Use 3 mL via nebulizer every * NITROGLYCERIN 0.4 MG SUBLINGU* Dissolve 1 tablet under the t* COMPOUNDED PRESCRIPTION [facility] for ho* COMPOUNDED PRESCRIPTION Oxygen 3 liters CYANOCOBALAMIN (VIT B-12) 1,0* Dissolve 1 tablet under the t* FERROUS SULFATE 325 MG (65 MG* Take 1 tablet by mouth daily * BIPAP BUDESONIDE 180 MCG/ACTUATION * Inhale 2 Puffs as instructed * PREDNISONE 10 MG TABLET Take 10 mg by mouth once asad* Problem List As Of Date 05/09/2018 Noted Resolved Hypertension [I10] INVALID FOR* Lumbar disc disease [M51.9] INVALID FOR* Cervical disc disease [M50.90] INVALID FOR* COPD (chronic obstructive pulmonary disease) [J*INVALID FOR* BPH (benign prostatic hyperplasia) [N40.0] INVALID FOR* Urethral stricture [N35.9] INVALID FOR* Difficulty voiding [R39.198] INVALID FOR* Frequency of urination [R35.0] INVALID FOR* Urinary retention [R33.9] INVALID FOR* Anemia [D64.9] INVALID FOR* Tobacco abuse [Z72.0] INVALID FOR* Nonischemic cardiomyopathy (HCC) [I42.8] INVALID FOR* Atrial fibrillation with rapid ventricular resp*INVALID FOR* AICD (automatic cardioverter/defibrillator) pre*INVALID FOR* Spontaneous pneumothorax [J93.83] INVALID FOR* Swallowing difficulty [R13.10] INVALID FOR* More... PETE treated with BiPAP [G47.33] INVALID FOR* More... Other instructions from your clinician: Please discuss findings of 3.1 X 1.5 cm spiculated mass in the right lung and the 2 X 2.2 cm spiculated mass in the left apex with pulmonology tomorrow, found on CT of chest on 05/06/2018. Chriss Sanon APRN.ANN-MARIE Prescriptions ordered this encounter Disp Refills Start End FERROUS SULFATE 325 MG (65 MG IRON) * 30 t* 2 05/09/2018 Route: ORAL Sig: Take 1 tablet by mouth daily with breakfast. Medications Discontinued During This Encounter gabapentin (NEURONTIN) 100 mg capsule 05/05/2018 05/09/2018 Class: Historical Med Route: ORAL Sig: Take 1 capsule by mouth twice daily. Disc: Course of therapy completed omeprazole (PRILOSEC) 20 mg capsule 05/05/2018 05/09/2018 Class: Historical Med Route: ORAL Sig: Take 1 capsule by mouth twice daily before meals. 1/2 hr before meal. Disc: Discontinued by Patient ipratropium-albuterol (DUONEB) 0.5 m* 05/05/2018 05/09/2018 Class: Historical Med Route: INHALATION Sig: Inhale 3 mL as instructed every 4 hours as needed. Disc: Discontinued by Patient budesonide (PULMICORT) 0.5 mg/2 mL n* 11/29/2016 05/09/2018 Class: Historical Med Sig: Disc: Discontinued by Patient ferrous sulfate 325 mg (65 mg iron) * 05/05/2018 05/09/2018 Class: Historical Med Route: ORAL Sig: Take 1 tablet by mouth daily with breakfast. Disc: Reason for discontinue is not on file. Disposition: Return in about 1 month (around 06/08/2018) for HTN, COPD, CHF f/u. Follow-up and Disposition History Recorded Encounter Status:Closed by CHRISS SANON CNP on 05/09/18 12 LEAD ELECTROCARDIOGRAM Observed: 05/09/2018 Status: F Source: [place] 8:56 AM [facility] REPOSITORY [facility] Cardiovascular Services [facility] [place] [address] [place] [address] 12 Lead EKG 06/11/18 0534 MR#: [id number] Acct: [id number] Name: JIMMY BUTLER Rep #: [id number] : 1950 67 From: Jonny Meneses MD Attending Dr: Shanelle Ca MD Status: DIS IN Ordering Dr: Shanelle Ca MD Date: 05/01/18 Location: [facility] Sex: M AA Admitted: 05/01/18 Test Reason : AM EKG Blood Pressure : / mmHG Vent. Rate : 108 BPM Atrial Rate : 150 BPM P-R Int : 156 ms QRS Dur : 108 ms QT Int : 370 ms P-R-T Axes : 055 -48 083 degrees QTc Int : 495 ms Sinus tachycardia with occasional Premature ventricular complexes Left axis deviation Abnormal ECG Confirmed by JONNY MENESES MD ([id number]), news copy editor MALIA INGRAM ([id number]) on 05/06/2018 1:45:42 PM Referred By: Phil Joyce Confirmed By:JONNY MENESES MD 05/06/18 1345 Date Jonny Meneses MD CC: Shanelle Ca MD; Sally Allison MD; Phil Joyce MD Signed 12 LEAD ELECTROCARDIOGRAM Observed: 05/09/2018 Status: F Source: [place] 8:45 AM [facility] REPOSITORY [facility] Cardiovascular Services [address] [place] [id number] 12 Lead EKG 05/01/18 1904 MR#: [id number] Acct: [id number] Name: JIMMY BUTLER Rep #: [id number] : 1950 67 From: Melvin Raymundo MD Attending Dr: Shanelle Ca MD Status: DIS IN Ordering Dr: Shanelle Ca MD Date: 05/02/18 Location: [facility] Sex: M AA Admitted: 05/01/18 Test Reason : SOB Blood Pressure : / mmHG Vent. Rate : 108 BPM Atrial Rate : 108 BPM P-R Int : 144 ms QRS Dur : 110 ms QT Int : 354 ms P-R-T Axes : 072 -31 089 degrees QTc Int : 474 ms Sinus tachycardia with Premature supraventricular complexes and a short run of atrial fibrillation Left axis deviation ST AND T wave abnormality, consider lateral ischemia Abnormal ECG Confirmed by MELVIN RAYMUNDO MD ([id number]), MALIA Chen ([id number]) on 05/04/2018 5:46:58 PM Referred By: Phil Joyce Confirmed By:MELVIN RAYMUNDO MD 05/04/181746 Date Melvin Raymundo MD CC: Shanelle Ca MD; Sally Allison MD; Phil Joyce MD Signed 12 LEAD ELECTROCARDIOGRAM Observed: 05/09/2018 Status: F Source: [place] 8:45 [facility] REPOSITORY [facility] Cardiovascular Services [address] [place] [address] 12 Lead EKG 05/01/181926 MR#: [id number] Acct: [id number] Name: JIMMY BUTLER Rep #: [id number] : 1950 67 From: Melvin Raymundo MD Attending Dr: Shanelle Ca MD Status: DIS IN Ordering Dr: Shanelle Ca MD Date: 05/01/18 Location: [facility] Sex: M AA Admitted: 05/01/18 Test Reason : REPEAT EKG Blood Pressure : / mmHG Vent. Rate : 079 BPM Atrial Rate : 079 BPM P-R Int : 140 ms QRS Dur : 108 ms QT Int : 360 ms P-R-T Axes : 075 -37 089 degrees QTc Int : 412 ms Normal sinus rhythm Left axis deviation Nonspecific ST and T wave abnormality Abnormal ECG Confirmed by MELVIN RAYMUNDO MD ([id number]), news copy editor MALIA INGARM ([id number]) on 05/04/2018 5:47:13 PM Referred By: Phil Joyce Confirmed By:MELVIN RAYMUNDO MD 05/04/181746 Date Melvin Raymundo MD CC: Shanelle Ca MD; Sally Allison MD; Phil Joyce MD Signed DISCHARGE SUMMARY Observed: 05/06/2018 Status: F Source: [place] 5:38 PM [facility] REPOSITORY [facility] Medical Records Department [address] [place] [address] Discharge Summary 05/06/18 1509 MR#: [id number] Acct: [id number] Name: JIMMY BUTLER Rep #: [id number] : 1950 67 From: Leo ROTHMAN PCP: Sally Allison MD Status: DIS IN Y Location: [place] [id number] <Leo Londono - Last Filed: 05/06/18 15:09> Discharge Date and Diagnosis Date of Admission: 05/05/18 Date of Discharge: 05/06/18 - Primary Discharge Diagnosis Active and Suspected Problems (Last Reviewed 05/06/18 @ 00:17 by Ronni Sotomayor DO) Pneumothorax (Acute) - suspected ruptured bleb Elevated troponin (Acute) COPD exacerbation Chronic hypoxic and hypercapneic respiratory failure Continued tobacco abuse PAfib sillicosis CHF HTN ICD Ischemic cardiomyopathy PETE - Secondary Discharge Diagnosis Chronic Problems (Last Reviewed 05/06/18 @ 00:17 by Ronni Sotomayor DO) PETE (obstructive sleep apnea) (Chronic) Hypersomnia (Chronic) Runny nose (Chronic) PETE (obstructive sleep apnea) (Chronic) 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 Shortness of breath (Chronic) Hypercapnic respiratory failure, chronic (Chronic) Acute and chronic respiratory failure with hypercapnia (Chronic) Paroxysmal atrial fibrillation (Chronic) Chronic respiratory failure (Chronic) Silicosis (Chronic) History of implantable cardioverter-defibrillator (ICD) placement (Chronic) CHF (congestive heart failure) (Chronic) Hypertension (Chronic) Hospital Course and Treatment Imaging Results: RAD/Chest 1 View (Portable) IMPRESSION: Increasing interstitial thickening in the left lung possibly representing unilateral pulmonary interstitial edema in association with tiny left pleural effusion and pneumothorax. Question nodule in the right upper lobe with cavitation CT would be useful for further assessment if clinically indicated.. RAD/Chest 1 View (Portable) IMPRESSION: Small left pleural effusion. There is no evidence of pneumothorax. CT/Chest without Contrast IMPRESSION: Small left basilar pneumothorax. Bilateral apical/suprahilar mass is. Neoplasm not excluded. Follow-up recommended. Centrilobular and paraseptal emphysema. Coronary artery disease and pacer. Consults: Melquiades - pulm Operations: None Procedures: None Summary of Care Provided: Physical exam on day of discharge: General: Resting comfortably NAD Psych: A/Ox3 normal affect HEENT: PEARRLA AT NC Neck: Supple NT CV: RRR no m/t/r/g/h Resp: Lungs are severely diminished throughout all vargas, I do not appreciate any wheezing at this time. Abd: [id number] Soft NT no guarding or rigidity Ext: DP2+= no edema Skin: W/D normal turgor Lymph/Heme: No active bleeding or adenopathy Neuro: CN2-12 intact Hospital course: The patient is a 67 year old M with a history of end-stage COPD, chronic hypoxic and hypercapnic respiratory failure, CHF, ischemic cardiomyopathy, obstructive sleep apnea on CPAP, continued nicotine abuse, paroxysmal atrial fibrillation, silicosis, hypertension who presented to the emergency room 2 days after being discharged from the hospital with an acute COPD exacerbation with worsening shortness of breath. He was brought to the emergency room and a checks x-ray revealed a small left base pneumothorax. He was admitted to the hospital and pulmonology was consulted. He remained stable on his home oxygen levels. He was placed on Solu-Medrol and bronchodilators. Pulmonology came and saw the patient and felt immediate he may have ruptured a bleb. A repeat chest x-ray the following morning did not show pneumothorax. Pulmonology advised that the patient hold off on CPAP and BiPAP for 1 week given the pneumothorax. Patient and family were agreeable to discharge home with follow-up in the pulmonary clinic in 4 days. He will have a repeat chest x- ray in the morning before his pulmonary follow-up. He was advised to complete the prednisone course that he was previously does prescribed at discharge. He remained in stable condition and desired to go home. He was discharged home in stable condition. This patient was seen by Leo Londono PA-C under the supervision of Doctor Ca. [] Discharge Diet: Low fat/ Low Cholesterol, 2000 mg Sodium Diet Discharge Activity: Return to Normal Activity Home Medications: Medications to take at Discharge Carvedilol [Coreg (Beta Kade)] 25 mg PO BID 09/09/15 Finasteride [Proscar] 5 mg PO DAILY 09/09/15 Vit B12/Levomefolate/Vit B6/B2 [l-Methyl-Mc Tablet] 1 tab PO 1700 09/09/15 Apixaban [Eliquis] 5 mg PO BID 06/19/16 Isosorbide Mononitrate [Imdur] 30 mg PO DAILY 06/19/16 Oxygen, Home [Home Oxygen] 3 lpm NASAL DAILY PRN PRN 08/12/16 hydrALAZINE [Apresoline] 50 mg PO TID 08/12/16 Spironolactone [Aldactone] 25 mg PO DAILY 12/11/16 Lisinopril [Zestril] 20 mg PO QHS 03/19/17 Acetaminophen [Tylenol Tablet] 650 mg PO Q6H PRN PRN #0 tab 03/22/17 Ferrous Sulfate 325 mg PO DAILY@0800 04/02/17 memantine 5 mg tablet 28 mg PO QDAY 11/09/17 nystatin 100,000 unit/mL oral suspension 5 ml MUCOUS MEMBRANE TID #250 ml 11/17/17 ipratropium-albuterol 0.5 mg-3 mg(2.5 mg base)/3 mL nebulization soln 3 ml INHALATION Q4H PRN PRN #180 ml 11/18/17 budesonide 0.5 mg/2 mL suspension for nebulization 0.5 mg INHALATION Q6H #60 ml 11/19/17 Cyanocobalamin [Vitamin B12] 1,000 mcg PO DAILY@0800 05/02/18 Digoxin [Lanoxin] 250 mcg PO DAILY 05/02/18 Furosemide [Lasix] 40 mg PO BID@1000,1800 05/02/18 Nitroglycerin 0.4 mg SL PRN PRN 05/02/18 Potassium Chloride [K-Dur] 20 meq PO DAILY 05/02/18 Prednisone 40 mg PO DAILY 4 Days #8 tab 05/04/18 Other Amb Orders: Chest PA and Lateral [RAD] Time Frame: 4 Days, Location: None Selected Primary Care Physician: Sally Allison MD [Primary Care Provider] - Please follow up with your Primary Care Physician in: 1-2 weeks Please Follow Up With: Jet Arnett MD - YOU MUST HAVE CHEST XRAY IN THE MORNING BEFORE YOUR APPOINTMENT When: 4 days Additional Instructions: no CPAP/BiPAP for a week. Repeat CXR prior to Pulm follow up Disposition: Home Minutes spent on discharge:: 35 Patient Condition:: Stable Medical Necessity - Tobacco Use Smoking Status: Former smoker - quit early April 2018 Tobacco Use: Cigarettes Meaningful Use Info Meaningful Use Diagnoses (Choose all that apply): None applicable <Shanelle Ca - Last Filed: 05/06/18 17:37> Discharge Date and Diagnosis - Secondary Discharge Diagnosis Chronic Problems (Last Reviewed 05/06/18 @ 00:17 by Ronni Sotomayor DO) PETE (obstructive sleep apnea) (Chronic) Hypersomnia (Chronic) Runny nose (Chronic) PETE (obstructive sleep apnea) (Chronic) 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 Shortness of breath (Chronic) Hypercapnic respiratory failure, chronic (Chronic) Acute and chronic respiratory failure with hypercapnia (Chronic) Paroxysmal atrial fibrillation (Chronic) Chronic respiratory failure (Chronic) Silicosis (Chronic) History of implantable cardioverter-defibrillator (ICD) placement (Chronic) CHF (congestive heart failure) (Chronic) Hypertension (Chronic) Hospital Course and Treatment Summary of Care Provided: The patient is a 67 year old M [] Code Visit Inpatient E AND M: [id number] Disch Hosp 05/06/18 1517 <Electronically signed by Leo ROTHMAN> Date Leo ROTHMAN 05/06/18 1738<Electronically signed by Shanelle Ca MD> Cosigner Signature (if applicable): Date Shanelle Ca MD CC: STEPHAN Londono; Shanelle Ca MD; Sally Allison MD Signed DISCHARGE INSTRUCTION Observed: 05/06/2018 Status: F Source: [place] 3:09 PM [facility] REPOSITORY [facility] Medical Records Department [address] [place] [address] Instructions for Home/Discharge Instructions 05/06/18 1507 MR#: [id number] Acct: [id number] Name: JIMMY BUTLER Rep #: [id number] : 1950 67 From: Leo ROTHMAN PCP: Sally Allison MD Status: ADM IN - Discharge Diagnoses Current Active Problems: Current Active and Chronic Problems (Last Reviewed 05/06/18 @ 00:17 by Ronni Sotomayor DO) Pneumothorax (Acute) Elevated troponin (Acute) You will use the following diet at home:: Cardiac - <2 grams Your food should be the consistency of: Regular Your liquids should be the consistency of: Regular/Thin Discharge Activity: Return to Normal Activity Additional Instructions: DO NOT USE CPAP/BiPAP for 1 WEEK UNLESS OTHERWISE ADVISED BY PULMONOLOGY Allergies/Adverse Reactions: Allergies aspirin Adverse Reaction (Verified 05/05/18 18:57) Upset Stomach Medications to take at Discharge Carvedilol [Coreg (Beta Kade)] 25 mg PO BID 09/09/15 Finasteride [Proscar] 5 mg PO DAILY 09/09/15 Vit B12/Levomefolate/Vit B6/B2 [l-Methyl-Mc Tablet] 1 tab PO 1700 09/09/15 Apixaban [Eliquis] 5 mg PO BID 06/19/16 Isosorbide Mononitrate [Imdur] 30 mg PO DAILY 06/19/16 Oxygen, Home [Home Oxygen] 3 lpm NASAL DAILY PRN PRN 08/12/16 hydrALAZINE [Apresoline] 50 mg PO TID 08/12/16 Spironolactone [Aldactone] 25 mg PO DAILY 12/11/16 Lisinopril [Zestril] 20 mg PO QHS 03/19/17 Acetaminophen [Tylenol Tablet] 650 mg PO Q6H PRN PRN #0 tab 03/22/17 Ferrous Sulfate 325 mg PO DAILY@0800 04/02/17 Gabapentin [Neurontin] 100 mg PO BID 04/02/17 Omeprazole [Prilosec] 20 mg PO BID 04/02/17 memantine 5 mg tablet 28 mg PO QDAY 11/09/17 nystatin 100,000 unit/mL oral suspension 5 ml MUCOUS MEMBRANE TID #250 ml 11/17/17 ipratropium-albuterol 0.5 mg-3 mg(2.5 mg base)/3 mL nebulization soln 3 ml INHALATION Q4H PRN PRN #180 ml 11/18/17 budesonide 0.5 mg/2 mL suspension for nebulization 0.5 mg INHALATION Q6H #60 ml 11/19/17 Cyanocobalamin [Vitamin B12] 1,000 mcg PO DAILY@0800 05/02/18 Digoxin [Lanoxin] 250 mcg PO DAILY 05/02/18 Furosemide [Lasix] 40 mg PO BID@1000,1800 05/02/18 Levalbuterol HCl [Xopenex] 3 ml INHALATION Q6H PRN PRN 05/02/18 Nitroglycerin 0.4 mg SL PRN PRN 05/02/18 Potassium Chloride [K-Dur] 20 meq PO DAILY 05/02/18 Prednisone 40 mg PO DAILY 4 Days #8 tab 05/04/18 Orders to be completed after discharge: Chest PA and Lateral [RAD] Time Frame: 4 Days, Location: None Selected Primary Care Physician: Sally Allison MD [Primary Care Provider] - Please follow up with your Primary Care Physician in: 1-2 weeks Please Follow Up With: Jet Arnett MD - YOU MUST HAVE CHEST XRAY IN THE MORNING BEFORE YOUR APPOINTMENT When: 4 days Proposed Discharge Date: 05/06/18 05/06/18 1509 <Electronically signed by Leo ROTHMAN> Date Leo ROTHMAN CC: Jet Arnett MD; Sally Allison MD CONSULTATION Observed: 05/06/2018 Status: F Source: [place] 2:08 PM [facility] REPOSITORY [facility] Medical Records Department [address] [place] [address] Consultation 05/06/18 0835 MR#: [id number] Acct: [id number] Name: JIMMY BUTLER Rep #: [id number] : 1950 67 From: Nola Guzman [employer] PCP: Keegan NGUYEN,Sally Status: ADM IN Y [id number] ADDENDUM by Jet Arnett MD on 05/06/18 at 1408 Code Visit Patient seen and examined independently in conjunction with nurse practitioner. All data, including note below, was personally reviewed and I agree with the added comments. Patient was recently hospitalized and seen by our service. Patient was discharged home and started to have complaints of shortness of breath. Upon workup in the emergency room, patient was noted to have a new onset spontaneous pneumothorax. Patient states that he is currently back to his baseline and would like to go home. Physical exam was independently performed and I agree as listed below. Physical exam is grossly unchanged compared to previous examination. Lung sounds are diminished. Patient does have clubbing on exam. Laboratory workup is notable for an elevated creatinine 1.3 and elevated carbon dioxide of 44. All imaging was personally reviewed. Chest x-rays were relatively unremarkable. CT scan of the chest does show a small basilar pneumothorax. Spiculated nodules noted before on previous testing. Assessment and plan Long discussion with patient and his about the pneumothorax. Patient is not a good candidate for increased FiO2 given CO2 retention at baseline. Patient also cannot use noninvasive BiPAP therapy given pneumothorax as this can lead to tension. Stressed with patient about being monitored in the hospital. However, patient states that he lives close and can come back if necessary. Patient does not have very many good therapeutic options. After review of the risks, benefits and alternatives, patient is agreed to go home. Patient will not use BiPAP therapy for at least a week, but continue with his 3 L nasal cannula. Patient's was instructed on the signs and symptoms of decompensation and states that she will come back immediately if any of these were to develop. Patient will need to be monitored for acute onset of shortness of breath in addition to decreased mental status as both can lead to complications of his chronic respiratory failure. Patient was given an appointment for follow-up with nurse practitioner 10:45 AM on Wednesday. Patient was instructed to obtain a chest x-ray prior to presentation. Inpatient E AND M: [id number] Init Hosp L2 05/06/18 1408 <Electronically signed by Jet Arnett MD> Date Jet Arnett MD cc: Jet Arnett MD; Sally Allison MD * Signed Problem List (1) Pneumothorax Status: Acute Qualifiers: Encounter type: initial encounter (2) Acute on chronic respiratory failure with hypoxia and hypercapnia Status: Acute (3) PETE (obstructive sleep apnea) Status: Chronic (4) Stage 4 very severe COPD by GOLD classification Status: Chronic (5) 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 (6) Shortness of breath Status: Chronic (7) Paroxysmal atrial fibrillation Status: Chronic (8) Silicosis Status: Chronic (9) CHF (congestive heart failure) Status: Chronic (10) Hypertension Status: Chronic Reason for Consult Date of Consultation: 05/06/18 Reason for Consultation: COPD, pneumothorax History of Present Illness: The patient is a 67 year old M with past medical history as below, just discharged from hospital on May 04, presented to the ED on 05/05 with complaints of shortness of breath. Patient was reportedly doing well, however when the patient's daughter visited him in the 's absence, he seemed to be more short of breath and was coughing up white mucus. He admitted to a coughing episode that may have contributed to his SOB. He tried BiPAP with some relief. He denies smoking since prior to his last admission. He does have some difficulty expectorating sputum and feels his chest is congested intermittently. He denies any dizziness, syncope, or chest pain. Denies any hemoptysis. Chest x-ray on arrival showed increasing interstitial thickening in the left lung, ? unilateral pulmonary interstitial edema in association with tiny left pleural effusion and pneumothorax. Questionable nodule right upper lobe with cavitation. CT of the chest was then obtained and revealed a small left basilar pneumothorax, bilateral apical/suprahilar spiculated masses (right suprahilar measuring 3.1 x 1.5 cm and left apex measuring 2 x 2.2 cm), centrilobular and paraseptal emphysema, pacer and CAD. Small left effusion. Blood work revealed no leukocytosis. Chemistry remarkable for a chloride of 97 and serum bicarb of greater than 45, which is common for this patient. Kidney function was at baseline. Troponin mildly elevated at 0.181. The patient was given IV Solu-Medrol and aerosols, maintained on 2-4 L of oxygen supplementation, and transferred to the progressive care unit for further evaluation and management. Pulmonary was consulted for respiratory failure and pneumothorax. Since then, the patient has been maintained on his baseline oxygen requirements of 3 L. He is compliant with his BiPAP at night in the home environment. A repeat chest x-ray was obtained this morning to reevaluate the pneumothorax. Again, there was a small left pleural effusion, but no evidence of pneumothorax. Patient currently appears to be at his baseline, he has been maintained on 3 L of oxygen. He denies any nausea, vomiting, or diarrhea. He reports compliance with BiPAP and steroid burst he was sent home on from his last admission. 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 Shortness of breath (Chronic) Hypercapnic respiratory failure, chronic (Chronic) Acute and chronic respiratory failure with hypercapnia (Chronic) Paroxysmal atrial fibrillation (Chronic) Chronic respiratory failure (Chronic) Silicosis (Chronic) History of implantable cardioverter-defibrillator (ICD) placement (Chronic) CHF (congestive heart failure) (Chronic) Hypertension (Chronic) Medical History: Medical History (Last Reviewed 05/06/18 @ 00:17 by Ronni Sotomayor DO) Hypersomnia (Chronic) G47.10 Pleural effusion (Inactive) J90 PETE (obstructive sleep apnea) (Chronic) G47.33 Stage 4 very severe COPD by GOLD classification (Chronic) J44.9 Tobacco abuse (Chronic) Z72.0 Shortness of breath (Chronic) R06.02 Confusion (Resolved) R41.0 Hypercapnic respiratory failure, chronic (Chronic) J96.12 Acute and chronic respiratory failure with hypercapnia (Chronic) J96.22 Paroxysmal atrial fibrillation (Chronic) I48.0 Chronic respiratory failure (Chronic) J96.10 Silicosis (Chronic) J62.8 Acute on chronic systolic (congestive) heart failure (Acute) I50.23 CHF (congestive heart failure) (Chronic) I50.9 Hypertension (Chronic) I10 Pneumothorax on left (Resolved) J93.9 Allergies aspirin Adverse Reaction (Verified 05/05/18 18:57) Upset Stomach Home Medications: Ambulatory Orders Medication Instructions Recorded Carvedilol [Coreg (Beta Kade)] 25 mg PO BID 09/09/15 Surgical History: Surgical History (Last Reviewed 05/06/18 @ 00:17 by Ronni Sotomayor DO) History of implantable cardioverter-defibrillator (ICD) placement (Chronic) Z95.810 Surgical History: total knee arthroplasty, - - back surgery, brain surgery for aneurysm. ICD insertion Psychiatric History: No pertinent psych hx Lives: Spouse/ Significant Other Smoking Status: Former smoker - quit early April 2018 Tobacco Use: Cigarettes Alcohol: None Drugs: None - *Family History Paternal Family History: Family History (Last Reviewed 05/06/18 @ 00:18 by Ronni Sotomayor DO) Father Lung disease Brother Cancer History Items: No pertinent history Maternal Family History: Family History (Last Reviewed 05/06/18 @ 00:18 by Ronni Sotomayor DO) Father Lung disease Brother Cancer History Items: No pertinent history Review of Systems Constitutional: Reports: Fatigue. Denies: Anorexia, Chills, Fever, Night Sweats, Malaise, Weakness, Weight Change Eyes: Denies: Vision Change HEENT: Reports: Post Nasal Drip. Denies: Difficulty Swallowing, Nasal Congestion, Sinus Congestion, Sore Throat Cardiovascular: Denies: Chest Pain, Chest Tightness, Edema, Light Headedness, Orthopnea, Palpitations, Paroxysmal Noc. Dyspnea, Syncope Respiratory: Reports: Cough, Shortness of breath upon exertion, Sputum production, Wheezing - occasional, - - SOB at rest has resolved. Denies: Hemoptysis Gastrointestinal: Denies: Abdominal Pain, Constipation, Diarrhea, Dyspepsia, Hematemesis, Hematochezia, Nausea, Melena, Vomiting Genitourinary: Denies: Dysuria, Frequency, Hematuria, Nocturia, Retention Musculoskeletal: Denies: Back Pain, Muscle pain Skin: Denies: Rash, Wounds Neurological: Denies: Balance problems, Change in Speech, Difficulty swallowing, Focal weakness, Tremor, Seizures Psychiatric: Reports: Depression. Denies: Anxiety Endocrine: Denies: Change in Body Habitus, Polydipsia, Polyuria Hematologic/ Lymphatic: Denies: Adenopathy, Anemia, Easy Bruising, Easy Bleeding Patient Problems: Active and Suspected Problems (Last Reviewed 05/06/18 @ 00:17 by Ronni Sotomayor DO) Pneumothorax (Acute) Elevated troponin (Acute) Subjective: The patient was seen and examined. He does not appear to be in any acute distress. Asking if he can go home. Objective: Clinical Impression(s) from Imaging Studies Chest X-Ray 05/05/18 19:30 IMPRESSION: Increasing interstitial thickening in the left lung possibly representing unilateral pulmonary interstitial edema in association with tiny left pleural effusion and pneumothorax. Question nodule in the right upper lobe with cavitation CT would be useful for further assessment if clinically indicated.. N.B. : The above information has been verbally conveyed by Elijah Munoz MD to Dr. Elijah Rock, Referring Physician, on 05/05/2018 20:56:32 (ET). Electronically Signed: Elijah Munoz MD at 20:22 EDT , Service support , N.B. : The above information has been verbally conveyed by Elijah Munoz MD to Dr. Elijah Rock, Referring Physician, on 05/05/2018 20:56:32 (ET). Chest CT 05/05/18 22:16 IMPRESSION: Small left basilar pneumothorax. Bilateral apical/suprahilar mass is. Neoplasm not excluded. Follow-up recommended. Centrilobular and paraseptal emphysema. Coronary artery disease and pacer. N.B. : The above information has been verbally conveyed by Lele Bearden MD to Dr. Elijah Rock, Covering Physician, on 05/05/2018 23:58:51 (ET). Electronically Signed: Lele Bearden MD at 23:37 EDT , Service support , N.B. : The above information has been verbally conveyed by Lele Bearden MD to Dr. Elijah Rock, Covering Physician, on 05/05/2018 23:58:51 (ET). Chest X-Ray 05/06/18 05:55 IMPRESSION: Small left pleural effusion. There is no evidence of pneumothorax. Electronically Signed: Oscar Aguilera MD at 9:44 EDT Tel , Service support , - Physical Exam General: Alert, Oriented x3, Cooperative, No apparent distress, - - Forgetful HEENT: Atraumatic, Normocephalic Oral: Moist Mucosa, No Gingival or Mucosal Lesions/ Ulcerations Neck: Supple, No JVD, No Nodes, Trachea Midline Lungs: - - Severely diminished throughout, otherwise clear to auscultation. Symmetric expansion, no dullness to percussion Cardiovascular: Normal S1, Normal S2, No murmurs, Irregular Rate, No rub noted, No Gallop Abdomen: Bowel Sounds Present, Soft, Non Tender, Non-Distended Extremities: No cyanosis, No edema, Clubbing, Diminished Peripheral Pulses Skin: No rashes, No breakdown Musculoskeletal: No Tenderness to Palpation of Joints or Extremities Lymphatic: No Cervical, Supraclavicular, or Inguinal Adenopathy Neurological: Cranial nerves II-XII grossly intact, Neuro grossly intact, Motor Exam 5/5 strength throughout Psych/Mental Status: Alert and oriented to time, place, person, mood and affect Vital Signs Temp Pulse Resp BP Pulse Ox 98 F 72 16 110/73 99 05/06/18 05:38 05/06/18 06:51 05/06/18 06:51 05/06/18 01:30 05/06/18 06:51 Oxygen Flow Rate (L/min) 3 Oxygen Delivery Method Nasal Cannula Weight: 158 lb 1.143 oz Body Mass Index (BMI) 22.0 Intake and Output for Last 24 Hours Intake Total 1100 / 1100 Output Total 325 / 325 Balance 775 / 775 Laboratory Tests Past 24 Hrs Sodium 145 Potassium 4.5 Chloride 96 L Carbon Dioxide 44.0 H Anion Gap 5 BUN 44 H Creatinine 1.30 Assessment/Plan All Active Problems (Last Reviewed 05/06/18 @ 00:17 by Ronni Sotomayor DO) Pneumothorax (Acute) Elevated troponin (Acute) COPD exacerbation (Acute) Acute on chronic respiratory failure with hypoxia and hypercapnia (Acute) Confusion (Resolved) Acute on chronic systolic (congestive) heart failure (Acute) Pneumothorax on left (Resolved) RECOMMENDATIONS 1. Leave on baseline of 3L oxygen supplementation 2. Encourage incentive spirometer/Acapella 3. Increase activity as tolerated 4. Continue bronchodilators, discontinue Pulmicort secondary to systemic steroids 5. Transition to oral steroids today to complete outpatient course through 05/09. Restart Pulmicort 05/10. 6. Hold BiPAP over the weekend 7. Repeat CT chest on Wednesday IMPRESSIONS 1. Acute on chronic hypoxic and hypercarbic respiratory failure, small left basilar pneumothorax Improved. May have had mucous plug causing acute distress, patient appears to be back at his baseline at this time. Patient does have diffuse scarring and past pneumo. He will need to continue with aggressive pulmonary toileting as at home, including incentive spirometer and Acapella. He was instructed on this. Did have elevated troponin, likely demand ischemia. Patient is a chronic CO2 retainer and does require BiPAP, however CT confirmed pneumothorax so NO BIPAP over the weekend. Will repeat chest CT on Wednesday to reevaluate pneumo. Patient does have end-stage COPD and residual small left effusion that was previously present. Transition patient to prior oral steroids through 05/09, then restart Pulmicort when course completed. 2. Bilateral spiculated lung masses Present greater than 2 years. No further diagnostic studies needed at this time. 3. Tobacco abuse, in remission Quit prior to last admit, denies any smoking at home when discharged. Encourage ongoing cessation. 4. PETE/stage IV very severe COPD/PAF/silicosis/systolic CHF/AICD/hypertension Complicates care, management, recovery, and prognosis. Continue home medications as indicated. Resume home inhaler regimen when discharged. Anticoagulated on Eliquis. Thank you for the opportunity to participate in this patient's care, please do not hesitate contact us with any further questions or concerns. This note was generated with [employer] dictation software. It may contain incorrect words, spelling, and punctuation that were not noted in checking the note before signing. 05/06/18 1105 <Electronically signed by Nola CHIU> Date Nola CHIU Cosigner Signature (if applicable): Date CC: Jet Arnett MD; Sally Allison MD Signed BASIC METABOLIC Collected: 05/06/2018 Status: F Source: [place] PROFILE (BMP) 3:50 AM [facility] REPOSITORY Order Comment: 'TROP' Serial specimen #1, #2 or #3: 2 TYPE CODE TESTS RESULT OUT OF RANGE REFERENCE UNITS LAB L501.0100 74-106 mg/dL High GLU 281 Result Comment: Glucose result greater than or equal to 200 mg/dL suggests DIABETES MELLITUS per A.D.A. criteria. Please note revised GLUCOSE reference range effective 2017. LAB L501.1000 7-18 mg/dL High BUN 44 LAB L501.1100 0.70-1.30 mg/dL Normal CREAT,SERUM 1.30 Result Comment: The validity of the calculated GFR AND GFRAA in patients over 70 years has not been determined. Clinical correlation is essential. LAB L501.1110 >60 mL/min Low EST GFR 58 Result Comment: Non- GFR Calc LAB L501.1115 >60 mL/min Normal EST GFR - AA 70 Result Comment: GFR Calc LAB L501.1255 ml/min Normal Estimated CRCL 54.39 LAB L501.1300 10-20 RATIO High BUN/CRE 33.8 LAB L501.2200 8.5-10 mg/dL Normal .1 CA 8.5 LAB L501.5300 136-14 mmol/L Normal 5 NA 145 LAB L501.5600 3.5-5. mmol/L Normal 1 K 4.5 LAB L501.5900 98-107 mmol/L Low CL 96 LAB L501.6100 21.0-3 mmol/L High 2.0 CO2 44.0 LAB L501.6200 5-15 Normal GAP 5 Performed By: #### L500.2500, L501.4010 #### [facility] [address] [place], [address] TROPONIN-I Collected: 05/06/2018 Status: F Source: [place] 3:50 AM [facility] REPOSITORY Order Comment: 'TROP' Serial specimen #1, #2 or #3: 2 TYPE CODE TESTS RESULT OUT OF RANGE REFERENCE UNITS LAB L501.4010 <0.045 ng/mL High 0.153 TROPONIN-I Result Comment: TROPONIN-I EXPECTED VALUES <0.045 Negative 0.045 - 0.590 Consistent with Cardiac Damage > OR = 0.600 Critical Value Not every elevated troponin is indicative of [place]. These values should be used with clinical judgement in examining the patient's clinical picture for diagnosis. To establish a diagnosis of [place] versus myocardial injury, there must be a demonstrated rise and/or fall in the troponin values, in addition to ischemic symptoms, EKG changes, new regional wall motion abnormality, and/or angiographical evidence. PLEASE NOTE: REFERENCE RANGES EDITED 18 Performed By: #### L500.2500, L501.4010 #### [facility] [address] [place], [address] TROPONIN-I Collected: 05/06/2018 Status: F Source: [place] 1:45 AM [facility] REPOSITORY Order Comment: 'TROP' Serial specimen #1, #2 or #3: 2 TYPE CODE TESTS RESULT OUT OF RANGE REFERENCE UNITS LAB L501.4010 <0.045 ng/mL High 0.163 TROPONIN-I Result Comment: TROPONIN-I EXPECTED VALUES <0.045 Negative 0.045 - 0.590 Consistent with Cardiac Damage > OR = 0.600 Critical Value Not every elevated troponin is indicative of [place]. These values should be used with clinical judgement in examining the patient's clinical picture for diagnosis. To establish a diagnosis of [place] versus myocardial injury, there must be a demonstrated rise and/or fall in the troponin values, in addition to ischemic symptoms, EKG changes, new regional wall motion abnormality, and/or angiographical evidence. PLEASE NOTE: REFERENCE RANGES EDITED 18 Performed By: #### L501.4010 #### [facility] [address] [place], [address] CHEST 1 VIEW Observed: 05/06/2018 Status: F Source: [place] (PORTABLE) 1:11 AM [facility] REPOSITORY [facility] [address] [place] [address] Chest 1 View (Portable) MR#: [id number] Acct: [id number] Name: JIMMY BUTLER Rep #: [id number] : 1950 M 67 From: Oscar Aguilera MD PCP: Sally Allison MD Status: ADM IN Study: Chest 1 View (Portable) Date of Exam: 05/06/18 Exam# [id number] Ordering Dr: Ronni Sotomayor DO STUDY: X-RAY CHEST REASON FOR EXAM: Male, 67 years old. LEFT PNEUMOTHORAX TECHNIQUE: Single AP portable view of the chest. COMPARISON: None. FINDINGS: There are interstitial fibrotic changes of the lungs. There is a small left pleural effusion. Normal size heart. Normal mediastinum and yee. Normal visualized pulmonary arteries. Normal visualized aortic arch and descending thoracic aorta. Normal visualized thoracic spine. Normal visualized ribs, clavicles, and shoulders. There is no demonstrated abnormality of the visualized soft tissue structures of the upper abdomen. RAD/Chest 1 View (Portable) IMPRESSION: Small left pleural effusion. There is no evidence of pneumothorax. Electronically Signed: Oscar Aguilera MD at 9:44 EDT Tel , Service support , CC: Ronni Sotomayor DO; Sally Allison MD [employer]ocket System Crewmember: Signed EMERGENCY DEPARTMENT Observed: 05/06/2018 Status: F Source: [place] SUMMARY 12:44 AM [facility] REPOSITORY [facility] Medical Records Department [address] [place] [address] Emergency Department Summary 05/05/18 1933 MR#: [id number] Acct: [id number] Name: JIMMY BUTLER Rep #: [id number] : 1950 67 From: Elijah Rock MD PCP: Sally Allison MD Status: ADM IN - ER Visit Summary Date of Service: 05/05/18 Chief Complaint: Shortness of breath History of Present Illness: The patient is a 67 M 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 Also has a pacemaker defibrillator and a history of A. fib. Recently was hospitalized that was from the hospital for COPD flare and discharged yesterday. Today's getting progressively more short of breath. No chest pain. No hemoptysis. No history of DVT or PE. He also has a history of CHF and is has bipedal edema. Physical Examination: Male respiratory distress. Vital signs are stable. His pulse ox currently on 3 L is 97%. That is his normal home O2. H exam unremarkable. Neck nontender no JVD. Lungs prolonged story phase bilaterally. Externally wheezing throughout both sides. Equal symmetrical. Heart regular rhythm rate about 80 no murmur. Chest nontender. No subcu air. Abdomen soft nontender. Moving all 4 extremities. Neurovascular intact. Bipedal edema. Calves nontender no cords. Neurologically is awake alert without focal motor deficits. Test Results: Chest x-ray portable one view shows a small left pneumothorax. Chronic changes. Read by myself the radiologist. CT of the chest was done without contrast to define the size of a pneumothorax it appears to be small. There are also possible spiculated lesions and both upper lungs and will need further evaluation to rule out any type of malignancy. I did discuss the CAT scan with the radiologist. His CBC shows a white count of 6 a hemoglobin of 9.8 which is baseline anemia. Platelet count of 118,000. Electrolytes show a chloride of 97 and CO2 greater than 45. Normal creatinine. His troponin is elevated 0.181 it has been increasing over the last several troponins. This will need further evaluation. Emergency Department Course and Treatment: She will be treated with IV Solu-Medrol and aerosols. Treatment Plan: P exam patient is doing much better 2350. He is breathing much easier. I went over all test results with he and his . They did develop a prior small pneumothorax. And are agreeable with admission. I very spoken to the hospitalist. Disposition: Admission Impression: Acute exacerbation COPD Small left pneumothorax Upper lobe lung lesions of uncertain etiology Elevated troponin This note was generated with DeY[employer] software. It may contain incorrect words, spelling, and punctuation that were not noted in review of the chart prior to signing ED Disposition - Plan for ED Patient: Chief Complaint: Shortness of Breath Referrals: Sally Allison MD [Primary Care Provider] - What to do if you have Problems For any increased pain, shortness of breath, bleeding, nausea or vomiting, chest pain, or any unexpected problems, contact your Primary Care Provider. Call [facility] ([phone]) or report to the closest Emergency Room. Call 911 if necessary. 05/06/18 0044 <Electronically signed by Elijah Rock MD> Date Elijah Rock MD Cosigner Signature (If Indicated): Date CC: Sally Allison MD HISTORY AND PHYSICAL Observed: 05/06/2018 Status: F Source: [place] EXAM 12:23 AM [facility] REPOSITORY [facility] Medical Records Department [address] [place] [address] History and Physical 05/06/18 0015 MR#: [id number] Acct: [id number] Name: JIMMY BUTLER Rep #: [id number] : 1950 67 From: Ronni Sotomayor DO PCP: Sally Allison MD Status: REG ER Y Location: ED Problem List (1) Pneumothorax Status: Acute (2) Elevated troponin Status: Acute (3) COPD exacerbation Status: Acute History of Present Illness Date of Admission: 05/05/18 Chief Complaint: shortness of breath. The patient is a 67 year old M who was just discharged on the with acute on chronic respiratory failure due to COPD exacerbation. At home on the patient was doing well and his left and when the patient's daughter went to see him he was a short of breath. Patient was using his oxygen and was coughing up phlegm. Patient was brought to the emergency room for evaluation. In the emergency room patient underwent imaging that did show continued left sided pneumothorax but improved. Patient received Solu- Medrol and aerosols. Patient is currently breathing fine. Patient is currently on 4 L and is on 3 L at home. Patient has been using his BiPAP at home when he sleeps. Symptoms are similar to prior episodes of COPD exacerbation and respiratory failure. 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 classification (Chronic) Tobacco abuse (Chronic) Shortness of breath (Chronic) Hypercapnic respiratory failure, chronic (Chronic) Acute and chronic respiratory failure with hypercapnia (Chronic) Paroxysmal atrial fibrillation (Chronic) Chronic respiratory failure (Chronic) Silicosis (Chronic) History of implantable cardioverter-defibrillator (ICD) placement (Chronic) CHF (congestive heart failure) (Chronic) Hypertension (Chronic) Medical History: Medical History (Last Reviewed 05/06/18 @ 00:17 by Ronni Sotomayor DO) Hypersomnia (Chronic) G47.10 Pleural effusion (Inactive) J90 PETE (obstructive sleep apnea) (Chronic) G47.33 Stage 4 very severe COPD by GOLD classification (Chronic) J44.9 Tobacco abuse (Chronic) Z72.0 Shortness of breath (Chronic) R06.02 Confusion (Resolved) R41.0 Hypercapnic respiratory failure, chronic (Chronic) J96.12 Acute and chronic respiratory failure with hypercapnia (Chronic) J96.22 Paroxysmal atrial fibrillation (Chronic) I48.0 Chronic respiratory failure (Chronic) J96.10 Silicosis (Chronic) J62.8 Acute on chronic systolic (congestive) heart failure (Acute) I50.23 CHF (congestive heart failure) (Chronic) I50.9 Hypertension (Chronic) I10 Pneumothorax on left (Resolved) J93.9 Allergies aspirin Adverse Reaction (Verified 05/05/18 18:57) Upset Stomach Home Medications: Ambulatory Orders Medication Instructions Recorded Carvedilol [Coreg (Beta Kade)] 25 mg PO BID 09/09/15 Surgical History: Surgical History (Last Reviewed 05/06/18 @ 00:17 by Ronni Sotomayor DO) History of implantable cardioverter-defibrillator (ICD) placement (Chronic) Z95.810 Surgical History: total knee arthroplasty, - - back surgery, brain surgery for aneurysm. ICD insertion Psychiatric History: No pertinent psych hx Smoking Status: Former smoker Tobacco Use: Non-smoker - Has not smoked since the Alcohol: None Drugs: None - *Family History Paternal Family History: Family History (Last Reviewed 05/06/18 @ 00:18 by Ronni Sotomayor DO) Father Lung disease Brother Cancer History Items: No pertinent history Maternal Family History: Family History (Last Reviewed 05/06/18 @ 00:18 by Ronni Sotomayor DO) Father Lung disease Brother Cancer History Items: No pertinent history Review of Systems Constitutional: Denies: Anorexia, Chills, Fever Eyes: Denies: Blurred vision, Double vision HEENT: Denies: Head Aches, Sinus Congestion, Sinus Drainage Cardiovascular: Denies: Chest Pain, Palpitations Respiratory: Reports: Cough, Shortness of Breath, Sputum production Gastrointestinal: Denies: Abdominal Pain, Nausea, Vomiting Genitourinary: Denies: Dysuria Musculoskeletal: Denies: Joint Pain, Joint Tenderness Skin: Denies: Rash, Wounds Neurological: Denies: Numbness, Tingling, Focal weakness Psychiatric: Denies: Anxiety, Depression Hematologic/ Lymphatic: Denies: Easy Bruising, Easy Bleeding, Hx of blood clot Comment: Otherwise all review systems are negative except for as mentioned above in HPI and ROS. VTE Information - Inpt Only VTE Present on Admission: No VTE Pharm Prophylaxis ordered?: Yes Patient Problems: Active and Suspected Problems (Last Updated 05/04/18 @ 09:00 by Nola Guzman, [employer]-C) Pneumothorax (Acute) Elevated troponin (Acute) - Physical Exam General: Alert, Cooperative, No apparent distress, - - No respiratory distress. No conversational dyspnea. HEENT: Atraumatic, Normocephalic Oral: Moist Mucosa, No Gingival or Mucosal Lesions/ Ulcerations Neck: No Nodes, Thyroid Normal Size and Texture Lungs: Diminished, Wheezes Cardiovascular: Regular rate, Regular Rhythm, Normal S1, Normal S2 Abdomen: Bowel Sounds Present, Soft, Non Tender, Non-Distended Extremities: No edema, No Calf Tenderness Skin: No rashes, No breakdown Musculoskeletal: No Tenderness to Palpation of Joints or Extremities, No Muscle Wasting Neurological: Neuro grossly intact, Muscle tone normal, Sensory exam intact to light touch and pain Psych/Mental Status: Appropriate, Flat Affect Vital Signs Temp Pulse Resp BP Pulse Ox 36.5 C L 71 17 107/65 100 05/05/18 18:57 05/05/18 23:15 05/05/18 23:15 05/05/18 23:15 05/05/18 23:15 Oxygen Flow Rate (L/min) 3 Oxygen Delivery Method Nasal Cannula Weight: 73.936 kg Body Mass Index (BMI) 22.7 Laboratory Tests Past 24 Hrs WBC 6.3 RBC 3.66 L Hgb 9.8 L Hct 34.7 L MCV 94.8 H MCH 26.8 L MCHC 28.2 L RDW 14.8 H RDW Differential 50.7 H Clinical Impression(s) from Imaging Studies Chest X-Ray 05/05/18 19:30 IMPRESSION: Increasing interstitial thickening in the left lung possibly representing unilateral pulmonary interstitial edema in association with tiny left pleural effusion and pneumothorax. Question nodule in the right upper lobe with cavitation CT would be useful for further assessment if clinically indicated.. N.B. : The above information has been verbally conveyed by Elijah Munoz MD to Dr. Elijah Rock, Referring Physician, on 05/05/2018 20:56:32 (ET). Electronically Signed: Elijah Munoz MD at 20:22 EDT , Service support , N.B. : The above information has been verbally conveyed by Elijah Munoz MD to Dr. Elijah Rock, Referring Physician, on 05/05/2018 20:56:32 (ET). Chest CT 05/05/18 22:16 IMPRESSION: Small left basilar pneumothorax. Bilateral apical/suprahilar mass is. Neoplasm not excluded. Follow-up recommended. Centrilobular and paraseptal emphysema. Coronary artery disease and pacer. N.B. : The above information has been verbally conveyed by Lele Bearden MD to Dr. Elijah Rock, Covering Physician, on 05/05/2018 23:58:51 (ET). Electronically Signed: Lele Bearden MD at 23:37 EDT , Service support , N.B. : The above information has been verbally conveyed by Lele Bearden MD to Dr. Elijah Rock, Covering Physician, on 05/05/2018 23:58:51 (ET). Assessment/Plan All Active Problems (Last Updated 05/04/18 @ 09:00 by Nola Guzman NP-C) Pneumothorax (Acute) Elevated troponin (Acute) COPD exacerbation (Acute) Acute on chronic respiratory failure with hypoxia and hypercapnia (Acute) Confusion (Resolved) Acute on chronic systolic (congestive) heart failure (Acute) Pneumothorax on left (Resolved) 1. Acute hypercapnic respiratory failure * Patient is otherwise hypercapnic and his BMP shows his CO2 is greater than 45 which he has been before. I feel that his respiratory stress is due to his underlying lung disease but patient may have had a transient mucous plug that may have caused his acute decline. Patient is fine now but will monitor him overnight and watch him. 2. Acute COPD exacerbation * Patient is diminished and does have wheezes sure this is actual worsening of where he was before this is just a continued improvement * Would continue with Solu-Medrol for now and bronchodilators * Consult pulmonology for further input 3. Left-sided pneumothorax * Small and not necessary for a chest tube at this time. * We will recheck chest x-ray in the morning 4. Advanced care planning: Discussed with the patient's states the patient is DNR Comfort Care arrest and no intubation 5. DVT prophylaxis patient is already anticoagulated on Eliquis. Patient seen and examined on the and billing to reflect as such. Code Visit Inpatient E AND M: 82924 Init Hosp L3 05/06/18 0023 <Electronically signed by Ronni Sotomayor DO> Date Ronni Sotomayor DO Cosign Signature: Date (if applicable) CC: Ronni Sotomayor DO; Sally Allison MD Signed CHEST WITHOUT Observed: 05/05/2018 Status: F Source: [place] CONTRAST 10:17 PM [facility] REPOSITORY [facility] Imaging Services [address] [place] [address] [place] [address] Chest without Contrast MR#: [id number] Acct: [id number] Name: JIMMY BUTLER Rep #: [id number] : 1950 M 67 From: Lele Bearden MD PCP: Keegan NGUYEN,Sally Status: REG ER Study: Chest without Contrast Date of Exam: 05/05/18 Exam# [id number] Ordering Dr: Elijah Rock MD STUDY: CT CHEST WITHOUT CONTRAST REASON FOR EXAM: Male, 67 years old. Pneumothorax RADIATION DOSAGE (If Supplied By Facility): CTDIvol = ( 9.30 ) mGy, DLP = ( 332.19 ) mGycm TECHNIQUE: Transaxial imaging was performed without the administration of intravenous contrast material. Individualized dose optimization techniques were used for this CT. COMPARISON: Chest x-ray from today and CT chest September 05, 2017 FINDINGS: Centrilobular and paraseptal emphysema. Spiculated mass in the suprahilar region right lung measuring up to 3.1 x 1.5 cm in maximal transverse dimensions. There is a 2 x 2.2 cm spiculated mass in the left apex. There is a small left effusion. There is a small basilar pneumothorax on the left. Normal heart and pericardium. Pacer wires right heart. Calcific coronary artery disease. Normal mediastinum. Normal hilar regions. Normal unenhanced pulmonary arteries. Normal aorta arch and descending thoracic aorta. Normal osseous structures. There is no demonstrated abnormality of the visualized upper abdomen. CT/Chest without Contrast IMPRESSION: Small left basilar pneumothorax. Bilateral apical/suprahilar mass is. Neoplasm not excluded. Follow-up recommended. Centrilobular and paraseptal emphysema. Coronary artery disease and pacer. N.B. : The above information has been verbally conveyed by Lele Bearden MD to Dr. Elijah Rock, Covering Physician, on 05/05/2018 23:58:51 (ET). Electronically Signed: Lele Bearden MD at 23:37 EDT , Service support , N.B. : The above information has been verbally conveyed by Lele Bearden MD to Dr. Elijah Rock, Covering Physician, on 05/05/2018 23:58:51 (ET). CC: Elijah Rock MD; Sally Allison MD [employer] Crewmember: Signed CHEST 1 VIEW Observed: 05/05/2018 Status: F Source: [place] (PORTABLE) 7:32 PM [facility] REPOSITORY [facility] Imaging Services [address] [place] [address] Chest 1 View (Portable) MR#: [id number] Acct: [id number] Name: JIMMY BUTLER Rep #: [id number] : 1950 M 67 From: Elijah Munoz MD PCP: Sally Allison MD Status: REG ER Study: Chest 1 View (Portable) Date of Exam: 05/05/18 Exam# [id number] Ordering Dr: Elijah Rock MD STUDY: X-RAY CHEST REASON FOR EXAM: Male, 67 years old. Increased shortness of breath TECHNIQUE: AP portable COMPARISON: May 02, 2018 FINDINGS: There is bilateral interstitial thickening greater on the left. There appears to be a tiny left pleural effusion and small pneumothorax... There appears to be very small nodular opacity in the right upper lobe with possible cavitation. Heart is mildly enlarged. Normal mediastinum and yee. Normal visualized pulmonary arteries. Tortuous mildly calcified aortic arch and descending thoracic aorta. Pacer noted on the left with electrodes in satisfactory position. Normal visualized thoracic spine. Normal visualized ribs, clavicles, and shoulders. Postsurgical changes status post cervical fusion. There is no demonstrated abnormality of the visualized soft tissue structures of the upper abdomen. The interstitial thickening has increased in the left lung since previous study.. Pneumothorax appears slightly smaller. RAD/Chest 1 View (Portable) IMPRESSION: Increasing interstitial thickening in the left lung possibly representing unilateral pulmonary interstitial edema in association with tiny left pleural effusion and pneumothorax. Question nodule in the right upper lobe with cavitation CT would be useful for further assessment if clinically indicated.. N.B. : The above information has been verbally conveyed by Elijah Munoz MD to Dr. Elijah Rock, Referring Physician, on 05/05/2018 20:56:32 (ET). Electronically Signed: Elijah Munoz MD at 20:22 EDT , Service support , N.B. : The above information has been verbally conveyed by Elijah Munoz MD to Dr. Elijah Rock, Referring Physician, on 05/05/2018 20:56:32 (ET). CC: Elijah Rock MD; Sally Allison MD [employer] Crewmember: Signed CBC W/DIFF, AUTOMATED Collected: 05/05/2018 Status: F Source: [place] 7:18 PM [facility] REPOSITORY TYPE CODE TESTS RESULT OUT OF RANGE REFERENCE UNITS LAB L100.1000 4.4-11.0 K/mm3 Normal WBC 6.3 LAB L100.1200 4.6-6.2 M/mm3 Low RBC 3.66 LAB L100.1300 13.0-16.5 g/dl Low HGB 9.8 LAB L100.1400 40-54 % Low HCT 34.7 LAB L100.1500 80-94 fL High MCV 94.8 LAB L100.1600 27.0-32.0 pg Low MCH 26.8 LAB L100.1700 32-36 g/gl Low MCHC 28.2 LAB L100.1810 11.6-14.6 % High RDW CV 14.8 LAB L100.1820 35.1-43.9 fl High RDW SD 50.7 LAB L100.1900 150-450 K/mm3 Low PLT 118 LAB L100.2000 6.2-12.0 fl Normal MPV 9.1 LAB L100.2100 47-70 % High NEUT% 78.3 LAB L100.2200 19-41 % Normal LY% 20.2 LAB L100.2300 0-10 % Normal MONO% 1.3 LAB L100.2400 0-5 % Normal EO% 0.2 LAB L100.2500 0-1 % Normal BASO% 0.0 LAB L100.2550 0.0-0.9 % Normal IM GRAN % 0.000 Result Comment: IG% - Immature Granulocytes (promyelocytes, myelocytes and metamyelocytes) > 1% indicates that a LEFT SHIFT is Present. LAB L100.2620 2.0-7.7 X10 3/uL Normal Absolute Neut 4.9 LAB L100.2720 0.83-4.51 X10 3/ul Normal Absolute Lymph 1.27 Performed By: #### L100.0100 #### [facility] [address] [place], [address] BASIC METABOLIC Collected: 05/05/2018 Status: C Source: [place] PROFILE (BMP) 7:18 PM [facility] REPOSITORY TYPE CODE TESTS RESULT OUT OF RANGE REFERENCE UNITS LAB L501.0100 74-106 mg/dL Normal GLU 84 Result Comment: Please note revised GLUCOSE reference range effective 2017. LAB L501.1000 7-18 mg/dL High BUN 36 LAB L501.1100 0.70-1.30 mg/dL Normal CREAT,SERUM 1.12 Result Comment: The validity of the calculated GFR AND GFRAA in patients over 70 years has not been determined. Clinical correlation is essential. LAB L501.1110 >60 mL/min Normal EST GFR 69 Result Comment: Non- GFR Calc LAB L501.1115 >60 mL/min Normal EST GFR - AA 83 Result Comment: GFR Calc LAB L501.1255 ml/min Normal Estimated CRCL 65.10 LAB L501.1300 10-20 RATIO High BUN/CRE 32.1 LAB L501.2200 8.5-10 mg/dL Normal .1 CA 9.0 LAB L501.5300 136-14 mmol/L Normal 5 NA 143 LAB L501.5600 3.5-5. mmol/L Normal 1 K 4.3 LAB L501.5900 98-107 mmol/L Low CL 97 LAB L501.6100 21.0-3 mmol/L High 2.0 CO2 alert > 45.0 Result Comment: RESULTS CALLED TO [place] 05/05/182025 Bienvenido Maldonado. REPORT READ BACK BY SAME . LAB L501.6200 5-15 Normal Test not performed GAP Performed By: #### L500.2500, L501.4010 #### [facility] [address] [place], [address] TROPONIN-I Collected: 05/05/2018 Status: F Source: [place] 7:18 PM [facility] REPOSITORY TYPE CODE TESTS RESULT OUT OF RANGE REFERENCE UNITS LAB L501.4010 <0.045 ng/mL High 0.181 TROPONIN-I Result Comment: TROPONIN-I EXPECTED VALUES <0.045 Negative 0.045 - 0.590 Consistent with Cardiac Damage > OR = 0.600 Critical Value Not every elevated troponin is indicative of [place]. These values should be used with clinical judgement in examining the patient's clinical picture for diagnosis. To establish a diagnosis of [place] versus myocardial injury, there must be a demonstrated rise and/or fall in the troponin values, in addition to ischemic symptoms, EKG changes, new regional wall motion abnormality, and/or angiographical evidence. PLEASE NOTE: REFERENCE RANGES EDITED 18 Performed By: #### L500.2500, L501.4010 #### [facility] [address] [place], [address] PROGRESS Observed: 05/05/2018 Status: COMPLETED Source: [place] 4:02 PM [facility] REPOSITORY HNO ID: [id number] Author: Robbin Clarke (Catalina) Service: (none) Author Type: Registered Nurse Type: Progress Notes Filed: 06/13/2018 12:02 PM Note Text: PRIMARY CARE COORDINATION CHART REVIEW Patient identified for Care Coordination from: Pcp / [facility] D/C 05/04/18 Last PCP office visit: 03/30/2018 Next OV: 05/09/18 OV Chriss Sanon NP CHRONIC DX: Copd, Htn Afib, AICD CARE GAPS: UTILIZATION WITHIN THE LAST 12 MONTHS: [facility] D/C 05/04/18 PRIMARY CARE COORDINATION OUTREACH PLAN: Smoking status undetermined, Oxygen usage Tricia Siegel RN May 05, 2018 4:16 PM PROGRESS Observed: 05/05/2018 Status: COMPLETED Source: [place] 2:08 PM [facility] REPOSITORY HNO ID: [id number] Author: Ina Olvera EARL Service: (none) Author Type: (none) Type: Progress Notes Filed: 05/05/2018 2:59 PM Note Text: Patient returned call and scheduled hospital follow up with Chriss Sanon NP 05/09/2018 at 9 am. PROGRESS Observed: 05/05/2018 Status: COMPLETED Source: [place] 12:42 PM [facility] REPOSITORY HNO ID: [id number] Author: Enma Galdamez Ma Service: (none) Author Type: (none) Type: Progress Notes Filed: 05/05/2018 2:59 PM Note Text: TRANSITION CARE MANAGEMENT (TCM) INITIAL CONTACT Journalism Professor Outreach Provider Action/FYI: Brought to [facility] ER on 05/01/18 for 3 days of SOB, worse with exertion, wheezing and fatigue. Pt was discharged from [facility] on 05/04/18 for acute on chronic respiratory failure and COPD exacerbation. Pt on oxygen. Follows with [facility] [employer] Dr. Arnett at [facility]. Pt has palliative care. Pt uses a BiPAP machine for hie PETE. Does smoke 3/4 to 1/2 ppd. Uses 3 liters of oxygen, but does not wear all the time. Chest xray and labs done while admitted, had consult on 05/02/[address] Arnett. Initial contact with patient post discharge, spoke to remarks: LEFT MESSAGE FOR PT TO CALL BACK. PLEASE SET UP HOSPITAL FOLLOW UP WITHIN 14 DAYS OF 05/04/18. Patient identified by name and . SUMMARY: -Pt discharged from [facility] on 05/04/18. -Admitted for: 1. Acute on chronic respiratory failure with hypoxia and hypercapnia (Acute) 2. COPD exacerbation (Acute) Do you have a hospital follow up appointment with your PCP? Appointment on 05/09/2018 with Chriss Sanon NP. No. Assist patient with follow-up appointment within 1-14 calendar days from discharge date. If patient prefers not to schedule follow-up appointment at this time, notify PCP. MEDICATIONS: Many patients have questions or concerns about their medications once they are home. Were you prescribed any new medications? Yes Were you told to hold any medications? If yes, what are those medications? Prednisone 40 mg daily Were any of your medications discontinued? No Do you have any questions about getting or taking your medications? No Your discharge instructions/After visit Summary (AVS) are important in guiding you through the recovery process. Is there anything I might help you understand? No Do you have all the necessary equipment and supplies at home? Yes Medical records from recent hospitalization: Forms in office ARTURO Observed: 05/05/2018 Status: COMPLETED Source: [place] 12:00 AM [facility] REPOSITORY Patient Outreach (FAMPWS) JIMMY BUTLER ([id number]) 1950 M Date Time Provider Department 05/05/18 ROBBIN BIRD) [facility] During your visit today, we recorded the following information about you: Tricia Siegel RN 06/13/2018 12:02 PM Signed PRIMARY CARE COORDINATION CHART REVIEW Patient identified for Care Coordination from: Pcp / [facility] D/C 05/04/18 Last PCP office visit: 03/30/2018 Next OV: 05/09/18 OV Chriss Sanon NP CHRONIC DX: Copd, Htn Afib, AICD CARE GAPS: UTILIZATION WITHIN THE LAST 12 MONTHS: [facility] D/C 05/04/18 PRIMARY CARE COORDINATION OUTREACH PLAN: Smoking status undetermined, Oxygen usage Tricia Siegel RN May 05, 2018 4:16 PM Allergies As of Date: 05/05/2018 Noted Allergy Reaction ASA (ASPIRIN) 07/19/2017 8 - GI Upset ASA (SALICYLATES) 01/29/2006 8 - GI Upset Date Reviewed: 04/08/2018 Reviewed by: Judith Mcintosh Ma - Fully Assessed Reason for Visit: [facility] [8662] Cmt: [facility] D/C 05/04/18 Reason For Visit History Recorded Prescriptions as of 05/05/2018 Sig: NYSTATIN 100,000 UNIT/ML ORAL* Take 5 mL by mouth three time* X OMEPRAZOLE 20 MG CAPSULE,MARY KAY* Take 1 capsule by mouth twice* X GABAPENTIN 100 MG CAPSULE Take 1 capsule by mouth twice* X FERROUS SULFATE 325 MG (65 MG* Take 1 tablet by mouth daily * X IPRATROPIUM-ALBUTEROL 0.5 MG-* Inhale 3 mL as instructed cooper* LISINOPRIL 20 MG TABLET Take 1 tablet by mouth once d* CARVEDILOL 25 MG TABLET TAKE 1 TABLET BY MOUTH TWICE * DIGOXIN 250 MCG TABLET Take 1 tablet by mouth once d* ELIQUIS 5 MG TABLET TAKE 1 TABLET BY MOUTH TWICE * FUROSEMIDE 20 MG TABLET TAKE 1 TABLET BY MOUTH TWICE * NITROFURANTOIN MONOHYDRATE AND * Take 1 capsule by mouth once * FINASTERIDE 5 MG TABLET Take 1 tablet by mouth once d* MEMANTINE 28 MG CAPSULE SPRIN* Take 1 capsule by mouth once * POTASSIUM CHLORIDE ER 10 MEQ * Take 1 tablet by mouth daily * ISOSORBIDE MONONITRATE ER 30 * TAKE 1 TABLET BY MOUTH EVERY * X HYDRALAZINE 50 MG TABLET Take 1 tablet by mouth three * SPIRONOLACTONE 25 MG TABLET Take 1 tablet by mouth once d* BIPAP LEVALBUTEROL 0.63 MG/3 ML BIBIANA* Use 3 mL via nebulizer every * X BUDESONIDE 0.5 MG/2 ML SUSPEN* NITROGLYCERIN 0.4 MG SUBLINGU* Dissolve 1 tablet under the t* BUDESONIDE 180 MCG/ACTUATION * Inhale 2 Puffs as instructed * PREDNISONE 10 MG TABLET Take 10 mg by mouth once asad* COMPOUNDED PRESCRIPTION [facility]* COMPOUNDED PRESCRIPTION Oxygen 3 liters CYANOCOBALAMIN (VIT B-12) 1,0* Dissolve 1 tablet under the t* Problem List As Of Date 05/05/2018 Noted Resolved Hypertension [I10] INVALID FOR* Lumbar disc disease [M51.9] INVALID FOR* Cervical disc disease [M50.90] INVALID FOR* COPD (chronic obstructive pulmonary disease) [J*INVALID FOR* BPH (benign prostatic hyperplasia) [N40.0] INVALID FOR* Urethral stricture [N35.9] INVALID FOR* Difficulty voiding [R39.198] INVALID FOR* Frequency of urination [R35.0] INVALID FOR* Urinary retention [R33.9] INVALID FOR* Anemia [D64.9] INVALID FOR* Tobacco abuse [Z72.0] INVALID FOR* Nonischemic cardiomyopathy (HCC) [I42.8] INVALID FOR* Atrial fibrillation with rapid ventricular resp*INVALID FOR* AICD (automatic cardioverter/defibrillator) pre*INVALID FOR* Spontaneous pneumothorax [J93.83] INVALID FOR* Swallowing difficulty [R13.10] INVALID FOR* More... PETE treated with BiPAP [G47.33] INVALID FOR* More... Encounter Status:Closed by TRICIA SIEGEL on 06/13/18 DISCHARGE INSTRUCTION Observed: 05/04/2018 Status: F Source: [place] 11:00 AM [facility] REPOSITORY [facility] Medical Records Department [address] [place] [address] Instructions for Home/Discharge Instructions 05/04/18 1055 MR#: [id number] Acct: [id number] Name: JIMMY BUTLER Rep #: [id number] : 1950 67 From: Deja CHIU PCP: Sally Allison MD Status: ADM IN - Discharge Diagnoses Current Active Problems: Current Active and Chronic Problems (Last Updated 05/04/18 @ 09:00 by Nola Gzuman NP-C) COPD exacerbation (Acute) Acute on chronic respiratory failure with hypoxia and hypercapnia (Acute) You will use the following diet at home:: Cardiac Discharge Activity: Return to Normal Activity Call your doctor if you observe: Fever of 101 or Higher, Shortness of breath, Dizziness, Fainting spells, Chest pain Allergies/Adverse Reactions: Allergies aspirin Adverse Reaction (Verified 11/17/17 12:54) Upset Stomach Medications to take at Discharge Carvedilol [Coreg (Beta Kade)] 25 mg PO BID 09/09/15 Finasteride [Proscar] 5 mg PO DAILY 09/09/15 Vit B12/Levomefolate/Vit B6/B2 [l-Methyl-Mc Tablet] 1 tab PO 1700 09/09/15 Apixaban [Eliquis] 5 mg PO BID 06/19/16 Isosorbide Mononitrate [Imdur] 30 mg PO DAILY 06/19/16 Oxygen, Home [Home Oxygen] 3 lpm NASAL DAILY PRN PRN 08/12/16 hydrALAZINE [Apresoline] 50 mg PO TID 08/12/16 Spironolactone [Aldactone] 25 mg PO DAILY 12/11/16 Lisinopril [Zestril] 20 mg PO QHS 03/19/17 Acetaminophen [Tylenol Tablet] 650 mg PO Q6H PRN PRN #0 tab 03/22/17 Ferrous Sulfate 325 mg PO DAILY@0800 04/02/17 Gabapentin [Neurontin] 100 mg PO BID 04/02/17 Omeprazole [Prilosec] 20 mg PO BID 04/02/17 predniSONE tablet 10 mg PO DAILY 04/02/17 memantine 5 mg tablet 28 mg PO QDAY 11/09/17 nystatin 100,000 unit/mL oral suspension 5 ml MUCOUS MEMBRANE TID #250 ml 11/17/17 ipratropium-albuterol 0.5 mg-3 mg(2.5 mg base)/3 mL nebulization soln 3 ml INHALATION Q4H PRN PRN #180 ml 11/18/17 budesonide 0.5 mg/2 mL suspension for nebulization 0.5 mg INHALATION Q6H #60 ml 11/19/17 Cyanocobalamin [Vitamin B12] 1,000 mcg PO DAILY@0800 05/02/18 Digoxin [Lanoxin] 250 mcg PO DAILY 05/02/18 Furosemide [Lasix] 40 mg PO BID@1000,1800 05/02/18 Levalbuterol HCl [Xopenex] 3 ml INHALATION Q6H PRN PRN 05/02/18 Nitroglycerin 0.4 mg SL PRN PRN 05/02/18 Potassium Chloride [K-Dur] 20 meq PO DAILY 05/02/18 Prednisone 10 mg PO QDAY 05/02/18 Prednisone 40 mg PO DAILY 4 Days #8 tab 05/04/18 The following prescriptions were given: Prednisone 40 mg PO DAILY 4 Days #8 tab Primary Care Physician: Sally Allison MD [Primary Care Provider] - Please follow up with your Primary Care Physician in: 1 Week Please Follow Up With: Jet Arnett MD - May see [employer] When: 2 Weeks Proposed Discharge Date: 05/04/18 05/04/18 1100 <Electronically signed by Deja CHIU> Date Deja CHIU CC: Sally Allison MD BEDSIDE GLUCOSE Collected: 05/03/2018 Status: F Source: [place] 6:42 AM [facility] REPOSITORY TYPE CODE TESTS RESULT OUT OF REFERENCE UNITS RANGE LAB L501.080 70-110 mg/dL High BEDSIDE GLU 141 Result Comment: MANAGEMENT OF PATIENT CARE PER NURSING PROTOCOL Performed By: #### L501.080 #### [facility] Point of Care [address] [place], [place] [address] BASIC METABOLIC Collected: 05/03/2018 Status: F Source: [place] PROFILE (BMP) 6:00 AM [facility] REPOSITORY TYPE CODE TESTS RESULT OUT OF RANGE REFERENCE UNITS LAB L501.0100 74-106 mg/dL High GLU 137 Result Comment: Fasting Glucose result greater than or equal to 126 mg/dL suggests DIABETES MELLITUS per A.D.A. criteria. Please note revised GLUCOSE reference range effective 2017. LAB L501.1000 7-18 mg/dL High BUN 36 LAB L501.1100 0.70-1.30 mg/dL Normal CREAT,SERUM 1.04 Result Comment: The validity of the calculated GFR AND GFRAA in patients over 70 years has not been determined. Clinical correlation is essential. LAB L501.1110 >60 mL/min Normal EST GFR 75 Result Comment: Non- GFR Calc LAB L501.1115 >60 mL/min Normal EST GFR - AA 91 Result Comment: GFR Calc LAB L501.1300 10-20 RATIO High BUN/CRE 34.6 LAB L501.2200 8.5-10.1 mg/dL CA Normal 8.5 LAB L501.5300 136-145 mmol/L NA Normal 143 LAB L501.5600 3.5-5.1 mmol/L K Normal 4.8 LAB L501.5900 98-107 mmol/L Low CL 94 LAB L501.6100 21.0-32.0 mmol/L High CO2 45.0 LAB L501.6200 5-15 Low GAP 4 Performed By: #### L500.2500, L501.2300, L501.5200 #### [facility] [address] [place], [address] PHOSPHORUS Collected: 05/03/2018 Status: F Source: [place] 6:00 AM [facility] REPOSITORY TYPE CODE TESTS RESULT OUT OF RANGE REFERENCE UNITS LAB L501.2300 2.5-4.9 mg/dL Normal PHOS 3.2 Performed By: #### L500.2500, L501.2300, L501.5200 #### [facility] [address] [place], [place], [address] MAGNESIUM Collected: 05/03/2018 Status: F Source: [place] 6:00 AM [facility] REPOSITORY TYPE CODE TESTS RESULT OUT OF RANGE REFERENCE UNITS LAB L501.5200 1.6-2.6 mg/dL Normal MG 2.5 Performed By: #### L500.2500, L501.2300, L501.5200 #### [facility] [address] [place], [address] CBC W/DIFF, AUTOMATED Collected: 05/03/2018 Status: F Source: [place] 6:00 AM [facility] REPOSITORY TYPE CODE TESTS RESULT OUT OF RANGE REFERENCE UNITS LAB L100.1000 4.4-11.0 K/mm3 Normal WBC 6.7 LAB L100.1200 4.6-6.2 M/mm3 Low RBC 3.23 LAB L100.1300 13.0-16.5 g/dl Low HGB 8.7 LAB L100.1400 40-54 % Low HCT 30.7 LAB L100.1500 80-94 fL High MCV 95.0 LAB L100.1600 27.0-32.0 pg Low MCH 26.9 LAB L100.1700 32-36 g/gl Low MCHC 28.3 LAB L100.1810 11.6-14.6 % Normal RDW CV 14.6 LAB L100.1820 35.1-43.9 fl High RDW SD 50.0 LAB L100.1900 150-450 K/mm3 Low PLT 96 LAB L100.2000 6.2-12.0 fl Normal MPV 9.0 LAB L100.2100 47-70 % High NEUT% 93.5 LAB L100.2200 19-41 % Low LY% 3.7 LAB L100.2300 0-10 % Normal MONO% 2.8 LAB L100.2400 0-5 % Normal EO% 0.0 LAB L100.2500 0-1 % Normal BASO% 0.0 LAB L100.2550 0.0-0.9 % Normal IM GRAN % 0.000 Result Comment: IG% - Immature Granulocytes (promyelocytes, myelocytes and metamyelocytes) > 1% indicates that a LEFT SHIFT is Present. LAB L100.2620 2.0-7.7 X10 3/uL Absolute Neut Normal 6.3 LAB L100.2720 0.83-4.51 X10 3/ul Low Absolute Lymph 0.25 LAB L100.4500 SMEAR COMMENT Normal SCANNED LAB L100.7600 HYPOCHROMASIA Normal 1+ LAB L100.8200 OVALOCYTE Normal 2+ Performed By: #### L100.0100 #### [facility] [address] [facility] [address] HEMOGLOBIN A1C Collected: 05/03/2018 Status: F Source: [place] 6:00 AM [facility] REPOSITORY Order Comment: Comments: as add on test TYPE CODE TESTS RESULT OUT OF RANGE REFERENCE UNITS LAB L501.9985 4.2-6.3 % Normal HGB A1C 4.8 Performed By: #### L501.9985 #### [facility] [address] [place], [address] BEDSIDE GLUCOSE Collected: 05/02/2018 Status: F Source: [place] 9:43 PM [facility] REPOSITORY TYPE CODE TESTS RESULT OUT OF REFERENCE UNITS RANGE LAB L501.080 70-110 mg/dL High BEDSIDE GLU 131 Result Comment: MANAGEMENT OF PATIENT CARE PER NURSING PROTOCOL Performed By: #### L501.080 #### [facility] Point of Care [address] [place] [address] CHEST 1 VIEW Observed: 05/02/2018 Status: F Source: [place] (PORTABLE) 4:51 PM [facility] REPOSITORY [facility] Imaging Services [address] [place] [address] Chest 1 View (Portable) MR#: [id number] Acct: [id number] Name: JIMMY BUTLER Rep #: [id number] : 1950 M 67 From: Elijah Munoz MD PCP: Elderbrock MD,Sally Status: ADM IN Study: Chest 1 View (Portable) Date of Exam: 05/01/18 Exam# [id number] Ordering Dr: Phil Joyce MD STUDY: X-RAY CHEST REASON FOR EXAM: Male, 67 years old. Short of breath TECHNIQUE: AP portable COMPARISON: July 07, 2017 FINDINGS: Lungs are hyperinflated.. There is an irregular nodular opacity in the right upper lobe. There appears to be symmetric pulmonary interstitial edema or infiltrate in the left lung There is a small left pleural effusion. Heart is enlarged. Normal mediastinum and yee. Normal visualized pulmonary arteries. Tortuous aortic arch and descending thoracic aorta. Pacemaker noted on the left with electrodes in satisfactory position. Dorsal spine demonstrates spondylosis. Normal visualized ribs, clavicles, and shoulders. There is no demonstrated abnormality of the visualized soft tissue structures of the upper abdomen. RAD/Chest 1 View (Portable) IMPRESSION: Asymmetric unilateral pulmonary interstitial edema or infiltrate with small effusion. Persistent irregular nodular opacity in the right upper lobe Electronically Signed: Elijah Munoz MD at 21:15 EDT , Service support , CC: Sally Allison MD; Phil Joyce MD [employer] Crewmember: Signed CONSULTATION Observed: 05/02/2018 Status: F Source: [place] 2:08 PM [facility] REPOSITORY [facility] Medical Records Department [address] [place] [address] Consultation 05/02/18 1027 MR#: [id number] Acct: [id number] Name: JIMMY BUTLER Rep #: [id number] : [id number] 67 From: Nola Guzman [employer]-C PCP: Sally Allison MD Status: ADM MARKY Y Location: [place] [address] ADDENDUM by Jet Arnett MD on 05/02/18 at 1408 Code Visit Patient seen and examined independently in conjunction with nurse practitioner. All data, including note below, was personally reviewed and I agree with the added comments. Brief, patient is well-known to me from the outpatient arena and is known to have advanced COPD, silicosis and chronic hypoxic respiratory failure. Patient does report that he has been compliant with BiPAP at home and is family members at the bedside agrees with this assessment. Patient does admit to smoking 1/2-1 pack per day and does take his oxygen off to facilitate this activity. Patient is also on a maintenance of 10 mg of prednisone daily. She reportedly had had aggressive shortness of breath over the course of 3 days despite the use of BiPAP rescue. Patient has noted some URI symptoms with runny nose and congestion. Physical exam was independently performed and I agree as listed below. Patient was forgetful, but able to answer all orientation questions. Patient with diminished breath sounds bilaterally, but no adventitial sounds are appreciated. No murmurs were noted. Patient does have an AICD. Patient does have stage II clubbing noted. Laboratory workup is relatively unremarkable, but shows a relative lymphopenia. Imaging was personally reviewed and shows little to no change in baseline findings. Assessment and plan Patient should continue BiPAP overnight with rescue as needed. Patient is on empiric antibiotics at this time, but would consider discontinuation at 48 hours if culture negative. Await viral panel. Keep supplemental oxygen in place. Some concern for possible component of acute on chronic systolic congestive heart failure secondary to noncompliance with supplemental oxygen. Likely transition to oral prednisone tomorrow and wean over the next 12 days to baseline of 10 mg per day. Keep saturations 88-92% given patient's known CO2 retention. Inpatient E AND M: [id number] Init Hosp L3 05/02/18 1408 <Electronically signed by Jet Arnett MD> Date Jet Arnett MD cc: Sally Allison MD; Phil Joyce MD * Signed Problem List (1) Acute on chronic respiratory failure with hypoxia and hypercapnia Status: Acute (2) COPD exacerbation Status: Acute (3) PETE (obstructive sleep apnea) Status: Chronic (4) Hypersomnia Status: Chronic (5) Stage 4 very severe COPD by GOLD classification Status: Chronic (6) Tobacco abuse Status: Chronic (7) Silicosis Status: Chronic (8) History of implantable cardioverter-defibrillator (ICD) placement Status: Chronic (9) Hypertension Status: Chronic Reason for Consult Date of Consultation: 05/02/18 Reason for Consultation: Respiratory failure, severe COPD History of Present Illness: The patient is a 67 year old M with past medical history as below, presented to the ED on 05/01/18 with complaints of a 3 day history of increased shortness of breath that worsened with exertion, wheezing, and fatigue. Patient follows the pulmonary clinic with Dr. Arnett and Kenna Trinh for stage IV COPD, PETE, combined respiratory failure, history of silicosis. He is on supplemental oxygen at home. He was last seen in February 2018 for management of his lung problems. He reports compliance with his BiPAP at home. Patient on maintenance dose of 10 mg prednisone daily. Patient does continue to smoke cigarettes despite urging in the past to quit. He admits not wearing his oxygen at all times at home. Patient unable to answer many of my questions, states he forgets easily and his usually handles everything. She is not present at the time of consultation. Patient denies any fever or chills, nausea, vomiting, or diarrhea. He denies any dizziness or orthopnea. Reports very minimal improvement in his overall breathing status. Most information was obtained from patient's medical record. He has required frequent prednisone taper for COPD exacerbations in the past. He has completed cardiac and pulmonary rehab in the past. Vital signs on arrival are stable, blood pressure 113/69, pulse 85, RR 22, 97.8, and 94% on 3 L of oxygen. Blood work revealed WBC 3.5, hemoglobin 9.3, platelet 102. Chemistry is pending. A blood gas was drawn on 05/01/18 and revealed a pH of 7.33, PCO2 of 95.6, PO2 of 41, bicarbonate 50, and a base excess of 24. I did review past ABG results which were similar to current. Chest x-ray showed nothing acute, just hyperinflation and scattered areas of fibrosis primarily involving the upper lobes. The patient was treated in the emergency room with aerosols, Solu-Medrol, antibiotics, and BiPAP secondary to respiratory distress. He was admitted to the progressive care unit for further evaluation and management. He did improve with BiPAP therapy and wore it throughout the night. He is currently maintaining appropriate saturations on his home oxygen requirement of 3 L. He is on his baseline Lasix therapy of 40 mg p.o. A viral respiratory panel and blood cultures were ordered, however those results are not available to me at this time. Past Medical History Past Medical History (Chronic Problems): Chronic Problems (Last Reviewed 03/04/18 @ 09:42 by Kenna Trinh NP-C) PETE (obstructive sleep apnea) (Chronic) Hypersomnia (Chronic) PETE (obstructive sleep apnea) (Chronic) Stage 4 very severe COPD by GOLD classification (Chronic) Tobacco abuse (Chronic) Hypercapnic respiratory failure, chronic (Chronic) Acute and chronic respiratory failure with hypercapnia (Chronic) Chronic respiratory failure (Chronic) Silicosis (Chronic) History of implantable cardioverter-defibrillator (ICD) placement (Chronic) CHF (congestive heart failure) (Chronic) COPD (chronic obstructive pulmonary disease) (Chronic) Hypertension (Chronic) Medical History: Medical History (Last Reviewed 03/04/18 @ 09:42 by Kenna Trinh NP-C) Hypersomnia (Chronic) G47.10 Pleural effusion (Acute) J90 Runny nose (Acute) R09.89 PETE (obstructive sleep apnea) (Chronic) G47.33 Stage 4 very severe COPD by GOLD classification (Chronic) J44.9 Tobacco abuse (Chronic) Z72.0 Shortness of breath (Acute) R06.02 Confusion (Acute) R41.0 Hypercapnic respiratory failure, chronic (Chronic) J96.12 Acute and chronic respiratory failure with hypercapnia (Chronic) J96.22 Paroxysmal atrial fibrillation (Acute) I48.0 Chronic respiratory failure (Chronic) J96.10 Silicosis (Chronic) J62.8 Acute on chronic systolic (congestive) heart failure (Acute) I50.23 Pneumothorax on left (Acute) J93.9 CHF (congestive heart failure) (Chronic) I50.9 COPD (chronic obstructive pulmonary disease) (Chronic) J44.9 Hypertension (Chronic) I10 Allergies aspirin Adverse Reaction (Verified 11/17/17 12:54) Upset Stomach Home Medications: Ambulatory Orders Medication Instructions Recorded Carvedilol [Coreg (Beta Kade)] 25 mg PO BID 09/09/15 Finasteride [Proscar] 5 mg PO DAILY 09/09/15 Vit B12/Levomefolate/Vit B6/B2 1 tab PO 1700 09/09/15 Surgical History: Surgical History (Last Reviewed 03/04/18 @ 09:42 by ARAM Garcia) History of implantable cardioverter-defibrillator (ICD) placement (Chronic) Z95.810 Surgical History: total knee arthroplasty, - - back surgery, brain surgery for aneurysm. ICD insertion Psychiatric History: No pertinent psych hx Lives: Spouse/ Significant Other Tobacco Use: Cigarettes, Vapor Alcohol: None Drugs: None - *Family History Paternal Family History: Family History (Last Reviewed 03/04/18 @ 09:42 by ARAM Garcia) Father Lung disease Brother Cancer History Items: No pertinent history Maternal Family History: Family History (Last Reviewed 03/04/18 @ 09:42 by ARAM Garcia) Father Lung disease Brother Cancer History Items: No pertinent history Review of Systems Constitutional: Reports: Weakness. Denies: Anorexia, Chills, Fever, Night Sweats, Malaise, Weight Change, Fatigue Eyes: Denies: Vision Change HEENT: Reports: Hard of Hearing. Denies: Difficulty Swallowing, Nasal Congestion, Post Nasal Drip, Sinus Congestion, Sore Throat Cardiovascular: Reports: Chest Tightness. Denies: Chest Pain, Edema, Light Headedness, Orthopnea, Palpitations, Paroxysmal Noc. Dyspnea, Syncope Respiratory: Reports: Shortness of breath upon exertion, Wheezing. Denies: Cough, Hemoptysis, Shortness of breath at rest, Sputum production Gastrointestinal: Denies: Abdominal Pain, Constipation, Diarrhea, Dyspepsia, Hematemesis, Hematochezia, Nausea, Melena, Vomiting Genitourinary: Reports: Frequency. Denies: Dysuria, Hematuria, Retention Musculoskeletal: Denies: Back Pain, Muscle pain Skin: Denies: Rash, Wounds Neurological: Reports: - - Forgetfulness. Denies: Balance problems, Change in Speech, Confusion, Difficulty swallowing, Focal weakness, Numbness, Tingling, Tremor, Seizures Psychiatric: Denies: Anxiety, Depression Endocrine: Denies: Change in Body Habitus, Polydipsia, Polyuria Hematologic/ Lymphatic: Reports: Anemia. Denies: Adenopathy, Easy Bruising Patient Problems: Active and Suspected Problems (Last Reviewed 03/04/18 @ 09:42 by Kenna Trinh, [employer]-C) COPD exacerbation (Acute) Acute on chronic respiratory failure with hypoxia and hypercapnia (Acute) Subjective: The patient was seen and examined. He is resting in bed with eyes closed, did witness some apnea. He is not currently wearing BiPAP. Reports dyspnea on exertion is at his baseline. However, also states minimal improvement from arrival overnight. Maintaining appropriate oxygen saturations on 3 L. Denies cough or sputum production. Objective: Clinical Impression(s) from Imaging Studies Chest X-Ray 05/02/18 05:55 IMPRESSION: Stable chest, no acute cardiopulmonary disease. COPD. Electronically Signed: Arpan Sabillon MD at 7:23 EDT , Service support , - Physical Exam General: Alert, Oriented x3, Cooperative, No apparent distress, - - Forgetful. HEENT: Atraumatic, PERRLA, Normocephalic Oral: Moist Mucosa, No Gingival or Mucosal Lesions/ Ulcerations Neck: Supple, No Nodes, Trachea Midline Lungs: No rhonchi, No wheeze, No rales, Diminished, - - Poor air movement. Symmetric expansion, no dullness to percussion. Cardiovascular: Regular rate, Regular Rhythm, Normal S1, Normal S2, No rub noted, No Gallop, - - AICD Abdomen: Bowel Sounds Present, Soft, Non Tender, Non-Distended Extremities: No cyanosis, No edema, Clubbing Skin: No rashes, No breakdown Musculoskeletal: No Tenderness to Palpation of Joints or Extremities Lymphatic: No Cervical, Supraclavicular, or Inguinal Adenopathy Neurological: Cranial nerves II-XII grossly intact, Neuro grossly intact, Motor Exam 5/5 strength throughout Psych/Mental Status: Appropriate, Flat Affect Microbiology Past 72 Hours 05/02/18 03:15 Legionella Antigen - Final Urine, Clean Catch Streptococcus pneumoniae Antigen (M - Final Laboratory Tests Past 24 Hrs WBC RBC Hgb Hct MCV MCH MCHC RDW RDW Differential WBC 3.5 L RBC 3.36 L Assessment/Plan All Active Problems (Last Reviewed 03/04/18 @ 09:42 by Kenna Trinh NP-C) COPD exacerbation (Acute) Acute on chronic respiratory failure with hypoxia and hypercapnia (Acute) Pleural effusion (Acute) Runny nose (Acute) Shortness of breath (Acute) Confusion (Acute) Paroxysmal atrial fibrillation (Acute) Acute on chronic systolic (congestive) heart failure (Acute) Pneumothorax on left (Acute) RECOMMENDATIONS 1. Wean oxygen supplementation to keep saturations 88-92%. 2. Encourage incentive spirometer. 3. Increase activity as tolerated, PT consult. 4. Continue aerosols, steroids. Transition to oral tomorrow. 5. Await infectious workup, discontinue antibiotics if negative. 6. Obtain sputum if cough becomes productive. 7. Ambulatory pulse ox prior to discharge 8. Follow-up in the pulmonary clinic in 2 weeks. 9. Continue palliative care IMPRESSIONS 1. Acute on chronic combined respiratory failure secondary to presumed acute COPD exacerbation (stage IV) Improved, BiPAP overnight. Currently on baseline 3 L. Minimal subjective improvement. Chest x-ray showed nothing acute, just hyperinflation and scattered areas of fibrosis primarily involving the upper lobes. Infectious workup is pending, consider discontinuation of antibiotics if negative. Respiratory viral panel was ordered, no results available at this time. Obtain sputum if cough becomes productive. Suspect patient has been taking off oxygen to smoke, likely resulting in persistent hypoxia and increased shortness of breath. Wean oxygen supplementation to keep saturations 88-92%. Increase activity as tolerated. Continue steroids and likely okay to transition to oral tomorrow. Continue breathing treatments. Patient had been following with palliative care in the past, unsure if this has been continued. Can obtain more information when the is present. 2. Ongoing tobacco abuse Patient has been decreasing the amount of cigarettes he smokes per day, was 1 pack per day and states he smokes anywhere from half to three quarters pack per day currently. Discussed with him the benefits of smoking cessation and he verbalized understanding. Also reinforced how smoking complicates his overall breathing status. 3. PETE Compliant with BiPAP at home. Continue BiPAP at night and PRN during the day for increased shortness of breath or lethargy. His ABG did indicate chronic CO2 retention. 4. History of silicosis/ischemic cardiomyopathy S/P AICD/PAF/chronic systolic CHF/hypertension Complicates care, management, recovery, and prognosis. Continue home medications as indicated. Patient on his baseline Lasix therapy of 40 mg p.o. Thank you for the opportunity to participate in this patient's care, please do not hesitate contact us with any further questions or concerns. This note was generated with Dragon dictation software. It may contain incorrect words, spelling, and punctuation that were not noted in checking the note before signing. 05/02/18 1251 <Electronically signed by Nola CHIU> Date Nola CHIU Cosigner Signature (if applicable): Date CC: Sally Allison MD; Phil Joyce MD Signed BEDSIDE GLUCOSE Collected: 05/02/2018 Status: F Source: [place] 9:11 AM [facility] REPOSITORY TYPE CODE TESTS RESULT OUT OF RANGE REFERENCE UNITS LAB L501.080 70-110 mg/dL Normal BEDSIDE GLU 92 Result Comment: MANAGEMENT OF PATIENT CARE PER NURSING PROTOCOL Performed By: #### L501.080 #### [facility] Point of Care [address] [facility] [place] [address] Observed: 05/02/2018 Status: F Source: [place] LEGIONELLA ANTIGEN 3:15 AM [facility] URINE REPOSITORY Comments: DOWNTIME Specimen Source: URINE, RANDOM Legionella, UR Legionella Antigen result interpretation: Negative Presumptive negative for Legionella pneumophila serogroup 1 antigen in urine, suggesting no recent or current infection. RESULT(S) PREVIOUSLY REPORTED ON MANUAL REQUISITION DURING DOWNTIME. Legionella Ag, Urine Negative (See interpretation below) Performed By: #### M300.4500, M300.4600 #### [facility] [address] [facility] [place], [address] STREP Observed: 05/02/2018 Status: F Source: [place] PNEUMONIAE ANTIG(UR,CSF) 3:15 AM [facility] REPOSITORY Comments: DOWNTIME Specimen Source: URINE, RANDOM S pneumo Ag URINE INTERPRETATION Negative Urine Presumptive negative for pneumococcal pneumonia, suggesting no current or recent pneumococcal infection. Infection due to S pneumoniae cannot be ruled out since the antigen present in the sample may be below the detection limit of the test. RESULT(S) PREVIOUSLY REPORTED ON MANUAL REQUISITION DURING DOWNTIME. Strep pneumo Test Negative URINE (See interpretation below) Performed By: #### M300.4500, M300.4600 #### [facility] [place], [address] CBC W/DIFF, AUTOMATED Collected: 05/02/2018 Status: F Source: [place] 3:10 AM [facility] REPOSITORY TYPE CODE TESTS RESULT OUT OF RANGE REFERENCE UNITS LAB L100.1000 4.4-11.0 K/mm3 Low WBC 3.5 LAB L100.1200 4.6-6.2 M/mm3 Low RBC 3.36 LAB L100.1300 13.0-16.5 g/dl Low HGB 9.3 LAB L100.1400 40-54 % Low HCT 32.5 LAB L100.1500 80-94 fL High MCV 96.7 LAB L100.1600 27.0-32.0 pg Normal MCH 27.7 LAB L100.1700 32-36 g/gl Low MCHC 28.6 LAB L100.1810 11.6-14.6 % Normal RDW CV 14.3 LAB L100.1820 35.1-43.9 fl High RDW SD 48.2 LAB L100.1900 150-450 K/mm3 Low PLT 102 LAB L100.2000 6.2-12.0 fl Normal MPV 9.4 LAB L100.2100 47-70 % High NEUT% 92.6 LAB L100.2200 19-41 % Low LY% 6.3 LAB L100.2300 0-10 % Normal MONO% 1.1 LAB L100.2400 0-5 % Normal EO% 0.0 LAB L100.2500 0-1 % Normal BASO% 0.0 LAB L100.2550 0.0-0.9 % Normal IM GRAN % 0.000 Result Comment: IG% - Immature Granulocytes (promyelocytes, myelocytes and metamyelocytes) > 1% indicates that a LEFT SHIFT is Present. LAB L100.2620 2.0-7.7 X10 3/uL Normal Absolute Neut 3.3 LAB L100.2720 0.83-4.51 X10 3/ul Low Absolute Lymph 0.22 Performed By: #### L100.0100 #### [facility] [address] [place], [place], [address] BASIC METABOLIC Collected: 05/02/2018 Status: F Source: [place] PROFILE (BMP) 3:10 AM [facility] REPOSITORY Order Comment: 'TROP' Serial specimen #1, #2, #3, or #4: 2 TYPE CODE TESTS RESULT OUT OF RANGE REFERENCE UNITS LAB L501.0100 74-106 mg/dL High GLU 202 Result Comment: Glucose result greater than or equal to 200 mg/dL suggests DIABETES MELLITUS per A.D.A. criteria. Please note revised GLUCOSE reference range effective 2017. LAB L501.1000 7-18 mg/dL High BUN 24 LAB L501.1100 0.70-1.30 mg/dL Normal CREAT,SERUM 1.00 Result Comment: The validity of the calculated GFR AND GFRAA in patients over 70 years has not been determined. Clinical correlation is essential. LAB L501.1110 >60 mL/min 79 Normal EST GFR LAB L501.1115 >60 mL/min 96 Normal EST GFR - AA LAB L501.1300 10-20 RATIO High 24.0 BUN/CRE LAB L501.2200 8.5-10.1 mg/dL 8.5 Normal CA LAB L501.5300 136-145 mmol/L 141 Normal NA LAB L501.5600 3.5-5.1 mmol/L 4.7 Normal K LAB L501.5900 98-107 mmol/L Low 92 CL LAB L501.6100 21.0-32.0 mmol/L High > 45.0 alert CO2 LAB L501.6200 5-15 Test not Normal performed GAP Performed By: #### L500.2500, L501.4010 #### [facility] [address] [place], [place], [address] TROPONIN-I Collected: 05/02/2018 Status: F Source: [place] 3:10 AM [facility] REPOSITORY Order Comment: 'TROP' Serial specimen #1, #2, #3, or #4: 2 TYPE CODE TESTS RESULT OUT OF RANGE REFERENCE UNITS LAB L501.4010 <0.045 ng/mL High 0.078 TROPONIN-I Result Comment: TROPONIN-I EXPECTED VALUES <0.045 Negative 0.045 - 0.590 Consistent with Cardiac Damage > OR = 0.600 Critical Value Not every elevated troponin is indicative of [place]. These values should be used with clinical judgement in examining the patient's clinical picture for diagnosis. To establish a diagnosis of [place] versus myocardial injury, there must be a demonstrated rise and/or fall in the troponin values, in addition to ischemic symptoms, EKG changes, new regional wall motion abnormality, and/or angiographical evidence. PLEASE NOTE: REFERENCE RANGES EDITED 18 Performed By: #### L500.2500, L501.4010 #### [facility] [address] [place], [place], [id number] BLOOD GASES BY [facility] Collected: 05/02/2018 Status: F Source: [place] 1:54 AM [facility] REPOSITORY TYPE CODE TESTS RESULT OUT OF RANGE REFERENCE UNITS LAB L9000.9990 Normal BLD GAS TYPE ART LAB L9001.1000 Normal SITE R Radial LAB L9001.1010 Normal ZACHARY TEST POS LAB L9001.1050 O2 Normal Delivery Dev Bi / C PAP LAB L9001.1070 RR Normal 24 LAB L9001.1074 Normal FI02 30 LAB L9001.1088 Normal IPAP 12 LAB L9001.1090 Normal EPAP 6 LAB L9001.1104 Normal Results To HOSP MD LAB L9001.1105 Normal Time Given 200 LAB L9001.1110 7.35-7.45 Low pH - I-STAT 7.34 LAB L9001.1210 35-45 mmHg High alert pCO2 - ISTAT 87.4 LAB L9001.1310 75-100 mmHG Low PO2 I-STAT 68 LAB L9001.2300 22-26 mmol/L High HCO3 ISTAT 47.1 LAB L9001.2400 -2 to +2 mmol/L High BE ISTAT 21 LAB L9001.2415 mmol/L Normal TOTAL CO2 50 ISTAT LAB L9001.2425 95-99 % Low SO2 ISTAT 90 Performed By: #### L9000.0800 #### [facility] Point of Care [address] [place] [address] Observed: 05/02/2018 Status: F Source: [place] CULTURE, BLOOD (WB) 12:45 AM [facility] REPOSITORY ORDERED FROM [facility] No growth in 5 days. Performed By: #### M200.1000 #### [facility] [address] [place], [place], [address] TROPONIN-I Collected: 05/02/2018 Status: F Source: [place] 12:28 AM [facility] REPOSITORY Order Comment[facility] Serial specimen #1, #2, #3, or #4: 1 TYPE CODE TESTS RESULT OUT OF RANGE REFERENCE UNITS LAB L501.4010 <0.045 ng/mL High 0.078 TROPONIN-I Result Comment: TROPONIN-I EXPECTED VALUES <0.045 Negative 0.045 - 0.590 Consistent with Cardiac Damage > OR = 0.600 Critical Value Not every elevated troponin is indicative of [place]. These values should be used with clinical judgement in examining the patient's clinical picture for diagnosis. To establish a diagnosis of [place] versus myocardial injury, there must be a demonstrated rise and/or fall in the troponin values, in addition to ischemic symptoms, EKG changes, new regional wall motion abnormality, and/or angiographical evidence. PLEASE NOTE: REFERENCE RANGES EDITED 18 Performed By: #### L501.4010, L501.5200 #### [facility] [address] [facility]. [place], [place], [address] MAGNESIUM Collected: 05/02/2018 Status: F Source: [place] 12:28 AM [facility] REPOSITORY Order Comment[facility] Serial specimen #1, #2, #3, or #4: 1 TYPE CODE TESTS RESULT OUT OF RANGE REFERENCE UNITS LAB L501.5200 1.6-2.6 mg/dL Normal MG 2.0 Performed By: #### L501.4010, L501.5200 #### [facility] [address] [facility] [place], [address] LACTIC ACID Collected: 05/02/2018 Status: F Source: [place] 12:28 AM [facility] REPOSITORY Order Comment: ORDERED FROM [facility] Yes/No query for Sepsis Lactate Rule N TYPE CODE TESTS RESULT OUT OF RANGE REFERENCE UNITS LAB L503.6005 0.4-2.0 mmol/L Normal LACTIC ACID 2.0 Result Comment: Critical Result(s) Called at: 01:16:56 05/02/2018 by: LEENA DAMIAN RN PCU Performed By: #### L503.6005 #### [facility] [address] [place], [address] Observed: 05/02/2018 Status: F Source: [place] CULTURE, BLOOD (WB) 12:28 AM [facility] REPOSITORY ORDERED FROM [facility] No growth in 5 days. Performed By: #### M200.1000 #### [facility] [address] [place], [place], [address] CHEST PA AND LATERAL Observed: 05/02/2018 Status: F Source: [place] 12:27 AM [facility] REPOSITORY [facility] Imaging Services [address] [place] [address] Chest PA and Lateral MR#: [id number] Acct: [id number] Name: JIMMY BUTLER Rep #: [id number] : 1950 M 67 From: Arpan Sabillon PCP: Sally Allison MD Status: ADM MARKY Study: Chest PA and Lateral Date of Exam: 05/02/18 Exam# [id number] Ordering Dr: Anni Tello STUDY: X-RAY CHEST REASON FOR EXAM: Male, 67 years old. Chronic respiratory failure. COPD. TECHNIQUE: PA and lateral chest. COMPARISON: July 07, 2017. FINDINGS: Lungs are hyperinflated. Scattered areas of fibrosis primarily involving the upper lobes. No focal infiltrates or effusions. No pneumothorax. Cardiac pacemaker left hemithorax. Postoperative changes of lower cervical fusion. Normal size heart. Normal mediastinum and yee. Normal visualized pulmonary arteries. Normal visualized aortic arch and descending thoracic aorta. Normal visualized thoracic spine. Normal visualized ribs, clavicles, and shoulders. There is no demonstrated abnormality of the visualized soft tissue structures of the upper abdomen. RAD/Chest PA and Lateral IMPRESSION: Stable chest, no acute cardiopulmonary disease. COPD. Electronically Signed: Arpan Sabillon MD at 7:23 EDT , Service support , CC: Anni Tello; Sally Allison MD [employer] Crewmember: Signed BLOOD GASES BY CPS Collected: 05/01/2018 Status: F Source: [place] 11:37 PM [facility] REPOSITORY TYPE CODE TESTS RESULT OUT OF RANGE REFERENCE UNITS LAB L9000.9990 Normal BLD GAS TYPE ART LAB L9001.1000 Normal SITE R Radial LAB L9001.1010 Normal ZACHARY TEST POS LAB L9001.1050 O2 Normal Delivery Dev Bi / C PAP LAB L9001.1070 RR Normal 12 LAB L9001.1074 Normal FI02 30 LAB L9001.1088 Normal IPAP 12 LAB L9001.1090 Normal EPAP 6 LAB L9001.1104 Normal Results To ED LAB L9001.1105 Normal Time Given 2315 LAB L9001.1110 7.35-7.45 Low pH - I-STAT 7.33 LAB L9001.1210 35-45 mmHg High alert pCO2 - ISTAT 95.6 LAB L9001.1310 75-100 mmHG Low PO2 I-STAT 41 LAB L9001.2300 22-26 mmol/L High HCO3 ISTAT 50.3 LAB L9001.2400 -2 to +2 mmol/L High BE ISTAT 24 LAB L9001.2415 mmol/L Normal TOTAL CO2 > 50 ISTAT LAB L9001.2425 95-99 % Low SO2 ISTAT 67 Performed By: #### L9000.0800 #### [facility] Point of Care [address] [place] [address] Observed: 05/01/2018 Status: F Source: [place] RESPIRATORY PANEL 7:45 PM [facility] MOLECULAR REPOSITORY ORDERED FROM [facility] RP PANEL ADENOVIRUS Not Detected HUMAN METAPHNEUMO Not Detected INFLUENZA A Not Detected INFLUENZA A (SUBTYPE H1) Not Detected INFLUENZA A (SUBTYPE H3) Not Detected INFLUENZA B Not Detected PARAINFLUENZA 1 Not Detected PARAINFLUENZA 2 Not Detected PARAINFLUENZA 3 Not Detected PARAINFLUENZA 4 Not Detected RHINOVIRUS Not Detected RSV A Not Detected RSV B Not Detected NAAT METHOD Testing was performed using nucleic acid amplification Performed By: #### M100.638 #### [facility] [address] [place], [place], [address] CBC-COMPLETE BLOOD CNT Collected: 05/01/2018 Status: F Source: [place] NO DIFF 7:18 PM [facility] REPOSITORY Order Comment: RESULT(S) PREVIOUSLY REPORTED ON MANUAL REQUISITION DURING DOWNTIME. TYPE CODE TESTS RESULT OUT OF RANGE REFERENCE UNITS LAB L100.1000 4.4-11.0 K/mm3 Normal WBC 5.7 LAB L100.1200 4.6-6.2 M/mm3 Low RBC 3.53 LAB L100.1300 13.0-16.5 g/dl Low HGB 9.5 LAB L100.1400 40-54 % Low HCT 33.9 LAB L100.1500 80-94 fL High MCV 96.0 LAB L100.1600 27.0-32.0 pg Low MCH 26.9 LAB L100.1700 32-36 g/gl Low MCHC 28.0 LAB L100.1810 11.6-14.6 % High RDW CV 15.0 LAB L100.1820 35.1-43.9 fl High RDW SD 51.9 LAB L100.1900 150-450 K/mm3 Low PLT 102 LAB L100.2000 6.2-12.0 fl Normal MPV 9.0 Performed By: #### L100.0500 #### [facility] [address] [facility] [place], [place], [address] DIGOXIN LEVEL Collected: 05/01/2018 Status: F Source: [place] 12:00 AM [facility] REPOSITORY Order Comment: RESULT(S) PREVIOUSLY REPORTED ON MANUAL REQUISITION DURING DOWNTIME. TYPE CODE TESTS RESULT OUT OF RANGE REFERENCE UNITS LAB L501.7510 0.80-2.00 ng/mL Normal DIG 0.88 Performed By: #### L501.7510 #### [facility] [address] [facility] [place], [place], [address] BNP,B-TYPE NATRIURETIC Collected: 05/01/2018 Status: F Source: [place] PEPTIDE 12:00 AM [facility] REPOSITORY Order Comment: RESULT(S) PREVIOUSLY REPORTED ON MANUAL REQUISITION DURING DOWNTIME. TYPE CODE TESTS RESULT OUT OF RANGE REFERENCE UNITS LAB L503.6620 0-100 pg/mL High B-TYPE 190.5 EJ PEP Performed By: #### L503.6620 #### [facility] [address] [place], [place], [address] BASIC METABOLIC Collected: 05/01/2018 Status: F Source: [place] PROFILE (BMP) 12:00 AM [facility] REPOSITORY Order Comment: RESULT(S) PREVIOUSLY REPORTED ON MANUAL REQUISITION DURING DOWNTIME. 'TROP' Serial specimen #1, #2, #3, or #4: 1 TYPE CODE TESTS RESULT OUT OF RANGE REFERENCE UNITS LAB L501.0100 74-106 mg/dL Normal GLU 102 Result Comment: Fasting Glucose result from 100 to 125 mg/dL suggests IMPAIRED HOMEOSTASIS per A.D.A. criteria. Please note revised GLUCOSE reference range effective 2017. LAB L501.1000 7-18 mg/dL High BUN 21 LAB L501.1100 0.70-1.30 mg/dL Normal CREAT,SERUM 0.83 Result Comment: The validity of the calculated GFR AND GFRAA in patients over 70 years has not been determined. Clinical correlation is essential. LAB L501.1110 >60 mL/min Normal EST GFR 98 LAB L501.1115 >60 mL/min Normal EST GFR - AA 119 LAB L501.1300 10-20 RATIO High BUN/CRE 25.3 LAB L501.2200 8.5-10.1 mg/dL Normal CA 8.5 LAB L501.5300 136-145 mmol/L Normal NA 142 LAB L501.5600 3.5-5.1 mmol/L Normal K 4.7 LAB L501.5900 98-107 mmol/L Low CL 96 LAB L501.6100 21.0-32.0 mmol/L High CO2 43.0 LAB L501.6200 5-15 Low GAP 3 Performed By: #### L500.2500, L501.4010 #### [facility] [address] [place], [address] TROPONIN-I Collected: 05/01/2018 Status: F Source: [place] 12:00 AM [facility] REPOSITORY Order Comment: RESULT(S) PREVIOUSLY REPORTED ON MANUAL REQUISITION DURING DOWNTIME. 'TROP' Serial specimen #1, #2, #3, or #4: 1 TYPE CODE TESTS RESULT OUT OF RANGE REFERENCE UNITS LAB L501.4010 <0.045 ng/mL High 0.090 TROPONIN-I Result Comment: TROPONIN-I EXPECTED VALUES <0.045 Negative 0.045 - 0.590 Consistent with Cardiac Damage > OR = 0.600 Critical Value Not every elevated troponin is indicative of [place]. These values should be used with clinical judgement in examining the patient's clinical picture for diagnosis. To establish a diagnosis of [place] versus myocardial injury, there must be a demonstrated rise and/or fall in the troponin values, in addition to ischemic symptoms, EKG changes, new regional wall motion abnormality, and/or angiographical evidence. PLEASE NOTE: REFERENCE RANGES EDITED 18 Performed By: #### L500.2500, L501.4010 #### [facility] [address] [place], [address] Observed: 04/26/2018 Status: F Source: [place] URINE CULTURE 11:51 AM [facility] REPOSITORY Sp. Request/Comment: - Presurgical Sterilization Specimen received in preservative Culture Result - >=100,000 CFU/ml Enterococcus faecalis --> ABNORMAL ALERT Cephalosporins, clindamycin, and TMP-SMX are not effective for the treatment of enterococcal infections. --> ABNORMAL ALERT Testing or reporting of additional agents was requested. ORGANISM: Enterococcus faecalis METHOD: Minimum inhibitory concentration(Vitek) Antibiotic Interp JEANNE Status Ampicillin SUSCEPTIBLE <=2 F Nitrofurantoin SUSCEPTIBLE 32 F Vancomycin SUSCEPTIBLE 1 F Fosfomycin INTERMEDIATE 128 F The FDA indication for fosfomycin tromethamine is uncomplicated UTIs caused by E. faecalis and E. coli only. Performed By: #### URCUL #### [facility] [address] [place], [place] [address] PROGRESS Observed: 04/26/2018 Status: COMPLETED Source: [place] 11:46 AM [facility] REPOSITORY HNO ID: [id number] Author: Sadie Irizarry Rt Service: (none) Author Type: (none) Type: Progress Notes Filed: 04/26/2018 11:46 AM Note Text: Radiology Service Progress Note PATIENT NAME: Jimmy Butler DATE OF SERVICE: April 26, 2018 TIME: 11:46 AM PATIENT IDENTITY VERIFICATION COMPLETED USING TWO (2) METHODS: Patient confirmed name verbally and Date of . PATIENT GENDER DATA: Female. status: : No status: NO. PATIENT RELEVANT IMPLANT DATA REVIEWED: Not Applicable RADIOLOGY DEPARTMENT: Women's Health PERIPHERAL IV DATA: Not applicable SIGNED BY: Sadie Irizarry Rt April 26, 2018 11:46 AM PROGRESS Observed: 04/26/2018 Status: COMPLETED Source: [place] 10:43 AM [facility] REPOSITORY O ID: [id number] Author: Deja Monique Service: (none) Author Type: Accounting Supervisor Type: Progress Notes Filed: 04/26/2018 10:43 AM Note Text: Radiology Service Progress Note PATIENT NAME: Jimmy Butler DATE OF SERVICE: April 26, 2018 TIME: 10:43 AM PATIENT IDENTITY VERIFICATION COMPLETED USING TWO (2) METHODS: Patient confirmed name verbally and Date of . PATIENT GENDER DATA: Male PATIENT RELEVANT IMPLANT DATA REVIEWED: Not Applicable RADIOLOGY DEPARTMENT: Ultrasound PERIPHERAL IV DATA: Not applicable SIGNED BY: DEJA MONIQUE RDMS T April 26, 2018 10:43 AM [facility] [employer] Observed: 04/26/2018 Status: F Source: [facility] 10:30 AM [facility] REPOSITORY * * *Final Report* * * DATE OF EXAM: Apr 26 2018 10:30AM [facility] [id number] - [facility] US BREAST LTD RT / PROCEDURE REASON: multiple diagnoses * * * * Physician Interpretation * * * * #[id number] - [facility] DIAGNOSTIC AARON MALE BILATERAL DIGITAL DIAGNOSTIC MAMMOGRAM WITH CAD: 04/26/2018 HISTORY: Bilateral diagnostic// right mastalgia. RESULT: TECHNIQUE: The study was acquired using full field digital technology and interpreted from soft copy. Current study was also evaluated with a Computer Aided Detection (CAD). No prior exams were available for comparison. The right breast has increased in density due to gynecomastia that correlates with palpable area. There is also minimal gynecomastia on the left side. No significant masses, calcifications, or other findings are seen in either breast. NEGATIVE There is no mammographic evidence of malignancy. #[id number] - [facility] US BREAST LTD RT ULTRASOUND OF RIGHT BREAST: 04/26/2018 RESULT: No prior exams were available for comparison. Color flow and real-time ultrasound of the right breast were performed. The right breast has increased in density due to gynecomastia that correlates with palpable area. IMPRESSION: NEGATIVE There is no sonographic evidence of malignancy. There are findings in the right subareolar region consistent with gynecomastia. If the clinical exam does not match the imaging findings, then referral to a breast surgeon would be recommended for further evaluation. Roderick Marrero M.D. tab/:04/26/2018 10:46:58 Client Resource Specialist: Sheela DOWELL)(M), [facility] OVERALL STUDY BIRADS: 2 Benign finding [employer] Crewmember: Letitia Transcribe Date/Time: Apr 26 2018 9:30A Dictated by : RODERICK MARRERO MD This examination was interpreted and the report reviewed and electronically signed by: RODERICK MARRERO MD on Apr 26 2018 10:46AM EST [id number] [facility] DIAGNOSTIC AARON Observed: 04/26/2018 Status: F Source: [place] 9:30 AM [facility] REPOSITORY * * *Final Report* * * DATE OF EXAM: Apr 26 2018 9:30AM [facility] 0620 - [facility] DIAGNOSTIC AARON / PROCEDURE REASON: multiple diagnoses * * * * Physician Interpretation * * * * RESULT: #[id number] - [facility] DIAGNOSTIC AARON MALE BILATERAL DIGITAL DIAGNOSTIC MAMMOGRAM WITH CAD: 04/26/2018 HISTORY: Bilateral diagnostic// right mastalgia. RESULT: TECHNIQUE: The study was acquired using full field digital technology and interpreted from soft copy. Current study was also evaluated with a Computer Aided Detection (CAD). No prior exams were available for comparison. The right breast has increased in density due to gynecomastia that correlates with palpable area. There is also minimal gynecomastia on the left side. No significant masses, calcifications, or other findings are seen in either breast. NEGATIVE There is no mammographic evidence of malignancy. #[id number] - [facility] US BREAST LTD RT ULTRASOUND OF RIGHT BREAST: 04/26/2018 RESULT: No prior exams were available for comparison. Color flow and real-time ultrasound of the right breast were performed. The right breast has increased in density due to gynecomastia that correlates with palpable area. IMPRESSION: NEGATIVE There is no sonographic evidence of malignancy. There are findings in the right subareolar region consistent with gynecomastia. If the clinical exam does not match the imaging findings, then referral to a breast surgeon would be recommended for further evaluation. Roderick Marrero M.D. tab/:04/26/2018 10:46:58 Client Resource Specialist: Sheela SILVA (R)(Kerri), [facility] OVERALL STUDY BIRADS: 2 Benign finding [employer] Crewmember: Letitia Transcribe Date/Time: Apr 26 2018 9:30A Dictated by: RODERICK MARRERO MD This examination was interpreted and the report reviewed and electronically signed by: RODERICK MARRERO MD on Apr 26 2018 10:46AM EST [id number] Observed: 04/11/2018 Status: COMPLETED Source: [place] 12:00 AM [facility] REPOSITORY Telephone (UROLMN) CARRIEJIMMY ([id number]) 1950 M Date Time Provider Department 04/11/18 MASON DIAZ) UROLMMonique During your visit today, we recorded the following information about you: STEPHAN Gannon 04/11/2018 2:38 PM Signed Discussed with patient at his last visit if the urine continues to be infected, I would recommend starting a low dose daily Antibiotic. Macrobid has been escripted. Let patient know to take 1 Macrobid Daily and recheck urine culture in 1 month Mason Diaz MPAS, [place], PAMukeshC Judith Mcintosh Ma 04/12/2018 1:19 PM Signed Pt's notified and verbalizes understanding of directions and follow up culture. Will call in the interim with any concerns. Judith Mcintosh Ma Allergies As of Date: 04/11/2018 Noted Allergy Reaction ASA (ASPIRIN) 07/19/2017 8 - GI Upset ASA (SALICYLATES) 01/29/2006 8 - GI Upset Date Reviewed: 04/08/2018 Reviewed by: Judith Mcintosh Ma - Fully Assessed Reason for Visit: Refill Request [94] Primary Visit Diagnosis:Acute cystitis without hematuria [N30.00] Order(s):nitrofurantoin monohydrate and macrocrystal (MACROBID) 100 mg capsuleTake 1 capsule by mouth once daily.Disp: 30 capsuleRfl: 5 URINE CULTURE [SQURCUL] Order #: [id number] FUTURE Prescriptions as of 04/11/2018 Sig: NITROFURANTOIN MONOHYDRATE AND * Take 1 capsule by mouth once * FINASTERIDE 5 MG TABLET Take 1 tablet by mouth once d* MEMANTINE 28 MG CAPSULE SPRIN* Take 1 capsule by mouth once * POTASSIUM CHLORIDE ER 10 MEQ * Take 1 tablet by mouth daily * ISOSORBIDE MONONITRATE ER 30 * TAKE 1 TABLET BY MOUTH EVERY * HYDRALAZINE 50 MG TABLET Take 1 tablet by mouth three * SPIRONOLACTONE 25 MG TABLET Take 1 tablet by mouth once d* X LISINOPRIL 20 MG TABLET Take 1 tablet by mouth once d* X APIXABAN 5 MG TABLET Take 1 tablet by mouth twice * X FUROSEMIDE 20 MG TABLET Take 1 tablet by mouth twice * X DIGOXIN 250 MCG TABLET Take 1 tablet by mouth once d* X CARVEDILOL 25 MG TABLET Take 1 tablet by mouth twice * BIPAP LEVALBUTEROL 0.63 MG/3 ML BIBIANA* Use 3 mL via nebulizer every * BUDESONIDE 0.5 MG/2 ML SUSPEN* NITROGLYCERIN 0.4 MG SUBLINGU* Dissolve 1 tablet under the t* BUDESONIDE 180 MCG/ACTUATION * Inhale 2 Puffs as instructed * PREDNISONE 10 MG TABLET Take 10 mg by mouth once asad* COMPOUNDED PRESCRIPTION [facility]* COMPOUNDED PRESCRIPTION Oxygen 3 liters CYANOCOBALAMIN (VIT B-12) 1,0* Dissolve 1 tablet under the t* Problem List As Of Date 04/11/2018 Noted Resolved Hypertension [I10] INVALID FOR* Lumbar disc disease [M51.9] INVALID FOR* Cervical disc disease [M50.90] INVALID FOR* COPD (chronic obstructive pulmonary disease) [J*INVALID FOR* BPH (benign prostatic hyperplasia) [N40.0] INVALID FOR* Urethral stricture [N35.9] INVALID FOR* Difficulty voiding [R39.198] INVALID FOR* Frequency of urination [R35.0] INVALID FOR* Urinary retention [R33.9] INVALID FOR* Anemia [D64.9] INVALID FOR* Tobacco abuse [Z72.0] INVALID FOR* Nonischemic cardiomyopathy (HCC) [I42.8] INVALID FOR* Atrial fibrillation with rapid ventricular resp*INVALID FOR* AICD (automatic cardioverter/defibrillator) pre*INVALID FOR* Spontaneous pneumothorax [J93.83] INVALID FOR* Swallowing difficulty [R13.10] INVALID FOR* More... PETE treated with BiPAP [G47.33] INVALID FOR* More... Prescriptions ordered this encounter Disp Refills Start End NITROFURANTOIN MONOHYDRATE AND MACROCR* 30 c* 5 04/11/2018 Route: ORAL Sig: Take 1 capsule by mouth once daily. Encounter Status:Closed by MASON DIAZ PA-C on 04/11/18 Observed: 04/08/2018 Status: F Source: [place] URINE CULTURE 11:33 AM [facility] REPOSITORY Sp. Request/Comment: - Presurgical Sterilization Specimen received in preservative Culture Result - >=100,000 CFU/ml Enterococcus faecalis --> ABNORMAL ALERT Cephalosporins, clindamycin, and TMP-SMX are not effective for the treatment of enterococcal infections. --> ABNORMAL ALERT ORGANISM: Enterococcus faecalis METHOD: Minimum inhibitory concentration(Vitek) Antibiotic Interp JEANNE Status Ampicillin SUSCEPTIBLE <=2 F Nitrofurantoin SUSCEPTIBLE <=16 F Vancomycin SUSCEPTIBLE 1 F Performed By: #### URCUL #### [facility] [address] [place], [place] [address] CNOV Observed: 04/08/2018 Status: COMPLETED Source: [place] 11:30 AM [facility] REPOSITORY Office Visit (UROLWS) JIMMY BUTLER ([id number]) 1950 M Date Time Provider Department 04/08/18 11:30 AM MASON DIAZ (STEPHAN) UROLWS During your visit today, we recorded the following information about you: Pulse Blood pressure 84/minute 94/64 STEPHAN Gannon 04/08/2018 11:38 AM Signed CC : BPH and Urethral Stricture HPI: Patient here for one year follow-up. He has had 2 UTIboth treated and he is only having some urgency and frequency intermittently He is tollerating Proscar well. He may need urethral dilation in the near future if he starts to have worsening LUTS 2 week post treat urine culture sent today finished the Macrobid 100 mg LAB RESULTS: Results for orders placed or performed during the hospital encounter of 12/12/12 ADVANCED DIRECTIVE QUESTIONNAIRE Result Value Ref Range Does the patient have an advanced directive? NO Date Updated [id number] Does [facility] have a copy of the patient's advanced directive? NO Was advanced directive information given to the patient? NO, patient declined Urine Culture sent today Physical Exam: PHYSICAL EXAMINATION: Blood pressure 94/64, pulse 84. General appearance: cooperative, pleasant, no acute distress, alert and oriented, well hydrated, well nourished male. IMPRESSION: Encounter Diagnosis ICD-10-CM 1. Urinary tract infection without hematuria, site unspecified N39.0 UA DIP B/O PLAN: > Continue Proscar 5 mg as before >If patient has hematuria or increase in NTF he will make a sooner appointment for flexible cystoscopy > Urine Culture > Call pt with results > Refill on Proscar given TRISH [place], [place], PA-C Referring Provider: SELF [200] Allergies As of Date: 04/08/2018 Noted Allergy Reaction ASA (ASPIRIN) 07/19/2017 8 - GI Upset ASA (SALICYLATES) 01/29/2006 8 - GI Upset Date Reviewed: 04/08/2018 Reviewed by: Judith Mcintosh Ma - Fully Assessed Reason for Visit: Follow Up [171] UTI [116] Primary Visit Diagnosis:Urinary tract infection without hematuria, site unspecified [N39.0] Other Visit Diagnosis:Urethral stricture, unspecified stricture type [N35.9] Order(s):UA DIP B/O [9423729] Order #: [id number] UA DIP, URINE (POC) [1192262] Order #: [id number]. #:[id number] finasteride (PROSCAR) 5 mg tabletTake 1 tablet by mouth once daily.Disp: 90 tabletRfl: 4 URINE CULTURE [SQURCUL] Order #: [id number] Prescriptions as of 04/08/2018 Sig: FINASTERIDE 5 MG TABLET Take 1 tablet by mouth once d* MEMANTINE 28 MG CAPSULE SPRIN* Take 1 capsule by mouth once * POTASSIUM CHLORIDE ER 10 MEQ * Take 1 tablet by mouth daily * ISOSORBIDE MONONITRATE ER 30 * TAKE 1 TABLET BY MOUTH EVERY * HYDRALAZINE 50 MG TABLET Take 1 tablet by mouth three * SPIRONOLACTONE 25 MG TABLET Take 1 tablet by mouth once d* LISINOPRIL 20 MG TABLET Take 1 tablet by mouth once d* APIXABAN 5 MG TABLET Take 1 tablet by mouth twice * FUROSEMIDE 20 MG TABLET Take 1 tablet by mouth twice * DIGOXIN 250 MCG TABLET Take 1 tablet by mouth once d* CARVEDILOL 25 MG TABLET Take 1 tablet by mouth twice * BIPAP LEVALBUTEROL 0.63 MG/3 ML BIBIANA* Use 3 mL via nebulizer every * NITROGLYCERIN 0.4 MG SUBLINGU* Dissolve 1 tablet under the t* PREDNISONE 10 MG TABLET Take 10 mg by mouth once asad* COMPOUNDED PRESCRIPTION [facility]* COMPOUNDED PRESCRIPTION Oxygen 3 liters CYANOCOBALAMIN (VIT B-12) 1,0* Dissolve 1 tablet under the t* BUDESONIDE 0.5 MG/2 ML SUSPEN* BUDESONIDE 180 MCG/ACTUATION * Inhale 2 Puffs as instructed * Problem List As Of Date 04/08/2018 Noted Resolved Hypertension [I10] INVALID FOR* Lumbar disc disease [M51.9] INVALID FOR* Cervical disc disease [M50.90] INVALID FOR* COPD (chronic obstructive pulmonary disease) [J*INVALID FOR* BPH (benign prostatic hyperplasia) [N40.0] INVALID FOR* Urethral stricture [N35.9] INVALID FOR* Difficulty voiding [R39.198] INVALID FOR* Frequency of urination [R35.0] INVALID FOR* Urinary retention [R33.9] INVALID FOR* Anemia [D64.9] INVALID FOR* Tobacco abuse [Z72.0] INVALID FOR* Nonischemic cardiomyopathy (HCC) [I42.8] INVALID FOR* Atrial fibrillation with rapid ventricular resp*INVALID FOR* AICD (automatic cardioverter/defibrillator) pre*INVALID FOR* Spontaneous pneumothorax [J93.83] INVALID FOR* Swallowing difficulty [R13.10] INVALID FOR* More... PETE treated with BiPAP [G47.33] INVALID FOR* More... Prescriptions ordered this encounter Disp Refills Start End FINASTERIDE 5 MG TABLET 90 t* 4 04/08/2018 Route: ORAL Sig: Take 1 tablet by mouth once daily. Medications Discontinued During This Encounter finasteride (PROSCAR) 5 mg tablet 90 t* 4 01/04/2017 04/08/2018 Route: ORAL Sig: Take 1 tablet by mouth once daily. Disc: Reason for discontinue is not on file. Disposition: Return in about 1 year (around 04/08/2019). Follow-up and Disposition History Recorded Encounter Status:Closed by MASON DIAZ PA-C on 04/08/18 PROGRESS Observed: 04/08/2018 Status: COMPLETED Source: [place] 11:27 AM [facility] REPOSITORY HNO ID: [id number] Author: Mason Diaz (Pa) Service: (none) Author Type: Physician Electrical Engineering Teacher Type: Progress Notes Filed: 04/08/2018 11:38 AM Note Text: CC : BPH and Urethral Stricture HPI: Patient here for one year follow-up. He has had 2 UTIboth treated and he is only having some urgency and frequency intermittently He is tollerating Proscar well. He may need urethral dilation in the near future if he starts to have worsening LUTS 2 week post treat urine culture sent today finished the Macrobid 100 mg LAB RESULTS: Results for orders placed or performed during the hospital encounter of 12/12/12 ADVANCED DIRECTIVE QUESTIONNAIRE Result Value Ref Range Does the patient have an advanced directive? NO Date Updated [id number] Does [facility] have a copy of the patient's advanced directive? NO Was advanced directive information given to the patient? NO, patient declined Urine Culture sent today Physical Exam: PHYSICAL EXAMINATION: Blood pressure 94/64, pulse 84. General appearance: cooperative, pleasant, no acute distress, alert and oriented, well hydrated, well nourished male. IMPRESSION: Encounter Diagnosis ICD-10-CM 1. Urinary tract infection without hematuria, site unspecified N39.0 UA DIP B/O PLAN: > Continue Proscar 5 mg as before >If patient has hematuria or increase in NTF he will make a sooner appointment for flexible cystoscopy > Urine Culture > Call pt with results > Refill on Proscar given TRISH Bernal, [place], PAMukeshC PROGRESS Observed: 03/30/2018 Status: COMPLETED Source: [place] 10:58 AM [facility] REPOSITORY HNO ID: [id number] Author: Sally Allison Service: (none) Author Type: Physician Type: Progress Notes Filed: 03/30/2018 11:19 AM Note Text: Chief Complaint Patient presents with: Mass: right breast HPI Jimmy Butler is a 67 year old male who presents here today for lump in breast. Lives Kg, and dog Annel. manages pt medications. Pt has had a lump to the right breast x 2 weeks. Some tenderness on palpation. No drainage, does not seem to be changing in size. Has early stages of Alzheimer's. Is taking Namenda. Follows with Dr. Romero, Neurologist. Follows with Pain management for neck pain. Getting injections. PETE: uses BiPAP at night. Follows with Dr. Finn, Project Estimator. Taking Digoxin 250 mg daily, Coreg 25 mg BID, Lasix 20 mg BID, Eliquis 5 mg BID. Lisinopril 20 mg daily and Aldactone 25 mg daily. Taking Imdur 30 mg [address] with Dr. Diaz, urologist. taking Proscar 5 mg daily[address] with [address]. Arnett at [facility]. Uses nebulzier. No longer using Pulmicort. Could not get a clear answer from pt if he is still smoking. Advised that he not smoke with or around his oxygen. Past medical history, appointments, medications, allergies reviewed. 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 Upper lobe nodular infiltrates. - Unspecified essential hypertension Previous Surgical History PAST SURGICAL HISTORY Procedure Laterality Date - INSERTION OF CHEST TUBE 06/19/16 left - LAMINECT W/EXPLOR LUMBAR [place] Gen, [facility]. - PAST SURGICAL HISTORY OF cervical fusion 2x. - PAST SURGICAL HISTORY OF torn lig. knee, left - PAST SURGICAL HISTORY OF carpel tunnel L side - PAST SURGICAL HISTORY OF ~ brain aneurysms, repaired before rupture. - TOTAL KNEE REPLACEMENT left knee - TRANSURETHRAL ELEC-SURG PROSTATECTOM ~2009 x2. Still symptomatic. Family History FAMILY HISTORY Problem Relation Age of Onset - Hypertension Mother - Emphysema Father - Cancer Brother Lung Patient Allergies ALLERGIES Allergen Reactions - Asa [Aspirin] GI Upset - Asa [Salicylates] GI Upset Current Medications Current Outpatient Prescriptions on File Prior to Visit: nitrofurantoin monohydrate and macrocrystal (MACROBID) 100 mg capsule Take 1 capsule by mouth twice daily for 7 days. memantine XR (NAMENDA XR) 28 mg CSpX Take 1 capsule by mouth once daily. potassium chloride (K-TAB) 10 mEq tablet Take 1 tablet by mouth daily with breakfast. isosorbide mononitrate ER (IMDUR) 30 mg 24 hr tablet TAKE 1 TABLET BY MOUTH EVERY DAY hydrALAZINE (APRESOLINE) 50 mg tablet Take 1 tablet by mouth three times daily. spironolactone (ALDACTONE) 25 mg tablet Take 1 tablet by mouth once daily. lisinopril (ZESTRIL, PRINIVIL) 20 mg tablet Take 1 tablet by mouth once daily. apixaban (ELIQUIS) 5 mg tab tab(s) Take 1 tablet by mouth twice daily. furosemide (LASIX) 20 mg tablet Take 1 tablet by mouth twice daily. digoxin (LANOXIN) 250 mcg tablet Take 1 tablet by mouth once daily. carvedilol (COREG) 25 mg tablet Take 1 tablet by mouth twice daily with meals. BIPAP finasteride (PROSCAR) 5 mg tablet Take 1 tablet by mouth once daily. levalbuterol (XOPENEX) 0.63 mg/3 mL nebulizer solution Use 3 mL via nebulizer every 6 hours as needed for Wheezing/Shortness of Breath (for wheezing). Dx: J44.9 budesonide (PULMICORT) 0.5 mg/2 mL nebulizer solution nitroglycerin sublingual (NITROQUICK) 0.4 mg SL tablet Dissolve 1 tablet under the tongue as needed. FOR CHEST PAIN. IF NO RELIEF CALL 911 predniSONE (DELTASONE) 10 mg tablet Take 10 mg by mouth once daily. COMPOUNDED PRESCRIPTION [facility] for home BP monitoring COMPOUNDED PRESCRIPTION Oxygen 3 liters Cyanocobalamin (VITAMIN B-12) 1,000 mcg subl Dissolve 1 tablet under the tongue once daily. budesonide (PULMICORT FLEXHALER) 180 mcg/actuation aepb Inhale 2 Puffs as instructed twice daily. No current facility-administered medications on file prior to visit. 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 Social History Main Topics Smoking status: Current Every Day Smoker Packs/day: 1.00 Years: 50.00 Types: Cigarettes Start date: 1964 Last attempt to quit: 12/23/2014 Smokeless tobacco: Never Used Alcohol use: Yes Comment: Infrequent beer. 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 Dog. Birds. EXAM: BP 118/70 Pulse 68 Resp 16 Wt 77.1 kg (170 lb) BMI 23.71 kg/m? General Appearance: Well appearing, alert, in no acute distress, well-hydrated, well nourished.. Lungs: Lungs clear to auscultation. No wheezing, rhonchi, rales. Heart: RRR without murmur, gallop, or rubs. No ectopy. Breast: right; tender on palpation, gynecomastia. Health Maintenance List DTAP,TDAP,TD(1 - Tdap) due on 1967 HEPATITIS C SCREENING due on 1992 COLORECTAL CANCER SCREENING,SEE MODIFIER due on 05/08/2012 INFLUENZA(Season Ended) due on 07/23/2018 DIABETES SCREEN due on 02/17/2021 LIPID SCREEN due on 12/16/2022 PROSTATE CANCER SCREENING DISCUSSION Completed ADULT PREVNAR-13 Completed PNEUMOVAX AGE 65 AND OVER WITH 5YR LOOKBACK Completed Data reviewed None ASSESSMENT/PLAN: 1. Establishing care with new doctor, encounter for - ICD9: V65.8, ICD10: Z76.89 (primary diagnosis) 2. Gynecomastia, male - ICD9: 611.1, ICD10: N62 Check mammogram/US - if benign may observe; likely due to spironolactone therapy Diagnostic Mammo Rt breast Rt breast U/S 3. Essential hypertension - ICD9: 401.9, ICD10: I10 - good control - Continue current medication(s) - Recommended regular aerobic exercise. - Recommend home blood pressure monitoring, to bring results in on next visit - Goal of BP <140/90 4. Pulmonary emphysema, unspecified emphysema type (HCC) - ICD9: 492.8, ICD10: J43.9 Continue current medications. Continue with Dr. Arnett 5. Benign prostatic hyperplasia with urinary frequency - ICD9: 600.01, 788.41, ICD10: N40.1, R35.[address] Diaz Continue current medications. 6. Atrial fibrillation with rapid ventricular response (HCC) - ICD9: 427.31, ICD10: I48.91 Continue current medications. Continue with Dr. Finn 7. PETE treated with BiPAP - ICD9: 327.23, ICD10: G47.33 Follow up in 6 months. Sally Allison MD The documentation for this note was completed by Enma Galdamez Ma acting as scribe for Sally Allison. March 30, 2018 10:58 AM. CNOV Observed: 03/30/2018 Status: COMPLETED Source: [place] 10:40 AM [facility] REPOSITORY Office Visit (FAMPWS) JIMMY BUTLER ([id number]) 1950 M Date Time Provider Department 03/30/18 10:40 AM SALLY ALLISON FAMPWS During your visit today, we recorded the following information about you: Pulse Respiration Blood pressure Weight 68/minute 16/minute 118/70 77.1 kg Sally Allison 03/30/2018 11:19 AM Signed Chief Complaint Patient presents with: Mass: right breast HPI Jimmy Butler is a 67 year old male who presents here today for lump in breast. Lives Kg, and dog Annel. manages pt medications. Pt has had a lump to the right breast x 2 weeks. Some tenderness on palpation. No drainage, does not seem to be changing in size. Has early stages of Alzheimer's. Is taking Namenda. Follows with Dr. Romero, Neurologist. Follows with Pain management for neck pain. Getting injections. PETE: uses BiPAP at night. Follows with Dr. Finn, Project Estimator. Taking Digoxin 250 mg daily, Coreg 25 mg BID, Lasix 20 mg BID, Eliquis 5 mg BID. Lisinopril 20 mg daily and Aldactone 25 mg daily. Taking Imdur 30 mg daily[address] with Dr. Diaz, urologist. taking Proscar 5 mg daily. Follow[address] with Dr. Arnett at [facility]. Uses nebulzier. No longer using Pulmicort. Could not get a clear answer from pt if he is still smoking. Advised that he not smoke with or around his oxygen. Past medical history, appointments, medications, allergies reviewed. 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 Upper lobe nodular infiltrates. - Unspecified essential hypertension Previous Surgical History PAST SURGICAL HISTORY Procedure Laterality Date - INSERTION OF CHEST TUBE 06/19/16 left - LAMINECT W/EXPLOR LUMBAR ST [facility]. - PAST SURGICAL HISTORY OF cervical fusion 2x. - PAST SURGICAL HISTORY OF torn lig. knee, left - PAST SURGICAL HISTORY OF carpel tunnel L side - PAST SURGICAL HISTORY OF ~ brain aneurysms, repaired before rupture. - TOTAL KNEE REPLACEMENT left knee - TRANSURETHRAL ELEC-SURG PROSTATECTOM ~2009 x2. Still symptomatic. Family History FAMILY HISTORY Problem Relation Age of Onset - Hypertension Mother - Emphysema Father - Cancer Brother Lung Patient Allergies ALLERGIES Allergen Reactions - Asa [Aspirin] GI Upset - Asa [Salicylates] GI Upset Current Medications Current Outpatient Prescriptions on File Prior to Visit: nitrofurantoin monohydrate and macrocrystal (MACROBID) 100 mg capsule Take 1 capsule by mouth twice daily for 7 days. memantine XR (NAMENDA XR) 28 mg CSpX Take 1 capsule by mouth once daily. potassium chloride (K-TAB) 10 mEq tablet Take 1 tablet by mouth daily with breakfast. isosorbide mononitrate ER (IMDUR) 30 mg 24 hr tablet TAKE 1 TABLET BY MOUTH EVERY DAY hydrALAZINE (APRESOLINE) 50 mg tablet Take 1 tablet by mouth three times daily. spironolactone (ALDACTONE) 25 mg tablet Take 1 tablet by mouth once daily. lisinopril (ZESTRIL, PRINIVIL) 20 mg tablet Take 1 tablet by mouth once daily. apixaban (ELIQUIS) 5 mg tab tab(s) Take 1 tablet by mouth twice daily. furosemide (LASIX) 20 mg tablet Take 1 tablet by mouth twice daily. digoxin (LANOXIN) 250 mcg tablet Take 1 tablet by mouth once daily. carvedilol (COREG) 25 mg tablet Take 1 tablet by mouth twice daily with meals. BIPAP finasteride (PROSCAR) 5 mg tablet Take 1 tablet by mouth once daily. levalbuterol (XOPENEX) 0.63 mg/3 mL nebulizer solution Use 3 mL via nebulizer every 6 hours as needed for Wheezing/Shortness of Breath (for wheezing). Dx: J44.9 budesonide (PULMICORT) 0.5 mg/2 mL nebulizer solution nitroglycerin sublingual (NITROQUICK) 0.4 mg SL tablet Dissolve 1 tablet under the tongue as needed. FOR CHEST PAIN. IF NO RELIEF CALL 911 predniSONE (DELTASONE) 10 mg tablet Take 10 mg by mouth once daily. COMPOUNDED PRESCRIPTION [facility] for home BP monitoring COMPOUNDED PRESCRIPTION Oxygen 3 liters Cyanocobalamin (VITAMIN B-12) 1,000 mcg subl Dissolve 1 tablet under the tongue once daily. budesonide (PULMICORT FLEXHALER) 180 mcg/actuation aepb Inhale 2 Puffs as instructed twice daily. No current facility-administered medications on file prior to visit. 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 Social History Main Topics Smoking status: Current Every Day Smoker Packs/day: 1.00 Years: 50.00 Types: Cigarettes Start date: 1964 Last attempt to quit: 12/23/2014 Smokeless tobacco: Never Used Alcohol use: Yes Comment: Infrequent beer. 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 Dog. Birds. EXAM: BP 118/70 Pulse 68 Resp 16 Wt 77.1 kg (170 lb) BMI 23.71 kg/m? General Appearance: Well appearing, alert, in no acute distress, well-hydrated, well nourished.. Lungs: Lungs clear to auscultation. No wheezing, rhonchi, rales. Heart: RRR without murmur, gallop, or rubs. No ectopy. Breast: right; tender on palpation, gynecomastia. Health Maintenance List DTAP,TDAP,TD(1 - Tdap) due on 1967 HEPATITIS C SCREENING due on 1992 COLORECTAL CANCER SCREENING,SEE MODIFIER due on 05/08/2012 INFLUENZA(Season Ended) due on 07/23/2018 DIABETES SCREEN due on 02/17/2021 LIPID SCREEN due on 12/16/2022 PROSTATE CANCER SCREENING DISCUSSION Completed ADULT PREVNAR-13 Completed PNEUMOVAX AGE 65 AND OVER WITH 5YR LOOKBACK Completed Data reviewed None ASSESSMENT/PLAN: 1. Establishing care with new doctor, encounter for - ICD9: V65.8, ICD10: Z76.89 (primary diagnosis) 2. Gynecomastia, male - ICD9: 611.1, ICD10: N62 Check mammogram/US - if benign may observe; likely due to spironolactone therapy Diagnostic Mammo Rt breast Rt breast U/S 3. Essential hypertension - ICD9: 401.9, ICD10: I10 - good control - Continue current medication(s) - Recommended regular aerobic exercise. - Recommend home blood pressure monitoring, to bring results in on next visit - Goal of BP <140/90 4. Pulmonary emphysema, unspecified emphysema type (HCC) - ICD9: 492.8, ICD10: J43.9 Continue current medications. Continue with Dr. Arnett 5. Benign prostatic hyperplasia with urinary frequency - ICD9: 600.01, 788.41, ICD10: N40.1, R35.[address] Diaz Continue current medications. 6. Atrial fibrillation with rapid ventricular response (HCC) - ICD9: 427.31, ICD10: I48.91 Continue current medications. Continue with Dr. Finn 7. PETE treated with BiPAP - ICD9: 327.23, ICD10: G47.33 Follow up in 6 months. Sally Allison MD The documentation for this note was completed by Enma Galdamez Ma acting as scribe for Sally Allison. March 30, 2018 10:58 AM. Enma Galdamez Ma 03/30/2018 11:21 AM Signed Addended by: ENMA GALDAMEZ MA on: 03/30/2018 11:21 AM Modules accepted: Orders Sally Allison 03/30/2018 11:22 AM Signed Addended by: SALLY ALLISON MD on: 03/30/2018 11:22 AM Modules accepted: Orders Referring Provider: SELF [200] Allergies As of Date: 03/30/2018 Noted Allergy Reaction ASA (ASPIRIN) 07/19/2017 8 - GI Upset ASA (SALICYLATES) 01/29/2006 8 - GI Upset Date Reviewed: 03/30/2018 Reviewed by: Enma Galdamez Ma - Fully Assessed Reason for Visit: Mass [64] Cmt: right breast Establish Care [42] Reason For Visit History Recorded Primary Visit Diagnosis:Establishing care with new doctor, encounter for [Z76.89] Other Visit Diagnoses:Gynecomastia, male [N62] Essential hypertension [I10] Pulmonary emphysema, unspecified emphysema type (HCC) [J43.9] Benign prostatic hyperplasia with urinary frequency [N40.1, R35.0] Atrial fibrillation with rapid ventricular response (HCC) [I48.91] PETE treated with BiPAP [G47.33] Breast mass, right [N63.10] Order(s):[facility] DIAGNOSTIC BILAT [[id number]] Order #: [id number] FUTURE [facility] BREAST LTD RT [[id number]] Order #: [id number] FUTURE [facility] BREAST LTD LT [[id number]] Order #: [id number] FUTURE Prescriptions as of 03/30/2018 Sig: NITROFURANTOIN MONOHYDRATE AND * Take 1 capsule by mouth twice* MEMANTINE 28 MG CAPSULE SPRIN* Take 1 capsule by mouth once * POTASSIUM CHLORIDE ER 10 MEQ * Take 1 tablet by mouth daily * ISOSORBIDE MONONITRATE ER 30 * TAKE 1 TABLET BY MOUTH EVERY * HYDRALAZINE 50 MG TABLET Take 1 tablet by mouth three * SPIRONOLACTONE 25 MG TABLET Take 1 tablet by mouth once d* LISINOPRIL 20 MG TABLET Take 1 tablet by mouth once d* APIXABAN 5 MG TABLET Take 1 tablet by mouth twice * FUROSEMIDE 20 MG TABLET Take 1 tablet by mouth twice * DIGOXIN 250 MCG TABLET Take 1 tablet by mouth once d* CARVEDILOL 25 MG TABLET Take 1 tablet by mouth twice * BIPAP FINASTERIDE 5 MG TABLET Take 1 tablet by mouth once d* LEVALBUTEROL 0.63 MG/3 ML BIBIANA* Use 3 mL via nebulizer every * BUDESONIDE 0.5 MG/2 ML SUSPEN* NITROGLYCERIN 0.4 MG SUBLINGU* Dissolve 1 tablet under the t* PREDNISONE 10 MG TABLET Take 10 mg by mouth once asad* COMPOUNDED PRESCRIPTION [facility] for ho* COMPOUNDED PRESCRIPTION Oxygen 3 liters CYANOCOBALAMIN (VIT B-12) 1,0* Dissolve 1 tablet under the t* BUDESONIDE 180 MCG/ACTUATION * Inhale 2 Puffs as instructed * Problem List As Of Date 03/30/2018 Noted Resolved Hypertension [I10] INVALID FOR* Lumbar disc disease [M51.9] INVALID FOR* Cervical disc disease [M50.90] INVALID FOR* COPD (chronic obstructive pulmonary disease) [J*INVALID FOR* BPH (benign prostatic hyperplasia) [N40.0] INVALID FOR* Urethral stricture [N35.9] INVALID FOR* Difficulty voiding [R39.198] INVALID FOR* Frequency of urination [R35.0] INVALID FOR* Urinary retention [R33.9] INVALID FOR* Anemia [D64.9] INVALID FOR* Tobacco abuse [Z72.0] INVALID FOR* Nonischemic cardiomyopathy (HCC) [I42.8] INVALID FOR* Atrial fibrillation with rapid ventricular resp*INVALID FOR* AICD (automatic cardioverter/defibrillator) pre*INVALID FOR* Spontaneous pneumothorax [J93.83] INVALID FOR* Swallowing difficulty [R13.10] INVALID FOR* More... PETE treated with BiPAP [G47.33] INVALID FOR* More... Disposition: Return in about 6 months (around 09/30/2018). Follow-up and Disposition History Recorded Encounter Status:Closed by SALLY ALLISON MD on 03/30/18 PROGRESS Observed: 03/28/2018 Status: COMPLETED Source: [place] 11:08 AM [facility] REPOSITORY HNO ID: [id number] Author: Judith Mcintosh Ma Service: (none) Author Type: (none) Type: Progress Notes Filed: 03/28/2018 11:09 AM Note Text: Pt notified. Judith Mcintosh Ma Observed: 03/23/2018 Status: F Source: [place] URINE CULTURE 12:15 PM [facility] REPOSITORY Sp. Request/Comment: - Presurgical Sterilization Specimen received in preservative Culture Result - >=100,000 CFU/ml Enterococcus faecalis --> ABNORMAL ALERT Cephalosporins, clindamycin, and TMP-SMX are not effective for the treatment of enterococcal infections. --> ABNORMAL ALERT ORGANISM: Enterococcus faecalis METHOD: Minimum inhibitory concentration (VIZION) Antibiotic Interp JEANNE Status Ampicillin SUSCEPTIBLE 2 F Nitrofurantoin SUSCEPTIBLE <=32 F Vancomycin SUSCEPTIBLE 2 F Performed By: #### URCUL #### [facility] [address] [place], [place] [address] CNOV Observed: 03/15/2018 Status: COMPLETED Source: [place] 11:20 AM [facility] REPOSITORY Office Visit (NEURMM) JIMMY BUTLER ([id number]) 1950 M Date Time Provider Department 03/15/18 11:20 AM DESMOND ROMERO JR NEURGIO During your visit today, we recorded the following information about you: Pulse Blood pressure Weight 73/minute 90/58 75.8 kg Desmond Romero MD 03/15/2018 2:55 PM Signed ESTABLISHED PATIENT VISIT HISTORY OF PRESENT ILLNESS: Jimmy Butler is a 67 year old male, There were no vitals taken for this visit. with a PMH significant for: 1. Dementia without behavioral disturbance, unspecified dementia type - ICD9: 294.20, ICD10: F03.90 (primary diagnosis) On Namenda XR 28mg daily (change to generic 10mg BID if needed). Considered Aricept or Exelon but concerned of possible cardiac side effects. ? 2. PETE (obstructive sleep apnea) - ICD9: 327.23, ICD10: G47.33 Since last visit, patient reportedly is having moments where it appears that cognitive decline is progressing. Per family, he is constantly confusing his pills despite that they are being placed in labeled boxes. He will also get a phone call, but then when asked who he was talking to, he will not recall who he is talking to. No abnormal behaviors during day. No hallucinations. However does have some abnormal behaviors at night during sleep - will grasp at things that are not there. Still with respiratory issues, yet still smoking. Using bilevel nightly - no issues with the device. I do not have a compliance card available for download at time of visit. States that he feels refreshed in the AM. No AM headaches. Patient aware of cognitive deficits: ANDquot;I forget a lotANDquot;. He has not been exercising his brain. Spends day watching tv. Did receive compliance report for PAP from 12/15/17-03/14/18 - used 90/ days with avg use of 4 hours and 20 minutes. Setting of 18/12 cmH2O. AHI is 0.6. Leak 95% 17.2 Visuospatial/exec (0-5) 2/5 Naming (0-3) 3/3 Attention forwards: 2 1 8 5 4 (0-1) 1/ Attention backwards: 7 4 2 (0-1) 1/ Tap for the ANDquot;AANDquot;: F B A C M N A A J K L B A F A K D E A A A J A M O F A A B (1 point if 0 or 1 error) 1/ Serial subtraction by 7: [id number] (3 points for correct 4 or 5; 2 points for 2 or 3 correct; 1 point for 1 correct) 0/3 Language: repeat: I only know that Marisol is the one to help today (0-1) 1 Language: repeat: The cat always hid under the couch when dogs were in the room (0-1) 1 Fluency: max words beginning with the letter F (1 point if 11 or more words) 0/1 Abstraction: practice banana-orange=fruit. Then train-bicycle (1) AND watch-ruler (1) total: (2) 2/2 Delayed recall: recall words: face, velvet, muslim, jasper, red (0-5) 0/5 Orientation: date(1), month(1), year(1), day(1), place(1), city(1) max 6 points January,, [place] 4 Total Score max 30 or 31 REVIEW OF SYSTEMS GENERAL:No weight loss, malaise or fevers. HEENT:Negative for frequent or significant headaches, No changes in hearing or vision, no nose bleeds or other nasal problems NECK:Negative for lumps, goiter, pain and significant neck swelling RESPIRATORY: CABRALES - chronic. CARDIOVASCULAR: Negative for chest pain, leg swelling or palpitations. GASTROINTESTINAL: Negative for abdominal discomfort, blood in stools or black stools or change in bowel habits GENITOURINARY: No history of dysuria, frequency or incontinence MUSCULOSKELETAL: Negative for joint pain or swelling, back pain or muscle pain. NEUROLOGIC:Negative for focal numbness or weakness, headaches and dizziness or syncope, vision changes, speech/language changes, changes in gait or falls -- besides those complaints as above in HPI. SKIN:Negative for lesions, rash, and itching. PSYCHIATRIC: Negative for sleep disturbance, uses Bilevel for PETE. HEMATOLOGIC/LYMPHATIC/IMMUNOLOGIC:Negative for prolonged bleeding, bruising easily or swollen nodes. The remainder of the ROS was reviewed and is negative. LAB/IMAGING: Those performed since patient's last visit have been reviewed. WBC (k/uL) Date Value 12/16/2017 4.40 RBC (m/uL) Date Value 12/16/2017 3.82 (L) Hemoglobin (g/dL) Date Value 12/16/2017 10.2 (L) Hematocrit (%) Date Value 12/16/2017 37.0 (L) MCV (fL) Date Value 12/16/2017 96.9 MCH (pG) Date Value 12/16/2017 26.7 MCHC (g/dL) Date Value 12/16/2017 27.6 (L) RDW-CV (%) Date Value 12/16/2017 15.5 (H) Platelet Count (k/uL) Date Value 12/16/2017 156 MPV (fL) Date Value 12/16/2017 10.1 Glucose (mg/dL) Date Value 02/17/2018 83 BUN (mg/dL) Date Value 02/17/2018 22 Creatinine (mg/dL) Date Value 02/17/2018 1.01 Sodium (mmol/L) Date Value 02/17/2018 147 (H) Potassium (mmol/L) Date Value 02/17/2018 4.5 Chloride (mmol/L) Date Value 02/17/2018 100 CO2 (mmol/L) Date Value 02/17/2018 40 (H) Protein, Total (g/dL) Date Value 08/24/2016 7.4 Albumin (g/dL) Date Value 08/24/2016 3.5 (L) Calcium (mg/dL) Date Value 02/17/2018 9.3 Alkaline Phosphatase (U/L) Date Value 08/24/2016 66 Bilirubin, Total (mg/dL) Date Value 08/24/2016 0.2 AST (U/L) Date Value 08/24/2016 20 ALT (U/L) Date Value 08/24/2016 12 BELKIS (no units) Date Value 09/13/2015 Negative ANDlt;1:40 MEDICATIONS: potassium chloride (K-TAB) 10 mEq tablet Take 1 tablet by mouth daily with breakfast. isosorbide mononitrate ER (IMDUR) 30 mg 24 hr tablet TAKE 1 TABLET BY MOUTH EVERY DAY hydrALAZINE (APRESOLINE) 50 mg tablet Take 1 tablet by mouth three times daily. spironolactone (ALDACTONE) 25 mg tablet Take 1 tablet by mouth once daily. lisinopril (ZESTRIL, PRINIVIL) 20 mg tablet Take 1 tablet by mouth once daily. memantine XR (NAMENDA XR) 28 mg CSpX Take 1 capsule by mouth once daily. apixaban (ELIQUIS) 5 mg tab tab(s) Take 1 tablet by mouth twice daily. furosemide (LASIX) 20 mg tablet Take 1 tablet by mouth twice daily. digoxin (LANOXIN) 250 mcg tablet Take 1 tablet by mouth once daily. carvedilol (COREG) 25 mg tablet Take 1 tablet by mouth twice daily with meals. BIPAP finasteride (PROSCAR) 5 mg tablet Take 1 tablet by mouth once daily. levalbuterol (XOPENEX) 0.63 mg/3 mL nebulizer solution Use 3 mL via nebulizer every 6 hours as needed for Wheezing/Shortness of Breath (for wheezing). Dx: J44.9 budesonide (PULMICORT) 0.5 mg/2 mL nebulizer solution nitroglycerin sublingual (NITROQUICK) 0.4 mg SL tablet Dissolve 1 tablet under the tongue as needed. FOR CHEST PAIN. IF NO RELIEF CALL 911 budesonide (PULMICORT FLEXHALER) 180 mcg/actuation aepb Inhale 2 Puffs as instructed twice daily. predniSONE (DELTASONE) 10 mg tablet Take 10 mg by mouth once daily. COMPOUNDED PRESCRIPTION [facility] for home BP monitoring COMPOUNDED PRESCRIPTION Oxygen 3 liters Cyanocobalamin (VITAMIN B-12) 1,000 mcg subl Dissolve 1 tablet under the tongue once daily. 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 Upper lobe nodular infiltrates. - Unspecified essential hypertension FAMILY HISTORY Problem Relation Age of Onset - Hypertension Mother - Emphysema Father - Cancer Brother Lung SOCIAL HISTORY Social History Substance Use Topics - Smoking status: Current Every Day Smoker Packs/day: 1.00 Years: 50.00 Types: Cigarettes Start date: 1964 Last attempt to quit: 12/23/2014 - Smokeless tobacco: Never Used - Alcohol use Yes Comment: Infrequent beer. PHYSICAL EXAMINATION Blood pressure 90/58, pulse 73, weight 75.8 kg (167 lb), SpO2 98 %. General appearance: NAD, pleasant. HEENT: NC/AT Lungs: CTA bilaterally. CV: Reg rate but irreg rhythm nl S1, S2. No carotid bruits. Abd: Soft, nontender, nondistended. Extr: No cyanosis, clubbing but trace pedal edema. Extremity pulses trace. ? ? NEUROLOGICAL EXAM: General: Awake, alert, speech fluent, no dysarthria; see MOCA above. CN: PERRL, fundi appear normal including no evidence of papilledema, EOMI and without nystagmus, VFF to confrontation, facial sensation and strength are normal and symmetric, hearing is intact to finger rub bilaterally, palate and tongue movements are intact and symmetric. SCM and trapezius strength normal. Motor: Normal tone, bulk and strength (5/5) bilaterally (throughout extremities x4). Reflexes: 1/4 and symmetric. Coordination: FNF, SOFIA intact. No tremors. Sensation: LT intact throughout. No evidence of neglect. Gait: In wheel chair secondary to CABRALES today. Assessment and Plan: ASSESSMENT/PLAN: 1. Dementia without behavioral disturbance, unspecified dementia type - ICD9: 294.20, ICD10: F03.90 (primary diagnosis) Overall MOCA stable, although subjectively, patient may have more cognitive impairments at home then MOCA would predict. Discussed with patient and family possible considerations for adding Aricept vs Exelon, but also discussed possible SE and ADRs. After discussion, they would like to make no changes to medications today. Thus large portion of clinic visit was spent on discussing with them need for brain exercises - things such as puzzles, card games and social interactions. They also indicated that they may be moving to [facility] soon. They will let me know and if move takes place will attempt to help them find a neurologist near their new home. 2. PETE treated with BiPAP - ICD9: 327.23, ICD10: G47.33 Overall doing well by download. He states he is using almost the entire night each night. AHI controlled per download data. At this time encouraged compliance. Reminded to replace and clean equipment on a regular basis. Desmond Romero MD I spent 30 minutes in the visit, with more than 50% of the total [id number] time of the visit in counseling / coordination of care. Referring Provider: ISHMAEL WAYNE [[id number]] Allergies As of Date: 03/15/2018 Noted Allergy Reaction ASA (ASPIRIN) 07/19/2017 8 - GI Upset ASA (SALICYLATES) 01/29/2006 8 - GI Upset Date Reviewed: 03/15/2018 Reviewed by: Desmond Romero Jr. - Fully Assessed Reason for Visit: Follow Up [171] Cmt: PETE Primary Visit Diagnosis:Dementia without behavioral disturbance, unspecified dementia type [F03.90] Other Visit Diagnosis:PETE treated with BiPAP [G47.33] Order(s):memantine XR (NAMENDA XR) 28 mg CSpXTake 1 capsule by mouth once daily.Disp: 90 capsuleRfl: 3 Prescriptions as of 03/15/2018 Sig: MEMANTINE 28 MG CAPSULE SPRIN* Take 1 capsule by mouth once * POTASSIUM CHLORIDE ER 10 MEQ * Take 1 tablet by mouth daily * ISOSORBIDE MONONITRATE ER 30 * TAKE 1 TABLET BY MOUTH EVERY * HYDRALAZINE 50 MG TABLET Take 1 tablet by mouth three * SPIRONOLACTONE 25 MG TABLET Take 1 tablet by mouth once d* LISINOPRIL 20 MG TABLET Take 1 tablet by mouth once d* APIXABAN 5 MG TABLET Take 1 tablet by mouth twice * FUROSEMIDE 20 MG TABLET Take 1 tablet by mouth twice * DIGOXIN 250 MCG TABLET Take 1 tablet by mouth once d* CARVEDILOL 25 MG TABLET Take 1 tablet by mouth twice * BIPAP FINASTERIDE 5 MG TABLET Take 1 tablet by mouth once d* LEVALBUTEROL 0.63 MG/3 ML BIBIANA* Use 3 mL via nebulizer every * BUDESONIDE 0.5 MG/2 ML SUSPEN* NITROGLYCERIN 0.4 MG SUBLINGU* Dissolve 1 tablet under the t* BUDESONIDE 180 MCG/ACTUATION * Inhale 2 Puffs as instructed * PREDNISONE 10 MG TABLET Take 10 mg by mouth once asad* COMPOUNDED PRESCRIPTION [facility] for ho* COMPOUNDED PRESCRIPTION Oxygen 3 liters CYANOCOBALAMIN (VIT B-12) 1,0* Dissolve 1 tablet under the t* Medication notes this encounter DIGOXIN 250 MCG TABLET >> Luca Grace Cma 03/15/2018 11:41 AM >> LUCA GRACE CMA Mar 15, 2018 11:41 AM Taking half of tablet once daily Problem List As Of Date 03/15/2018 Noted Resolved Hypertension [I10] INVALID FOR* Lumbar disc disease [M51.9] INVALID FOR* Cervical disc disease [M50.90] INVALID FOR* COPD (chronic obstructive pulmonary disease) [J*INVALID FOR* BPH (benign prostatic hyperplasia) [N40.0] INVALID FOR* Urethral stricture [N35.9] INVALID FOR* Difficulty voiding [R39.198] INVALID FOR* Frequency of urination [R35.0] INVALID FOR* Urinary retention [R33.9] INVALID FOR* Anemia [D64.9] INVALID FOR* Tobacco abuse [Z72.0] INVALID FOR* Nonischemic cardiomyopathy (HCC) [I42.8] INVALID FOR* Atrial fibrillation with rapid ventricular resp*INVALID FOR* AICD (automatic cardioverter/defibrillator) pre*INVALID FOR* Spontaneous pneumothorax [J93.83] INVALID FOR* Swallowing difficulty [R13.10] INVALID FOR* More... PETE treated with BiPAP [G47.33] INVALID FOR* More... Prescriptions ordered this encounter Disp Refills Start End MEMANTINE 28 MG CAPSULE SPRINKLE,EXT* 90 c* 3 03/15/2018 Route: ORAL Sig: Take 1 capsule by mouth once daily. Medications Discontinued During This Encounter memantine XR (NAMENDA XR) 28 mg CSpX 90 c* 3 09/15/2017 03/15/2018 Route: ORAL Sig: Take 1 capsule by mouth once daily. Disc: Reason for discontinue is not on file. Disposition: Return in about 1 year (around 03/15/2019). Follow-up and Disposition History Recorded Questionnaire: MOCA Visuospatial/exec (0-5) -> Cmt: 2/5 Naming (0-3) -> Cmt: 3/3 Attention forwards: 2 1 8 5 4 (0-1) -> Cmt: 1 Attention backwards: 7 4 2 (0-1) -> Cmt: 11/22 Tap for the A: F B A C M N A A J K L B A F A K D E A A A J A M O F A A B (1 point if 0 or 1 error) -> Cmt: 11/22 Serial subtraction by 7: [id number] (3 points for correct 4 or 5; 2 points for 2 or 3 correct; 1 point for 1 correct) -> Cmt: 0/3 Language: repeat: I only know that Marisol is the one to help today (0-1) -> Cmt: 1 Language: repeat: The cat always hid under the couch when dogs were in the room (0-1) -> Cmt: 11/22 Fluency: max words beginning with the letter F (1 point if 11 or more words) -> Cmt: 0 Abstraction: practice banana-orange=fruit. Then train-bicycle (1) AND watch-ruler (1) total: (2) -> Cmt: 2/2 Delayed recall: recall words: face, velvet, muslim, jasper, red (0-5) -> Cmt: 0/5 Orientation: date(1), month(1), year(1), day(1), place(1), city(1) max 6 points * Cmt: 02/25 Total Score max 30 or 31 -> Cmt: Encounter Status:Closed by DESMOND ROMERO on 03/15/18 PROGRESS Observed: 03/15/2018 Status: COMPLETED Source: [place] 11:08 AM [facility] REPOSITORY [facility] ID: [id number] Author: Desmond Romero Jr. Service: (none) Author Type: Physician Type: Progress Notes Filed: 03/15/2018 2:55 PM Note Text: ESTABLISHED PATIENT VISIT HISTORY OF PRESENT ILLNESS: Jimmy Butler is a 67 year old male, There were no vitals taken for this visit. with a PMH significant for: 1. Dementia without behavioral disturbance, unspecified dementia type - ICD9: 294.20, ICD10: F03.90 (primary diagnosis) On Namenda XR 28mg daily (change to generic 10mg BID if needed). Considered Aricept or Exelon but concerned of possible cardiac side effects. ? 2. PETE (obstructive sleep apnea) - ICD9: 327.23, ICD10: G47.33 Since last visit, patient reportedly is having moments where it appears that cognitive decline is progressing. Per family, he is constantly confusing his pills despite that they are being placed in labeled boxes. He will also get a phone call, but then when asked who he was talking to, he will not recall who he is talking to. No abnormal behaviors during day. No hallucinations. However does have some abnormal behaviors at night during sleep - will grasp at things that are not there. Still with respiratory issues, yet still smoking. Using bilevel nightly - no issues with the device. I do not have a compliance card available for download at time of visit. States that he feels refreshed in the AM. No AM headaches. Patient aware of cognitive deficits: I forget a lot. He has not been exercising his brain. Spends day watching tv. Did receive compliance report for PAP from 12/15/17-03/14/18 - used 90/ days with avg use of 4 hours and 20 minutes. Setting of 18/12 cmH2O. AHI is 0.6. Leak 95% 17.2 Visuospatial/exec (0-5) 2/5 Naming (0-3) 3/3 Attention forwards: 2 1 8 5 4 (0-1) 1 Attention backwards: 7 4 2 (0-1) 1 Tap for the A: F B A C M N A A J K L B A F A K D E A A A J A M O F A A B (1 point if 0 or 1 error) 1 Serial subtraction by 7: [id number] (3 points for correct 4 or 5; 2 points for 2 or 3 correct; 1 point for 1 correct) 0/3 Language: repeat: I only know that Marisol is the one to help today (0-1) 1 Language: repeat: The cat always hid under the couch when dogs were in the room (0-1) 11/22 Fluency: max words beginning with the letter F (1 point if 11 or more words) 0/ Abstraction: practice banana-orange=fruit. Then train-bicycle (1) AND watch-ruler (1) total: (2) 2/2 Delayed recall: recall words: face, velvet, muslim, jasper, red (0-5) 0/5 Orientation: date(1), month(1), year(1), day(1), place(1), city(1) max 6 points January, 2017, [place] 4 Total Score max 30 or 31 REVIEW OF SYSTEMS GENERAL:No weight loss, malaise or fevers. HEENT:Negative for frequent or significant headaches, No changes in hearing or vision, no nose bleeds or other nasal problems NECK:Negative for lumps, goiter, pain and significant neck swelling RESPIRATORY: CABRALES - chronic. CARDIOVASCULAR: Negative for chest pain, leg swelling or palpitations. GASTROINTESTINAL: Negative for abdominal discomfort, blood in stools or black stools or change in bowel habits GENITOURINARY: No history of dysuria, frequency or incontinence MUSCULOSKELETAL: Negative for joint pain or swelling, back pain or muscle pain. NEUROLOGIC:Negative for focal numbness or weakness, headaches and dizziness or syncope, vision changes, speech/language changes, changes in gait or falls -- besides those complaints as above in HPI. SKIN:Negative for lesions, rash, and itching. PSYCHIATRIC: Negative for sleep disturbance, uses Bilevel for PETE. HEMATOLOGIC/LYMPHATIC/IMMUNOLOGIC:Negative for prolonged bleeding, bruising easily or swollen nodes. The remainder of the ROS was reviewed and is negative. LAB/IMAGING: Those performed since patient's last visit have been reviewed. WBC (k/uL) Date Value 12/16/2017 4.40 RBC (m/uL) Date Value 12/16/2017 3.82 (L) Hemoglobin (g/dL) Date Value 12/16/2017 10.2 (L) Hematocrit (%) Date Value 12/16/2017 37.0 (L) MCV (fL) Date Value 12/16/2017 96.9 MCH (pG) Date Value 12/16/2017 26.7 MCHC (g/dL) Date Value 12/16/2017 27.6 (L) RDW-CV (%) Date Value 12/16/2017 15.5 (H) Platelet Count (k/uL) Date Value 12/16/2017 156 MPV (fL) Date Value 12/16/2017 10.1 Glucose (mg/dL) Date Value 02/17/2018 83 BUN (mg/dL) Date Value 02/17/2018 22 Creatinine (mg/dL) Date Value 02/17/2018 1.01 Sodium (mmol/L) Date Value 02/17/2018 147 (H) Potassium (mmol/L) Date Value 02/17/2018 4.5 Chloride (mmol/L) Date Value 02/17/2018 100 CO2 (mmol/L) Date Value 02/17/2018 40 (H) Protein, Total (g/dL) Date Value 08/24/2016 7.4 Albumin (g/dL) Date Value 08/24/2016 3.5 (L) Calcium (mg/dL) Date Value 02/17/2018 9.3 Alkaline Phosphatase (U/L) Date Value 08/24/2016 66 Bilirubin, Total (mg/dL) Date Value 08/24/2016 0.2 AST (U/L) Date Value 08/24/2016 20 ALT (U/L) Date Value 08/24/2016 12 BELKIS (no units) Date Value 09/13/2015 Negative <1:40 MEDICATIONS: potassium chloride (K-TAB) 10 mEq tablet Take 1 tablet by mouth daily with breakfast. isosorbide mononitrate ER (IMDUR) 30 mg 24 hr tablet TAKE 1 TABLET BY MOUTH EVERY DAY hydrALAZINE (APRESOLINE) 50 mg tablet Take 1 tablet by mouth three times daily. spironolactone (ALDACTONE) 25 mg tablet Take 1 tablet by mouth once daily. lisinopril (ZESTRIL, PRINIVIL) 20 mg tablet Take 1 tablet by mouth once daily. memantine XR (NAMENDA XR) 28 mg CSpX Take 1 capsule by mouth once daily. apixaban (ELIQUIS) 5 mg tab tab(s) Take 1 tablet by mouth twice daily. furosemide (LASIX) 20 mg tablet Take 1 tablet by mouth twice daily. digoxin (LANOXIN) 250 mcg tablet Take 1 tablet by mouth once daily. carvedilol (COREG) 25 mg tablet Take 1 tablet by mouth twice daily with meals. BIPAP finasteride (PROSCAR) 5 mg tablet Take 1 tablet by mouth once daily. levalbuterol (XOPENEX) 0.63 mg/3 mL nebulizer solution Use 3 mL via nebulizer every 6 hours as needed for Wheezing/Shortness of Breath (for wheezing). Dx: J44.9 budesonide (PULMICORT) 0.5 mg/2 mL nebulizer solution nitroglycerin sublingual (NITROQUICK) 0.4 mg SL tablet Dissolve 1 tablet under the tongue as needed. FOR CHEST PAIN. IF NO RELIEF CALL 911 budesonide (PULMICORT FLEXHALER) 180 mcg/actuation aepb Inhale 2 Puffs as instructed twice daily. predniSONE (DELTASONE) 10 mg tablet Take 10 mg by mouth once daily. COMPOUNDED PRESCRIPTION [facility] for home BP monitoring COMPOUNDED PRESCRIPTION Oxygen 3 liters Cyanocobalamin (VITAMIN B-12) 1,000 mcg subl Dissolve 1 tablet under the tongue once daily. 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 Upper lobe nodular infiltrates. - Unspecified essential hypertension FAMILY HISTORY Problem Relation Age of Onset - Hypertension Mother - Emphysema Father - Cancer Brother Lung SOCIAL HISTORY Social History Substance Use Topics - Smoking status: Current Every Day Smoker Packs/day: 1.00 Years: 50.00 Types: Cigarettes Start date: 1964 Last attempt to quit: 12/23/2014 - Smokeless tobacco: Never Used - Alcohol use Yes Comment: Infrequent beer. PHYSICAL EXAMINATION Blood pressure 90/58, pulse 73, weight 75.8 kg (167 lb), SpO2 98 %. General appearance: NAD, pleasant. HEENT: NC/AT Lungs: CTA bilaterally. CV: Reg rate but irreg rhythm nl S1, S2. No carotid bruits. Abd: Soft, nontender, nondistended. Extr: No cyanosis, clubbing but trace pedal edema. Extremity pulses trace. ? ? NEUROLOGICAL EXAM: General: Awake, alert, speech fluent, no dysarthria; see MOCA above. CN: PERRL, fundi appear normal including no evidence of papilledema, EOMI and without nystagmus, VFF to confrontation, facial sensation and strength are normal and symmetric, hearing is intact to finger rub bilaterally, palate and tongue movements are intact and symmetric. SCM and trapezius strength normal. Motor: Normal tone, bulk and strength (5/5) bilaterally (throughout extremities x4). Reflexes: 1/4 and symmetric. Coordination: FNF, SOFIA intact. No tremors. Sensation: LT intact throughout. No evidence of neglect. Gait: In wheel chair secondary to CABRALES today. Assessment and Plan: ASSESSMENT/PLAN: 1. Dementia without behavioral disturbance, unspecified dementia type - ICD9: 294.20, ICD10: F03.90 (primary diagnosis) Overall MOCA stable, although subjectively, patient may have more cognitive impairments at home then MOCA would predict. Discussed with patient and family possible considerations for adding Aricept vs Exelon, but also discussed possible SE and ADRs. After discussion, they would like to make no changes to medications today. Thus large portion of clinic visit was spent on discussing with them need for brain exercises - things such as puzzles, card games and social interactions. They also indicated that they may be moving to [facility] soon. They will let me know and if move takes place will attempt to help them find a neurologist near their new home. 2. PETE treated with BiPAP - ICD9: 327.23, ICD10: G47.33 Overall doing well by download. He states he is using almost the entire night each night. AHI controlled per download data. At this time encouraged compliance. Reminded to replace and clean equipment on a regular basis. Desmond Romero MD I spent 30 minutes in the visit, with more than 50% of the total bvuh-wj-yhih time of the visit in counseling / coordination of care. PULMONARY VISIT REPORT Observed: 03/04/2018 Status: F Source: [place] 9:53 AM [facility] REPOSITORY [facility] [address] [place] [address] OFFICE VISIT Date of Service: 03/02/18 MR#: [id number] Acct: [id number] Name: JIMMY BUTLER Rep #: [id number] : 1950 Provider: Kenna Trinh Age/Sex: 67/M Location: [facility] [place].PMW Status: Signed Assessment AND Plan 1. PETE (obstructive sleep apnea) G47.33 Status Chronic Plan Stable. Frequent napping during the day is likely a result of his significant deconditioning and frail state. Encouraged to use the BiPAP as rescue if needed. No need for any additional testing at this time. Follow-up with Dr. Arnett in 3 months. 2. Stage 4 very severe COPD by GOLD classification J44.9 Status Chronic Plan Wheezing on exam, more shortness of breath recently with chest tightness. Will treat with a prednisone taper. And he will resume his maintenance dose of prednisone 10 mg daily. No change in maintenance medications. Continue palliative care support, hospice appropriate. Follow-up with Dr. Arnett in 3 months. 3. Hypercapnic respiratory failure, chronic J96.12 Status Chronic Plan Continue supplemental oxygen as needed to maintain saturations 89-92%. He is using and benefiting from some mental oxygen. No indication for repeat testing. Follow-up with Dr. Arnett in 3 months. Plan Detail Other Medications New: prednisone take 4 tabs for three days, then 3 tabs for three days, then 10 mg PO QDAY 2 tabs for three days, then 1 tab for 3 days. Follow Up 3 Months ([facility]) HPI 3 M FU: Chief Complaint: Shortness of breath HPI Comments Details: This is a 67 year old very pleasant m, currently under the care of Elijah Wayne, here to follow up on very severe chronic obstructive pulmonary disease, chronic hypoxic respiratory failure and silicosis. JIMMY has not been treated with antibiotics and/or prednisone, and has not been treated in the ED/Urgent care for respiratory problems since the last office visit. Current medications consist of budesonide by nebulizer, DuoNeb by nebulizer, and pro-air rescue inhaler which is being used rarely. Medication side effects: negative for sore throat, thrush, hoarseness, mouth lesions, or bleeding from nose or mouth. The patient reports compliance with rinsing mouth out after each use. He also continues on 10 mg of prednisone daily. Current home oxygen use is 3 LPM at all times. Complaints report for the past 30 days shows 100% compliance, average use is 4 hours nightly. Current settings are 18/12 cm of water. Current AHI is controlled at 0.5 events per hour leaks do not appear to be an issue. He reports feeling rested in the morning. His reports that he naps frequently. He denies any episodes of nocturia, dry mouth in the morning or frequent headaches. Currently has an occasional nonproductive cough. He is having some chest tightness has been going on for approximately 3-5 days. He denies any sputum production or hemoptysis. He denies any chest pain or palpitations. He has not experienced any fever, chills or body aches. Continues to smoke approximately 5 cigarettes daily. See complete review of systems. COPD checklist: FEV1 is 18 % of predicted Currently smoking 1/2 PPD Dyspnea 4 Exacerbations in the past 12 months 2 Last 6 min walk Nutrition poor Mood depressed Influenza vaccine current Pneumococcal vaccine current Pulmonary Rehab currently *The GOLD (Global initiative on Obstructive Lung Disease) divides COPD into 4 categories based on the FEV1: I FEV1/FVC <0.7 and FEV1 <80% II FEV1/FVC <0.7 and FEV1 50-80% III FEV1/FVC <0.7 and FEV1 30-50% IV FEV1/FVC <0.7 and FEV1 <30% (or < 50% with respiratory failure) GOLD additionally stratifies patients by disease severity in order to guide therapy: A FEV1 >50% with few symptoms B FEV1 >50% with frequent symptoms C FEV1 <50% with few symptoms D FEV1 <50% with frequent symptoms Variable points on DELMY Index 0 1 2 3 Fev1 [] % of predicted 65 50-64 36-49 <35 Distance walked in 6 min >[phone] <149 MMRC dyspnea scale* 0-1 2 3 4 BMI >21 <21 DELMY Index Score 0-2 2% 6% 19% 3-4 2% 8% 32% 4-6 2% 14% 40% 7-10 5% 31% 80% MMR SCALE Grade Degree of breathlessness related to activities 0 Not troubled by breathlessness except on strenuous exercise Intake Vital Signs03/02/18 Height 5 ft 11 in 03/02/18 Weight: 167 lb 03/02/18 Body Mass Index (BMI) 23.3 Intake Visit Reasons: 3 M FU Allergies aspirin Adverse Reaction (Verified 11/17/17 12:54) Upset Stomach Medications Carvedilol [Coreg (Beta Kade)] 25 mg PO BID 09/09/15 [History Confirmed 03/02/18] Finasteride [Proscar] 5 mg PO DAILY 09/09/15 [History Confirmed 03/02/18] Vit B12/Levomefolate/Vit B6/B2 [l-Methyl-Mc Tablet] 1 tab PO 1700 09/09/15 [History Confirmed 03/02/18] Apixaban [Eliquis] 5 mg PO BID 06/19/16 [History Confirmed 03/02/18] Isosorbide Mononitrate [Imdur] 30 mg PO DAILY 06/19/16 [History Confirmed 03/02/18] Oxygen, Home [Home Oxygen] 3 lpm NASAL DAILY PRN PRN 08/12/16 [History Confirmed 03/02/18] hydrALAZINE [Apresoline] 50 mg PO TID 08/12/16 [History Confirmed 03/02/18] Spironolactone [Aldactone] 25 mg PO DAILY 12/11/16 [History Confirmed 03/02/18] Lisinopril [Zestril] 20 mg PO QHS 03/19/17 [History Confirmed 03/02/18] Acetaminophen [Tylenol Tablet] 650 mg PO Q6H PRN PRN #0 tab 03/22/17 [Rx Confirmed 03/02/18] Digoxin [Lanoxin] 250 mcg PO DAILY tab 03/22/17 [Rx Confirmed 03/02/18] Furosemide [Lasix] 40 mg PO BID@1000,1800 tab 03/22/17 [Rx Confirmed 03/02/18] Potassium Chloride [K-Dur] 20 meq PO DAILY tab 03/22/17 [Rx Confirmed 03/02/18] Ferrous Sulfate 325 mg PO DAILY@0800 04/02/17 [History Confirmed 03/02/18] Gabapentin [Neurontin] 100 mg PO BID 04/02/17 [History Confirmed 03/02/18] Omeprazole [Prilosec] 20 mg PO BID 04/02/17 [History Confirmed 03/02/18] predniSONE tablet 10 mg PO DAILY 04/02/17 [History Confirmed 03/02/18] memantine 5 mg tablet 5 mg PO QDAY 11/09/17 [History Confirmed 03/02/18] nystatin 100,000 unit/mL oral suspension 5 ml MUCOUS MEMBRANE TID #250 ml 11/17/17 [Rx Confirmed 03/02/18] ipratropium-albuterol 0.5 mg-3 mg(2.5 mg base)/3 mL nebulization soln 3 ml INHALATION Q4H PRN PRN #180 ml 11/18/17 [Rx Confirmed 03/02/18] budesonide 0.5 mg/2 mL suspension for nebulization 0.5 mg INHALATION Q6H #60 ml 11/19/17 [Rx Confirmed 03/02/18] prednisone 10 mg tablet 10 mg PO QDAY #30 tab 03/02/18 [Rx Confirmed 03/02/18] PFSH Medical History Hypersomnia (Chronic) Pleural effusion (Acute) Runny nose (Acute) PETE (obstructive sleep apnea) (Chronic) Stage 4 very severe COPD by GOLD classification (Chronic) Tobacco abuse (Chronic) Shortness of breath (Acute) Confusion (Acute) Hypercapnic respiratory failure, chronic (Chronic) Acute and chronic respiratory failure with hypercapnia (Chronic) Paroxysmal atrial fibrillation (Acute) Chronic respiratory failure (Chronic) Silicosis (Chronic) Acute on chronic systolic (congestive) heart failure (Acute) Pneumothorax on left (Acute) CHF (congestive heart failure) (Chronic) COPD (chronic obstructive pulmonary disease) (Chronic) Hypertension (Chronic) Surgical History History of implantable cardioverter-defibrillator (ICD) placement (Chronic) Family History Father Lung disease Brother Cancer lung Social History Smoking Status: Current every day smoker second hand exposure: Yes alcohol intake: never substance use type: does not use Review of Systems Const CONSTITUTIONAL: Positive fatigue; negative anorexia, body ache, chills, daytime sleepiness, fever(s), night sweats, oral thrush, stops breathing during sleep, weight loss, sleeping in chair, weight loss, weight gain, frequent colds, seasonal allergies, other, headache(s) or orthopnea EETM Ear Nose Throat Mouth: Positive hearing normal and post nasal drip; negative hard of hearing, hoarseness, dry mouth in morning, change in vision, itchy eyes, eye pain, swallowing Difficulty, ear pain, nose bleed, headache(s), mouth pain, nasal congestion, nasal discharge, sinus pain, sinus pressure, sore throat or other Cardio Cardiovascular: Negative chest pain, chest pain at rest, chest pain with activity, irregular heart rhythm, edema, shortness of breath when lying down, palpitations, murmur or other Resp Respiratory: Positive as per HPI, shortness of breath, wheezing and chest tightness; negative pain with cough, chest congestion, cough, pain on inspiration, inhalers, increase use of rescue inhalers, snoring, apnea or other Gastro Gastrointestional: Negative bloody stools, change in appetite, difficulty swallowing, reflux, hematemesis, melena stool, loose stool, constipation or other Genitourinary: Negative blood in urine, nocturia, pain with urination or other Musc Musculoskeletal: Negative body pain, back pain, neck pain or other Skin/Breast Skin/Breast: Negative dry skin, itching, rash, unusual bruising, breast lump or other Neuro Neurological: Negative restless legs, confusion, weakness or other Psych Psychocological: Negative abnormal sleep pattern, anxiety, thoughts of hurting self/others, hopelessness or other Lymph Lymphatic: Negative easy bleeding, easy bruising, swollen lymph nodes or other Exam Const Constitutional: Positive conversant, cooperative, in no acute respiratory distress, well developed, well nourished, good hygiene, frail appearing, thin, dyspenic and wearing supplemental oxygen Head Head: Positive normocephalic and atraumatic; negative cyanosis of lips/distal nose Eyes Eye: Positive clear conjunctiva and nystagmus; negative scleral abnormality Ears Ear: Positive hearing normal and external ears normal; negative hard of hearing Nose Nose: Positive external nose normal and no nasal discharge; negative epistaxis Mouth Mouth: Positive post nasal drip, dentures, oral mucosae normal, no lesions and posterior oropharynx is adequate; negative malodorous breath or oral thrush present Mallampati Score: I: Mallampati Score Neck Neck: Positive normal visual inspection, full ROM and trachea midline; negative lymphadenopathy, JVD or tender Chest Wall Chest: Positive normal inspection of the chest and symmetric chest movement; negative increased A/P diameter Resp lung sounds: Positive wheezes, wheeze present on forced exhalation, diminished, prolonged expiratory time and normal chronic state of increased work of breathing; negative rhonchi, rales or dullness to percussion Cardio Cardiac: Positive regular rate, regular rhythm, S1 normal and S2 normal; negative murmur GI GI: Positive normal to inspection and normal bowel sounds; negative distended Genitourinary: Positive deferred Musc Musculoskeletal: Positive ROM normal and in a wheelchair; negative kyphosis or scoliosis Skin Pulmonary Skin Exam: Positive intact; negative rash, lesion, ulcers, erythema, scaly or dermal atrophy Pulses Pulse: Yes pulses normal x4 extremities Extremities Extremities: Yes capillary refill normal, No clubbing, No cyanosis, No edema, No stasis dermatitis Neuro Neurologic: Yes conversant, Yes no focal neuro deficits, Yes cooperative, Yes normal cognition, Yes normal coordination, Yes understands questions, Yes normal concentration Lymph Lymphatic: No lymphadenopathy, No tenderness, No cervical adenopathy, No axillary adenopathy Psych Appearance: Positive grossly normal, eye contact and well kempt Mental Status: Positive mental status grossly normal Mood: Positive congruent mood Affect: Positive normal affect Coding Level of Care Code Off vis,est,level 4 Diagnoses PETE (obstructive sleep apnea) G47.33 Stage 4 very severe COPD by GOLD classification J44.9 Hypercapnic respiratory failure, chronic J96.12 03/04/18 0953 <Electronically signed by Kenna CHIU> Date Kenna Gilmore Signature: Date (if applicable) CC: Elijah Wayne MD CNPN Observed: 02/21/2018 Status: COMPLETED Source: [place] 12:00 AM [facility] REPOSITORY Telephone (UROLMN) CARRIEJIMMY ([id number]) 1950 M Date Time Provider Department 02/21/18 MASON DIAZ) UROOVIDIO During your visit today, we recorded the following information about you: STEPHAN Gannon 02/21/2018 11:18 AM Signed +ve urine culture, antibiotics escripted to local pharmacy, office will notify patient to start antibiotics And Patient will need a 2 week post treatment urine culture, orders placed Mason Diaz, [facility] [place], SUZI Caicedo Ma 02/21/2018 2:46 PM Signed Left message for patient to contact office. Julia Mcintosh Ma 02/22/2018 9:44 AM Signed Left detailed message to inform of antibiotic and need for post med culture. Judith Mcintosh Ma 02/22/2018 9:45 AM Signed Addended by: JUDITH MCINTOSH MA on: 02/22/2018 09:45 AM Modules accepted: Orders STEPHAN Gannon 02/22/2018 11:06 AM Signed Addended by: MASON DIAZ PA-C on: 02/22/2018 11:06 AM Modules accepted: Orders Allergies As of Date: 02/21/2018 Noted Allergy Reaction ASA (ASPIRIN) 07/19/2017 8 - GI Upset ASA (SALICYLATES) 01/29/2006 8 - GI Upset Date Reviewed: 01/24/2018 Reviewed by: Sophie Teague Ma - Fully Assessed Reason for Visit: Results, Lab [1201] Primary Visit Diagnosis:Benign prostatic hyperplasia with urinary frequency [N40.1, R35.0] Other Visit Diagnosis:Urinary tract infection without hematuria, site unspecified [N39.0] Order(s):nitrofurantoin monohydrate and macrocrystal (MACROBID) 100 mg capsuleTake 1 capsule by mouth twice daily for 10 days.Disp: 20 capsuleRfl: 0 URINE CULTURE [SQURCUL] Order #: [id number] Prescriptions as of 02/21/2018 Sig: NITROFURANTOIN MONOHYDRATE AND * Take 1 capsule by mouth twice* POTASSIUM CHLORIDE ER 10 MEQ * Take 1 tablet by mouth daily * ISOSORBIDE MONONITRATE ER 30 * TAKE 1 TABLET BY MOUTH EVERY * HYDRALAZINE 50 MG TABLET Take 1 tablet by mouth three * SPIRONOLACTONE 25 MG TABLET Take 1 tablet by mouth once d* LISINOPRIL 20 MG TABLET Take 1 tablet by mouth once d* MEMANTINE 28 MG CAPSULE SPRIN* Take 1 capsule by mouth once * APIXABAN 5 MG TABLET Take 1 tablet by mouth twice * FUROSEMIDE 20 MG TABLET Take 1 tablet by mouth twice * DIGOXIN 250 MCG TABLET Take 1 tablet by mouth once d* CARVEDILOL 25 MG TABLET Take 1 tablet by mouth twice * BIPAP FINASTERIDE 5 MG TABLET Take 1 tablet by mouth once d* LEVALBUTEROL 0.63 MG/3 ML BIBIANA* Use 3 mL via nebulizer every * BUDESONIDE 0.5 MG/2 ML SUSPEN* NITROGLYCERIN 0.4 MG SUBLINGU* Dissolve 1 tablet under the t* BUDESONIDE 180 MCG/ACTUATION * Inhale 2 Puffs as instructed * PREDNISONE 10 MG TABLET Take 10 mg by mouth once asad* COMPOUNDED PRESCRIPTION [facility]* COMPOUNDED PRESCRIPTION Oxygen 3 liters CYANOCOBALAMIN (VIT B-12) 1,0* Dissolve 1 tablet under the t* Problem List As Of Date 02/21/2018 Noted Resolved Hypertension [I10] INVALID FOR* Lumbar disc disease [M51.9] INVALID FOR* Cervical disc disease [M50.90] INVALID FOR* COPD (chronic obstructive pulmonary disease) [J*INVALID FOR* BPH (benign prostatic hyperplasia) [N40.0] INVALID FOR* Urethral stricture [N35.9] INVALID FOR* Difficulty voiding [R39.198] INVALID FOR* Frequency of urination [R35.0] INVALID FOR* Urinary retention [R33.9] INVALID FOR* Anemia [D64.9] INVALID FOR* Tobacco abuse [Z72.0] INVALID FOR* Nonischemic cardiomyopathy (HCC) [I42.8] INVALID FOR* Atrial fibrillation with rapid ventricular resp*INVALID FOR* AICD (automatic cardioverter/defibrillator) pre*INVALID FOR* Spontaneous pneumothorax [J93.83] INVALID FOR* Swallowing difficulty [R13.10] INVALID FOR* More... Prescriptions ordered this encounter Disp Refills Start End NITROFURANTOIN MONOHYDRATE AND MACROCR* 20 c* 0 02/21/2018 03/03/2018 Route: ORAL Sig: Take 1 capsule by mouth twice daily for 10 days. Encounter Status:Closed by MASON DIAZ PA-C on 02/21/18 DIGOXIN Collected: 02/17/2018 Status: F Source: [place] 11:45 AM [facility] REPOSITORY TYPE CODE TESTS RESULT OUT OF REFERENCE UNITS RANGE LAB DIG 0.6-1.2 ng/mL Low Digoxin <0.3 Result Comment: Provided therapeutic concentrations are based on the 2008 ESC Guidelines for the Diagnosis and Treatment of Acute and Chronic Heart Failure. Reference ranges and high/low indicator flags are provided as general guidelines only. The treating physician must determine appropriate target levels/dosing based on the specific clinical situation. Result rechecked. Performed By: #### DIG #### [facility] [address] [address] BASIC METABOLIC PANL Collected: 02/17/2018 Status: F Source: [place] 11:45 AM [facility] REPOSITORY TYPE CODE TESTS RESULT OUT OF REFERENCE UNITS RANGE LAB GLU 74-99 mg/dL Glucose 83 Result Comment: The [place] Diabetes Association (ADA) provides guidance for cutoff values for fasting glucose and random glucose. The ADA defines fasting as no caloric intake for at least 8 hours. Fas ting plasma glucose results between 100 to 125 mg/dL indicate increased risk for diabetes (prediabetes). Fasting plasma glucose results greater than or equal to 126 mg/dL meet the criteria for diagnosis of diabetes. In the absence of unequivocal hyperglycemia, results should be confirmed by repeat testing. In a patient with classic symptoms of hyperglycemia or hyperglycemic crisis, random plasma glucose results greater than or equal to 200 mg/dL meet the criteria for diagnosis of diabetes. Reference: Standards of Medical Care in Diabetes 2016, [place] [employer]. Diabetes Care. 2016.39(Suppl 1). LAB BUN 9-24 mg/dL BUN 22 LAB CRET 0.73-1.22 mg/dL Creatinine 1.01 LAB NA 136-144 mmol/L Sodium High 147 LAB K 3.7-5.1 mmol/L Potassium 4.5 LAB CL 97-105 mmol/L Chloride 100 LAB CO2 22-30 mmol/L CO2 High 40 LAB AGAP 9-18 mmol/L Low Anion Gap 7 LAB CA 8.5-10.2 mg/dL Calcium, Total 9.3 LAB GFRAA eGFR- Amer. >60 LAB GFRNAA . eGFR-All Other Races >60 Result Comment: eGFR (Estimated GFR) Units of measure: mL/min/1.73 meters squared eGFR is derived from the reexpressed MDRD Study equation using the following parameters: serum creatinine, age, gender and race. The creatinine assay has been calibrated to be traceable to IDMS. An eGFR <60 mL/min/1.73m2 for >3 months is consistent with chronic kidney disease. Refer to KDOQI guidelines for clinical interpretation. In patients with unstable renal function, e.g. those with acute kidney injury, the eGFR may not accurately reflect actual GFR. Performed By: #### BMP #### [facility] [address], [place] [address] Observed: 02/17/2018 Status: F Source: [place] URINE CULTURE 11:45 [facility] REPOSITORY Sp. Request/Comment: - Presurgical Sterilization Specimen received in preservative Culture Result - >=100,000 CFU/ml Enterococcus faecalis --> ABNORMAL ALERT Cephalosporins, clindamycin, and TMP-SMX are not effective for the treatment of enterococcal infections. --> ABNORMAL ALERT Normal Urogenital ramirez: --> ABNORMAL ALERT <1,000 CFU/ml --> ABNORMAL ALERT Coagulase negative Staphylococcus species --> ABNORMAL ALERT ORGANISM: Enterococcus faecalis METHOD: Minimum inhibitory concentration(Vitek) Antibiotic Interp JEANNE Status Ampicillin SUSCEPTIBLE <=2 F Nitrofurantoin SUSCEPTIBLE <=16 F Vancomycin SUSCEPTIBLE 2 F Performed By: #### URCUL #### [facility] [address] [place] [id number] OBSOLETE Observed: 01/27/2018 Status: COMPLETED Source: [place] 12:00 AM [facility] RE[facility] Refill (AGCARDWST) JIMMY BUTLER ([id number]) 1950 M Date Time Provider Department 01/27/18 JARETT FINN AGCARDWST During your visit today, we recorded the following information about you: Andre Martinez RN, RN 01/27/2018 1:46 PM Signed Patient's spouse phones requesting refills as follows: Pending Prescriptions Disp Refills POTASSIUM CHLORIDE ER 10 MEQ TABLET,EXTENDED RELEASE 90 tablet 3 Sig: Take 1 tablet by mouth daily with breakfast. FERNANDA: No Please review and advise. Andre Martinez RN Patient has been identified by name and date of : Yes Pending Prescriptions Disp Refills POTASSIUM CHLORIDE ER 10 MEQ TABLET,EXTENDED RELEASE 90 tablet 3 Sig: Take 1 tablet by mouth daily with breakfast. FERNANDA: No RX INSTRUCTIONS: Patient aware RX will be sent to pharmacy. No need to notify patient. CATALINA Madrigal MD 01/27/2018 1:59 PM Signed The following approved medication requests have been transmitted electronically. Signed Prescriptions Disp Refills potassium chloride (K-TAB) 10 mEq tablet 90 tablet 3 Sig: Take 1 tablet by mouth daily with breakfast. FERNANDA: No Authorizing Provider: JARETT FINN MD Adam Gilmor, RN, RN 01/27/2018 2:12 PM Signed escript confirmed Allergies As of Date: 01/27/2018 Noted Allergy Reaction ASA (ASPIRIN) 07/19/2017 8 - GI Upset ASA (SALICYLATES) 01/29/2006 8 - GI Upset Date Reviewed: 01/24/2018 Reviewed by: Sophie Teague Ma - Fully Assessed Reason for Visit: Refill Request [94] Order(s):potassium chloride (K-TAB) 10 mEq tabletTake 1 tablet by mouth daily with breakfast.Disp: 90 tabletRfl: 3 Prescriptions as of 01/27/2018 Sig: POTASSIUM CHLORIDE ER 10 MEQ * Take 1 tablet by mouth daily * ISOSORBIDE MONONITRATE ER 30 * TAKE 1 TABLET BY MOUTH EVERY * HYDRALAZINE 50 MG TABLET Take 1 tablet by mouth three * SPIRONOLACTONE 25 MG TABLET Take 1 tablet by mouth once d* LISINOPRIL 20 MG TABLET Take 1 tablet by mouth once d* MEMANTINE 28 MG CAPSULE SPRIN* Take 1 capsule by mouth once * APIXABAN 5 MG TABLET Take 1 tablet by mouth twice * FUROSEMIDE 20 MG TABLET Take 1 tablet by mouth twice * DIGOXIN 250 MCG TABLET Take 1 tablet by mouth once d* CARVEDILOL 25 MG TABLET Take 1 tablet by mouth twice * BIPAP FINASTERIDE 5 MG TABLET Take 1 tablet by mouth once d* LEVALBUTEROL 0.63 MG/3 ML BIBIANA* Use 3 mL via nebulizer every * BUDESONIDE 0.5 MG/2 ML SUSPEN* NITROGLYCERIN 0.4 MG SUBLINGU* Dissolve 1 tablet under the t* BUDESONIDE 180 MCG/ACTUATION * Inhale 2 Puffs as instructed * PREDNISONE 10 MG TABLET Take 10 mg by mouth once asad* COMPOUNDED PRESCRIPTION [facility]* COMPOUNDED PRESCRIPTION Oxygen 3 liters CYANOCOBALAMIN (VIT B-12) 1,0* Dissolve 1 tablet under the t* Problem List As Of Date 01/27/2018 Noted Resolved Hypertension [I10] INVALID FOR* Lumbar disc disease [M51.9] INVALID FOR* Cervical disc disease [M50.90] INVALID FOR* COPD (chronic obstructive pulmonary disease) [J*INVALID FOR* BPH (benign prostatic hyperplasia) [N40.0] INVALID FOR* Urethral stricture [N35.9] INVALID FOR* Difficulty voiding [R39.198] INVALID FOR* Frequency of urination [R35.0] INVALID FOR* Urinary retention [R33.9] INVALID FOR* Anemia [D64.9] INVALID FOR* Tobacco abuse [Z72.0] INVALID FOR* Nonischemic cardiomyopathy (HCC) [I42.8] INVALID FOR* Atrial fibrillation with rapid ventricular resp*INVALID FOR* AICD (automatic cardioverter/defibrillator) pre*INVALID FOR* Spontaneous pneumothorax [J93.83] INVALID FOR* Swallowing difficulty [R13.10] INVALID FOR* More... Prescriptions ordered this encounter Disp Refills Start End POTASSIUM CHLORIDE ER 10 MEQ TABLET,* 90 t* 3 01/27/2018 Route: ORAL Sig: Take 1 tablet by mouth daily with breakfast. Medications Discontinued During This Encounter potassium chloride (K-TAB) 10 mEq ta* 90 t* 3 12/04/2016 01/27/2018 Route: ORAL Sig: Take 1 tablet by mouth daily with breakfast. Disc: Reason for discontinue is not on file. Encounter Status:Closed by ANDRE MARTINEZ on 01/27/18 CNOV Observed: 01/24/2018 Status: COMPLETED Source: [place] 9:30 AM [facility] REPOSITORY Office Visit (CARDMM) JIMMY BUTLER ([id number]) 1950 M Date Time Provider Department 01/24/18 9:30 AM TONY RICK During your visit today, we recorded the following information about you: Pulse Blood pressure Weight 83/minute 124/72 75.8 kg Tony Rick MD, MD 01/24/2018 10:10 AM Signed EP STAFF NOTE: Please note: This note has been produced using speech recognition software and may contain errors related to that system including grammar, punctuation, spelling, gender and words and phrases that may be inappropriate Consultation requested by Dr. Finn for an opinion regarding management of an ICD and my final recommendations will be communicated back to the requesting physician by way of shared medical record OR letter via fax/US mail. PE: Vitals: BP 124/72 Pulse 83 Wt 75.8 kg (167 lb) SpO2 97% BMI 23.29 kg/m2 General: On home O2. In no acute distress. Skin: No clubbing. No cyanosis. Eyes: EOMI Oropharynx: No oral lesions. Neck: Supple, no JVD, no carotid bruits, carotids w/ normal upstroke. Lungs: diffuse wheezing bilaterally. Heart: IRIR, No M/G/R Abdomen: Soft, nontender, BS normal, no organomegaly, no bruits. Extremities: No peripheral edema bilaterally. Palpable distal pulses bilaterally. Neuro: Oriented x3, alert, cooperative, gait coordinated. DEVICE CHECK: UNDERLYING RHYTHM: SR ? BATTERY STATUS: Normal and shows no significant depletion. COUNTERS SINCE 04/26/17 ? ATRIAL ARRHYTHMIAS: AF burden ANDlt;1%. On eliquis ? VENTRICULAR ARRHYTHMIAS: There have been no ventricular detections since the last evaluation. ? LEAD MEASUREMENTS: Capture and sensing are appropriate. The pacing outputs maintain safety margin. Review of the lead impedance trends are normal. ? IMPLANT SITE/ SYMPTOMS: The incision and pocket are painfree (0/10), well healed and without signs of erosion or infection. No arm swelling, syncope, pre-syncope or device related pocket stimulation. ? OTHER DIAGNOSTICS: RV pacing ANDlt;1 %. ? PROGRAMMING CHANGES MADE TODAY: No changes made today ? PROBLEM LIST: Cardiomyopathy - post viral HTN NSVT - DDD-ICD 2014 at an OSH CHF - systolic Silicosis PAF CHADS VASc - CHF / HTN / Age - 1 - on Eliquis EKG 12-16-2017 - NSR - QRS IVCD - 112 msec ? PETE - on CPAP TTE 2016: - The left ventricle is moderately dilated. There is mild concentric left ventricular hypertrophy. Left ventricular systolic function is moderately decreased. EF = 35 ? 5% (visual est.) Baseline left ventricular diastolic function ?is consistent with abnormal relaxation (stage 1). - The right ventricle is normal in size. Right ventricular systolic function is normal. - The left atrial cavity is mildly dilated. - The right atrial cavity is dilated. - There are no significant valvular abnormalities. - Mild MV thickening with trivial MR - 1+ TR - Mild AV sclerosis with 1+ AI - Estimated right ventricular systolic pressure is 51 mmHg consistent with moderate pulmonary hypertension. Estimated right atrial pressure is 5 mmHg. - Mild aortic root dilatation - Exam was compared with the prior CC echocardiographic exam performed on 05/29/2015. LVEF is probably the same. Prior images were off axis. The RVSP is higher. Aortic root is no larger after remeasuring. Exercise stress : 1. THE TEST WAS TERMINATED DUE TO GENERAL FATIGUE. ? 2. ADEQUATE HEART RATE RESPONSE OF ?86% ?PREDICTED MAXIMAL HEART RATE, ABNORMAL HEART RATE RECOVERY @ 1 MINUTE POST-EXERCISE. ?INCREASED RISK, ABNORMAL CHRONOTROPIC RESPONSE INDEX (ANDlt;/= 0.62 ON BETA- KADE) INCREASED RISK. ? 3. FUNCTIONAL CAPACITY IS ESTIMATED AT ?3 METS, STAGE ?2 ?MANUAL PROTOCOL. MAXIMAL RATE PRESSURE PRODUCT IS ?61603, ?POOR FUNCTIONAL CAPACITY FOR AGE AND GENDER. ?HIGH RISK. ? 4. RESTING HYPERTENSION. ? 5. NONDIAGNOSTIC ST SEGMENTS DUE TO ABNORMAL RESTING ECG. ? 7. ANGINA WAS NOT PROVOKED BY STRESS. ? 8. FREQUENT VENTRICULAR ECTOPY AT REST REMAINED UNCHANGED DURING STRESS, MULTIFOCAL PVC'S DURING THE TEST, PAC'S DURING THE TEST. ? 9. IN COMPARISON TO LAST TEST, GREATER ABNORMALITY DUE TO WORK CAPACITY. CONCLUSION: ? ABNORMAL DUE TO: POOR FUNCTIONAL CAPACITY. ADDITIONAL COMMENTS: ? NON-DIAGNOSTIC EXERCISE STRESS ECG AT 86% PMHR AND 2.5 METS DUE TO ABNORMAL RESTING ECG. ? CLINICALLY NEGATIVE FOR ISCHEMIA. OXYGEN SATURATION 93% ON 3 L/MIN AT REST AND 90-91% ON 4 L/MIN DURING LOW LEVEL EXERCISE. ? NOTE VERY POOR EXERCISE CAPACITY AND CHRONOTROPIC RESPONSE.. IMPRESSION: 67 y/o with a NICM, EF 35%, s/p DDD-ICD at an OSH and PAF on Xarelto. He presents to establish longitudinal care for his ICD He is SOB with exertion. He continues to smoke. He has previously completed pulmonary rehab x2. Unable to complete cardiac rehab. Low burden of AF on last device check - 1%. In AF today - not acutely aware. Rate controlled. On Coreg 25 mg BID. On Xarelto - tolerating well without bleeding. Discussed remotes - deferred - wants to continue q6 month checks. PLAN: 1. Follow burden of AF - as burden worsens may benefit from a switch to a rhythm control strategy - options are going to be very limited in the setting of his impaired LV function and severe COPD - likely limited to Tikosyn. QTc 424 on EKG . renal function normal. 2. Continue Eliquis 3. 6 month follow up This note was created with electronic dictation and errors in syntax and meaning may have occurred. Tony Rick MD Pager: [phone] Office: [phone] I personally examined the patient and repeated the shabazz components of the exam and cardiac history, past medical and surgical history, social and family history. The assessment and plan were formulated and discussed with the patient and family. I spent over 25 minutes (face time) and greater than 50% of this time was spent counseling and/or coordinating the care of the patient with regard the diagnosis and medical regimen Referring Physician: Ishmael Wayne MD [address] [place] [address] [place] [address] Jarett Finn MD [address] [facility] [address] Referring Provider: JARETT FINN [[id number]] Allergies As of Date: 01/24/2018 Noted Allergy Reaction ASA (ASPIRIN) 07/19/2017 8 - GI Upset ASA (SALICYLATES) 01/29/2006 8 - GI Upset Date Reviewed: 01/24/2018 Reviewed by: Sophie Teague Ma - Fully Assessed Reason for Visit: CARD New Patient Consult [1228] Primary Visit Diagnosis:Atrial fibrillation, persistent (HCC) [I48.1] Order(s):ECG COMPLETE W INTERPRETATION [ECG01] Order #: [id number] FUTURE PACER OR ICD CHECK [[id number]] Order #: [id number]: 1 FUTURE Prescriptions as of 01/24/2018 Sig: ISOSORBIDE MONONITRATE ER 30 * TAKE 1 TABLET BY MOUTH EVERY * HYDRALAZINE 50 MG TABLET Take 1 tablet by mouth three * SPIRONOLACTONE 25 MG TABLET Take 1 tablet by mouth once d* LISINOPRIL 20 MG TABLET Take 1 tablet by mouth once d* MEMANTINE 28 MG CAPSULE SPRIN* Take 1 capsule by mouth once * APIXABAN 5 MG TABLET Take 1 tablet by mouth twice * FUROSEMIDE 20 MG TABLET Take 1 tablet by mouth twice * DIGOXIN 250 MCG TABLET Take 1 tablet by mouth once d* CARVEDILOL 25 MG TABLET Take 1 tablet by mouth twice * BIPAP FINASTERIDE 5 MG TABLET Take 1 tablet by mouth once d* LEVALBUTEROL 0.63 MG/3 ML BIBIANA* Use 3 mL via nebulizer every * BUDESONIDE 0.5 MG/2 ML SUSPEN* POTASSIUM CHLORIDE ER 10 MEQ * Take 1 tablet by mouth daily * NITROGLYCERIN 0.4 MG SUBLINGU* Dissolve 1 tablet under the t* BUDESONIDE 180 MCG/ACTUATION * Inhale 2 Puffs as instructed * PREDNISONE 10 MG TABLET Take 10 mg by mouth once asad* COMPOUNDED PRESCRIPTION [facility] for ho* COMPOUNDED PRESCRIPTION Oxygen 3 liters CYANOCOBALAMIN (VIT B-12) 1,0* Dissolve 1 tablet under the t* Problem List As Of Date 01/24/2018 Noted Resolved Hypertension [I10] INVALID FOR* Lumbar disc disease [M51.9] INVALID FOR* Cervical disc disease [M50.90] INVALID FOR* COPD (chronic obstructive pulmonary disease) [J*INVALID FOR* BPH (benign prostatic hyperplasia) [N40.0] INVALID FOR* Urethral stricture [N35.9] INVALID FOR* Difficulty voiding [R39.198] INVALID FOR* Frequency of urination [R35.0] INVALID FOR* Urinary retention [R33.9] INVALID FOR* Anemia [D64.9] INVALID FOR* Tobacco abuse [Z72.0] INVALID FOR* Nonischemic cardiomyopathy (HCC) [I42.8] INVALID FOR* Atrial fibrillation with rapid ventricular resp*INVALID FOR* AICD (automatic cardioverter/defibrillator) pre*INVALID FOR* Spontaneous pneumothorax [J93.83] INVALID FOR* Swallowing difficulty [R13.10] INVALID FOR* More... Disposition: Return in 6 months (on 07/27/2018). Follow-up and Disposition History Recorded Encounter Status:Closed by TONY RICK MD on 01/24/18 PROGRESS Observed: 01/23/2018 Status: COMPLETED Source: [place] 9:24 AM [facility] REPOSITORY O ID: [id number] Author: Tony Rick MD Service: (none) Author Type: Physician Type: Progress Notes Filed: 01/24/2018 10:10 AM Note Text: EP STAFF NOTE: Please note: This note has been produced using speech recognition software and may contain errors related to that system including grammar, punctuation, spelling, gender and words and phrases that may be inappropriate Consultation requested by Dr. Finn for an opinion regarding management of an ICD and my final recommendations will be communicated back to the requesting physician by way of shared medical record OR letter via fax/US mail. PE: Vitals: BP 124/72 Pulse 83 Wt 75.8 kg (167 lb) SpO2 97% BMI 23.29 kg/m2 General: On home O2. In no acute distress. Skin: No clubbing. No cyanosis. Eyes: EOMI Oropharynx: No oral lesions. Neck: Supple, no JVD, no carotid bruits, carotids w/ normal upstroke. Lungs: diffuse wheezing bilaterally. Heart: IRIR, No M/G/R Abdomen: Soft, nontender, BS normal, no organomegaly, no bruits. Extremities: No peripheral edema bilaterally. Palpable distal pulses bilaterally. Neuro: Oriented x3, alert, cooperative, gait coordinated. DEVICE CHECK: UNDERLYING RHYTHM: SR ? BATTERY STATUS: Normal and shows no significant depletion. COUNTERS SINCE 04/26/17 ? ATRIAL ARRHYTHMIAS: AF burden <1%. On eliquis ? VENTRICULAR ARRHYTHMIAS: There have been no ventricular detections since the last evaluation. ? LEAD MEASUREMENTS: Capture and sensing are appropriate. The pacing outputs maintain safety margin. Review of the lead impedance trends are normal. ? IMPLANT SITE/ SYMPTOMS: The incision and pocket are painfree (0/10), well healed and without signs of erosion or infection. No arm swelling, syncope, pre-syncope or device related pocket stimulation. ? OTHER DIAGNOSTICS: RV pacing <1 %. ? PROGRAMMING CHANGES MADE TODAY: No changes made today ? PROBLEM LIST: Cardiomyopathy - post viral HTN NSVT - DDD-ICD 2014 at an OSH CHF - systolic Silicosis PAF CHADS VASc - CHF / HTN / Age - 1 - on Eliquis EKG 12-16-2017 - NSR - QRS IVCD - 112 msec ? PETE - on CPAP TTE 2016: - The left ventricle is moderately dilated. There is mild concentric left ventricular hypertrophy. Left ventricular systolic function is moderately decreased. EF = 35 ? 5% (visual est.) Baseline left ventricular diastolic function ?is consistent with abnormal relaxation (stage 1). - The right ventricle is normal in size. Right ventricular systolic function is normal. - The left atrial cavity is mildly dilated. - The right atrial cavity is dilated. - There are no significant valvular abnormalities. - Mild MV thickening with trivial MR - 1+ TR - Mild AV sclerosis with 1+ AI - Estimated right ventricular systolic pressure is 51 mmHg consistent with moderate pulmonary hypertension. Estimated right atrial pressure is 5 mmHg. - Mild aortic root dilatation - Exam was compared with the prior CC echocardiographic exam performed on 05/29/2015. LVEF is probably the same. Prior images were off axis. The RVSP is higher. Aortic root is no larger after remeasuring. Exercise stress : 1. THE TEST WAS TERMINATED DUE TO GENERAL FATIGUE. ? 2. ADEQUATE HEART RATE RESPONSE OF ?86% ?PREDICTED MAXIMAL HEART RATE, ABNORMAL HEART RATE RECOVERY @ 1 MINUTE POST-EXERCISE. ?INCREASED RISK, ABNORMAL CHRONOTROPIC RESPONSE INDEX (</= 0.62 ON BETA-KADE) INCREASED RISK. ? 3. FUNCTIONAL CAPACITY IS ESTIMATED AT ?3 METS, STAGE ?2 ?MANUAL PROTOCOL. MAXIMAL RATE PRESSURE PRODUCT IS ?[id number], ?POOR FUNCTIONAL CAPACITY FOR AGE AND GENDER. ?HIGH RISK. ? 4. RESTING HYPERTENSION. ? 5. NONDIAGNOSTIC ST SEGMENTS DUE TO ABNORMAL RESTING ECG. ? 7. ANGINA WAS NOT PROVOKED BY STRESS. ? 8. FREQUENT VENTRICULAR ECTOPY AT REST REMAINED UNCHANGED DURING STRESS, MULTIFOCAL PVC'S DURING THE TEST, PAC'S DURING THE TEST. ? 9. IN COMPARISON TO LAST TEST, GREATER ABNORMALITY DUE TO WORK CAPACITY. CONCLUSION: ? ABNORMAL DUE TO: POOR FUNCTIONAL CAPACITY. ADDITIONAL COMMENTS: ? NON-DIAGNOSTIC EXERCISE STRESS ECG AT 86% PMHR AND 2.5 METS DUE TO ABNORMAL RESTING ECG. ? CLINICALLY NEGATIVE FOR ISCHEMIA. OXYGEN SATURATION 93% ON 3 L/MIN AT REST AND 90-91% ON 4 L/MIN DURING LOW LEVEL EXERCISE. ? NOTE VERY POOR EXERCISE CAPACITY AND CHRONOTROPIC RESPONSE.. IMPRESSION: 67 y/o with a NICM, EF 35%, s/p DDD-ICD at an OSH and PAF on Xarelto. He presents to establish longitudinal care for his ICD He is SOB with exertion. He continues to smoke. He has previously completed pulmonary rehab x2. Unable to complete cardiac rehab. Low burden of AF on last device check - 1%. In AF today - not acutely aware. Rate controlled. On Coreg 25 mg BID. On Xarelto - tolerating well without bleeding. Discussed remotes - deferred - wants to continue q6 month checks. PLAN: 1. Follow burden of AF - as burden worsens may benefit from a switch to a rhythm control strategy - options are going to be very limited in the setting of his impaired LV function and severe COPD - likely limited to Tikosyn. QTc 424 on EKG . renal function normal. 2. Continue Eliquis 3. 6 month follow up This note was created with electronic dictation and errors in syntax and meaning may have occurred. Tony Rick MD Pager: [phone] Office: [phone] I personally examined the patient and repeated the shabazz components of the exam and cardiac history, past medical and surgical history, social and family history. The assessment and plan were formulated and discussed with the patient and family. I spent over 25 minutes (face time) and greater than 50% of this time was spent counseling and/or coordinating the care of the patient with regard the diagnosis and medical regimen Referring Physician: Ishmael Wayne MD [address] [place] [address] [place] [address] Jarett Finn MD [address] [place] [id number] PSA, DIAGNOSTIC Collected: 01/06/2018 Status: F Source: [place] 1:33 PM [facility] REPOSITORY TYPE CODE TESTS RESULT OUT OF REFERENCE UNITS RANGE LAB PSA 0.00-2.59 ng/mL PSA, Diagnostic 0.13 Result Comment: Total PSA test methodology used is the Electrochemiluminescence Immunoassay. Performed By: #### PSA #### [facility] [employer] [address] [place], [place] [address] DIGOXIN Collected: 01/06/2018 Status: F Source: [place] 1:33 PM [facility] REPOSITORY TYPE CODE TESTS RESULT OUT OF REFERENCE UNITS RANGE LAB DIG 0.5-1.0 ng/mL High Digoxin 1.2 Result Comment: Reference ranges and high/low indicator flags are provided as general guidelines only. The treating physician must determine appropriate target levels/dosing based on the specific clinical situation. Performed By: #### DIG #### [facility] [employer] [address], [place] [address] OBSOLETE Observed: 12/20/2017 Status: COMPLETED Source: [place] 12:00 AM [facility] REPOSITORY Telephone (UROLMN) JIMMY BUTLER ([id number]) 1950 M Date Time Provider Department 12/20/17 MASON DIAZ) ALONSO During your visit today, we recorded the following information about you: Allergies As of Date: 12/20/2017 Noted Allergy Reaction ASA (ASPIRIN) 07/19/2017 8 - GI Upset ASA (SALICYLATES) 01/29/2006 8 - GI Upset Date Reviewed: 12/16/2017 Reviewed by: Judith Mcintosh Ma - Fully Assessed Reason for Visit: Refill Request [94] Primary Visit Diagnosis:Acute cystitis without hematuria [N30.00] Order(s):nitrofurantoin monohydrate and macrocrystal (MACROBID) 100 mg capsuleTake 1 capsule by mouth twice daily for 7 days.Disp: 14 capsuleRfl: 0 URINE CULTURE [SQURCUL] Order #: [id number] Prescriptions as of 12/20/2017 Sig: NITROFURANTOIN MONOHYDRATE AND * Take 1 capsule by mouth twice* ISOSORBIDE MONONITRATE ER 30 * TAKE 1 TABLET BY MOUTH EVERY * HYDRALAZINE 50 MG TABLET Take 1 tablet by mouth three * SPIRONOLACTONE 25 MG TABLET Take 1 tablet by mouth once d* LISINOPRIL 20 MG TABLET Take 1 tablet by mouth once d* MEMANTINE 28 MG CAPSULE SPRIN* Take 1 capsule by mouth once * APIXABAN 5 MG TABLET Take 1 tablet by mouth twice * FUROSEMIDE 20 MG TABLET Take 1 tablet by mouth twice * DIGOXIN 250 MCG TABLET Take 1 tablet by mouth once d* CARVEDILOL 25 MG TABLET Take 1 tablet by mouth twice * BIPAP FINASTERIDE 5 MG TABLET Take 1 tablet by mouth once d* LEVALBUTEROL 0.63 MG/3 ML BIBIANA* Use 3 mL via nebulizer every * BUDESONIDE 0.5 MG/2 ML SUSPEN* POTASSIUM CHLORIDE ER 10 MEQ * Take 1 tablet by mouth daily * NITROGLYCERIN 0.4 MG SUBLINGU* Dissolve 1 tablet under the t* BUDESONIDE 180 MCG/ACTUATION * Inhale 2 Puffs as instructed * PREDNISONE 10 MG TABLET Take 10 mg by mouth once asad* COMPOUNDED PRESCRIPTION [facility] for ho* COMPOUNDED PRESCRIPTION Oxygen 3 liters CYANOCOBALAMIN (VIT B-12) 1,0* Dissolve 1 tablet under the t* Problem List As Of Date 12/20/2017 Noted Resolved Hypertension [I10] INVALID FOR* Lumbar disc disease [M51.9] INVALID FOR* Cervical disc disease [M50.90] INVALID FOR* COPD (chronic obstructive pulmonary disease) [J*INVALID FOR* BPH (benign prostatic hyperplasia) [N40.0] INVALID FOR* Urethral stricture [N35.9] INVALID FOR* Difficulty voiding [R39.198] INVALID FOR* Frequency of urination [R35.0] INVALID FOR* Urinary retention [R33.9] INVALID FOR* Anemia [D64.9] INVALID FOR* Tobacco abuse [Z72.0] INVALID FOR* Nonischemic cardiomyopathy (HCC) [I42.8] INVALID FOR* Atrial fibrillation with rapid ventricular resp*INVALID FOR* AICD (automatic cardioverter/defibrillator) pre*INVALID FOR* Spontaneous pneumothorax [J93.83] INVALID FOR* Swallowing difficulty [R13.10] INVALID FOR* More... Prescriptions ordered this encounter Disp Refills Start End NITROFURANTOIN MONOHYDRATE AND MACROCR* 14 c* 0 12/20/2017 12/27/2017 Route: ORAL Sig: Take 1 capsule by mouth twice daily for 7 days. Encounter Status:Closed by [facility] DIAZ [facility]C [facility]: 12/20/2017 Status: COMPLETED Source: [place] 12:00 AM [facility] REPOSITORY Telephone (UROLMN) JIMMY BUTLER ([id number]) 1950 M Date Time Provider Department 12/20/17 MASON DIAZ) UROOVIDIO During your visit today, we recorded the following information about you: Rose Marie Escamilla LPN 12/22/2017 9:57 AM Signed +ve Urine culture, please notify pt , Macrobid escripted Patient will need a 2 week post treatment urine culture, orders placed TRISH Bernal, JADE, PAMartin (Routing comment) Patient notified. Allergies As of Date: 12/20/2017 Noted Allergy Reaction ASA (ASPIRIN) 07/19/2017 8 - GI Upset ASA (SALICYLATES) 01/29/2006 8 - GI Upset Date Reviewed: 12/16/2017 Reviewed by: Judith Mcintosh Ma - Fully Assessed Reason for Visit: Refill Request [94] Primary Visit Diagnosis:Acute cystitis without hematuria [N30.00] Order(s):nitrofurantoin monohydrate and macrocrystal (MACROBID) 100 mg capsuleTake 1 capsule by mouth twice daily for 7 days.Disp: 14 capsuleRfl: 0 URINE CULTURE [SQURCUL] Order #: [id number] Prescriptions as of 12/20/2017 Sig: NITROFURANTOIN MONOHYDRATE AND * Take 1 capsule by mouth twice* ISOSORBIDE MONONITRATE ER 30 * TAKE 1 TABLET BY MOUTH EVERY * HYDRALAZINE 50 MG TABLET Take 1 tablet by mouth three * SPIRONOLACTONE 25 MG TABLET Take 1 tablet by mouth once d* LISINOPRIL 20 MG TABLET Take 1 tablet by mouth once d* MEMANTINE 28 MG CAPSULE SPRIN* Take 1 capsule by mouth once * APIXABAN 5 MG TABLET Take 1 tablet by mouth twice * FUROSEMIDE 20 MG TABLET Take 1 tablet by mouth twice * DIGOXIN 250 MCG TABLET Take 1 tablet by mouth once d* CARVEDILOL 25 MG TABLET Take 1 tablet by mouth twice * BIPAP FINASTERIDE 5 MG TABLET Take 1 tablet by mouth once d* LEVALBUTEROL 0.63 MG/3 ML BIBIANA* Use 3 mL via nebulizer every * BUDESONIDE 0.5 MG/2 ML SUSPEN* POTASSIUM CHLORIDE ER 10 MEQ * Take 1 tablet by mouth daily * NITROGLYCERIN 0.4 MG SUBLINGU* Dissolve 1 tablet under the t* BUDESONIDE 180 MCG/ACTUATION * Inhale 2 Puffs as instructed * PREDNISONE 10 MG TABLET Take 10 mg by mouth once asad* COMPOUNDED PRESCRIPTION [facility] for ho* COMPOUNDED PRESCRIPTION Oxygen 3 liters CYANOCOBALAMIN (VIT B-12) 1,0* Dissolve 1 tablet under the t* Problem List As Of Date 12/20/2017 Noted Resolved Hypertension [I10] INVALID FOR* Lumbar disc disease [M51.9] INVALID FOR* Cervical disc disease [M50.90] INVALID FOR* COPD (chronic obstructive pulmonary disease) [J*INVALID FOR* BPH (benign prostatic hyperplasia) [N40.0] INVALID FOR* Urethral stricture [N35.9] INVALID FOR* Difficulty voiding [R39.198] INVALID FOR* Frequency of urination [R35.0] INVALID FOR* Urinary retention [R33.9] INVALID FOR* Anemia [D64.9] INVALID FOR* Tobacco abuse [Z72.0] INVALID FOR* Nonischemic cardiomyopathy (HCC) [I42.8] INVALID FOR* Atrial fibrillation with rapid ventricular resp*INVALID FOR* AICD (automatic cardioverter/defibrillator) pre*INVALID FOR* Spontaneous pneumothorax [J93.83] INVALID FOR* Swallowing difficulty [R13.10] INVALID FOR* More... Prescriptions ordered this encounter Disp Refills Start End NITROFURANTOIN MONOHYDRATE AND MACROCR* 14 c* 0 12/20/2017 12/27/2017 Route: ORAL Sig: Take 1 capsule by mouth twice daily for 7 days. Encounter Status:Closed by MASON DIAZ PA-C on 12/20/17 PROGRESS Observed: 12/16/2017 Status: COMPLETED Source: [place] 3:48 PM [facility] REPOSITORY [facility] ID: [id number] Author: Mason Diaz (Pa) Service: (none) Author Type: Physician Electrical Engineering Teacher Type: Progress Notes Filed: 12/16/2017 3:55 PM Note Text: CC : BPH and Urethral Stricture HPI: Patient here for one year follow-up. With an increase in urinary frequency and U/a with Pyuria He is tollerating Proscar well. He may need urethral dilation in the near future if he starts to have worsening LUTS LAB RESULTS: Results for orders placed or performed in visit on 12/16/17 UA DIP, URINE (POC) Result Value Ref Range GLUCOSE UA (POCT) Negative Neg mg/dL BILIRUBIN UA (POCT) Negative Neg KETONE UA (POCT) Negative Neg mg/dL SPECIFIC GRAVITY UA (POCT) 1.020 1.005 - 1.030 HEMOGLOBIN/BLOOD UA (POCT) Negative Neg PH UA (POCT) 6.0 4.5 - 8 PROTEIN UA (POCT) Negative Neg mg/dL UROBILINOGEN UA (POCT) 0.2 Normal(<1.1) E.U./dL NITRITE UA (POCT) Negative Neg LEUKOCYTES UA (POCT) Moderate (A) Neg COLOR UA (POCT) Yellow CLARITY UA (POCT) Clear Urine Culture sent today Physical Exam: PHYSICAL EXAMINATION: Blood pressure 110/74, pulse 80, weight 75.3 kg (166 lb). General appearance: cooperative, pleasant, no acute distress, alert and oriented, well hydrated, well nourished male. IMPRESSION: Encounter Diagnosis ICD-10-CM 1. Dysuria R30.0 UA DIP, URINE (POC) URINE CULTURE PLAN: Office Visit on 12/16/17 -UA DIP, URINE (POC) -URINE CULTURE Continue Proscar 5 mg as before If patient has hematuria or increase in NTF he will make a sooner appointment for flexible cystoscopy Call patient with urine culture results > > 1 year Appt TRISH Fitzgerald MT, PA-C with PSA prior if indicated TRISH Bernal MT, PA-C PROGRESS Observed: 12/16/2017 Status: COMPLETED Source: [place] 3:43 PM [facility] REPOSITORY HNO ID: [id number] Author: Jarett Finn Service: (none) Author Type: Physician Type: Progress Notes Filed: 12/16/2017 3:47 PM Note Text: PERTINENT CARDIAC HISTORY Cardiomyopathy - post viral HTN NSVT - ICD 2014 CHF - systolic Silicosis PAF ADHERENCE TO GUIDELINES ANDREA-I or ARB for HF with prior LVEF<40 (NQF 0081) - met ASA or Plavix for ASHD (NQF 0067) - N/A Beta kade for ASHD with prior [place] or prior LVEF<40 (NQF 0070) - N/A Beta kade for HF with prior LVEF<40 (NQF 0083) - met ANDREA-I or ARB for ASHD with DM or prior LVEF<40 (NQF 0066) - N/A Statin therapy for ASHD or FHL or DM - N/A BMI documented and plan if >25 (NQF 0421) - lifestyle recommendation form Tobacco use screening and referral (NQF 0028) - lifestyle recommendation form Recommendation for whole food, plant based diet - lifestyle recommendation form CLINICAL IMPRESSION/PLAN: Jimmy Butler has stable nonischemic cardiomyopathy. He is well compensated, despite his respiratory disease. There is no evidence of volume overload. His arrhythmia is clinically stable. He's had no recent atrial arrhythmias, although ICD check is currently due. This will be carried out at the [facility]. Blood pressure is running borderline low. He may benefit from a down titration of his hydralazine. I've asked him to call with vital signs in the next few weeks. For monitoring drug therapy, he will undergo lipid profile, BMP, CBC and digoxin level. I will see him in 6 months or as needed. If there is increased chest pain or shortness of breath, I've asked him to contact me. Written and verbal health teaching given to patient, patient verbalizes understanding and agrees with treatment plan. This note was generated using [employer] voice recognition system, and there may be some incorrect words, spellings, and punctuation that were not noted in checking the note before saving. DIAGNOSIS FOR VISIT: Cardiomyopathy Hypertension CHF HISTORY OF PRESENT ILLNESS Jimmy Butler returns for follow-up of multiple cardiac issues, as noted above. His pulmonary disease continues to worsen. He denies chest discomfort. He has had mild edema. He's had no definite orthopnea but is on chronic oxygen therapy and is always short of breath. He has had no recent palpitations. He has received no shocks from his defibrillator. He denies syncope, TIAs, amaurosis or claudication. Blood pressures at home have been consistently greater than 100 systolic. ALLERGIES: ALLERGIES Allergen Reactions - Asa [Aspirin] GI Upset - Asa [Salicylates] GI Upset CURRENT OUTPATIENT MEDICATIONS: isosorbide mononitrate ER (IMDUR) 30 mg 24 hr tablet TAKE 1 TABLET BY MOUTH EVERY DAY hydrALAZINE (APRESOLINE) 50 mg tablet Take 1 tablet by mouth three times daily. spironolactone (ALDACTONE) 25 mg tablet Take 1 tablet by mouth once daily. lisinopril (ZESTRIL, PRINIVIL) 20 mg tablet Take 1 tablet by mouth once daily. memantine XR (NAMENDA XR) 28 mg CSpX Take 1 capsule by mouth once daily. apixaban (ELIQUIS) 5 mg tab tab(s) Take 1 tablet by mouth twice daily. furosemide (LASIX) 20 mg tablet Take 1 tablet by mouth twice daily. digoxin (LANOXIN) 250 mcg tablet Take 1 tablet by mouth once daily. carvedilol (COREG) 25 mg tablet Take 1 tablet by mouth twice daily with meals. BIPAP finasteride (PROSCAR) 5 mg tablet Take 1 tablet by mouth once daily. levalbuterol (XOPENEX) 0.63 mg/3 mL nebulizer solution Use 3 mL via nebulizer every 6 hours as needed for Wheezing/Shortness of Breath (for wheezing). Dx: J44.9 budesonide (PULMICORT) 0.5 mg/2 mL nebulizer solution potassium chloride (K-TAB) 10 mEq tablet Take 1 tablet by mouth daily with breakfast. nitroglycerin sublingual (NITROQUICK) 0.4 mg SL tablet Dissolve 1 tablet under the tongue as needed. FOR CHEST PAIN. IF NO RELIEF CALL 911 budesonide (PULMICORT FLEXHALER) 180 mcg/actuation aepb Inhale 2 Puffs as instructed twice daily. predniSONE (DELTASONE) 10 mg tablet Take 10 mg by mouth once daily. COMPOUNDED PRESCRIPTION [facility] for home BP monitoring COMPOUNDED PRESCRIPTION Oxygen 3 liters Cyanocobalamin (VITAMIN B-12) 1,000 mcg subl Dissolve 1 tablet under the tongue once daily. 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 Upper lobe nodular infiltrates. - Unspecified essential hypertension PAST SURGICAL HISTORY Procedure Laterality Date - INSERTION OF CHEST TUBE 06/19/16 left - LAMINECT W/EXPLOR LUMBAR ST jaylon Hess. - PAST SURGICAL HISTORY OF cervical fusion 2x. - PAST SURGICAL HISTORY OF torn lig. knee, left - PAST SURGICAL HISTORY OF carpel tunnel L side - PAST SURGICAL HISTORY OF ~ brain aneurysms, repaired before rupture. - TOTAL KNEE REPLACEMENT left knee - TRANSURETHRAL ELEC-SURG PROSTATECTOM ~2009 x2. Still symptomatic. 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 Social History Main Topics Smoking status: Former Smoker Packs/day: 1.00 Years: 50.00 Types: Cigarettes Start date: 1964 Quit date: 12/23/2014 Smokeless status: Never Used Alcohol use: Yes Comment: Infrequent beer. 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 Dog. Birds. REVIEW OF SYSTEMS: General: No chills, fever, weight loss, night sweats. Respiratory: No productive cough. Cardiac: As noted above. GI: No melena. : No dysuria. Musculoskeletal: No myalgias. PHYSICAL EXAMINATION: S/he is alert and in no distress. VITAL SIGNS: BP 110/74 Pulse 80 Ht 5' 11 (1.80m) Wt 166 lb 9.6 oz (75.6kg) BMI 23.25 kg/(m2). SHEENT: Skin is warm and dry. No xanthelasmas appreciated. Pharynx is benign. There is no oral cyanosis. Neck: supple. No adenopathy or thyroid enlargement. Chest: Breath sounds are diminished. There are end inspiratory rales. There is no chest wall tenderness. Cardiac: Regular rhythm. S1 and S2 are normal. PMI is laterally displaced. Or as a soft murmur of tricuspid insufficiency. Carotids are brisk without bruits. JVP is less than 10 cm. Abdomen: Soft and nontender. There are no pulsatile masses or bruits. No liver enlargement. Bowel sounds are active. Extremities: Trace edema. Pulses are diminished but symmetrical. No clubbing or cyanosis. No femoral bruits. Neurologic: Grossly normal motor and sensory. S/he is alert and oriented x4. EKG shows sinus rhythm. 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 Diffuse repolarization abnormality is noted. There is no significant change No recent labs are available. Electronically Signed: Jarett Finn MD December 16, 2017 3:43 PM CC:Ishmael Wayne MD Observed: 12/16/2017 Status: F Source: [place] URINE CULTURE 3:15 PM [facility] REPOSITORY Sp. Request/Comment: - Presurgical Sterilization Specimen received in preservative Culture Result - >=100,000 CFU/ml Enterococcus faecalis --> ABNORMAL ALERT Normal Urogenital ramirez: --> ABNORMAL ALERT <1,000 CFU/ml --> ABNORMAL ALERT Coagulase negative Staphylococcus species --> ABNORMAL ALERT ORGANISM: Enterococcus faecalis METHOD: Minimum inhibitory concentration (VIZION) Antibiotic Interp JEANNE Status Ampicillin SUSCEPTIBLE 0.5 F Nitrofurantoin SUSCEPTIBLE <=32 F Vancomycin SUSCEPTIBLE 2 F Performed By: #### URRAYMOND #### [facility] [address] [place], [place] [address] CNOV Observed: 12/16/2017 Status: COMPLETED Source: [place] 2:30 PM [facility] REPOSITORY Office Visit (UROLWS) JIMMY BUTLER ([id number]) 1950 M Date Time Provider Department 12/16/17 2:30 PM MASON DIAZ) UROLWS During your visit today, we recorded the following information about you: Pulse Blood pressure Weight 80/minute 110/74 75.3 kg STEPHAN Gannon 12/16/2017 3:55 PM Signed CC : BPH and Urethral Stricture HPI: Patient here for one year follow-up. With an increase in urinary frequency and U/a with Pyuria He is tollerating Proscar well. He may need urethral dilation in the near future if he starts to have worsening LUTS LAB RESULTS: Results for orders placed or performed in visit on 12/16/17 UA DIP, URINE (POC) Result Value Ref Range GLUCOSE UA (POCT) Negative Neg mg/dL BILIRUBIN UA (POCT) Negative Neg KETONE UA (POCT) Negative Neg mg/dL SPECIFIC GRAVITY UA (POCT) 1.020 1.005 - 1.030 HEMOGLOBIN/BLOOD UA (POCT) Negative Neg PH UA (POCT) 6.0 4.5 - 8 PROTEIN UA (POCT) Negative Neg mg/dL UROBILINOGEN UA (POCT) 0.2 Normal(ANDlt;1.1) E.U./dL NITRITE UA (POCT) Negative Neg LEUKOCYTES UA (POCT) Moderate (A) Neg COLOR UA (POCT) Yellow CLARITY UA (POCT) Clear Urine Culture sent today Physical Exam: PHYSICAL EXAMINATION: Blood pressure 110/74, pulse 80, weight 75.3 kg (166 lb). General appearance: cooperative, pleasant, no acute distress, alert and oriented, well hydrated, well nourished male. IMPRESSION: Encounter Diagnosis ICD-10-CM 1. Dysuria R30.0 UA DIP, URINE (POC) URINE CULTURE PLAN: Office Visit on 12/16/17 -UA DIP, URINE (POC) -URINE CULTURE Continue Proscar 5 mg as before If patient has hematuria or increase in NTF he will make a sooner appointment for flexible cystoscopy Call patient with urine culture results ANDgt; ANDgt; 1 year Appt w/ B. TRISH Diaz MT, PA-C with PSA prior if indicated TRISH Bernal MT, PA-C Referring Provider: SELF [[id number]] Allergies As of Date: 12/16/2017 Noted Allergy Reaction ASA (ASPIRIN) 07/19/2017 8 - GI Upset ASA (SALICYLATES) 01/29/2006 8 - GI Upset Date Reviewed: 12/16/2017 Reviewed by: Judith Mcintsoh Ma - Fully Assessed Reason for Visit: Follow Up [171] Dysuria [1085] Primary Visit Diagnosis:Benign prostatic hyperplasia with urinary frequency [N40.1, R35.0] Other Visit Diagnoses:Dysuria [R30.0] Urethral stricture, unspecified stricture type [N35.9] Order(s):UA DIP, URINE (POC) [7990018] Order #: [id number] #:[id number] URINE CULTURE [SQURCUL] Order #: [id number] PSA/PROSTSPECAG DIAG [SQPSA] Order #: [id number] FUTURE Prescriptions as of 12/16/2017 Sig: ISOSORBIDE MONONITRATE ER 30 * TAKE 1 TABLET BY MOUTH EVERY * HYDRALAZINE 50 MG TABLET Take 1 tablet by mouth three * SPIRONOLACTONE 25 MG TABLET Take 1 tablet by mouth once d* LISINOPRIL 20 MG TABLET Take 1 tablet by mouth once d* MEMANTINE 28 MG CAPSULE SPRIN* Take 1 capsule by mouth once * APIXABAN 5 MG TABLET Take 1 tablet by mouth twice * FUROSEMIDE 20 MG TABLET Take 1 tablet by mouth twice * DIGOXIN 250 MCG TABLET Take 1 tablet by mouth once d* CARVEDILOL 25 MG TABLET Take 1 tablet by mouth twice * BIPAP FINASTERIDE 5 MG TABLET Take 1 tablet by mouth once d* LEVALBUTEROL 0.63 MG/3 ML BIBIANA* Use 3 mL via nebulizer every * BUDESONIDE 0.5 MG/2 ML SUSPEN* POTASSIUM CHLORIDE ER 10 MEQ * Take 1 tablet by mouth daily * NITROGLYCERIN 0.4 MG SUBLINGU* Dissolve 1 tablet under the t* BUDESONIDE 180 MCG/ACTUATION * Inhale 2 Puffs as instructed * PREDNISONE 10 MG TABLET Take 10 mg by mouth once asad* COMPOUNDED PRESCRIPTION [facility] for ho* COMPOUNDED PRESCRIPTION Oxygen 3 liters CYANOCOBALAMIN (VIT B-12) 1,0* Dissolve 1 tablet under the t* Problem List As Of Date 12/16/2017 Noted Resolved Hypertension [I10] INVALID FOR* Lumbar disc disease [M51.9] INVALID FOR* Cervical disc disease [M50.90] INVALID FOR* COPD (chronic obstructive pulmonary disease) [J*INVALID FOR* BPH (benign prostatic hyperplasia) [N40.0] INVALID FOR* Urethral stricture [N35.9] INVALID FOR* Difficulty voiding [R39.198] INVALID FOR* Frequency of urination [R35.0] INVALID FOR* Urinary retention [R33.9] INVALID FOR* Anemia [D64.9] INVALID FOR* Tobacco abuse [Z72.0] INVALID FOR* Nonischemic cardiomyopathy (HCC) [I42.8] INVALID FOR* Atrial fibrillation with rapid ventricular resp*INVALID FOR* AICD (automatic cardioverter/defibrillator) pre*INVALID FOR* Spontaneous pneumothorax [J93.83] INVALID FOR* Swallowing difficulty [R13.10] INVALID FOR* More... Disposition: Return in about 1 year (around 12/16/2018). Follow-up and Disposition History Recorded Encounter Status:Closed by MASON DIAZ PA-C on 12/16/17 CBC Collected: 12/16/2017 Status: F Source: [place] 2:01 PM [facility] RE[facility]ORY TYPE CODE TESTS RESULT OUT OF REFERENCE UNITS RANGE LAB WBC 3.70-11.00 k/uL WBC 4.40 LAB RBC 4.20-6.00 m/uL Low RBC 3.82 LAB HGB 13.0-17.0 g/dL Low Hemoglobin 10.2 LAB HCT 39.0-51.0 % Low Hematocrit 37.0 LAB MCV 80.0-100.0 fL MCV 96.9 LAB MCH 26.0-34.0 pG MCH 26.7 LAB MCHC 30.5-36.0 g/dL Low MCHC 27.6 LAB RDWCV 11.5-15.0 % RDW-CV High 15.5 LAB PLTCT 150-400 k/uL Platelet Count 156 LAB MPV 9.0-12.7 fL MPV 10.1 LAB ABSNUC <0.01 k/uL Absolute nRBC <0.01 Performed By: #### CBC, BMP, LIPB, DIG #### [facility] [address] [place], [place] [address] BASIC METABOLIC PANL Collected: 12/16/2017 Status: F Source: [place] 2:01 PM [facility] REPOSITORY TYPE CODE TESTS RESULT OUT OF REFERENCE UNITS RANGE LAB GLU 74-99 mg/dL High Glucose 114 Result Comment: The [place] Diabetes Association (ADA) provides guidance for cutoff values for fasting glucose and random glucose. The ADA defines fasting as no caloric intake for at least 8 hours. Fas ting plasma glucose results between 100 to 125 mg/dL indicate increased risk for diabetes (prediabetes). Fasting plasma glucose results greater than or equal to 126 mg/dL meet the criteria for diagnosis of diabetes. In the absence of unequivocal hyperglycemia, results should be confirmed by repeat testing. In a patient with classic symptoms of hyperglycemia or hyperglycemic crisis, random plasma glucose results greater than or equal to 200 mg/dL meet the criteria for diagnosis of diabetes. Reference: Standards of Medical Care in Diabetes 2016, [place] Diabetes Association. Diabetes Care. 2016.39(Suppl 1). LAB BUN 9-24 mg/dL BUN 17 LAB CRET 0.73-1.22 mg/dL Creatinine 1.09 LAB NA 136-144 mmol/L Sodium 144 LAB K 3.7-5.1 mmol/L Potassium 4.6 LAB CL 97-105 mmol/L Low Chloride 96 LAB CO2 22-30 mmol/L CO2 High 40 LAB AGAP 9-18 mmol/L Low Anion Gap 8 LAB CA 8.5-10.2 mg/dL Calcium, Total 9.3 LAB GFRAA eGFR- Amer. >60 LAB GFRNAA . eGFR-All Other Races >60 Result Comment: eGFR (Estimated GFR) Units of measure: mL/min/1.73 meters squared eGFR is derived from the reexpressed MDRD Study equation using the following parameters: serum creatinine, age, gender and race. The creatinine assay has been calibrated to be traceable to IDMS. An eGFR <60 mL/min/1.73m2 for >3 months is consistent with chronic kidney disease. Refer to KDOQI guidelines for clinical interpretation. In patients with unstable renal function, e.g. those with acute kidney injury, the eGFR may not accurately reflect actual GFR. Performed By: #### CBC, BMP, LIPB, DIG #### [facility] [address] [place] [id number] LIPID PANEL, BASIC Collected: 12/16/2017 Status: F Source: [place] 2:01 PM [facility] REPOSITORY TYPE CODE TESTS RESULT OUT OF REFERENCE UNITS RANGE LAB CHOL <200 mg/dL Cholesterol 167 Result Comment: <200 mg/dL, Desirable 200-239 mg/dL, Borderline high >239 mg/dL, High LAB TRIGLY <150 mg/dL Triglyceride 84 Result Comment: <150 mg/dL, Normal 150-199 mg/dL, Borderline high 200-499 mg/dL, High >499 mg/dL, Very high LAB HDL >39 mg/dL HDL-Cholesterol 52 Result Comment: 40-59 mg/dL, Acceptable >59 mg/dL, High: Negative risk factor for coronary heart disease <40 mg/dL, Low: Positive risk factor for coronary heart disease LAB LDL <100 mg/dL LDL-Cholesterol 98 Result Comment: <100 mg/dL, Optimal 100-129 mg/dL, Near optimal/above optimal 130-159 mg/dL, Borderline high 160-189 mg/dL, High >189 mg/dL, Very high Secondary prevention optimal LDL Cholesterol levels are recommended to be < 70 mg/dL LAB NONHDL <130 mg/dL Non HDL Cholesterol 115 Result Comment: <130 mg/dL, Optimal 130-159 mg/dL, Near optimal/above optimal 160-189 mg/dL, Borderline high 190-219 mg/dL, High >219 mg/dL, Very high Secondary prevention optimal non HDL Cholesterol levels are recommended to be < 100 mg/dL LAB FT hrs Fasting Time 2 LAB VLDL <30 mg/dL VLDL Cholesterol 17 LAB TCHDL <5.10 TC:HDL Ratio 3.21 LAB LDLHDL <2.54 LDL:HDL Ratio 1.88 Result Comment: Reference: 1. National Cholesterol Education Program ATP III Guideline At-A-Glance Quick Desk Reference: National Heart, Lung, and Blood [place]. National Institutes of Health. 2001: NIH Publication No. 01-3305. 2. An International Atherosclerosis Society position paper: global recommendations for the management of dyslipidemia: executive summary, Atherosclerosis. 2014: 232(2):410-413. Performed By: #### CBC, BMP, LIPB, DIG #### [facility] [address] [place], [place] [address] DIGOXIN Collected: 12/16/2017 Status: F Source: [place] 2:01 PM [facility] REPOSITORY TYPE CODE TESTS RESULT OUT OF REFERENCE UNITS RANGE LAB DIG 0.5-1.0 ng/mL High Digoxin 1.8 Result Comment: Reference ranges and high/low indicator flags are provided as general guidelines only. The treating physician must determine appropriate target levels/dosing based on the specific clinical situation. Performed By: #### CBC, BMP, LIPB, DIG #### [facility] [address] [place], [place] [address] CNOV Observed: 12/16/2017 Status: COMPLETED Source: [place] 1:00 PM [facility] REPOSITORY Office Visit (AGCARDWST) JIMMY BUTLER ([id number]) 1950 M Date Time Provider Department 12/16/17 1:00 PM JARETT FINN During your visit today, we recorded the following information about you: Pulse Blood pressure Weight Height 80/minute 110/74 75.6 kg 1.803 m Jarett Finn MD 12/16/2017 1:35 PM Signed LIFESTYLE CHANGE A healthy lifestyle is the most important component of your overall treatment plan. Please give serious thought to the following areas and commit to making oysterman changes. EAT A WHOLE FOOD, PLANT BASED DIET The nutrition your body gets is more important than the medicine you take. What matters most is the overall way you eat. We encourage you to minimize the use of animal products (which include dairy and all meats except fatty fish) and use whole, unprocessed plant foods to provide your protein, vitamins and other nutrients. We have a lot of information to share with you on this topic. We also hold Shared Medical Appointments, where you can come visit with Dr. Finn in the company of other patients and spend over an hour talking about the challenges of changing the way you eat. This is not a ANDquot;dietANDquot;. It is a way of life that you will keep with you. EXERCISE REGULARLY It is not important to spend hours in the gym, lifting weights and perspiring heavily. A total of 2-3 hours per week of aerobic (causing you to be moderately short of breath) exercise is sufficient to improve your health. Talk to us before you begin a new exercise program, if you have heart disease or experience shortness of breath or chest pain. REDUCE STRESS Chronic emotional and physical stress leads to disease. Ways of reducing stress include meditation, visualization, prayer, yoga and other forms of relaxation therapy. Consistency is the shabazz. Find a technique that works for you and do it every day. CULTIVATE RELATIONSHIPS Loneliness and isolation have a major negative impact on health. Seek out others who can love, care for and nurture you. Avoid hurtful relationships. MAINTAIN IDEAL BODY WEIGHT The best way to do this is to do all the things above. Our bodies naturally find the right weight if we keep moving and feed ourselves the right food. If your BMI is greater than 25, we strongly recommend a referral to a weight management program. Please speak to us or your family physician about available programs. AVOID NICOTINE IN ALL FORMS This includes all tobacco products, whether chewed, smoked, vaped, or rubbed on the skin. Smoking cessation programs, which can make use of tobacco substitutes, medications to suppress cravings and behavior management, are available. Please contact your family physician about programs in your area. Jarett Finn MD 12/16/2017 3:47 PM Signed PERTINENT CARDIAC HISTORY Cardiomyopathy - post viral HTN NSVT - ICD 2014 CHF - systolic Silicosis PAF ADHERENCE TO GUIDELINES ANDREA-I or ARB for HF with prior LVEFANDlt;40 (NQF 0081) - met ASA or Plavix for ASHD (NQF 0067) - N/A Beta kade for ASHD with prior [place] or prior LVEFANDlt;40 (NQF 0070) - N/A Beta kade for HF with prior LVEFANDlt;40 (NQF 0083) - met ANDREA-I or ARB for ASHD with DM or prior LVEFANDlt;40 (NQF 0066) - N/A Statin therapy for ASHD or FHL or DM - N/A BMI documented and plan if ANDgt;25 (NQF 0421) - lifestyle recommendation form Tobacco use screening and referral (NQF 0028) - lifestyle recommendation form Recommendation for whole food, plant based diet - lifestyle recommendation form CLINICAL IMPRESSION/PLAN: Jimmy Butler has stable nonischemic cardiomyopathy. He is well compensated, despite his respiratory disease. There is no evidence of volume overload. His arrhythmia is clinically stable. He's had no recent atrial arrhythmias, although ICD check is currently due. This will be carried out at the [facility]. Blood pressure is running borderline low. He may benefit from a down titration of his hydralazine. I've asked him to call with vital signs in the next few weeks. For monitoring drug therapy, he will undergo lipid profile, BMP, CBC and digoxin level. I will see him in 6 months or as needed. If there is increased chest pain or shortness of breath, I've asked him to contact me. Written and verbal health teaching given to patient, patient verbalizes understanding and agrees with treatment plan. This note was generated using [employer] voice recognition system, and there may be some incorrect words, spellings, and punctuation that were not noted in checking the note before saving. DIAGNOSIS FOR VISIT: Cardiomyopathy Hypertension CHF HISTORY OF PRESENT ILLNESS Jimmy Butler returns for follow-up of multiple cardiac issues, as noted above. His pulmonary disease continues to worsen. He denies chest discomfort. He has had mild edema. He's had no definite orthopnea but is on chronic oxygen therapy and is always short of breath. He has had no recent palpitations. He has received no shocks from his defibrillator. He denies syncope, TIAs, amaurosis or claudication. Blood pressures at home have been consistently greater than 100 systolic. ALLERGIES: ALLERGIES Allergen Reactions - Asa [Aspirin] GI Upset - Asa [Salicylates] GI Upset CURRENT OUTPATIENT MEDICATIONS: isosorbide mononitrate ER (IMDUR) 30 mg 24 hr tablet TAKE 1 TABLET BY MOUTH EVERY DAY hydrALAZINE (APRESOLINE) 50 mg tablet Take 1 tablet by mouth three times daily. spironolactone (ALDACTONE) 25 mg tablet Take 1 tablet by mouth once daily. lisinopril (ZESTRIL, PRINIVIL) 20 mg tablet Take 1 tablet by mouth once daily. memantine XR (NAMENDA XR) 28 mg CSpX Take 1 capsule by mouth once daily. apixaban (ELIQUIS) 5 mg tab tab(s) Take 1 tablet by mouth twice daily. furosemide (LASIX) 20 mg tablet Take 1 tablet by mouth twice daily. digoxin (LANOXIN) 250 mcg tablet Take 1 tablet by mouth once daily. carvedilol (COREG) 25 mg tablet Take 1 tablet by mouth twice daily with meals. BIPAP finasteride (PROSCAR) 5 mg tablet Take 1 tablet by mouth once daily. levalbuterol (XOPENEX) 0.63 mg/3 mL nebulizer solution Use 3 mL via nebulizer every 6 hours as needed for Wheezing/Shortness of Breath (for wheezing). Dx: J44.9 budesonide (PULMICORT) 0.5 mg/2 mL nebulizer solution potassium chloride (K-TAB) 10 mEq tablet Take 1 tablet by mouth daily with breakfast. nitroglycerin sublingual (NITROQUICK) 0.4 mg SL tablet Dissolve 1 tablet under the tongue as needed. FOR CHEST PAIN. IF NO RELIEF CALL 911 budesonide (PULMICORT FLEXHALER) 180 mcg/actuation aepb Inhale 2 Puffs as instructed twice daily. predniSONE (DELTASONE) 10 mg tablet Take 10 mg by mouth once daily. COMPOUNDED PRESCRIPTION [facility] for home BP monitoring COMPOUNDED PRESCRIPTION Oxygen 3 liters Cyanocobalamin (VITAMIN B-12) 1,000 mcg subl Dissolve 1 tablet under the tongue once daily. 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 Upper lobe nodular infiltrates. - Unspecified essential hypertension PAST SURGICAL HISTORY Procedure Laterality Date - INSERTION OF CHEST TUBE 06/19/16 left - LAMINECT W/EXPLOR LUMBAR ST jaylon Hess. - PAST SURGICAL HISTORY OF cervical fusion 2x. - PAST SURGICAL HISTORY OF torn lig. knee, left - PAST SURGICAL HISTORY OF carpel tunnel L side - PAST SURGICAL HISTORY OF ~ brain aneurysms, repaired before rupture. - TOTAL KNEE REPLACEMENT left knee - TRANSURETHRAL ELEC-SURG PROSTATECTOM ~2009 x2. Still symptomatic. 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 Social History Main Topics Smoking status: Former Smoker Packs/day: 1.00 Years: 50.00 Types: Cigarettes Start date: 1964 Quit date: 12/23/2014 Smokeless status: Never Used Alcohol use: Yes Comment: Infrequent beer. 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 Dog. Birds. REVIEW OF SYSTEMS: General: No chills, fever, weight loss, night sweats. Respiratory: No productive cough. Cardiac: As noted above. GI: No melena. : No dysuria. Musculoskeletal: No myalgias. PHYSICAL EXAMINATION: S/he is alert and in no distress. VITAL SIGNS: BP 110/74 Pulse 80 Ht 5' 11ANDquot; (1.80m) Wt 166 lb 9.6 oz (75.6kg) BMI 23.25 kg/(m2). SHEENT: Skin is warm and dry. No xanthelasmas appreciated. Pharynx is benign. There is no oral cyanosis. Neck: supple. No adenopathy or thyroid enlargement. Chest: Breath sounds are diminished. There are end inspiratory rales. There is no chest wall tenderness. Cardiac: Regular rhythm. S1 and S2 are normal. PMI is laterally displaced. Or as a soft murmur of tricuspid insufficiency. Carotids are brisk without bruits. JVP is less than 10 cm. Abdomen: Soft and nontender. There are no pulsatile masses or bruits. No liver enlargement. Bowel sounds are active. Extremities: Trace edema. Pulses are diminished but symmetrical. No clubbing or cyanosis. No femoral bruits. Neurologic: Grossly normal motor and sensory. S/he is alert and oriented x4. EKG shows sinus rhythm. 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 Diffuse repolarization abnormality is noted. There is no significant change No recent labs are available. Electronically Signed: Jarett Finn MD December 16, 2017 3:43 PM CC:Ishmael Wayne MD Referring Provider: JARETT FINN [[id number]] Allergies As of Date: 12/16/2017 Noted Allergy Reaction ASA (ASPIRIN) 07/19/2017 8 - GI Upset ASA (SALICYLATES) 01/29/2006 8 - GI Upset Date Reviewed: 12/16/2017 Reviewed by: Judith Mcintosh Ma - Fully Assessed Reason for Visit: Follow Up [171] Cmt: 6 month Primary Visit Diagnosis:Chronic systolic CHF (congestive heart failure) (HCC) [I50.22] Other Visit Diagnoses:Cardiomyopathy, nonischemic (HCC) [I42.8] PAF (paroxysmal atrial fibrillation) ([facility]) [I48.0] Order(s):ECG B/O W INTERP (MED OFFICE) [ECG06] Order #: [id number] BASIC METABOLIC PNL [SQBMP] Order #: [id number] FUTURE CBC [SQCBC] Order #: [id number] FUTURE DIGOXIN/LANOXIN [SQDIG] Order #: [id number] FUTURE LIPID PANEL BASIC [SQLIPB] Order #: [id number] FUTURE Prescriptions as of 12/16/2017 Sig: ISOSORBIDE MONONITRATE ER 30 * TAKE 1 TABLET BY MOUTH EVERY * HYDRALAZINE 50 MG TABLET Take 1 tablet by mouth three * SPIRONOLACTONE 25 MG TABLET Take 1 tablet by mouth once d* LISINOPRIL 20 MG TABLET Take 1 tablet by mouth once d* MEMANTINE 28 MG CAPSULE SPRIN* Take 1 capsule by mouth once * APIXABAN 5 MG TABLET Take 1 tablet by mouth twice * FUROSEMIDE 20 MG TABLET Take 1 tablet by mouth twice * DIGOXIN 250 MCG TABLET Take 1 tablet by mouth once d* CARVEDILOL 25 MG TABLET Take 1 tablet by mouth twice * BIPAP FINASTERIDE 5 MG TABLET Take 1 tablet by mouth once d* LEVALBUTEROL 0.63 MG/3 ML BIBIANA* Use 3 mL via nebulizer every * BUDESONIDE 0.5 MG/2 ML SUSPEN* POTASSIUM CHLORIDE ER 10 MEQ * Take 1 tablet by mouth daily * NITROGLYCERIN 0.4 MG SUBLINGU* Dissolve 1 tablet under the t* BUDESONIDE 180 MCG/ACTUATION * Inhale 2 Puffs as instructed * PREDNISONE 10 MG TABLET Take 10 mg by mouth once asad* COMPOUNDED PRESCRIPTION [facility] for ho* COMPOUNDED PRESCRIPTION Oxygen 3 liters CYANOCOBALAMIN (VIT B-12) 1,0* Dissolve 1 tablet under the t* Problem List As Of Date 12/16/2017 Noted Resolved Hypertension [I10] INVALID FOR* Lumbar disc disease [M51.9] INVALID FOR* Cervical disc disease [M50.90] INVALID FOR* COPD (chronic obstructive pulmonary disease) [J*INVALID FOR* BPH (benign prostatic hyperplasia) [N40.0] INVALID FOR* Urethral stricture [N35.9] INVALID FOR* Difficulty voiding [R39.198] INVALID FOR* Frequency of urination [R35.0] INVALID FOR* Urinary retention [R33.9] INVALID FOR* Anemia [D64.9] INVALID FOR* Tobacco abuse [Z72.0] INVALID FOR* Nonischemic cardiomyopathy (HCC) [I42.8] INVALID FOR* Atrial fibrillation with rapid ventricular resp*INVALID FOR* AICD (automatic cardioverter/defibrillator) pre*INVALID FOR* Spontaneous pneumothorax [J93.83] INVALID FOR* Swallowing difficulty [R13.10] INVALID FOR* More... Other instructions from your clinician: LIFESTYLE CHANGE A healthy lifestyle is the most important component of your overall treatment plan. Please give serious thought to the following areas and commit to making intermediate changes. EAT A WHOLE FOOD, PLANT BASED DIET The nutrition your body gets is more important than the medicine you take. What matters most is the overall way you eat. We encourage you to minimize the use of animal products (which include dairy and all meats except fatty fish) and use whole, unprocessed plant foods to provide your protein, vitamins and other nutrients. We have a lot of information to share with you on this topic. We also hold Shared Medical Appointments, where you can come visit with Dr. Finn in the company of other patients and spend over an hour talking about the challenges of changing the way you eat. This is not a diet. It is a way of life that you will keep with you. EXERCISE REGULARLY It is not important to spend hours in the gym, lifting weights and perspiring heavily. A total of 2-3 hours per week of aerobic (causing you to be moderately short of breath) exercise is sufficient to improve your health. Talk to us before you begin a new exercise program, if you have heart disease or experience shortness of breath or chest pain. REDUCE STRESS Chronic emotional and physical stress leads to disease. Ways of reducing stress include meditation, visualization, prayer, yoga and other forms of relaxation therapy. Consistency is the shabazz. Find a technique that works for you and do it every day. CULTIVATE RELATIONSHIPS Loneliness and isolation have a major negative impact on health. Seek out others who can love, care for and nurture you. Avoid hurtful relationships. MAINTAIN IDEAL BODY WEIGHT The best way to do this is to do all the things above. Our bodies naturally find the right weight if we keep moving and feed ourselves the right food. If your BMI is greater than 25, we strongly recommend a referral to a weight management program. Please speak to us or your family physician about available programs. AVOID NICOTINE IN ALL FORMS This includes all tobacco products, whether chewed, smoked, vaped, or rubbed on the skin. Smoking cessation programs, which can make use of tobacco substitutes, medications to suppress cravings and behavior management, are available. Please contact your family physician about programs in your area. Classic SmartForms filed during this visit: Extended Vitals Encounter Status:Closed by JARETT FINN MD on 12/16/17 ALLERGIES ALLERGIES DATE TYPE / CODE NAME / CODE REACTION SEVERITY SOURCE 11/19/2018 Drug aspirin/[id number] Upset Stomach Unknown [place] Allergy/416 (RXNORM) Community 048225([facility] ED CT) Repository 07/19/2017 DRUG ASPIRIN GI UPSET [facility] INGREDI/419 Other [place] 013388([facility] Repository ED CT) 01/29/2006 Drug SALICYLATES GI UPSET [facility] Class/86727 Other [place] 1003(SNOMED Repository CT) NG/[id number] ASPIRIN Plain General 6([facility] CT) Repository NG/[id number] SALICYLATES Plain General 6([facility] CT) Repository ENCOUNTERS ENCOUNTERS ADMIT/DISCHARGE ACCOUNT NUMBER ADMITTING ENCOUNTER LOCATION SOURCE CLASS 12/14/2018 [id number] Ambulatory [facility] ding:OLS.WHL Repository TCC 12/09/2018/12/09/19 [id number] Ambulatory [address] Repository 12/09/2018/12/12/19 [id number] Ambulatory [address] Repository 12/09/2018/12/09/19 [id number] Ambulatory [address] Repository 12/07/2018 [id number] Ambulatory [facility] ding:OLS.WHL Repository TCC 11/30/2018 [id number] Ambulatory [facility] ding:OLS.L Repository TCC 11/19/2018/11/27/19 [id number] Agyepong, Inpatient [address] ding:PCURoom Repository : CEK232Icb: 1 11/19/2018 [id number] Agyepong, Ambulatory BMSBuilding: [place] Alpesh BMS.[facility] Repository 11/19/2018 [id number] Agyepong, Ambulatory BMSBuilding: [place] Alpesh BMS.[facility] Repository 11/19/2018 [id number] Agyepong, Ambulatory BMSBuilding: [place] Betts BMS.[facility] Repository 11/19/2018 [id number] Agyepong, Ambulatory BMSBuilding: [place] Alpesh BMS.[facility] Repository 11/19/2018 [id number] Agyepong, Ambulatory BMSBuilding: [place] Alpesh BMS.[facility] Repository 11/19/2018 [id number] Agyepong, Ambulatory BMSBuilding: [place] Alpesh BMS.[facility] Repository 11/19/2018 [id number] Agyepong, Ambulatory BMSBuilding: [place] Alpesh BMS.[facility] Repository 11/19/2018 [id number] Agyepong, Ambulatory BMSBuilding: [place] [facility]esh [facility] 11/19/2018 [id number] Agyepong, Ambulatory BMSBuilding: [place] Alpesh BMS.[facility] Repository 11/19/2018 [id number] Agyepong, Ambulatory BMSBuilding: [place] Alpesh BMS..[facility] Repository 11/19/2018 [id number] Agyepong, Ambulatory BMSBuilding: [place] Betts BMS.[facility] Repository 11/19/2018 [id number] Agyepong, Ambulatory BMSBuilding: [place] Alpesh BMS.CF.[facility] Repository 11/19/2018 [id number] Agyepong, Ambulatory BMSBuilding: [place] Alpesh BMS.[facility] Repository 11/19/2018 [id number] Agyepong, Ambulatory BMSBuilding: [place] Alpesh BMS..[facility] Repository 11/19/2018 [id number] Agyepong, Ambulatory BMSBuilding: [place] Alpesh BMS.[facility] Repository 11/19/2018 [id number] Agyepong, Ambulatory BMSBuilding: [place] Alpesh BMS.[facility] Repository 11/19/2018/11/27/19 [id number] Ambulatory BMSBuilding: [address] Repository 11/19/2018/11/27/19 [id number] Ambulatory BMSBuilding: [address] Repository 11/04/2018/11/04/20 [id number] Ambulatory [address] ding:SDCRoom Repository : AC16 10/31/2018/10/31/20 [id number] Ambulatory [address] Repository 10/25/2018/10/25/20 [id number] Ambulatory [address] Repository 10/21/2018/10/21/20 [id number] Ambulatory [address] Other [place] Repository 10/21/2018/10/21/20 [id number] Ambulatory [address] MEDICAL Repository CENTERBuildi ng:NAHG 10/10/2018 [id number] Ambulatory [facility] ding:RAD Repository 10/05/2018/10/06/20 [id number] Ambulatory [address] [place] Repository 09/30/2018/10/03/20 [id number] Ambulatory [address] Repository 09/27/2018/09/27/20 [id number] Ambulatory BMSBuilding: [place] 18 BMS.[facility] Repository 09/20/2018/09/21/20 [id number] Ambulatory [address] Repository 09/20/2018/09/21/20 [id number] Ambulatory [address] [place] Repository 08/29/2018/08/29/20 [id number] Ambulatory [address] [place] Repository 08/29/2018/08/29/20 [id number] Ambulatory [address] Repository 08/19/2018/08/19/20 [id number] Ambulatory [address] Repository 08/02/2018/08/02/20 [id number] Emergency [place] ding:ED Repository 08/01/2018/08/01/20 [id number] Ambulatory [address] Repository 08/01/2018/08/15/20 [id number] Ambulatory [address] Repository 07/27/2018/07/27/20 [id number] Ambulatory [place] [address] ding:PT Repository 07/19/2018/07/19/20 [id number] Ambulatory [address] Repository 07/08/2018/07/08/20 [id number] Ambulatory [address] Repository 07/08/2018/07/08/20 [id number] Ambulatory [address] Repository 07/06/2018 [id number] Ambulatory [facility] MEDICAL Repository CENTERBuildi ng:CAGWS 07/01/2018/07/01/20 [id number] Emergency [place] ding:ED Repository 06/27/2018/06/27/20 [id number] Ambulatory [address] Repository 06/27/2018/06/27/20 [id number] Ambulatory [address] Repository 06/22/2018 [id number] Ambulatory [facility] ding:RAD Repository 06/16/2018/06/16/20 [id number] Ambulatory [address] Repository 06/16/2018/06/20/20 [id number] Ambulatory [address] Repository 05/20/2018/05/20/20 [id number] Ambulatory [address] Repository 05/19/2018/05/19/20 [id number] Ambulatory [address] Repository 05/19/2018/05/19/20 [id number] Ambulatory [address] Repository 05/18/2018/05/18/20 [id number] Ambulatory [address] Repository 05/12/2018/05/12/20 [id number] Emergency [address] ding:ED Repository 05/10/2018/05/10/20 [id number] Ambulatory BMSBuilding: [place] 18 BMS.[facility] Repository 05/10/2018 [id number] Ambulatory [facility] ding:RAD.FUT Repository URE 05/09/2018/05/10/20 [id number] Ambulatory [address] Repository 05/06/2018 [id number] Ambulatory BMSBuilding: [place] BMS.[facility] Repository 05/06/2018/05/06/20 [id number] Ronni Sotomayor Inpatient [address] ding:PCURoom Repository : YFP137Avm: 1 05/06/2018 [id number] Ronni Sotomayor Ambulatory BMSBuilding: [facility] Repository 05/06/2018 [id number] Ronni Sotomayor Ambulatory BMSBuilding: [place] BMS.CF.[facility] Repository 05/02/2018/05/04/20 [id number] Ambulatory BMSBuilding: [place] 18 [facility] Repository 05/01/2018/05/04/20 [id number] White, Anni Inpatient [address] ding:PCURoom Repository : [id number]: 1 05/01/2018 [id number] White, Anni Ambulatory BMSBuilding: [place] [facility] Repository 05/01/2018 [id number] White, Anni Ambulatory BMSBuilding: [place] BMS.CF.[facility] Repository 05/01/2018 [id number] White, Anni [facility] 05/01/2018 [id number] White, Anni Ambulatory BMSBuilding: [place] BMS.CF.[facility] Repository 05/01/2018 [id number] White, Anni Ambulatory BMSBuilding: [place] BMS.[facility] Repository 05/01/2018 [id number] White, Anni Ambulatory BMSBuilding: [facility] Repository 05/01/2018 [id number] White, Anni Ambulatory BMSBuilding: [place] BMS.CF.[facility] Repository 05/01/2018 [id number] White, Anni Ambulatory BMSBuilding: [place] BMS.[facility] Repository 05/01/2018/05/04/20 [id number] Ambulatory BMSBuilding: [address] Repository 05/01/2018/05/04/20 [id number] Ambulatory BMSBuilding: [place] 18 [facility] Repository 04/26/2018/04/26/20 [id number] Ambulatory [address] Repository 04/26/2018/04/26/20 [id number] Ambulatory [address] Repository 04/26/2018/04/26/20 [id number] Ambulatory [address] Repository 04/08/2018/04/11/20 [id number] Ambulatory [address] Repository 03/30/2018/03/31/20 [id number] Ambulatory [address] Repository 03/15/2018/03/15/20 [id number] Ambulatory [address] Repository 03/02/2018/03/02/20 [id number] Ambulatory BMSBuilding: [place] 18 BMS.[facility] Repository 02/17/2018 [id number] Ambulatory [facility] Repository 01/28/2018 [id number] Ambulatory [facility] ding:CCN Repository 01/24/2018/01/28/20 [id number] Ambulatory [address] Repository 01/06/2018/01/06/20 [id number] Ambulatory [address] Repository 01/02/2018 [id number] Ambulatory [facility] ding:[place] Repository 12/27/2017/02/05 [id number] Ambulatory [address] Main [place] Repository 12/16/2017/12/17/19 [id number] Ambulatory [address] [place] Repository 12/16/2017/12/16/19 [id number] Ambulatory [address] [place] Repository 12/16/2017/12/16/19 [id number] Ambulatory [address] Other [place] Repository 12/16/2017/12/16/19 [id number] Ambulatory [address] MEDICAL Repository CENTERBuildi ng:CAGWS 12/15/2017/12/22/19 [id number] Ambulatory [place] [address] [place] [address] ding:[place] Repository PAYERS PAYERS ENCOUNTER GUARANTOR PAYER SUBSCRIBER SOURCE 12/14/2018 JIMMY FAGAN Primary Insurance:SELF NOT GIVENUNK [place] [address] PAY [address]ANCE[address] Number: Effective Hospital [id number]: (330) Date:2018-12-14 Repository [phone] () 12/07/2018 JIMMY FAGAN Primary Insurance:SELF NOT GIVENUNK [place] [address] PA[address] Number: Effective Hospital [id number]: (330) Date:2018-12-07 Repository [phone] (HP) 11/30/2018 JIMMY FAGAN Primary Insurance:SELF NOT GIVENUNK [place] [address] PAY [address] Number: Effective Hospital [id number]: (330) Date:2018-11-30 Repository [phone] (HP) 11/19/2018 JIMMY FAGAN Primary JIMMY BUTLERDOB: [place] [address] Insurance:MEDICARE [id number] PART A BPolicy Number: Hospital [id number]: (130) [id number] Repository [phone] (HP) Date:2018-11-19 11/19/2018 Secondary JIMMY BUTLERDOB: [place] Insurance:AARPPolicy [id number] Community Number: Hospital [id number] Repository Date:0200-46-46BA [address], [place] [address]IR: 11/19/2018 Tertiary NOT GIVENUNK [place] Insurance:SELF PAY Community [facility] Number: Effective Repository Date:2018-11-19 11/19/2018 JIMMY FAGAN Primary JIMMY BUTLERDOB: [place] [address] Insurance:MEDICARE [id number] [address] PART A BPolicy Number: Hospital [id number]: ([phone] [id number] Repository [phone] () Date:2018-11-19 11/19/2018 Secondary JIMMY BUTLERDOB: [place] Insurance:AARPPolicy [id number] Community Number: Hospital [id number] Repository Date:3630-24-39BW [facility] 767208[place], [place] [address]OU: 11/19/2018 Tertiary NOT GIVENUNK [place] Insurance:SELF PAY Community [facility] Number: Effective Repository Date:2018-11-19 11/19/2018 JIMMY BUTLER228 Primary JIMMY BUTLERDOB: [place] [address] Insurance:MEDICARE [id number] [address] PART A BPolicy Number: Hospital [id number]: 330 [id number] Repository [phone] () Date:2018-11-19 11/19/2018 Secondary JIMMY BUTLERDOB: [place] Insurance:AARPPolicy [id number] Community Number: Hospital [id number] Repository Date:0993-98-74IS [facility] [place]74[place], [place] [address]FQ: 11/19/2018 Tertiary NOT GIVENUNK [place] Insurance:SELF PAY Community [facility] Number: Effective Repository Date:2018-11-19 11/19/2018 JIMMY BUTLER228 Primary JIMMY BUTLERDOB: [place] [address] Insurance:MEDICARE [id number] [address] PART A BPolicy Number: Hospital [id number]: ([phone] [id number] Repository [phone] (HP) Date:2018-11-19 11/19/2018 Secondary JIMMYMI BUTLERDOB: [place] Insurance:AARPPolicy [id number] Community Number: Hospital [id number] Repository Date:9186-58-36QK [facility] 883261[place], [place] [address]MI: 11/19/2018 Tertiary NOT GIVENUNK [place] Insurance:SELF PAY Community [facility] Number: Effective Repository Date:2018-11-19 11/19/2018 JIMMY BUTLER228 Primary JIMMY BUTLERDOB: [place] [address] Insurance:MEDICARE [id number] [address] PART A BPolicy Number: Hospital [id number]: (071) [id number] Repository [phone] () Date:2018-11-19 11/19/2018 Secondary JIMMY BUTLERDOB: [place] Insurance:AARPPolicy [id number] Community Number: Hospital [id number] Repository Date:7553-99-72TH [facility] [place]90[place]G, [place] [address]KC: 11/19/2018 Tertiary NOT GIVENUNK [place] Insurance:SELF PAY Community [facility] Number: Effective Repository Date:2018-11-19 11/19/2018 JIMMY BUTLER228 Primary JIMMY BUTLERDOB: [place] [address] Insurance:MEDICARE [id number] [address] PART A BPolicy Number: Hospital [id number]: 330 [id number] Repository [phone] () Date:2018-11-19 11/19/2018 Secondary JIMMY BUTLERDOB: [place] Insurance:AARPPolicy [id number] Community Number: Hospital [id number] Repository Date:6446-99-87RZ [address]EJRVDHH, [place] [address]GJ: 11/19/2018 Tertiary NOT GIVENUNK [place] Insurance:SELF PAY Community [facility] Number: Effective Repository Date:2018-11-19 11/19/2018 JIMMY BUTLER228 Primary JIMMY HALLDOB: [place] [address] Insurance:MEDICARE [id number] [address] PART A BPolicy Number: Hospital [id number]: 330 [id number] Repository [phone] () Date:2018-11-19 11/19/2018 Secondary JIMMY BUTLERDOB: [place] Insurance:AARPPolicy [id number] Community Number: Hospital [id number] Repository Date:2465-15-24ND [facility] [id number], [place] [address]QV: 11/19/2018 Tertiary NOT GIVENUNK [place] Insurance:SELF PAY Community [facility] Number: Effective Repository Date:2018-11-19 11/19/2018 JIMMY FAGAN Primary JIMMY BUTLERDOB: [place] [address] Insurance:MEDICARE [id number] [address] PART A BPolicy Number: Hospital [id number]: 330 [id number] Repository [phone] () Date:2018-11-19 11/19/2018 Secondary JIMMY BUTLERDOB: [place] Insurance:AARPPolicy [id number] Community Number: Hospital [id number] Repository Date:6241-53-93LN [facility] 238175EYM[place]VJ, [place] [address]ZT: 11/19/2018 Tertiary NOT GIVENUNK [place] Insurance:SELF PAY [facility] Effective Repository Date:2018-11-19 11/19/2018 JIMMY BUTLER228 Primary JIMMY BUTLERDOB: [place] [address] Insurance:MEDICARE [id number] [address] PART A BPolicy Number: Hospital [address]Nsw: 330 [id number] Repository [phone] () Date:2018-11-19 11/19/2018 Secondary JIMMY BUTLERDOB: [place] Insurance:AARPPolicy [id number] Community Number: Hospital [id number] Repository Date:6037-08-62VJ [facility] 814071GS[place]UHF, [place] [address]KU: 11/19/2018 Tertiary NOT GIVENUNK [place] Insurance:SELF PAY [facility]: Effective Repository Date:2018-11-19 11/19/2018 JIMMY FAGAN Primary JIMMY BUTLERDOB: [place] [address] Insurance:MEDICARE [id number] [address] PART A BPolicy Number: Hospital [id number]: (330 [id number] Repository [phone] () Date:2018-11-19 11/19/2018 Secondary JIMMY BUTLERDOB: [place] Insurance:AARPPolicy [id number] Community Number: Hospital [id number] Repository Date:2165-87-48VS [facility] 813173FDOCSGO, [place] [address]PW: 11/19/2018 Tertiary NOT GIVENUNK [place] Insurance:SELF PAY Community [facility] Number: Effective Repository Date:2018-11-19 11/19/2018 JIMMY FAGAN Primary JIMMY BUTLERDOB: [place] [address] Insurance:MEDICARE [id number] [address] PART A BPolicy Number: Hospital [id number]: (330 [id number] Repository [phone] (HP) Date:2018-11-19 11/19/2018 Secondary JIMMY BUTLERDOB: [place] Insurance:AARPPolicy [id number] Community Number: Hospital [id number] Repository Date:9818-90-23LH [facility] [id number], [place] [address]TM: 11/19/2018 Tertiary NOT GIVENUNK [place] Insurance:SELF PAY [facility]: Effective Repository Date:2018-11-19 11/19/2018 JIMMY BUTLER228 Primary JIMMY BUTLERDOB: [place] [address] Insurance:MEDICARE [id number] [address] PART A BPolicy Number: Hospital [address]Rso: 330 [id number] Repository [phone] (HP) Date:2018-11-19 11/19/2018 Secondary JIMMY HALLDOB: [place] Insurance:AARPPolicy [id number] Community Number: Hospital [id number] Repository Date:7805-78-75YE [address]JTKOSO, [place] [address]HY: 11/19/2018 Tertiary NOT GIVENUNK [place] Insurance:SELF PAY Community [facility] Number: Effective Repository Date:2018-11-19 11/19/2018 JIMMY BUTLER228 Primary JIMMY BUTLERDOB: [place] [address] Insurance:MEDICARE [id number] [address] PART A BPolicy Number: Hospital [id number]: (823) [id number] Repository [phone] () Date:2018-11-19 11/19/2018 Secondary JIMMY BUTLERDOB: [place] Insurance:AARPPolicy [id number] Community Number: Hospital [id number] Repository Date:2298-96-47QE [facility] [id number], [place] [address]OJ: 11/19/2018 Tertiary NOT GIVENUNK [place] Insurance:SELF PAY Community [facility] Number: Effective Repository Date:2018-11-19 11/19/2018 JIMMY BUTLER228 Primary JIMMY BUTLERDOB: [place] [address] Insurance:MEDICARE [id number] [address] PART A BPolicy Number: Hospital [id number]: 330 [id number] Repository [phone] () Date:2018-11-19 11/19/2018 Secondary JIMMY BUTLERDOB: [place] Insurance:AARPPolicy [id number] Community Number: Hospital [id number] Repository Date:2117-84-31VU [facility] [id number], [place] [address]ZO: 11/19/2018 Tertiary NOT GIVENUNK [place] Insurance:SELF PAY Community [facility] Number: Effective Repository Date:2018-11-19 11/19/2018 JIMMY BUTLER228 Primary JIMMY BUTLERDOB: [place] [address] Insurance:MEDICARE [id number] [address] PART A BPolicy Number: Hospital [id number]: (151) [id number] Repository [phone] (HP) Date:2018-11-19 11/19/2018 Secondary JIMMYMI BUTLERDOB: [place] Insurance:AARPPolicy [id number] Community Number: Hospital [id number] Repository Date:1559-84-03JB [address]FG[place]MAM, [place] [address]OM: 11/19/2018 Tertiary NOT GIVENUNK [place] Insurance:SELF PAY Community [facility] Number: Effective Repository Date:2018-11-19 11/19/2018 JIMMY FAGAN Primary JIMMY BUTLERDOB: [place] [address] Insurance:MEDICARE [id number] [address] PART A BPolicy Number: Hospital [id number]: 330 [id number] Repository [phone] () Date:2018-11-19 11/19/2018 Secondary JIMMY BUTLERDOB: [place] Insurance:AARPPolicy [id number] Community Number: Hospital [id number] Repository Date:3702-71-34EY [address]COW, [place] [address]HW: 11/19/2018 Tertiary NOT GIVENUNK [place] Insurance:SELF PAY Community [facility] Number: Effective Repository Date:2018-11-19 11/19/2018 JIMMY BUTLER228 Primary JIMMY BUTLERDOB: [place] [address] Insurance:MEDICARE [id number] [address] PART A BPolicy Number: Hospital [id number]: 330 [id number] Repository [phone] () Date:2018-11-19 11/19/2018 Secondary JIMMY BUTLERDOB: [place] Insurance:AARPPolicy [id number] Community Number: Hospital [id number] Repository Date:0454-23-91QN [address]CBPEHZ, [place] [address]JS: 11/19/2018 Tertiary NOT GIVENUNK [place] Insurance:SELF PAY Community [facility] Hospital Number: Effective Repository Date:2018-11-19 11/19/2018 JIMMY BUTLER228 Primary JIMMY BUTLERDOB: [place] [address] Insurance:MEDICARE [id number] PART A BPolicy Number: Hospital [address]Jvp: 330 [id number] Repository [phone] () Date:2018-11-19 11/19/2018 Secondary JIMMY BUTLERDOB: [place] Insurance:AARPPolicy [id number] Community Number: Hospital [id number] Repository Date:8083-82-97OL [address]GFBZUMQ, [place] [address]YC: 11/19/2018 Tertiary NOT GIVENUNK [place] Insurance:SELF PAY Community [facility] Number: Effective Repository Date:2018-11-19 11/19/2018 JIMMY BUTLER228 Primary JIMMY BUTLERDOB: [place] [address] Insurance:MEDICARE [id number] PART A BPolicy Number: Hospital [id number]: 330 [id number] Repository [phone] () Date:2018-11-19 11/19/2018 Secondary JIMMY BUTLERDOB: [place] Insurance:AARPPolicy [id number] Community Number: Hospital [id number] Repository Date:3778-41-62HQ [address]RVTFHDM, [place] [address]TI: 11/19/2018 Tertiary NOT GIVENUNK [place] Insurance:SELF PAY Community [facility] Number: Effective Repository Date:2018-11-19 11/04/2018 JIMMY BUTLER228 Primary JIMMY BUTLERDOB: [place] [address] Insurance:MEDICARE [id number] [address] PART A BPolicy Number: Hospital [id number]: 330 [id number] Repository [phone] () Date:2018-10-28 11/04/2018 Secondary JIMMY BUTLERDOB: [place] Insurance:AARPPolicy [id number] Community Number: Hospital [id number] Repository Date:4116-17-92VP [facility] 461862XEPCJMW, [place] [address]YK: 11/04/2018 Tertiary NOT GIVENUNK [place] Insurance:SELF PAY Community INSURANCEPolicy Hospital Number: Effective Repository Date:2018-10-28 10/21/2018 JIMMY HALLDOB: Primary JIMMY HALLDOB: [place] Insurance:MEDICARE A [id number] B[facility] Number: Repository STUNIT [id number] [address] [place] [address] Date: 73927Mzx: () 10/21/2018 Secondary JIMMYMI BUTLERDOB: [place] Insurance:[facility] AARP [id number] SU[facility] Rep[facility] Number: [id number] Date: 10/10/2018 JIMMY BUTLER228 Primary JIMMYMI BUTLERDOB: [place] [address] Insurance:MEDICARE [id number] PART A BPolicy Number: Hospital [id number]: (658) [id number] Repository [phone] (HP) Date:2018-10-10 10/10/2018 Secondary JIMMYMI BUTLERDOB: [place] Insurance:AARPPolicy [id number] Community Number: Hospital [id number] Repository Date:4707-76-39CL [address]XVUBTZK, [place] [address]NK: 10/10/2018 Tertiary NOT GIVENUNK [place] Insurance:SELF PAY Community [facility] Number: Effective Repository Date:2018-10-10 09/27/2018 JIMMY BUTLER228 Primary JIMMYMI BUTLERDOB: [place] [address] Insurance:MEDICARE [id number] PART A BPolicy Number: Hospital [id number]: (881) [id number] Repository [phone] (HP) Date:2018-03-02 09/27/2018 Secondary JIMMYMI BUTLERDOB: [place] Insurance:AARPPolicy [id number] Community Number: Hospital [id number] Repository Date:9870-61-01AE [facility] 101097PVBOJKZ, [place] [address]HD: 09/27/2018 Tertiary NOT GIVENUNK [place] Insurance:SELF PAY Community [facility] Number: Effective Repository Date:2018-05-31 08/02/2018 JIMMY BUTLER228 Primary JIMMY HALLDOB: [place] [address] Insurance:MEDICARE [id number] PART A BPolicy Number: Hospital [id number]: ([phone]) [id number] Repository [phone] () Date:2018-08-02 08/02/2018 Secondary JIMMY HALLDOB: [place] Insurance:AARPPolicy [id number] Community Number: Hospital [id number] Repository Date:6991-21-79RH [address]DVMGIPS, [place] [address]RD: 08/02/2018 Tertiary NOT GIVENUNK [place] Insurance:SELF PAY [facility] Effective Repository Date:2018-08-02 07/27/2018 JIMMY BUTLER228 Primary JIMMY HALLDOB: [place] [address] Insurance:MEDICARE [id number] PART A BPolicy Number: Hospital [id number]: 330 [id number] Repository [phone] () Date:2013-05-22 07/27/2018 Secondary JIMMY BUTLERDOB: [place] Insurance:AARPPolicy [id number] Community Number: Hospital [id number] Repository Date:0392-51-09YY [address]FMFVPFK, [place] [address]OJ: 07/27/2018 Tertiary NOT GIVENUNK [place] Insurance:SELF PAY Community [facility]: Effective Repository Date:2018-06-23 07/06/2018 JIMMY HALLDOB: Primary JIMMY HALLDOB: [place] Insurance:MEDICARE A [id number] BPolicy Number: Repository [facility] [id number] [address] [place] [address] Date: 72083Jqt: () 07/06/2018 Secondary JIMMY HALLDOB: [place] Insurance:[facility] [id number] SUPPLEMENTPolicy Repository Number: [id number] Date: 07/01/2018 JIMMY FAGAN Primary JIMMY BUTLERDOB: [place] [address] Insurance:MEDICARE [id number] [address] PART A BPolicy Number: Hospital [id number]: 330 [id number] Repository [phone] () Date:2018-07-01 07/01/2018 Secondary JIMMY BUTLERDOB: [place] Insurance:AARPPolicy [id number] Community Number: Hospital [id number] Repository Date:0637-71-31KY [facility] 956[address], [place] [address]PC: 07/01/2018 Tertiary NOT GIVENUNK [place] Insurance:SELF PAY Community [facility] Number: Effective Repository Date:2018-07-01 06/22/2018 JIMMY FAGAN Primary JIMMY BUTLERDOB: [place] [address] Insurance:MEDICARE [id number] [address] PART A BPolicy Number: Hospital [id number]: 330 [id number] Repository [phone] () Date:2018-06-22 06/22/2018 Secondary JIMMY BUTLERDOB: [place] Insurance:AARPPolicy [id number] Community Number: Hospital [id number] Repository Date:6767-96-52LQ [facility] 132918YNADXSS, [place] [address]ZW: 06/22/2018 Tertiary NOT GIVENUNK [place] Insurance:SELF PAY Community [facility] Number: Effective Repository Date:2018-06-22 05/12/2018 JIMMY BUTLER228 Primary JIMMY BUTLERDOB: [place] [address] Insurance:MEDICARE [id number] [address] PART A BPolicy Number: Hospital [id number]: 330 [id number] Repository [phone] (HP) Date:2018-05-12 05/12/2018 Secondary JIMMY BUTLERDOB: [place] Insurance:AARPPolicy [id number] Community Number: Hospital [id number] Repository Date:7499-18-04XW [address], [place] [address]OV: 05/12/2018 Tertiary NOT GIVENUNK [place] Insurance:SELF PAY Community [facility] Number: Effective Repository Date:2018-05-12 05/10/2018 JIMMY BUTLER228 Primary JIMMY BUTLERDOB: [place] [address] Insurance:MEDICARE [id number] [address] PART A BPolicy Number: Hospital [id number]: 330 [id number] Repository [phone] () Date:2018-05-06 05/10/2018 Secondary JIMMY BUTLERDOB: [place] Insurance:AARPPolicy [id number] Community Number: Hospital [id number] Repository Date:0273-43-17IZ [address]HJXETDS, [place] [address]UI: 05/10/2018 Tertiary NOT GIVENUNK [place] Insurance:SELF PAY Community [facility] Number: Effective Repository Date:2018-05-09 05/10/2018 JIMMY BUTLER228 Primary JIMMY BUTLERDOB: [place] [address] Insurance:MEDICARE [id number] [address] PART A BPolicy Number: Hospital [id number]: 330 [id number] Repository [phone] () Date:2018-05-09 05/10/2018 Secondary JIMMY BUTLERDOB: [place] Insurance:AARPPolicy [id number] Community Number: Hospital [id number] Repository Date:0670-47-12KJ [facility] 279453KPRYVXL, [place] [address]KX: 05/10/2018 Tertiary NOT GIVENUNK [place] Insurance:SELF PAY Community [facility] Number: Effective Repository Date:2018-05-09 05/06/2018 JIMMY BUTLER228 Primary JIMMY BUTLERDOB: [place] [address] Insurance:MEDICARE [id number] [address] PART A BPolicy Number: Hospital [id number]: 330 [id number] Repository [phone] (HP) Date:2018-05-05 05/06/2018 Secondary JIMMY BUTLERDOB: [place] Insurance:AARPPolicy [id number] Community Number: Hospital [id number] Repository Date:9639-51-23HV [address], [place] [address]YR: 05/06/2018 Tertiary NOT GIVENUNK [place] Insurance:SELF PAY Community [facility] Number: Effective Repository Date:2018-05-06 05/06/2018 JIMMY FAGAN Primary JIMMY BUTLERDOB: [place] [address] Insurance:MEDICARE [id number] [address] PART A BPolicy Number: Hospital [id number]: 330 [id number] Repository [phone] () Date:2018-05-05 05/06/2018 Secondary JIMMY BUTLERDOB: [place] Insurance:AARPPolicy [id number] Community Number: Hospital [id number] Repository Date:1795-84-32NB [address]RFKNZXU, [place] [address]AU: 05/06/2018 Tertiary NOT GIVENUNK [place] Insurance:SELF PAY Community [facility] Number: Effective Repository Date:2018-05-05 05/06/2018 JIMMY BUTLER228 Primary JIMMY BUTLERDOB: [place] [address] Insurance:MEDICARE [id number] [address] PART A BPolicy Number: Hospital [id number]: 330 [id number] Repository [phone] () Date:2018-05-05 05/06/2018 Secondary JIMMY BUTLERDOB: [place] Insurance:AARPPolicy [id number] Community Number: [facility] [id number] Repository Date:6414-89-44CT [address]EGAMVNM, [place] [address]BF: 05/06/2018 Tertiary NOT GIVENUNK [place] Insurance:SELF PAY Community [facility] Number: Effective Repository Date:2018-05-06 05/06/2018 JIMMY UBTLER228 Primary JIMMY BUTLERDOB: [place] [address] Insurance:MEDICARE [id number] [address] PART A BPolicy Number: Hospital [id number]: 330 [id number] Repository [phone] () Date:2018-05-05 05/06/2018 Secondary JIMMY BUTLERDOB: [place] Insurance:AARPPolicy [id number] Community Number: Hospital [id number] Repository Date:7168-18-21QM [address]ZZWULG, [place] [address]JH: 05/06/2018 Tertiary NOT GIVENUNK [place] Insurance:SELF PAY Community [facility] Number: Effective Repository Date:2018-05-06 05/02/2018 JIMMY BUTLER228 Primary JIMMY BUTLERDOB: [place] [address] Insurance:MEDICARE [id number] [address] PART A BPolicy Number: Hospital 15112Ezl: 330 [id number] Repository [phone] () Date:2018-05-01 05/02/2018 Secondary JIMMYMI BUTLERDOB: [place] Insurance:AARPPolicy [id number] Community Number: Hospital [id number] Repository Date:7112-47-65VS [address]GXYIVCV, [place] [address]JV: 05/02/2018 Tertiary NOT GIVENUNK [place] Insurance:SELF PAY Community [facility] Number: Effective Repository Date:2018-05-02 05/01/2018 JIMMY BUTLER228 Primary JIMMY BUTLERDOB: [place] [address] Insurance:MEDICARE [id number] [address] PART A BPolicy Number: Hospital [id number]: 330 [id number] Repository [phone] () Date:2018-05-01 05/01/2018 Secondary JIMMYMI BUTLERDOB: [place] Insurance:AARPPolicy [id number] Community Number: Hospital [id number] Repository Date:9121-61-26DS [address], [place] [address]BE: 05/01/2018 Tertiary NOT GIVENUNK [place] Insurance:SELF PAY Community [facility] Number: Effective Repository Date:2018-05-01 05/01/2018 JIMMY BUTLER228 Primary JIMMY BUTLERDOB: [place] [address] Insurance:MEDICARE [id number] [address] PART A BPolicy Number: Hospital [id number]: 330 [id number] Repository [phone] () Date:2018-05-01 05/01/2018 Secondary JIMMY BUTLERDOB: [place] Insurance:AARPPolicy [id number] Community Number: Hospital [id number] Repository Date:2624-77-73BH [facility] 887268[place]ZAX[place], [place] [address]HQ: 05/01/2018 Tertiary NOT GIVENUNK [place] Insurance:SELF PAY Community [facility] Number: Effective Repository Date:2018-05-01 05/01/2018 JIMMY BUTLER228 Primary JIMMY BUTLERDOB: [place] [address] Insurance:MEDICARE [id number] [address] PART A BPolicy Number: Hospital [id number]: 330 [id number] Repository [phone] () Date:2018-05-01 05/01/2018 Secondary JIMMY BUTLERDOB: [place] Insurance:AARPPolicy [id number] Community Number: Hospital [id number] Repository Date:5521-49-59DZ [facility] 087708DQSJZMP, [place] [address]YN: 05/01/2018 Tertiary NOT GIVENUNK [place] Insurance:SELF PAY Community [facility] Number: Effective Repository Date:2018-05-01 05/01/2018 JIMMY BUTLER228 Primary JIMMY BUTLERDOB: [place] [address] Insurance:MEDICARE [id number] [address] PART A BPolicy Number: Hospital [id number]: (321) [id number] Repository [phone] (HP) Date:2018-05-01 05/01/2018 Secondary JIMMY BUTLERDOB: [place] Insurance:AARPPolicy [id number] Community Number: Hospital [id number] Repository Date:1366-24-48GJ [address]MRCSBXD, [place] [address]MJ: 05/01/2018 Tertiary NOT GIVENUNK [place] Insurance:SELF PAY Community [facility] Number: Effective Repository Date:2018-05-01 05/01/2018 JIMMY BUTLER228 Primary JIM[place] BUTLERDOB: [place] [address] Insurance:MEDICARE [id number] PART A BPolicy Number: Hospital [id number]: 330 [id number] Repository [phone] () Date:2018-05-01 05/01/2018 Secondary JIMMY BUTLERDOB: [place] Insurance:AARPPolicy [id number] Community Number: [facility] [id number] Repository Date:4383-58-63GT [address]BKEVBXQ, [place] [address]QN: 05/01/2018 Tertiary NOT GIVENUNK [place] Insurance:SELF PAY Community [facility] Number: Effective Repository Date:2018-05-01 05/01/2018 JIMMY BUTLER228 Primary JIMMY BUTLERDOB: [place] [address] Insurance:MEDICARE [id number] PART A BPolicy Number: Hospital [id number]: 330 [id number] Repository [phone] () Date:2018-05-01 05/01/2018 Secondary JIMMY BUTLERDOB: [place] Insurance:AARPPolicy [id number] Community Number: Hospital [id number] Repository Date:5262-10-76WG [facility] 032378MTFKQPC, [place] [address]VI: 05/01/2018 Tertiary NOT GIVENUNK [place] Insurance:SELF PAY Community [facility] Number: Effective Repository Date:2018-05-01 05/01/2018 JIMMY BUTLER228 Primary JIMMY BUTLERDOB: [place] [address] Insurance:MEDICARE [id number] PART A BPolicy Number: Hospital 35858Hei: (253) [id number] Repository [phone] () Date:2018-05-01 05/01/2018 Secondary JIMMY BUTLERDOB: [place] Insurance:AARPPolicy [id number] Community Number: Hospital [id number] Repository Date:6052-51-65ZI [address]KVWIQYN, [place] [address]WX: 05/01/2018 Tertiary NOT GIVENUNK [place] Insurance:SELF PAY Community [facility] Number: Effective Repository Date:2018-05-01 05/01/2018 JIMMY BUTLER228 Primary JIMMY BUTLERDOB: [place] [address] Insurance:MEDICARE [id number] [address] PART A BPolicy Number: Hospital [id number]: 330 [id number] Repository [phone] () Date:2018-05-01 05/01/2018 Secondary JIMMY BUTLERDOB: [place] Insurance:AARPPolicy [id number] Community Number: Hospital [id number] Repository Date:9511-07-04OW [address]RXSK, [place] [address]WA: 05/01/2018 Tertiary NOT GIVENUNK [place] Insurance:SELF PAY Community [facility] Number: Effective Repository Date:2018-05-01 05/01/2018 JIMMY BUTLER228 Primary JIMMY BUTLERDOB: [place] [address] Insurance:MEDICARE [id number] [address] PART A BPolicy Number: Hospital 66084Xcy: 330 [id number] Repository [phone] () Date:2018-05-01 05/01/2018 Secondary JIMMY BUTLERDOB: [place] Insurance:AARPPolicy [id number] Community Number: Hospital [id number] Repository Date:4227-08-74TY [address]VDBVUGS, [place] [address]WE: 05/01/2018 Tertiary NOT GIVENUNK [place] Insurance:SELF PAY Community [facility] Number: Effective Repository Date:2018-05-01 05/01/2018 JIMMY BUTLER228 Primary JIM[place] BUTLERDOB: [place] [address] Insurance:MEDICARE [id number] [address] PART A BPolicy Number: Hospital [id number]: 330 [id number] Repository [phone] () Date:2018-05-01 05/01/2018 Secondary JIMMY BUTLERDOB: [place] Insurance:AARPPolicy [id number] Community Number: Hospital [id number] Repository Date:2424-65-23QF [facility] 657608LTMRQSJ, [place] [address]VJ: 05/01/2018 Tertiary NOT GIVENUNK [place] Insurance:SELF PAY Community [facility] Number: Effective Repository Date:2018-05-01 05/01/2018 JIMMY BUTLER228 Primary JIMMY BUTLERDOB: [place] [address] Insurance:MEDICARE [id number] [address] PART A BPolicy Number: Hospital 60204Iqq: 330 [id number] Repository [phone] () Date:2018-05-01 05/01/2018 Secondary JIMMY BUTLERDOB: [place] Insurance:AARPPolicy [id number] Community Number: Hospital [id number] Repository Date:9586-33-52NG [facility] 084497[place], [place] [address]DU: 05/01/2018 Tertiary NOT GIVENUNK [place] Insurance:SELF PAY Community [facility] Number: Effective Repository Date:2018-05-01 03/02/2018 JIMMY BUTLER228 Primary JIMMY BUTLERDOB: [place] [address] Insurance:MEDICARE [id number] [address] PART A BPolicy Number: Hospital [id number]: 330 [id number] Repository [phone] () Date:2017-11-17 03/02/2018 Secondary JIMMY BUTLERDOB: [place] Insurance:AARPPolicy [id number] Community Number: Hospital [id number] Repository Date:9206-84-58NO [facility] 182894DWMJZDH, [place] [address]RO: 03/02/2018 Tertiary NOT GIVENUNK [place] Insurance:SELF PAY Community [facility] Number: Effective Repository Date:2018-02-25 01/28/2018 JIMMY BUTLER228 Primary JIMMY BUTLERDOB: [place] [address] Insurance:MEDICARE [id number] PART A BPolicy Number: Hospital 61570Bjl: (745) [id number] Repository [phone] (HP) Date:2018-01-28 01/28/2018 Secondary JIMMYMI BUTLERDOB: [place] Insurance:MEDICAIDPoli [id number] Community cy Number: Hospital [id number] Repository Date:2018-01-28 01/28/2018 Tertiary NOT GIVENUNK [place] Insurance:SELF PAY Community [facility] Number: Effective Repository Date:2018-01-28 01/02/2018 JIMMY FAGAN Primary JIMMY BUTLERDOB: [place] [address] Insurance:MEDICARE [id number] PART A BPolicy Number: Hospital [id number]: ([id number]) [id number] Repository [phone] (HP) Date:2013-05-22 01/02/2018 Secondary JIMMY BUTLERDOB: [place] Insurance:MEDICAIDPoli [id number] Community cy Number: Hospital [id number] Repository Date:2017-01-20 01/02/2018 Tertiary NOT GIVENUNK [place] Insurance:SELF PAY Community [facility] Number: Effective Repository Date:2017-12-23 12/16/2017 JIMMY HALLDOB: Primary JIMMY BUTLERDOB: [place] [id number] Insurance:MEDICARE A [id number] [facility] BPolicy Number: Repository STUNIT [id number] [address] [place] [address] Date: 80920Bku: (HP) 12/15/2017 JIMMY BUTLER228 Primary JIMMY BUTLERDOB: [place] [address] Insurance:MEDICARE [id number] PART A BPolicy Number: Hospital 26139Xmq: (185) [id number] Repository [phone] () Date:2013-05-22 12/15/2017 Secondary JIMMY CHUNB: [place] Insurance:MEDICAIDPoli [id number] [facility] Number: [facility] [id number] Repository Date:2017-01-20 12/15/2017 Tertiary NOT GIVENUNK [place] Insurance:SELF PAY [facility]: Effective Repository Date:2017-11-22
== END 2018-11-04 15:29 | disposition home or self-care (01) ==
LOC: SDC 12:01 → AC 12:02
PROVIDERS: Family Provider Family Medicine; PCP Family Medicine; Referring Provider Anesthesiology Pain Medicine; Visit Provider Anesthesiology Pain Medicine
PROC: (CPT 22514; principal; 2018-11-04 12:45)
DX: M48.56XA Collapsed vertebra, not elsewhere classified, lumbar region, initial encounter for fracture (principal); M89.9 Disorder of bone, unspecified; D64.9 Anemia, unspecified; I48.91 Unspecified atrial fibrillation; F17.200 Nicotine dependence, unspecified, uncomplicated; G47.30 Sleep apnea, unspecified; I11.0 Hypertensive heart disease with heart failure; I50.9 Heart failure, unspecified; J96.10 Chronic respiratory failure, unspecified whether with hypoxia or hypercapnia; J62.8 Pneumoconiosis due to other dust containing silica; Z99.81 Dependence on supplemental oxygen; Z95.810 Presence of automatic (implantable) cardiac defibrillator; Z79.52 Long term (current) use of systemic steroids; Z79.02 Long term (current) use of antithrombotics/antiplatelets; Z79.891 Long term (current) use of opiate analgesic; Z79.899 Other long term (current) drug therapy
CPT/HCPCS: 22514; 72020; 76000; J7120; J3490

== ENCOUNTER 2018-11-19 18:22 | Inpatient (IN) | payer MEDICARE, OTHER, SELFPAY ==
[2018-11-04 12:31] VITALS: BMI 19.8
[2018-11-19] VITALS (16 sets, daily range): BP systolic 79–121; BP diastolic 56–107; PULSE 74–108; RESP 12–29; TEMP 36.1–36.8; O2SAT 72–100; BMI 20.2; BMI 19.1; BMI 19.2
--- NOTE | 2018-11-19 18:35 | RAD_ITS ---
STUDY: X-RAY CHEST REASON FOR EXAM: Male, 68 years old. Dyspnea. Cough. TECHNIQUE: Single frontal view of the chest. COMPARISON: July 01, 2018 FINDINGS: There is stable hyperexpansion. There are interstitial opacities in both apices unchanged. There is no demonstrated pleural abnormality. There is stable cardiomegaly with a dual lead cardiac pacer. Normal mediastinum and yee. Normal visualized pulmonary arteries. Normal visualized aortic arch and descending thoracic aorta. There is a new kyphoplasty of the upper lumbar spine. Normal visualized ribs, clavicles, and shoulders. There is no demonstrated abnormality of the visualized soft tissue structures of the upper abdomen. RAD/Chest 1 View (Portable) IMPRESSION: Stable hyperexpansion compatible with COPD. No new or acute pathology. Electronically Signed: Quincy Abarca MD at 20:22 EST , Service support ,
--- NOTE | 2018-11-19 18:35 | EKG12_ITS ---
Test Reason : SOB Blood Pressure : / mmHG Vent. Rate : 101 BPM Atrial Rate : 108 BPM P-R Int : 144 ms QRS Dur : 104 ms QT Int : 356 ms P-R-T Axes : 047 -62 121 degrees QTc Int : 461 ms Sinus tachycardia with occasional Premature ventricular complexes Left axis deviation ST & T wave abnormality, consider lateral ischemia Abnormal ECG Confirmed by DUNCAN NGUYEN, KAHLIL ([id number]), loan expeditor MALIA INGRAM ([id number]) on 11/21/2018 12:47:03 PM Referred By: Alpesh Caro Confirmed By:KAHLIL SONG MD
[2018-11-19] MEDS: Ipratropium/Albuterol Sulfate 3 ML AMPUL.NEB INHALATION (19:00)
[2018-11-19 19:01] LABS: Allen Test POS; Base Excess 21 mmol/L (-2 to +2); Bicarbonate 46.8 mmol/L (22-26); Blood Gas Specimen Type ART; O2 Delivery Device Nasal Can; PO2 122 mmHG (75-100); SITE R Radial; SO2 98 % (95-99); Time Given 1847; Total Carbon Dioxide 50 mmol/L; pCO2 89.1 mmHg (35-45); pH 7.33 (7.35-7.45)
[2018-11-19 19:09] LABS: Absolute Lymphocyte Count 0.44 X10^3/ul (0.83-4.51); Absolute Neutrophil Count 4.5 X10^3/uL (2.0-7.7); Hematocrit 25.1 % (40-54); Lymphocyte # 0.44 X10^3/ul (4.0); Lymphocyte % 8.3 % (19-41); Mean Corp Hgb Conc 27.9 g/gl (32-36); Mean Corpuscular Hgb 25.8 pg (27.0-32.0); Mean Corpuscular Volume 92.6 fL (80-94); Mean Platelet Vol. 10.5 fl (6.2-12.0); Monocyte# 0.39 X10^3/uL; Monocyte% 7.4 % (0-10); Neutrophil # 4.47 X10^3/uL (2.7-7.7); Neutrophil % 84.3 % (47-70); Platelet Count 219 K/mm3 (150-450); RBC Distribution Width CV 16.3 % (11.6-14.6); RBC Distribution Width SD 53.5 fl (35.1-43.9); Red Blood Count 2.71 M/mm3 (4.6-6.2); White Blood Count 5.3 K/mm3 (4.4-11.0)
[2018-11-19 19:12] LABS: Differential Indicated SCAN CRITERIA MET; POSITIVE COUNT NO; POSITIVE DIFFERENTIAL YES; POSITIVE MORPHOLOGY NO
[2018-11-19 19:18] LABS: International Normalized Ratio 2.4; Partial Thromboplast Time 29.5 Seconds (24.1-36.2); Prothrombin Time (Protime)PT. 26.5 SECONDS (11.7-14.9)
[2018-11-19 19:24] LABS: Differential Comment SCANNED
[2018-11-19] MEDS: 0.9% Normal Saline 1,000 ML 999 ML IV ×2 (19:30→20:56)
[2018-11-19 19:44] LABS: ALB/GLOB Ratio 0.6 RATIO (0.9-2.4); AST(SGOT) 43 U/L (15-37); Alanine Aminotransfer ALT/SGPT 18 U/L (16-61); Albumin, Serum 2.9 g/dL (3.2-5.0); Alkaline Phosphatase 92 U/L (45-117); Anion Gap 6 (5-15); BUN 97 mg/dL (7-18); BUN/Creat Ratio 43.9 RATIO (10-20); Calcium,Total 8.9 mg/dL (8.5-10.1); Chloride 99 mmol/L (98-107); Creatinine, Serum 2.21 mg/dL (0.70-1.30); EST Glomerular Filtration Rate 31 mL/min (>60); Est Glom Filt Rate - Afr Amer 38 mL/min (>60); Estimated Creatinine Clearance 28.93 ml/min; Globulin 4.7 g/dL (2.2-4.2); Glucose 215 mg/dL (74-106); Lactic Acid 1.2 mmol/L (0.4-2.0); Protein, Total 7.6 g/dL (6.4-8.2); Sodium Level 149 mmol/L (136-145)
--- NOTE | 2018-11-19 20:33 | CPS ---
increased IPAP to 14 and decreased FiO2 to 35%
--- NOTE | 2018-11-19 21:02 | HP.PCM_ITS ---
Problem List (1) Acute on chronic respiratory failure with hypercapnia Status: Acute (2) Severe dehydration Status: Acute (3) COPD exacerbation Status: Acute (4) Acute encephalopathy Status: Acute (5) Acute on chronic respiratory failure with hypoxia and hypercapnia Status: Acute History of Present Illness Date of Admission: 11/19/18 Chief Complaint: lethargy History was taken from the emergency department doctor because at the time of assessment patient was on BiPAP and who came to the emergency department with patient was not present at that time. The patient is a 68 year old M with a significant history of CAD; COPD; type 2 diabetes; hypertension; hypercholesterolemia; and dementia who presented with increased shortness of breath and weakness for a couple of days. Associated with symptoms is confusion and increased somnolence. Patient had a compression fracture and he had a kyphoplasty with Dr. Weiss. He has continued to have pain after the procedure. At emergency department his hemoglobin was 7.0. The patient is on Eliquis for A. fib. EKG at the emergency department shows some ST changes and he had a troponin of 0.4. 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 Shortness of breath (Chronic) Hypercapnic respiratory failure, chronic (Chronic) Acute and chronic respiratory failure with hypercapnia (Chronic) Paroxysmal atrial fibrillation (Chronic) Chronic respiratory failure (Chronic) Silicosis (Chronic) History of implantable cardioverter-defibrillator (ICD) placement (Chronic) CHF (congestive heart failure) (Chronic) Hypertension (Chronic) Medical History: Medical History (Last Reviewed 11/19/18 @ 21:52 by Alpesh Caro MD) Hypersomnia (Chronic) G47.10 Pleural effusion (Inactive) J90 PETE (obstructive sleep apnea) (Chronic) G47.33 Stage 4 very severe COPD by GOLD classification (Chronic) J44.9 Tobacco abuse (Chronic) Z72.0 in remission 04/2018 Shortness of breath (Chronic) R06.02 Confusion (Resolved) R41.0 Hypercapnic respiratory failure, chronic (Chronic) J96.12 Acute and chronic respiratory failure with hypercapnia (Chronic) J96.22 Paroxysmal atrial fibrillation (Chronic) I48.0 Chronic respiratory failure (Chronic) J96.10 Silicosis (Chronic) J62.8 Acute on chronic systolic (congestive) heart failure (Acute) I50.23 CHF (congestive heart failure) (Chronic) I50.9 Hypertension (Chronic) I10 Pneumothorax on left (Resolved) J93.9 Allergies aspirin Adverse Reaction (Verified 11/19/18 18:24) Upset Stomach Home Medications: Ambulatory Orders Medication Instructions Recorded Finasteride [Proscar] 5 mg PO DAILY 09/09/15 Apixaban [Eliquis] 5 mg PO BID 06/19/16 Isosorbide Mononitrate [Imdur] 30 mg PO DAILY 06/19/16 Oxygen, Home [Home Oxygen] 3 lpm NASAL DAILY PRN PRN 08/12/16 hydrALAZINE [Apresoline] 25 mg PO TID 08/12/16 Lisinopril [Zestril] 20 mg PO QHS 03/19/17 memantine 5 mg tablet 28 mg PO QDAY 11/09/17 Cyanocobalamin [Vitamin B12] 1,000 mcg PO DAILY@0800 05/02/18 Nitroglycerin 0.4 mg SL PRN PRN 05/02/18 Carvedilol 25 mg PO BID 07/01/18 digoxin 62.5 mcg tablet 62.5 mcg PO DAILY 09/27/18 furosemide 40 mg tablet 60 mg PO BID tab 09/27/18 spironolactone 25 mg tablet 12.5 mg PO DAILY tab 09/27/18 prednisone 10 mg tablet 10 mg PO QDAY #30 tab 11/17/18 Donepezil HCl 5 mg PO QHS 11/19/18 Surgical History: Surgical History (Last Reviewed 11/19/18 @ 21:52 by Alpesh Caro MD) History of implantable cardioverter-defibrillator (ICD) placement (Chronic) Z95.810 Surgical History: total knee arthroplasty, - - back surgery, brain surgery for aneurysm. ICD insertion Psychiatric History: No pertinent psych hx Smoking Status: Former smoker - *Family History Paternal Family History: Family History (Last Reviewed 11/19/18 @ 21:53 by Alpesh Caro MD) Father Lung disease Brother Cancer History Items: No pertinent history Maternal Family History: Family History (Last Reviewed 11/19/18 @ 21:53 by Alpesh Caro MD) Father Lung disease Brother Cancer History Items: No pertinent history Review of Systems Unable to obtain accurate/complete ROS d/t: since patient is lethargic and he is on bipap. VTE Information - Inpt Only VTE Present on Admission: No VTE Mechan Device Prophylaxis: SCD's, None VTE Pharm Prophylaxis ordered?: Yes Patient Problems: Active and Suspected Problems (Last Reviewed 11/19/18 @ 21:52 by Alpesh Caro MD) Acute on chronic respiratory failure with hypercapnia (Acute) Severe dehydration (Acute) Acute encephalopathy (Acute) - Physical Exam General: Lethargic HEENT: Atraumatic, PERRLA, Normocephalic Neck: Supple, No JVD, Negative Carotid Bruits Lungs: Rhonchi, Tachypneic Cardiovascular: Regular rate, No murmurs Abdomen: Bowel Sounds Present, Soft, Non Tender, - - Emergency department doctor reported unremarkable rectal exams. Extremities: No edema, Capillary Refill Less than 3 Seconds Skin: No rashes, No breakdown Musculoskeletal: No Tenderness to Palpation of Joints or Extremities Neurological: - - Lethargic Psych/Mental Status: - - Patient was lethargic on BiPAP. Vital Signs Temp Pulse Resp BP Pulse Ox 96.9 F L 92 18 100/75 97 11/19/18 20:40 11/19/18 20:40 11/19/18 20:40 11/19/18 20:40 11/19/18 20:40 Oxygen Flow Rate (L/min) 4 Oxygen Delivery Method Bi-pap Weight: 65.771 kg Body Mass Index (BMI) 20.2 Microbiology Past 72 Hours 11/19/18 19:55 Stool Occult Blood (JEANNE) - Final Stool Laboratory Tests Past 24 Hrs 11/19/18 11/19/18 11/19/18 18:45 18:45 18:45 WBC 5.3 RBC 2.71 L Hgb 7.0 L Hct 25.1 L MCV 92.6 MCH 25.8 L MCHC 27.9 L RDW 16.3 H RDW Differential 53.5 H Plt Count 219 MPV 10.5 Immature Gran % (Auto) 0.000 Neut % (Auto) 84.3 H Lymph % (Auto) 8.3 L [place] % (Auto) 7.4 Eos % (Auto) 0.0 Baso % (Auto) 0.0 Absolute Neuts (auto) 4.5 Absolute Lymphs (auto) 0.44 L Total Counted Not Reportable Differential Comment SCANNED PT 26.5 H INR 2.4 APTT 29.5 Specimen Type Sample Site pH Bicarbonate Actual POC Total CO2 Base Excess O2 Saturation ABG pCO2 ABG pO2 Cristian Test O2 Delivery Device Liter Flow Blood Gas Notified Whom Blood Gas Notified Time Sodium 149 H Potassium 5.0 Chloride 99 Carbon Dioxide 44.0 H Anion Gap 6 BUN 97 H Creatinine 2.21 H Estim Creat Clear Calc 28.93 Est GFR (MDRD) Af Amer 38 L Est GFR (MDRD) Non-Af 31 L BUN/Creatinine Ratio 43.9 H Glucose 215 H Lactic Acid Calcium 8.9 Total Bilirubin 0.40 AST 43 H ALT 18 Alkaline Phosphatase 92 Troponin I 0.408 H B-Natriuretic Peptide Total Protein 7.6 Albumin 2.9 L Globulin 4.7 H Albumin/Globulin Ratio 0.6 L Digoxin Blood Type A1 Antigen Typing Rho(D) Type Antibody Screen Crossmatch 11/19/18 11/19/18 11/19/18 18:45 18:45 18:52 WBC RBC Hgb Hct MCV MCH MCHC RDW RDW Differential Plt Count MPV Immature Gran % (Auto) Neut % (Auto) Lymph % (Auto) [place] % (Auto) Eos % (Auto) Baso % (Auto) Absolute Neuts (auto) Absolute Lymphs (auto) Total Counted Differential Comment PT INR APTT Specimen Type ART Sample Site R Radial pH 7.33 L Bicarbonate Actual 46.8 H POC Total CO2 50 Base Excess 21 H O2 Saturation 98 ABG pCO2 89.1 H* ABG pO2 122 H Cristian Test POS O2 Delivery Device Nasal Can Liter Flow 4.0 Blood Gas Notified Whom ED MD Blood Gas Notified Time 1847 Sodium Potassium Chloride Carbon Dioxide Anion Gap BUN Creatinine Estim Creat Clear Calc Est GFR (MDRD) Af Amer Est GFR (MDRD) Non-Af BUN/Creatinine Ratio Glucose Lactic Acid 1.2 Calcium Total Bilirubin AST ALT Alkaline Phosphatase Troponin I B-Natriuretic Peptide 343.0 H Total Protein Albumin Globulin Albumin/Globulin Ratio Digoxin Blood Type A1 Antigen Typing Rho(D) Type Antibody Screen Crossmatch 11/19/18 11/19/18 11/19/18 19:27 20:14 20:14 WBC RBC Hgb Hct MCV MCH MCHC RDW RDW Differential Plt Count MPV Immature Gran % (Auto) Neut % (Auto) Lymph % (Auto) [place] % (Auto) Eos % (Auto) Baso % (Auto) Absolute Neuts (auto) Absolute Lymphs (auto) Total Counted Differential Comment PT INR APTT Specimen Type Sample Site pH Bicarbonate Actual POC Total CO2 Base Excess O2 Saturation ABG pCO2 ABG pO2 Cristian Test O2 Delivery Device Liter Flow Blood Gas Notified Whom Blood Gas Notified Time Sodium Potassium Chloride Carbon Dioxide Anion Gap BUN Creatinine Estim Creat Clear Calc Est GFR (MDRD) Af Amer Est GFR (MDRD) Non-Af BUN/Creatinine Ratio Glucose Lactic Acid Calcium Total Bilirubin AST ALT Alkaline Phosphatase Troponin I B-Natriuretic Peptide Total Protein Albumin Globulin Albumin/Globulin Ratio Digoxin Pending Blood Type Cancelled Pending A1 Antigen Typing Cancelled Rho(D) Type Cancelled Antibody Screen Cancelled Pending Crossmatch See Detail Assessment/Plan All Active Problems (Last Reviewed 11/19/18 @ 21:52 by Alpesh Caro MD) Elevated troponin (Acute) Acute on chronic respiratory failure with hypercapnia (Acute) Severe dehydration (Acute) Acute encephalopathy (Acute) Pneumothorax (Acute) COPD exacerbation (Acute) Acute on chronic respiratory failure with hypoxia and hypercapnia (Acute) Confusion (Resolved) Acute on chronic systolic (congestive) heart failure (Acute) Pneumothorax on left (Resolved) The patient is a 68 year old M with a significant history of CAD; COPD; type 2 diabetes; hypertension; hypercholesterolemia; and dementia who presented with increased shortness of breath and weakness for a couple of days; and found to be anemic; with severely elevated creatinine and with severe hypotension; abnormal urinalysis; EKG changes and slightly elevated troponin. Acute encephalopathy Likely due to CO2 narcosis and severe dehydration BiPAP was started from the emergency department; continue. Acute COPD exacerbation Will order Solu-Medrol 125 mg x1 and prednisone 40 mg daily. DuoNe scheduled Albuterol as needed Severe dehydration Sodium on admission was 149; his BUN was 97. Review of records shows that his BUN 3 months ago was 44 His creatinine on admission was 2.21. Review of records show that his creatinine about 3 months ago was 1.42. His baseline creatinine is about 1.25. Patient received normal saline IV bolus at emergency department. We will continue patient on maintenance infusion normal saline. Because of anemia to packed red blood cells was ordered for the emergency department the patient will receive. Severe hypotension On admission his blood pressure was 79/56. His blood pressures responded to IV fluids but still maintain low with systolic blood pressure of of 89-100. Emergency department doctor reports that after patient does not have high blood pressure and is highest home blood pressure is around 120. Patient does not meet criteria for sepsis at this time. Blood cultures was ordered from the emergency department. Urine culture was ordered from emergency department. Occult stool was ordered from emergency department. Lactic acid at emergency department was 1.2. RAFAEL On admission his creatinine was at 2.21. Review of records showed a baseline creatinine of around 1.25. BUN over creatinine is severely elevated. Likely prerenal azotemia from dehydration. IV hydration and blood administration as above. Trend BMP. Severe anemia Would hold Eliquis for A. fib at this time. We will get iron studies; folate and vitamin B12. Blood administration as above Repeat CBC in a.m Protonix twice daily Occult stool ordered from the ED. Acute cystitis Preliminary urinalysis at emergency department showed elevated leukocyte esterase. Patient has been started on ceftriaxone from the emergency department. We will continue ceftriaxone Chronic A. fib Eliquis held at this time because of anemia Digoxin level 1.36 comparatively elevated especially in the setting of RAFAEL. We will hold digoxin at this time. Diabetes mellitus Admission his blood glucose was not within goal. Because of his severe encephalopathy and on BiPAP we will keep patient n.p.o. and will start patient on low dose correction scale insulin every 4 hours. EKG changes with elevated troponin Is elevated troponin could be due to RAFAEL; or dehydration Trend troponin Repeat EKG in a.m. Dementia Home medication held because of acute encephalopathy. DVT prophylaxis SCD ordered. Miscellaneous: Because of encephalopathy all his p.o. medications were held. Code Visit Inpatient E&M: 45057 Init Hosp L3
[2018-11-19 21:12] LABS: Red Blood Cells-Urine 0 SEEN /hpf (0-5)
[2018-11-19 21:14] LABS: Color, Urine Yellow (Yellow); Glucose, Dipstick Normal (Normal); Ketone-Dipstick Negative (Negative); Leukocyte Esterase-Dipstick 500 /ul (Negative); Nitrite-Dipstick Negative (Negative); Occult Blood-Urine Negative /ul (Negative); Protein-Dipstick Negative (Negative); Urine Bilirubin Dipstick Negative (Negative); Urine Clarity Sl. Cloudy (Clear); Urine Urobilinogen Normal (Normal)
--- NOTE | 2018-11-19 21:14 | ED.RN ---
DR ROMULO ALEXANDER FOR DR CANTOR
[2018-11-19 21:24] LABS: Digoxin Level 1.36 ng/mL (0.80-2.00)
[2018-11-19 21:46] LABS: Bacteria 4+ /hpf (None Seen); Mucous, Urine 1+ /hpf (<or=2+); Squamous Epithelial Cells - UA 0-5 SEEN /hpf (0-5); White Blood Cells 5-10 SEEN /hpf (0-5)
--- NOTE | 2018-11-19 21:55 | CPS ---
increased FiO2 to 35%
[2018-11-19 22:00] LABS: Allen Test POS; Base Excess 18 mmol/L (-2 to +2); Blood Gas Specimen Type ART; EPAP 6; FI02 45; IPAP 14; PO2 88 mmHG (75-100); RR 12; SITE L Radial; SO2 95 % (95-99); Time Given 2145; Total Carbon Dioxide 46 mmol/L; pCO2 80.1 mmHg (35-45); pH 7.35 (7.35-7.45)
[2018-11-19] MEDS: Ceftriaxone 1 GM/50 ML BAG IV (22:06)
--- NOTE | 2018-11-19 22:15 | ED.VISSUMM ---
- ER Visit Summary Date of Service: 11/19/18 Chief Complaint: Dyspnea History of Present Illness: The patient is a 68 M who was brought in from home for increasing shortness of breath that started this morning. It has been continuous and severe. He has been sleepy and confused and so some of the history is obtained from his . He is currently denying any cough or sputum. Denies any chest pain. Denies any leg swelling. He has an extensive medical history including respiratory failure, hypercapnia, obstructive sleep apnea, CHF, COPD, pleural effusions, smoking, A. fib, low blood pressure. He takes digoxin and Eliquis and is on 3 L of oxygen at home among his other medications. His reported that he had a kyphoplasty 3 weeks ago and has continued back pain since the kyphoplasty. Physical Examination: Afebrile. Heart rate 106 and respiratory rate 28. 93% on nasal cannula, 4 L. Initial blood pressure was 121/107. The patient was somnolent with his eyes mostly closed, but he aroused to voice. He was oriented. HEENT exam unremarkable. Heart tachycardic but regular. Lungs show diminished sounds throughout. Abdomen soft and nontender. Back was nontender. Rectal exam was nontender with no gross blood. Lower extremities show good symmetric strength and sensation. Normal reflexes, symmetric. Test Results: EKG showed sinus rhythm at a rate of [address] nonspecific [address] and T wave changes. CBC unremarkable except for a white count of 7.0. Sodium 149, CO2 44, glucose 215, BUN 97, creatinine 2.21, INR 2.4. Troponin 0 0.408, BNP 343, lactate 1.2. Urinalysis showed signs of infection. Initial pH 7.329, CO2 89.1 and O2 122. Cultures pending. Hemoccult testing negative. Chest x-ray showed chronic changes, COPD. Emergency Department Course and Treatment: Patient presents with signs of respiratory failure, history of COPD and hypercapnia. He was started on BiPAP and placed on a monitor. He was treated with a DuoNeb. Symptomatically, he felt much better. Chest x-ray showed no evidence of pneumonia. He is not having pneumonia symptoms and does not have a fever or leukocytosis. Patient had an EKG concerning for some ischemia. His troponin was elevated at 0.408. He is denying any chest pain. Hemoglobin is 7. He has no history of bleeding or anemia. Type and cross was ordered and I ordered 2 units of packed red cells. He and his consented to this. His Hemoccult testing was negative. I am not sure where he is losing blood. Again, he is on Eliquis. Urinalysis showed signs of infection. He needs criteria for severe sepsis. His lactate was normal. He did have some hypotension, but his map was never below 65. His states that he is always hypotensive. I looked at his old records. He does tend to run around 100 systolic and rarely he is as high as 120 systolic. His blood pressure and heart rate improved with IV fluids. I suspect he will also improve with blood transfusion. He was treated with Rocephin. Culture pending. BUN 97 and creatinine 2.21. The patient received IV fluids. Patient was discussed with the hospitalist. Hospitalist requested central line placement for hypotension and possible need for pressors. I discussed this with the patient and his . She told me that he always has low blood pressure and does not understand why we would want to give pressors. I explained this. She does not want a central line at this point. He has [address] She said that she would consent for central line if he absolutely needed it but would not want one now unless it was truly an emergency. I discussed this with the hospitalist. I also spoke with the fagot maker, and the patient will be admitted to the ICU. I spoke with the patient's on multiple occasions. I expressed that he is critically ill and will require admission to the ICU because he has multiple serious medical issues going on right now. Patient is full code. Treatment Plan: As above Disposition: Admission to ICU Impression: 1. Acute respiratory failure 2. Severe sepsis 3. UTI 4. Elevated troponin 5. Anemia 6. Acute kidney injury This note was generated with [employer] dictation software. It may contain incorrect words, spelling, and punctuation that were not noted in review of the chart prior to signing ED Disposition - Plan for ED Patient: Chief Complaint: Shortness of Breath
[2018-11-20] VITALS (45 sets, daily range): BP systolic 88–130; BP diastolic 59–86; PULSE 62–114; RESP 12–30; TEMP 36.8–37.5; O2SAT 84–100
[2018-11-20] MEDS: Ipratropium/Albuterol Sulfate 3 ML AMPUL.NEB INHALATION ×6 (00:01→22:12)
[2018-11-20] MEDS: MethylPREDNISolone 125 MG/2 ML Vial IV (00:01)
[2018-11-20 01:08] LABS: Anion Gap 2 (5-15); BUN 88 mg/dL (7-18); BUN/Creat Ratio 50.9 RATIO (10-20); Calcium,Total 8.2 mg/dL (8.5-10.1); Chloride 108 mmol/L (98-107); Creatinine, Serum 1.73 mg/dL (0.70-1.30); EST Glomerular Filtration Rate 42 mL/min (>60); Est Glom Filt Rate - Afr Amer 50 mL/min (>60); Estimated Creatinine Clearance 35.01 ml/min; Glucose 98 mg/dL (74-106); Magnesium 2.5 mg/dL (1.6-2.6); Phosphorus 3.8 mg/dL (2.5-4.9); Potassium 4.8 mmol/L (3.5-5.1); Sodium Level 150 mmol/L (136-145)
[2018-11-20 01:26] LABS: Bedside Glucose 84 mg/dL (70-110)
[2018-11-20 02:06] LABS: Ferritin 269 ng/mL (26-388); Iron 36 ug/dL (65-175); Iron Binding Capacity,Total 218 ug/dL (250-450); PERCENT IRON SATURATION 16.5 % (15.0-55.0)
[2018-11-20 05:12] LABS: Hematocrit 27.3 % (40-54); Mean Corp Hgb Conc 29.3 g/gl (32-36); Mean Corpuscular Hgb 27.4 pg (27.0-32.0); Mean Corpuscular Volume 93.5 fL (80-94); Mean Platelet Vol. 9.7 fl (6.2-12.0); Platelet Count 135 K/mm3 (150-450); RBC Distribution Width CV 15.5 % (11.6-14.6); RBC Distribution Width SD 49.6 fl (35.1-43.9); Red Blood Count 2.92 M/mm3 (4.6-6.2); White Blood Count 4.3 K/mm3 (4.4-11.0)
[2018-11-20 05:16] LABS: Scan Indicated on CBC? Y/N NO
[2018-11-20 05:31] LABS: Bedside Glucose 119 mg/dL (70-110)
[2018-11-20 05:36] LABS: Anion Gap 5 (5-15); BUN 81 mg/dL (7-18); BUN/Creat Ratio 50.3 RATIO (10-20); Calcium,Total 8.5 mg/dL (8.5-10.1); Chloride 109 mmol/L (98-107); Creatinine, Serum 1.61 mg/dL (0.70-1.30); EST Glomerular Filtration Rate 45 mL/min (>60); Est Glom Filt Rate - Afr Amer 55 mL/min (>60); Estimated Creatinine Clearance 38.95 ml/min; Glucose 106 mg/dL (74-106); Potassium 4.6 mmol/L (3.5-5.1); Sodium Level 155 mmol/L (136-145)
--- NOTE | 2018-11-20 05:55 | EKG12_ITS ---
Test Reason : AM EKG Blood Pressure : / mmHG Vent. Rate : 107 BPM Atrial Rate : 107 BPM P-R Int : 134 ms QRS Dur : 102 ms QT Int : 326 ms P-R-T Axes : 017 -60 143 degrees QTc Int : 435 ms Sinus tachycardia with Premature supraventricular complexes Left axis deviation Low voltage QRS (limb leads) ST & T wave abnormality, consider lateral ischemia Abnormal ECG Confirmed by DUNCAN NGUYEN, KAHLIL ([id number]), pictures editor MALIA INGRAM ([id number]) on 11/23/2018 3:10:02 PM Referred By: Alpesh Caro Confirmed By:KAHLIL SONG MD
--- NOTE | 2018-11-20 06:25 | RAD_ITS ---
STUDY: X-RAY - LUMBAR SPINE REASON FOR EXAM: Male, 68 years old. recent kyphoplasty, pain in back since TECHNIQUE: 2 view(s) of the lumbar spine were obtained. COMPARISON: October 10, 2018 FINDINGS: Normal lumbar lordosis. There is vertebroplasty at L2 now. There is superior endplate depression at L1 now. There is multilevel endplate spondylosis of the lumbar vertebrae. There is multi-level degenerative disc disease with multi-level disc space narrowing. The soft tissue structures are unremarkable. RAD/Lumbar Spine 2 or 3 Views IMPRESSION: Mild acute superior endplate fracture at L2. Electronically Signed: Bay Johansen MD at 14:05 EST Tel , Service support ,
--- NOTE | 2018-11-20 07:13 | CON.PCM_ITS ---
Problem List (1) Elevated troponin Status: Acute (2) Acute on chronic respiratory failure with hypercapnia Status: Acute (3) Severe dehydration Status: Acute (4) Acute encephalopathy Status: Acute (5) Acute on chronic respiratory failure with hypoxia and hypercapnia Status: Acute (6) PETE (obstructive sleep apnea) Status: Chronic (7) Pleural effusion Status: Inactive (8) Stage 4 very severe COPD by GOLD classification Status: Chronic (9) 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 (10) Chronic respiratory failure Status: Chronic (11) Silicosis Status: Chronic (12) History of implantable cardioverter-defibrillator (ICD) placement Status: Chronic (13) CHF (congestive heart failure) Status: Chronic (14) Hypertension Status: Chronic Reason for Consult Date of Consultation: 11/20/18 Reason for Consultation: Respiratory failure History of Present Illness: The patient is a 68 year old M, with past medical history listed below and well- known to me from the outpatient office, who presented to [facility] on 11/19/2018 secondary to increasing shortness of breath. Patient reportedly had also become very sleepy and confused. Patient reportedly has had no change in his cough or sputum and denied any leg swelling or chest pain. Patient reportedly did have a kyphoplasty of L2 3 weeks ago and has had continued back pain since that time with limited mobility. On presentation to the emergency room, patient was noted to be tachycardic at 106 bpm and 93% on his baseline 4 L nasal cannula. Patient was very slow to respond and noted to be hypernatremic with elevated creatinine at 2.2 and BNP at 343. ABG showed partially compensated hypercarbic respiratory failure. Patient was placed on BiPAP therapy and given DuoNeb therapy. Chest x-ray was not suggestive of any infiltrates. Patient was treated with Rocephin and admitted to the intensive care unit for further evaluation. Patient is not able to provide much additional history at this time. Patient has improved following BiPAP therapy. Patient has been receiving IV fluids and tolerating well. Patient's blood pressure has improved following IV hydration. Patient reportedly was a full code in the ER and this is consistent with outpatient discussions of CODE STATUS. Patient does have a history of a spiculated right upper lobe mass, but there was no significant change compared to 2016. In the office, patient has had issues with cor pulmonale requiring diuretic therapy with subjective improvement. Patient does continue to smoke despite oxygen therapy. Patient is relatively sedentary otherwise. Patient is anticoagulated secondary to A. fib. Patient has had a history in the past of a spontaneous pneumothorax secondary to his advanced COPD. Unable to obtain any further review of systems. 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 Shortness of breath (Chronic) Hypercapnic respiratory failure, chronic (Chronic) Acute and chronic respiratory failure with hypercapnia (Chronic) Paroxysmal atrial fibrillation (Chronic) Chronic respiratory failure (Chronic) Silicosis (Chronic) History of implantable cardioverter-defibrillator (ICD) placement (Chronic) CHF (congestive heart failure) (Chronic) Hypertension (Chronic) Medical History: Medical History (Last Reviewed 11/19/18 @ 21:52 by Alpesh Caro MD) Hypersomnia (Chronic) G47.10 Pleural effusion (Inactive) J90 PETE (obstructive sleep apnea) (Chronic) G47.33 Stage 4 very severe COPD by GOLD classification (Chronic) J44.9 Tobacco abuse (Chronic) Z72.0 in remission 04/2018 Shortness of breath (Chronic) R06.02 Confusion (Resolved) R41.0 Hypercapnic respiratory failure, chronic (Chronic) J96.12 Acute and chronic respiratory failure with hypercapnia (Chronic) J96.22 Paroxysmal atrial fibrillation (Chronic) I48.0 Chronic respiratory failure (Chronic) J96.10 Silicosis (Chronic) J62.8 Acute on chronic systolic (congestive) heart failure (Acute) I50.23 CHF (congestive heart failure) (Chronic) I50.9 Hypertension (Chronic) I10 Pneumothorax on left (Resolved) J93.9 Allergies aspirin Adverse Reaction (Verified 11/19/18 18:24) Upset Stomach Home Medications: Ambulatory Orders Medication Instructions Recorded Finasteride [Proscar] 5 mg PO DAILY 09/09/15 Apixaban [Eliquis] 5 mg PO BID 06/19/16 Isosorbide Mononitrate [Imdur] 30 mg PO DAILY 06/19/16 Oxygen, Home [Home Oxygen] 3 lpm NASAL DAILY PRN PRN 08/12/16 hydrALAZINE [Apresoline] 25 mg PO TID 08/12/16 Lisinopril [Zestril] 20 mg PO QHS 03/19/17 memantine 5 mg tablet 28 mg PO QDAY 11/09/17 Cyanocobalamin [Vitamin B12] 1,000 mcg PO DAILY@0800 05/02/18 Nitroglycerin 0.4 mg SL PRN PRN 05/02/18 Carvedilol 25 mg PO BID 07/01/18 digoxin 62.5 mcg tablet 62.5 mcg PO DAILY 09/27/18 furosemide 40 mg tablet 60 mg PO BID tab 09/27/18 spironolactone 25 mg tablet 12.5 mg PO DAILY tab 09/27/18 prednisone 10 mg tablet 10 mg PO QDAY #30 tab 11/17/18 Donepezil HCl 5 mg PO QHS 11/19/18 Surgical History: Surgical History (Last Reviewed 11/19/18 @ 21:52 by Alpesh Caro MD) History of implantable cardioverter-defibrillator (ICD) placement (Chronic) Z95.810 Surgical History: total knee arthroplasty, - - back surgery, brain surgery for aneurysm. ICD insertion Psychiatric History: No pertinent psych hx Smoking Status: Former smoker - *Family History Paternal Family History: Family History (Last Reviewed 11/19/18 @ 21:53 by Alpesh Caro MD) Father Lung disease Brother Cancer History Items: No pertinent history Maternal Family History: Family History (Last Reviewed 11/19/18 @ 21:53 by Alpesh Caro MD) Father Lung disease Brother Cancer History Items: No pertinent history Review of Systems Unable to obtain accurate/complete ROS d/t: See HPI Patient Problems: Active and Suspected Problems (Last Reviewed 11/19/18 @ 21:52 by Alpesh Caro MD) Acute on chronic respiratory failure with hypercapnia (Acute) Severe dehydration (Acute) Acute encephalopathy (Acute) Objective: Chest x-ray was personally reviewed and appears to be at his baseline. Patient CT scan from April was personally reviewed showing spiculated right upper lobe and left upper lobe masses. These were consistent with CT from 2016. - Physical Exam General: - - On BiPAP therapy. Appears older than stated age. Good BiPAP synchrony noted. HEENT: Atraumatic, PERRLA, EOMI, Normocephalic, - - Scleral injection without icterus Oral: No Gingival or Mucosal Lesions/ Ulcerations, Dry Mucosa Neck: Supple, No JVD, No Nodes, Trachea Midline Lungs: No rhonchi, No wheeze, No rales, Diminished, - - Symmetric expansion. No dullness to percussion. Cardiovascular: Normal S1, Normal S2, Irregular Rate, Murmur - Grade 2 out of 6 systolic ejection murmur at the left sternal border, No rub noted, No Gallop Abdomen: Bowel Sounds Present, Soft, Non Tender, Non-Distended Extremities: No cyanosis, Capillary Refill Less than 3 Seconds, Clubbing, Edema - Trace lower extremity Skin: No breakdown, - - Slight petechial rash noted in left antecubital Musculoskeletal: Cachexia, Muscle Wasting Lymphatic: No Cervical, Supraclavicular, or Inguinal Adenopathy Neurological: Cranial nerves II-XII grossly intact, Neuro grossly intact, Motor Exam 5/5 strength throughout Psych/Mental Status: Appropriate, Flat Affect Vital Signs Temp Pulse Resp BP Pulse Ox 37.5 C H 102 H 20 H 106/83 H 100 11/20/18 07:00 11/20/18 07:00 11/20/18 07:00 11/20/18 07:00 11/20/18 07:00 Oxygen Flow Rate (L/min) 6 Oxygen Delivery Method Nasal Cannula Weight: 64.5 kg Body Mass Index (BMI) 19.1 Intake and Output for Last 24 Hours 11/18/18 11/19/18 11/20/18 23:59 23:59 23:59 Intake Total 0 / 0 1728 / 1728 Output Total 750 / 750 Balance 0 / 0 978 / 978 Microbiology Past 72 Hours 11/19/18 19:55 Stool Occult Blood (JEANNE) - Final Stool Laboratory Tests Past 24 Hrs 11/19/18 11/19/18 11/19/18 18:45 18:45 18:45 WBC 5.3 RBC 2.71 L Hgb 7.0 L Hct 25.1 L MCV 92.6 MCH 25.8 L MCHC 27.9 L RDW 16.3 H RDW Differential 53.5 H Plt Count 219 MPV 10.5 Immature Gran % (Auto) 0.000 Neut % (Auto) 84.3 H Lymph % (Auto) 8.3 L [place] % (Auto) 7.4 Eos % (Auto) 0.0 Baso % (Auto) 0.0 Absolute Neuts (auto) 4.5 Absolute Lymphs (auto) 0.44 L Total Counted Not Reportable Differential Comment SCANNED PT 26.5 H INR 2.4 APTT 29.5 Specimen Type Sample Site pH Bicarbonate Actual POC Total CO2 Base Excess O2 Saturation O2 % ABG pCO2 ABG pO2 Cristian Test Respiration Rate O2 Delivery Device Liter Flow EPAP IPAP Blood Gas Notified Whom Blood Gas Notified Time Sodium 149 H Potassium 5.0 Chloride 99 Carbon Dioxide 44.0 H Anion Gap 6 BUN 97 H Creatinine 2.21 H Estim Creat Clear Calc 28.93 Est GFR (MDRD) Af Amer 38 L Est GFR (MDRD) Non-Af 31 L BUN/Creatinine Ratio 43.9 H Glucose 215 H Lactic Acid Calcium 8.9 Phosphorus Magnesium Iron TIBC Iron Saturation Ferritin Total Bilirubin 0.40 AST 43 H ALT 18 Alkaline Phosphatase 92 Troponin I 0.408 H B-Natriuretic Peptide Total Protein 7.6 Albumin 2.9 L Globulin 4.7 H Albumin/Globulin Ratio 0.6 L Vitamin B12 Folate Urine Color Urine Clarity Urine pH Ur Specific [place] Urine Protein Urine Glucose (UA) Urine Ketones Urine Occult Blood Urine Nitrite Urine Bilirubin Urine Urobilinogen Ur Leukocyte Esterase Urine RBC Urine WBC Ur Squamous Epith Cells Urine Bacteria Urine Mucus Digoxin Blood Type A1 Antigen Typing Rho(D) Type Antibody Screen Crossmatch 11/19/18 11/19/18 11/19/18 18:45 18:45 18:52 WBC RBC Hgb Hct MCV MCH MCHC RDW RDW Differential Plt Count MPV Immature Gran % (Auto) Neut % (Auto) Lymph % (Auto) [place] % (Auto) Eos % (Auto) Baso % (Auto) Absolute Neuts (auto) Absolute Lymphs (auto) Total Counted Differential Comment PT INR APTT Specimen Type ART Sample Site R Radial pH 7.33 L Bicarbonate Actual 46.8 H POC Total CO2 50 Base Excess 21 H O2 Saturation 98 O2 % ABG pCO2 89.1 H* ABG pO2 122 H Cristian Test POS Respiration Rate O2 Delivery Device Nasal Can Liter Flow 4.0 EPAP IPAP Blood Gas Notified Whom ED Blood Gas Notified Time 1847 Sodium Potassium Chloride Carbon Dioxide Anion Gap BUN Creatinine Estim Creat Clear Calc Est GFR (MDRD) Af Amer Est GFR (MDRD) Non-Af BUN/Creatinine Ratio Glucose Lactic Acid 1.2 Calcium Phosphorus Magnesium Iron TIBC Iron Saturation Ferritin Total Bilirubin AST ALT Alkaline Phosphatase Troponin I B-Natriuretic Peptide 343.0 H Total Protein Albumin Globulin Albumin/Globulin Ratio Vitamin B12 Folate Urine Color Urine Clarity Urine pH Ur Specific [place] Urine Protein Urine Glucose (UA) Urine Ketones Urine Occult Blood Urine Nitrite Urine Bilirubin Urine Urobilinogen Ur Leukocyte Esterase Urine RBC Urine WBC Ur Squamous Epith Cells Urine Bacteria Urine Mucus Digoxin Blood Type A1 Antigen Typing Rho(D) Type Antibody Screen Crossmatch 11/19/18 11/19/18 11/19/18 19:27 20:14 20:14 WBC RBC Hgb Hct MCV MCH MCHC RDW RDW Differential Plt Count MPV Immature Gran % (Auto) Neut % (Auto) Lymph % (Auto) [place] % (Auto) Eos % (Auto) Baso % (Auto) Absolute Neuts (auto) Absolute Lymphs (auto) Total Counted Differential Comment PT INR APTT Specimen Type Sample Site pH Bicarbonate Actual POC Total CO2 Base Excess O2 Saturation O2 % ABG pCO2 ABG pO2 Cristian Test Respiration Rate O2 Delivery Device Liter Flow EPAP IPAP Blood Gas Notified Whom Blood Gas Notified Time Sodium Potassium Chloride Carbon Dioxide Anion Gap BUN Creatinine Estim Creat Clear Calc Est GFR (MDRD) Af Amer Est GFR (MDRD) Non-Af BUN/Creatinine Ratio Glucose Lactic Acid Calcium Phosphorus Magnesium Iron TIBC Iron Saturation Ferritin Total Bilirubin AST ALT Alkaline Phosphatase Troponin I B-Natriuretic Peptide Total Protein Albumin Globulin Albumin/Globulin Ratio Vitamin B12 Folate Urine Color Urine Clarity Urine pH Ur Specific [place] Urine Protein Urine Glucose (UA) Urine Ketones Urine Occult Blood Urine Nitrite Urine Bilirubin Urine Urobilinogen Ur Leukocyte Esterase Urine RBC Urine WBC Ur Squamous Epith Cells Urine Bacteria Urine Mucus Digoxin 1.36 Blood Type Cancelled O POSITIVE A1 Antigen Typing Cancelled Rho(D) Type Cancelled Antibody Screen Cancelled NEGATIVE Crossmatch See Detail 11/19/18 11/19/18 11/20/18 21:03 21:51 00:35 WBC RBC Hgb Hct MCV MCH MCHC RDW RDW Differential Plt Count MPV Immature Gran % (Auto) Neut % (Auto) Lymph % (Auto) [place] % (Auto) Eos % (Auto) Baso % (Auto) Absolute Neuts (auto) Absolute Lymphs (auto) Total Counted Differential Comment PT INR APTT Specimen Type ART Sample Site L Radial pH 7.35 Bicarbonate Actual 44.0 H POC Total CO2 46 Base Excess 18 H O2 Saturation 95 O2 % 45 ABG pCO2 80.1 H* ABG pO2 88 Cristian Test POS Respiration Rate 12 O2 Delivery Device Bi / C PAP Liter Flow EPAP 6 IPAP 14 Blood Gas Notified Whom ED Blood Gas Notified Time 2145 Sodium Potassium Chloride Carbon Dioxide Anion Gap BUN Creatinine Estim Creat Clear Calc Est GFR (MDRD) Af Amer Est GFR (MDRD) Non-Af BUN/Creatinine Ratio Glucose Lactic Acid Calcium Phosphorus Magnesium Iron TIBC Iron Saturation Ferritin Total Bilirubin AST ALT Alkaline Phosphatase Troponin I B-Natriuretic Peptide Total Protein Albumin Globulin Albumin/Globulin Ratio Vitamin B12 Pending Folate Urine Color Yellow Urine Clarity Sl. Cloudy Urine pH 5.0 Ur Specific [place] 1.010 Urine Protein Negative Urine Glucose (UA) Normal Urine Ketones Negative Urine Occult Blood Negative Urine Nitrite Negative Urine Bilirubin Negative Urine Urobilinogen Normal Ur Leukocyte Esterase 500 H Urine RBC 0 SEEN Urine WBC 5-10 SEEN Ur Squamous Epith Cells 0-5 SEEN Urine Bacteria 4+ Urine Mucus 1+ Digoxin Blood Type A1 Antigen Typing Rho(D) Type Antibody Screen Crossmatch 11/20/18 11/20/18 11/20/18 00:35 00:35 00:35 WBC RBC Hgb Hct MCV MCH MCHC RDW RDW Differential Plt Count MPV Immature Gran % (Auto) Neut % (Auto) Lymph % (Auto) [place] % (Auto) Eos % (Auto) Baso % (Auto) Absolute Neuts (auto) Absolute Lymphs (auto) Total Counted Differential Comment PT INR APTT Specimen Type Sample Site pH Bicarbonate Actual POC Total CO2 Base Excess O2 Saturation O2 % ABG pCO2 ABG pO2 Cristian Test Respiration Rate O2 Delivery Device Liter Flow EPAP IPAP Blood Gas Notified Whom Blood Gas Notified Time Sodium 150 H Potassium 4.8 Chloride 108 H Carbon Dioxide 40.0 H Anion Gap 2 L BUN 88 H Creatinine 1.73 H Estim Creat Clear Calc 35.01 Est GFR (MDRD) Af Amer 50 L Est GFR (MDRD) Non-Af 42 L BUN/Creatinine Ratio 50.9 H Glucose 98 Lactic Acid Calcium 8.2 L Phosphorus 3.8 Magnesium 2.5 Iron 36 L TIBC 218 L Iron Saturation 16.5 Ferritin 269 Total Bilirubin AST ALT Alkaline Phosphatase Troponin I 0.348 H B-Natriuretic Peptide Total Protein Albumin Globulin Albumin/Globulin Ratio Vitamin B12 Folate 24.70 Urine Color Urine Clarity Urine pH Ur Specific [place] Urine Protein Urine Glucose (UA) Urine Ketones Urine Occult Blood Urine Nitrite Urine Bilirubin Urine Urobilinogen Ur Leukocyte Esterase Urine RBC Urine WBC Ur Squamous Epith Cells Urine Bacteria Urine Mucus Digoxin Blood Type A1 Antigen Typing Rho(D) Type Antibody Screen Crossmatch 11/20/18 11/20/18 11/20/18 02:22 04:50 04:50 WBC 4.3 L RBC 2.92 L Hgb 8.0 L Hct 27.3 L MCV 93.5 MCH 27.4 MCHC 29.3 L RDW 15.5 H RDW Differential 49.6 H Plt Count 135 L MPV 9.7 Immature Gran % (Auto) Neut % (Auto) Lymph % (Auto) [place] % (Auto) Eos % (Auto) Baso % (Auto) Absolute Neuts (auto) Absolute Lymphs (auto) Total Counted Differential Comment PT INR APTT Specimen Type Sample Site pH Bicarbonate Actual POC Total CO2 Base Excess O2 Saturation O2 % ABG pCO2 ABG pO2 Cristian Test Respiration Rate O2 Delivery Device Liter Flow EPAP IPAP Blood Gas Notified Whom Blood Gas Notified Time Sodium 155 H Potassium 4.6 Chloride 109 H Carbon Dioxide 41.0 H Anion Gap 5 BUN 81 H Creatinine 1.61 H Estim Creat Clear Calc 38.95 Est GFR (MDRD) Af Amer 55 L Est GFR (MDRD) Non-Af 45 L BUN/Creatinine Ratio 50.3 H Glucose 106 Lactic Acid Calcium 8.5 Phosphorus Magnesium Iron TIBC Iron Saturation Ferritin Total Bilirubin AST ALT Alkaline Phosphatase Troponin I 0.325 H B-Natriuretic Peptide Total Protein Albumin Globulin Albumin/Globulin Ratio Vitamin B12 Folate Urine Color Urine Clarity Urine pH Ur Specific [place] Urine Protein Urine Glucose (UA) Urine Ketones Urine Occult Blood Urine Nitrite Urine Bilirubin Urine Urobilinogen Ur Leukocyte Esterase Urine RBC Urine WBC Ur Squamous Epith Cells Urine Bacteria Urine Mucus Digoxin Blood Type A1 Antigen Typing Rho(D) Type Antibody Screen Crossmatch POC Glucose 11/20/18 11/20/18 05:17 01:15 POC Glucose 119 H 84 Clinical Impression(s) from Imaging Studies Chest X-Ray 11/19/18 18:35 IMPRESSION: Stable hyperexpansion compatible with COPD. No new or acute pathology. Electronically Signed: Quincy Abarca MD at 20:22 EST , Service support , Assessment/Plan Active and Suspected Problems (Last Reviewed 11/19/18 @ 21:52 by Alpesh Caro MD) Acute on chronic respiratory failure with hypercapnia (Acute) Severe dehydration (Acute) Acute encephalopathy (Acute) RECOMMENDATIONS: 1. Continue BiPAP rescue as necessary 2. Obtain imaging of kyphoplasty 3. Okay to start clears if able to tolerate off BiPAP therapy for over an hour 4. Initiate D5W at low rate 5. Okay to continue baseline medications for rate control 6. No further transfusions IMPRESSIONS: 1. Acute on chronic combined respiratory failure Unclear etiology at this time. Patient is on steroids, bronchodilators and BiPAP therapy at this time. Patient did appear severely dehydrated on presentation and may have developed respiratory muscle fatigue from an attempt to compensate for metabolic acidosis. We will continue with BiPAP rescue as necessary. Empiric antibiotics are not unreasonable initially, but low clinical suspicion for acute infectious etiology. 2. Hypovolemic hypotension Clinical suspicion for dehydration secondary to decreased mobility with recent kyphoplasty. Patient responded well to volume resuscitation and blood pressures are doing better. Patient's creatinine is improved. Patient will be initiated on D5W secondary to hypernatremia. 3. Hypernatremia/hyperchloremia Likely secondary to initial volume resuscitation. Patient will be initiated on D5W. Will need to watch closely given patient's history of congestive heart failure/cor pulmonale. 4. Anemia/chronic A. fib/diabetes mellitus/early dementia/metabolic encephalopathy/acute kidney injury Complicates care, management, recovery and prognosis. Monitor blood sugars closely. No further transfusions are indicated. Patient appears to have prerenal etiology of acute kidney injury. Volume resuscitation has been ordered. Patient can likely be continued on baseline cardiac medications if able to pass a bedside swallow evaluation following at least 1 hour of BiPAP breaks. TIME: 37 minutes critical care time spent addressing patient's acute respiratory failure, hypotension, electrolyte abnormalities, review of all data and collaboration with care team (6 AM to 7 AM) Code Visit [id number]: [id number] Critical care first hour
--- NOTE | 2018-11-20 10:00 | PCM.PN.HOSP ---
Patient Problems: Active and Suspected Problems (Last Reviewed 11/19/18 @ 21:52 by Alpesh Caro MD) Acute on chronic respiratory failure with hypercapnia (Acute) Severe dehydration (Acute) Acute encephalopathy (Acute) RAFAEL (acute kidney injury) (Acute) Subjective: still with back pain. began acutely--atraumatic. taken off BiPAP today. Vitals/I&O's: Vital Signs Temp Pulse Resp BP Pulse Ox 37.4 C H 95 26 H 117/76 100 11/20/18 08:00 11/20/18 08:00 11/20/18 08:00 11/20/18 08:00 11/20/18 08:00 Oxygen Flow Rate (L/min) 5 Oxygen Delivery Method Nasal Cannula Weight: 64.5 kg Body Mass Index (BMI) 19.1 Intake and Output for Last 24 Hours 11/18/18 11/19/18 11/20/18 23:59 23:59 23:59 Intake Total 0 / 0 1728 / 1728 Output Total 750 / 750 Balance 0 / 0 978 / 978 General: Alert, No apparent distress HEENT: Atraumatic, Normocephalic Oral: Moist Mucosa, No Gingival or Mucosal Lesions/ Ulcerations Neck: Trachea Midline, Thyroid Normal Size and Texture Lungs: Diminished, - - coarse breath sounds Cardiovascular: Regular rate, Regular Rhythm, Normal S1, Normal S2, No murmurs Abdomen: Bowel Sounds Present, Soft, Non Tender, Non-Distended, No Hepato-splenomegaly Extremities: No edema, No Calf Tenderness Skin: No rashes, No breakdown Musculoskeletal: No Tenderness to Palpation of Joints or Extremities, No Muscle Wasting Lymphatic: No Cervical, Supraclavicular, or Inguinal Adenopathy, Cervical Adenopathy Neurological: - - MS 5/5 bilateral LE. DTRs intact. Psych/Mental Status: Normal Affect, Appropriate Microbiology Past 72 Hours 11/19/18 19:55 Stool Stool Occult Blood (JEANNE) - Final Laboratory Results 11/19/18 18:45: WBC 5.3, RBC 2.71 L, Hgb 7.0 L, Hct 25.1 L, MCV 92.6, MCH 25.8 L, MCHC 27.9 L, RDW 16.3 H, RDW Differential 53.5 H, Plt Count 219, MPV 10.5, Immature Gran % (Auto) 0.000, Neut % (Auto) 84.3 H, Lymph % (Auto) 8.3 L, [place] % (Auto) 7.4, Eos % (Auto) 0.0, Baso % (Auto) 0.0, Absolute Neuts (auto) 4.5, Absolute Lymphs (auto) 0.44 L, Total Counted Not Reportable, Differential Comment SCANNED 11/19/18 18:45: PT 26.5 H, INR 2.4, APTT 29.5 11/19/18 18:45: Sodium 149 H, Potassium 5.0, Chloride 99, Carbon Dioxide 44.0 H, Anion Gap 6, BUN 97 H, Creatinine 2.21 H, Estim Creat Clear Calc 28.93, Est GFR (MDRD) Af Amer 38 L, Est GFR (MDRD) Non-Af 31 L, BUN/Creatinine Ratio 43.9 H, Glucose 215 H, Calcium 8.9, Total Bilirubin 0.40, AST 43 H, ALT 18, Alkaline Phosphatase 92, Troponin I 0.408 H, Total Protein 7.6, Albumin 2.9 L, Globulin 4.7 H, Albumin/Globulin Ratio 0.6 L 11/19/18 18:45: Lactic Acid 1.2 11/19/18 18:45: B-Natriuretic Peptide 343.0 H 11/19/18 18:52: Specimen Type ART, Sample Site R Radial, pH 7.33 L, Bicarbonate Actual 46.8 H, POC Total CO2 50, Base Excess 21 H, O2 Saturation 98, ABG pCO2 89.1 H*, ABG pO2 122 H, Cristian Test POS, O2 Delivery Device Nasal Can, Liter Flow 4.0, Blood Gas Notified Whom ED , Blood Gas Notified Time 1847 11/19/18 19:27: Blood Type Cancelled, A1 Antigen Typing Cancelled, Rho(D) Type Cancelled, Antibody Screen Cancelled 11/19/18 20:14: Digoxin 1.36 11/19/18 20:14: Blood Type O POSITIVE, Antibody Screen NEGATIVE, Crossmatch See Detail 11/19/18 21:03: Urine Color Yellow, Urine Clarity Sl. Cloudy, Urine pH 5.0, Ur Specific [place] 1.010, Urine Protein Negative, Urine Glucose (UA) Normal, Urine Ketones Negative, Urine Occult Blood Negative, Urine Nitrite Negative, Urine Bilirubin Negative, Urine Urobilinogen Normal, Ur Leukocyte Esterase 500 H, Urine RBC 0 SEEN, Urine WBC 5-10 SEEN, Ur Squamous Epith Cells 0-5 SEEN, Urine Bacteria 4+, Urine Mucus 1+ 11/19/18 21:51: Specimen Type ART, Sample Site L Radial, pH 7.35, Bicarbonate Actual 44.0 H, POC Total CO2 46, Base Excess 18 H, O2 Saturation 95, O2 % 45, ABG pCO2 80.1 H*, ABG pO2 88, Cristian Test POS, Respiration Rate 12, O2 Delivery Device Bi / C PAP, EPAP 6, IPAP 14, Blood Gas Notified Whom ED , Blood Gas Notified Time 214411/20/18 00:35: Vitamin B12 Pending 11/20/18 00:35: Sodium 150 H, Potassium 4.8, Chloride 108 H, Carbon Dioxide 40.0 H, Anion Gap 2 L, BUN 88 H, Creatinine 1.73 H, Estim Creat Clear Calc 35.01, Est GFR (MDRD) Af Amer 50 L, Est GFR (MDRD) Non-Af 42 L, BUN/Creatinine Ratio 50.9 H, Glucose 98, Calcium 8.2 L, Phosphorus 3.8, Magnesium 2.5 11/20/18 00:35: Iron 36 L, TIBC 218 L, Iron Saturation 16.5, Ferritin 269, Folate 24.70 11/20/18 00:35: Troponin I 0.348 H 11/20/18 01:15: POC Glucose 84 11/20/18 02:22: Troponin I 0.325 H 11/20/18 04:50: WBC 4.3 L, RBC 2.92 L, Hgb 8.0 L, Hct 27.3 L, MCV 93.5, MCH 27.4, MCHC 29.3 L, RDW 15.5 H, RDW Differential 49.6 H, Plt Count 135 L, MPV 9.7 11/20/18 04:50: Sodium 155 H, Potassium 4.6, Chloride 109 H, Carbon Dioxide 41.0 H, Anion Gap 5, BUN 81 H, Creatinine 1.61 H, Estim Creat Clear Calc 38.95, Est GFR (MDRD) Af Amer 55 L, Est GFR (MDRD) Non-Af 45 L, BUN/Creatinine Ratio 50.3 H, Glucose 106, Calcium 8.5 11/20/18 05:17: POC Glucose 119 H Current Medications Acetaminophen (Tylenol) 650 mg PO Q6H PRN PRN PRN Reason: PAIN Albuterol Sulfate (Ventolin Aerosols) 2.5 mg INHALATION Q2H PRN PRN PRN Reason: sob/wheezing Albuterol/Ipratropium (Duoneb) 3 ml INHALATION Q4H.RT SHARA Last Admin: 11/20/18 06:52 Dose: 3 ml Chlorhexidine Gluconate () 1 each TOPICAL DAILY [facility] Dextrose (D50w Syringe) 0 gm IV X1 PRN; Protocol PRN Reason: Hypoglycemia Glucagon () 1 mg IM .X1 PRN PRN Reason: Hypoglycemia Pantoprazole Sodium 40 mg/ (Sodium Chloride) 110 mls @ 330 mls/hr IV Q12 [facility] Last Admin: 11/19/18 23:05 Dose: 330 mls/hr Ceftriaxone Sodium (Rocephin) 1 gm in 50 mls @ 100 mls/hr IV Q24@2200 SHARA Sodium Chloride () 250 mls @ 15 mls/hr IV .[id number] PRN PRN Reason: SALINE FLUSH Sodium Chloride () 250 mls @ 15 mls/hr IV .[id number] PRN PRN Reason: SALINE FLUSH Last Admin: 11/19/18 23:59 Dose: 15 mls/hr Dextrose () 1,000 mls @ 50 mls/hr IV .Q20H SHARA Last Admin: 11/20/18 06:40 Dose: 50 mls/hr Insulin Human Lispro (Humalog Kwikpen (Bkc)) 0 unit SQ Q4 [facility]; Protocol Last Admin: 11/20/18 05:18 Dose: Not Given Magnesium Hydroxide (Milk Of Magnesia) 30 ml PO DAILY PRN PRN PRN Reason: Constipation Methylprednisolone (Solu-Medrol) 40 mg IV Q8 [facility] Last Admin: 11/20/18 05:18 Dose: 40 mg Sodium Chloride () 5 - 15 ml IV UD PRN PRN Reason: SALINE FLUSH Medical Necessity - Tobacco Use Smoking Status: Former smoker Assessment/Plan All Active Problems (Last Reviewed 11/19/18 @ 21:52 by Alpesh Caro MD) Elevated troponin (Acute) Acute on chronic respiratory failure with hypercapnia (Acute) Severe dehydration (Acute) Acute encephalopathy (Acute) RAFAEL (acute kidney injury) (Acute) COPD exacerbation (Acute) Acute on chronic respiratory failure with hypoxia and hypercapnia (Acute) Confusion (Resolved) Acute on chronic systolic (congestive) heart failure (Acute) Pneumothorax (Resolved) Pneumothorax on left (Resolved) 1. Acute hypercapnic respiratory failure. improved 2/2 COPD +/- bronchitis on Abx, BDs, Solu-Medrol, CTX currently off BiPAP. 2. Hypovolemic hypotension resolved 2/2 dehydration received IVF 3. RAFAEL improved baseline Cr 1.3 Monitor lasix, spironolactone on hold 4. Elevated troponin suspect demand ischemia 2/2 above in patient with cardiomyopathy last echo from 2014 showed EF of 30% Echo ordered consider stress once medically stable 5. Anemia, iron deficient improved s/p 2 units PRBCs Hemoccult pending. start Venofer 6. Hypernatremia on D5W monitor likely d/t hyponatremia 7. pafib on coreg Eliquis given the anemia 8. DVT proph: SCDs Code Visit Inpatient E&M: 06150 Subs Hosp L3
--- NOTE | 2018-11-20 10:23 | PN_ITS ---
Patient Problems: Active and Suspected Problems (Last Reviewed 11/19/18 @ 21:52 by Alpesh Caro MD) Acute on chronic respiratory failure with hypercapnia (Acute) Severe dehydration (Acute) Acute encephalopathy (Acute) RAFAEL (acute kidney injury) (Acute) Subjective: still with back pain. began acutely--atraumatic. taken off BiPAP today. Vitals/I&O's: Vital Signs Temp Pulse Resp BP Pulse Ox 37.4 C H 95 26 H 117/76 100 11/20/18 08:00 11/20/18 08:00 11/20/18 08:00 11/20/18 08:00 11/20/18 08:00 Oxygen Flow Rate (L/min) 5 Oxygen Delivery Method Nasal Cannula Weight: 64.5 kg Body Mass Index (BMI) 19.1 Intake and Output for Last 24 Hours 11/18/18 11/19/18 11/20/18 23:59 23:59 23:59 Intake Total 0 / 0 1728 / 1728 Output Total 750 / 750 Balance 0 / 0 978 / 978 General: Alert, No apparent distress HEENT: Atraumatic, Normocephalic Oral: Moist Mucosa, No Gingival or Mucosal Lesions/ Ulcerations Neck: Trachea Midline, Thyroid Normal Size and Texture Lungs: Diminished, - - coarse breath sounds Cardiovascular: Regular rate, Regular Rhythm, Normal S1, Normal S2, No murmurs Abdomen: Bowel Sounds Present, Soft, Non Tender, Non-Distended, No Hepato- splenomegaly Extremities: No edema, No Calf Tenderness Skin: No rashes, No breakdown Musculoskeletal: No Tenderness to Palpation of Joints or Extremities, No Muscle Wasting Lymphatic: No Cervical, Supraclavicular, or Inguinal Adenopathy, Cervical Adenopathy Neurological: - - MS 5/5 bilateral LE. DTRs intact. Psych/Mental Status: Normal Affect, Appropriate Microbiology Past 72 Hours 11/19/18 19:55 Stool Stool Occult Blood (JEANNE) - Final Laboratory Results 11/19/18 18:45: WBC 5.3, RBC 2.71 L, Hgb 7.0 L, Hct 25.1 L, MCV 92.6, MCH 25.8 L , MCHC 27.9 L, RDW 16.3 H, RDW Differential 53.5 H, Plt Count 219, MPV 10.5, Immature Gran % (Auto) 0.000, Neut % (Auto) 84.3 H, Lymph % (Auto) 8.3 L, [place] % (Auto) 7.4, Eos % (Auto) 0.0, Baso % (Auto) 0.0, Absolute Neuts (auto) 4.5, Absolute Lymphs (auto) 0.44 L, Total Counted Not Reportable, Differential Comment SCANNED 11/19/18 18:45: PT 26.5 H, INR 2.4, APTT 29.5 11/19/18 18:45: Sodium 149 H, Potassium 5.0, Chloride 99, Carbon Dioxide 44.0 H, Anion Gap 6, BUN 97 H, Creatinine 2.21 H, Estim Creat Clear Calc 28.93, Est GFR (MDRD) Af Amer 38 L, Est GFR (MDRD) Non-Af 31 L, BUN/Creatinine Ratio 43.9 H, Glucose 215 H, Calcium 8.9, Total Bilirubin 0.40, AST 43 H, ALT 18, Alkaline Phosphatase 92, Troponin I 0.408 H, Total Protein 7.6, Albumin 2.9 L, Globulin 4.7 H, Albumin/Globulin Ratio 0.6 L 11/19/18 18:45: Lactic Acid 1.2 11/19/18 18:45: B-Natriuretic Peptide 343.0 H 11/19/18 18:52: Specimen Type ART, Sample Site R Radial, pH 7.33 L, Bicarbonate Actual 46.8 H, POC Total CO2 50, Base Excess 21 H, O2 Saturation 98, ABG pCO2 89.1 H*, ABG pO2 122 H, Cristian Test POS, O2 Delivery Device Nasal Can, Liter Flow 4.0, Blood Gas Notified Whom ED , Blood Gas Notified Time 1847 11/19/18 19:27: Blood Type Cancelled, A1 Antigen Typing Cancelled, Rho(D) Type Cancelled, Antibody Screen Cancelled 11/19/18 20:14: Digoxin 1.36 11/19/18 20:14: Blood Type O POSITIVE, Antibody Screen NEGATIVE, Crossmatch See Detail 11/19/18 21:03: Urine Color Yellow, Urine Clarity Sl. Cloudy, Urine pH 5.0, Ur Specific [place] 1.010, Urine Protein Negative, Urine Glucose (UA) Normal, Urine Ketones Negative, Urine Occult Blood Negative, Urine Nitrite Negative, Urine Bilirubin Negative, Urine Urobilinogen Normal, Ur Leukocyte Esterase 500 H, Urine RBC 0 SEEN, Urine WBC 5-10 SEEN, Ur Squamous Epith Cells 0-5 SEEN, Urine Bacteria 4+, Urine Mucus 1+ 11/19/18 21:51: Specimen Type ART, Sample Site L Radial, pH 7.35, Bicarbonate Actual 44.0 H, POC Total CO2 46, Base Excess 18 H, O2 Saturation 95, O2 % 45, ABG pCO2 80.1 H*, ABG pO2 88, Cristian Test POS, Respiration Rate 12, O2 Delivery Device Bi / C PAP, EPAP 6, IPAP 14, Blood Gas Notified Whom ED , Blood Gas Notified Time 214411/20/18 00:35: Vitamin B12 Pending 11/20/18 00:35: Sodium 150 H, Potassium 4.8, Chloride 108 H, Carbon Dioxide 40.0 H, Anion Gap 2 L, BUN 88 H, Creatinine 1.73 H, Estim Creat Clear Calc 35.01, Est GFR (MDRD) Af Amer 50 L, Est GFR (MDRD) Non-Af 42 L, BUN/Creatinine Ratio 50.9 H , Glucose 98, Calcium 8.2 L, Phosphorus 3.8, Magnesium 2.5 11/20/18 00:35: Iron 36 L, TIBC 218 L, Iron Saturation 16.5, Ferritin 269, Folate 24.70 11/20/18 00:35: Troponin I 0.348 H 11/20/18 01:15: POC Glucose 84 11/20/18 02:22: Troponin I 0.325 H 11/20/18 04:50: WBC 4.3 L, RBC 2.92 L, Hgb 8.0 L, Hct 27.3 L, MCV 93.5, MCH 27.4, MCHC 29.3 L, RDW 15.5 H, RDW Differential 49.6 H, Plt Count 135 L, MPV 9.7 11/20/18 04:50: Sodium 155 H, Potassium 4.6, Chloride 109 H, Carbon Dioxide 41.0 H, Anion Gap 5, BUN 81 H, Creatinine 1.61 H, Estim Creat Clear Calc 38.95, Est GFR (MDRD) Af Amer 55 L, Est GFR (MDRD) Non-Af 45 L, BUN/Creatinine Ratio 50.3 H , Glucose 106, Calcium 8.5 11/20/18 05:17: POC Glucose 119 H Current Medications Acetaminophen (Tylenol) 650 mg PO Q6H PRN PRN PRN Reason: PAIN Albuterol Sulfate (Ventolin Aerosols) 2.5 mg INHALATION Q2H PRN PRN PRN Reason: sob/wheezing Albuterol/Ipratropium (Duoneb) 3 ml INHALATION Q4H.RT SHARA Last Admin: 11/20/18 06:52 Dose: 3 ml Chlorhexidine Gluconate () 1 each TOPICAL DAILY [facility] Dextrose (D50w Syringe) 0 gm IV X1 PRN; Protocol PRN Reason: Hypoglycemia Glucagon () 1 mg IM .X1 PRN PRN Reason: Hypoglycemia Pantoprazole Sodium 40 mg/ (Sodium Chloride) 110 mls @ 330 mls/hr IV Q12 [facility] Last Admin: 11/19/18 23:05 Dose: 330 mls/hr Ceftriaxone Sodium (Rocephin) 1 gm in 50 mls @ 100 mls/hr IV Q24@2200 SHARA Sodium Chloride () 250 mls @ 15 mls/hr IV .[id number] PRN PRN Reason: SALINE FLUSH Sodium Chloride () 250 mls @ 15 mls/hr IV .[id number] PRN PRN Reason: SALINE FLUSH Last Admin: 11/19/18 23:59 Dose: 15 mls/hr Dextrose () 1,000 mls @ 50 mls/hr IV .Q20H SHARA Last Admin: 11/20/18 06:40 Dose: 50 mls/hr Insulin Human Lispro (Humalog Kwikpen (Bkc)) 0 unit SQ Q4 [facility]; Protocol Last Admin: 11/20/18 05:18 Dose: Not Given Magnesium Hydroxide (Milk Of Magnesia) 30 ml PO DAILY PRN PRN PRN Reason: Constipation Methylprednisolone (Solu-Medrol) 40 mg IV Q8 [facility] Last Admin: 11/20/18 05:18 Dose: 40 mg Sodium Chloride () 5 - 15 ml IV UD PRN PRN Reason: SALINE FLUSH Medical Necessity - Tobacco Use Smoking Status: Former smoker Assessment/Plan All Active Problems (Last Reviewed 11/19/18 @ 21:52 by Alpesh Caro MD) Elevated troponin (Acute) Acute on chronic respiratory failure with hypercapnia (Acute) Severe dehydration (Acute) Acute encephalopathy (Acute) RAFAEL (acute kidney injury) (Acute) COPD exacerbation (Acute) Acute on chronic respiratory failure with hypoxia and hypercapnia (Acute) Confusion (Resolved) Acute on chronic systolic (congestive) heart failure (Acute) Pneumothorax (Resolved) Pneumothorax on left (Resolved) 1. Acute hypercapnic respiratory failure. * improved * 2/2 COPD +/- bronchitis * on Abx, BDs, Solu-Medrol, CTX * currently off BiPAP. 2. Hypovolemic hypotension * resolved * 2/2 dehydration * received IVF 3. RAFAEL * improved * baseline Cr 1.3 * Monitor * lasix, spironolactone on hold 4. Elevated troponin * suspect demand ischemia 2/2 above in patient with cardiomyopathy * last echo from 2014 showed EF of 30% * Echo ordered * consider stress once medically stable 5. Anemia, iron deficient * improved s/p 2 units PRBCs * Hemoccult pending. * start Venofer 6. Hypernatremia * on D5W * monitor * likely d/t hyponatremia 7. pafib * on coreg * Eliquis given the anemia 8. DVT proph: SCDs Code Visit Inpatient E&M: [id number] Subs Hosp L3
[2018-11-20] MEDS: Acetaminophen 325 MG Tablet 650 MG PO ×2 (10:32→19:55)
[2018-11-20 11:50] LABS: Bedside Glucose 134 mg/dL (70-110)
[2018-11-20 12:14] LABS: Anion Gap 3 (5-15); BUN 82 mg/dL (7-18); BUN/Creat Ratio 50.9 RATIO (10-20); Calcium,Total 8.5 mg/dL (8.5-10.1); Chloride 108 mmol/L (98-107); Creatinine, Serum 1.61 mg/dL (0.70-1.30); EST Glomerular Filtration Rate 45 mL/min (>60); Est Glom Filt Rate - Afr Amer 55 mL/min (>60); Estimated Creatinine Clearance 38.95 ml/min; Glucose 142 mg/dL (74-106); Potassium 4.3 mmol/L (3.5-5.1); Sodium Level 151 mmol/L (136-145)
[2018-11-20] MEDS: CHLORHEXIDINE GLUC 2% CLOTH 1 EACH TOWELETTE TOPICAL (14:40)
[2018-11-20 17:45] LABS: Bedside Glucose 139 mg/dL (70-110)
--- NOTE | 2018-11-20 20:17 | CPS ---
bipap settings changed to home settings of 08/11
[2018-11-20] MEDS: Ceftriaxone 1 GM/50 ML BAG IV (21:00)
[2018-11-20] MEDS: 0.9% NaCl Peripheral Flush Adult/Peds IV (21:01)
[2018-11-21] VITALS (25 sets, daily range): BP systolic 103–135; BP diastolic 74–92; PULSE 61–111; RESP 12–24; TEMP 36.7–37.3; O2SAT 98–100
[2018-11-21] MEDS: Insulin Lispro 100 UNIT/ML INSULN.PEN SQ ×3 (00:03→11:21)
[2018-11-21 00:10] LABS: Bedside Glucose 152 mg/dL (70-110)
[2018-11-21] MEDS: Ipratropium/Albuterol Sulfate 3 ML AMPUL.NEB INHALATION ×5 (03:28→19:02)
[2018-11-21 04:14] LABS: International Normalized Ratio 1.8; Prothrombin Time (Protime)PT. 20.7 SECONDS (11.7-14.9)
[2018-11-21 04:20] LABS: Anion Gap 7 (5-15); BUN 81 mg/dL (7-18); BUN/Creat Ratio 50.6 RATIO (10-20); Calcium,Total 8.7 mg/dL (8.5-10.1); Chloride 103 mmol/L (98-107); EST Glomerular Filtration Rate 46 mL/min (>60); Est Glom Filt Rate - Afr Amer 55 mL/min (>60); Glucose 158 mg/dL (74-106); Magnesium 2.6 mg/dL (1.6-2.6); Potassium 4.8 mmol/L (3.5-5.1); Sodium Level 148 mmol/L (136-145)
[2018-11-21 04:30] LABS: Absolute Lymphocyte Count 0.33 X10^3/ul (0.83-4.51); Absolute Neutrophil Count 4.1 X10^3/uL (2.0-7.7); Hematocrit 27.1 % (40-54); Hemoglobin 7.9 g/dl (13.0-16.5); Lymphocyte # 0.33 X10^3/ul (4.0); Lymphocyte % 7.2 % (19-41); Mean Corp Hgb Conc 29.2 g/gl (32-36); Mean Corpuscular Hgb 27.1 pg (27.0-32.0); Mean Corpuscular Volume 93.1 fL (80-94); Monocyte% 2.2 % (0-10); Neutrophil # 4.13 X10^3/uL (2.7-7.7); Neutrophil % 90.6 % (47-70); Platelet Count 156 K/mm3 (150-450); RBC Distribution Width CV 15.7 % (11.6-14.6); RBC Distribution Width SD 51.3 fl (35.1-43.9); Red Blood Count 2.91 M/mm3 (4.6-6.2); White Blood Count 4.6 K/mm3 (4.4-11.0)
[2018-11-21 04:42] LABS: Differential Indicated SCAN CRITERIA MET; POSITIVE COUNT NO; POSITIVE DIFFERENTIAL YES; POSITIVE MORPHOLOGY NO
[2018-11-21 04:43] LABS: Differential Comment SCANNED; Hypochromasia 2+; Ovalocyte 2+; Target Cells 1+
[2018-11-21 04:47] LABS: Phosphorus 3.3 mg/dL (2.5-4.9)
[2018-11-21] MEDS: 0.9% NaCl Peripheral Flush Adult/Peds IV ×2 (05:34→18:28)
[2018-11-21 05:52] LABS: Bedside Glucose 157 mg/dL (70-110)
--- NOTE | 2018-11-21 06:54 | PCM.PN.INT ---
Subjective: The patient was seen and examined at the bedside this morning. Events from the last 24 hours have been reviewed. The patient is currently afebrile, hemodynamically stable and maintaining appropriate oxygen saturations on 3 L/min via nasal cannula. Patient is currently overall net +1.8 L for the admission. He has been transfused 2 units of packed red blood cells to date. The patient does report residual shortness of breath, but states that he utilizes 3 L/min at his baseline in his home environment. He denies the presence of a cough. Objective: The patient's most recent lab work, culture data and imaging studies have all been personally reviewed. Surface echocardiogram from February 2017 revealed a moderately dilated LV with severe global LV systolic dysfunction and an ejection fraction of 20%. There was also evidence of mild global RV systolic dysfunction with a right ventricular systolic pressure estimated to be 60 mmHg. Polysomnogram completed February 2017 revealed evidence of severe obstructive sleep apnea for which it was recommended that the patient be placed on bilevel therapy with a pressure support of 22/16 with a 1 L/min supplemental oxygen bleed in. Stool for occult blood was negative. Blood cultures are pending. Urine culture revealed the presence of a gram-negative savita. General: Alert, Cooperative, No apparent distress HEENT: Atraumatic, PERRLA, Normocephalic Oral: No Gingival or Mucosal Lesions/ Ulcerations Neck: Supple, No Nodes, Trachea Midline Lungs: No rhonchi, No rales, Diminished, Wheezes Cardiovascular: Normal S1, Normal S2, Irregular Rate, Murmur Abdomen: Bowel Sounds Present, Soft, Non Tender Extremities: No cyanosis, No edema, Clubbing Skin: No breakdown Musculoskeletal: Cachexia Lymphatic: No Cervical, Supraclavicular, or Inguinal Adenopathy Neurological: Cranial nerves II-XII grossly intact, Neuro grossly intact Psych/Mental Status: Normal Affect, Appropriate Vital Signs Temp Pulse Resp BP Pulse Ox 37.1 C 94 17 113/82 H 100 11/21/18 06:00 11/21/18 06:00 11/21/18 06:00 11/21/18 06:00 11/21/18 06:00 Oxygen Flow Rate (L/min) 3 Oxygen Delivery Method Nasal Cannula Weight: 145 lb 8.081 oz Body Mass Index (BMI) 19.1 Intake and Output for Last 24 Hours 11/19/18 11/20/1818 23:59 23:59 23:59 Intake Total 0 / 0 3331 / 3331 522 / 522 Output Total 1600 / 1600 450 / 450 Balance 0 / 0 1731 / 1731 72 / 72 Labs (Last 48 Hours) 11/19/18 11/19/18 11/19/18 18:45 18:45 18:45 WBC 5.3 RBC 2.71 L Hgb 7.0 L Hct 25.1 L MCV 92.6 MCH 25.8 L MCHC 27.9 L RDW 16.3 H RDW Differential 53.5 H Plt Count 219 MPV 10.5 Immature Gran % (Auto) 0.000 Neut % (Auto) 84.3 H Lymph % (Auto) 8.3 L [place] % (Auto) 7.4 Eos % (Auto) 0.0 Baso % (Auto) 0.0 Absolute Neuts (auto) 4.5 Absolute Lymphs (auto) 0.44 L Total Counted Not Reportable Differential Comment SCANNED Hypochromasia Target Cells Ovalocytes PT 26.5 H INR 2.4 APTT 29.5 Specimen Type Sample Site pH Bicarbonate Actual POC Total CO2 Base Excess O2 Saturation O2 % ABG pCO2 ABG pO2 Cristian Test Respiration Rate O2 Delivery Device Liter Flow EPAP IPAP Blood Gas Notified Whom Blood Gas Notified Time Sodium 149 H Potassium 5.0 Chloride 99 Carbon Dioxide 44.0 H Anion Gap 6 BUN 97 H Creatinine 2.21 H Estim Creat Clear Calc 28.93 Est GFR (MDRD) Af Amer 38 L Est GFR (MDRD) Non-Af 31 L BUN/Creatinine Ratio 43.9 H Glucose 215 H Lactic Acid Calcium 8.9 Phosphorus Magnesium Iron TIBC Iron Saturation Ferritin Total Bilirubin 0.40 AST 43 H ALT 18 Alkaline Phosphatase 92 Troponin I 0.408 H B-Natriuretic Peptide Total Protein 7.6 Albumin 2.9 L Globulin 4.7 H Albumin/Globulin Ratio 0.6 L Vitamin B12 Folate Urine Color Urine Clarity Urine pH Ur Specific [place] Urine Protein Urine Glucose (UA) Urine Ketones Urine Occult Blood Urine Nitrite Urine Bilirubin Urine Urobilinogen Ur Leukocyte Esterase Urine RBC Urine WBC Ur Squamous Epith Cells Urine Bacteria Urine Mucus Digoxin POC Glucose Blood Type A1 Antigen Typing Rho(D) Type Antibody Screen Crossmatch 11/19/18 11/19/18 11/19/18 18:45 18:45 18:52 WBC RBC Hgb Hct MCV MCH MCHC RDW RDW Differential Plt Count MPV Immature Gran % (Auto) Neut % (Auto) Lymph % (Auto) [place] % (Auto) Eos % (Auto) Baso % (Auto) Absolute Neuts (auto) Absolute Lymphs (auto) Total Counted Differential Comment Hypochromasia Target Cells Ovalocytes PT INR APTT Specimen Type ART Sample Site R Radial pH 7.33 L Bicarbonate Actual 46.8 H POC Total CO2 50 Base Excess 21 H O2 Saturation 98 O2 % ABG pCO2 89.1 H* ABG pO2 122 H Cristian Test POS Respiration Rate O2 Delivery Device Nasal Can Liter Flow 4.0 EPAP IPAP Blood Gas Notified Whom ED Blood Gas Notified Time 1847 Sodium Potassium Chloride Carbon Dioxide Anion Gap BUN Creatinine Estim Creat Clear Calc Est GFR (MDRD) Af Amer Est GFR (MDRD) Non-Af BUN/Creatinine Ratio Glucose Lactic Acid 1.2 Calcium Phosphorus Magnesium Iron TIBC Iron Saturation Ferritin Total Bilirubin AST ALT Alkaline Phosphatase Troponin I B-Natriuretic Peptide 343.0 H Total Protein Albumin Globulin Albumin/Globulin Ratio Vitamin B12 Folate Urine Color Urine Clarity Urine pH Ur Specific [place] Urine Protein Urine Glucose (UA) Urine Ketones Urine Occult Blood Urine Nitrite Urine Bilirubin Urine Urobilinogen Ur Leukocyte Esterase Urine RBC Urine WBC Ur Squamous Epith Cells Urine Bacteria Urine Mucus Digoxin POC Glucose Blood Type A1 Antigen Typing Rho(D) Type Antibody Screen Crossmatch 11/19/18 11/19/18 11/19/18 19:27 20:14 20:14 WBC RBC Hgb Hct MCV MCH MCHC RDW RDW Differential Plt Count MPV Immature Gran % (Auto) Neut % (Auto) Lymph % (Auto) [place] % (Auto) Eos % (Auto) Baso % (Auto) Absolute Neuts (auto) Absolute Lymphs (auto) Total Counted Differential Comment Hypochromasia Target Cells Ovalocytes PT INR APTT Specimen Type Sample Site pH Bicarbonate Actual POC Total CO2 Base Excess O2 Saturation O2 % ABG pCO2 ABG pO2 Cristian Test Respiration Rate O2 Delivery Device Liter Flow EPAP IPAP Blood Gas Notified Whom Blood Gas Notified Time Sodium Potassium Chloride Carbon Dioxide Anion Gap BUN Creatinine Estim Creat Clear Calc Est GFR (MDRD) Af Amer Est GFR (MDRD) Non-Af BUN/Creatinine Ratio Glucose Lactic Acid Calcium Phosphorus Magnesium Iron TIBC Iron Saturation Ferritin Total Bilirubin AST ALT Alkaline Phosphatase Troponin I B-Natriuretic Peptide Total Protein Albumin Globulin Albumin/Globulin Ratio Vitamin B12 Folate Urine Color Urine Clarity Urine pH Ur Specific [place] Urine Protein Urine Glucose (UA) Urine Ketones Urine Occult Blood Urine Nitrite Urine Bilirubin Urine Urobilinogen Ur Leukocyte Esterase Urine RBC Urine WBC Ur Squamous Epith Cells Urine Bacteria Urine Mucus Digoxin 1.36 POC Glucose Blood Type Cancelled O POSITIVE A1 Antigen Typing Cancelled Rho(D) Type Cancelled Antibody Screen Cancelled NEGATIVE Crossmatch See Detail 11/19/18 11/19/18 11/20/18 21:03 21:51 00:35 WBC RBC Hgb Hct MCV MCH MCHC RDW RDW Differential Plt Count MPV Immature Gran % (Auto) Neut % (Auto) Lymph % (Auto) [place] % (Auto) Eos % (Auto) Baso % (Auto) Absolute Neuts (auto) Absolute Lymphs (auto) Total Counted Differential Comment Hypochromasia Target Cells Ovalocytes PT INR APTT Specimen Type ART Sample Site L Radial pH 7.35 Bicarbonate Actual 44.0 H POC Total CO2 46 Base Excess 18 H O2 Saturation 95 O2 % 45 ABG pCO2 80.1 H* ABG pO2 88 Cristian Test POS Respiration Rate 12 O2 Delivery Device Bi / C PAP Liter Flow EPAP 6 IPAP 14 Blood Gas Notified Whom ED Blood Gas Notified Time 2145 Sodium Potassium Chloride Carbon Dioxide Anion Gap BUN Creatinine Estim Creat Clear Calc Est GFR (MDRD) Af Amer Est GFR (MDRD) Non-Af BUN/Creatinine Ratio Glucose Lactic Acid Calcium Phosphorus Magnesium Iron TIBC Iron Saturation Ferritin Total Bilirubin AST ALT Alkaline Phosphatase Troponin I B-Natriuretic Peptide Total Protein Albumin Globulin Albumin/Globulin Ratio Vitamin B12 Pending Folate Urine Color Yellow Urine Clarity Sl. Cloudy Urine pH 5.0 Ur Specific [place] 1.010 Urine Protein Negative Urine Glucose (UA) Normal Urine Ketones Negative Urine Occult Blood Negative Urine Nitrite Negative Urine Bilirubin Negative Urine Urobilinogen Normal Ur Leukocyte Esterase 500 H Urine RBC 0 SEEN Urine WBC 5-10 SEEN Ur Squamous Epith Cells 0-5 SEEN Urine Bacteria 4+ Urine Mucus 1+ Digoxin POC Glucose Blood Type A1 Antigen Typing Rho(D) Type Antibody Screen Crossmatch 11/20/18 11/20/18 11/20/18 00:35 00:35 00:35 WBC RBC Hgb Hct MCV MCH MCHC RDW RDW Differential Plt Count MPV Immature Gran % (Auto) Neut % (Auto) Lymph % (Auto) [place] % (Auto) Eos % (Auto) Baso % (Auto) Absolute Neuts (auto) Absolute Lymphs (auto) Total Counted Differential Comment Hypochromasia Target Cells Ovalocytes PT INR APTT Specimen Type Sample Site pH Bicarbonate Actual POC Total CO2 Base Excess O2 Saturation O2 % ABG pCO2 ABG pO2 Cristian Test Respiration Rate O2 Delivery Device Liter Flow EPAP IPAP Blood Gas Notified Whom Blood Gas Notified Time Sodium 150 H Potassium 4.8 Chloride 108 H Carbon Dioxide 40.0 H Anion Gap 2 L BUN 88 H Creatinine 1.73 H Estim Creat Clear Calc 35.01 Est GFR (MDRD) Af Amer 50 L Est GFR (MDRD) Non-Af 42 L BUN/Creatinine Ratio 50.9 H Glucose 98 Lactic Acid Calcium 8.2 L Phosphorus 3.8 Magnesium 2.5 Iron 36 L TIBC 218 L Iron Saturation 16.5 Ferritin 269 Total Bilirubin AST ALT Alkaline Phosphatase Troponin I 0.348 H B-Natriuretic Peptide Total Protein Albumin Globulin Albumin/Globulin Ratio Vitamin B12 Folate 24.70 Urine Color Urine Clarity Urine pH Ur Specific [place] Urine Protein Urine Glucose (UA) Urine Ketones Urine Occult Blood Urine Nitrite Urine Bilirubin Urine Urobilinogen Ur Leukocyte Esterase Urine RBC Urine WBC Ur Squamous Epith Cells Urine Bacteria Urine Mucus Digoxin POC Glucose Blood Type A1 Antigen Typing Rho(D) Type Antibody Screen Crossmatch 11/20/18 11/20/18 11/20/18 01:15 02:22 04:50 WBC 4.3 L RBC 2.92 L Hgb 8.0 L Hct 27.3 L MCV 93.5 MCH 27.4 MCHC 29.3 L RDW 15.5 H RDW Differential 49.6 H Plt Count 135 L MPV 9.7 Immature Gran % (Auto) Neut % (Auto) Lymph % (Auto) [place] % (Auto) Eos % (Auto) Baso % (Auto) Absolute Neuts (auto) Absolute Lymphs (auto) Total Counted Differential Comment Hypochromasia Target Cells Ovalocytes PT INR APTT Specimen Type Sample Site pH Bicarbonate Actual POC Total CO2 Base Excess O2 Saturation O2 % ABG pCO2 ABG pO2 Cristian Test Respiration Rate O2 Delivery Device Liter Flow EPAP IPAP Blood Gas Notified Whom Blood Gas Notified Time Sodium Potassium Chloride Carbon Dioxide Anion Gap BUN Creatinine Estim Creat Clear Calc Est GFR (MDRD) Af Amer Est GFR (MDRD) Non-Af BUN/Creatinine Ratio Glucose Lactic Acid Calcium Phosphorus Magnesium Iron TIBC Iron Saturation Ferritin Total Bilirubin AST ALT Alkaline Phosphatase Troponin I 0.325 H B-Natriuretic Peptide Total Protein Albumin Globulin Albumin/Globulin Ratio Vitamin B12 Folate Urine Color Urine Clarity Urine pH Ur Specific [place] Urine Protein Urine Glucose (UA) Urine Ketones Urine Occult Blood Urine Nitrite Urine Bilirubin Urine Urobilinogen Ur Leukocyte Esterase Urine RBC Urine WBC Ur Squamous Epith Cells Urine Bacteria Urine Mucus Digoxin POC Glucose 84 Blood Type A1 Antigen Typing Rho(D) Type Antibody Screen Crossmatch 11/20/18 11/20/18 11/20/18 04:50 05:17 11:41 WBC RBC Hgb Hct MCV MCH MCHC RDW RDW Differential Plt Count MPV Immature Gran % (Auto) Neut % (Auto) Lymph % (Auto) [place] % (Auto) Eos % (Auto) Baso % (Auto) Absolute Neuts (auto) Absolute Lymphs (auto) Total Counted Differential Comment Hypochromasia Target Cells Ovalocytes PT INR APTT Specimen Type Sample Site pH Bicarbonate Actual POC Total CO2 Base Excess O2 Saturation O2 % ABG pCO2 ABG pO2 Cristian Test Respiration Rate O2 Delivery Device Liter Flow EPAP IPAP Blood Gas Notified Whom Blood Gas Notified Time Sodium 155 H Potassium 4.6 Chloride 109 H Carbon Dioxide 41.0 H Anion Gap 5 BUN 81 H Creatinine 1.61 H Estim Creat Clear Calc 38.95 Est GFR (MDRD) Af Amer 55 L Est GFR (MDRD) Non-Af 45 L BUN/Creatinine Ratio 50.3 H Glucose 106 Lactic Acid Calcium 8.5 Phosphorus Magnesium Iron TIBC Iron Saturation Ferritin Total Bilirubin AST ALT Alkaline Phosphatase Troponin I B-Natriuretic Peptide Total Protein Albumin Globulin Albumin/Globulin Ratio Vitamin B12 Folate Urine Color Urine Clarity Urine pH Ur Specific [place] Urine Protein Urine Glucose (UA) Urine Ketones Urine Occult Blood Urine Nitrite Urine Bilirubin Urine Urobilinogen Ur Leukocyte Esterase Urine RBC Urine WBC Ur Squamous Epith Cells Urine Bacteria Urine Mucus Digoxin POC Glucose 119 H 134 H Blood Type A1 Antigen Typing Rho(D) Type Antibody Screen Crossmatch 11/20/18 11/20/18 11/21/18 11:50 17:36 00:00 WBC RBC Hgb Hct MCV MCH MCHC RDW RDW Differential Plt Count MPV Immature Gran % (Auto) Neut % (Auto) Lymph % (Auto) [place] % (Auto) Eos % (Auto) Baso % (Auto) Absolute Neuts (auto) Absolute Lymphs (auto) Total Counted Differential Comment Hypochromasia Target Cells Ovalocytes PT INR APTT Specimen Type Sample Site pH Bicarbonate Actual POC Total CO2 Base Excess O2 Saturation O2 % ABG pCO2 ABG pO2 Cristian Test Respiration Rate O2 Delivery Device Liter Flow EPAP IPAP Blood Gas Notified Whom Blood Gas Notified Time Sodium 151 H Potassium 4.3 Chloride 108 H Carbon Dioxide 40.0 H Anion Gap 3 L BUN 82 H Creatinine 1.61 H Estim Creat Clear Calc 38.95 Est GFR (MDRD) Af Amer 55 L Est GFR (MDRD) Non-Af 45 L BUN/Creatinine Ratio 50.9 H Glucose 142 H Lactic Acid Calcium 8.5 Phosphorus Magnesium Iron TIBC Iron Saturation Ferritin Total Bilirubin AST ALT Alkaline Phosphatase Troponin I B-Natriuretic Peptide Total Protein Albumin Globulin Albumin/Globulin Ratio Vitamin B12 Folate Urine Color Urine Clarity Urine pH Ur Specific [place] Urine Protein Urine Glucose (UA) Urine Ketones Urine Occult Blood Urine Nitrite Urine Bilirubin Urine Urobilinogen Ur Leukocyte Esterase Urine RBC Urine WBC Ur Squamous Epith Cells Urine Bacteria Urine Mucus Digoxin POC Glucose 139 H 152 H Blood Type A1 Antigen Typing Rho(D) Type Antibody Screen Crossmatch 11/21/18 11/21/18 11/21/18 03:50 03:50 03:50 WBC 4.6 RBC 2.91 L Hgb 7.9 L Hct 27.1 L MCV 93.1 MCH 27.1 MCHC 29.2 L RDW 15.7 H RDW Differential 51.3 H Plt Count 156 MPV 10.0 Immature Gran % (Auto) 0.000 Neut % (Auto) 90.6 H Lymph % (Auto) 7.2 L [place] % (Auto) 2.2 Eos % (Auto) 0.0 Baso % (Auto) 0.0 Absolute Neuts (auto) 4.1 Absolute Lymphs (auto) 0.33 L Total Counted Not Reportable Differential Comment SCANNED Hypochromasia 2+ Target Cells 1+ Ovalocytes 2+ PT 20.7 H INR 1.8 APTT Specimen Type Sample Site pH Bicarbonate Actual POC Total CO2 Base Excess O2 Saturation O2 % ABG pCO2 ABG pO2 Cristian Test Respiration Rate O2 Delivery Device Liter Flow EPAP IPAP Blood Gas Notified Whom Blood Gas Notified Time Sodium 148 H Potassium 4.8 Chloride 103 Carbon Dioxide 38.0 H Anion Gap 7 BUN 81 H Creatinine 1.60 H Estim Creat Clear Calc 40.10 Est GFR (MDRD) Af Amer 55 L Est GFR (MDRD) Non-Af 46 L BUN/Creatinine Ratio 50.6 H Glucose 158 H Lactic Acid Calcium 8.7 Phosphorus Magnesium 2.6 Iron TIBC Iron Saturation Ferritin Total Bilirubin AST ALT Alkaline Phosphatase Troponin I B-Natriuretic Peptide Total Protein Albumin Globulin Albumin/Globulin Ratio Vitamin B12 Folate Urine Color Urine Clarity Urine pH Ur Specific [place] Urine Protein Urine Glucose (UA) Urine Ketones Urine Occult Blood Urine Nitrite Urine Bilirubin Urine Urobilinogen Ur Leukocyte Esterase Urine RBC Urine WBC Ur Squamous Epith Cells Urine Bacteria Urine Mucus Digoxin POC Glucose Blood Type A1 Antigen Typing Rho(D) Type Antibody Screen Crossmatch 11/21/18 11/21/18 03:50 05:28 WBC RBC Hgb Hct MCV MCH MCHC RDW RDW Differential Plt Count MPV Immature Gran % (Auto) Neut % (Auto) Lymph % (Auto) [place] % (Auto) Eos % (Auto) Baso % (Auto) Absolute Neuts (auto) Absolute Lymphs (auto) Total Counted Differential Comment Hypochromasia Target Cells Ovalocytes PT INR APTT Specimen Type Sample Site pH Bicarbonate Actual POC Total CO2 Base Excess O2 Saturation O2 % ABG pCO2 ABG pO2 Cristian Test Respiration Rate O2 Delivery Device Liter Flow EPAP IPAP Blood Gas Notified Whom Blood Gas Notified Time Sodium Potassium Chloride Carbon Dioxide Anion Gap BUN Creatinine Estim Creat Clear Calc Est GFR (MDRD) Af Amer Est GFR (MDRD) Non-Af BUN/Creatinine Ratio Glucose Lactic Acid Calcium Phosphorus 3.3 Magnesium Iron TIBC Iron Saturation Ferritin Total Bilirubin AST ALT Alkaline Phosphatase Troponin I B-Natriuretic Peptide Total Protein Albumin Globulin Albumin/Globulin Ratio Vitamin B12 Folate Urine Color Urine Clarity Urine pH Ur Specific [place] Urine Protein Urine Glucose (UA) Urine Ketones Urine Occult Blood Urine Nitrite Urine Bilirubin Urine Urobilinogen Ur Leukocyte Esterase Urine RBC Urine WBC Ur Squamous Epith Cells Urine Bacteria Urine Mucus Digoxin POC Glucose 157 H Blood Type A1 Antigen Typing Rho(D) Type Antibody Screen Crossmatch Microbiology 11/19/18 21:03 Urine, Clean Catch Urine Culture - Preliminary GNR lactose utility [employer] 11/19/18 19:55 Stool Stool Occult Blood (JEANNE) - Final Clinical Impression(s) from Imaging Studies Chest X-Ray 11/19/18 18:35 IMPRESSION: Stable hyperexpansion compatible with COPD. No new or acute pathology. Electronically Signed: Quincy Abarca MD at 20:22 EST , Service support , Lumbar Spine X-Ray 11/20/18 06:25 IMPRESSION: Mild acute superior endplate fracture at L2. Electronically Signed: Bay Johansen MD at 14:05 EST Tel , Service support , Medical Necessity - Tobacco Use Smoking Status: Former smoker Assessment/Plan All Active Problems (Last Reviewed 11/19/18 @ 21:52 by Alpesh Caro MD) RAFAEL (acute kidney injury) (Acute) Elevated troponin (Acute) Acute on chronic respiratory failure with hypercapnia (Acute) Severe dehydration (Acute) Acute encephalopathy (Acute) COPD exacerbation (Acute) Acute on chronic respiratory failure with hypoxia and hypercapnia (Acute) Confusion (Resolved) Acute on chronic systolic (congestive) heart failure (Acute) Pneumothorax (Resolved) Pneumothorax on left (Resolved) RECOMMENDATIONS: 1. Continue antibiotics 2. Okay to restart Eliquis 3. Wean supplemental oxygen as tolerated 4. Check full respiratory viral panel 5. Continue IV steroids, with plans to transition to prednisone beginning tomorrow 6. Continue scheduled bronchodilators IMPRESSIONS: 1. Acute on chronic combined respiratory failure/baseline stage IV COPD Likely precipitated by viral etiology, as bacterial workup has been negative. Recommend checking full respiratory viral panel. Continue current supportive measures with scheduled bronchodilators and steroids as ordered. Wean supplemental oxygen. Encourage incentive spirometer use and mobilize patient as tolerated. 2. Gram-negative cystitis Continue antibiotics as ordered. 3. Obstructive sleep apnea Continue nocturnal BiPAP therapy per home regimen. 4. Normocytic anemia The patient has already been transfused and appears to have normocytic anemia. Stool for occult blood was negative. Continue to monitor blood counts and transfuse to maintain a hemoglobin greater than 7 g/dL. 5. Chronic systolic heart failure Restart home cardiac medications including diuretics. 6. Chronic atrial fibrillation/diabetes/metabolic encephalopathy/acute kidney injury Complicates care, management, recovery and prognosis. Okay to restart Eliquis from my perspective. This note was generated with [employer] software. It may contain incorrect words, spelling, and punctuation that were not noted in checking the note before signing. DISPOSITION: The patient is medically stable for transfer out of the intensive care unit. Code Visit Inpatient E&M: 26811 Subs Hosp L3
--- NOTE | 2018-11-21 08:11 | PCM.PROGNOTE ---
Patient Problems: Active and Suspected Problems (Last Reviewed 11/19/18 @ 21:52 by Alpesh Caro MD) RAFAEL (acute kidney injury) (Acute) Acute on chronic respiratory failure with hypercapnia (Acute) Severe dehydration (Acute) Acute encephalopathy (Acute) Subjective: The pt is a 68 YO male with a PMH of stage 4 COPD, dilated CM with a 25-30% EF in 2014, CAD, PETE, PAF, diabetes mellitus type 2, chronic anticoagulation with Eliquis, Silicosis, AICD placement and HTN who was admitted to [facility] on 11/19/18 with Hypernatremia, severe anemia, BPH with TURP's in the past with the most recent being in 2014, chronic dropped foot on the right, Alzheimer's dementia, cervical fusion and resection of a cerebral aneurysm and acute on chronic respiratory failure with hypoxia and hypercarbia. He was admitted to [facility] on 11/19/2018 with acute metabolic encephalopathy, acute on chronic respiratory failure with hypoxemia and hypercarbia, severe dehydration with hypernatremia, hypotension acute kidney injury, cystitis and severe anemia -Day #3 All events of the past 24 hours of been reviewed. Afebrile, Intermittently tachycardic, BP stable 100% on a 3 L nasal cannula with a respiratory rate of 22. All labs personally reviewed.: White blood cell count is 4.6 with 91% neutrophils ( on high dose steroids), hemoglobin 7.9 with normochromic normocytic indices, platelets are within normal limits today. Sodium is down to 148 from 155 on 11/20/2018. Serum bicarb is 38, down from 41 yesterday a.m. BUN is 81 with a creatinine of 1.6, down from 2.21 at admission. Creatinine in June 2018 was 1.29 and in 2018 the creatinine was 1.0. Phosphorus and magnesium are normal today. Blood sugars are mildly elevated. Stool is Hemoccult negative. Radiology: Chest x-ray at admission shows hyperexpansion with flattening of the diaphragms and stable bilateral opacities in the bilateral upper lobes. No acute findings. Lumbar spine x-rays show kyphoplasty at L2. 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 Echocardiogram in 2014 revealed a moderately dilated left ventricle with global left ventricular systolic dysfunction and an EF estimated at 25-30%. The atria were moderately enlarged. There was mild TR and mild MR and the right ventricular systolic pressure was estimated to be 39 consistent with mild pulmonary hypertension. Mild to moderate aortic insufficiency and diffuse aortic valve thickening. There was a mild to moderately dilated aortic root. Pt has no complaints other than back pain with shooting pain into his leg. He recently had a kyphoplasty done by Dr. Dr. Weiss on November 04. He has been taking Tramadol at home with no significant relief. He has had a decreased appetite for about 6 months and has lost 8 lbs recently since the kyphoplasty. He has gotten very week and has not been able to ambulate. - Physical Exam General: Alert, Cooperative, Confused, - HEENT: Atraumatic, PERRLA, Normocephalic Oral: Moist Mucosa Neck: Supple, No Nuchal Rigidity, Trachea Midline, - - he has a cicatrix posterior neck from fusion and aneursym resection Lungs: No rales, Diminished, Tachypneic, Wheezes, - - Pursed lip breathing Cardiovascular: Normal S1, Normal S2, No murmurs, Irregular Rate, No rub noted, No Gallop, - - Telemetry unit shows atrial fibrillation with PVCs. Abdomen: Bowel Sounds Present, Soft, Non Tender, Non-Distended Extremities: Edema - Of the ankles Skin: No rashes, No breakdown Neurological: Cranial nerves II-XII grossly intact, Neuro grossly intact - except for a dropped foot that he has had for a long time Psych/Mental Status: Appropriate, Flat Affect Vital Signs Temp Pulse Resp BP Pulse Ox 98.9 F 111 H 22 H 125/86 H 100 11/21/18 07:00 11/21/18 08:00 11/21/18 07:00 11/21/18 07:00 11/21/18 07:00 Oxygen Flow Rate (L/min) 3 Oxygen Delivery Method Nasal Cannula Weight: 145 lb 8.081 oz Body Mass Index (BMI) 19.1 Intake and Output for Last 24 Hours 11/19/18 11/20/18 11/21/18 23:59 23:59 23:59 Intake Total 0 / 0 3331 / 3331 522 / 522 Output Total 1600 / 1600 450 / 450 Balance 0 / 0 1731 / 1731 72 / 72 Microbiology Past 72 Hours 11/19/18 21:03 Urine Culture - Preliminary Urine, Clean Catch 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 11/19/18 19:55 Stool Occult Blood (JEANNE) - Final Stool Laboratory Tests Past 24 Hrs 11/20/18 11/21/18 11/21/18 11:50 03:50 03:50 WBC 4.6 RBC 2.91 L Hgb 7.9 L Hct 27.1 L MCV 93.1 MCH 27.1 MCHC 29.2 L RDW 15.7 H RDW Differential 51.3 H Plt Count 156 MPV 10.0 Immature Gran % (Auto) 0.000 Neut % (Auto) 90.6 H Lymph % (Auto) 7.2 L Hawkins % (Auto) 2.2 Eos % (Auto) 0.0 Baso % (Auto) 0.0 Absolute Neuts (auto) 4.1 Absolute Lymphs (auto) 0.33 L Total Counted Not Reportable Differential Comment SCANNED Hypochromasia 2+ Target Cells 1+ Ovalocytes 2+ PT 20.7 H INR 1.8 Sodium 151 H Potassium 4.3 Chloride 108 H Carbon Dioxide 40.0 H Anion Gap 3 L BUN 82 H Creatinine 1.61 H Estim Creat Clear Calc 38.95 Est GFR (MDRD) Af Amer 55 L Est GFR (MDRD) Non-Af 45 L BUN/Creatinine Ratio 50.9 H Glucose 142 H Calcium 8.5 Phosphorus Magnesium 11/21/18 11/21/18 03:50 03:50 WBC RBC Hgb Hct MCV MCH MCHC RDW RDW Differential Plt Count MPV Immature Gran % (Auto) Neut % (Auto) Lymph % (Auto) Hawkins % (Auto) Eos % (Auto) Baso % (Auto) Absolute Neuts (auto) Absolute Lymphs (auto) Total Counted Differential Comment Hypochromasia Target Cells Ovalocytes PT INR Sodium 148 H Potassium 4.8 Chloride 103 Carbon Dioxide 38.0 H Anion Gap 7 BUN 81 H Creatinine 1.60 H Estim Creat Clear Calc 40.10 Est GFR (MDRD) Af Amer 55 L Est GFR (MDRD) Non-Af 46 L BUN/Creatinine Ratio 50.6 H Glucose 158 H Calcium 8.7 Phosphorus 3.3 Magnesium 2.6 POC Glucose 11/21/18 11/21/18 11/20/18 05:28 00:00 17:36 POC Glucose 157 H 152 H 139 H 11/20/18 11:41 POC Glucose 134 H Medical Necessity - Tobacco Use Smoking Status: Former smoker Assessment/Plan All Active Problems (Last Reviewed 11/19/18 @ 21:52 by lApesh Caro MD) RAFAEL (acute kidney injury) (Acute) Elevated troponin (Acute) Acute on chronic respiratory failure with hypercapnia (Acute) Severe dehydration (Acute) Acute encephalopathy (Acute) COPD exacerbation (Acute) Acute on chronic respiratory failure with hypoxia and hypercapnia (Acute) Confusion (Resolved) Acute on chronic systolic (congestive) heart failure (Acute) Pneumothorax (Resolved) Pneumothorax on left (Resolved) Impressions 1. Acute on chronic respiratory failure with hypoxemia and hypercapnia 2. RSV B infection 3. Cystitis secondary to Klebsiella pneumoniae infection 4. Hypernatremia 5. Pancytopenia with severe anemia-chronic 6. BPH with history of TURPs in the past-the last TURP was in 2014 7. Chronic drop foot on the right 8. Alzheimer's dementia 9. History of cervical fusion 10. History of resection of a cerebral aneurysm 11. Acute kidney injury secondary to dehydration 12. Severe dehydration 13. Elevated troponin-possibly secondary to acute renal failure versus NSTEMI Check TSH, T4 and T3, HGB electrophoresis, SPE and IF and urine electrophoresis and IF. B12 is pending. No FH of sickle cell disease. Transfer to PCU PT/OT I suspect he is going to need SNF at [place]...he must be able to walk for his to be able to care for him at home Consult Dr. Guevara for the anemia.....also had leukopenia and mild thrombocytopenia at admission D/W Dr. Marroquin
[2018-11-21 10:22] LABS: Immature Platelet Fraction 4.6 % (1.0-7.9); RET-HE 15.7 pg (30-35); Reticulocyte Count 1.82 % (0.5-1.5)
[2018-11-21 11:03] LABS: Vitamin B12 > 2000 pg/mL (211-911)
[2018-11-21] MEDS: APIXABAN 2.5 MG TABLET PO ×2 (11:21→21:09)
[2018-11-21] MEDS: Pantoprazole Sodium 40 MG Tablet PO (11:21)
[2018-11-21 11:31] LABS: Bedside Glucose 201 mg/dL (70-110)
[2018-11-21 11:33] LABS: Free T3 1.1 pg/mL (2.18-3.98); T4 Free Direct 0.99 ng/dL (0.76-1.46); Thyroid Stim Hormone (TSH) 0.06 uIU/mL (0.358-3.74)
--- NOTE | 2018-11-21 12:48 | CASEMGMT ---
Social Work Unit - ICU Reason for Intervention: Advanced directives Approached by patient's son Salvadro and [id number] Siomara inquiring about the status of patient's advanced directives with this hospital. This expert medical writer assisted family with completion during a prior hospitalization and placed a copy in patient's medical record at that time. Family asked this expert medical writer to look into finding the documents as would like to have a copy placed on the chart. Found scanned documents, printed and placed on patient's current physical chart. Message left for the son (who is the 2nd [facility]) that paperwork on the chart. -EMILE Stone, JACQUARD CARD CUTTER
--- NOTE | 2018-11-21 13:30 | CASEMGMT ---
AMAURY MALONE ASSESSMENT Face to Face with patient for initial transition planning/care coordination assessment. AMAURY MALONE introduced self and role at [facility]. Pt voices understanding and consents to assessment at this time. Pt sitting up in recliner chair in no distress at this time. Pt is Alert/oriented. , son, and DIL in room visiting with pt. Care providers, pharmacy, and demographics verified/updated at this time. PCP: Keegan Specialists: Heather Arnett, Abhishek, Americo. Preferred Pharmacy: [facility] Insurance: [facility], [facility]. Prescription Benefit: Family flores pt qualified for Prescription drug benefits in 2018 but was just informed he does not qualify for upcoming year. Family flores are interested in getting prescription coverage for pt. They were made aware there is an additional Open Enrollment through January for insurance, but this AMAURY MALONE unsure if prescription coverage is offered at this time. They stated they will check into seeing if this may be available as well. Living Will/HPOA: Has both LW and HCPOA, which is his , Dominique. Living Arrangements: Lives with his in a one-story home. 5-6 steps to enter. assists pt with showering, dressing, meals, household mgmt tasks, finances, and medication management. Transportation: DME: has the following DME: shower chair, grab bars, hand held shower, walker, rollator, W/C, BIPAP, nebulizer, and O2 @ 3l/m and gets through [employer]. Family flores is interested in getting a medical alert button for pt. Provided them with Medical alert information sheet. They state they are also interested in getting pt a BSC. They were informed this is not covered through [facility]. They stated will get this on their own. HHC/SNF: Pt has been to [facility] and has had [facility]. Family voice concerns with pt returning home and state they feel pt would benefit from SNF. Pt agreeable to this and stated, I need to do whatever it takes to get better. Pt states he would like to go to [facility]. Oliva [facility]IR, notified of pt's request and therapies recommendations. PT/OT evals have been completed. Plan: [facility] Alexis BSN AMAURY MALONE
--- NOTE | 2018-11-21 13:56 | NURSING ---
1345 attempted to call PCU nurse to give report. told Anu MIDDLEWARE CONSULTANT would have to call this RN right back.
--- NOTE | 2018-11-21 14:32 | CASEMGMT ---
Social Work: Referral from Grace REBOLLEDO CM as patient is requesting to be discharged to SNF at D/C. Patient requesting [facility]. TC to Irene with referral information. Irene requesting clinicals. Clinicals faxed. TC from Megan at [facility] stating they are able to accept patient when medically ready. PLAN: Patient to be discharged to [facility] when medically ready. EMILE Sepulveda
--- NOTE | 2018-11-21 15:08 | CASEMGMT ---
Social Work: Met with patient and daughter in room. Patient aware that [facility] is able to accept when medically ready. HENS started and green sheet on chart. PLAN: Patient to be discharged to [facility] when medically ready. SW to continue follow to assist with D/C planning as needed. ASHLEY Sepulveda
--- NOTE | 2018-11-21 17:06 | CON.PCM_ITS ---
Consult Referring Physician: Dr.C. Quintanilla Consult Results: Anemia Subjective Date of Service:: 11/21/18 Chief Complaint: acute hypercapnic respiratory failure and aemia. History of Present Illness: 68y.o.man with multiple medical problems including chronic anemia, was admitted with Respiratory failure, found to have Hgb of 7 so was transfused 2 Units of PRBC on 11/19/2018. 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 Shortness of breath (Chronic) Hypercapnic respiratory failure, chronic (Chronic) Acute and chronic respiratory failure with hypercapnia (Chronic) Paroxysmal atrial fibrillation (Chronic) Chronic respiratory failure (Chronic) Silicosis (Chronic) History of implantable cardioverter-defibrillator (ICD) placement (Chronic) CHF (congestive heart failure) (Chronic) Hypertension (Chronic) Past Medical/Surgical History: Past Medical History - Most Recent Inpatient Visit Past Medical History Start: 11/19/18 22:45 Text: Status: Complete Freq: ONCE Protocol: Document 11/19/18 22:45 [facility] (Rec: 11/19/18 23:03 [facility] [id number]) BMI Required to complete PMH What is Patient's BMI 19.2 Past Medical History Unable History Recalled Yes Query Text:Pt Unable/Family Not Present Neurologic Medical History Hx Stroke/TIA No Hx Dementia/Alzheimer's Yes: EARLY ALZHEIMERS Hx Parkinson's Disease No Hx Seizures No Hx Multiple Sclerosis No Hx Migraines No Cardiac Medical History VTE Present on Admission No Hx of Deep Vein Thrombosis/VTE/PE No Hx Hypertension Yes Hx Chest Pain/Angina No Hx Heart Attack No Hx Cardiac Surgery/Stents/Etc. No Hx Heart Failure Yes Hx Pacemaker/AICD Yes: PACEMAKER/DEFIB Hx Irregular Heartbeat and/or Afib Yes: A.FIB Hx Anticoagulant Therapy Yes: ELIQUIS Query Text:(Coumadin, Aspirin, Plavix, Xarelto, etc.) Hx Pain in Legs when Walking/Leg Cramps No Respiratory Medical History Hx COPD Yes: WITH SILICOSIS Hx Emphysema No Hx Smoking Yes Smoking Status Former smoker Hx Smoking Cessation Counseling Yes: 2 years ago Hx Smoking Exposure No Hx Tobacco Use in last 12 months No Hx of Pipe Smoking No Hx Sleep Apnea Yes: USING BIPAP AT NIGHT CPAP No BIPAP Yes STOP Results Positive GI Medical History Hx Ulcer No Hx Hepatitis No Hx Cirrhosis No Hx GI Bleed No Hx Unplanned Weight Loss Yes Genitourinary Medical History Indwelling Catheter in Place on Arrival/ No Admission Hx Renal Disease No Hx Dialysis No Musculoskeletal History Hx Arthritis Yes Hx Rheumatoid Arthritis No Endocrine Medical History Hx Diabetes No Hx Thyroid Disease No Hematologic Medical History Hx of Blood Transfusion No Hx of Transfusion in last 3 Months No Ever experience any problems with No transfusion(s)? Hx of Preganancy in last 3 Months N/A Nurse Filling Out Transfusion & [facility]SMOLKO Questions: Date: 11/19/18 Time: 23:02 Psycho/Social Medical History Hx Depression No Hx Anxiety No Hx Behavior Disorder No Hx Alcohol Use No Hx Substance Use No Other Medical History Hx Blood Disorders No Hx Anemia Yes Hx Cancer No Hx Drug Resistant Organism No Wound/Pressure Injury Present on Arrival No /Admission Query Text:If yes, chart assessment in Shift/Clinical Findings Central Line/PICC/VAD Present on Arrival No /Admission Antibiotics within last 7 days? No Methicillin Resistant Staphylococcus aureus Screening Active MRSA No Risk for Readmission Number of Risk Factors 5 At Risk for Readmission Patient is At Risk For Readmission Patient is eligible for Call Back Y Past Medical History (Last Reviewed 11/19/18 @ 21:52 by Alpesh Caro MD) Hypersomnia (Chronic) Pleural effusion (Inactive) PETE (obstructive sleep apnea) (Chronic) Stage 4 very severe COPD by GOLD classification (Chronic) Tobacco abuse (Chronic) Shortness of breath (Chronic) Confusion (Resolved) Hypercapnic respiratory failure, chronic (Chronic) Acute and chronic respiratory failure with hypercapnia (Chronic) Paroxysmal atrial fibrillation (Chronic) Chronic respiratory failure (Chronic) Silicosis (Chronic) Acute on chronic systolic (congestive) heart failure (Acute) CHF (congestive heart failure) (Chronic) Hypertension (Chronic) Pneumothorax on left (Resolved) Past Surgical History (Last Reviewed 11/19/18 @ 21:52 by Alpesh Caro MD) History of implantable cardioverter-defibrillator (ICD) placement (Chronic) Paternal Family History: Family History (Last Reviewed 11/19/18 @ 21:53 by Alpesh Caro MD) Father Lung disease Brother Cancer Family History: No pertinent history Maternal Family History: Family History (Last Reviewed 11/19/18 @ 21:53 by Alpesh Caro MD) Father Lung disease Brother Cancer Family History: No pertinent history - Social History Smoking Status: Former smoker Allergies/Adverse Reactions: Allergy/AdvReac Type Severity Reaction Status Date / Time aspirin AdvReac Upset Verified 11/19/18 18:24 Stomach Review of Systems Constitutional:: Reports: Weakness, Fatigue. Denies: Fever, Sweats Cardiovascular:: Denies: Chest pain, Palpitations, Dyspnea on exertion, Orthopnea, PND, Shortness of breath Respiratory: Reports: Cough. Denies: Hemoptysis, Shortness of Breath, Wheezing Gastrointestinal:: Denies: Abdominal pain, Nausea, Vomiting, Diarrhea, Constipation, Hematochezia Genitourinary: Denies: Dysuria, Hematuria, 15, Flank pain Musculoskeletal:: Denies: Back pain, Myalgia, Arthralgia Skin: Denies: Rash, Skin Changes, Wounds Psychiatric: Denies: Anxiety, Depression, Homicidal Ideations, Suicidal Ideations Vital Signs Height 5 ft 11 in Weight: 66 kg Weight in Pounds 145.5 lbs Pulse Ox 100 Temperature 98.3 F Pulse Rate 100 Respiratory Rate 22 Blood Pressure [BP] 118/78 Blood Pressure 123/80 Blood Pressure Position [BP] Semi-Fowlers Blood Pressure Position Semi-Fowlers - Physical Exam General: Alert, Oriented x3, No apparent distress HEENT: Atraumatic, PERRLA, EOMI, Normocephalic Oropharynx:: Dry mucosa Neck:: Supple, Trachea midline. Negative for: JVD, bilateral Cardiac:: Regular rate, Regular rhythm, Normal S1, Normal S2. Negative for: Murmur Lungs: Clear to auscultation, Excusion symmetrical. Negative for: Rhonchi, Wheezes Abdomen:: Bowel sounds x 4, Soft, Non-tender, Non-distended. Negative for: Hepatosplenomegaly Skin:: Negative for: Lesions, Rash, Petechiae, Ecchymosis Lymphatics:: Negative for: Cervical lymphadenopathy, Supraclavicular lymphadenopathy, Axillary lymphadenopathy Laboratory Data: Microbiology 11/21/18 08:17 Respiratory Panel (PCR) - Final Mucosa - Nasopharyngeal RSV B 11/19/18 21:03 Urine Culture - Final Urine, Clean Catch Klebsiella pneumoniae sp pneum 11/19/18 19:55 Stool Occult Blood (JEANNE) - Final Stool Laboratory Tests 11/21/18 11/21/18 11/21/18 Range/Units 11:20 05:28 03:50 WBC (4.4-11.0) K/mm3 RBC (4.6-6.2) M/mm3 Hgb (13.0-16.5) g/dl Hct (40-54) % MCV (80-94) fL MCH (27.0-32.0) pg MCHC (32-36) g/gl RDW (11.6-14.6) % RDW Differential (35.1-43.9) fl Plt Count (150-450) K/mm3 MPV (6.2-12.0) fl Immature Gran % (Auto) (0.0-0.9) % Neut % (Auto) (47-70) % Lymph % (Auto) (19-41) % [place] % (Auto) (0-10) % Eos % (Auto) (0-5) % Baso % (Auto) (0-1) % Absolute Neuts (auto) (2.0-7.7) X10^3/uL Absolute Lymphs (auto) (0.83-4.51) X10^3/ul Total Counted Differential Comment Immature Plt Fraction (1.0-7.9) % Hypochromasia Target Cells Ovalocytes Retic Count (0.5-1.5) % Immature Retic Fraction (3.00-15.90) % Retic Hgb Equivalent (30-35) pg PT (11.7-14.9) SECONDS INR Sodium (136-145) mmol/L Potassium (3.5-5.1) mmol/L Chloride (98-107) mmol/L Carbon Dioxide (21.0-32.0) mmol/L Anion Gap (5-15) BUN (7-18) mg/dL Creatinine (0.70-1.30) mg/dL Estim Creat Clear Calc ml/min Est GFR (MDRD) Af Amer (>60) mL/min Est GFR (MDRD) Non-Af (>60) mL/min BUN/Creatinine Ratio (10-20) RATIO Glucose (74-106) mg/dL Calcium (8.5-10.1) mg/dL Phosphorus (2.5-4.9) mg/dL Magnesium (1.6-2.6) mg/dL Vitamin B12 (211-911) pg/mL TSH 0.06 L (0.358-3.74) uIU/mL Free T4 0.99 (0.76-1.46) ng/dL Free T3 pg/dL 1.1 L (2.18-3.98) pg/mL Rheumatoid Factor 130.0 H (<15) IU/mL POC Glucose 201 H 157 H (70-110) mg/dL 11/21/18 11/21/18 11/21/18 Range/Units 03:50 03:50 03:50 WBC (4.4-11.0) K/mm3 RBC (4.6-6.2) M/mm3 Hgb (13.0-16.5) g/dl Hct (40-54) % MCV (80-94) fL MCH (27.0-32.0) pg MCHC (32-36) g/gl RDW (11.6-14.6) % RDW Differential (35.1-43.9) fl Plt Count (150-450) K/mm3 MPV (6.2-12.0) fl Immature Gran % (Auto) (0.0-0.9) % Neut % (Auto) (47-70) % Lymph % (Auto) (19-41) % [place] % (Auto) (0-10) % Eos % (Auto) (0-5) % Baso % (Auto) (0-1) % Absolute Neuts (auto) (2.0-7.7) X10^3/uL Absolute Lymphs (auto) (0.83-4.51) X10^3/ul Total Counted Differential Comment Immature Plt Fraction 4.6 (1.0-7.9) % Hypochromasia Target Cells Ovalocytes Retic Count 1.82 H (0.5-1.5) % Immature Retic Fraction 16.00 H (3.00-15.90) % Retic Hgb Equivalent 15.7 L (30-35) pg PT (11.7-14.9) SECONDS INR Sodium 148 H (136-145) mmol/L Potassium 4.8 (3.5-5.1) mmol/L Chloride 103 (98-107) mmol/L Carbon Dioxide 38.0 H (21.0-32.0) mmol/L Anion Gap 7 (5-15) BUN 81 H (7-18) mg/dL Creatinine 1.60 H (0.70-1.30) mg/dL Estim Creat Clear Calc 40.10 ml/min Est GFR (MDRD) Af Amer 55 L (>60) mL/min Est GFR (MDRD) Non-Af 46 L (>60) mL/min BUN/Creatinine Ratio 50.6 H (10-20) RATIO Glucose 158 H (74-106) mg/dL Calcium 8.7 (8.5-10.1) mg/dL Phosphorus 3.3 (2.5-4.9) mg/dL Magnesium 2.6 (1.6-2.6) mg/dL Vitamin B12 (211-911) pg/mL TSH (0.358-3.74) uIU/mL Free T4 (0.76-1.46) ng/dL Free T3 pg/dL (2.18-3.98) pg/mL Rheumatoid Factor (<15) IU/mL POC Glucose (70-110) mg/dL 11/21/18 11/21/18 11/21/18 Range/Units 03:50 03:50 00:00 WBC 4.6 (4.4-11.0) K/mm3 RBC 2.91 L (4.6-6.2) M/mm3 Hgb 7.9 L (13.0-16.5) g/dl Hct 27.1 L (40-54) % MCV 93.1 (80-94) fL MCH 27.1 (27.0-32.0) pg MCHC 29.2 L (32-36) g/gl RDW 15.7 H (11.6-14.6) % RDW Differential 51.3 H (35.1-43.9) fl Plt Count 156 (150-450) K/mm3 MPV 10.0 (6.2-12.0) fl Immature Gran % (Auto) 0.000 (0.0-0.9) % Neut % (Auto) 90.6 H (47-70) % Lymph % (Auto) 7.2 L (19-41) % [place] % (Auto) 2.2 (0-10) % Eos % (Auto) 0.0 (0-5) % Baso % (Auto) 0.0 (0-1) % Absolute Neuts (auto) 4.1 (2.0-7.7) X10^3/uL Absolute Lymphs (auto) 0.33 L (0.83-4.51) X10^3/ul Total Counted Not Reportable Differential Comment SCANNED Immature Plt Fraction (1.0-7.9) % Hypochromasia 2+ Target Cells 1+ Ovalocytes 2+ Retic Count (0.5-1.5) % Immature Retic Fraction (3.00-15.90) % Retic Hgb Equivalent (30-35) pg PT 20.7 H (11.7-14.9) SECONDS INR 1.8 Sodium (136-145) mmol/L Potassium (3.5-5.1) mmol/L Chloride (98-107) mmol/L Carbon Dioxide (21.0-32.0) mmol/L Anion Gap (5-15) BUN (7-18) mg/dL Creatinine (0.70-1.30) mg/dL Estim Creat Clear Calc ml/min Est GFR (MDRD) Af Amer (>60) mL/min Est GFR (MDRD) Non-Af (>60) mL/min BUN/Creatinine Ratio (10-20) RATIO Glucose (74-106) mg/dL Calcium (8.5-10.1) mg/dL Phosphorus (2.5-4.9) mg/dL Magnesium (1.6-2.6) mg/dL Vitamin B12 (211-911) pg/mL TSH (0.358-3.74) uIU/mL Free T4 (0.76-1.46) ng/dL Free T3 pg/dL (2.18-3.98) pg/mL Rheumatoid Factor (<15) IU/mL POC Glucose 152 H (70-110) mg/dL 11/20/18 11/20/18 Range/Units 17:36 00:35 WBC (4.4-11.0) K/mm3 RBC (4.6-6.2) M/mm3 Hgb (13.0-16.5) g/dl Hct (40-54) % MCV (80-94) fL MCH (27.0-32.0) pg MCHC (32-36) g/gl RDW (11.6-14.6) % RDW Differential (35.1-43.9) fl Plt Count (150-450) K/mm3 MPV (6.2-12.0) fl Immature Gran % (Auto) (0.0-0.9) % Neut % (Auto) (47-70) % Lymph % (Auto) (19-41) % [place] % (Auto) (0-10) % Eos % (Auto) (0-5) % Baso % (Auto) (0-1) % Absolute Neuts (auto) (2.0-7.7) X10^3/uL Absolute Lymphs (auto) (0.83-4.51) X10^3/ul Total Counted Differential Comment Immature Plt Fraction (1.0-7.9) % Hypochromasia Target Cells Ovalocytes Retic Count (0.5-1.5) % Immature Retic Fraction (3.00-15.90) % Retic Hgb Equivalent (30-35) pg PT (11.7-14.9) SECONDS INR Sodium (136-145) mmol/L Potassium (3.5-5.1) mmol/L Chloride (98-107) mmol/L Carbon Dioxide (21.0-32.0) mmol/L Anion Gap (5-15) BUN (7-18) mg/dL Creatinine (0.70-1.30) mg/dL Estim Creat Clear Calc ml/min Est GFR (MDRD) Af Amer (>60) mL/min Est GFR (MDRD) Non-Af (>60) mL/min BUN/Creatinine Ratio (10-20) RATIO Glucose (74-106) mg/dL Calcium (8.5-10.1) mg/dL Phosphorus (2.5-4.9) mg/dL Magnesium (1.6-2.6) mg/dL Vitamin B12 > 2000 H (211-911) pg/mL TSH (0.358-3.74) uIU/mL Free T4 (0.76-1.46) ng/dL Free T3 pg/dL (2.18-3.98) pg/mL Rheumatoid Factor (<15) IU/mL POC Glucose 139 H (70-110) mg/dL Diagnostic Data: Diagnostic Data Chest X-Ray 11/19/18 18:35 IMPRESSION: Stable hyperexpansion compatible with COPD. No new or acute pathology. Electronically Signed: Quincy Abarca MD at 20:22 EST , Service support , Lumbar Spine X-Ray 11/20/18 06:25 IMPRESSION: Mild acute superior endplate fracture at L2. Electronically Signed: Bay Johansen MD at 14:05 EST Tel , Service support , Assessment and Plan Chronic Anemia, etiology may be multifactorial, including malnutrition, anemia of chronic disease. Admitted with RSV and respiratory failure. S/P PRBC transfusion. Suggestion is to continue supportive care. Follow up as outpatient on discharge for work up. Medications: Prescriptions This Visit Medication Instructions Recorded Donepezil HCl 5 mg PO QHS 11/19/18 Medications Added to Medication List This Visit Category Date Time Status Apixaban [Eliquis] Med 11/21/18 10:00 Active 2.5 mg PO BID Dextrose 5%-Water 1,000 ml Med 11/21/18 10:45 Active IV 30 mls/hr Pantoprazole Sodium [Protonix] Med 11/21/18 10:00 Active 40 mg PO DAILY Primary Care Provider: Sony Allison MD Referring Provider: Alpesh Caro MD - Problem List (1) Anemia Status: Chronic Qualifiers: Anemia type: unspecified type Qualified Code(s): D64.9 - Anemia, unspecified Code Visit Office Visits / Consults: 65698 IP Consult L5
[2018-11-21 17:16] LABS: Bedside Glucose 121 mg/dL (70-110)
[2018-11-21] MEDS: Acetaminophen 325 MG Tablet 650 MG PO (19:39)
[2018-11-21] MEDS: Ceftriaxone 1 GM/50 ML BAG IV (21:12)
[2018-11-21 22:51] LABS: Bedside Glucose 125 mg/dL (70-110)
[2018-11-22] VITALS (24 sets, daily range): BP systolic 121–128; BP diastolic 81–91; PULSE 70–119; RESP 12–28; TEMP 35.8–36.8; O2SAT 95–100
[2018-11-22] MEDS: Ipratropium/Albuterol Sulfate 3 ML AMPUL.NEB INHALATION ×7 (00:02→22:53)
[2018-11-22] MEDS: Acetaminophen 325 MG Tablet 650 MG PO (02:08)
[2018-11-22] MEDS: 0.9% NaCl Peripheral Flush Adult/Peds IV (05:28)
--- NOTE | 2018-11-22 07:02 | PCM.PROGNOTE ---
Patient Problems: Active and Suspected Problems (Last Reviewed 11/19/18 @ 21:52 by Alpesh Caro MD) Acute on chronic respiratory failure with hypercapnia (Acute) Severe dehydration (Acute) Acute encephalopathy (Acute) Subjective: The patient was seen and examined at the bedside this morning. Events from the last 24 hours have been reviewed. The patient is currently afebrile, hemodynamically stable and maintaining appropriate oxygen saturations on BiPAP currently. Objective: The patient's most recent lab work, culture data and imaging studies have all been personally reviewed. Surface echocardiogram from February 2017 revealed a moderately dilated LV with severe global LV systolic dysfunction and an ejection fraction of 20%. There was also evidence of mild global RV systolic dysfunction with a right ventricular systolic pressure estimated to be 60 mmHg. Polysomnogram completed February 2017 revealed evidence of severe obstructive sleep apnea for which it was recommended that the patient be placed on bilevel therapy with a pressure support of 22/16 with a 1 L/min supplemental oxygen bleed in. Stool for occult blood was negative. Blood cultures are pending. Urine culture revealed the presence of Klebsiella pneumonia. Respiratory viral panel was positive for RSV. - Physical Exam General: Alert, Cooperative, No apparent distress HEENT: Atraumatic, PERRLA, Normocephalic Oral: Moist Mucosa, No Gingival or Mucosal Lesions/ Ulcerations Neck: Supple, No Nodes, Trachea Midline Lungs: No rhonchi, No wheeze, No rales, Diminished Cardiovascular: Regular rate, Regular Rhythm, Normal S1, Normal S2, No murmurs Abdomen: Bowel Sounds Present, Soft, Non Tender Extremities: No cyanosis, No edema, Clubbing Skin: No breakdown Musculoskeletal: No Tenderness to Palpation of Joints or Extremities Lymphatic: No Cervical, Supraclavicular, or Inguinal Adenopathy Neurological: Cranial nerves II-XII grossly intact, Neuro grossly intact Psych/Mental Status: Normal Affect, Appropriate Vital Signs Temp Pulse Resp BP Pulse Ox 36.6 C 99 17 126/87 H 99 11/22/18 03:30 11/22/18 04:52 11/22/18 04:52 11/22/18 03:30 11/22/18 04:52 Oxygen Flow Rate (L/min) 3 Oxygen Delivery Method Bi-pap Weight: 145 lb 8.081 oz Body Mass Index (BMI) 19.1 Intake and Output for Last 24 Hours 11/20/18 11/21/18 11/22/18 23:59 23:59 23:59 Intake Total 3331 / 3331 1714 / 1714 340 / 340 Output Total 1600 / 1600 700 / 700 850 / 850 Balance 1731 / 1731 1014 / 1014 -510 / -510 Microbiology Past 72 Hours 11/21/18 08:17 Respiratory Panel (PCR) - Final Mucosa - Nasopharyngeal RSV B 11/19/18 21:03 Urine Culture - Final Urine, Clean Catch Klebsiella pneumoniae sp pneum 11/19/18 19:55 Stool Occult Blood (JEANNE) - Final Stool Laboratory Tests Past 24 Hrs 11/20/18 11/21/18 11/21/18 00:35 03:50 03:50 Immature Plt Fraction 4.6 Retic Count 1.82 H Immature Retic Fraction 16.00 H Retic Hgb Equivalent 15.7 L Total Protein (PEP) Vitamin B12 > 2000 H TSH 0.06 L Free T4 0.99 Free T3 pg/dL 1.1 L IgG IgA IgM Albumin (LIZETT) Albumin/Globulin (LIZETT) Wcnsh-3-Uyuxxjlnf LIZETT Bqris-1-Jywsekyiv LIZETT Beta-Globulins (LIZETT) Gamma Globulins (LIZETT) LIZETT M-Zeferino Urine Immunofixation Rheumatoid Factor 130.0 H BELKIS Screen KATERINE-1 Antibody SS-A/Ro IgG Antibody SS-B/La IgG Antibody Sm (Esparza) Antibody [employer] Antibody Scl-70 Scleroderma Ab Double Strand DNA Ab Centromere B Antibody 11/21/18 11/21/18 09:40 Unknown Immature Plt Fraction Retic Count Immature Retic Fraction Retic Hgb Equivalent Total Protein (PEP) Pending Vitamin B12 TSH Free T4 Free T3 pg/dL IgG Pending IgA Pending IgM Pending Albumin (LIZETT) Pending Albumin/Globulin (LIZETT) Pending Csvwf-0-Nxyuvyyhz LIZETT Pending Vxley-0-Paoewgrio LIZETT Pending Beta-Globulins (LIZETT) Pending Gamma Globulins (LIZETT) Pending LIZETT M-Zeferino Pending Urine Immunofixation Pending Rheumatoid Factor BELKIS Screen Pending KATERINE-1 Antibody Pending SS-A/Ro IgG Antibody Pending SS-B/La IgG Antibody Pending Sm (Esparza) Antibody Pending G[employer] OPERATOR Antibody Pending Scl-70 Scleroderma Ab Pending Double Strand DNA Ab Pending Centromere B Antibody Pending POC Glucose 12/11/21/18 11/21/18 21:17 17:07 11:20 POC Glucose 125 H 121 H 201 H Clinical Impression(s) from Imaging Studies Chest X-Ray 11/19/18 18:35 IMPRESSION: Stable hyperexpansion compatible with COPD. No new or acute pathology. Electronically Signed: Quincy Abarca MD at 20:22 EST , Service support , Lumbar Spine X-Ray 11/20/18 06:25 IMPRESSION: Mild acute superior endplate fracture at L2. Electronically Signed: Bay Johansen MD at 14:05 EST Tel , Service support , Medical Necessity - Tobacco Use Smoking Status: Former smoker Assessment/Plan All Active Problems (Last Reviewed 11/19/18 @ 21:52 by Alpesh Caro MD) RAFAEL (acute kidney injury) (Acute) Elevated troponin (Acute) Acute on chronic respiratory failure with hypercapnia (Acute) Severe dehydration (Acute) Acute encephalopathy (Acute) COPD exacerbation (Acute) Acute on chronic respiratory failure with hypoxia and hypercapnia (Acute) Confusion (Resolved) Acute on chronic systolic (congestive) heart failure (Acute) Pneumothorax (Resolved) Pneumothorax on left (Resolved) RECOMMENDATIONS: 1. Continue antibiotics 2. Continue Eliquis 3. Wean supplemental oxygen as tolerated 4. Continue scheduled bronchodilators and steroids. IMPRESSIONS: 1. Acute on chronic combined respiratory failure/baseline stage IV COPD with exacerbation secondary to RSV infection Continue current supportive measures with supplemental oxygen, bronchodilators and steroids. Continue to wean supplemental oxygen as tolerated. Encourage aggressive incentive spirometer use and mobilize patient as tolerated. 2. Klebsiella cystitis Continue antibiotics as ordered. 3. Obstructive sleep apnea Continue nocturnal BiPAP therapy per home regimen. 4. Normocytic anemia The patient has already been transfused and appears to have normocytic anemia. Stool for occult blood was negative. Continue to monitor blood counts and transfuse to maintain a hemoglobin greater than 7 g/dL. 5. Chronic systolic heart failure Continue home cardiac medications including diuretics. 6. Chronic atrial fibrillation/diabetes/metabolic encephalopathy/acute kidney injury Complicates care, management, recovery and prognosis. Okay to restart Eliquis from my perspective. This note was generated with [employer] software. It may contain incorrect words, spelling, and punctuation that were not noted in checking the note before signing. Code Visit Inpatient E&M: 41259 Subs Hosp L2
[2018-11-22 07:36] LABS: Hematocrit 27.6 % (40-54); Mean Corpuscular Hgb 27.5 pg (27.0-32.0); Mean Corpuscular Volume 94.8 fL (80-94); Mean Platelet Vol. 10.6 fl (6.2-12.0); Platelet Count 171 K/mm3 (150-450); RBC Distribution Width CV 15.4 % (11.6-14.6); RBC Distribution Width SD 50.5 fl (35.1-43.9); Red Blood Count 2.91 M/mm3 (4.6-6.2); Scan Indicated on CBC? Y/N NO; White Blood Count 5.1 K/mm3 (4.4-11.0)
[2018-11-22 07:59] LABS: Anion Gap 6 (5-15); BUN 71 mg/dL (7-18); BUN/Creat Ratio 50.7 RATIO (10-20); Calcium,Total 8.8 mg/dL (8.5-10.1); Chloride 102 mmol/L (98-107); EST Glomerular Filtration Rate 53 mL/min (>60); Est Glom Filt Rate - Afr Amer 64 mL/min (>60); Estimated Creatinine Clearance 46.32 ml/min; Glucose 153 mg/dL (74-106); Potassium 4.1 mmol/L (3.5-5.1); Sodium Level 145 mmol/L (136-145)
[2018-11-22] MEDS: APIXABAN 2.5 MG TABLET PO ×2 (10:06→21:26)
[2018-11-22] MEDS: Pantoprazole Sodium 40 MG Tablet PO (10:06)
[2018-11-22] MEDS: predniSONE 20 MG Tablet 40 MG PO ×2 (14:52→14:53)
--- NOTE | 2018-11-22 15:16 | PCM.PROGNOTE ---
Patient Problems: Active and Suspected Problems (Last Reviewed 11/19/18 @ 21:52 by Alpesh Caro MD) RAFAEL (acute kidney injury) (Acute) Acute on chronic respiratory failure with hypercapnia (Acute) Severe dehydration (Acute) Acute encephalopathy (Acute) Subjective: Day #3 Rocephin All events of the past 24 hours have been reviewed. He remains afebrile. Vital signs are stable. Pulse ox is 98-100% on a 3 L nasal cannula All lab was personally reviewed. Hemoglobin is stable at 8.0. The white blood cell count today is 5.1 and platelets are 171,000. Sodium is down to 145 today and the serum bicarb is 37. BUN is 71 and the creatinine is 1.4, down from 1.61. BUN/creatinine ratio is 50.7. TSH is low at 0.06 but the T4 is 0.99 and the free T3 is low at 1.1. Stool was Hemoccult negative. B12 and folate are normal. Respiratory panel is positive for RSV B and the urine culture is positive for Klebsiella pneumoniae which is resistant to ampicillin but otherwise pansensitive. I reviewed Dr. Guevara's consult and discussed with him. He recommends that the patient follow-up in the outpatient clinic in 3 months since he has had transfusion this admission which makes interpretation of any labs for anemia inconclusive. He is coughing less today and his breathing is easier. He is more conversant with me Objective: PHYSICAL EXAM: GENERAL: alert, oriented to person and place, Cooperative, NAD ORAL: moist mucosa, no mucosal lesions NECK: No JVD, supple, trachea midline LUNGS: diminished, symmetric chest expansion, no wheezing today, no rales, still with pursed lip breathing. No conversational brathing today and no accessory muscle use today HEART: RRR, Normal S1 and S2, no rub, no gallop, frequent ectopics ABDOMEN: soft, NT, ND, BS present, no guarding with palpation EXTREMITIES: no edema, no cyanosis, no calf tenderness SKIN: No rashes, no breakdown NEUROLOGIC: no focal neurologic deficits PSYCH: appropriate, normal affect, pleasant - Physical Exam Vital Signs Temp Pulse Resp BP Pulse Ox 97.9 F 72 19 H 128/81 H 98 11/22/18 09:30 11/22/18 12:00 11/22/18 12:00 11/22/18 09:30 11/22/18 12:00 Oxygen Flow Rate (L/min) 3 Oxygen Delivery Method Nasal Cannula Weight: 147 lb 0.773 oz Body Mass Index (BMI) 19.1 Intake and Output for Last 24 Hours 11/20/18 11/21/18 11/22/18 23:59 23:59 23:59 Intake Total 3331 / 3331 1714 / 1714 640 / 640 Output Total 1600 / 1600 700 / 700 1050 / 1050 Balance 1731 / 1731 1014 / 1014 -410 / -410 Microbiology Past 72 Hours 11/19/18 18:55 Blood Culture - Preliminary Blood Culture (Wb) - Anticubital Left No growth in 48 hours. 11/19/18 18:45 Blood Culture - Preliminary Blood Culture (Wb) - Anticubital Right No growth in 48 hours. 11/21/18 08:17 Respiratory Panel (PCR) - Final Mucosa - Nasopharyngeal RSV B 11/19/18 21:03 Urine Culture - Final Urine, Clean Catch Klebsiella pneumoniae sp pneum 11/19/18 19:55 Stool Occult Blood (JEANNE) - Final Stool Laboratory Tests Past 24 Hrs 11/22/18 11/22/18 07:10 07:10 WBC 5.1 RBC 2.91 L Hgb 8.0 L Hct 27.6 L MCV 94.8 H MCH 27.5 MCHC 29.0 L RDW 15.4 H RDW Differential 50.5 H Plt Count 171 MPV 10.6 Sodium 145 Potassium 4.1 Chloride 102 Carbon Dioxide 37.0 H Anion Gap 6 BUN 71 H Creatinine 1.40 H Estim Creat Clear Calc 46.32 Est GFR (MDRD) Af Amer 64 Est GFR (MDRD) Non-Af 53 L BUN/Creatinine Ratio 50.7 H Glucose 153 H Calcium 8.8 POC Glucose 11/21/18 11/21/18 21:17 17:07 POC Glucose 125 H 121 H Medical Necessity - Tobacco Use Smoking Status: Former smoker Assessment/Plan All Active Problems (Last Reviewed 11/19/18 @ 21:52 by Alpesh Caro MD) RAFAEL (acute kidney injury) (Acute) Elevated troponin (Acute) Acute on chronic respiratory failure with hypercapnia (Acute) Severe dehydration (Acute) Acute encephalopathy (Acute) COPD exacerbation (Acute) Acute on chronic respiratory failure with hypoxia and hypercapnia (Acute) Confusion (Resolved) Acute on chronic systolic (congestive) heart failure (Acute) Pneumothorax (Resolved) Pneumothorax on left (Resolved) Impressions 1. Acute on chronic respiratory failure with hypoxemia and hypercapnia 2. RSV B infection 3. Cystitis secondary to Klebsiella pneumoniae infection 4. Hypernatremia-resolved 5. Pancytopenia with severe anemia-chronic etiology? the leukopenia and thrombocytopenia are possibly secondary to the viral infection because these conditions have resolved. He continues to have a persistent severe anemia. Hemoglobin is stable following transfusion of 2 units of packed red blood cells. 6. BPH with history of TURPs in the past-the last TURP was in 2014 7. Chronic drop foot on the right 8. Alzheimer's dementia 9. History of cervical fusion 10. History of resection of a cerebral aneurysm 11. Acute kidney injury secondary to dehydration 12. Severe dehydration 13. Elevated troponin-possibly secondary to acute renal failure versus NSTEMI 14. continues to c/o back pain that is severe. His thinks this is the reason he has gotten weak and has been unable to walk recently. The generalized weakness is likely multifactorial....Viral infection, UTI, acute renal failure, CO2 retention......laying in bed for several days.....I suspect he will need to go to SNF for strengthening prior to returning home 15. Severe cardiomyopathy with a 35% EF Continue ceftriaxone Discontinue maintenance IV of D5 half-normal saline Continue aerosolized bronchodilators Convert to p.o. prednisone in the a.m. Restart Namenda, Aricept, Imdur, Proscar and Spironolactone CT scan of the LS spine in the AM - apparently he sat down real hard into a WC and the back pain started suddenly - may have caused another compression fx Code Visit Inpatient E&M: 22759 Subs Hosp L2
[2018-11-22] MEDS: Donepezil HCl 5 MG Tablet PO (21:26)
[2018-11-22] MEDS: Ceftriaxone 1 GM/50 ML BAG IV (21:26)
[2018-11-23] VITALS (12 sets, daily range): BP systolic 122–130; BP diastolic 78–109; PULSE 60–120; RESP 12–22; TEMP 36.1–37.3; O2SAT 98–100
[2018-11-23] MEDS: Ipratropium/Albuterol Sulfate 3 ML AMPUL.NEB INHALATION ×5 (02:41→19:49)
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
[2018-11-23] MEDS: Finasteride 5 MG Tablet PO (09:10)
[2018-11-23] MEDS: Spironolactone 25 MG Tablet 12.5 MG PO (09:10)
[2018-11-23] MEDS: APIXABAN 2.5 MG TABLET PO ×2 (09:10→21:15)
[2018-11-23] MEDS: predniSONE 20 MG Tablet 40 MG PO (09:10)
[2018-11-23] MEDS: Memantine Hydrochloride 10 MG Tablet PO ×2 (09:10→21:15)
[2018-11-23] MEDS: Pantoprazole Sodium 40 MG Tablet PO (09:10)
[2018-11-23] MEDS: Isosorbide Mononitrate 30 MG Tablet PO (09:10)
--- NOTE | 2018-11-23 11:00 | PCM.PROGNOTE ---
Patient Problems: Active and Suspected Problems (Last Reviewed 11/19/18 @ 21:52 by Alpesh Caro MD) Acute on chronic respiratory failure with hypercapnia (Acute) Severe dehydration (Acute) Acute encephalopathy (Acute) Subjective: The patient was seen and examined at the bedside this morning. Events from the last 24 hours have been reviewed. The patient is currently afebrile, hemodynamically stable and maintaining appropriate oxygen saturations on 3-4 L/min via nasal cannula. He is likely going to require placement for rehabilitation based upon physical therapy impressions. Objective: The patient's most recent lab work, culture data and imaging studies have all been personally reviewed. Surface echocardiogram from February 2017 revealed a moderately dilated LV with severe global LV systolic dysfunction and an ejection fraction of 20%. There was also evidence of mild global RV systolic dysfunction with a right ventricular systolic pressure estimated to be 60 mmHg. Polysomnogram completed February 2017 revealed evidence of severe obstructive sleep apnea for which it was recommended that the patient be placed on bilevel therapy with a pressure support of 22/16 with a 1 L/min supplemental oxygen bleed in. Stool for occult blood was negative. Blood cultures are pending. Urine culture revealed the presence of Klebsiella pneumonia. CT L-spine revealed multi-level degenerative changes along with compression fractures of T11 and L1 vertebral bodies. - Physical Exam General: Alert, Cooperative, No apparent distress HEENT: Atraumatic, PERRLA, Normocephalic Oral: No Gingival or Mucosal Lesions/ Ulcerations Neck: Supple, No Nodes, Trachea Midline Lungs: No rhonchi, No wheeze, No rales, Diminished Cardiovascular: Normal S1, Normal S2, No murmurs, Irregular Rate Abdomen: Bowel Sounds Present, Soft, Non Tender, Non-Distended Extremities: No cyanosis, No edema, Clubbing Skin: No breakdown Musculoskeletal: No Tenderness to Palpation of Joints or Extremities Lymphatic: No Cervical, Supraclavicular, or Inguinal Adenopathy Neurological: Cranial nerves II-XII grossly intact, Neuro grossly intact Psych/Mental Status: Normal Affect, Appropriate Vital Signs Temp Pulse Resp BP Pulse Ox 36.2 C L 98 16 130/83 H 100 11/23/18 09:00 11/23/18 09:00 11/23/18 09:00 11/23/18 09:00 11/23/18 09:00 Oxygen Flow Rate (L/min) 4 Oxygen Delivery Method Nasal Cannula Weight: 147 lb 7.828 oz Body Mass Index (BMI) 19.1 Intake and Output for Last 24 Hours 11/21/18 11/22/18 11/23/18 23:59 23:59 23:59 Intake Total 1714 / 1714 1140 / 1140 410 / 410 Output Total 700 / 700 1400 / 1400 250 / 250 Balance 1014 / 1014 -260 / -260 160 / 160 Microbiology Past 72 Hours 11/19/18 18:55 Blood Culture - Preliminary Blood Culture (Wb) - Anticubital Left No growth in 48 hours. 11/19/18 18:45 Blood Culture - Preliminary Blood Culture (Wb) - Anticubital Right No growth in 48 hours. 11/21/18 08:17 Respiratory Panel (PCR) - Final Mucosa - Nasopharyngeal RSV B 11/19/18 21:03 Urine Culture - Final Urine, Clean Catch Klebsiella pneumoniae sp pneum Labs (Last 48 Hours) 11/20/18 11/21/18 11/21/18 00:35 03:50 11:20 WBC RBC Hgb Hct MCV MCH MCHC RDW RDW Differential Plt Count MPV Sodium Potassium Chloride Carbon Dioxide Anion Gap BUN Creatinine Estim Creat Clear Calc Est GFR (MDRD) Af Amer Est GFR (MDRD) Non-Af BUN/Creatinine Ratio Glucose Calcium Vitamin B12 > 2000 H TSH 0.06 L Free T4 0.99 Free T3 pg/dL 1.1 L Rheumatoid Factor 130.0 H POC Glucose 201 H 11/21/18 11/21/18 11/22/18 17:07 21:17 07:10 WBC 5.1 RBC 2.91 L Hgb 8.0 L Hct 27.6 L MCV 94.8 H MCH 27.5 MCHC 29.0 L RDW 15.4 H RDW Differential 50.5 H Plt Count 171 MPV 10.6 Sodium Potassium Chloride Carbon Dioxide Anion Gap BUN Creatinine Estim Creat Clear Calc Est GFR (MDRD) Af Amer Est GFR (MDRD) Non-Af BUN/Creatinine Ratio Glucose Calcium Vitamin B12 TSH Free T4 Free T3 pg/dL Rheumatoid Factor POC Glucose 121 H 125 H 11/22/18 07:10 WBC RBC Hgb Hct MCV MCH MCHC RDW RDW Differential Plt Count MPV Sodium 145 Potassium 4.1 Chloride 102 Carbon Dioxide 37.0 H Anion Gap 6 BUN 71 H Creatinine 1.40 H Estim Creat Clear Calc 46.32 Est GFR (MDRD) Af Amer 64 Est GFR (MDRD) Non-Af 53 L BUN/Creatinine Ratio 50.7 H Glucose 153 H Calcium 8.8 Vitamin B12 TSH Free T4 Free T3 pg/dL Rheumatoid Factor POC Glucose Microbiology 11/19/18 18:55 Blood Culture (Wb) - Anticubital Left Blood Culture - Preliminary No growth in 48 hours. 11/19/18 18:45 Blood Culture (Wb) - Anticubital Right Blood Culture - Preliminary No growth in 48 hours. 11/21/18 08:17 Mucosa - Nasopharyngeal Respiratory Panel (PCR) - Final RSV B 11/19/18 21:03 Urine, Clean Catch Urine Culture - Final Klebsiella pneumoniae sp pneum Clinical Impression(s) from Imaging Studies Chest X-Ray 11/19/18 18:35 IMPRESSION: Stable hyperexpansion compatible with COPD. No new or acute pathology. Electronically Signed: Quincy Abarca MD at 20:22 EST , Service support , Lumbar Spine X-Ray 11/20/18 06:25 IMPRESSION: Mild acute superior endplate fracture at L2. Electronically Signed: Bay Johansen MD at 14:05 EST Tel , Service support , Lumbar Spine CT 11/23/18 05:55 IMPRESSION: Multilevel degenerative changes, as described above. Status post laminectomies at the L4-5 and L5-S1 levels. Status post kyphoplasty at the L2 level. Compression fractures of the T11 and L1 1 vertebral bodies were also present on the November 20 exam, but were not present on the October 10 exam. Electronically Signed: Jose Martin Hamilton MD at 7:49 EST , Service support , Medical Necessity - Tobacco Use Smoking Status: Former smoker Assessment/Plan All Active Problems (Last Reviewed 11/19/18 @ 21:52 by Alpesh Caro MD) RAFAEL (acute kidney injury) (Acute) Elevated troponin (Acute) Acute on chronic respiratory failure with hypercapnia (Acute) Severe dehydration (Acute) Acute encephalopathy (Acute) COPD exacerbation (Acute) Acute on chronic respiratory failure with hypoxia and hypercapnia (Acute) Confusion (Resolved) Acute on chronic systolic (congestive) heart failure (Acute) Pneumothorax (Resolved) Pneumothorax on left (Resolved) RECOMMENDATIONS: 1. Continue antibiotics 2. Continue Eliquis 3. Wean supplemental oxygen as tolerated 4. Continue scheduled bronchodilators and steroids. Plan for prolonged steroid taper at discharge. 5. Please ensure that the patient has a follow-up visit in the pulmonary medicine clinic within 2 weeks of his discharge from the hospital. IMPRESSIONS: 1. Acute on chronic combined respiratory failure/baseline stage IV COPD with exacerbation secondary to RSV infection Continue current supportive measures with supplemental oxygen, bronchodilators and steroids. Continue to wean supplemental oxygen as tolerated. Encourage aggressive incentive spirometer use and mobilize patient as tolerated. 2. Klebsiella cystitis Continue antibiotics as ordered. 3. Obstructive sleep apnea Continue nocturnal BiPAP therapy per home regimen. 4. Normocytic anemia The patient has already been transfused and appears to have normocytic anemia. Stool for occult blood was negative. Continue to monitor blood counts and transfuse to maintain a hemoglobin greater than 7 g/dL. 5. Chronic systolic heart failure Continue home cardiac medications including diuretics. 6. Chronic atrial fibrillation/diabetes/metabolic encephalopathy/acute kidney injury Complicates care, management, recovery and prognosis. Anticipate group home placement at discharge. This note was generated with [employer] dictation software. It may contain incorrect words, spelling, and punctuation that were not noted in checking the note before signing. Code Visit Inpatient E&M: 80605 Subs Hosp L2
--- NOTE | 2018-11-23 11:03 | PN_ITS ---
Patient Problems: Active and Suspected Problems (Last Reviewed 11/19/18 @ 21:52 by Alpesh Caro MD) Acute on chronic respiratory failure with hypercapnia (Acute) Severe dehydration (Acute) Acute encephalopathy (Acute) Subjective: The patient was seen and examined at the bedside this morning. Events from the last 24 hours have been reviewed. The patient is currently afebrile, hemodynamically stable and maintaining appropriate oxygen saturations on 3-4 L/min via nasal cannula. He is likely going to require placement for r ehabilitation based upon physical therapy impressions. Objective: The patient's most recent lab work, culture data and imaging studies have all been personally reviewed. Surface echocardiogram from February 2017 revealed a moderately dilated LV with severe global LV systolic dysfunction and an ejection fraction of 20%. There was also evidence of mild global RV systolic dysfunction with a right ventricular systolic pressure estimated to be 60 mmHg. Polysomnogram completed February 2017 revealed evidence of severe obstructive sleep apnea for which it was recommended that the patient be placed on bilevel therapy with a pressure support of 22/16 with a 1 L/min supplemental oxygen bleed in. Stool for occult blood was negative. Blood cultures are pending. Urine culture revealed the presence of Klebsiella pneumonia. CT L-spine revealed multi-level degenerative changes along with compression fractures of T11 and L1 vertebral bodies. - Physical Exam General: Alert, Cooperative, No apparent distress HEENT: Atraumatic, PERRLA, Normocephalic Oral: No Gingival or Mucosal Lesions/ Ulcerations Neck: Supple, No Nodes, Trachea Midline Lungs: No rhonchi, No wheeze, No rales, Diminished Cardiovascular: Normal S1, Normal S2, No murmurs, Irregular Rate Abdomen: Bowel Sounds Present, Soft, Non Tender, Non-Distended Extremities: No cyanosis, No edema, Clubbing Skin: No breakdown Musculoskeletal: No Tenderness to Palpation of Joints or Extremities Lymphatic: No Cervical, Supraclavicular, or Inguinal Adenopathy Neurological: Cranial nerves II-XII grossly intact, Neuro grossly intact Psych/Mental Status: Normal Affect, Appropriate Vital Signs Temp Pulse Resp BP Pulse Ox 36.2 C L 98 16 130/83 H 100 11/23/18 09:00 11/23/18 09:00 11/23/18 09:00 11/23/18 09:00 11/23/18 09:00 Oxygen Flow Rate (L/min) 4 Oxygen Delivery Method Nasal Cannula Weight: 147 lb 7.828 oz Body Mass Index (BMI) 19.1 Intake and Output for Last 24 Hours 11/21/18 11/22/18 11/23/18 23:59 23:59 23:59 Intake Total 1714 / 1714 1140 / 1140 410 / 410 Output Total 700 / 700 1400 / 1400 250 / 250 Balance 1014 / 1014 -260 / -260 160 / 160 Microbiology Past 72 Hours 11/19/18 18:55 Blood Culture - Preliminary Blood Culture (Wb) - Anticubital Left No growth in 48 hours. 11/19/18 18:45 Blood Culture - Preliminary Blood Culture (Wb) - Anticubital Right No growth in 48 hours. 11/21/18 08:17 Respiratory Panel (PCR) - Final Mucosa - Nasopharyngeal RSV B 11/19/18 21:03 Urine Culture - Final Urine, Clean Catch Klebsiella pneumoniae sp pneum Labs (Last 48 Hours) 11/20/18 11/21/18 11/21/18 00:35 03:50 11:20 WBC RBC Hgb Hct MCV MCH MCHC RDW RDW Differential Plt Count MPV Sodium Potassium Chloride Carbon Dioxide Anion Gap BUN Creatinine Estim Creat Clear Calc Est GFR (MDRD) Af Amer Est GFR (MDRD) Non-Af BUN/Creatinine Ratio Glucose Calcium Vitamin B12 > 2000 H TSH 0.06 L Free T4 0.99 Free T3 pg/dL 1.1 L Rheumatoid Factor 130.0 H POC Glucose 201 H 11/21/18 11/21/18 11/22/18 17:07 21:17 07:10 WBC 5.1 RBC 2.91 L Hgb 8.0 L Hct 27.6 L MCV 94.8 H MCH 27.5 MCHC 29.0 L RDW 15.4 H RDW Differential 50.5 H Plt Count 171 MPV 10.6 Sodium Potassium Chloride Carbon Dioxide Anion Gap BUN Creatinine Estim Creat Clear Calc Est GFR (MDRD) Af Amer Est GFR (MDRD) Non-Af BUN/Creatinine Ratio Glucose Calcium Vitamin B12 TSH Free T4 Free T3 pg/dL Rheumatoid Factor POC Glucose 121 H 125 H 11/22/18 07:10 WBC RBC Hgb Hct MCV MCH MCHC RDW RDW Differential Plt Count MPV Sodium 145 Potassium 4.1 Chloride 102 Carbon Dioxide 37.0 H Anion Gap 6 BUN 71 H Creatinine 1.40 H Estim Creat Clear Calc 46.32 Est GFR (MDRD) Af Amer 64 Est GFR (MDRD) Non-Af 53 L BUN/Creatinine Ratio 50.7 H Glucose 153 H Calcium 8.8 Vitamin B12 TSH Free T4 Free T3 pg/dL Rheumatoid Factor POC Glucose Microbiology 11/19/18 18:55 Blood Culture (Wb) - Anticubital Left Blood Culture - Preliminary No growth in 48 hours. 11/19/18 18:45 Blood Culture (Wb) - Anticubital Right Blood Culture - Preliminary No growth in 48 hours. 11/21/18 08:17 Mucosa - Nasopharyngeal Respiratory Panel (PCR) - Final RSV B 11/19/18 21:03 Urine, Clean Catch Urine Culture - Final Klebsiella pneumoniae sp pneum Clinical Impression(s) from Imaging Studies Chest X-Ray 11/19/18 18:35 IMPRESSION: Stable hyperexpansion compatible with COPD. No new or acute pathology. Electronically Signed: Quincy Abarca MD at 20:22 EST , Service support , Lumbar Spine X-Ray 11/20/18 06:25 IMPRESSION: Mild acute superior endplate fracture at L2. Electronically Signed: Bay Johansen MD at 14:05 EST Tel , Service support , Lumbar Spine CT 11/23/18 05:55 IMPRESSION: Multilevel degenerative changes, as described above. Status post laminectomies at the L4-5 and L5-S1 levels. Status post kyphoplasty at the L2 level. Compression fractures of the T11 and L1 1 vertebral bodies were also present on the November 20 exam, but were not present on the October 10 exam. Electronically Signed: Jose Martin Hamilton MD at 7:49 EST , Service support , Medical Necessity - Tobacco Use Smoking Status: Former smoker Assessment/Plan All Active Problems (Last Reviewed 11/19/18 @ 21:52 by Alpesh Caro MD) RAFAEL (acute kidney injury) (Acute) Elevated troponin (Acute) Acute on chronic respiratory failure with hypercapnia (Acute) Severe dehydration (Acute) Acute encephalopathy (Acute) COPD exacerbation (Acute) Acute on chronic respiratory failure with hypoxia and hypercapnia (Acute) Confusion (Resolved) Acute on chronic systolic (congestive) heart failure (Acute) Pneumothorax (Resolved) Pneumothorax on left (Resolved) RECOMMENDATIONS: 1. Continue antibiotics 2. Continue Eliquis 3. Wean supplemental oxygen as tolerated 4. Continue scheduled bronchodilators and steroids. Plan for prolonged steroid taper at discharge. 5. Please ensure that the patient has a follow-up visit in the pulmonary medicine clinic within 2 weeks of his discharge from the hospital. IMPRESSIONS: 1. Acute on chronic combined respiratory failure/baseline stage IV COPD with exacerbation secondary to RSV infection Continue current supportive measures with supplemental oxygen, bronchodilators and steroids. Continue to wean supplemental oxygen as tolerated. Encourage aggressive incentive spirometer use and mobilize patient as tolerated. 2. Klebsiella cystitis Continue antibiotics as ordered. 3. Obstructive sleep apnea Continue nocturnal BiPAP therapy per home regimen. 4. Normocytic anemia The patient has already been transfused and appears to have normocytic anemia. Stool for occult blood was negative. Continue to monitor blood counts and transfuse to maintain a hemoglobin greater than 7 g/dL. 5. Chronic systolic heart failure Continue home cardiac medications including diuretics. 6. Chronic atrial fibrillation/diabetes/metabolic encephalopathy/acute kidney injury Complicates care, management, recovery and prognosis. Anticipate [facility]ci placement at discharge. This note was generated with [employer] dictation software. It may contain incorrect words, spelling, and punctuation that were not noted in checking the note before signing. Code Visit Inpatient E&M: 42129 Subs Hosp L2
--- NOTE | 2018-11-23 12:30 | CASEMGMT ---
Received phone call from Irene at [facility], wanting update on patient. Verbal update given from Dr. Marroquin's progress note for today. Irene would like update re: d/c date/time. MANJULA Lopez notified of verbal update given to [facility]. Deja Garner LPN Clinical Support
--- NOTE | 2018-11-23 13:39 | RAD_ITS ---
STUDY: X-RAY CHEST REASON FOR EXAM: Male, 68 years old. Shortness of breath, infiltrate failure TECHNIQUE: Single AP portable view of the chest. COMPARISON: Previous study of 11/19/2018 FINDINGS: There is a left-sided bipolar pacemaker. panel monitor leads are present. There are bilateral upper lobe infiltrates appearing similar to the previous study. There is left costophrenic angle blunting. Normal size heart. Normal mediastinum and yee. Normal visualized pulmonary arteries. There are calcified plaques of the aortic arch. Normal visualized thoracic spine. Normal visualized ribs, clavicles, and shoulders. There is no demonstrated abnormality of the visualized soft tissue structures of the upper abdomen. RAD/Chest 1 View (Portable) IMPRESSION: 1. Bilateral upper lobe infiltrates stable in the interval. 2. Left costophrenic angle blunting consistent with small effusion or pleural reaction, also stable in the interval. 3. A bipolar left-sided pacemaker is present. Electronically Signed: Desmond Ty MD at 17:22 EST , Service support ,
[2018-11-23 16:07] LABS: ANTINUCLEAR ANTIBODIES DIRECT Positive (Negative); Anti-Centromere B Ab <0.2 AI (0.0-0.9); Anti-Chromatin <0.2 AI (0.0-0.9); Anti-Jo <0.2 AI (0.0-0.9); Anti-Scleroderma-70 AB <0.2 AI (0.0-0.9); RNP Ab 0.4 AI (0.0-0.9); SJOGREN'S Anti-SS-A test 1.2 AI (0.0-0.9); SJOGREN'S Anti-SS-B test < 0.2 AI (0.0-0.9); Smith Ab <0.2 AI (0.0-0.9)
--- NOTE | 2018-11-23 16:35 | CASEMGMT ---
Patient is going to be going to [facility] at d/c. MANJULA spoke with Irnee at [facility] and they are not aware of bi-pap for patient. MANJULA called PCU and spoke with charge weigher, Kalani letting her know patient cannot be discharged to [facility] today as they do not have a bi-pap for him. Jessica GARCIA MSW
--- NOTE | 2018-11-23 20:21 | PCM.PROGNOTE ---
Patient Problems: Active and Suspected Problems (Last Reviewed 11/19/18 @ 21:52 by Alpesh Caro MD) Acute on chronic respiratory failure with hypercapnia (Acute) Severe dehydration (Acute) Acute encephalopathy (Acute) Subjective: All events of the past 24 hours been reviewed. Heart rate has picked up over the past 24-48 hours. Blood pressure is stable. He is 100% saturated on 3 L nasal cannula. Chest x-ray today shows stable bilateral upper lobe infiltrates, left costophrenic angle blunting. No signs of congestive heart failure. CT of the lumbar spine shows 2 compression fractures at T11 and L1 were not present on 10/10/2018. He is not complaining of back pain to me today. He is appropriate and answering questions and following commands. Breathing is less labored today and there is minimal accessory muscle use Objective: GENERAL: alert, oriented to person and place, Cooperative, NAD ORAL: moist mucosa, no mucosal lesions NECK: No JVD, supple, trachea midline LUNGS: diminished, symmetric chest expansion, no wheezing today, no rales, still with pursed lip breathing. No conversational breathing today and minimal accessory muscle use today HEART: irreg, Normal S1 and S2, no rub, no gallop, frequent ectopics on telemetry...not always easy to pick out the T waves ABDOMEN: soft, NT, ND, BS present, no guarding with palpation EXTREMITIES: no edema, no cyanosis, no calf tenderness SKIN: No rashes, no breakdown NEUROLOGIC: no focal neurologic deficits PSYCH: appropriate, normal affect, pleasant - Physical Exam Vital Signs Temp Pulse Resp BP Pulse Ox 99.1 F 115 H 18 122/78 H 100 11/23/18 19:40 11/23/18 19:40 11/23/18 19:40 11/23/18 19:40 11/23/18 19:40 Oxygen Flow Rate (L/min) 3 Oxygen Delivery Method Bi-pap Weight: 147 lb 7.828 oz Body Mass Index (BMI) 19.1 Intake and Output for Last 24 Hours 11/21/18 11/22/18 11/23/18 23:59 23:59 23:59 Intake Total 1714 / 1714 1140 / 1140 1210 / 1210 Output Total 700 / 700 1400 / 1400 750 / 750 Balance 1014 / 1014 -260 / -260 460 / 460 Microbiology Past 72 Hours 11/19/18 18:55 Blood Culture - Preliminary Blood Culture (Wb) - Anticubital Left No growth in 48 hours. 11/19/18 18:45 Blood Culture - Preliminary Blood Culture (Wb) - Anticubital Right No growth in 48 hours. 11/21/18 08:17 Respiratory Panel (PCR) - Final Mucosa - Nasopharyngeal RSV B 11/19/18 21:03 Urine Culture - Final Urine, Clean Catch Klebsiella pneumoniae sp pneum Medical Necessity - Tobacco Use Smoking Status: Former smoker Assessment/Plan All Active Problems (Last Reviewed 11/19/18 @ 21:52 by Alpesh Caro MD) RAFAEL (acute kidney injury) (Acute) Elevated troponin (Acute) Acute on chronic respiratory failure with hypercapnia (Acute) Severe dehydration (Acute) Acute encephalopathy (Acute) COPD exacerbation (Acute) Acute on chronic respiratory failure with hypoxia and hypercapnia (Acute) Confusion (Resolved) Acute on chronic systolic (congestive) heart failure (Acute) Pneumothorax (Resolved) Pneumothorax on left (Resolved) Impressions 1. Acute on chronic respiratory failure with hypoxemia and hypercapnia 2. RSV B infection 3. Cystitis secondary to Klebsiella pneumoniae infection 4. Hypernatremia-resolved 5. Pancytopenia with severe anemia-chronic etiology? the leukopenia and thrombocytopenia are possibly secondary to the viral infection because these conditions have resolved. He continues to have a persistent severe anemia. Hemoglobin is stable following transfusion of 2 units of packed red blood cells. 6. BPH with history of TURPs in the past-the last TURP was in 2014 7. Chronic drop foot on the right 8. Alzheimer's dementia 9. History of cervical fusion 10. History of resection of a cerebral aneurysm 11. Acute kidney injury secondary to dehydration 12. Severe dehydration 13. Elevated troponin-possibly secondary to acute renal failure versus NSTEMI 14. continues to c/o back pain that is severe. His thinks this is the reason he has gotten weak and has been unable to walk recently. The generalized weakness is likely multifactorial....Viral infection, UTI, acute renal failure, CO2 retention......laying in bed for several days.....I suspect he will need to go to SNF for strengthening prior to returning home 15. Severe cardiomyopathy with a 35% EF 16. New compression fractures at T11 and L1 17. Probable osteoporosis Check a testosterone level, vitamin D1, 25, PTH Wean oxygen to keep the O2 sat at 90 and up to 93%. A long steroid taper at discharge Will need to follow-up in the pulmonary medicine clinic in 2 weeks after discharge Discharge to nursing in the a.m. Scheduled Tylenol 1000 mg every 8 hours for pain and oxycodone 5 mg every 8 hours. Code Visit Inpatient E&M: 33467 Subs Hosp L2
[2018-11-23] MEDS: Acetaminophen 500 MG Tablet 1000 MG PO (21:15)
[2018-11-23] MEDS: oxyCODONE 5 MG Tablet PO (21:15)
[2018-11-23] MEDS: Donepezil HCl 5 MG Tablet PO (21:15)
[2018-11-23] MEDS: Ceftriaxone 1 GM/50 ML BAG IV (21:16)
[2018-11-23] MEDS: 0.9% NaCl Peripheral Flush Adult/Peds IV (21:18)
[2018-11-23 21:52] LABS: PTHIN 98.7 pg/mL (18.4-80.1)
[2018-11-24] VITALS (23 sets, daily range): BP systolic 103–124; BP diastolic 76–93; PULSE 85–125; RESP 12–21; TEMP 36.3–37.3; O2SAT 96–100
[2018-11-24] MEDS: Ipratropium/Albuterol Sulfate 3 ML AMPUL.NEB INHALATION ×6 (02:15→22:52)
[2018-11-24] MEDS: Acetaminophen 500 MG Tablet 1000 MG PO ×3 (06:11→21:33)
[2018-11-24] MEDS: oxyCODONE 5 MG Tablet PO ×3 (06:11→21:34)
[2018-11-24 07:12] LABS: Absolute Lymphocyte Count 0.39 X10^3/ul (0.83-4.51); Absolute Neutrophil Count 3.9 X10^3/uL (2.0-7.7); Hematocrit 26.6 % (40-54); Hemoglobin 7.4 g/dl (13.0-16.5); Lymphocyte # 0.39 X10^3/ul (4.0); Lymphocyte % 7.9 % (19-41); Mean Corp Hgb Conc 27.8 g/gl (32-36); Mean Corpuscular Hgb 27.5 pg (27.0-32.0); Mean Corpuscular Volume 98.9 fL (80-94); Mean Platelet Vol. 10.1 fl (6.2-12.0); Monocyte# 0.61 X10^3/uL; Monocyte% 12.3 % (0-10); Neutrophil # 3.94 X10^3/uL (2.7-7.7); Neutrophil % 79.4 % (47-70); Platelet Count 146 K/mm3 (150-450); RBC Distribution Width CV 15.2 % (11.6-14.6); RBC Distribution Width SD 51.5 fl (35.1-43.9); Red Blood Count 2.69 M/mm3 (4.6-6.2)
[2018-11-24 07:13] LABS: Differential Indicated SCAN CRITERIA MET; POSITIVE COUNT NO; POSITIVE DIFFERENTIAL YES; POSITIVE MORPHOLOGY NO
[2018-11-24 07:24] LABS: Anion Gap 0 (5-15); BUN 46 mg/dL (7-18); BUN/Creat Ratio 41.1 RATIO (10-20); Calcium,Total 8.6 mg/dL (8.5-10.1); Chloride 104 mmol/L (98-107); Creatinine, Serum 1.12 mg/dL (0.70-1.30); EST Glomerular Filtration Rate 69 mL/min (>60); Est Glom Filt Rate - Afr Amer 83 mL/min (>60); Glucose 121 mg/dL (74-106); Potassium 4.6 mmol/L (3.5-5.1); Sodium Level 148 mmol/L (136-145)
--- NOTE | 2018-11-24 07:30 | PCM.PROGNOTE ---
Patient Problems: Active and Suspected Problems (Last Reviewed 11/19/18 @ 21:52 by Alpesh Caro MD) Acute on chronic respiratory failure with hypercapnia (Acute) Severe dehydration (Acute) Acute encephalopathy (Acute) Subjective: The patient was seen and examined at the bedside this morning. Events from the last 24 hours have been reviewed. The patient is currently afebrile, hemodynamically stable and maintaining appropriate oxygen saturations on 3 L/min via nasal cannula. The patient is currently overall net +3.1 L for the admission. There are tentative plans for potential discharge to SNF today. Objective: The patient's most recent lab work, culture data and imaging studies have all been personally reviewed. Surface echocardiogram from February 2017 revealed a moderately dilated LV with severe global LV systolic dysfunction and an ejection fraction of 20%. There was also evidence of mild global RV systolic dysfunction with a right ventricular systolic pressure estimated to be 60 mmHg. Polysomnogram completed February 2017 revealed evidence of severe obstructive sleep apnea for which it was recommended that the patient be placed on bilevel therapy with a pressure support of 22/16 with a 1 L/min supplemental oxygen bleed in. Stool for occult blood was negative. Blood cultures are pending. Urine culture revealed the presence of Klebsiella pneumonia. Respiratory viral panel was positive for RSV. - Physical Exam General: Alert, Cooperative, No apparent distress HEENT: Atraumatic, PERRLA, Normocephalic Oral: No Gingival or Mucosal Lesions/ Ulcerations Neck: Supple, No Nodes, Trachea Midline Lungs: No rhonchi, No wheeze, No rales, Diminished, - - Improved air movement from previous Cardiovascular: Regular rate, Normal S1, Normal S2, No murmurs Abdomen: Bowel Sounds Present, Soft, Non Tender Extremities: No cyanosis, No edema, Clubbing Skin: No breakdown Musculoskeletal: No Tenderness to Palpation of Joints or Extremities Lymphatic: No Cervical, Supraclavicular, or Inguinal Adenopathy Neurological: Cranial nerves II-XII grossly intact, Neuro grossly intact Psych/Mental Status: Normal Affect, Appropriate Vital Signs Temp Pulse Resp BP Pulse Ox 36.3 C L 113 H 19 H 123/93 H 98 11/24/18 06:12 11/24/18 06:12 11/24/18 06:12 11/24/18 06:12 11/24/18 06:12 Oxygen Flow Rate (L/min) 3 Oxygen Delivery Method Bi-pap Weight: 141 lb 15.643 oz Body Mass Index (BMI) 19.1 Intake and Output for Last 24 Hours 11/22/18 11/23/18 11/24/18 23:59 23:59 23:59 Intake Total 1140 / 1140 1670 / 1670 Output Total 1400 / 1400 1050 / 1050 Balance -260 / -260 620 / 620 Microbiology Past 72 Hours 11/19/18 18:55 Blood Culture - Preliminary Blood Culture (Wb) - Anticubital Left No growth in 48 hours. 11/19/18 18:45 Blood Culture - Preliminary Blood Culture (Wb) - Anticubital Right No growth in 48 hours. 11/21/18 08:17 Respiratory Panel (PCR) - Final Mucosa - Nasopharyngeal RSV B 11/19/18 21:03 Urine Culture - Final Urine, Clean Catch Klebsiella pneumoniae sp pneum Laboratory Tests Past 24 Hrs 11/23/18 11/23/18 11/23/18 21:05 21:05 21:05 WBC RBC Hgb Hct MCV MCH MCHC RDW RDW Differential Plt Count MPV Immature Gran % (Auto) Neut % (Auto) Lymph % (Auto) [place] % (Auto) Eos % (Auto) Baso % (Auto) Absolute Neuts (auto) Absolute Lymphs (auto) Total Counted Sodium Potassium Chloride Carbon Dioxide Anion Gap BUN Creatinine Estim Creat Clear Calc Est GFR (MDRD) Af Amer Est GFR (MDRD) Non-Af BUN/Creatinine Ratio Glucose Calcium Vit D 1,25-Dihydroxy Pending Free Testosterone Pending PTH Intact 98.7 H 11/24/18 11/24/18 06:45 06:45 WBC 5.0 RBC 2.69 L Hgb 7.4 L Hct 26.6 L MCV 98.9 H MCH 27.5 MCHC 27.8 L RDW 15.2 H RDW Differential 51.5 H Plt Count 146 L MPV 10.1 Immature Gran % (Auto) 0.400 Neut % (Auto) 79.4 H Lymph % (Auto) 7.9 L [place] % (Auto) 12.3 H Eos % (Auto) 0.0 Baso % (Auto) 0.0 Absolute Neuts (auto) 3.9 Absolute Lymphs (auto) 0.39 L Total Counted Pending Sodium 148 H Potassium 4.6 Chloride 104 Carbon Dioxide 44.0 H Anion Gap 0 L BUN 46 H Creatinine 1.12 Estim Creat Clear Calc 55.90 Est GFR (MDRD) Af Amer 83 Est GFR (MDRD) Non-Af 69 BUN/Creatinine Ratio 41.1 H Glucose 121 H Calcium 8.6 Vit D 1,25-Dihydroxy Free Testosterone PTH Intact Clinical Impression(s) from Imaging Studies Chest X-Ray 11/19/18 18:35 IMPRESSION: Stable hyperexpansion compatible with COPD. No new or acute pathology. Electronically Signed: Quincy Abarca MD at 20:22 EST , Service support , Lumbar Spine X-Ray 11/20/18 06:25 IMPRESSION: Mild acute superior endplate fracture at L2. Electronically Signed: Bay Johansen MD at 14:05 EST Tel , Service support , Lumbar Spine CT 11/23/18 05:55 IMPRESSION: Multilevel degenerative changes, as described above. Status post laminectomies at the L4-5 and L5-S1 levels. Status post kyphoplasty at the L2 level. Compression fractures of the T11 and L1 1 vertebral bodies were also present on the November 20 exam, but were not present on the October 10 exam. Electronically Signed: Jose Martin Hamilton MD at 7:49 EST , Service support , Chest X-Ray 11/23/18 13:39 IMPRESSION: 1. Bilateral upper lobe infiltrates stable in the interval. 2. Left costophrenic angle blunting consistent with small effusion or pleural reaction, also stable in the interval. 3. A bipolar left-sided pacemaker is present. Electronically Signed: Desmond Ty MD at 17:22 EST , Service support , Medical Necessity - Tobacco Use Smoking Status: Former smoker Assessment/Plan All Active Problems (Last Reviewed 11/19/18 @ 21:52 by Alpesh Crao MD) RAFAEL (acute kidney injury) (Acute) Elevated troponin (Acute) Acute on chronic respiratory failure with hypercapnia (Acute) Severe dehydration (Acute) Acute encephalopathy (Acute) COPD exacerbation (Acute) Acute on chronic respiratory failure with hypoxia and hypercapnia (Acute) Confusion (Resolved) Acute on chronic systolic (congestive) heart failure (Acute) Pneumothorax (Resolved) Pneumothorax on left (Resolved) RECOMMENDATIONS: 1. Continue antibiotics to complete treatment course for cystitis. 2. Continue Eliquis 3. Wean supplemental oxygen as tolerated 4. Continue scheduled bronchodilators and steroids. Plan for prolonged steroid taper at discharge. 5. Please ensure that the patient has a follow-up visit in the pulmonary medicine clinic within 2 weeks of his discharge from the hospital. IMPRESSIONS: 1. Acute on chronic combined respiratory failure/baseline stage IV COPD with exacerbation secondary to RSV infection Continue current supportive measures with supplemental oxygen, bronchodilators and steroids. Continue to wean supplemental oxygen as tolerated. Encourage aggressive incentive spirometer use and mobilize patient as tolerated. 2. Klebsiella cystitis Continue antibiotics as ordered. 3. Obstructive sleep apnea Continue nocturnal BiPAP therapy per home regimen. 4. Normocytic anemia The patient has already been transfused and appears to have normocytic anemia. Stool for occult blood was negative. Continue to monitor blood counts and transfuse to maintain a hemoglobin greater than 7 g/dL. 5. Chronic systolic heart failure Continue home cardiac medications including diuretics. 6. Chronic atrial fibrillation/diabetes/metabolic encephalopathy/acute kidney injury Complicates care, management, recovery and prognosis. Tentative plans for discharge to correction facility today. This note was generated with [employer] dictation software. It may contain incorrect words, spelling, and punctuation that were not noted in checking the note before signing. Code Visit Inpatient E&M: 40483 Subs Hosp L2
--- NOTE | 2018-11-24 08:01 | CASEMGMT ---
Received message from Irene at [facility]. Patient apparently has bipap at home. He could take his home unit. Patient can be d/c to [facility] when ready. Jessica GARCIA MSW
[2018-11-24 08:02] LABS: Anisocytosis 1+; Hypochromasia 3+; Microcytosis RARE; Ovalocyte 2+; Platelet Estimate ADEQUATE (ADEQ); Polychromasia RARE
[2018-11-24 08:03] LABS: Acanthocytes RARE; Schistocytes 1+; Tear Drop Cell 1+
[2018-11-24] MEDS: predniSONE 20 MG Tablet 40 MG PO (08:19)
[2018-11-24 08:45] LABS: Anti-dsDNA Ab <1 IU/mL (0-9)
[2018-11-24] MEDS: Finasteride 5 MG Tablet PO (10:27)
[2018-11-24] MEDS: Pantoprazole Sodium 40 MG Tablet PO (10:27)
[2018-11-24] MEDS: Isosorbide Mononitrate 30 MG Tablet PO (10:27)
[2018-11-24] MEDS: APIXABAN 2.5 MG TABLET PO ×2 (10:27→21:36)
[2018-11-24] MEDS: Memantine Hydrochloride 10 MG Tablet PO ×2 (10:27→21:33)
[2018-11-24] MEDS: Spironolactone 25 MG Tablet 12.5 MG PO (10:27)
--- NOTE | 2018-11-24 14:43 | PN_ITS ---
Patient Problems: Active and Suspected Problems (Last Reviewed 11/19/18 @ 21:52 by Alpesh Caro MD) Acute on chronic respiratory failure with hypercapnia (Acute) Severe dehydration (Acute) Acute encephalopathy (Acute) Subjective: All events of the past 24 hours been reviewed. He is afebrile. Heart rate has ranged from 105-121 over the past 24 hours. Blood pressure stable at 113/89. Respiratory rate is 18 and he is 100% saturated on a 3 L nasal cannula. I and O is inaccurate secondary to urinary incontinence. Serum bicarb is 44 today up from 37 on 11/22/2018. BUN is 46, down from 71 on 11/22/2018 and the creatinine is 1.12 today. The back pain is better with the scheduled medications No nausea and no abdominal pain, no chest pain. Objective: GENERAL: alert, oriented to person and place, Cooperative, NAD ORAL: moist mucosa, no mucosal lesions NECK: No JVD, supple, trachea midline LUNGS: diminished, symmetric chest expansion, positive rhonchi, no wheezing today, no rales, still with pursed lip breathing. No conversational breathing today and minimal accessory muscle use today HEART: irreg, Normal S1 and S2, no rub, no gallop, frequent ectopics on telemetry...not always easy to pick out the T waves, tachycardic ABDOMEN: soft, NT, ND, BS present, no guarding with palpation EXTREMITIES: no edema, no cyanosis, no calf tenderness SKIN: No rashes, no breakdown NEUROLOGIC: no focal neurologic deficits PSYCH: appropriate, normal affect, pleasant - Physical Exam Vital Signs Temp Pulse Resp BP Pulse Ox 97.8 F 105 H 18 113/89 H 100 11/24/18 10:26 11/24/18 11:12 11/24/18 11:12 11/24/18 10:26 11/24/18 10:26 Oxygen Flow Rate (L/min) 3 Oxygen Delivery Method Nasal Cannula Weight: 141 lb 15.643 oz Body Mass Index (BMI) 19.1 Intake and Output for Last 24 Hours 11/22/18 11/23/18 11/24/18 23:59 23:59 23:59 Intake Total 1140 / 1140 1670 / 1670 700 / 700 Output Total 1400 / 1400 1050 / 1050 Balance -260 / -260 620 / 620 700 / 700 Microbiology Past 72 Hours 11/19/18 18:55 Blood Culture - Preliminary Blood Culture (Wb) - Anticubital Left No growth in 48 hours. 11/19/18 18:45 Blood Culture - Preliminary Blood Culture (Wb) - Anticubital Right No growth in 48 hours. 11/21/18 08:17 Respiratory Panel (PCR) - Final Mucosa - Nasopharyngeal RSV B 11/19/18 21:03 Urine Culture - Final Urine, Clean Catch Klebsiella pneumoniae sp pneum Laboratory Tests Past 24 Hrs 11/21/18 11/23/18 11/23/18 Unknown 21:05 21:05 WBC RBC Hgb Hct MCV MCH MCHC RDW RDW Differential Plt Count MPV Immature Gran % (Auto) Neut % (Auto) Lymph % (Auto) [place] % (Auto) Eos % (Auto) Baso % (Auto) Absolute Neuts (auto) Absolute Lymphs (auto) Total Counted Platelet Estimate Polychromasia Hypochromasia Anisocytosis Microcytosis Tear Drop Cells Ovalocytes Acanthocytes (Spur) Schistocytes Sodium Potassium Chloride Carbon Dioxide Anion Gap BUN Creatinine Estim Creat Clear Calc Est GFR (MDRD) Af Amer Est GFR (MDRD) Non-Af BUN/Creatinine Ratio Glucose Calcium Vit D 1,25-Dihydroxy Pending Free Testosterone PTH Intact 98.7 H BELKIS Screen Positive H KATERINE-1 Antibody <0.2 SS-A/Ro IgG Antibody 1.2 H SS-B/La IgG Antibody < 0.2 Sm (Esparza) Antibody <0.2 TECH[employer]ICAL SALES [employer]ULTANT Antibody 0.4 Scl-70 Scleroderma Ab <0.2 Double Strand DNA Ab <1 Centromere B Antibody <0.2 11/23/18 11/24/18 11/24/18 21:05 06:45 06:45 WBC 5.0 RBC 2.69 L Hgb 7.4 L Hct 26.6 L MCV 98.9 H MCH 27.5 MCHC 27.8 L RDW 15.2 H RDW Differential 51.5 H Plt Count 146 L MPV 10.1 Immature Gran % (Auto) 0.400 Neut % (Auto) 79.4 H Lymph % (Auto) 7.9 L [place] % (Auto) 12.3 H Eos % (Auto) 0.0 Baso % (Auto) 0.0 Absolute Neuts (auto) 3.9 Absolute Lymphs (auto) 0.39 L Total Counted Not Reportable Platelet Estimate ADEQUATE Polychromasia RARE Hypochromasia 3+ Anisocytosis 1+ Microcytosis RARE Tear Drop Cells 1+ Ovalocytes 2+ Acanthocytes (Spur) RARE Schistocytes 1+ Sodium 148 H Potassium 4.6 Chloride 104 Carbon Dioxide 44.0 H Anion Gap 0 L BUN 46 H Creatinine 1.12 Estim Creat Clear Calc 55.90 Est GFR (MDRD) Af Amer 83 Est GFR (MDRD) Non-Af 69 BUN/Creatinine Ratio 41.1 H Glucose 121 H Calcium 8.6 Vit D 1,25-Dihydroxy Free Testosterone Pending PTH Intact BELKIS Screen KATERINE-1 Antibody SS-A/Ro IgG Antibody SS-B/La IgG Antibody Sm (Esparza) Antibody TECH[employer]ICAL SALES CONSULTANT Antibody Scl-70 Scleroderma Ab Double Strand DNA Ab Centromere B Antibody Medical Necessity - Tobacco Use Smoking Status: Former smoker Assessment/Plan All Active Problems (Last Reviewed 11/19/18 @ 21:52 by Alpesh Caro MD) RAFAEL (acute kidney injury) (Acute) Elevated troponin (Acute) Acute on chronic respiratory failure with hypercapnia (Acute) Severe dehydration (Acute) Acute encephalopathy (Acute) COPD exacerbation (Acute) Acute on chronic respiratory failure with hypoxia and hypercapnia (Acute) Confusion (Resolved) Acute on chronic systolic (congestive) heart failure (Acute) Pneumothorax (Resolved) Pneumothorax on left (Resolved) Day #6 antibiotics Impressions 1. Acute on chronic respiratory failure with hypoxemia and hypercapnia 2. RSV B infection 3. Cystitis secondary to Klebsiella pneumoniae infection 4. Hypernatremia-resolved 5. Pancytopenia with severe anemia-chronic etiology? the leukopenia and thrombocytopenia are possibly secondary to the viral infection because these conditions have resolved. He continues to have a persistent severe anemia. Hemoglobin is stable following transfusion of 2 units of packed red blood cells. 6. BPH with history of TURPs in the past-the last TURP was in 2014 7. Chronic drop foot on the right 8. Alzheimer's dementia 9. History of cervical fusion 10. History of resection of a cerebral aneurysm 11. Acute kidney injury secondary to dehydration 12. Severe dehydration 13. Elevated troponin-possibly secondary to acute renal failure versus NSTEMI 14. continues to c/o back pain that is severe. His thinks this is the reason he has gotten weak and has been unable to walk recently. The generalized weakness is likely multifactorial....Viral infection, UTI, acute renal failure, CO2 retention......laying in bed for several days.....I suspect he will need to go to SNF for strengthening prior to returning home 15. Severe cardiomyopathy with a 35% EF 16. New compression fractures at T11 and L1 17. Probable osteoporosis HGB is 7.4 today and the HR is up......may be multifactorial.....volume OL in a pt a with a CM with 35% EF, he has had frequent lab Lasix 40 mg IV now repeat an HH at 1999 BNP now recheck lab in the AM Continue Tylenol and Oxycodone for back pain IS and acapella Code Visit Inpatient E&M: 67185 Subs Hosp L3
[2018-11-24 15:08] LABS: Immunofixation Urine Comment: (.)
[2018-11-24 15:25] LABS: Magnesium 2.4 mg/dL (1.6-2.6); Phosphorus 1.6 mg/dL (2.5-4.9)
[2018-11-24] MEDS: Furosemide 40 MG/4 ML Vial IV (15:33)
[2018-11-24] MEDS: 0.9% NaCl Peripheral Flush Adult/Peds IV (15:33)
[2018-11-24 15:39] LABS: BNP,B-Type NATRIURETIC PEPTIDE 777.6 pg/mL (0-100)
[2018-11-24] MEDS: Calcium Carbonate 500 MG Tablet PO (16:43)
[2018-11-24 18:41] LABS: Allen Test POS; Base Excess 17 mmol/L (-2 to +2); Bicarbonate 43.1 mmol/L (22-26); Blood Gas Specimen Type ART; O2 Delivery Device Nasal Can; PO2 136 mmHG (75-100); SITE R Radial; SO2 99 % (95-99); Time Given 1820; Total Carbon Dioxide 46 mmol/L; pCO2 88.3 mmHg (35-45)
--- NOTE | 2018-11-24 19:32 | CPS ---
pt switched to AVAPS per verbal order from Dr. Quintanilla.
[2018-11-24 20:13] LABS: Hematocrit 27.6 % (40-54); Hemoglobin 7.7 g/dl (13.0-16.5)
[2018-11-24] MEDS: proMETHazine 25 MG/ML Syringe 12.5 MG IV (20:55)
[2018-11-24] MEDS: Ceftriaxone 1 GM/50 ML BAG IV (21:27)
[2018-11-24] MEDS: Digoxin 250 MCG/ML Ampul IV (21:28)
[2018-11-24] MEDS: AcetaZOLAMIDE 500 MG/10 ML Vial 250 MG IV (21:31)
[2018-11-24] MEDS: Donepezil HCl 5 MG Tablet PO (21:33)
[2018-11-25] VITALS (17 sets, daily range): BP systolic 110–121; BP diastolic 71–89; PULSE 77–155; RESP 12–24; TEMP 36.6–36.8; O2SAT 94–100
[2018-11-25] MEDS: 0.9% NaCl Peripheral Flush Adult/Peds IV ×2 (02:48→22:08)
[2018-11-25] MEDS: Ipratropium/Albuterol Sulfate 3 ML AMPUL.NEB INHALATION ×4 (02:56→19:15)
[2018-11-25 03:01] LABS: Bedside Glucose 87 mg/dL (70-110)
[2018-11-25] MEDS: oxyCODONE 5 MG Tablet PO ×3 (06:50→22:06)
[2018-11-25 06:51] LABS: Hematocrit 27.1 % (40-54); Hemoglobin 7.7 g/dl (13.0-16.5); Mean Corp Hgb Conc 28.4 g/gl (32-36); Mean Corpuscular Hgb 27.7 pg (27.0-32.0); Mean Corpuscular Volume 97.5 fL (80-94); Mean Platelet Vol. 9.7 fl (6.2-12.0); Platelet Count 148 K/mm3 (150-450); RBC Distribution Width CV 15.1 % (11.6-14.6); RBC Distribution Width SD 49.6 fl (35.1-43.9); Red Blood Count 2.78 M/mm3 (4.6-6.2); White Blood Count 5.2 K/mm3 (4.4-11.0)
[2018-11-25] MEDS: Acetaminophen 500 MG Tablet 1000 MG PO ×3 (06:53→22:07)
[2018-11-25 06:54] LABS: Scan Indicated on CBC? Y/N NO
--- NOTE | 2018-11-25 06:57 | NURSING ---
contacted pharmacy about actonel; pharmacy stated this med will be delivered today but is currently not available.
[2018-11-25 06:58] LABS: BUN 41 mg/dL (7-18); Creatinine, Serum 1.12 mg/dL (0.70-1.30); Glucose 84 mg/dL (74-106)
[2018-11-25 06:59] LABS: Anion Gap 4 (5-15); BUN/Creat Ratio 36.6 RATIO (10-20); Calcium,Total 8.8 mg/dL (8.5-10.1); Chloride 104 mmol/L (98-107); EST Glomerular Filtration Rate 69 mL/min (>60); Est Glom Filt Rate - Afr Amer 83 mL/min (>60); Magnesium 2.5 mg/dL (1.6-2.6); Phosphorus 1.6 mg/dL (2.5-4.9); Potassium 4.7 mmol/L (3.5-5.1); Sodium Level 148 mmol/L (136-145)
[2018-11-25] MEDS: Spironolactone 25 MG Tablet 12.5 MG PO (09:24)
[2018-11-25] MEDS: Pantoprazole Sodium 40 MG Tablet PO (09:24)
[2018-11-25] MEDS: Calcium Carbonate 500 MG Tablet PO (09:24)
[2018-11-25] MEDS: predniSONE 20 MG Tablet 40 MG PO (09:24)
[2018-11-25] MEDS: Isosorbide Mononitrate 30 MG Tablet PO (09:24)
[2018-11-25] MEDS: APIXABAN 2.5 MG TABLET PO ×2 (09:24→22:07)
[2018-11-25] MEDS: Memantine Hydrochloride 10 MG Tablet PO ×2 (09:24→22:06)
[2018-11-25] MEDS: Finasteride 5 MG Tablet PO (09:24)
[2018-11-25] MEDS: Alendronate Sodium 70 MG Tablet PO (13:36)
--- NOTE | 2018-11-25 14:00 | PN_ITS ---
Patient Problems: Active and Suspected Problems (Last Reviewed 11/19/18 @ 21:52 by Alpesh Caro MD) Acute on chronic respiratory failure with hypercapnia (Acute) Severe dehydration (Acute) Acute encephalopathy (Acute) Subjective: The patient was seen and examined at the bedside this morning. Events from the last 24 hours have been reviewed. The patient is currently afebrile, hemodynamically stable and maintaining appropriate oxygen saturations on 3 L/min via nasal cannula. Respiratory status is stable. The patient is utilizing nocturnal BiPAP therapy. Objective: The patient's most recent lab work, culture data and imaging studies have all been personally reviewed. Surface echocardiogram from February 2017 revealed a moderately dilated LV with severe global LV systolic dysfunction and an ejection fraction of 20%. There was also evidence of mild global RV systolic dysfunction with a right ventricular systolic pressure estimated to be 60 mmHg. Polysomnogram completed February 2017 revealed evidence of severe obstructive sleep apnea for which it was recommended that the patient be placed on bilevel therapy with a pressure support of 22/16 with a 1 L/min supplemental oxygen bleed in. Stool for occult blood was negative. Blood cultures have shown no growth to date. Urine culture revealed the presence of Klebsiella pneumonia. Respiratory viral panel was positive for RSV. - Physical Exam General: Alert, Cooperative, No apparent distress HEENT: Atraumatic, PERRLA, Normocephalic Oral: No Gingival or Mucosal Lesions/ Ulcerations Neck: Supple, No Nodes, Trachea Midline Lungs: No rhonchi, No wheeze, Diminished, Rales Cardiovascular: Normal S1, Normal S2, No murmurs, Irregular Rate, Tachycardic Abdomen: Bowel Sounds Present, Soft, Non Tender Extremities: No clubbing, No cyanosis, No edema Skin: No breakdown Musculoskeletal: No Tenderness to Palpation of Joints or Extremities Lymphatic: No Cervical, Supraclavicular, or Inguinal Adenopathy Neurological: Neuro grossly intact Psych/Mental Status: Normal Affect, Appropriate Vital Signs Temp Pulse Resp BP Pulse Ox 36.6 C 82 20 H 121/89 H 96 11/25/18 06:59 11/25/18 10:54 11/25/18 10:54 11/25/18 06:59 11/25/18 07:27 Oxygen Flow Rate (L/min) 3 Oxygen Delivery Method Nasal Cannula Weight: 139 lb 5.314 oz Body Mass Index (BMI) 19.1 Intake and Output for Last 24 Hours 11/23/18 11/24/18 11/25/18 23:59 23:59 23:59 Intake Total 1670 / 1670 1125 / 1125 70 / 70 Output Total 1050 / 1050 200 / 200 Balance 620 / 620 1125 / 1125 -130 / -130 Microbiology Past 72 Hours 11/19/18 18:55 Blood Culture - Final Blood Culture (Wb) - Anticubital Left No growth in 5 days. 11/19/18 18:45 Blood Culture - Final Blood Culture (Wb) - Anticubital Right No growth in 5 days. Laboratory Tests Past 24 Hrs 11/21/18 11/24/18 11/24/18 09:40 06:45 06:45 WBC RBC Hgb Hct MCV MCH MCHC RDW RDW Differential Plt Count MPV Specimen Type Sample Site pH Bicarbonate Actual POC Total CO2 Base Excess O2 Saturation ABG pCO2 ABG pO2 Cristian Test O2 Delivery Device Liter Flow Blood Gas Notified Whom Blood Gas Notified Time Sodium Potassium Chloride Carbon Dioxide Anion Gap BUN Creatinine Estim Creat Clear Calc Est GFR (MDRD) Af Amer Est GFR (MDRD) Non-Af BUN/Creatinine Ratio Glucose Calcium Phosphorus 1.6 L Magnesium 2.4 B-Natriuretic Peptide 777.6 H Urine Immunofixation Comment: Blood Type Antibody Screen 11/24/18 11/24/18 11/24/18 15:35 18:32 19:50 WBC RBC Hgb 7.7 L Hct 27.6 L MCV MCH MCHC RDW RDW Differential Plt Count MPV Specimen Type ART Sample Site R Radial pH 7.30 L Bicarbonate Actual 43.1 H POC Total CO2 46 Base Excess 17 H O2 Saturation 99 ABG pCO2 88.3 H* ABG pO2 136 H Cristian Test POS O2 Delivery Device Nasal Can Liter Flow 3.0 Blood Gas Notified Whom [facility] Blood Gas Notified Time 1820 Sodium Potassium Chloride Carbon Dioxide Anion Gap BUN Creatinine Estim Creat Clear Calc Est GFR (MDRD) Af Amer Est GFR (MDRD) Non-Af BUN/Creatinine Ratio Glucose Calcium Phosphorus Magnesium B-Natriuretic Peptide Urine Immunofixation Blood Type O POSITIVE Antibody Screen NEGATIVE 11/25/18 11/25/18 06:30 06:30 WBC 5.2 RBC 2.78 L Hgb 7.7 L Hct 27.1 L MCV 97.5 H MCH 27.7 MCHC 28.4 L RDW 15.1 H RDW Differential 49.6 H Plt Count 148 L MPV 9.7 Specimen Type Sample Site pH Bicarbonate Actual POC Total CO2 Base Excess O2 Saturation ABG pCO2 ABG pO2 Cristian Test O2 Delivery Device Liter Flow Blood Gas Notified Whom Blood Gas Notified Time Sodium 148 H Potassium 4.7 Chloride 104 Carbon Dioxide 40.0 H Anion Gap 4 L BUN 41 H Creatinine 1.12 Estim Creat Clear Calc 55.90 Est GFR (MDRD) Af Amer 83 Est GFR (MDRD) Non-Af 69 BUN/Creatinine Ratio 36.6 H Glucose 84 Calcium 8.8 Phosphorus 1.6 L Magnesium 2.5 B-Natriuretic Peptide Urine Immunofixation Blood Type Antibody Screen POC Glucose 11/25/18 02:41 POC Glucose 87 Clinical Impression(s) from Imaging Studies Chest X-Ray 11/19/18 18:35 IMPRESSION: Stable hyperexpansion compatible with COPD. No new or acute pathology. Electronically Signed: Quincy Abarca MD at 20:22 EST , Service support , Lumbar Spine X-Ray 11/20/18 06:25 IMPRESSION: Mild acute superior endplate fracture at L2. Electronically Signed: Bay Johansen MD at 14:05 EST Tel , Service support , Lumbar Spine CT 11/23/18 05:55 IMPRESSION: Multilevel degenerative changes, as described above. Status post laminectomies at the L4-5 and L5-S1 levels. Status post kyphoplasty at the L2 level. Compression fractures of the T11 and L1 1 vertebral bodies were also present on the November 20 exam, but were not present on the October 10 exam. Electronically Signed: Jose Martin Hamilton MD at 7:49 EST , Service support , Chest X-Ray 11/23/18 13:39 IMPRESSION: 1. Bilateral upper lobe infiltrates stable in the interval. 2. Left costophrenic angle blunting consistent with small effusion or pleural reaction, also stable in the interval. 3. A bipolar left-sided pacemaker is present. Electronically Signed: Desmond Ty MD at 17:22 EST , Service support , Medical Necessity - Tobacco Use Smoking Status: Former smoker Assessment/Plan All Active Problems (Last Reviewed 11/19/18 @ 21:52 by Alpesh Caro MD) RAFAEL (acute kidney injury) (Acute) Elevated troponin (Acute) Acute on chronic respiratory failure with hypercapnia (Acute) Severe dehydration (Acute) Acute encephalopathy (Acute) COPD exacerbation (Acute) Acute on chronic respiratory failure with hypoxia and hypercapnia (Acute) Confusion (Resolved) Acute on chronic systolic (congestive) heart failure (Acute) Pneumothorax (Resolved) Pneumothorax on left (Resolved) RECOMMENDATIONS: 1. Continue antibiotics to complete treatment course for cystitis. 2. Continue Eliquis 3. Wean supplemental oxygen as tolerated 4. Continue scheduled bronchodilators and steroids. Plan for prolonged steroid taper at discharge. 5. Please ensure that the patient has a follow-up visit in the pulmonary medicine clinic within 2 weeks of his discharge from the hospital. IMPRESSIONS: 1. Acute on chronic combined respiratory failure/baseline stage IV COPD with ex acerbation secondary to RSV infection Continue current supportive measures with supplemental oxygen, bronchodilators and steroids. Continue to wean supplemental oxygen as tolerated. Encourage aggressive incentive spirometer use and mobilize patient as tolerated. 2. Klebsiella cystitis Continue antibiotics as ordered. 3. Obstructive sleep apnea Continue nocturnal BiPAP therapy per home regimen. 4. Normocytic anemia The patient has already been transfused and appears to have normocytic anemia. Stool for occult blood was negative. Continue to monitor blood counts and transfuse to maintain a hemoglobin greater than 7 g/dL. 5. Chronic systolic heart failure Continue home cardiac medications including diuretics. 6. Chronic atrial fibrillation/diabetes/metabolic encephalopathy/acute kidney injury Complicates care, management, recovery and prognosis. Tentative plans for discharge to [facility]. This note was generated with [employer] software. It may contain incorrect words, spelling, and punctuation that were not noted in checking the note before signing. Given stability in the patient's respiratory status, will sign off. Please call with any additional questions. Code Visit Inpatient E&M: 31930 Subs Hosp L2
--- NOTE | 2018-11-25 15:20 | PCM.PROGNOTE ---
Patient Problems: Active and Suspected Problems (Last Reviewed 11/19/18 @ 21:52 by Alpesh Caro MD) Acute on chronic respiratory failure with hypercapnia (Acute) Severe dehydration (Acute) Acute encephalopathy (Acute) Subjective: Day #7 antibiotics All events of the past 24 hours of been reviewed. Continues to be afebrile. Heart rate is still Increased and has ranged from 82-116 over the past 6 hours. He is breathing easier today and his pulse ox is 100% on a 3 L nasal cannula with a respiratory rate of 16. His pulse ox today is 100% on 3 L and he is a CO2 retainer so will wean the oxygen and keep the O2 sat between 89-93%. Intake and output are not accurate because the patient is incontinent. Hemoglobin is stable at 7.7. White blood cell count is within normal limits. Sodium is 148 and the serum bicarb is 40, down from 44 on 11/24/2018. Phosphorus is low at 1.6. BUN is 41 with a creatinine of 1.12 which is stable following Lasix and Diamox yesterday. He tells me his breathing is better today. He is sitting in a chair. He is more alert today. Objective: GENERAL: more alert today than last evening, oriented to person and place, Cooperative, NAD, sitting in a chair ORAL: moist mucosa, no mucosal lesions NECK: + JVD, supple, trachea midline LUNGS: diminished, symmetric chest expansion, no wheezing today, rales 1/[address] up the posterior lung vargas, still with pursed lip breathing. No conversational dyspnea today and minimal accessory muscle use today HEART: irreg, Normal S1 and S2, no rub, no gallop, AF with PVC's and 1 couplet on telemetry...not always easy to pick out the T waves, tachycardic ABDOMEN: soft, NT, ND, BS present, no guarding with palpation EXTREMITIES: no edema, no cyanosis, no calf tenderness SKIN: No rashes, no breakdown NEUROLOGIC: no focal neurologic deficits PSYCH: appropriate, normal affect, pleasant - Physical Exam Vital Signs Temp Pulse Resp BP Pulse Ox 98.2 F 112 H 16 110/73 100 11/25/18 09:00 11/25/18 15:00 11/25/18 15:00 11/25/18 09:00 11/25/18 15:00 Oxygen Flow Rate (L/min) 3 Oxygen Delivery Method Nasal Cannula Weight: 139 lb 5.314 oz Body Mass Index (BMI) 19.1 Intake and Output for Last 24 Hours 11/23/18 11/24/18 11/25/18 23:59 23:59 23:59 Intake Total 1670 / 1670 1125 / 1125 370 / 370 Output Total 1050 / 1050 650 / 650 Balance 620 / 620 1125 / 1125 -280 / -280 Microbiology Past 72 Hours 11/19/18 18:55 Blood Culture - Final Blood Culture (Wb) - Anticubital Left No growth in 5 days. 11/19/18 18:45 Blood Culture - Final Blood Culture (Wb) - Anticubital Right No growth in 5 days. Laboratory Tests Past 24 Hrs 11/24/18 11/24/18 11/24/18 06:45 06:45 15:35 WBC RBC Hgb Hct MCV MCH MCHC RDW RDW Differential Plt Count MPV Specimen Type Sample Site pH Bicarbonate Actual POC Total CO2 Base Excess O2 Saturation ABG pCO2 ABG pO2 Cristian Test O2 Delivery Device Liter Flow Blood Gas Notified Whom Blood Gas Notified Time Sodium Potassium Chloride Carbon Dioxide Anion Gap BUN Creatinine Estim Creat Clear Calc Est GFR (MDRD) Af Amer Est GFR (MDRD) Non-Af BUN/Creatinine Ratio Glucose Calcium Phosphorus 1.6 L Magnesium 2.4 B-Natriuretic Peptide 777.6 H Blood Type O POSITIVE Antibody Screen NEGATIVE 11/24/18 11/24/18 11/25/18 18:32 19:50 06:30 WBC 5.2 RBC 2.78 L Hgb 7.7 L 7.7 L Hct 27.6 L 27.1 L MCV 97.5 H MCH 27.7 MCHC 28.4 L RDW 15.1 H RDW Differential 49.6 H Plt Count 148 L MPV 9.7 Specimen Type ART Sample Site R Radial pH 7.30 L Bicarbonate Actual 43.1 H POC Total CO2 46 Base Excess 17 H O2 Saturation 99 ABG pCO2 88.3 H* ABG pO2 136 H Cristian Test POS O2 Delivery Device Nasal Can Liter Flow 3.0 Blood Gas Notified Whom [facility] Blood Gas Notified Time 1820 Sodium Potassium Chloride Carbon Dioxide Anion Gap BUN Creatinine Estim Creat Clear Calc Est GFR (MDRD) Af Amer Est GFR (MDRD) Non-Af BUN/Creatinine Ratio Glucose Calcium Phosphorus Magnesium B-Natriuretic Peptide Blood Type Antibody Screen 11/25/18 06:30 WBC RBC Hgb Hct MCV MCH MCHC RDW RDW Differential Plt Count MPV Specimen Type Sample Site pH Bicarbonate Actual POC Total CO2 Base Excess O2 Saturation ABG pCO2 ABG pO2 Cristian Test O2 Delivery Device Liter Flow Blood Gas Notified Whom Blood Gas Notified Time Sodium 148 H Potassium 4.7 Chloride 104 Carbon Dioxide 40.0 H Anion Gap 4 L BUN 41 H Creatinine 1.12 Estim Creat Clear Calc 55.90 Est GFR (MDRD) Af Amer 83 Est GFR (MDRD) Non-Af 69 BUN/Creatinine Ratio 36.6 H Glucose 84 Calcium 8.8 Phosphorus 1.6 L Magnesium 2.5 B-Natriuretic Peptide Blood Type Antibody Screen POC Glucose 11/25/18 02:41 POC Glucose 87 Medical Necessity - Tobacco Use Smoking Status: Former smoker Assessment/Plan All Active Problems (Last Reviewed 11/19/18 @ 21:52 by Alpesh Caro MD) RAFAEL (acute kidney injury) (Acute) Elevated troponin (Acute) Acute on chronic respiratory failure with hypercapnia (Acute) Severe dehydration (Acute) Acute encephalopathy (Acute) COPD exacerbation (Acute) Acute on chronic respiratory failure with hypoxia and hypercapnia (Acute) Confusion (Resolved) Acute on chronic systolic (congestive) heart failure (Acute) Pneumothorax (Resolved) Pneumothorax on left (Resolved) Day #7 antibiotics Impressions 1. Acute on chronic respiratory failure with hypoxemia and hypercapnia 2. RSV B infection 3. Cystitis secondary to Klebsiella pneumoniae infection 4. Hypernatremia 5. Pancytopenia with severe anemia-chronic etiology? the leukopenia and thrombocytopenia are possibly secondary to the viral infection because these conditions have resolved. He continues to have a persistent severe anemia. Hemoglobin is stable following transfusion of 2 units of packed red blood cells. Suspect he may have MDS 6. BPH with history of TURPs in the past-the last TURP was in 2014 7. Chronic drop foot on the right 8. Alzheimer's dementia 9. History of cervical fusion 10. History of resection of a cerebral aneurysm 11. Acute kidney injury on CRF secondary to dehydration 12. Severe dehydration - resolved 13. Elevated troponin-possibly secondary to acute renal failure versus NSTEMI 14. severe back pain due to new compression fractures....end plates only..... no need for intervention at this time. Pain is better controlled. Testosterone and vitamin D levels are pending. PTH is high and this may be a primary hyperparathyroidism. Will check a 24-hour urine for calcium. Likely will need to follow-up with endocrinology as an outpatient. 15. Severe cardiomyopathy with a 35% EF 16. New compression fractures at T11 and L1 17. Probable osteoporosis - needs a DEXA. Treatment has been started with Fosamax 18. acute systolic CHF wean the oxygen to keep the O2 sat between 89 and 93% and no higher Bumex 1 mg twice daily Insert Merida catheter for accurate intake and outputs and also for a 24-hour urine calcium Follow-up with endocrinology as an outpatient regarding the increased PTH Repeat PA and lateral chest x-ray in the a.m. Discontinue Rocephin and start Keflex 500 mg 3 times daily recheck lab in the AM Code Visit Inpatient E&M: 15866 Subs Hosp L3
--- NOTE | 2018-11-25 15:47 | CASEMGMT ---
Patient is not ready for d/c today, but possibly over the weekend. Green sheet on chart. SW left message for Irene at [facility]. Plan; WVM under skilled level of care. Jessica GARCIA MSW
[2018-11-25] MEDS: Bumetanide 1 MG/4 ML Vial IV ×2 (16:20→22:08)
[2018-11-25] MEDS: Lidocaine Jelly 2% 20 ML Syringe (URO-JET) 20 APPLIC TOPICAL (16:23)
[2018-11-25 16:50] LABS: Bacteria 0 SEEN /hpf (None Seen); Mucous, Urine 0 SEEN /hpf (<or=2+); Red Blood Cells-Urine 0 SEEN /hpf (0-5); White Blood Cells 0 SEEN /hpf (0-5)
[2018-11-25 16:54] LABS: Color, Urine Yellow (Yellow); Glucose, Dipstick 50 mg/dl (Normal); Ketone-Dipstick Negative (Negative); Leukocyte Esterase-Dipstick Negative /ul (Negative); Nitrite-Dipstick Negative (Negative); Occult Blood-Urine Negative /ul (Negative); Protein-Dipstick 15 mg/dl (Negative); Urine Bilirubin Dipstick Negative (Negative); Urine Clarity Clear (Clear); Urine Urobilinogen Normal (Normal)
[2018-11-25 17:07] LABS: Squamous Epithelial Cells - UA 0-5 SEEN /hpf (0-5)
[2018-11-25] MEDS: Carvedilol 3.125 MG TABLET PO (22:07)
[2018-11-25] MEDS: Donepezil HCl 5 MG Tablet PO (22:07)
[2018-11-25] MEDS: Ceftriaxone 1 GM/50 ML BAG IV (22:09)
[2018-11-26] VITALS (26 sets, daily range): BP systolic 94–125; BP diastolic 67–110; PULSE 86–148; RESP 12–32; TEMP 36.3–36.9; O2SAT 97–100
[2018-11-26] MEDS: Carvedilol 3.125 MG TABLET PO (00:02)
[2018-11-26] MEDS: oxyCODONE 5 MG Tablet PO ×3 (05:50→21:35)
[2018-11-26] MEDS: Acetaminophen 500 MG Tablet 1000 MG PO ×3 (05:50→21:36)
[2018-11-26] MEDS: Ipratropium/Albuterol Sulfate 3 ML AMPUL.NEB INHALATION ×4 (07:40→19:47)
[2018-11-26 07:51] LABS: Hematocrit 27.6 % (40-54); Hemoglobin 7.9 g/dl (13.0-16.5)
[2018-11-26 08:07] LABS: Albumin, Serum 2.4 g/dL (3.2-5.0); Anion Gap 3 (5-15); BUN 39 mg/dL (7-18); Calcium,Total 8.3 mg/dL (8.5-10.1); Chloride 104 mmol/L (98-107); EST Glomerular Filtration Rate 78 mL/min (>60); Est Glom Filt Rate - Afr Amer 95 mL/min (>60); Estimated Creatinine Clearance 64.85 ml/min; Glucose 94 mg/dL (74-106); Phosphorus 3.2 mg/dL (2.5-4.9); Potassium 4.4 mmol/L (3.5-5.1); Sodium Level 148 mmol/L (136-145)
--- NOTE | 2018-11-26 09:03 | RAD_ITS ---
STUDY: X-RAY CHEST REASON FOR EXAM: Male, 68 years old. Congestive heart failure. TECHNIQUE: PA and lateral views of the chest. COMPARISON: 11/23/2018. FINDINGS: There again is a dual-chamber left sided pacemaker in stable position. Patchy infiltrate in the right upper lobe is again seen slightly improved since the previous examination. There is continued slightly prominent markings in the left upper lobe/infiltrate. There is small left pleural effusion. There are mild atelectatic changes in the left lung base. The heart is within normal limits in size. Normal mediastinum and yee. Normal visualized pulmonary arteries. There is atherosclerotic tortuosity of the aortic arch and descending thoracic aorta. There is decrease height of several thoracic vertebrae. There are degenerative changes in the right shoulder. There is no demonstrated abnormality of the visualized soft tissue structures of the upper abdomen. RAD/Chest PA and Lateral IMPRESSION: Mild bilateral upper lobes infiltrates slightly improved since previous exam. Electronically Signed: Felice Cross MD at 12:58 EST Tel , Service support ,
[2018-11-26] MEDS: Carvedilol 6.25 MG Tablet PO ×2 (10:36→21:36)
[2018-11-26] MEDS: Bumetanide 1 MG/4 ML Vial IV (10:37)
[2018-11-26] MEDS: Spironolactone 25 MG Tablet 12.5 MG PO (10:38)
[2018-11-26] MEDS: APIXABAN 2.5 MG TABLET PO ×2 (10:38→21:36)
[2018-11-26] MEDS: Pantoprazole Sodium 40 MG Tablet PO (10:38)
[2018-11-26] MEDS: Memantine Hydrochloride 10 MG Tablet PO ×2 (10:38→21:36)
[2018-11-26] MEDS: Isosorbide Mononitrate 30 MG Tablet PO (10:38)
[2018-11-26] MEDS: Finasteride 5 MG Tablet PO (10:38)
[2018-11-26] MEDS: predniSONE 10 MG Tablet 30 MG PO (10:40)
[2018-11-26] MEDS: 0.9% NaCl Peripheral Flush Adult/Peds IV (10:47)
--- NOTE | 2018-11-26 11:34 | EKG12_ITS ---
Test Reason : ARRYTHMIA Blood Pressure : / mmHG Vent. Rate : 132 BPM Atrial Rate : 133 BPM P-R Int : 122 ms QRS Dur : 108 ms QT Int : 304 ms P-R-T Axes : 051 -72 125 degrees QTc Int : 450 ms Sinus tachycardia with Premature supraventricular complexes and with occasional Premature ventricular complexes Left axis deviation ST & T wave abnormality, consider lateral ischemia Abnormal ECG Confirmed by DUNCAN NGUYEN, KAHLIL ([id number]), waiter/waitress MALIA INGRAM ([id number]) on 12/01/2018 10:53:53 AM Referred By: Alpesh Caro Confirmed By:KAHLIL SONG MD
[2018-11-26 12:26] LABS: Testosterone Free 6.4 pg/mL (6.6-18.1)
--- NOTE | 2018-11-26 16:17 | PCM.PROGNOTE ---
Patient Problems: Active and Suspected Problems (Last Reviewed 11/19/18 @ 21:52 by Alpesh Caro MD) Acute on chronic respiratory failure with hypercapnia (Acute) Severe dehydration (Acute) Acute encephalopathy (Acute) Subjective: All events of the past 24 hours of been reviewed. Afebrile. Heart rate today is elevated in the 120s-140s. He has multiple family members in his room and he appears to be very tired and wants to go to sleep. I think he is anxious. Telemetry-atrial fibrillation with rapid ventricular response Blood pressure is 103/80 currently. Respiratory rate ranges from 20-32 depending on his level of agitation. His pulse ox today is 97-100% on 2 L. Fluid balance was -622 yesterday and -803 overnight. Weights are unreliable. Laboratory: Hemoglobin is stable at 7.9. Sodium is stable at 148 and the CO2 is 41 today. BUN is 39 and the creatinine is down to 1.0 with diuresis. UA yesterday showed 0 WBCs and 0 bacteria. 24-hour quantitative urine calcium is pending. Chest x-ray is much improved with only a small left pleural effusion today and decreased pulmonary vascular congestion. Denies chest pain. He does complain of shortness of breath but it is improved. He is not coughing. No diarrhea. Objective: GENERAL: Looks fatigued today-multiple family members have been in his room for several hours, he admits to feeling tired and wanting to go to sleep ORAL: moist mucosa, no mucosal lesions NECK: + JVD, supple, trachea midline LUNGS: diminished, symmetric chest expansion, no wheezing today, no rales today, still with pursed lip breathing but minimal. No conversational dyspnea today and no accessory muscle use HEART: irreg, Normal S1 and S2, no rub, no gallop, AF with RVR on telemetry...not always easy to pick out the T waves, tachycardic ABDOMEN: soft, NT, mildly distended and tympanic, BS present, no guarding with palpation EXTREMITIES: no edema, no cyanosis, no calf tenderness SKIN: No rashes, no breakdown. He has petechiae on the arms from the BP cuff but this is unchanged and he has no rash any where else on his body NEUROLOGIC: no focal neurologic deficits PSYCH: appropriate, normal affect, pleasant - Physical Exam Vital Signs Temp Pulse Resp BP Pulse Ox 98.2 F 148 H 20 H 109/82 H 100 11/26/18 15:39 11/26/18 16:03 11/26/18 15:39 11/26/18 15:39 11/26/18 15:39 Oxygen Flow Rate (L/min) 2 Oxygen Delivery Method Nasal Cannula Weight: 147 lb 0.773 oz Body Mass Index (BMI) 19.1 Intake and Output for Last 24 Hours 11/24/18 11/25/18 11/26/18 23:59 23:59 23:59 Intake Total 1125 / 1125 828 / 828 872 / 872 Output Total 1450 / 1450 1675 / 1675 Balance 1125 / 1125 -622 / -622 -803 / -803 Microbiology Past 72 Hours 11/19/18 18:55 Blood Culture - Final Blood Culture (Wb) - Anticubital Left No growth in 5 days. 11/19/18 18:45 Blood Culture - Final Blood Culture (Wb) - Anticubital Right No growth in 5 days. Laboratory Tests Past 24 Hrs 11/23/18 11/25/18 11/26/18 21:05 16:30 07:44 Hgb 7.9 L Hct 27.6 L Sodium Potassium Chloride Carbon Dioxide Anion Gap BUN Creatinine Estim Creat Clear Calc Est GFR (MDRD) Af Amer Est GFR (MDRD) Non-Af BUN/Creatinine Ratio Glucose Calcium Phosphorus Albumin Free Testosterone 6.4 L Urine Color Yellow Urine Clarity Clear Urine pH 8.0 Ur Specific [place] 1.010 Urine Protein 15 H Urine Glucose (UA) 50 H Urine Ketones Negative Urine Occult Blood Negative Urine Nitrite Negative Urine Bilirubin Negative Urine Urobilinogen Normal Ur Leukocyte Esterase Negative Urine RBC 0 SEEN Urine WBC 0 SEEN Ur Squamous Epith Cells 0-5 SEEN Urine Bacteria 0 SEEN Urine Mucus 0 SEEN 11/26/18 07:44 Hgb Hct Sodium 148 H Potassium 4.4 Chloride 104 Carbon Dioxide 41.0 H Anion Gap 3 L BUN 39 H Creatinine 1.00 Estim Creat Clear Calc 64.85 Est GFR (MDRD) Af Amer 95 Est GFR (MDRD) Non-Af 78 BUN/Creatinine Ratio 39.0 H Glucose 94 Calcium 8.3 L Phosphorus 3.2 Albumin 2.4 L Free Testosterone Urine Color Urine Clarity Urine pH Ur Specific [place] Urine Protein Urine Glucose (UA) Urine Ketones Urine Occult Blood Urine Nitrite Urine Bilirubin Urine Urobilinogen Ur Leukocyte Esterase Urine RBC Urine WBC Ur Squamous Epith Cells Urine Bacteria Urine Mucus Medical Necessity - Tobacco Use Smoking Status: Former smoker Assessment/Plan All Active Problems (Last Reviewed 11/19/18 @ 21:52 by Alpesh Caro MD) RAFAEL (acute kidney injury) (Acute) Elevated troponin (Acute) Acute on chronic respiratory failure with hypercapnia (Acute) Severe dehydration (Acute) Acute encephalopathy (Acute) COPD exacerbation (Acute) Acute on chronic respiratory failure with hypoxia and hypercapnia (Acute) Confusion (Resolved) Acute on chronic systolic (congestive) heart failure (Acute) Pneumothorax (Resolved) Pneumothorax on left (Resolved) Day #8 antibiotics Impressions 1. Acute on chronic respiratory failure with hypoxemia and hypercapnia 2. RSV B infection 3. Cystitis secondary to Klebsiella pneumoniae infection 4. Hypernatremia 5. Pancytopenia with severe anemia-chronic etiology? the leukopenia and thrombocytopenia are possibly secondary to the viral infection because these conditions have resolved. He continues to have a persistent severe anemia. Hemoglobin is stable following transfusion of 2 units of packed red blood cells. Suspect he may have MDS 6. BPH with history of TURPs in the past-the last TURP was in 2014 7. Chronic drop foot on the right 8. Alzheimer's dementia 9. History of cervical fusion 10. History of resection of a cerebral aneurysm 11. Acute kidney injury on CRF secondary to dehydration 12. Severe dehydration - resolved 13. Elevated troponin-possibly secondary to acute renal failure versus NSTEMI 14. severe back pain due to new compression fractures....end plates only..... no need for intervention at this time. Pain is better controlled. Testosterone and vitamin D levels are pending. PTH is high and this may be a primary hyperparathyroidism vs [facility]. 24-hour urine for quantitative calcium has been collected and results are pending. Will need to follow-up with endocrinology as an outpatient. 15. Severe cardiomyopathy with a 35% EF 16. New compression fractures at T11 and L1 17. Probable osteoporosis - needs a DEXA. Treatment has been started with Fosamax 18. acute systolic CHF - improving 19. Hypophosphatemia wean the oxygen to keep the O2 sat between 89 and 93% and no higher Bumex 1 mg twice daily Insert Merida catheter for accurate intake and outputs and also for a 24-hour urine calcium Follow-up with endocrinology as an outpatient regarding the increased PTH recheck lab in the AM Amiodarone bolus and start the 24 hour infusion BELKIS is but the dsDNA is negative The RA is 130. Await the results of vitamin D levels.... Corrected calcium today is 9.58 Renal ultrasound to look for occult nephrolithiasis Code Visit Inpatient E&M: 97051 Subs Hosp L3
[2018-11-26 19:02] LABS: (24 HR) Urine Calcium 52.4 mg/24 HR (42.0-353.0); 24HR UR TOTAL VOLUME 2620 ml; Calcium Urine pH Range 2; Urine Calcium (Random) < 2.0 (Not Estab.)
[2018-11-26] MEDS: Donepezil HCl 5 MG Tablet PO (21:36)
[2018-11-26] MEDS: Cephalexin 500 MG Capsule PO (21:36)
[2018-11-27] VITALS (24 sets, daily range): BP systolic 102–131; BP diastolic 57–91; PULSE 68–98; RESP 12–24; TEMP 36.3–37; O2SAT 84–100
[2018-11-27] MEDS: Ipratropium/Albuterol Sulfate 3 ML AMPUL.NEB INHALATION ×3 (01:50→13:52)
[2018-11-27] MEDS: oxyCODONE 5 MG Tablet PO ×2 (05:47→13:31)
[2018-11-27] MEDS: Acetaminophen 500 MG Tablet 1000 MG PO ×2 (05:48→13:32)
[2018-11-27] MEDS: Cephalexin 500 MG Capsule PO ×2 (05:48→13:32)
[2018-11-27 06:36] LABS: Erythrocyte Sedimentation Rate 38 mm/hr (0-20)
[2018-11-27 06:46] LABS: Anion Gap 3 (5-15); BUN 38 mg/dL (7-18); BUN/Creat Ratio 39.2 RATIO (10-20); CRP 5.32 mg/L (0.0-3.0); Calcium,Total 8.3 mg/dL (8.5-10.1); Chloride 101 mmol/L (98-107); Creatinine, Serum 0.97 mg/dL (0.70-1.30); EST Glomerular Filtration Rate 81 mL/min (>60); Est Glom Filt Rate - Afr Amer 98 mL/min (>60); Estimated Creatinine Clearance 68.06 ml/min; Glucose 84 mg/dL (74-106); Phosphorus 1.8 mg/dL (2.5-4.9); Potassium 4.6 mmol/L (3.5-5.1); Sodium Level 146 mmol/L (136-145)
[2018-11-27] MEDS: Isosorbide Mononitrate 30 MG Tablet PO (08:27)
[2018-11-27] MEDS: Carvedilol 6.25 MG Tablet PO (08:27)
[2018-11-27] MEDS: predniSONE 10 MG Tablet 30 MG PO (08:27)
[2018-11-27] MEDS: Spironolactone 25 MG Tablet 12.5 MG PO (08:27)
[2018-11-27] MEDS: Finasteride 5 MG Tablet PO (08:28)
[2018-11-27] MEDS: APIXABAN 2.5 MG TABLET PO (08:28)
[2018-11-27] MEDS: Pantoprazole Sodium 40 MG Tablet PO (08:28)
[2018-11-27] MEDS: Memantine Hydrochloride 10 MG Tablet PO (08:28)
[2018-11-27] MEDS: Albuterol 2.5 MG/3 ML VIAL.NEB. INHALATION (11:57)
--- NOTE | 2018-11-27 14:55 | PCM.TXEXTCAR ---
- Diet 11/21/18 13:38 Diet: Cardiac/Low Cholesterol Is pt able to select menu?: Yes Fluid restriction: 1500 cc daily - Routine Orders/Code Status Enema Type: Fleetz Enema Frequency: Daily PRN Suppository Type: Dulcolax 10mg Suppository Frequency: Daily PRN O2 Liters per Minute: 0.5-1 liter O2 Frequency: Continuous Keep PO Greater than or Equal to (%): 89 - titrate to keep the O2 sat between 89-93 and no higher than 93...he is a CO2 retainer Routine Lab Work: - - BMP, CBC, phos on 11/30/18 [facility] Left chin Wound Type: Abrasion Left hip Wound Type: scab R Hip Wound Type: scab - Therapies Weight Bearing: Full weight bearing Physical Therapy: Eval and Treat Occupational Therapy: Eval and Treat - Problem/Diagnosis (1) Acute encephalopathy Status: Acute Comment: 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 Current Visit: Yes (2) Severe dehydration Status: Acute Current Visit: Yes (3) Anemia Status: Chronic Comment: etiology unknown Current Visit: Yes (4) Acute on chronic respiratory failure with hypoxia and hypercapnia Status: Acute Current Visit: No (5) Acute on chronic systolic (congestive) heart failure Status: Acute Current Visit: No (6) COPD exacerbation Status: Acute Current Visit: No (7) Elevated troponin Status: Acute Comment: likely due to acute on chronic renal failure Current Visit: No (8) History of implantable cardioverter-defibrillator (ICD) placement Status: Chronic Current Visit: No (9) Hypersomnia Status: Chronic Current Visit: No (10) Hypertension Status: Chronic Current Visit: No (11) PETE (obstructive sleep apnea) Status: Chronic Current Visit: No (12) Paroxysmal atrial fibrillation Status: Chronic Current Visit: No (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 Current Visit: No (14) Stage 4 very severe COPD by GOLD classification Status: Chronic Current Visit: No (15) 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 Current Visit: No (16) Pleural effusion Status: Acute Comment: due to acute systolic CHF Current Visit: No (17) RSV infection Status: Acute Current Visit: Yes (18) Cystitis Status: Acute Current Visit: Yes (19) Hypernatremia Status: Acute Current Visit: Yes (20) Thrombocytopenia Status: Resolved Current Visit: Yes (21) Leukopenia Status: Resolved Current Visit: Yes (22) BPH (benign prostatic hyperplasia) Status: Chronic Current Visit: Yes (23) Alzheimer's dementia Status: Chronic Current Visit: Yes (24) Acute renal failure superimposed on chronic kidney disease Status: Acute Current Visit: Yes (25) Cardiomyopathy Status: Acute Comment: Severe with a 35% ejection fraction Current Visit: Yes (26) Hypophosphatemia Status: Acute Current Visit: Yes (27) Elevated parathyroid hormone Status: Acute Comment: PTH is 98, 24 hour urine Calcium is only 52. Current Visit: Yes (28) Elevated rheumatoid factor Status: Acute Comment: 130 Current Visit: Yes (29) Osteoporosis Status: Suspected Comment: Needs a DEXA scan Current Visit: Yes (30) Atrial fibrillation with rapid ventricular response Status: Acute Current Visit: Yes (31) Vertebral compression fracture Status: Acute Current Visit: Yes (32) History of kyphoplasty Status: Chronic Current Visit: Yes - Allergies/Procedures Done in Hospital Allergies/Adverse Reactions: Allergies aspirin Adverse Reaction (Verified 11/19/18 18:24) Upset Stomach Procedures: 2-D Echocardiogram - Type of Care/Length of Stay Estimated LOS: Convalescent Care Less Than 30 days Type of Care Needed: Skilled Rehab Potential: Good Prognosis: Good - Additional Orders/Day of Discharge H&P will serve as current which was dated: 11/19/18 Day of Discharge: 11/27/18 - Dietary and Speech Recommendations Dietitian Recommendations/Changes: Rec diet change to regular, no added salt d/t signs/symptoms of malnutrition. - Follow Up Care Primary Care Physician: Sony Allison MD [Primary Care Provider] - Please follow up with your Primary Care Physician in: Following discharge from SNF Please Follow Up With: Alpesh Guevara MD When: 3 months Please Follow Up With: Jonathon Marroquin DO When: 2 weeks Please Follow Up With: Lamar Weiss MD When: as needed for pain management
--- NOTE | 2018-11-27 15:21 | PCM.DC.SUM ---
Discharge Date and Diagnosis - Problem List Patient Problems: Active and Suspected Problems (Last Reviewed 11/19/18 @ 21:52 by Alpesh Caro MD) RSV infection (Acute) Cystitis (Acute) Hypernatremia (Acute) Acute renal failure superimposed on chronic kidney disease (Acute) Cardiomyopathy (Acute) Severe with a 35% ejection fraction Hypophosphatemia (Acute) Elevated parathyroid hormone (Acute) PTH is 98, 24 hour urine Calcium is only 52. 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 Acute exacerbation of COPD Acute on chronic systolic congestive heart failure - Secondary Discharge Diagnosis Chronic Problems (Last Reviewed 11/19/18 @ 21:52 by Alpesh Caro MD) Anemia (Chronic) etiology unknown BPH (benign prostatic hyperplasia) (Chronic) Alzheimer's dementia (Chronic) History of kyphoplasty (Chronic) PETE (obstructive sleep apnea) (Chronic) Hypersomnia (Chronic) 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 No new or acute pathology. Electronically Signed: Quincy Abarca MD at 20:22 EST , Service support , Lumbar Spine X-Ray 11/20/18 06:25 IMPRESSION: Mild acute superior endplate fracture at L2. Electronically Signed: Bay Johansen MD at 14:05 EST Tel , Service support , Lumbar Spine CT 11/23/18 05:55 IMPRESSION: Multilevel degenerative changes, as described above. Status post laminectomies at the L4-5 and L5-S1 levels. Status post kyphoplasty at the L2 level. Compression fractures of the T11 and L1 1 vertebral bodies were also present on the November 20 exam, but were not present on the October 10 exam. Electronically Signed: Jose Martin Hamilton MD at 7:49 EST , Service support , Chest X-Ray 11/23/18 13:39 IMPRESSION: 1. Bilateral upper lobe infiltrates stable in the interval. 2. Left costophrenic angle blunting consistent with small effusion or pleural reaction, also stable in the interval. 3. A bipolar left-sided pacemaker is present. Electronically Signed: Desmond Ty MD at 17:22 EST , Service support , Chest X-Ray 11/26/18 09:03 IMPRESSION: Mild bilateral upper lobes infiltrates slightly improved since previous exam. Electronically Signed: Felice Cross MD at 12:58 EST Tel , Service support , Microbiology 11/25/18 16:30 Urine Catheter - [place] Urine Culture - Final GNR lactose contour stitcher 11/19/18 18:55 Blood Culture (Wb) - Anticubital Left Blood Culture - Final No growth in 5 days. 11/19/18 18:45 Blood Culture (Wb) - Anticubital Right Blood Culture - Final No growth in 5 days. 11/21/18 08:17 Mucosa - Nasopharyngeal Respiratory Panel (PCR) - Final RSV B 11/19/18 21:03 Urine, Clean Catch Urine Culture - Final Klebsiella pneumoniae sp pneum 11/19/18 19:55 Stool Stool Occult Blood (JEANNE) - Final Laboratory Results - last 24 hr 11/26/18 11/27/18 11/27/18 16:30 06:10 06:10 ESR 38 H Sodium 146 H Potassium 4.6 Chloride 101 Carbon Dioxide 42.0 H Anion Gap 3 L BUN 38 H Creatinine 0.97 Estim Creat Clear Calc 68.06 Est GFR (MDRD) Af Amer 98 Est GFR (MDRD) Non-Af 81 BUN/Creatinine Ratio 39.2 H Glucose 84 Calcium 8.3 L Phosphorus 1.8 L C-React Prot Ext Range 5.32 H Urine pH 2 Ur Random Calcium Cancelled Urine Collection Time 24.0 Urine Total Volume 2620 Urine Calcium < 2.0 Ur Calcium [address] Jonathon Marroquin and Dr. Jet Arnett-repair welder/pulmonary medicine Dr. Alpesh Guevara-hematology/oncology Operations: None Procedures: 2-D Echocardiogram Summary of Care Provided: The pt is a 68 YO male with a PMH of stage 4 COPD, dilated CM with a 25-30% EF in 2014, CAD, chronic renal failure stage II?3, PETE, PAF, diabetes mellitus type 2, chronic anticoagulation with Eliquis, Silicosis, AICD placement, HTN , BPH with TURP's in the past with the most recent being in 2014, chronic dropped foot on the right, Alzheimer's dementia, cervical fusion and resection of a cerebral aneurysm who presented to the emergency department at [facility] on 11/10/2018 with complaints of increased confusion and increased somnolence. He additionally complained of severe back pain that started suddenly when he sat down hard in a WC. His stated that he had been unable to walk since then. He had recently had a Kyphoplasty at L2 by . Significant lab in the emergency room included a hemoglobin of 7.0, sodium of 149, serum bicarb of 44, BUN of 97 and creatinine of 2.21. Lactic acid was 1.2. Troponin was elevated at 0.408 and then trended down. UA had 5-10 white blood cells and was nitrite negative. There was 4+ bacteria. An ABG done on a 4 L nasal cannula showed a pH of 7.33, PCO2 of 89 and a PO2 of 122. Chest x-ray showed no infiltrates, pleural effusions or pulmonary vascular congestion. He was admitted to [facility] ICU on 11/19/2018 with acute metabolic encephalopathy on chronic dementia, acute on chronic respiratory failure with hypoxemia and hypercarbia, severe dehydration with hypernatremia, hypotension, acute kidney injury, cystitis and severe anemia. He was transfused and started on Steroids, aerosolized bronchodilators, ceftriaxone and IV fluids. Dr. Arnett was consulted to participate in management. Urine culture grew Klebsiella pneumoniae which was resistant to ampicillin but otherwise pansensitive. Blood cultures had no growth after 5 days. Hemoccult stool was negative. Respiratory panel grew RSV B. A plain x-ray of the back showed a new superior endplate depression at L1. He continued to complain of severe back pain and a CT scan of the lumbar spine was obtained and showed new compression fractures of the T11 and L1 vertebral bodies. There was multilevel degenerative changes and evidence of old laminectomies at L4-5 and L5-S1. He was started on Tylenol 1 GM PO q 8H and Oxy IR 5 mg every 8 hours and this adequately controlled his pain. An echocardiogram was done which showed mild to moderate global left ventricular systolic dysfunction with a 35% EF. The right ventricle was mildly dilated and the right ventricular systolic pressure was increased at 46 consistent with mild to moderate pulmonary hypertension. There was mild enlargement of both atria and no significant valvular heart disease. Dr. Guevara was consulted regarding the severe chronic anemia but, the pt had 2 units of PRBC's and this invalidated the results any blood testing done following the transfusions. He will follow up with the pt in the clinic in 3 months. Because of the multiple compression fractures PTH, vitamin D and a 24 hour urine for quantitative calcium were ordered. Vitamin D levels are still pending at the time of discharge. The calcium corrected for hypoalbuminemia is within normal limits. PTH is mildly elevated at 98.7. Testosterone is low at 6.4. The 24-hour urine for quantitative calcium had 52 mg of calcium per 24-hour period. 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 The PTH is only mildly elevated. Of interest is a low TSH with an A normal T3 and T4. He may have subclinical hyperthyroidism and this may be contributing to bone loss, AF and CM. It may be a good idea to refer him to an first aid instructor. Also of interest is and increased RA at 130. Rheumatologic disease could be contributing to the n/N anemia and he should be referred to a pigment pusher to be evaluated. Would check a CCP. Lasix was held at admission due to severe dehydration and he subsequently developed acute systolic CHF. He was started on IV diuretics. He also went into AF with RVR and the rate was difficult to control until he was started on Amiodarone on 11/26/18. On 11/27/18 he was in NSR with occasional PVC's. He was discharged to [facility] on 11/27/18 for further PT/OT prior to returning home. He will be kept on Amiodarone. He was discharged on Lasix 60 mg daily. He also will continue on Keflex for 7 more doses. I recommend that he has a DEXA in the future and if he has osteoporosis would start a bisphosphonate. He was started on Vitamin D in the hospital. GENERAL: Looks more rested today. There are no family members in his room at the time I examined him. ORAL: moist mucosa, no mucosal lesions NECK: Mild JVD, supple, trachea midline LUNGS: diminished, symmetric chest expansion, no wheezing today, no rales today, still with pursed lip breathing but minimal. No conversational dyspnea today and no accessory muscle use HEART: regular, Normal S1 and S2, no rub, no gallop, telemetry shows NSR with occasional PVC's and some paced beats. ABDOMEN: soft, NT, mildly distended and tympanic, BS present, no guarding with palpation EXTREMITIES: no edema, no cyanosis, no calf tenderness SKIN: No rashes, no breakdown. He has petechiae on the arms from the BP cuff but this is unchanged and he has no rash any where else on his body NEUROLOGIC: no focal neurologic deficits PSYCH: appropriate, normal affect, pleasant This note was generated with Burtation software. It may contain incorrect words, spelling, and punctuation that were not noted in checking the note before signing. Patient Problems: Active and Suspected Problems (Last Reviewed 11/19/18 @ 21:52 by Alpesh Caro MD) RSV infection (Acute) Cystitis (Acute) Hypernatremia (Acute) Acute renal failure superimposed on chronic kidney disease (Acute) Cardiomyopathy (Acute) Severe with a 35% ejection fraction Hypophosphatemia (Acute) Elevated parathyroid hormone (Acute) PTH is 98, 24 hour urine Calcium is only 52. 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 - Physical Exam Vital Signs Temp Pulse Resp BP Pulse Ox 97.9 F 96 18 107/64 95 11/27/18 14:09 11/27/18 15:00 11/27/18 14:09 11/27/18 14:09 11/27/18 14:09 Oxygen Flow Rate (L/min) 0.5 Oxygen Delivery Method Nasal Cannula Weight: 149 lb 11.102 oz Body Mass Index (BMI) 19.1 Intake and Output for Last 24 Hours 11/25/18 11/26/18 11/27/18 23:59 23:59 23:59 Intake Total 828 / 828 1595 / 1595 794 / 794 Output Total 1450 / 1450 1950 / 1950 600 / 600 Balance -622 / -622 -355 / -355 194 / 194 Microbiology Past 72 Hours 11/25/18 16:30 Urine Culture - Final Urine Catheter - [place] GNR lactose contour stitcher 11/19/18 18:55 Blood Culture - Final Blood Culture (Wb) - Anticubital Left No growth in 5 days. 11/19/18 18:45 Blood Culture - Final Blood Culture (Wb) - Anticubital Right No growth in 5 days. Laboratory Tests Past 24 Hrs 11/26/18 11/27/18 11/27/18 16:30 06:10 06:10 ESR 38 H Sodium 146 H Potassium 4.6 Chloride 101 Carbon Dioxide 42.0 H Anion Gap 3 L BUN 38 H Creatinine 0.97 Estim Creat Clear Calc 68.06 Est GFR (MDRD) Af Amer 98 Est GFR (MDRD) Non-Af 81 BUN/Creatinine Ratio 39.2 H Glucose 84 Calcium 8.3 L Phosphorus 1.8 L C-React Prot Ext Range 5.32 H Vitamin D 25-Hydroxy Urine pH 2 Ur Random Calcium Cancelled Urine Collection Time 24.0 Urine Total Volume 2620 Urine Calcium < 2.0 Ur Calcium 24 Hr 52.4 11/27/18 06:10 ESR Sodium Potassium Chloride Carbon Dioxide Anion Gap BUN Creatinine Estim Creat Clear Calc Est GFR (MDRD) Af Amer Est GFR (MDRD) Non-Af BUN/Creatinine Ratio Glucose Calcium Phosphorus C-React Prot Ext Range Vitamin D 25-Hydroxy Pending Urine pH Ur Random Calcium Urine Collection Time Urine Total Volume Urine Calcium Ur Calcium 24 Hr Home Medications: Medications to take at Discharge Finasteride [Proscar] 5 mg PO DAILY 09/09/15 Isosorbide Mononitrate [Imdur] 30 mg PO DAILY 06/19/16 memantine 5 mg tablet 28 mg PO QDAY 11/09/17 Cyanocobalamin [Vitamin B12] 1,000 mcg PO DAILY@0800 05/02/18 Nitroglycerin 0.4 mg SL PRN PRN 05/02/18 spironolactone 25 mg tablet 12.5 mg PO DAILY tab 09/27/18 Donepezil HCl 5 mg PO QHS 11/19/18 Acetaminophen [Tylenol] 1,000 mg PO Q8 tablet 11/27/18 Albuterol Aerosols [Ventolin Aerosols] 2.5 mg INHALATION Q2H PRN PRN vial.neb. 11/27/18 Amiodarone HCl [Pacerone] 200 mg PO UD #1 tablet 11/27/18 Apixaban [Eliquis] 2.5 mg PO BID tablet 11/27/18 Carvedilol [Coreg (Beta Virgie)] 6.25 mg PO BID tablet 11/27/18 Cephalexin [Keflex] 500 mg PO Q8 #7 capsule 11/27/18 Ergocalciferol [Vitamin D] 50,000 unit PO Q7D capsule 11/27/18 Furosemide 60 mg PO DAILY #1 tab 11/27/18 Ipratropium/Albuterol Sulfate [Duoneb] 3 ml INHALATION Q6H.RT ampul.neb 11/27/18 Losartan Potassium [Cozaar] 25 mg PO DAILY #1 tablet 11/27/18 Na Biphos/Potassium Phosphate [Neutra-Phos Packet] 1 packet PO TID #6 packet 11/27/18 Oxycodone [Oxyir] 5 mg PO Q8 7 Days #21 tab 11/27/18 Oxygen, Home [Home Oxygen] 3 lpm NASAL DAILY PRN PRN #0 11/27/18 Pantoprazole Sodium [Protonix] 40 mg PO DAILY tablet 11/27/18 Prednisone 10 mg PO QDAY #30 tab 11/27/18 Following Prescrptions Were Given to Patient: Amiodarone HCl [Pacerone] 200 mg PO UD #1 tablet Losartan Potassium [Cozaar] 25 mg PO DAILY #1 tablet Oxycodone [Oxyir] 5 mg PO Q8 7 Days #21 tab Prednisone 10 mg PO QDAY #30 tab Na Biphos/Potassium Phosphate [Neutra-Phos Packet] 1 packet PO TID #6 packet Primary Care Physician: Sony Allison MD [Primary Care Provider] - Please follow up with your Primary Care Physician in: Following discharge from SNF Please Follow Up With: Alpesh Guevara MD When: 3 months Please Follow Up With: Jonathon Marroquin DO When: 2 weeks Please Follow Up With: Lamar Weiss MD When: as needed for pain management Disposition: Detention facility Minutes spent on discharge:: 45 Patient Condition:: Stable Medical Necessity - Tobacco Use Smoking Status: Former smoker Tobacco Use: Non-smoker Meaningful Use Info Meaningful Use Diagnoses (Choose all that apply): CHF - CHF ANDREA/ARB ordered at discharge?: Yes Documented LVEF (%): 35 Code Visit Inpatient E&M: 68144 Disch Hosp
--- NOTE | 2018-11-27 15:26 | DS.PCM_ITS ---
Discharge Date and Diagnosis - Problem List Patient Problems: Active and Suspected Problems (Last Reviewed 11/19/18 @ 21:52 by Alpesh Caro MD) RSV infection (Acute) Cystitis (Acute) Hypernatremia (Acute) Acute renal failure superimposed on chronic kidney disease (Acute) Cardiomyopathy (Acute) Severe with a 35% ejection fraction Hypophosphatemia (Acute) Elevated parathyroid hormone (Acute) PTH is 98, 24 hour urine Calcium is only 52. 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 Acute exacerbation of COPD Acute on chronic systolic congestive heart failure - Secondary Discharge Diagnosis Chronic Problems (Last Reviewed 11/19/18 @ 21:52 by Alpesh Caro MD) Anemia (Chronic) etiology unknown BPH (benign prostatic hyperplasia) (Chronic) Alzheimer's dementia (Chronic) History of kyphoplasty (Chronic) PETE (obstructive sleep apnea) (Chronic) Hypersomnia (Chronic) 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 No new or acute pathology. Electronically Signed: Quincy Abarca MD at 20:22 EST , Service support , Lumbar Spine X-Ray 11/20/18 06:25 IMPRESSION: Mild acute superior endplate fracture at L2. Electronically Signed: Bay Johansen MD at 14:05 EST Tel , Service support , Lumbar Spine CT 11/23/18 05:55 IMPRESSION: Multilevel degenerative changes, as described above. Status post laminectomies at the L4-5 and L5-S1 levels. Status post kyphoplasty at the L2 level. Compression fractures of the T11 and L1 1 vertebral bodies were also present on the November 20 exam, but were not present on the October 10 exam. Electronically Signed: Jose Martin Hamilton MD at 7:49 EST , Service support , Chest X-Ray 11/23/18 13:39 IMPRESSION: 1. Bilateral upper lobe infiltrates stable in the interval. 2. Left costophrenic angle blunting consistent with small effusion or pleural reaction, also stable in the interval. 3. A bipolar left-sided pacemaker is present. Electronically Signed: Desmond Ty MD at 17:22 EST , Service support , Chest X-Ray 11/26/18 09:03 IMPRESSION: Mild bilateral upper lobes infiltrates slightly improved since previous exam. Electronically Signed: Felice Cross MD at 12:58 EST Tel , Service support , Microbiology 11/25/18 16:30 Urine Catheter - [place] Urine Culture - Final GNR lactose syrup mixer helper 11/19/18 18:55 Blood Culture (Wb) - Anticubital Left Blood Culture - Final No growth in 5 days. 11/19/18 18:45 Blood Culture (Wb) - Anticubital Right Blood Culture - Final No growth in 5 days. 11/21/18 08:17 Mucosa - Nasopharyngeal Respiratory Panel (PCR) - Final RSV B 11/19/18 21:03 Urine, Clean Catch Urine Culture - Final Klebsiella pneumoniae sp pneum 11/19/18 19:55 Stool Stool Occult Blood (JEANNE) - Final Laboratory Results - last 24 hr 11/26/18 11/27/18 11/27/18 16:30 06:10 06:10 ESR 38 H Sodium 146 H Potassium 4.6 Chloride 101 Carbon Dioxide 42.0 H Anion Gap 3 L BUN 38 H Creatinine 0.97 Estim Creat Clear Calc 68.06 Est GFR (MDRD) Af Amer 98 Est GFR (MDRD) Non-Af 81 BUN/Creatinine Ratio 39.2 H Glucose 84 Calcium 8.3 L Phosphorus 1.8 L C-React Prot Ext Range 5.32 H Urine pH 2 Ur Random Calcium Cancelled Urine Collection Time 24.0 Urine Total Volume 2620 Urine Calcium < 2.0 Ur Calcium [address] Jonathon Marroquin and Dr. Jet Arnett-detective bowling alley/pulmonary medicine Dr. 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 He additionally complained of severe back pain that started suddenly when he sat down hard in a WC. His stated that he had been unable to walk since then. He had recently had a Kyphoplasty at L2 by . Significant lab in the emergency room included a hemoglobin of 7.0, sodium of 149, serum bicarb of 44, BUN of 97 and creatinine of 2.21. Lactic acid was 1.2. Troponin was elevated at 0.408 and then trended down. UA had 5-10 white blood cells and was nitrite negative. There was 4+ bacteria. An ABG done on a 4 L nasal cannula showed a pH of 7.33, PCO2 of 89 and a PO2 of 122. Chest x-ray showed no infiltrates, pleural effusions or pulmonary vascular congestion. He was admitted to [facility] ICU on 11/19/2018 with acute metabolic encephalopathy on chronic dementia, acute on chronic respiratory failure with hypoxemia and hypercarbia, severe dehydration with hypernatremia, hypotension, acute kidney injury, cystitis and severe anemia. He was transfused and started on Steroids, aerosolized bronchodilators, ceftriaxone and IV fluids. Dr. Arnett was consulted to participate in management. Urine culture grew Klebsiella pneumoniae which was resistant to ampicillin but otherwise pansensitive. Blood cultures had no growth after 5 days. Hemoccult stool was negative. Respiratory panel grew RSV B. A plain x-ray of the back showed a new superior endplate depression at L1. He continued to complain of severe back pain and a CT scan of the lumbar spine was obtained and showed new compression fractures of the T11 and L1 vertebral bodies. There was multilevel degenerative changes and evidence of old laminectomies at L4-5 and L5-S1. He was started on Tylenol 1 GM PO q 8H and Oxy IR 5 mg every 8 hours and this adequately controlled his pain. An echocardiogram was done which showed mild to moderate global left ventricular systolic dysfunction with a 35% EF. The right ventricle was mildly dilated and the right ventricular systolic pressure was increased at 46 consistent with mild to moderate pulmonary hypertension. There was mild enlargement of both atria and no significant valvular heart disease. Dr. Guevara was consulted regarding the severe chronic anemia but, the pt had 2 units of PRBC's and this invalidated the results any blood testing done following the transfusions. He will follow up with the pt in the clinic in 3 months. Because of the multiple compression fractures PTH, vitamin D and a 24 hour urine for quantitative calcium were ordered. Vitamin D levels are still pending at the time of discharge. The calcium corrected for hypoalbuminemia is within normal limits. PTH is mildly elevated at 98.7. Testosterone is low at 6.4. The 24-hour urine for quantitative calcium had 52 mg of calcium per 24- hour period. 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 The PTH is only mildly elevated. Of interest is a low TSH with an A normal T3 and T4. He may have subclinical hyperthyroidism and this may be contributing to bone loss, AF and CM. It may be a good idea to refer him to an forester aide. Also of interest is and increased RA at 130. Rheumatologic disease could be contributing to the n/N anemia and he should be referred to a radiator tester to be evaluated. Would check a CCP. Lasix was held at admission due to severe dehydration and he subsequently developed acute systolic CHF. He was started on IV diuretics. He also went into AF with RVR and the rate was difficult to control until he was started on Amiodarone on 11/26/18. On 11/27/18 he was in NSR with occasional PVC's. He was discharged to [facility] on 11/27/18 for further PT/OT prior to returning home. He will be kept on Amiodarone. He was discharged on Lasix 60 mg daily. He also will continue on Keflex for 7 more doses. I recommend that he has a DEXA in the future and if he has osteoporosis would start a bisphosphonate. He was started on Vitamin D in the hospital. GENERAL: Looks more rested today. There are no family members in his room at the time I examined him. ORAL: moist mucosa, no mucosal lesions NECK: Mild JVD, supple, trachea midline LUNGS: diminished, symmetric chest expansion, no wheezing today, no rales today, still with pursed lip breathing but minimal. No conversational dyspnea today and no accessory muscle use HEART: regular, Normal S1 and S2, no rub, no gallop, telemetry shows NSR with occasional PVC's and some paced beats. ABDOMEN: soft, NT, mildly distended and tympanic, BS present, no guarding with palpation EXTREMITIES: no edema, no cyanosis, no calf tenderness SKIN: No rashes, no breakdown. He has petechiae on the arms from the BP cuff but this is unchanged and he has no rash any where else on his body NEUROLOGIC: no focal neurologic deficits PSYCH: appropriate, normal affect, pleasant This note was generated with gloStreamation software. It may contain incorrect words, spelling, and punctuation that were not noted in checking the note before signing. Patient Problems: Active and Suspected Problems (Last Reviewed 11/19/18 @ 21:52 by Alpesh Caro MD) RSV infection (Acute) Cystitis (Acute) Hypernatremia (Acute) Acute renal failure superimposed on chronic kidney disease (Acute) Cardiomyopathy (Acute) Severe with a 35% ejection fraction Hypophosphatemia (Acute) Elevated parathyroid hormone (Acute) PTH is 98, 24 hour urine Calcium is only 52. 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 - Physical Exam Vital Signs Temp Pulse Resp BP Pulse Ox 97.9 F 96 18 107/64 95 11/27/18 14:09 11/27/18 15:00 11/27/18 14:09 11/27/18 14:09 11/27/18 14:09 Oxygen Flow Rate (L/min) 0.5 Oxygen Delivery Method Nasal Cannula Weight: 149 lb 11.102 oz Body Mass Index (BMI) 19.1 Intake and Output for Last 24 Hours 11/25/18 11/26/18 11/27/18 23:59 23:59 23:59 Intake Total 828 / 828 1595 / 1595 794 / 794 Output Total 1450 / 1450 1950 / 1950 600 / 600 Balance -622 / -622 -355 / -355 194 / 194 Microbiology Past 72 Hours 11/25/18 16:30 Urine Culture - Final Urine Catheter - [place] GNR lactose syrup mixer helper 11/19/18 18:55 Blood Culture - Final Blood Culture (Wb) - Anticubital Left No growth in 5 days. 11/19/18 18:45 Blood Culture - Final Blood Culture (Wb) - Anticubital Right No growth in 5 days. Laboratory Tests Past 24 Hrs 11/26/18 11/27/18 11/27/18 16:30 06:10 06:10 ESR 38 H Sodium 146 H Potassium 4.6 Chloride 101 Carbon Dioxide 42.0 H Anion Gap 3 L BUN 38 H Creatinine 0.97 Estim Creat Clear Calc 68.06 Est GFR (MDRD) Af Amer 98 Est GFR (MDRD) Non-Af 81 BUN/Creatinine Ratio 39.2 H Glucose 84 Calcium 8.3 L Phosphorus 1.8 L C-React Prot Ext Range 5.32 H Vitamin D 25-Hydroxy Urine pH 2 Ur Random Calcium Cancelled Urine Collection Time 24.0 Urine Total Volume 2620 Urine Calcium < 2.0 Ur Calcium 24 Hr 52.4 11/27/18 06:10 ESR Sodium Potassium Chloride Carbon Dioxide Anion Gap BUN Creatinine Estim Creat Clear Calc Est GFR (MDRD) Af Amer Est GFR (MDRD) Non-Af BUN/Creatinine Ratio Glucose Calcium Phosphorus C-React Prot Ext Range Vitamin D 25-Hydroxy Pending Urine pH Ur Random Calcium Urine Collection Time Urine Total Volume Urine Calcium Ur Calcium 24 Hr Home Medications: Medications to take at Discharge Finasteride [Proscar] 5 mg PO DAILY 09/09/15 Isosorbide Mononitrate [Imdur] 30 mg PO DAILY 06/19/16 memantine 5 mg tablet 28 mg PO QDAY 11/09/17 Cyanocobalamin [Vitamin B12] 1,000 mcg PO DAILY@0800 05/02/18 Nitroglycerin 0.4 mg SL PRN PRN 05/02/18 spironolactone 25 mg tablet 12.5 mg PO DAILY tab 09/27/18 Donepezil HCl 5 mg PO QHS 11/19/18 Acetaminophen [Tylenol] 1,000 mg PO Q8 tablet 11/27/18 Albuterol Aerosols [Ventolin Aerosols] 2.5 mg INHALATION Q2H PRN PRN vial.neb. 11/27/18 Amiodarone HCl [Pacerone] 200 mg PO UD #1 tablet 11/27/18 Apixaban [Eliquis] 2.5 mg PO BID tablet 11/27/18 Carvedilol [Coreg (Beta Virgie)] 6.25 mg PO BID tablet 11/27/18 Cephalexin [Keflex] 500 mg PO Q8 #7 capsule 11/27/18 Ergocalciferol [Vitamin D] 50,000 unit PO Q7D capsule 11/27/18 Furosemide 60 mg PO DAILY #1 tab 11/27/18 Ipratropium/Albuterol Sulfate [Duoneb] 3 ml INHALATION Q6H.RT ampul.neb 11/27/18 Losartan Potassium [Cozaar] 25 mg PO DAILY #1 tablet 11/27/18 Na Biphos/Potassium Phosphate [Neutra-Phos Packet] 1 packet PO TID #6 packet 11/27/18 Oxycodone [Oxyir] 5 mg PO Q8 7 Days #21 tab 11/27/18 Oxygen, Home [Home Oxygen] 3 lpm NASAL DAILY PRN PRN #0 11/27/18 Pantoprazole Sodium [Protonix] 40 mg PO DAILY tablet 11/27/18 Prednisone 10 mg PO QDAY #30 tab 11/27/18 Following Prescrptions Were Given to Patient: Amiodarone HCl [Pacerone] 200 mg PO UD #1 tablet Losartan Potassium [Cozaar] 25 mg PO DAILY #1 tablet Oxycodone [Oxyir] 5 mg PO Q8 7 Days #21 tab Prednisone 10 mg PO QDAY #30 tab Na Biphos/Potassium Phosphate [Neutra-Phos Packet] 1 packet PO TID #6 packet Primary Care Physician: Sony Allison MD [Primary Care Provider] - Please follow up with your Primary Care Physician in: Following discharge from SNF Please Follow Up With: Alpesh Guevara MD When: 3 months Please Follow Up With: Jonathon Marroquin DO When: 2 weeks Please Follow Up With: Lamar Weiss MD When: as needed for pain management Disposition: [facility] facility Minutes spent on discharge:: 45 Patient Condition:: Stable Medical Necessity - Tobacco Use Smoking Status: Former smoker Tobacco Use: Non-smoker Meaningful Use Info Meaningful Use Diagnoses (Choose all that apply): CHF - CHF ANDREA/ARB ordered at discharge?: Yes Documented LVEF (%): 35 Code Visit Inpatient E&M: 52425 Disch Hosp
--- NOTE | 2018-11-27 15:39 | NURSING ---
report called to Kelly REBOLLEDO at [facility]
[2018-11-28 10:08] LABS: Vitamin D,25 Hydroxy 41.8 ng/mL (29.95-100.01)
[2018-11-28 16:45] LABS: Vitamin D 1,25-Dihydroxy 13.3 pg/mL (19.9-79.3)
== END 2018-11-27 16:03 | disposition skilled nursing facility (03) | DRG 189 ==
LOC: ED 19:54 → ICU 22:06 → PCU 11-21 15:20
PROVIDERS: Internal Medicine Critical Care Medicine; Admitting Provider Hospitalist; Emergency Provider Emergency Medicine; Family Provider Family Medicine; PCP Family Medicine; Referring Provider Hospitalist; Visit Provider Internal Medicine
DX: J96.21 Acute and chronic respiratory failure with hypoxia (principal); G93.41 Metabolic encephalopathy; I50.23 Acute on chronic systolic (congestive) heart failure; N17.9 Acute kidney failure, unspecified; N30.00 Acute cystitis without hematuria; J44.1 Chronic obstructive pulmonary disease with (acute) exacerbation; E87.0 Hyperosmolality and hypernatremia; I42.0 Dilated cardiomyopathy; M48.56XA Collapsed vertebra, not elsewhere classified, lumbar region, initial encounter for fracture; M48.54XA Collapsed vertebra, not elsewhere classified, thoracic region, initial encounter for fracture; R64 Cachexia; Z68.1 Body mass index [BMI] 19.9 or less, adult; I42.9 Cardiomyopathy, unspecified; J96.22 Acute and chronic respiratory failure with hypercapnia; I25.10 Atherosclerotic heart disease of native coronary artery without angina pectoris; E86.0 Dehydration; B96.1 Klebsiella pneumoniae [K. pneumoniae] as the cause of diseases classified elsewhere; E83.39 Other disorders of phosphorus metabolism; D64.9 Anemia, unspecified; G30.9 Alzheimer's disease, unspecified; I48.2 Chronic atrial fibrillation; N18.3 Chronic kidney disease, stage 3 (moderate); F02.80 Dementia in other diseases classified elsewhere, unspecified severity, without behavioral disturbance, psychotic disturbance, mood disturbance, and anxiety; B97.4 Respiratory syncytial virus as the cause of diseases classified elsewhere; E11.9 Type 2 diabetes mellitus without complications; I11.0 Hypertensive heart disease with heart failure; G47.33 Obstructive sleep apnea (adult) (pediatric); M21.371 Foot drop, right foot; F03.90 Unspecified dementia, unspecified severity, without behavioral disturbance, psychotic disturbance, mood disturbance, and anxiety; M81.0 Age-related osteoporosis without current pathological fracture; Z95.810 Presence of automatic (implantable) cardiac defibrillator; Z79.01 Long term (current) use of anticoagulants; Z98.1 Arthrodesis status; Z79.899 Other long term (current) drug therapy; Z87.891 Personal history of nicotine dependence; Z99.81 Dependence on supplemental oxygen
CPT/HCPCS: 36415; 36600; 51702; 71045; 71046; 72100; 72131; 80048; 80053; 80162; 81001; 82040; 82274; 82306; 82340; 82607; 82652; 82728; 82746; 82784; 82803; 82962; 83540; 83550; 83605; 83735; 83880; 83970; 84100; 84165; 84402; 84439; 84443; 84481; 84484; 85014; 85018; 85025; 85027; 85045; 85610; 85652; 85730; 86038; 86140; 86225; 86235; 86334; 86335; 86431; 86850; 86900; 86920; 86922; 87040; 87077; 87086; 87088; 87186; 87633; 93005; 93306; 94002; 94003; 94640; 94667; 94668; 94762; 97110; 97116; 97162; 97165; 97530; 97802; 99251; 99285; J1756; J7030; J7040; J7050; P9016; A4216; G0463; J1940

== ENCOUNTER → 2018-12-26 04:00 | Outpatient (REF) | payer MEDICARE, OTHER, SELFPAY ==
[2018-11-19 22:45] VITALS: BMI 19.1
[2018-12-26 06:30] LABS: Anion Gap 6 (5-15); BUN 43 mg/dL (7-18); BUN/Creat Ratio 30.7 RATIO (10-20); Calcium,Total 8.3 mg/dL (8.5-10.1); Chloride 101 mmol/L (98-107); EST Glomerular Filtration Rate 53 mL/min (>60); Est Glom Filt Rate - Afr Amer 64 mL/min (>60); Glucose 132 mg/dL (74-106); Potassium 4.3 mmol/L (3.5-5.1); Sodium Level 146 mmol/L (136-145)
[2018-12-28 14:22] VITALS: BMI 20.5
== END ==
LOC: OLS.WHLEAS 04:00
PROVIDERS: Visit Provider Family Medicine
DX: I48.91 Unspecified atrial fibrillation (principal); D64.9 Anemia, unspecified; J44.9 Chronic obstructive pulmonary disease, unspecified; E11.9 Type 2 diabetes mellitus without complications
CPT/HCPCS: 36415; 80048

== ENCOUNTER → 2018-12-28 14:56 | Outpatient (CLI) | payer MEDICARE, OTHER, SELFPAY ==
[2018-12-28 14:22] VITALS: BMI 20.5
--- NOTE | 2018-12-28 15:40 | RAD_ITS ---
STUDY: X-RAY CHEST REASON FOR EXAM: Male, 68 years old. Cough with shortness of breath TECHNIQUE: PA and lateral COMPARISON: November 26, 2017 FINDINGS: In general the lungs appear to be hyperinflated however there is opacification of the upper lobes bilaterally possibly representing infiltrates or focal nodules in association with cephalad retraction of the yee . There is pleural thickening of the left costophrenic sulcus. There is no pleural effusion or pneumothorax Normal size heart. Normal mediastinum and yee. Normal visualized pulmonary arteries. There is mild tortuosity of the aortic arch and descending thoracic aorta. Pacemaker noted on the left with electrodes in satisfactory position Dorsal spine demonstrates spondylosis. Normal visualized ribs, clavicles, and shoulders. Postsurgical changes of the cervical spine There is no demonstrated abnormality of the visualized soft tissue structures of the upper abdomen. No significant change since prior exam RAD/Chest PA and Lateral IMPRESSION: COPD and superimposed ASHD. Opacification of the upper lobes possibly due to infiltrates or nodularity. CT would be helpful for further evaluation if indicated Electronically Signed: Elijah Munoz MD at 17:05 EST , Service support ,
[2018-12-28 17:04] LABS: Absolute Lymphocyte Count 0.41 X10^3/ul (0.83-4.51); Absolute Neutrophil Count 4.2 X10^3/uL (2.0-7.7); Hematocrit 33.1 % (40-54); Hemoglobin 8.7 g/dl (13.0-16.5); Lymphocyte # 0.41 X10^3/ul (4.0); Lymphocyte % 8.2 % (19-41); Mean Corp Hgb Conc 26.3 g/gl (32-36); Mean Corpuscular Hgb 26.2 pg (27.0-32.0); Mean Corpuscular Volume 99.7 fL (80-94); Mean Platelet Vol. 10.4 fl (6.2-12.0); Monocyte# 0.34 X10^3/uL; Monocyte% 6.8 % (0-10); Neutrophil % 84.6 % (47-70); Platelet Count 197 K/mm3 (150-450); RBC Distribution Width CV 18.5 % (11.6-14.6); RBC Distribution Width SD 61.9 fl (35.1-43.9); Red Blood Count 3.32 M/mm3 (4.6-6.2)
[2018-12-28 17:05] LABS: Anion Gap 3 (5-15); BUN 36 mg/dL (7-18); BUN/Creat Ratio 32.1 RATIO (10-20); Calcium,Total 8.7 mg/dL (8.5-10.1); Chloride 101 mmol/L (98-107); Creatinine, Serum 1.12 mg/dL (0.70-1.30); EST Glomerular Filtration Rate 69 mL/min (>60); Est Glom Filt Rate - Afr Amer 83 mL/min (>60); Glucose 113 mg/dL (74-106); Potassium 4.6 mmol/L (3.5-5.1); Sodium Level 142 mmol/L (136-145)
[2018-12-28 17:23] LABS: Differential Indicated SCAN CRITERIA MET; POSITIVE COUNT NO; POSITIVE DIFFERENTIAL YES; POSITIVE MORPHOLOGY NO
[2018-12-28 17:30] LABS: BNP,B-Type NATRIURETIC PEPTIDE 357.3 pg/mL (0-100)
[2018-12-28 17:42] LABS: Anisocytosis 2+; Platelet Estimate ADEQUATE (ADEQ)
[2018-12-28 17:43] LABS: Hypochromasia 1+; Ovalocyte 1+
[2018-12-29 12:34] LABS: Pathologist Review Reviewed
== END ==
PROVIDERS: Family Provider Family Medicine; PCP Family Medicine; Referring Provider Nurse Practitioner Acute Care; Visit Provider Nurse Practitioner Acute Care
DX: J44.9 Chronic obstructive pulmonary disease, unspecified (principal); I42.9 Cardiomyopathy, unspecified; I48.91 Unspecified atrial fibrillation; D64.9 Anemia, unspecified; I10 Essential (primary) hypertension; E11.9 Type 2 diabetes mellitus without complications
CPT/HCPCS: 36415; 71046; 80048; 82306; 83880; 85025

== ENCOUNTER → 2018-12-28 | Outpatient (REF) | payer MEDICARE, OTHER, SELFPAY ==
[2018-11-19 22:45] VITALS: BMI 19.1
[2018-12-28 08:46] LABS: Vitamin D,25 Hydroxy 23.9 ng/mL (29.95-100.01)
[2018-12-28 14:22] VITALS: BMI 20.5
== END | disposition home or self-care (01) ==
LOC: OLS.WHLEAS 07:00
PROVIDERS: Visit Provider Family Medicine
DX: I48.91 Unspecified atrial fibrillation (principal); D64.9 Anemia, unspecified; E11.9 Type 2 diabetes mellitus without complications; I10 Essential (primary) hypertension
CPT/HCPCS: 36415; 82306

== ENCOUNTER → 2019-01-04 05:00 | Outpatient (REF) | payer MEDICARE, OTHER, SELFPAY ==
[2018-12-28 14:22] VITALS: BMI 20.5
[2019-01-04 07:03] LABS: Hemoglobin 8.3 g/dl (13.0-16.5); Mean Corp Hgb Conc 26.8 g/gl (32-36); Mean Corpuscular Hgb 26.9 pg (27.0-32.0); Mean Corpuscular Volume 100.6 fL (80-94); Platelet Count 181 K/mm3 (150-450); RBC Distribution Width CV 17.6 % (11.6-14.6); RBC Distribution Width SD 58.7 fl (35.1-43.9); Red Blood Count 3.08 M/mm3 (4.6-6.2); White Blood Count 6.3 K/mm3 (4.4-11.0)
[2019-01-04 07:08] LABS: Scan Indicated on CBC? Y/N NO
[2019-01-04 07:09] LABS: Anion Gap 4 (5-15); BUN 29 mg/dL (7-18); BUN/Creat Ratio 25.7 RATIO (10-20); Calcium,Total 8.7 mg/dL (8.5-10.1); Chloride 96 mmol/L (98-107); Creatinine, Serum 1.13 mg/dL (0.70-1.30); EST Glomerular Filtration Rate 68 mL/min (>60); Est Glom Filt Rate - Afr Amer 82 mL/min (>60); Glucose 151 mg/dL (74-106); Potassium 4.1 mmol/L (3.5-5.1); Sodium Level 145 mmol/L (136-145)
== END ==
LOC: OLS.WHLEAS 05:00
PROVIDERS: Visit Provider Family Medicine
DX: I48.91 Unspecified atrial fibrillation (principal); D64.9 Anemia, unspecified; E11.9 Type 2 diabetes mellitus without complications; I10 Essential (primary) hypertension; J96.02 Acute respiratory failure with hypercapnia
CPT/HCPCS: 36415; 80048; 85027

== ENCOUNTER → 2019-01-09 12:35 | Outpatient (REF) | payer MEDICARE, OTHER, SELFPAY ==
[2018-12-28 14:22] VITALS: BMI 20.5
[2019-01-09 13:35] LABS: BNP,B-Type NATRIURETIC PEPTIDE 322.2 pg/mL (0-100)
== END ==
LOC: OLS.WHLEAS 12:35
PROVIDERS: Visit Provider Family Medicine
DX: J44.9 Chronic obstructive pulmonary disease, unspecified (principal); E11.9 Type 2 diabetes mellitus without complications; N17.9 Acute kidney failure, unspecified; J96.21 Acute and chronic respiratory failure with hypoxia; I50.32 Chronic diastolic (congestive) heart failure
CPT/HCPCS: 36415; 83880

== ENCOUNTER → 2019-01-11 06:35 | Outpatient (REF) | payer MEDICARE, OTHER, SELFPAY ==
[2018-12-28 14:22] VITALS: BMI 20.5
[2019-01-11 09:29] LABS: Anion Gap 3 (5-15); BUN 23 mg/dL (7-18); BUN/Creat Ratio 22.8 RATIO (10-20); Calcium,Total 8.3 mg/dL (8.5-10.1); Chloride 97 mmol/L (98-107); Creatinine, Serum 1.01 mg/dL (0.70-1.30); EST Glomerular Filtration Rate 78 mL/min (>60); Est Glom Filt Rate - Afr Amer 94 mL/min (>60); Glucose 61 mg/dL (74-106); Potassium 4.6 mmol/L (3.5-5.1); Sodium Level 141 mmol/L (136-145)
[2019-01-11 09:37] LABS: Hematocrit 40.9 % (40-54); Hemoglobin 12.5 g/dl (13.0-16.5); Mean Corp Hgb Conc 30.6 g/gl (32-36); Mean Corpuscular Hgb 30.8 pg (27.0-32.0); Mean Corpuscular Volume 100.7 fL (80-94); Mean Platelet Vol. 11.2 fl (6.2-12.0); Platelet Count 259 K/mm3 (150-450); RBC Distribution Width SD 61.5 fl (35.1-43.9); Red Blood Count 4.06 M/mm3 (4.6-6.2); White Blood Count 8.5 K/mm3 (4.4-11.0)
[2019-01-11 09:40] LABS: Scan Indicated on CBC? Y/N NO
[2019-01-11 10:11] LABS: BNP,B-Type NATRIURETIC PEPTIDE 300.2 pg/mL (0-100)
== END ==
LOC: OLS.WHLEAS 06:35
PROVIDERS: Visit Provider Family Medicine
DX: I48.91 Unspecified atrial fibrillation (principal); D64.9 Anemia, unspecified; E11.9 Type 2 diabetes mellitus without complications; I10 Essential (primary) hypertension; J96.02 Acute respiratory failure with hypercapnia; J12.1 Respiratory syncytial virus pneumonia; J96.21 Acute and chronic respiratory failure with hypoxia; E87.0 Hyperosmolality and hypernatremia
CPT/HCPCS: 36415; 80048; 83880; 85027